=== PATIENT | female | born 1960 | race Caucasian/White ===

== ENCOUNTER 2021-11-12 22:07 | Inpatient (IN) ==
[2021-11-12] MEDS ORDERED: dilTIAZem HCl 5 MG/ML 5 ML VIAL IV STA (22:56)
[2021-11-12] MEDS ORDERED: SODIUM CHLORIDE 0.9% 500 ML IV STA (22:56)
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
[2021-11-12 23:18] LABS: Basophils # (auto) 0.03 K/uL (0-0.2); Basophils % (auto) 0.3 %; Hematocrit (blood only) 28.6 % (37-47); Hemoglobin 8.8 g/dL (12.0-16.0); Immature Granulocytes # (auto) 0.04 K/uL (0.00-0.02); Immature Granulocytes % (auto) 0.4 %; Lymphocytes # (auto) 1.93 K/uL (1.2-3.4); Lymphocytes % (auto) 19.1 %; Mean Corpuscular Hemoglobin 17.6 pg (25-34); Mean Corpuscular Hgb Conc 30.8 g/dL (32-36); Mean Corpuscular Volume 57.3 fL (80-100); Mean Platelet Volume 8.6 fL (7.4-10.4); Monocytes # (auto) 0.65 K/uL (0.11-0.59); Monocytes % (auto) 6.4 %; Neutrophils # (auto) 7.04 K/uL (1.4-6.5); Neutrophils % (auto) 69.8 %; Platelet Count 667 K/uL (130-400); RDW Coefficient of Variation 16.6 % (11.5-14.5); RDW Standard Deviation 34.6 fL (36.4-46.3); Red Blood Count 4.99 M/uL (4.2-5.4); White Blood Count 10.09 K/uL (4.8-10.8)
[2021-11-12] MEDS ORDERED: METOPROLOL TARTRATE 1 MG/ML VIAL IV STA (23:28)
[2021-11-12 23:38] LABS: Hypochromasia Present; Microcytosis Present; Schistocytes 1+; Target Cells 1+
[2021-11-12 23:43] LABS: Acetaminophen < 3 ug/ml (10-30); Salicylate < 3.0 mg/dl (3.0-30); Troponin I High Sensitivity 3.4 pg/ml (0-14)
[2021-11-12 23:45] LABS: Albumin Globulin Ratio 0.7 (0.9-2); Albumin Level 3.4 gm/dl (3.4-5.0); BUN Creatinine Ratio 22.5 (10-20); Bilirubin,Total 0.5 mg/dl (0.2-1.0); Calcium 9.3 mg/dl (8.5-10.1); Creatinine Clr Calc Pharmacy 90.8 ml/min; Est GFR (African American) 82.2 ml/min; Est GFR (Non-African American) 70.9 ml/min; Globulin 5.1 gm/dl (2.5-4.0); Total Protein 8.5 gm/dl (6.0-8.3)
[2021-11-12 23:51] LABS: Thyroid Stimulating Hormone 27.669 uIu/ml (0.300-4.500)
[2021-11-13 00:37] LABS: T4 Free Thyroxine 0.39 ng/dl (0.61-1.60)
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
[2021-11-13] MEDS ORDERED: MoRPHine SULFATE 4 MG/ML 1 ML CARP\\VIAL IV STA (01:57)
[2021-11-13] MEDS ORDERED: STAT IV Infusion **Titration per Protocol STA (02:29)
[2021-11-13 02:33] LABS: Partial Thromboplastin Time 26.6 Seconds (21.0-31.0); Prothrombin Time 10.4 Seconds (9.0-12.0)
[2021-11-13] MEDS: dilTIAZem HCL 125 MG in DEXTROSE 5% 100 ML IV SCH ×2 (03:20→17:19)
[2021-11-13] MEDS ORDERED: Heparin IV Adult Wt-Based Low-Dose *NO* Bolus Protocol IV SCH (05:34)
[2021-11-13] MEDS ORDERED: traMADol HCL 50 MG TABLET PO PRN (05:34)
[2021-11-13] MEDS ORDERED: NITROGLYCERIN SL 0.4 MG/TAB TAB SL PRN (05:34)
[2021-11-13] MEDS ORDERED: HEPARIN SODIUM/DEXTROSE 25,000 UNITS/500 ML BAG IV SCH (05:34)
[2021-11-13] MEDS: FUROSEMIDE 40 MG/4 ML VIAL IV SCH ×2 (06:18→18:07)
[2021-11-13] MEDS ORDERED: LEVOTHYROXINE SODIUM 25 MCG TABLET PO SCH (06:30)
[2021-11-13] MEDS: cefTRIAXone SODIUM 2,000 MG in DEXTROSE 5% 50 ML IV SCH (06:42)
--- NOTE | 2021-11-13 07:28 | Ultrasound Report ---
RIGHT LOWER EXTREMITY VENOUS DOPPLER CLINICAL HISTORY: R LE swelling eval DVT COMPARISON STUDY: Bilateral lower extremity venous Doppler ultrasound February 28, 2013. TECHNIQUE: Sonography of the deep venous system of the right lower extremity was performed. Compress ion and augmentation were evaluated. FINDINGS: This exam is compromised by suboptimal penetration, particularly affecting visualization of the calf vessels given edema. The right common femoral, superficial femoral and popliteal veins were compressible. Augmentation was normal. Flow was shown within the deep calf vessels. IMPRESSION: 1. Technically difficult exam but no evidence of deep venous thrombus within the right lower extremit y. 2. Right calf edema, a nonspecific finding. No discrete fluid collection. ACT 112: Negative or not required by law. Electronically signed by: Apolinar Mendoza M.D. 11/13/2021 7:27 AM
[2021-11-13 07:49] LABS: Basophils # (auto) 0.02 K/uL (0-0.2); Basophils % (auto) 0.3 %; Eosinophils # (auto) 0.35 K/uL (0-0.5); Eosinophils % (auto) 4.8 %; Hematocrit (blood only) 24.6 % (37-47); Hemoglobin 7.4 g/dL (12.0-16.0); Immature Granulocytes # (auto) 0.01 K/uL (0.00-0.02); Immature Granulocytes % (auto) 0.1 %; Lymphocytes # (auto) 1.83 K/uL (1.2-3.4); Lymphocytes % (auto) 25.1 %; Mean Corpuscular Hemoglobin 17.2 pg (25-34); Mean Corpuscular Hgb Conc 30.1 g/dL (32-36); Mean Corpuscular Volume 57.2 fL (80-100); Mean Platelet Volume 8.7 fL (7.4-10.4); Monocytes # (auto) 0.72 K/uL (0.11-0.59); Monocytes % (auto) 9.9 %; Neutrophils # (auto) 4.35 K/uL (1.4-6.5); Neutrophils % (auto) 59.8 %; Platelet Count 575 K/uL (130-400); RDW Coefficient of Variation 16.5 % (11.5-14.5); RDW Standard Deviation 34.4 fL (36.4-46.3); White Blood Count 7.28 K/uL (4.8-10.8)
[2021-11-13] MEDS: TOPIRAMATE 100 MG TAB PO SCH ×2 (08:07→21:20)
[2021-11-13] MEDS: ASPIRIN 81 MG ECTAB PO SCH (08:07)
[2021-11-13] MEDS: busPIRone 15 MG TAB PO SCH ×2 (08:07→21:22)
[2021-11-13] MEDS: PANTOprazole 40 MG TAB PO SCH (08:08)
[2021-11-13] MEDS: DULoxetine HCL 60 MG CAP PO SCH ×2 (08:08→21:20)
[2021-11-13] MEDS: rOPINIRole HCL 1 MG TABLET PO SCH ×3 (08:08→21:22)
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
[2021-11-13] MEDS: ACETAMINOPHEN 325 MG TAB PO PRN ×2 (08:15→18:06)
[2021-11-13 08:17] LABS: Hypochromasia Present; Microcytosis Present; Poikilocytosis Present; Target Cells 1+
[2021-11-13 08:31] LABS: BUN Creatinine Ratio 15.9 (10-20); Calcium 7.7 mg/dl (8.5-10.1); Creatinine Clr Calc Pharmacy 91.8 ml/min; Est GFR (African American) 83.4 ml/min; Est GFR (Non-African American) 71.9 ml/min; Magnesium 1.8 mg/dl (1.7-2.4); Potassium 3.3 mmol/L (3.5-5.1)
[2021-11-13 08:34] LABS: Troponin I High Sensitivity 2.5 pg/ml (0-14)
[2021-11-13] MEDS ORDERED: PHARMACY GLYCEMIC MGMT CONSULT PRN (08:36)
[2021-11-13 08:41] LABS: Folate (Folic Acid) 15.45 ng/ml (>5.38)
[2021-11-13] MEDS ORDERED: AMIODARONE 200 MG TAB PO SCH (09:00)
--- NOTE | 2021-11-13 09:33 | XRay Report ---
XR chest 1V portable HISTORY: 61 years-old Female Chest Pain . Acute atypical chest pain COMPARISON: Chest radiograph 11/03/2021 TECHNIQUE: Portable AP view of the chest FINDINGS: The cardiac silhouette is enlarged. Pulmonary vascular congestion with interstitial coarsening. No pn eumothorax or large pleural effusion. Degenerative changes of the shoulders and spine. IMPRESSION: Cardiomegaly with pulmonary vascular congestion and mild interstitial coarsening which ma y represent developing pulmonary edema. ACT 112: Negative or not required by law. The above report was generated using voice recognition software. It may contain grammatical, syntax o r spelling errors. Electronically signed by: Nelson Hernández M.D. 11/13/2021 9:31 AM
[2021-11-13 09:51] LABS: BUN Creatinine Ratio 19.5 (10-20); Calcium 8.8 mg/dl (8.5-10.1); Creatinine Clr Calc Pharmacy 98.5 ml/min; Est GFR (African American) 90.8 ml/min; Est GFR (Non-African American) 78.3 ml/min; Potassium 3.8 mmol/L (3.5-5.1)
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
[2021-11-13 10:20] LABS: Estimated Average Glucose 140 mg/dl; Hemoglobin A1C 6.5 % (4.5-5.6)
--- NOTE | 2021-11-13 11:33 | Psychiatric Consultation ---
Date of Consultation November 13, 2021 Impression / Recommendations Impression This is a 61 yo with a history of depression, anxiety and possibly BPAD admitted medically. Acute risk of self-harm is low given denial of SI, no hx prior attempts, strong reasons for living, and improvement in mood. Suspect untreated afib and elevated TSH contributing to recent worsening of anxiety, SI statement on arrival to ED seems to be in context of situation stressor of argument and has now resolved with being admitted to hospital and medical conditions potentially contributing to previous distress. Reasonable to continue with prior to admission Cymbalta, Buspar and Topimax. Limited data for use of Topimax for BPAD and given her recollection of no recent episodes of ekaterina suspect BPAD less likely. Psych liason to attempt further evaluation of mood symptoms via PHQ-9 when she is able to tolerate a more extended interview. Could benefit from establishment would local psychiatric providers if she remains in this region. 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 Risk Factors Assessment : Yes Do You Have Access To A Gun?: No Health Problems: Yes Mental Health Diagnoses: Yes Substance Use Disorders: No Previous Attempt: No Family History of Suicide: No Previous Psychiatric Hospitalization: Yes Hopelessness: No Protective Factors Assessment Stable Relationships: Yes Supportive Family: Yes Psych History Identifying Data 61 yo woman who relocated to [facility] from [place] and has been staying with a friend admitted medically for afib. Psychiatry consulted for suicide risk assessment. Chief Complaint "I'm pretty good". History of Present Illness Kym is very tired this morning but with repeated verbal prompts is able to participate in a short interview. She is fully oriented. Recalls getting in an argument with a friend with whom she has been staying since moving to [facility] to be closer to her children. She felt overwhelmed and called 911 due to this argument and she states due to worsening leg pain. 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 Since that time she has been denying SI consistently. This morning states she did have those brief thoughts of SI with plan "because I was overwhelmed" and expands "they were just words, I wouldn't do that". She denies current SI stating "I would never hurt myself" and goes on to say she "absolutely" has reasons to live including her children and grandchildren and stating she wants to be around for many years to "see my grandkids graduate". Her grandchildren are currently ages 9-13yo. She reports her mood has been "pretty good" since being admitted to the hospital and confirms that she is prescribed Cymbalta, Buspar and Topimax for depression and anxiety. She cannot recall why she takes Topimax, per chart review appears possible hx of BPAD. She cannot recall any recent or past manic episodes. Recalls one prior psych hospitalization, sometime within the last 10 years, for depression but denies having any SI at that time. No history of prior suicide attempts. She feels safe in the hospital states she would alter nursing should SI re-develop in the future and demonstrates how to correctly use her call button should this occur. Past Psychiatric History Outpatient Services: denies any local services Do You Have Access To A Gun?: No History of Previous Suicide Attempt: No Past Medication Trials: unknown Allergies Allergy/AdvReac Type Severity Reaction Status Date / Time chiquitalan G-F 20 Allergy Severe CAN'T Verified 11/12/21 23:16 REMEMBER mushroom Allergy Intermediate RASH Verified 11/12/21 23:16 Home Medications Medication Instructions Recorded Confirmed Type amiodarone 200 mg tablet 200 mg PO DAILY 11/12/21 11/12/21 History atorvastatin 10 mg tablet 10 mg PO HS 11/12/21 11/12/21 History buspirone 10 mg tablet 10 mg PO Q12H 11/12/21 11/12/21 History buspirone 15 mg tablet 15 mg PO BID 11/12/21 11/12/21 History buspirone 5 mg tablet 10 mg PO BID 11/12/21 11/12/21 History cyclobenzaprine 10 mg tablet 10 mg PO Q8H PRN 11/12/21 11/12/21 History diclofenac sodium 25 mg 25 mg PO TID PRN 11/12/21 11/12/21 History tablet,delayed release digoxin 125 mcg (0.125 mg) tablet 125 mcg PO QPM 11/12/21 11/12/21 History diltiazem HCl 30 mg tablet 30 mg PO TID 11/12/21 11/12/21 History duloxetine 60 mg capsule,delayed 60 mg PO BID 11/12/21 11/12/21 History release sprinkle furosemide 20 mg tablet (Lasix) 20 mg PO BID 11/12/21 11/12/21 History levothyroxine 25 mcg tablet 25 mcg PO DAILY 11/12/21 11/12/21 History metoprolol tartrate 50 mg tablet 50 mg PO BID 11/12/21 11/12/21 History omeprazole 20 mg tablet,delayed 40 mg PO DAILY 11/12/21 11/12/21 History release pantoprazole 40 mg tablet,delayed 40 mg PO DAILY 11/12/21 11/12/21 History release ropinirole 0.25 mg tablet 0.25 mg PO HS 11/12/21 11/12/21 History ropinirole 1 mg tablet 1 mg PO TID 11/12/21 11/12/21 History topiramate 100 mg tablet 100 mg PO BID 11/12/21 11/12/21 History tramadol 50 mg tablet 50 mg PO DIRECTED PRN 11/12/21 11/12/21 History zolpidem 6.25 mg tablet,extended 6.25 mg PO HS 11/12/21 11/12/21 History release,multiphase (Ambien CR) Personal History Living Arrangements: Homeless (had been staying with a friend) Number Of Children: 3 Beliefs That Will Affect Care: None Patient History Social History Smoking Status: Never smoker Hx Alcohol Use: No Hx Substance Use: Yes Last Used Substance Other:: 30 years ago 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 Beliefs That Will Affect Care: None Current Living Situation: Homeless Feels Safe at Home: Yes Safety Concerns: Feels Safe At This Time Physical Exam Psychiatric: Orientation: alert and oriented x 3 Apperance: appropriately dressed and appropriately groomed Eye Contact: good eye contact Motor Behavior: no abnormal motor movements Speech: normal rate/rhythm/volume of speech Affect: euthymic affect Mood: no depressed mood and no anxious mood Thought Process: goal directed thought process Thought Content: reality based without delusions Suicidal Thoughts: denies suicidal thoughts Homicidal Thoughts: denies homicidal thoughts Hallucinations: no auditory hallucinations and no visual hallucinations Cognition: recent memory grossly intact, attention grossly intact and language grossly intact Estimated Intelligence: consistent with education level Insight: + fair insight Judgement: + limited judgement Vital Signs (Past 24 Hours): Last Vital Signs Temp 36.8 C 11/13/21 07:54 Pulse 156 H 11/13/21 07:54 Resp 20 11/13/21 07:54 BP 118/90 11/13/21 07:54 Pulse Ox 96 11/13/21 07:54 Review of Systems All systems reviewed & are unremarkable except as noted in HPI & below Results & Data (PSY) Laboratory Results Na+ reviewed-initially low but appears redraw normal and consistent with prior results from ED; elevated TSH Diagnostic Findings EKG reviewed, in afib, QTc normal Medications Administered Acetaminophen (Acetaminophen 325 Mg Tab) 650 mg PO Q4H PRN PRN Reason: Pain or Fever Stop: 12/13/21 05:33 Last Admin: 11/13/21 08:15 Dose: 650 mg Documented by: [id number] Aspirin (Aspirin 81 Mg Ectab) 81 mg PO QAM [facility] Stop: 12/13/21 08:59 Last Admin: 11/13/21 08:07 Dose: 81 mg Documented by: [id number] Buspirone HCl (Buspirone 15 Mg Tab) 15 mg PO BID [facility] Stop: 12/13/21 08:59 Last Admin: 11/13/21 08:07 Dose: 15 mg Documented by: [id number] Duloxetine HCl (Duloxetine Hcl 60 Mg Cap) 60 mg PO BID [facility] Stop: 12/13/21 08:59 Last Admin: 11/13/21 08:08 Dose: 60 mg Documented by: [id number] Furosemide (Furosemide 40 Mg/4 Ml Vial) 40 mg IV [id number] [facility] Stop: 12/13/21 05:59 Last Admin: 11/13/21 06:18 Dose: 40 mg Documented by: [id number] Diltiazem HCl 125 mg/ Dextrose 125 mls @ 7.5 mls/hr IV .[id number] [facility]; Protocol Stop: 12/13/21 02:29 Last Titration: 11/13/21 03:54 Dose: 7.5 mg/hr, 7.5 mls/hr Documented by: [id number] Cosigned by: [id number] Admin: 11/13/21 03:20 Dose: 5 mg/hr, 5 mls/hr Documented by: [id number] Cosigned by: [id number] Ceftriaxone Sodium 2,000 mg/ (Dextrose) 70 mls @ 100 mls/hr IV Q24H [facility]; Protocol Stop: 11/20/21 05:59 Last Infusion: 11/13/21 07:38 Dose: 0 mls/hr Documented by: [id number] Admin: 11/13/21 06:42 Dose: 100 mls/hr Documented by: [id number] Levothyroxine Sodium (Levothyroxine Sodium 25 Mcg Tablet) 25 mcg PO DAILYBB [facility]IRE[facility] Stop: 12/13/21 06:29 Last Admin: 11/13/21 06:18 Dose: 25 mcg Documented by: [id number] Pantoprazole Sodium (Pantoprazole 40 Mg Tab) 40 mg PO DAILY [facility] Stop: 12/13/21 08:59 Last Admin: 11/13/21 08:08 Dose: 40 mg Documented by: [id number] Ropinirole HCl (Ropinirole Hcl 1 Mg Tablet) 1 mg PO TID [facility] Stop: 12/13/21 08:59 Last Admin: 11/13/21 08:08 Dose: 1 mg Documented by: [id number] Topiramate (Topiramate 100 Mg Tab) 100 mg PO BID [facility] Stop: 12/13/21 08:59 Last Admin: 11/13/21 08:07 Dose: 100 mg Documented by: [id number] Coding Level of Care Code 02487 [facility] Intl Hosp Care Lvl 2 Diagnoses Adjustment disorder with disturbance of emotion F43.29
[2021-11-13] MEDS: METOPROLOL TARTRATE 25 MG TAB PO SCH ×2 (11:43→18:06)
[2021-11-13 13:05] LABS: Hematocrit (blood only) 25.1 % (37-47); Hemoglobin 7.5 g/dL (12.0-16.0)
--- NOTE | 2021-11-13 13:17 | Electrocardiogram Report ---
Test Reason : Blood Pressure : / mmHG Vent. Rate : 121 BPM Atrial Rate : 122 BPM P-R Int : 000 ms QRS Dur : 086 ms QT Int : 308 ms P-R-T Axes : 000 061 023 degrees QTc Int : 437 ms Atrial fibrillation with rapid ventricular response Low voltage QRS Nonspecific T wave abnormality Abnormal ECG When compared with ECG of 03-NOV-2021 12:30, No significant change was found Confirmed by Mingo Tucker ([id number]) on 11/13/2021 1:16:53 PM Referred By: REFERRED SELF Confirmed By:Ruben Tucker
[2021-11-13 16:07] LABS: Appearance Urine Clear (Clear); Bacteria Urine Automated 2+ (Negative); Bilirubin Urine Negative (Negative); Blood Urine Negative (Negative); Color Urine Yellow; Epithelial Cell Urine Auto 0-5 /lpf (0-5); Glucose Urine UA Negative (Negative); Ketones Urine Negative (Negative); Leukocyte Esterase Urine 3+ (Negative); Nitrite Urine Negative (Negative); Protein Urine Negative (Negative); RBC Urine Automated 0-4 /hpf (0-4); Specific Gravity Urine 1.008 (1.000-1.030); Urobilinogen Urine Negative (Negative); pH Urine 8.5 (4.5-7.5)
[2021-11-13 16:28] LABS: Amphetamines+Metham, Urine Neg (Neg); Barbiturates, Urine Neg (Neg); Benzodiazepine, Urine Neg (Neg); Cocaine, Urine Neg (Neg); MDMA (Ecstacy), Urine Neg (Neg); Methadone, Urine Neg (Neg); Opiate, Urine Pos (Neg); Phencyclidine, Urine Neg (Neg)
--- NOTE | 2021-11-13 17:29 | Communication Note ---
Date of Service: November 13, 2021 Pt was seen and examined for follow up of anxiety and suicidal thought. Lying in bed very drowsy and sleepy. Pt was able to arouse but she got back to sleep. She denies any suicidal thought. Case discussed psych team - she does not meet any criteria for inpatient psych treatment since she is not suicidal. Telemonitor showed Afib with RVR. Currently she is on cardizem drip. IV heparin drip discontinues due to drop in hgb. cardiology on board. Cardiology recommended to resume oral metoprolol, metoprolol tartrate 25 mg every 6 hours. Continue oral digoxin. Continue IV lasix for bilateral lower extremity edema: Continue ceftriaxone for possible cellulitis for the erythematous changes in the lower extremity. ECHO pending. Continue monitor closely in telemetry. MD Aisha
[2021-11-13 18:04] LABS: Hematocrit (blood only) 27.6 % (37-47); Hemoglobin 8.4 g/dL (12.0-16.0)
[2021-11-13] MEDS: ZOLPIDEM TARTRATE 5 MG TAB PO SCH (21:20)
[2021-11-13] MEDS: rOPINIRole HCL 0.25 MG TABLET PO SCH (21:20)
[2021-11-13] MEDS: DIGOXIN 0.125 MG TAB PO SCH (21:21)
[2021-11-13] MEDS: ATORVASTATIN 10 MG TAB PO SCH (21:21)
[2021-11-14] MEDS: METOPROLOL TARTRATE 25 MG TAB PO SCH ×2 (00:16→05:40)
[2021-11-14] MEDS: LEVOTHYROXINE SODIUM 50 MCG TABLET PO SCH (05:40)
[2021-11-14] MEDS: cefTRIAXone SODIUM 2,000 MG in DEXTROSE 5% 50 ML IV SCH (05:40)
[2021-11-14 07:38] LABS: Basophils # (auto) 0.02 K/uL (0-0.2); Basophils % (auto) 0.3 %; Eosinophils # (auto) 0.29 K/uL (0-0.5); Eosinophils % (auto) 3.8 %; Hematocrit (blood only) 27.3 % (37-47); Hemoglobin 8.6 g/dL (12.0-16.0); Immature Granulocytes # (auto) 0.02 K/uL (0.00-0.02); Immature Granulocytes % (auto) 0.3 %; Lymphocytes # (auto) 1.42 K/uL (1.2-3.4); Lymphocytes % (auto) 18.8 %; Mean Corpuscular Hgb Conc 31.5 g/dL (32-36); Mean Platelet Volume 9.2 fL (7.4-10.4); Monocytes # (auto) 0.86 K/uL (0.11-0.59); Monocytes % (auto) 11.4 %; Neutrophils # (auto) 4.96 K/uL (1.4-6.5); Neutrophils % (auto) 65.4 %; Platelet Count 635 K/uL (130-400); RDW Coefficient of Variation 16.5 % (11.5-14.5); RDW Standard Deviation 33.9 fL (36.4-46.3); Red Blood Count 4.79 M/uL (4.2-5.4); White Blood Count 7.57 K/uL (4.8-10.8)
[2021-11-14 08:14] LABS: Hypochromasia Present; Microcytosis Present; Polychromasia 1+; Schistocytes 1+; Target Cells 1+
[2021-11-14] MEDS: DULoxetine HCL 60 MG CAP PO SCH ×2 (08:23→21:31)
[2021-11-14] MEDS: busPIRone 15 MG TAB PO SCH ×2 (08:23→21:27)
[2021-11-14] MEDS: rOPINIRole HCL 1 MG TABLET PO SCH ×3 (08:23→21:27)
[2021-11-14] MEDS: FUROSEMIDE 40 MG/4 ML VIAL IV SCH ×2 (08:24→17:07)
[2021-11-14] MEDS: TOPIRAMATE 100 MG TAB PO SCH ×2 (08:24→21:28)
[2021-11-14] MEDS: PANTOprazole 40 MG TAB PO SCH (08:24)
[2021-11-14] MEDS: ASPIRIN 81 MG ECTAB PO SCH (08:24)
[2021-11-14] MEDS: ONDANSETRON INJ 2 MG/ML 2 ML VIAL IV PRN (08:53)
[2021-11-14] MEDS: traMADol HCL 50 MG TABLET PO PRN ×2 (08:54→17:06)
--- NOTE | 2021-11-14 10:53 | Cardiology Progress Note ---
Date of Service November 14, 2021 Assessment & Plan (1) Atrial fibrillation with RVR: (2) Thalassemia: (3) HTN (hypertension): (4) Right heart failure, unspecified: (5) Peripheral edema: Plan: Atrial fibrillation with a rapid ventricular response. Patient asymptomatic. Duration unknown, appearing to be longstanding persistent. Patient not recently prescribed anticoagulation, risks appearing to be greater than the benefit at present (see below). Improving multifactorial (cellulitis, heart failure, anemia, hypothyroidism) bilateral lower extremity edema. Anemia. Iron deficiency. History of thalassemia. Recommendations: Increase/change oral metoprolol tartrate to 50 mg every 8 hours Continue oral digoxin Wean off IV diltiazem Anticoagulation risks appears greater than the benefit. Continue IV diuretic Check electrolytes Awaiting resting echocardiogram, evaluation by Dr. Dunlap DVT prophylaxis as per hospitalist Admission and Anticipated Discharge Date Admission Date: November 13, 2021 Supervising Physician Co-Signing Physician Notes Patient seen and examined with Nghia Jorgensen PA-C. Agree with findings and assessment as above. Medication changes as above. Continue to monitor on tele. Echo unremarkable. Subjective Patient seen and examined. Chart, medications, and telemetry reviewed. Feeling better overall. Laying completely flat without cough, orthopnea, or PND. Legs are less erythematous, with improvement in edema. No chest pain or shortness of breath. No dizziness. No subjective fevers or chills. Telemetry: Atrial fibrillation in the 100 to 130 bpm range (on 5 mg/hr IV diltiazem, metoprolol tartrate 25 mg every 6 hours and oral digoin 125 mcg/day Echocardiogram: pending Review of Systems Review of Systems: Complete Review of Systems is as stated above, negative, or noncontributory. Physical Exam Physical Exam: General: A&Ox3. NAD. Obese. HENT: Normocephalic. Atraumatic. Eyes: PER. Conjunctiva pink, sclera clear. Neck: No carotid bruits. No JVD. No HJR. Heart: Irregularly irregular at 110 bpm. No murmur appreciated. Lungs: Clear to auscultation. Abdomen: +BS. Soft. Nontender. No masses or organomegaly. Extremities: 1+ right greater than left lower extremity edema. Much less erythematous. Multiple excoriations appear improved. No clubbing. No cyanosis. Limited neurological examination is without focal deficits. Pulses: radial=2/4, posterior tibial=2/4. Results & Data ([facility]) Vital Signs (Past 12 Hours) Vital Signs Temp Pulse Pulse Resp BP Pulse Ox 11/14/21 07:20 95 H 11/14/21 07:00 37.1 C 105 H 19 115/77 94 11/14/21 04:52 94 H 11/14/21 03:29 36.7 C 94 H 18 112/68 94 11/13/21 23:22 36.8 C 105 H 18 114/65 95 Laboratory Results Laboratory Results - last 24 hr 11/12/21 11/12/21 11/12/21 22:38 22:38 22:38 WBC RBC Hgb Hct MCV MCH MCHC RDW Std Deviation RDW Coeff of Fredrick Plt Count MPV Immature Gran % (Auto) Neut % (Auto) Lymph % (Auto) Curry % (Auto) Eos % (Auto) Baso % (Auto) Neut # (Auto) Lymph # (Auto) Curry # (Auto) Eos # (Auto) Baso # (Auto) Immature Gran # (Auto) Polychromasia Hypochromasia Microcytosis Target Cells Schistocytes Troponin I High Sens Urine Color Yellow Urine Appearance Clear Urine pH 8.5 H Ur Specific [place] 1.008 Urine Protein Negative Urine Glucose (UA) Negative Urine Ketones Negative Urine Blood Negative Urine Nitrite Negative Urine Bilirubin Negative Urine Urobilinogen Negative Ur Leukocyte Esterase 3+ H Urine WBC (Auto) 10-30 H Urine RBC (Auto) 0-4 U Hyaline Cast (Auto) 1-5 U Epithel Cells (Auto) 0-5 Urine Bacteria (Auto) 2+ H Urine Opiates Screen Pos H U Codeine Confrm GC/MS Pending Ur Morphine (GC/MS) Pending Ur Hydrocodone (GC/MS) Pending Ur Norhydrocodone Pending Ur Noroxycodone Pending Urine Oxycodone (GC/MS) Pending U Oxymorphone GC/MS Pending Ur Methadone, Qual Neg Ur Hydromorphone (GC/MS) Pending Urine Barbiturates Neg Ur Phencyclidine (PCP) Neg U Amphetamin/Meth Scrn Neg MDMA (Ecstasy) Screen Neg U Benzodiazepines Scrn Neg Ur Cocaine Metabolite Neg U Marijuana (THC) Screen Neg Drug Screen Comment Pending 0511/13/21 11/13/21 12:49 12:49 17:30 WBC RBC Hgb 7.5 L 8.4 L Hct 25.1 L 27.6 L MCV MCH MCHC RDW Std Deviation RDW Coeff of Fredrick Plt Count MPV Immature Gran % (Auto) Neut % (Auto) Lymph % (Auto) Curry % (Auto) Eos % (Auto) Baso % (Auto) Neut # (Auto) Lymph # (Auto) Curry # (Auto) Eos # (Auto) Baso # (Auto) Immature Gran # (Auto) Polychromasia Hypochromasia Microcytosis Target Cells Schistocytes Troponin I High Sens 3.5 Urine Color Urine Appearance Urine pH Ur Specific [place] Urine Protein Urine Glucose (UA) Urine Ketones Urine Blood Urine Nitrite Urine Bilirubin Urine Urobilinogen Ur Leukocyte Esterase Urine WBC (Auto) Urine RBC (Auto) U Hyaline Cast (Auto) U Epithel Cells (Auto) Urine Bacteria (Auto) Urine Opiates Screen U Codeine Confrm GC/MS Ur Morphine (GC/MS) Ur Hydrocodone (GC/MS) Ur Norhydrocodone Ur Noroxycodone Urine Oxycodone (GC/MS) U Oxymorphone GC/MS Ur Methadone, Qual Ur Hydromorphone (GC/MS) Urine Barbiturates Ur Phencyclidine (PCP) U Amphetamin/Meth Scrn MDMA (Ecstasy) Screen U Benzodiazepines Scrn Ur Cocaine Metabolite U Marijuana (THC) Screen Drug Screen Comment 11/13/21 11/14/21 19:34 06:09 WBC 7.57 RBC 4.79 Hgb 8.6 L Hct 27.3 L MCV 57.0 L MCH 18.0 L MCHC 31.5 L RDW Std Deviation 33.9 L RDW Coeff of Fredrick 16.5 H Plt Count 635 H MPV 9.2 Immature Gran % (Auto) 0.3 Neut % (Auto) 65.4 Lymph % (Auto) 18.8 Curry % (Auto) 11.4 Eos % (Auto) 3.8 Baso % (Auto) 0.3 Neut # (Auto) 4.96 Lymph # (Auto) 1.42 Curry # (Auto) 0.86 H Eos # (Auto) 0.29 Baso # (Auto) 0.02 Immature Gran # (Auto) 0.02 Polychromasia 1+ Hypochromasia Present Microcytosis Present Target Cells 1+ Schistocytes 1+ Troponin I High Sens 3.5 Urine Color Urine Appearance Urine pH Ur Specific [place] Urine Protein Urine Glucose (UA) Urine Ketones Urine Blood Urine Nitrite Urine Bilirubin Urine Urobilinogen Ur Leukocyte Esterase Urine WBC (Auto) Urine RBC (Auto) U Hyaline Cast (Auto) U Epithel Cells (Auto) Urine Bacteria (Auto) Urine Opiates Screen U Codeine Confrm GC/MS Ur Morphine (GC/MS) Ur Hydrocodone (GC/MS) Ur Norhydrocodone Ur Noroxycodone Urine Oxycodone (GC/MS) U Oxymorphone GC/MS Ur Methadone, Qual Ur Hydromorphone (GC/MS) Urine Barbiturates Ur Phencyclidine (PCP) U Amphetamin/Meth Scrn MDMA (Ecstasy) Screen U Benzodiazepines Scrn Ur Cocaine Metabolite U Marijuana (THC) Screen Drug Screen Comment
--- NOTE | 2021-11-14 11:14 | Electrocardiogram Report ---
Test Reason : Blood Pressure : / mmHG Vent. Rate : 100 BPM Atrial Rate : 113 BPM P-R Int : 000 ms QRS Dur : 090 ms QT Int : 336 ms P-R-T Axes : 000 067 001 degrees QTc Int : 433 ms Atrial fibrillation Low voltage QRS Nonspecific T wave abnormality Abnormal ECG When compared with ECG of 12-NOV-2021 22:16, No significant change was found Confirmed by Mingo Tucker ([id number]) on 11/14/2021 11:14:22 AM Referred By: REFERRED SELF Confirmed By:Ruben Tucker
[2021-11-14] MEDS ORDERED: METOPROLOL TARTRATE 50 MG TAB PO SCH (11:15)
[2021-11-14 12:15] LABS: BUN Creatinine Ratio 14.4 (10-20); Calcium 9.1 mg/dl (8.5-10.1); Creatinine Clr Calc Pharmacy 86.6 ml/min; Est GFR (African American) 81.1 ml/min
[2021-11-14] MEDS: METOPROLOL TARTRATE 50 MG TAB PO SCH ×2 (13:24→21:27)
[2021-11-14] MEDS: ACETAMINOPHEN 325 MG TAB PO PRN ×2 (14:46→21:37)
[2021-11-14] MEDS: ATORVASTATIN 10 MG TAB PO SCH (21:27)
[2021-11-14] MEDS: DIGOXIN 0.125 MG TAB PO SCH (21:28)
[2021-11-14] MEDS: rOPINIRole HCL 0.25 MG TABLET PO SCH (21:29)
[2021-11-14] MEDS: dilTIAZem HCL 125 MG in DEXTROSE 5% 100 ML IV SCH ×2 (21:30→22:16)
[2021-11-14] MEDS: ZOLPIDEM TARTRATE 5 MG TAB PO SCH (21:36)
[2021-11-14] MEDS: CYCLOBENZAPRINE HCL 10 MG TAB PO PRN (21:37)
--- NOTE | 2021-11-14 22:54 | Hospitalist Progress Note ---
Date of Service November 14, 2021 Assessment & Plan (1) Atrial fibrillation with RVR: Plan: Seems to have history of longstanding persistent atrial fibrillation: Rate control on IV cardizem drip Cardiology on board Metoprolol increase to 50mg q8h and continue Digoxin ECHO showed no LV wall motion abnormality with EF 55-60% Continue IV cardizem, plan to wean off IV heparin drip was discontinue due to drop on hemoglobin Continue monitor in tele UTI Urine cx grew gram negative bacilli Will follow urine sensitivity Continue IV Rocephin Anemia Baseline Hgb btw 8 to 9, Hgb 8.6 today Last colosnospy was on 08/17- normal. GI recommended 10 yrs follow IV heparin drip discontinued because hgb dropped to 7.3 Continue monitor CBC Depression Anxiety Dipolar disorder Denies any suicide ideation Psych consulted - recommended to continue home psych meds 1 to 1 discontinue Hypothyroidism TSH 22 Levothyroxine increased to 50mcg Check TSH in 4 to 6 weeks B/L LE edema Doppler of LE extremity showed no DVT Continue Lasix 40mg BID Hx of PE Pt was on coumadin several years ago Not on any anticoagulant currently Vergara's esophagus Continue omeprazole. Hyperlipidemia: Continue statin. Morbid obesity BMI 51.8 Counseling on weight loss Sleep apnea: Not on any CPAP DVT px IV heparin drip discontinue due to hgb dropped to 7.3 SCD for now Admission and Anticipated Discharge Date Admission Date: November 13, 2021 Subjective Pt was seen and examined for follow of afib, anxiety and suicidal ideation Lying in bed with no acute distress resting comfortable in bed Pt said that she does not feel to do anything She said that she did not sleep last night Denies any chest pain, palpitation, dizziness and SOB Review of Systems Review of Systems: All systems reviewed & are unremarkable except as noted in Subjective Physical Exam Physical Exam: General- No acute distress Head- atraumatic Eyes- PERRL, EOMI, ENT- oropharynx clear Neck- supple, no JVD Lungs- clear to auscultation Heart- irregular rhythm; no murmur Abdomen- normal bowel sounds, soft, nontender Extremities- no calf tenderness, +edema Neuro- alert, oriented x 3; PERRL, EOMI; no facial palsy; no dysarthria Skin- warm & dry Results & Data Results & Data ([facility]) Vital Signs (Past 12 Hours) Vital Signs Temp Pulse Pulse Resp BP BP Pulse Ox 05/17/22 22:37 36.6 C 87 18 98/66 L 94 11/14/21 21:28 89 11/14/21 19:30 36.9 C 89 18 121/84 95 11/14/21 17:45 95 H 11/14/21 15:36 36.8 C 92 H 114/79 91 11/14/21 13:20 90 106/70 11/14/21 11:29 36.9 C 109 H 22 132/82 92
[2021-11-15] MEDS: cefTRIAXone SODIUM 2,000 MG in DEXTROSE 5% 50 ML IV SCH (05:50)
[2021-11-15] MEDS: LEVOTHYROXINE SODIUM 50 MCG TABLET PO SCH (05:51)
[2021-11-15] MEDS: METOPROLOL TARTRATE 50 MG TAB PO SCH ×2 (05:51→15:09)
[2021-11-15 06:05] LABS: Hematocrit (blood only) 29.1 % (37-47); Mean Corpuscular Hemoglobin 17.8 pg (25-34); Mean Corpuscular Hgb Conc 30.9 g/dL (32-36); Mean Corpuscular Volume 57.6 fL (80-100); Mean Platelet Volume 8.6 fL (7.4-10.4); Nucleated RBC # (auto) 0.02 K/uL (0-0); Nucleated RBC % (auto) 0.3 %; Platelet Count 614 K/uL (130-400); RDW Coefficient of Variation 16.4 % (11.5-14.5); RDW Standard Deviation 34.1 fL (36.4-46.3); Red Blood Count 5.05 M/uL (4.2-5.4); White Blood Count 7.46 K/uL (4.8-10.8)
[2021-11-15 06:25] LABS: BUN Creatinine Ratio 13.3 (10-20); Calcium 8.7 mg/dl (8.5-10.1); Creatinine Clr Calc Pharmacy 86.8 ml/min; Est GFR (African American) 81.1 ml/min; Potassium 3.9 mmol/L (3.5-5.1)
[2021-11-15] MEDS: FUROSEMIDE 40 MG/4 ML VIAL IV SCH ×2 (07:07→17:35)
[2021-11-15] MEDS: rOPINIRole HCL 1 MG TABLET PO SCH ×3 (07:07→20:24)
[2021-11-15] MEDS: busPIRone 15 MG TAB PO SCH ×2 (07:08→20:22)
[2021-11-15] MEDS: ASPIRIN 81 MG ECTAB PO SCH (07:08)
[2021-11-15] MEDS: PANTOprazole 40 MG TAB PO SCH (07:08)
[2021-11-15] MEDS: DULoxetine HCL 60 MG CAP PO SCH ×2 (07:08→20:23)
[2021-11-15] MEDS: TOPIRAMATE 100 MG TAB PO SCH ×2 (07:09→20:24)
[2021-11-15] MEDS ORDERED: oxyCODONE HCL IR 5 MG TAB (IMMEDIATE RELEASE) PO ONE (07:51)
[2021-11-15] MEDS ORDERED: ERTAPENEM SODIUM 10 ML IV SCH (09:00)
--- NOTE | 2021-11-15 09:35 | Cardiology Progress Note ---
Date of Service November 15, 2021 Assessment & Plan (1) Atrial fibrillation with RVR: (2) Right heart failure, unspecified: (3) Thalassemia: (4) HTN (hypertension): (5) Peripheral edema: Plan: 1. Atrial fibrillation. Asymptomatic. Duration unknown, likely longstanding persistent. Heart rates improved. 2. Volume overload. Improving. Appears multifactorial in etiology - cellulitis, diastolic heart failure, anemia, hypothyroidism 3. Hypertension. Well controlled. 4. Anemia. Iron deficiency. History of thalassemia. Recommendations: Discontinue IV diltiazem Change metoprolol tartrate (50 mg Q8) to metoprolol succinate, 100 mg twice a day, starting tonight. Continue oral digoxin for now (stop if bradycardia observed) No anticoagulation (risks greater than the benefit, patient request). Amiodarone and diltiazem discontinued this admission. Likely transition to oral diuretic in AM of 11/16/2021. DVT prophylaxis as per hospitalist Admission and Anticipated Discharge Date Admission Date: November 13, 2021 Supervising Physician Co-Signing Physician Notes Patient seen and examined with Nghia Jorgensen PA-C. Agree with findings and assessment as above. Medication changes as above. Continue to monitor on tele. Echo unremarkable. Diltiazem drip will be discontinued. Metoprolol succinate 100 mg p.o. twice daily. Continue digoxin. Not an anticoagulation candidate. Amiodarone discontinued due to chronic A. fib and the risk of embolization. Subjective Patient seen and examined. Chart, medications, and telemetry reviewed. Feeling better. Lone complaint voiced is that of right hip/buttocks pain. Telemetry: Atrial fibrillation in the 70's and 80's, currently on 2.5 mg/hr IV diltiazem, metoprolol tartrate 50 Q8 hours, and oral digoin 125 mcg/day November 13, 2021 TTE Interpretation Summary ([facility], Dr. Dunlap): Normal LV chamber size with mild concentric LVH. Normal LV systolic function, ejection fraction 55 to 60%. No segmental left ventricular wall motion abnormalities. No significant valvular pathology. Mild left atrial enlargement. Review of Systems Review of Systems: Complete Review of Systems is as stated above, negative, or noncontributory. Physical Exam Physical Exam: General: A&Ox3. NAD. Obese. HENT: Normocephalic. Atraumatic. Eyes: PER. Conjunctiva pink, sclera clear. Neck: No carotid bruits. No JVD. No HJR. Heart: Irregularly irregular in the 80's. No murmur appreciated. Lungs: Clear to auscultation. Abdomen: +BS. Soft. Nontender. No masses or organomegaly. Extremities: Minimal right greater than left lower extremity edema. Multiple excoriations. No overt cellulitis. No clubbing. No cyanosis. Limited neurological examination is without focal deficits. Pulses: radial=2/4, posterior tibial=2/4. Results & Data ([facility]) Vital Signs (Past 12 Hours) Vital Signs Temp Pulse Resp BP Pulse Ox 11/15/21 06:45 36.6 C 75 18 113/71 92 11/15/21 02:42 36.8 C 78 18 106/72 91 11/14/21 22:37 36.6 C 87 18 98/66 L 94 Laboratory Results Laboratory Results - last 24 hr 11/14/21 11/15/21 11/15/21 11:17 05:46 05:46 WBC 7.46 RBC 5.05 Hgb 9.0 L Hct 29.1 L MCV 57.6 L MCH 17.8 L MCHC 30.9 L RDW Std Deviation 34.1 L RDW Coeff of Fredrick 16.4 H Plt Count 614 H MPV 8.6 Absolute Nucleated RBC 0.02 H Nucleated RBC % (auto) 0.3 Sodium 135 L 133 L Potassium 4.0 3.9 Chloride 96 L 97 L Carbon Dioxide 30 29 Anion Gap 9 7 BUN 13 12 Creatinine 0.90 0.90 Est Cr Clr Drug Dosing 86.6 86.8 Est GFR ( Amer) 81.1 81.1 Est GFR (Non-Af Amer) 70.0 70.0 BUN/Creatinine Ratio 14.4 13.3 Glucose 89 86 Calcium 9.1 8.7 Magnesium 2.0
[2021-11-15] MEDS: traMADol HCL 50 MG TABLET PO PRN ×2 (09:40→20:20)
[2021-11-15] MEDS: dilTIAZem HCL 125 MG in DEXTROSE 5% 100 ML IV SCH (09:41)
--- NOTE | 2021-11-15 14:54 | Electrocardiogram Report ---
Test Reason : Blood Pressure : / mmHG Vent. Rate : 085 BPM Atrial Rate : 441 BPM P-R Int : 000 ms QRS Dur : 086 ms QT Int : 370 ms P-R-T Axes : 000 064 043 degrees QTc Int : 440 ms Atrial fibrillation Low voltage QRS Nonspecific T wave abnormality Abnormal ECG When compared with ECG of 14-NOV-2021 05:38, Nonspecific T wave abnormality no longer evident in Lateral leads Confirmed by Mingo Tucker ([id number]) on 11/15/2021 2:53:47 PM Referred By: REFERRED SELF Confirmed By:Ruben Tucker
--- NOTE | 2021-11-15 19:31 | Hospitalist Progress Note ---
Date of Service November 15, 2021 Assessment & Plan (1) Atrial fibrillation with RVR: Plan: Seems to have history of longstanding persistent atrial fibrillation: Rate control on IV cardizem drip Cardiology on board Metoprolol increased to 100mg BID Digoxin and Amiodarone discontinued ECHO showed no LV wall motion abnormality with EF 55-60% Plan to discontinue cardizem drip IV heparin drip was discontinued due to drop on hemoglobin No anticoagulation (risks greater than the benefit) patient refused any anticoagulant as well Continue monitor in tele UTI Urine cx grew gram negative bacilli- Klebsiella Resistant to Rocephin Will change abx to Ertapenem Anemia Baseline Hgb btw 8 to 9, Hgb 9 today Last colonoscopy was on 08/17- normal. GI recommended 10 yrs follow IV heparin drip discontinued because hgb dropped to 7.3 Continue monitor CBC Depression Anxiety Dipolar disorder Denies any suicide ideation Psych consulted - recommended to continue home psych meds 1 to 1 observation discontinued Hypothyroidism TSH 22 Levothyroxine increased to 50mcg Check TSH in 4 to 6 weeks B/L LE edema Doppler of LE extremity showed no DVT Continue Lasix 40mg BID Hx of PE Pt was on coumadin several years ago Not on any anticoagulant currently Vergara's esophagus Continue omeprazole. Hyperlipidemia: Continue statin. Morbid obesity BMI 51.8 Counseling on weight loss Sleep apnea: Not on any CPAP DVT px IV heparin drip discontinue due to hgb dropped to 7.3 SCD for now Admission and Anticipated Discharge Date Admission Date: November 13, 2021 Subjective Pt was seen and examined for follow of afib Lying in bed with no acute distress resting comfortable in bed She said that she sat in the wheelchair for therapy today She is interested to go to rehab Denies any chest pain, palpitation, dizziness and SOB Review of Systems Review of Systems: All systems reviewed & are unremarkable except as noted in Subjective Physical Exam Physical Exam: General- No acute distress Head- atraumatic Eyes- PERRL, EOMI, ENT- oropharynx clear Neck- supple, no JVD Lungs- clear to auscultation Heart- irregular rhythm; no murmur Abdomen- normal bowel sounds, soft, nontender Extremities- no calf tenderness, +edema Neuro- alert, oriented x 3; PERRL, EOMI; no facial palsy; no dysarthria Skin- warm & dry Results & Data Results & Data ([facility]) Vital Signs (Past 12 Hours) Vital Signs Temp Pulse Resp BP Pulse Ox 11/15/21 15:46 36.7 C 100 H 20 118/72 99 11/15/21 11:22 36.4 C L 92 H 16 119/71 92
[2021-11-15] MEDS: ZOLPIDEM TARTRATE 5 MG TAB PO SCH (20:20)
[2021-11-15] MEDS: CYCLOBENZAPRINE HCL 10 MG TAB PO PRN (20:21)
[2021-11-15] MEDS: ATORVASTATIN 10 MG TAB PO SCH (20:22)
[2021-11-15] MEDS: DIGOXIN 0.125 MG TAB PO SCH (20:22)
[2021-11-15] MEDS: METOPROLOL SUCC 50MG EXT REL TAB PO SCH (20:23)
[2021-11-15] MEDS: rOPINIRole HCL 0.25 MG TABLET PO SCH (20:24)
[2021-11-15] MEDS ORDERED: traMADol HCL 50 MG TABLET PO STA (22:44)
[2021-11-15] MEDS ORDERED: MoRPHine SULFATE 2 MG/ML CARP ONE (23:32)
[2021-11-16] MEDS: ACETAMINOPHEN 325 MG TAB PO PRN (06:16)
[2021-11-16] MEDS: MoRPHine SULFATE 2 MG/ML CARP IV PRN ×3 (06:16→20:10)
[2021-11-16] MEDS: LEVOTHYROXINE SODIUM 50 MCG TABLET PO SCH (06:17)
[2021-11-16] MEDS: PANTOprazole 40 MG TAB PO SCH (07:35)
[2021-11-16] MEDS: ASPIRIN 81 MG ECTAB PO SCH (07:36)
[2021-11-16] MEDS: DULoxetine HCL 60 MG CAP PO SCH ×2 (07:36→20:12)
[2021-11-16] MEDS: busPIRone 15 MG TAB PO SCH ×2 (07:36→20:11)
[2021-11-16] MEDS: TOPIRAMATE 100 MG TAB PO SCH ×2 (07:37→20:13)
[2021-11-16] MEDS: rOPINIRole HCL 1 MG TABLET PO SCH ×3 (07:37→20:12)
[2021-11-16] MEDS: FUROSEMIDE 40 MG/4 ML VIAL IV SCH (07:37)
[2021-11-16] MEDS: METOPROLOL SUCC 50MG EXT REL TAB PO SCH ×2 (07:37→20:13)
[2021-11-16] MEDS: ERTAPENEM SODIUM 1,000 MG in SYRINGE 0 ML IV SCH (08:19)
[2021-11-16 08:40] LABS: BUN Creatinine Ratio 15.1 (10-20); Calcium 8.9 mg/dl (8.5-10.1); Creatinine Clr Calc Pharmacy 105.2 ml/min; Est GFR (African American) 104.5 ml/min; Est GFR (Non-African American) 90.1 ml/min
[2021-11-16 08:47] LABS: Codeine Urine NEGATIVE ng/mL (<50); Hydrocodone Urine NEGATIVE ng/mL (<50); Hydromor Urine NEGATIVE ng/mL (<50); Morphine Urine 362 ng/mL (<50); Norhydrocodone Conf Ur NEGATIVE ng/mL (<50); Noroxycodone Urine NEGATIVE ng/mL (<50); Oxycodone Urine NEGATIVE ng/mL (<50); Oxymorph Urine NEGATIVE ng/mL (<50)
--- NOTE | 2021-11-16 10:17 | Cardiology Progress Note ---
Date of Service November 16, 2021 Assessment & Plan (1) Atrial fibrillation with RVR: (2) Right heart failure, unspecified: (3) Thalassemia: (4) HTN (hypertension): (5) Peripheral edema: Plan: 1. Atrial fibrillation. Asymptomatic. Duration unknown, likely longstanding persistent. Heart rates improved. 2. Volume overload. Appears multifactorial in etiology - cellulitis, diastolic heart failure, anemia, hypothyroidism. Improved. 3. Hypertension. Well controlled. 4. Anemia. Iron deficiency. History of thalassemia. Recommendations: Continue metoprolol succinate at 100 mg twice a day and digoxin 125 mcg/day. Reduce/discontinue digoxin if significant bradycardia observed. No anticoagulation (risks greater than the benefit, patient request). Note: Amiodarone and diltiazem discontinued this admission. Transition to oral diuretic therapy DVT prophylaxis as per hospitalist Admission and Anticipated Discharge Date Admission Date: November 13, 2021 Supervising Physician Co-Signing Physician Notes Patient seen and examined with Nghia Jorgensen PA-C. Agree with findings and assessment as above. Medication changes as above. Continue to monitor on tele. Echo unremarkable. Diltiazem drip will be discontinued. Metoprolol succinate 100 mg p.o. twice daily. Continue digoxin. Not an anticoagulation candidate. Amiodarone discontinued due to chronic A. fib and the risk of embolization. Subjective Patient seen and examined. Chart, medications, and telemetry reviewed. Complaints voiced include right hip/buttocks pain aided only by morphine and mild nausea. I's/O's negative 7,746 mL's overall Telemetry: Atrial fibrillation in the 80's. November 13, 2021 TTE Interpretation Summary ([facility], Dr. Dunlap): Normal LV chamber size with mild concentric LVH. Normal LV systolic function, ejection fraction 55 to 60%. No segmental left ventricular wall motion abnormalities. No significant valvular pathology. Mild left atrial enlargement. Review of Systems Review of Systems: Complete Review of Systems is as stated above, negative, or noncontributory. Physical Exam Physical Exam: General: A&Ox3. NAD. Obese. HENT: Normocephalic. Atraumatic. Eyes: PER. Conjunctiva pink, sclera clear. Neck: No carotid bruits. No JVD. No HJR. Heart: Irregularly irregular in the 80's. No murmur appreciated. Lungs: Clear to auscultation. Abdomen: +BS. Soft. Nontender. No masses or organomegaly. Extremities: Minimal right greater than left lower extremity edema. Multiple e xcoriations. No overt cellulitis. No clubbing. No cyanosis. Limited neurological examination is without focal deficits. Pulses: radial=2/4, posterior tibial=2/4. Results & Data ([facility]) Vital Signs (Past 12 Hours) Vital Signs Temp Pulse Resp BP Pulse Ox 11/16/21 09:30 36.3 C L 77 19 105/69 93 11/16/21 04:20 36.7 C 84 18 108/68 92 11/15/21 23:07 36.8 C 100 H 16 122/84 97 Laboratory Results Laboratory Results - last 24 hr 11/12/21 11/16/21 22:38 07:32 Sodium 132 L Potassium 4.0 Chloride 98 Carbon Dioxide 27 Anion Gap 7 BUN 11 Creatinine 0.73 Est Cr Clr Drug Dosing 105.2 Est GFR ( Amer) 104.5 Est GFR (Non-Af Amer) 90.1 BUN/Creatinine Ratio 15.1 Glucose 92 Calcium 8.9 U Codeine Confrm GC/MS NEGATIVE Ur Morphine (GC/MS) 362 H Ur Hydrocodone (GC/MS) NEGATIVE Ur Norhydrocodone NEGATIVE Ur Noroxycodone NEGATIVE Urine Oxycodone (GC/MS) NEGATIVE U Oxymorphone GC/MS NEGATIVE Ur Hydromorphone (GC/MS) NEGATIVE Drug Screen Comment SEE NOTE
[2021-11-16] MEDS: traMADol HCL 50 MG TABLET PO PRN ×2 (17:43→23:16)
[2021-11-16] MEDS: FUROSEMIDE 40 MG TAB PO SCH (17:44)
[2021-11-16] MEDS: ZOLPIDEM TARTRATE 5 MG TAB PO SCH (20:11)
[2021-11-16] MEDS: ATORVASTATIN 10 MG TAB PO SCH (20:11)
[2021-11-16] MEDS: DIGOXIN 0.125 MG TAB PO SCH (20:11)
[2021-11-16] MEDS: rOPINIRole HCL 0.25 MG TABLET PO SCH (20:13)
--- NOTE | 2021-11-17 01:34 | Hospitalist Progress Note ---
Date of Service November 17, 2021 Assessment & Plan (1) Atrial fibrillation with RVR: Plan: Seems to have history of longstanding persistent atrial fibrillation: Rate control on IV cardizem drip Cardiology on board Metoprolol increased to 100mg BID Digoxin and Amiodarone discontinued ECHO showed no LV wall motion abnormality with EF 55-60% Plan to discontinue cardizem drip IV heparin drip was discontinued due to drop on hemoglobin No anticoagulation (risks greater than the benefit) patient refused any anticoagulant as well Continue monitor in tele UTI Urine cx grew gram negative bacilli- Klebsiella Resistant to Rocephin Continue Ertapenem Denied any urinary symptoms Anemia Baseline Hgb btw 8 to 9, Hgb 9 today Last colonoscopy was on 08/17- normal. GI recommended 10 yrs follow IV heparin drip discontinued because hgb dropped to 7.3 Continue monitor CBC Depression Anxiety Dipolar disorder Denies any suicide ideation Psych consulted - recommended to continue home psych meds 1 to 1 observation discontinued Hypothyroidism TSH 22 Levothyroxine increased to 50mcg Check TSH in 4 to 6 weeks B/L LE edema Doppler of LE extremity showed no DVT Continue Lasix 40mg BID Hx of PE Pt was on coumadin several years ago Not on any anticoagulant currently Vergara's esophagus Continue omeprazole. Hyperlipidemia: Continue statin. Morbid obesity BMI 51.8 Counseling on weight loss Sleep apnea: Not on any CPAP DVT px IV heparin drip discontinue due to hgb dropped to 7.3 SCD for now ( pt does not want to try the subq heparin) Admission and Anticipated Discharge Date Admission Date: November 13, 2021 Subjective Pt was seen and examined for follow of afib Lying in bed with no acute distress resting comfortable in bed Denies any chest pain, palpitation, dizziness and SOB Review of Systems Review of Systems: All systems reviewed & are unremarkable except as noted in Subjective Physical Exam Physical Exam: General- No acute distress Head- atraumatic Eyes- PERRL, EOMI, ENT- oropharynx clear Neck- supple, no JVD Lungs- clear to auscultation Heart- irregular rhythm; no murmur Abdomen- normal bowel sounds, soft, nontender Extremities- no calf tenderness, +edema Neuro- alert, oriented x 3; PERRL, EOMI; no facial palsy; no dysarthria Skin- warm & dry Results & Data Results & Data ([facility]) Vital Signs (Past 12 Hours) Vital Signs Temp Pulse Pulse Resp BP Pulse Ox 11/16/21 22:28 36.9 C 87 18 111/72 92 11/16/21 20:11 99 H 11/16/21 20:00 37.2 C 92 H 17 110/71 97 11/16/21 15:13 36.7 C 73 19 117/71 98
[2021-11-17] MEDS: traMADol HCL 50 MG TABLET PO PRN ×2 (05:10→19:46)
[2021-11-17] MEDS: LEVOTHYROXINE SODIUM 50 MCG TABLET PO SCH (06:09)
[2021-11-17] MEDS: ERTAPENEM SODIUM 1,000 MG in SYRINGE 0 ML IV SCH (08:21)
[2021-11-17] MEDS: MoRPHine SULFATE 2 MG/ML CARP IV PRN ×2 (08:21→22:22)
[2021-11-17] MEDS: DULoxetine HCL 60 MG CAP PO SCH ×2 (08:22→19:56)
[2021-11-17] MEDS: ASPIRIN 81 MG ECTAB PO SCH (08:22)
[2021-11-17] MEDS: busPIRone 15 MG TAB PO SCH ×2 (08:22→19:55)
[2021-11-17] MEDS: METOPROLOL SUCC 50MG EXT REL TAB PO SCH ×2 (08:23→19:56)
[2021-11-17] MEDS: FUROSEMIDE 40 MG TAB PO SCH ×2 (08:23→15:48)
[2021-11-17] MEDS: PANTOprazole 40 MG TAB PO SCH (08:23)
[2021-11-17] MEDS: rOPINIRole HCL 1 MG TABLET PO SCH ×3 (08:24→19:57)
[2021-11-17] MEDS: TOPIRAMATE 100 MG TAB PO SCH ×2 (08:24→19:56)
--- NOTE | 2021-11-17 08:53 | Cardiology Progress Note ---
Date of Service November 17, 2021 Assessment & Plan (1) Atrial fibrillation with RVR: (2) Right heart failure, unspecified: (3) Thalassemia: (4) HTN (hypertension): (5) Peripheral edema: Plan: 1. Atrial fibrillation. Asymptomatic. Duration unknown, likely longstanding persistent. Heart rates controlled on metoprolol and digoxin. 2. Volume overload, multifactorial in etiology - cellulitis, diastolic heart failure, anemia, hypothyroidism. Compensated. 3. Hypertension. Controlled. 4. Anemia. Iron deficiency. History of thalassemia. Recommendations: Continue metoprolol succinate at 100 mg twice a day and digoxin 125 mcg/day. No anticoagulation (risks greater than the benefit, patient request). Patient transitioned to oral diuretic therapy this morning. Amiodarone and diltiazem discontinued this admission. DVT prophylaxis as per hospitalist Outpatient cardiology follow-up being arranged. Please contact with any further questions or concerns. Admission and Anticipated Discharge Date Admission Date: November 13, 2021 Supervising Physician Co-Signing Physician Notes Patient seen and examined with Nghia Jorgensen PA-C. Agree with findings and assessment as above. Medication changes as above. Okay to discharge from cardiac standpoint. Subjective Patient seen and examined. Chart, medications, and telemetry reviewed. No chest pain, palpitations, dyspnea, or increased fluid retention. I's/O's negative 7,762 mL's overall Telemetry: Atrial fibrillation in the 80's and 90's. November 13, 2021 TTE Interpretation Summary ([facility], Dr. Dunlap): Normal LV chamber size with mild concentric LVH. Normal LV systolic function, ejection fraction 55 to 60%. No segmental left ventricular wall motion abnormalities. No significant valvular pathology. Mild left atrial enlargement. Review of Systems Review of Systems: Complete Review of Systems is as stated above, negative, or noncontributory. Physical Exam Physical Exam: General: A&Ox3. NAD. Obese. HENT: Normocephalic. Atraumatic. Eyes: PER. Conjunctiva pink, sclera clear. Neck: No carotid bruits. No JVD. No HJR. Heart: Irregularly irregular in the 80's. No murmur appreciated. Lungs: Clear to auscultation. Abdomen: +BS. Soft. Nontender. No masses or organomegaly. Extremities: Trivial pretibial edema. Multiple excoriations. No overt cellulitis. No clubbing. No cyanosis. Limited neurological examination is without focal deficits. Pulses: radial=2/4, posterior tibial=2/4. Results & Data ([facility]) Vital Signs (Past 12 Hours) Vital Signs Temp Pulse Resp BP Pulse Ox 11/17/21 07:38 36.8 C 92 H 18 136/90 93 11/17/21 04:20 37.6 C H 87 18 111/74 93 11/16/21 22:28 36.9 C 87 18 111/72 92
[2021-11-17 10:03] LABS: BUN Creatinine Ratio 17.8 (10-20); Calcium 8.9 mg/dl (8.5-10.1); Creatinine Clr Calc Pharmacy 104.4 ml/min; Est GFR (African American) 104.5 ml/min; Est GFR (Non-African American) 90.1 ml/min; Potassium 4.1 mmol/L (3.5-5.1)
[2021-11-17] MEDS: POLYETHYLENE (MIRALAX) 17 GM PACK PO PRN (11:39)
[2021-11-17] MEDS: ACETAMINOPHEN 325 MG TAB PO PRN (11:39)
--- NOTE | 2021-11-17 18:36 | Hospitalist Progress Note ---
Date of Service November 17, 2021 Assessment & Plan (1) Atrial fibrillation with RVR: Plan: Seems to have history of longstanding persistent atrial fibrillation: Rate control Cardiology on board Amiodarone and cardizem discontinued ECHO showed no LV wall motion abnormality with EF 55-60% Plan to discontinue cardizem drip IV heparin drip was discontinued due to drop on hemoglobin No anticoagulation (risks greater than the benefit) patient refused any anticoagulant as well Continue metoprolol 100mg BID and digoxin 125mcg Continue monitor in tele UTI Urine cx grew gram negative bacilli- Klebsiella Resistant to Rocephin Continue Ertapenem Denied any urinary symptoms Anemia Baseline Hgb btw 8 to 9, Hgb 9 today Last colonoscopy was on 08/17- normal. GI recommended 10 yrs follow IV heparin drip discontinued because hgb dropped to 7.3 Continue monitor CBC Depression Anxiety Dipolar disorder Denies any suicide ideation Psych consulted - recommended to continue home psych meds 1 to 1 observation discontinued Hypothyroidism TSH 22 Levothyroxine increased to 50mcg Check TSH in 4 to 6 weeks B/L LE edema Doppler of LE extremity showed no DVT Continue Lasix 40mg BID Hx of PE Pt was on coumadin several years ago Not on any anticoagulant currently Vergara's esophagus Continue omeprazole. Hyperlipidemia: Continue statin. Morbid obesity BMI 51.8 Counseling on weight loss Sleep apnea: Not on any CPAP DVT px IV heparin drip discontinue due to hgb dropped to 7.3 SCD for now ( pt does not want the subq heparin) Admission and Anticipated Discharge Date Admission Date: November 13, 2021 Subjective Pt was seen and examined for follow of Afib Lying in bed with no acute distress She said that she slept well Denies any chest pain, palpitation, dizziness and SOB Review of Systems Review of Systems: All systems reviewed & are unremarkable except as noted in Subjective Physical Exam Physical Exam: General- No acute distress Head- atraumatic Eyes- PERRL, EOMI, ENT- oropharynx clear Neck- supple, no JVD Lungs- clear to auscultation Heart- irregular rhythm; no murmur Abdomen- normal bowel sounds, soft, nontender Extremities- no calf tenderness, +edema Neuro- alert, oriented x 3; PERRL, EOMI; no facial palsy; no dysarthria Skin- warm & dry Results & Data Results & Data ([facility]) Vital Signs (Past 12 Hours) Vital Signs Temp Pulse Resp BP Pulse Ox 11/17/21 16:01 36.9 C 99 H 16 118/76 95 11/17/21 11:42 37.3 C 90 15 93/70 L 94 11/17/21 07:38 36.8 C 92 H 18 136/90 93
[2021-11-17] MEDS: DIGOXIN 0.125 MG TAB PO SCH (19:55)
[2021-11-17] MEDS: ATORVASTATIN 10 MG TAB PO SCH (19:55)
[2021-11-17] MEDS: rOPINIRole HCL 0.25 MG TABLET PO SCH (19:57)
[2021-11-17] MEDS: ZOLPIDEM TARTRATE 5 MG TAB PO SCH (19:59)
[2021-11-18] MEDS: LEVOTHYROXINE SODIUM 50 MCG TABLET PO SCH (06:05)
[2021-11-18] MEDS: TOPIRAMATE 100 MG TAB PO SCH ×2 (07:56→19:52)
[2021-11-18] MEDS: DULoxetine HCL 60 MG CAP PO SCH ×2 (07:56→19:52)
[2021-11-18] MEDS: METOPROLOL SUCC 50MG EXT REL TAB PO SCH ×2 (07:56→19:54)
[2021-11-18] MEDS: rOPINIRole HCL 1 MG TABLET PO SCH ×3 (07:56→19:53)
[2021-11-18] MEDS: ASPIRIN 81 MG ECTAB PO SCH (07:57)
[2021-11-18] MEDS: PANTOprazole 40 MG TAB PO SCH (07:57)
[2021-11-18] MEDS: FUROSEMIDE 40 MG TAB PO SCH ×2 (07:57→17:02)
[2021-11-18] MEDS: busPIRone 15 MG TAB PO SCH ×2 (07:57→19:54)
[2021-11-18] MEDS: ERTAPENEM SODIUM 1,000 MG in SYRINGE 0 ML IV SCH (08:02)
[2021-11-18] MEDS: traMADol HCL 50 MG TABLET PO PRN ×2 (08:07→19:51)
[2021-11-18] MEDS: POLYETHYLENE (MIRALAX) 17 GM PACK PO PRN (09:03)
[2021-11-18] MEDS: MoRPHine SULFATE 2 MG/ML CARP IV PRN ×3 (09:03→21:00)
[2021-11-18] MEDS: ACETAMINOPHEN 325 MG TAB PO PRN (13:23)
[2021-11-18] MEDS: ZOLPIDEM TARTRATE 5 MG TAB PO SCH (19:51)
[2021-11-18] MEDS: rOPINIRole HCL 0.25 MG TABLET PO SCH (19:52)
[2021-11-18] MEDS: ATORVASTATIN 10 MG TAB PO SCH (19:53)
[2021-11-18] MEDS: DIGOXIN 0.125 MG TAB PO SCH (19:53)
--- NOTE | 2021-11-18 23:55 | Hospitalist Progress Note ---
Date of Service November 18, 2021 Assessment & Plan (1) Atrial fibrillation with RVR: Plan: Seems to have history of longstanding persistent atrial fibrillation: Rate control Cardiology on board Amiodarone and cardizem discontinued ECHO showed no LV wall motion abnormality with EF 55-60% Plan to discontinue cardizem drip IV heparin drip was discontinued due to drop on hemoglobin No anticoagulation (risks greater than the benefit) patient refused any anticoagulant as well Continue metoprolol 100mg BID and digoxin 125mcg Continue monitor in tele UTI Urine cx grew gram negative bacilli- Klebsiella Resistant to Rocephin Continue Ertapenem Denied any urinary symptoms Anemia Baseline Hgb btw 8 to 9, Hgb 9 today Last colonoscopy was on 08/17- normal. GI recommended 10 yrs follow IV heparin drip discontinued because hgb dropped to 7.3 Continue monitor CBC Depression Anxiety Dipolar disorder Denies any suicide ideation Psych consulted - recommended to continue home psych meds 1 to 1 observation discontinued Stable Hypothyroidism TSH 22 Levothyroxine increased to 50mcg Check TSH in 4 to 6 weeks B/L LE edema Doppler of LE extremity showed no DVT Continue Lasix 40mg BID Hx of PE Pt was on coumadin several years ago Not on any anticoagulant currently Vergara's esophagus Continue omeprazole. Hyperlipidemia: Continue statin. Morbid obesity BMI 51.8 Counseling on weight loss Sleep apnea: Not on any CPAP DVT px IV heparin drip discontinue due to hgb dropped to 7.3 SCD for now ( pt does not want the subq heparin) Admission and Anticipated Discharge Date Admission Date: November 13, 2021 Subjective Pt was seen and examined for follow of Afib Lying in bed with no acute distress She said that she did not sleep last night She said that she takes the extended release ambien at home and seems to work best Denies any chest pain, palpitation, dizziness and SOB Review of Systems Review of Systems: All systems reviewed & are unremarkable except as noted in Subjective Physical Exam Physical Exam: General- No acute distress Head- atraumatic Eyes- PERRL, EOMI, ENT- oropharynx clear Neck- supple, no JVD Lungs- clear to auscultation Heart- irregular rhythm; no murmur Abdomen- normal bowel sounds, soft, nontender Extremities- no calf tenderness, +edema Neuro- alert, oriented x 3; PERRL, EOMI; no facial palsy; no dysarthria Skin- warm & dry Results & Data Results & Data ([facility]) Vital Signs (Past 12 Hours) Vital Signs Temp Pulse Pulse Resp BP Pulse Ox 11/18/21 19:53 80 11/18/21 19:48 36.7 C 80 20 116/77 98 11/18/21 15:22 36.6 C 79 18 116/79 96
[2021-11-19] MEDS: ACETAMINOPHEN 325 MG TAB PO PRN ×2 (01:31→13:35)
[2021-11-19] MEDS: MoRPHine SULFATE 2 MG/ML CARP IV PRN ×2 (03:40→10:34)
[2021-11-19] MEDS: LEVOTHYROXINE SODIUM 50 MCG TABLET PO SCH (05:43)
[2021-11-19] MEDS: busPIRone 15 MG TAB PO SCH ×2 (07:26→20:31)
[2021-11-19] MEDS: METOPROLOL SUCC 50MG EXT REL TAB PO SCH ×2 (07:26→20:32)
[2021-11-19] MEDS: TOPIRAMATE 100 MG TAB PO SCH ×2 (07:27→20:34)
[2021-11-19] MEDS: DULoxetine HCL 60 MG CAP PO SCH ×2 (07:27→20:32)
[2021-11-19] MEDS: rOPINIRole HCL 1 MG TABLET PO SCH ×3 (07:27→20:33)
[2021-11-19] MEDS: FUROSEMIDE 40 MG TAB PO SCH ×2 (07:27→16:54)
[2021-11-19] MEDS: PANTOprazole 40 MG TAB PO SCH (07:27)
[2021-11-19] MEDS: ASPIRIN 81 MG ECTAB PO SCH (07:27)
[2021-11-19] MEDS: ERTAPENEM SODIUM 1,000 MG in SYRINGE 0 ML IV SCH (07:28)
[2021-11-19 10:12] LABS: BUN Creatinine Ratio 19.7 (10-20); Creatinine Clr Calc Pharmacy 100.3 ml/min; Est GFR (African American) 99.5 ml/min; Est GFR (Non-African American) 85.9 ml/min
[2021-11-19] MEDS: traMADol HCL 50 MG TABLET PO PRN ×2 (15:17→20:31)
[2021-11-19] MEDS: ATORVASTATIN 10 MG TAB PO SCH (20:31)
[2021-11-19] MEDS: DOCUSATE SODIUM 100 MG CAP PO SCH (20:32)
[2021-11-19] MEDS: rOPINIRole HCL 0.25 MG TABLET PO SCH (20:33)
[2021-11-19] MEDS: DIGOXIN 0.125 MG TAB PO SCH (20:33)
[2021-11-19] MEDS: ZOLPIDEM TARTRATE 5 MG TAB PO SCH (21:48)
[2021-11-19] MEDS: oxyCODONE HCL IR 5 MG TAB (IMMEDIATE RELEASE) PO PRN (22:02)
[2021-11-19] MEDS: ZOLPIDEM TARTRATE 10 MG TAB PO SCH (22:02)
--- NOTE | 2021-11-19 23:40 | Hospitalist Progress Note ---
Date of Service November 19, 2021 Assessment & Plan (1) Atrial fibrillation with RVR: Plan: Seems to have history of longstanding persistent atrial fibrillation: Rate control Cardiology on board Amiodarone and cardizem discontinued ECHO showed no LV wall motion abnormality with EF 55-60% Plan to discontinue cardizem drip IV heparin drip was discontinued due to drop on hemoglobin No anticoagulation (risks greater than the benefit) patient refused any anticoagulant as well Continue metoprolol 100mg BID and digoxin 125mcg Continue monitor in tele UTI Urine cx grew gram negative bacilli- Klebsiella Resistant to Rocephin Continue Ertapenem Denied any urinary symptoms Anemia Baseline Hgb btw 8 to 9, Hgb 9 today Last colonoscopy was on 08/17- normal. GI recommended 10 yrs follow IV heparin drip discontinued because hgb dropped to 7.3 Continue monitor CBC Depression Anxiety Dipolar disorder Denies any suicide ideation Psych consulted - recommended to continue home psych meds 1 to 1 observation discontinued Stable Hypothyroidism TSH 22 Levothyroxine increased to 50mcg Check TSH in 4 to 6 weeks B/L LE edema Doppler of LE extremity showed no DVT Continue Lasix 40mg BID Hx of PE Pt was on coumadin several years ago Not on any anticoagulant currently Vergara's esophagus Continue omeprazole. Hyperlipidemia: Continue statin. Morbid obesity BMI 51.8 Counseling on weight loss Sleep apnea: Not on any CPAP DVT px IV heparin drip discontinue due to hgb dropped to 7.3 SCD for now ( pt does not want the subq heparin) Admission and Anticipated Discharge Date Admission Date: November 13, 2021 Subjective Pt was seen and examined for follow of Afib Lying in bed with no acute distress She said that she did not sleep last night Denies any chest pain, palpitation, dizziness and SOB Review of Systems Review of Systems: All systems reviewed & are unremarkable except as noted in Subjective Physical Exam Physical Exam: General- No acute distress Head- atraumatic Eyes- PERRL, EOMI, ENT- oropharynx clear Neck- supple, no JVD Lungs- clear to auscultation Heart- irregular rhythm; no murmur Abdomen- normal bowel sounds, soft, nontender Extremities- no calf tenderness, +edema Neuro- alert, oriented x 3; PERRL, EOMI; no facial palsy; no dysarthria Skin- warm & dry Results & Data Results & Data ([facility]) Vital Signs (Past 12 Hours) Vital Signs Temp Pulse Pulse Resp BP Pulse Ox 11/19/21 22:26 37.1 C 88 24 102/65 97 11/19/21 20:33 78 11/19/21 15:29 36.3 C L 71 22 123/57 L 94
[2021-11-20] MEDS: oxyCODONE HCL IR 5 MG TAB (IMMEDIATE RELEASE) PO PRN ×3 (04:59→17:13)
[2021-11-20] MEDS: LEVOTHYROXINE SODIUM 50 MCG TABLET PO SCH (05:00)
[2021-11-20] MEDS: CYCLOBENZAPRINE HCL 10 MG TAB PO PRN ×2 (06:26→20:03)
[2021-11-20] MEDS: rOPINIRole HCL 1 MG TABLET PO SCH ×3 (07:34→21:14)
[2021-11-20] MEDS: FUROSEMIDE 40 MG TAB PO SCH ×2 (07:34→17:14)
[2021-11-20] MEDS: busPIRone 15 MG TAB PO SCH ×2 (07:34→21:17)
[2021-11-20] MEDS: TOPIRAMATE 100 MG TAB PO SCH ×2 (07:34→21:17)
[2021-11-20] MEDS: METOPROLOL SUCC 50MG EXT REL TAB PO SCH ×2 (07:34→21:17)
[2021-11-20] MEDS: DULoxetine HCL 60 MG CAP PO SCH ×2 (07:34→21:16)
[2021-11-20] MEDS: ASPIRIN 81 MG ECTAB PO SCH (07:36)
[2021-11-20] MEDS: PANTOprazole 40 MG TAB PO SCH (07:36)
[2021-11-20] MEDS: DOCUSATE SODIUM 100 MG CAP PO SCH ×2 (07:37→21:17)
[2021-11-20] MEDS: traMADol HCL 50 MG TABLET PO PRN ×2 (07:44→20:02)
[2021-11-20] MEDS: ACETAMINOPHEN 325 MG TAB PO PRN ×2 (07:45→17:17)
[2021-11-20 08:37] LABS: BUN Creatinine Ratio 25.4 (10-20); Calcium 9.4 mg/dl (8.5-10.1); Creatinine Clr Calc Pharmacy 107.3 ml/min; Est GFR (African American) 108.1 ml/min; Est GFR (Non-African American) 93.2 ml/min; Potassium 4.2 mmol/L (3.5-5.1)
[2021-11-20] MEDS: rOPINIRole HCL 0.25 MG TABLET PO SCH (21:14)
[2021-11-20] MEDS: DIGOXIN 0.125 MG TAB PO SCH (21:15)
[2021-11-20] MEDS: ATORVASTATIN 10 MG TAB PO SCH (21:15)
--- NOTE | 2021-11-20 21:56 | Hospitalist Progress Note ---
Date of Service November 20, 2021 Assessment & Plan (1) Atrial fibrillation with RVR: Plan: Seems to have history of longstanding persistent atrial fibrillation: Rate control Cardiology on board Amiodarone and cardizem discontinued ECHO showed no LV wall motion abnormality with EF 55-60% Plan to discontinue cardizem drip IV heparin drip was discontinued due to drop on hemoglobin No anticoagulation (risks greater than the benefit) patient refused any anticoagulant as well Continue metoprolol 100mg BID and digoxin 125mcg Continue monitor in tele UTI Urine cx grew gram negative bacilli- Klebsiella Resistant to Rocephin Continue Ertapenem Denied any urinary symptoms Anemia Baseline Hgb btw 8 to 9, Hgb 9 today Last colonoscopy was on 08/17- normal. GI recommended 10 yrs follow IV heparin drip discontinued because hgb dropped to 7.3 Continue monitor CBC Depression Anxiety Dipolar disorder Denies any suicide ideation Psych consulted - recommended to continue home psych meds 1 to 1 observation discontinued Stable Hypothyroidism TSH 22 Levothyroxine increased to 50mcg Check TSH in 4 to 6 weeks B/L LE edema Doppler of LE extremity showed no DVT Continue Lasix 40mg BID Hx of PE Pt was on coumadin several years ago Not on any anticoagulant currently Vergara's esophagus Continue omeprazole. Hyperlipidemia: Continue statin. Morbid obesity BMI 51.8 Counseling on weight loss Sleep apnea: Not on any CPAP DVT px IV heparin drip discontinue due to hgb dropped to 7.3 SCD for now ( pt does not want the subq heparin) disposition Waiting for placement Admission and Anticipated Discharge Date Admission Date: November 13, 2021 Subjective Pt was seen and examined for follow of Afib Lying in bed with no acute distress She said that she slept well last night She is compliant of pain around the right hip area She said that she was able to walk to the bathroom in her room with therapy Denies any chest pain, palpitation, dizziness and SOB Review of Systems Review of Systems: All systems reviewed & are unremarkable except as noted in Subjective Physical Exam Physical Exam: General- No acute distress Head- atraumatic Eyes- PERRL, EOMI, ENT- oropharynx clear Neck- supple, no JVD Lungs- clear to auscultation Heart- irregular rhythm; no murmur Abdomen- normal bowel sounds, soft, nontender Extremities- no calf tenderness, +edema Neuro- alert, oriented x 3; PERRL, EOMI; no facial palsy; no dysarthria Skin- warm & dry Results & Data Results & Data ([facility]) Vital Signs (Past 12 Hours) Vital Signs Temp Pulse Pulse Pulse Resp BP Pulse Ox 11/20/21 21:15 78 11/20/21 21:14 79 16 92/59 L 98 11/20/21 15:42 36.6 C 78 17 106/69 96 11/20/21 11:14 36.6 C 73 22 102/70 95
[2021-11-20] MEDS: ZOLPIDEM TARTRATE 10 MG TAB PO SCH (22:06)
[2021-11-21] MEDS: ACETAMINOPHEN 325 MG TAB PO PRN ×3 (03:21→20:27)
[2021-11-21] MEDS: oxyCODONE HCL IR 5 MG TAB (IMMEDIATE RELEASE) PO PRN ×3 (03:21→17:31)
[2021-11-21] MEDS: LEVOTHYROXINE SODIUM 50 MCG TABLET PO SCH (05:40)
[2021-11-21 06:32] LABS: Hematocrit (blood only) 28.1 % (37-47); Hemoglobin 8.9 g/dL (12.0-16.0); Mean Corpuscular Hemoglobin 17.7 pg (25-34); Mean Corpuscular Hgb Conc 31.7 g/dL (32-36); Mean Corpuscular Volume 55.9 fL (80-100); Mean Platelet Volume 9.3 fL (7.4-10.4); Platelet Count 573 K/uL (130-400); RDW Coefficient of Variation 16.8 % (11.5-14.5); RDW Standard Deviation 33.7 fL (36.4-46.3); Red Blood Count 5.03 M/uL (4.2-5.4); White Blood Count 8.21 K/uL (4.8-10.8)
[2021-11-21 06:53] LABS: BUN Creatinine Ratio 35.2 (10-20); Calcium 9.1 mg/dl (8.5-10.1); Creatinine Clr Calc Pharmacy 107.3 ml/min; Est GFR (African American) 108.1 ml/min; Est GFR (Non-African American) 93.2 ml/min; Potassium 4.1 mmol/L (3.5-5.1)
[2021-11-21] MEDS: DULoxetine HCL 60 MG CAP PO SCH ×2 (07:57→20:28)
[2021-11-21] MEDS: PANTOprazole 40 MG TAB PO SCH (07:57)
[2021-11-21] MEDS: TOPIRAMATE 100 MG TAB PO SCH ×2 (07:58→20:28)
[2021-11-21] MEDS: busPIRone 15 MG TAB PO SCH ×2 (07:58→20:28)
[2021-11-21] MEDS: rOPINIRole HCL 1 MG TABLET PO SCH ×3 (07:58→20:27)
[2021-11-21] MEDS: ASPIRIN 81 MG ECTAB PO SCH (07:58)
[2021-11-21] MEDS: FUROSEMIDE 40 MG TAB PO SCH ×2 (07:58→17:27)
[2021-11-21] MEDS: DOCUSATE SODIUM 100 MG CAP PO SCH ×2 (07:58→20:28)
[2021-11-21] MEDS: METOPROLOL SUCC 50MG EXT REL TAB PO SCH ×2 (07:59→20:28)
[2021-11-21] MEDS: LIDOCAINE 5% 1 PATCH TD SCH (08:03)
[2021-11-21] MEDS: traMADol HCL 50 MG TABLET PO PRN ×2 (15:48→20:29)
[2021-11-21] MEDS: POLYETHYLENE (MIRALAX) 17 GM PACK PO PRN (17:31)
[2021-11-21] MEDS: DIGOXIN 0.125 MG TAB PO SCH (20:28)
[2021-11-21] MEDS: rOPINIRole HCL 0.25 MG TABLET PO SCH (20:28)
[2021-11-21] MEDS: ATORVASTATIN 10 MG TAB PO SCH (20:28)
[2021-11-21] MEDS: ZOLPIDEM TARTRATE 10 MG TAB PO SCH (21:58)
--- NOTE | 2021-11-21 23:49 | Hospitalist Progress Note ---
Date of Service November 21, 2021 Assessment & Plan (1) Atrial fibrillation with RVR: Plan: Seems to have history of longstanding persistent atrial fibrillation: Rate control Cardiology on board Amiodarone and cardizem discontinued ECHO showed no LV wall motion abnormality with EF 55-60% Plan to discontinue cardizem drip IV heparin drip was discontinued due to drop on hemoglobin No anticoagulation (risks greater than the benefit) patient refused any anticoagulant as well Continue metoprolol 100mg BID and digoxin 125mcg Continue monitor in tele UTI Urine cx grew gram negative bacilli- Klebsiella Resistant to Rocephin completed the course Ertapenem Denied any urinary symptoms Anemia Baseline Hgb btw 8 to 9, Hgb 8.9 today Last colonoscopy was on 08/17- normal. GI recommended 10 yrs follow IV heparin drip discontinued because hgb dropped to 7.3 stable Hyponatremia Na 129 today Possible related to diuretic If Na continue to drop will hold lasix and consult neurology Continue monitor BMP Depression Anxiety Dipolar disorder Denies any suicide ideation Psych consulted - recommended to continue home psych meds 1 to 1 observation discontinued Stable Hypothyroidism TSH 22 Levothyroxine increased to 50mcg Check TSH in 4 to 6 weeks B/L LE edema Doppler of LE extremity showed no DVT Continue Lasix 40mg BID Hx of PE Pt was on coumadin several years ago Not on any anticoagulant currently Vergara's esophagus Continue omeprazole. Hyperlipidemia: Continue statin. Morbid obesity BMI 51.8 Counseling on weight loss Sleep apnea: Not on any CPAP DVT px IV heparin drip discontinue due to hgb dropped to 7.3 SCD for now ( pt does not want the subq heparin) disposition Waiting for placement Admission and Anticipated Discharge Date Admission Date: November 13, 2021 Subjective Pt was seen and examined for follow of Afib Lying in bed with no acute distress She said that she is having alot of pain in her hip, she is asking to increase the narcotic Denies any chest pain, palpitation, dizziness and SOB Review of Systems Review of Systems: All systems reviewed & are unremarkable except as noted in Subjective Physical Exam Physical Exam: General- No acute distress Head- atraumatic Eyes- PERRL, EOMI, ENT- oropharynx clear Neck- supple, no JVD Lungs- clear to auscultation Heart- irregular rhythm; no murmur Abdomen- normal bowel sounds, soft, nontender Extremities- no calf tenderness, +edema Neuro- alert, oriented x 3; PERRL, EOMI; no facial palsy; no dysarthria Skin- warm & dry Results & Data Results & Data ([facility]) Vital Signs (Past 12 Hours) Vital Signs Temp Pulse Pulse Pulse Resp BP Pulse Ox 11/21/21 21:44 36.5 C 88 18 96/58 L 94 11/21/21 20:34 73 119/73 11/21/21 20:28 73 11/21/21 15:06 36.6 C 79 18 101/68 94
[2021-11-22] MEDS: LEVOTHYROXINE SODIUM 50 MCG TABLET PO SCH (05:59)
[2021-11-22] MEDS: oxyCODONE HCL IR 5 MG TAB (IMMEDIATE RELEASE) PO PRN ×2 (05:59→14:54)
[2021-11-22] MEDS: busPIRone 15 MG TAB PO SCH ×2 (08:00→19:45)
[2021-11-22] MEDS: PANTOprazole 40 MG TAB PO SCH (08:01)
[2021-11-22] MEDS: TOPIRAMATE 100 MG TAB PO SCH ×2 (08:01→19:47)
[2021-11-22] MEDS: DULoxetine HCL 60 MG CAP PO SCH ×2 (08:01→19:44)
[2021-11-22] MEDS: METOPROLOL SUCC 50MG EXT REL TAB PO SCH ×2 (08:01→19:46)
[2021-11-22] MEDS: FUROSEMIDE 40 MG TAB PO SCH (08:01)
[2021-11-22] MEDS: LIDOCAINE 5% 1 PATCH TD SCH (08:02)
[2021-11-22] MEDS: ASPIRIN 81 MG ECTAB PO SCH (08:02)
[2021-11-22] MEDS: DOCUSATE SODIUM 100 MG CAP PO SCH ×2 (08:02→19:47)
[2021-11-22] MEDS: rOPINIRole HCL 1 MG TABLET PO SCH ×3 (08:02→19:46)
[2021-11-22] MEDS: traMADol HCL 50 MG TABLET PO PRN ×2 (08:09→19:44)
[2021-11-22 09:21] LABS: Hematocrit (blood only) 30.5 % (37-47); Hemoglobin 9.5 g/dL (12.0-16.0); Mean Corpuscular Hemoglobin 17.3 pg (25-34); Mean Corpuscular Hgb Conc 31.1 g/dL (32-36); Mean Corpuscular Volume 55.7 fL (80-100); Mean Platelet Volume 9.3 fL (7.4-10.4); Platelet Count 606 K/uL (130-400); RDW Coefficient of Variation 16.8 % (11.5-14.5); RDW Standard Deviation 33.6 fL (36.4-46.3); Red Blood Count 5.48 M/uL (4.2-5.4); White Blood Count 9.49 K/uL (4.8-10.8)
[2021-11-22 09:30] LABS: BUN Creatinine Ratio 36.6 (10-20); Calcium 9.5 mg/dl (8.5-10.1); Creatinine Clr Calc Pharmacy 107.3 ml/min; Est GFR (African American) 108.1 ml/min; Est GFR (Non-African American) 93.2 ml/min; Potassium 4.4 mmol/L (3.5-5.1)
--- NOTE | 2021-11-22 11:28 | Hospitalist Progress Note ---
Date of Service November 22, 2021 Assessment & Plan (1) Atrial fibrillation with RVR: Plan: Seems to have history of longstanding persistent atrial fibrillation: Rate control Cardiology consulted Amiodarone and cardizem discontinued ECHO showed no LV wall motion abnormality with EF 55-60% cardizem drip stopped IV heparin drip was discontinued due to drop on hemoglobin No anticoagulation (risks greater than the benefit) patient refused any anticoagulant as well Continue metoprolol 100mg BID and digoxin 125mcg Cardiology follow up (outpt) arranged UTI Urine cx grew gram negative bacilli- Klebsiella Resistant to Rocephin completed the course Ertapenem Denied any urinary symptoms Anemia Baseline Hgb btw 8 to 9, Hgb 9.5 today Last colonoscopy was on 08/17- normal. GI recommended 10 yrs follow IV heparin drip discontinued because hgb dropped to 7.3 stable Hyponatremia Na 127 today Possible related to diuretic If Na continue to drop will hold lasix and consult nephrology Continue monitor BMP Depression Anxiety Bipolar disorder Denies any suicide ideation Psych consulted - recommended to continue home psych meds 1 to 1 observation discontinued Stable Hypothyroidism TSH 22 Levothyroxine increased to 50mcg Check TSH in 4 to 6 weeks B/L LE edema Doppler of LE extremity showed no DVT Continue Lasix 40mg BID Hx of PE Pt was on coumadin several years ago Not on any anticoagulant currently Vergara's esophagus Continue omeprazole. Hyperlipidemia: Continue statin. Morbid obesity BMI 51.8 Counseling on weight loss Sleep apnea: Not on any CPAP DVT px IV heparin drip discontinue due to hgb dropped to 7.3 SCDs for now ( pt does not want the subq heparin) disposition Waiting for placement Admission and Anticipated Discharge Date Admission Date: November 13, 2021 Subjective Pt was seen in follow of Afib , anxiety Lying in bed in no acute distress Reports pain in her hip (chronic s/p surgery) Denies any chest pain, palpitation, dizziness, shortness of breath Also denies any abdominal pain nausea vomiting Review of Systems Review of Systems: All systems reviewed & are unremarkable except as noted in Subjective Physical Exam Physical Exam: General- No acute distress Head- atraumatic Eyes- PERRL, EOMI, ENT- oropharynx clear Neck- supple, no JVD Lungs- clear to auscultation Heart- irregular rhythm; no murmur Abdomen- normal bowel sounds, soft, nontender Extremities- no calf tenderness, +edema Neuro- alert, oriented x 3; PERRL, EOMI; no facial palsy; no dysarthria Skin- warm & dry Results & Data Results & Data ([facility]) Vital Signs (Past 12 Hours) Vital Signs Temp Pulse Resp BP Pulse Ox 11/22/21 07:17 36.7 C 72 14 113/69 92 Laboratory Results 11/22/21 11/22/21 Range/Units 08:31 08:31 WBC 9.49 (4.8-10.8) K/uL RBC 5.48 H (4.2-5.4) M/uL Hgb 9.5 L (12.0-16.0) g/dL Hct 30.5 L (37-47) % MCV 55.7 L (80-100) fL MCH 17.3 L (25-34) pg MCHC 31.1 L (32-36) g/dL RDW Std Deviation 33.6 L (36.4-46.3) fL RDW Coeff of Fredrick 16.8 H (11.5-14.5) % Plt Count 606 H (130-400) K/uL MPV 9.3 (7.4-10.4) fL Sodium 127 L (136-145) mmol/L Potassium 4.4 (3.5-5.1) mmol/L Chloride 93 L (98-107) mmol/L Carbon Dioxide 26 (21-32) mmol/L Anion Gap 8 (3-11) BUN 26 H (6-23) mg/dl Creatinine 0.71 (0.6-1.2) mg/dl Est Cr Clr Drug Dosing 107.3 ml/min Est GFR ( Amer) 108.1 ml/min Est GFR (Non-Af Amer) 93.2 ml/min BUN/Creatinine Ratio 36.6 H (10-20) Glucose 99 (70-99(Fasting)) mg/dl Calcium 9.5 (8.5-10.1) mg/dl Medications Administered Current Inpatient Medications Acetaminophen (Acetaminophen 325 Mg Tab) 650 mg PO Q4H PRN PRN Reason: Pain or Fever Stop: 12/13/21 05:33 Last Admin: 11/21/21 20:27 Dose: 650 mg Documented by: Aspirin (Aspirin 81 Mg Ectab) 81 mg PO [facility] Stop: 12/13/21 08:59 Last Admin: 11/22/21 08:02 Dose: 81 mg Documented by: Atorvastatin Calcium (Atorvastatin 10 Mg Tab) 10 mg PO HS [facility] Stop: 12/13/21 20:59 Last Admin: 11/21/21 20:28 Dose: 10 mg Documented by: Buspirone HCl (Buspirone 15 Mg Tab) 15 mg PO BID [facility] Stop: 12/13/21 08:59 Last Admin: 11/22/21 08:00 Dose: 15 mg Documented by: Cyclobenzaprine HCl (Cyclobenzaprine Hcl 10 Mg Tab) 10 mg PO Q8H PRN PRN Reason: MUSCLE SPASMS Stop: 12/13/21 05:33 Last Admin: 11/20/21 20:03 Dose: 10 mg Documented by: Digoxin (Digoxin 0.125 Mg Tab) 0.125 mg PO QPM [facility] Stop: 12/13/21 20:59 Last Admin: 11/21/21 20:28 Dose: 0.125 mg Documented by: Docusate Sodium (Docusate Sodium 100 Mg Cap) 100 mg PO BID [facility] Stop: 12/19/21 20:59 Last Admin: 11/22/21 08:02 Dose: 100 mg Documented by: Duloxetine HCl (Duloxetine Hcl 60 Mg Cap) 60 mg PO BID [facility] Stop: 12/13/21 08:59 Last Admin: 11/22/21 08:01 Dose: 60 mg Documented by: Furosemide (Furosemide 40 Mg Tab) 40 mg PO BID17 [facility] Stop: 12/16/21 16:59 Last Admin: 11/22/21 08:01 Dose: 40 mg Documented by: Levothyroxine Sodium (Levothyroxine Sodium 50 Mcg Tablet) 50 mcg PO DAILYBB [facility] Stop: 12/14/21 06:29 Last Admin: 11/22/21 05:59 Dose: 50 mcg Documented by: Lidocaine (Lidocaine 5% 1 Patch) 1 patch TD QAM [facility] Stop: 12/21/21 08:59 Last Admin: 11/22/21 08:02 Dose: 1 patch Documented by: Metoprolol Succinate (Metoprolol Succ 50mg Ext Rel Tab) 100 mg PO BID [facility] Stop: 12/15/21 20:59 Last Admin: 11/22/21 08:01 Dose: 100 mg Documented by: Miscellaneous (Remove Lidoderm Patch) 1 ea N/A DAILY@2100 [facility] Stop: 12/21/21 20:59 Last Admin: 11/21/21 20:30 Dose: Not Given Documented by: Nitroglycerin (Nitroglycerin Sl 0.4 Mg/Tab Tab) 0.4 mg SL UD PRN PRN Reason: Chest Pain Stop: 12/13/21 05:33 Ondansetron HCl (Ondansetron Inj 2 Mg/Ml 2 Ml Vial) 4 mg IV Q8H PRN PRN Reason: Nausea Stop: 12/14/21 08:45 Last Admin: 11/14/21 08:53 Dose: 4 mg Documented by: Oxycodone HCl (Oxycodone Hcl Ir 5 Mg Tab (Immediate Release)) 5 mg PO Q6H PRN PRN Reason: Pain Stop: 12/03/21 15:26 Last Admin: 11/22/21 05:59 Dose: 5 mg Documented by: Pantoprazole Sodium (Pantoprazole 40 Mg Tab) 40 mg PO DAILY [facility] Stop: 12/13/21 08:59 Last Admin: 11/22/21 08:01 Dose: 40 mg Documented by: Polyethylene Glycol (Polyethylene (Miralax) 17 Gm Pack) 17 gm PO DAILY PRN PRN Reason: Constipation Stop: 12/13/21 05:33 Last Admin: 11/21/21 17:31 Dose: 17 gm Documented by: Ropinirole HCl (Ropinirole Hcl 1 Mg Tablet) 1 mg PO TID [facility] Stop: 12/13/21 08:59 Last Admin: 11/22/21 08:02 Dose: 1 mg Documented by: Ropinirole HCl (Ropinirole Hcl 0.25 Mg Tablet) 0.25 mg PO [facility] Stop: 12/13/21 20:59 Last Admin: 11/21/21 20:28 Dose: 0.25 mg Documented by: Topiramate (Topiramate 100 Mg Tab) 100 mg PO BID [facility] Stop: 12/13/21 08:59 Last Admin: 11/22/21 08:01 Dose: 100 mg Documented by: Tramadol HCl (Tramadol Hcl 50 Mg Tablet) 25 - 50 mg PO Q4H PRN PRN Reason: Pain Stop: 12/15/21 22:43 Last Admin: 11/22/21 08:09 Dose: 50 mg Documented by: Zolpidem Tartrate (Zolpidem Tartrate 10 Mg Tab) 10 mg PO [facility] Stop: 12/19/21 20:59 Last Admin: 11/21/21 21:58 Dose: 10 mg Documented by:
[2021-11-22] MEDS: DIGOXIN 0.125 MG TAB PO SCH (19:45)
[2021-11-22] MEDS: rOPINIRole HCL 0.25 MG TABLET PO SCH (19:45)
[2021-11-22] MEDS: ATORVASTATIN 10 MG TAB PO SCH (19:46)
[2021-11-22] MEDS: ZOLPIDEM TARTRATE 10 MG TAB PO SCH (21:39)
[2021-11-22] MEDS: CYCLOBENZAPRINE HCL 10 MG TAB PO PRN (21:41)
[2021-11-22] MEDS: ACETAMINOPHEN 325 MG TAB PO PRN (21:41)
[2021-11-23] MEDS: LEVOTHYROXINE SODIUM 50 MCG TABLET PO SCH (05:30)
[2021-11-23 06:20] LABS: Hematocrit (blood only) 32.8 % (37-47); Hemoglobin 9.8 g/dL (12.0-16.0); Mean Corpuscular Hemoglobin 17.2 pg (25-34); Mean Corpuscular Hgb Conc 29.9 g/dL (32-36); Mean Corpuscular Volume 57.4 fL (80-100); Mean Platelet Volume 9.2 fL (7.4-10.4); Platelet Count 535 K/uL (130-400); RDW Standard Deviation 34.8 fL (36.4-46.3); Red Blood Count 5.71 M/uL (4.2-5.4); White Blood Count 7.56 K/uL (4.8-10.8)
[2021-11-23 06:38] LABS: Calcium 9.2 mg/dl (8.5-10.1); Creatinine Clr Calc Pharmacy 117.3 ml/min; Est GFR (African American) 112.6 ml/min; Est GFR (Non-African American) 97.2 ml/min; Magnesium 2.2 mg/dl (1.7-2.4); Phosphorus 3.5 mg/dl (2.5-4.9); Potassium 4.1 mmol/L (3.5-5.1)
[2021-11-23] MEDS: METOPROLOL SUCC 50MG EXT REL TAB PO SCH ×2 (07:33→21:31)
[2021-11-23] MEDS: busPIRone 15 MG TAB PO SCH ×2 (07:33→21:31)
[2021-11-23] MEDS: TOPIRAMATE 100 MG TAB PO SCH ×2 (07:33→21:32)
[2021-11-23] MEDS: DOCUSATE SODIUM 100 MG CAP PO SCH ×2 (07:33→21:31)
[2021-11-23] MEDS: ASPIRIN 81 MG ECTAB PO SCH (07:33)
[2021-11-23] MEDS: DULoxetine HCL 60 MG CAP PO SCH ×2 (07:33→21:31)
[2021-11-23] MEDS: rOPINIRole HCL 1 MG TABLET PO SCH ×3 (07:33→21:31)
[2021-11-23] MEDS: FUROSEMIDE 40 MG TAB PO SCH (07:34)
[2021-11-23] MEDS: PANTOprazole 40 MG TAB PO SCH (07:34)
[2021-11-23] MEDS: LIDOCAINE 5% 1 PATCH TD SCH (07:34)
[2021-11-23] MEDS: oxyCODONE HCL IR 5 MG TAB (IMMEDIATE RELEASE) PO PRN ×2 (08:54→17:11)
--- NOTE | 2021-11-23 09:08 | Hospitalist Progress Note ---
Date of Service November 23, 2021 Assessment & Plan (1) Atrial fibrillation with RVR: Plan: Seems to have history of longstanding persistent atrial fibrillation: Rate control Cardiology consulted Amiodarone and cardizem discontinued ECHO showed no LV wall motion abnormality with EF 55-60% cardizem drip stopped IV heparin drip was discontinued due to drop on hemoglobin No anticoagulation (risks greater than the benefit) patient refused any anticoagulant as well Continue metoprolol 100mg BID and digoxin 125mcg Cardiology follow up (outpt) arranged UTI Urine cx grew gram negative bacilli- Klebsiella Resistant to Rocephin completed the course Ertapenem Denied any urinary symptoms Anemia Baseline Hgb btw 8 to 9, Hgb 9.5 today Last colonoscopy was on 08/17- normal. GI recommended 10 yrs follow IV heparin drip discontinued because hgb dropped to 7.3 stable Hyponatremia Na 131 today Possible related to diuretic switched lasix 40 from bid to daily (edema also significantly improved) If Na continues to drop will hold lasix and consult nephrology Continue monitor BMP Depression Anxiety Bipolar disorder Denies any suicide ideation Psych consulted - recommended to continue home psych meds 1 to 1 observation discontinued Stable Hypothyroidism TSH 22 Levothyroxine increased to 50mcg Check TSH in 4 to 6 weeks B/L LE edema - resolved Doppler of LE extremity showed no DVT Continued Lasix 40mg BID, now switched to daily Hx of PE Pt was on coumadin several years ago Not on any anticoagulant currently Vergara's esophagus Continue omeprazole. Hyperlipidemia: Continue statin. Morbid obesity BMI 51.8 Counseling on weight loss Sleep apnea: Not on any CPAP DVT px IV heparin drip discontinued due to hgb dropped to 7.3 SCDs for now ( pt does not want the subq heparin) disposition Waiting for placement Admission and Anticipated Discharge Date Admission Date: November 13, 2021 Subjective Pt was seen in follow of Afib , anxiety Lying in bed in no acute distress Reports pain in her hip (chronic s/p surgery) Denies any chest pain, palpitation, dizziness, shortness of breath Also denies any abdominal pain nausea vomiting Review of Systems Review of Systems: All systems reviewed & are unremarkable except as noted in Subjective Physical Exam Physical Exam: General- No acute distress Head- atraumatic Eyes- PERRL, EOMI, ENT- oropharynx clear Neck- supple, no JVD Lungs- clear to auscultation Heart- irregular rhythm; no murmur Abdomen- normal bowel sounds, soft, nontender Extremities- no calf tenderness, + trace edema (significantly improved) Neuro- alert, oriented x 3; PERRL, EOMI; no facial palsy; no dysarthria, moves extremities however pain in R hip w/ movement Skin- warm & dry Results & Data Results & Data ([facility]) Vital Signs (Past 12 Hours) Vital Signs Temp Pulse Resp BP Pulse Ox 11/23/21 07:25 36.7 C 70 16 98/68 L 95 11/22/21 21:42 36.7 C 82 18 112/68 94 Laboratory Results 11/23/21 11/23/21 11/22/21 Range/Units 06:00 06:00 08:31 WBC 7.56 (4.8-10.8) K/uL RBC 5.71 H (4.2-5.4) M/uL Hgb 9.8 L (12.0-16.0) g/dL Hct 32.8 L (37-47) % MCV 57.4 L (80-100) fL MCH 17.2 L (25-34) pg MCHC 29.9 L (32-36) g/dL RDW Std Deviation 34.8 L (36.4-46.3) fL RDW Coeff of Fredrick 17.0 H (11.5-14.5) % Plt Count 535 H (130-400) K/uL MPV 9.2 (7.4-10.4) fL Sodium 131 L 127 L (136-145) mmol/L Potassium 4.1 4.4 (3.5-5.1) mmol/L Chloride 97 L 93 L (98-107) mmol/L Carbon Dioxide 26 26 (21-32) mmol/L Anion Gap 8 8 (3-11) BUN 26 H 26 H (6-23) mg/dl Creatinine 0.65 0.71 (0.6-1.2) mg/dl Est Cr Clr Drug Dosing 117.3 107.3 ml/min Est GFR ( Amer) 112.6 108.1 ml/min Est GFR (Non-Af Amer) 97.2 93.2 ml/min BUN/Creatinine Ratio 40.0 H 36.6 H (10-20) Glucose 98 99 (70-99(Fasting)) mg/dl Calcium 9.2 9.5 (8.5-10.1) mg/dl Phosphorus 3.5 (2.5-4.9) mg/dl Magnesium 2.2 (1.7-2.4) mg/dl 11/22/21 Range/Units 08:31 WBC 9.49 (4.8-10.8) K/uL RBC 5.48 H (4.2-5.4) M/uL Hgb 9.5 L (12.0-16.0) g/dL Hct 30.5 L (37-47) % MCV 55.7 L (80-100) fL MCH 17.3 L (25-34) pg MCHC 31.1 L (32-36) g/dL RDW Std Deviation 33.6 L (36.4-46.3) fL RDW Coeff of Fredrick 16.8 H (11.5-14.5) % Plt Count 606 H (130-400) K/uL MPV 9.3 (7.4-10.4) fL Sodium (136-145) mmol/L Potassium (3.5-5.1) mmol/L Chloride (98-107) mmol/L Carbon Dioxide (21-32) mmol/L Anion Gap (3-11) BUN (6-23) mg/dl Creatinine (0.6-1.2) mg/dl Est Cr Clr Drug Dosing ml/min Est GFR ( Amer) ml/min Est GFR (Non-Af Amer) ml/min BUN/Creatinine Ratio (10-20) Glucose (70-99(Fasting)) mg/dl Calcium (8.5-10.1) mg/dl Phosphorus (2.5-4.9) mg/dl Magnesium (1.7-2.4) mg/dl Medications Administered Current Inpatient Medications Acetaminophen (Acetaminophen 325 Mg Tab) 650 mg PO Q4H PRN PRN Reason: Pain or Fever Stop: 12/13/21 05:33 Last Admin: 11/22/21 21:41 Dose: 650 mg Documented by: Aspirin (A[facility]in 81 Mg Ectab) [facility]: 12/13/21 08:59 Last Admin: 11/23/21 07:33 Dose: 81 mg Documented by: Atorvastatin Calcium (Atorvastatin 10 Mg Tab) 10 mg PO [facility] Stop: 12/13/21 20:59 Last Admin: 11/22/21 19:46 Dose: 10 mg Documented by: Buspirone HCl (Buspirone 15 Mg Tab) 15 mg PO BID [facility] Stop: 12/13/21 08:59 Last Admin: 11/23/21 07:33 Dose: 15 mg Documented by: Cyclobenzaprine HCl (Cyclobenzaprine Hcl 10 Mg Tab) 10 mg PO Q8H PRN PRN Reason: MUSCLE SPASMS Stop: 12/13/21 05:33 Last Admin: 11/22/21 21:41 Dose: 10 mg Documented by: Digoxin (Digoxin 0.125 Mg Tab) 0.125 mg PO QPM [facility] Stop: 12/13/21 20:59 Last Admin: 11/22/21 19:45 Dose: 0.125 mg Documented by: Docusate Sodium (Docusate Sodium 100 Mg Cap) 100 mg PO BID [facility] Stop: 12/19/21 20:59 Last Admin: 11/23/21 07:33 Dose: 100 mg Documented by: Duloxetine HCl (Duloxetine Hcl 60 Mg Cap) 60 mg PO BID [facility] Stop: 12/13/21 08:59 Last Admin: 11/23/21 07:33 Dose: 60 mg Documented by: Furosemide (Furosemide 40 Mg Tab) 40 mg PO QAM [facility] Stop: 12/23/21 08:59 Last Admin: 11/23/21 07:34 Dose: 40 mg Documented by: Levothyroxine Sodium (Levothyroxine Sodium 50 Mcg Tablet) 50 mcg PO DAILYBB [facility] Stop: 12/14/21 06:29 Last Admin: 11/23/21 05:30 Dose: 50 mcg Documented by: Lidocaine (Lidocaine 5% 1 Patch) 1 patch TD QAM [facility] Stop: 12/21/21 08:59 Last Admin: 11/23/21 07:34 Dose: 1 patch Documented by: Metoprolol Succinate (Metoprolol Succ 50mg Ext Rel Tab) 100 mg PO BID [facility] Stop: 12/15/21 20:59 Last Admin: 11/23/21 07:33 Dose: Not Given Documented by: Miscellaneous (Remove Lidoderm Patch) 1 ea N/A DAILY@2100 [facility] Stop: 12/21/21 20:59 Last Admin: 11/22/21 19:48 Dose: 1 ea Documented by: Nitroglycerin (Nitroglycerin Sl 0.4 Mg/Tab Tab) 0.4 mg SL UD PRN PRN Reason: Chest Pain Stop: 12/13/21 05:33 Ondansetron HCl (Ondansetron Inj 2 Mg/Ml 2 Ml Vial) 4 mg IV Q8H PRN PRN Reason: Nausea Stop: 12/14/21 08:45 Last Admin: 11/14/21 08:53 Dose: 4 mg Documented by: Oxycodone HCl (Oxycodone Hcl Ir 5 Mg Tab (Immediate Release)) 5 mg PO Q6H PRN PRN Reason: Pain Stop: 12/03/21 15:26 Last Admin: 11/23/21 08:54 Dose: 5 mg Documented by: Pantoprazole Sodium (Pantoprazole 40 Mg Tab) 40 mg PO DAILY [facility] Stop: 12/13/21 08:59 Last Admin: 11/23/21 07:34 Dose: 40 mg Documented by: Polyethylene Glycol (Polyethylene (Miralax) 17 Gm Pack) 17 gm PO DAILY PRN PRN Reason: Constipation Stop: 12/13/21 05:33 Last Admin: 11/21/21 17:31 Dose: 17 gm Documented by: Ropinirole HCl (Ropinirole Hcl 1 Mg Tablet) 1 mg PO TID [facility] Stop: 12/13/21 08:59 Last Admin: 11/23/21 07:33 Dose: 1 mg Documented by: Ropinirole HCl (Ropinirole Hcl 0.25 Mg Tablet) 0.25 mg PO HS [facility] Stop: 12/13/21 20:59 Last Admin: 11/22/21 19:45 Dose: 0.25 mg Documented by: Topiramate (Topiramate 100 Mg Tab) 100 mg PO BID [facility] Stop: 12/13/21 08:59 Last Admin: 11/23/21 07:33 Dose: 100 mg Documented by: Tramadol HCl (Tramadol Hcl 50 Mg Tablet) 25 - 50 mg PO Q4H PRN PRN Reason: Pain Stop: 12/15/21 22:43 Last Admin: 11/22/21 19:44 Dose: 50 mg Documented by: Zolpidem Tartrate (Zolpidem Tartrate 10 Mg Tab) 10 mg PO HS [facility] Stop: 12/19/21 20:59 Last Admin: 11/22/21 21:39 Dose: 10 mg Documented by:
[2021-11-23] MEDS: traMADol HCL 50 MG TABLET PO PRN ×2 (12:24→19:39)
[2021-11-23] MEDS: ACETAMINOPHEN 325 MG TAB PO PRN ×2 (14:29→19:38)
[2021-11-23] MEDS: CYCLOBENZAPRINE HCL 10 MG TAB PO PRN (14:29)
[2021-11-23] MEDS: DIGOXIN 0.125 MG TAB PO SCH (21:31)
[2021-11-23] MEDS: rOPINIRole HCL 0.25 MG TABLET PO SCH (21:31)
[2021-11-23] MEDS: ATORVASTATIN 10 MG TAB PO SCH (21:31)
[2021-11-23] MEDS: ZOLPIDEM TARTRATE 10 MG TAB PO SCH (22:30)
[2021-11-24] MEDS: oxyCODONE HCL IR 5 MG TAB (IMMEDIATE RELEASE) PO PRN ×3 (06:20→22:09)
[2021-11-24] MEDS: LEVOTHYROXINE SODIUM 50 MCG TABLET PO SCH (06:20)
[2021-11-24 08:04] LABS: BUN Creatinine Ratio 37.1 (10-20); Calcium 9.3 mg/dl (8.5-10.1); Creatinine Clr Calc Pharmacy 108.9 ml/min; Est GFR (African American) 109.9 ml/min; Est GFR (Non-African American) 94.8 ml/min; Magnesium 2.2 mg/dl (1.7-2.4); Potassium 4.2 mmol/L (3.5-5.1)
[2021-11-24] MEDS: rOPINIRole HCL 1 MG TABLET PO SCH ×3 (08:06→20:41)
[2021-11-24] MEDS: POLYETHYLENE (MIRALAX) 17 GM PACK PO PRN (08:06)
[2021-11-24] MEDS: METOPROLOL SUCC 50MG EXT REL TAB PO SCH ×2 (08:06→20:40)
[2021-11-24] MEDS: PANTOprazole 40 MG TAB PO SCH (08:06)
[2021-11-24] MEDS: TOPIRAMATE 100 MG TAB PO SCH ×2 (08:06→20:42)
[2021-11-24] MEDS: busPIRone 15 MG TAB PO SCH ×2 (08:06→20:39)
[2021-11-24] MEDS: ASPIRIN 81 MG ECTAB PO SCH (08:07)
[2021-11-24] MEDS: DULoxetine HCL 60 MG CAP PO SCH ×2 (08:07→20:40)
[2021-11-24] MEDS: DOCUSATE SODIUM 100 MG CAP PO SCH ×2 (08:07→20:40)
[2021-11-24] MEDS: FUROSEMIDE 40 MG TAB PO SCH (08:07)
[2021-11-24] MEDS: LIDOCAINE 5% 1 PATCH TD SCH (08:09)
--- NOTE | 2021-11-24 18:39 | Hospitalist Progress Note ---
Date of Service November 24, 2021 Assessment & Plan (1) Atrial fibrillation with RVR: Plan: Seems to have history of longstanding persistent atrial fibrillation: Rate control Cardiology consulted Amiodarone and cardizem discontinued ECHO showed no LV wall motion abnormality with EF 55-60% cardizem drip stopped IV heparin drip was discontinued due to drop on hemoglobin No anticoagulation (risks greater than the benefit) patient refused any anticoagulant as well Continue metoprolol 100mg BID and digoxin 125mcg Cardiology follow up (outpt) arranged UTI Urine cx grew gram negative bacilli- Klebsiella Resistant to Rocephin completed the course Ertapenem Denied any urinary symptoms Anemia Baseline Hgb btw 8 to 9, Hgb 9.5 today Last colonoscopy was on 08/17- normal. GI recommended 10 yrs follow IV heparin drip discontinued because hgb dropped to 7.3 stable Hyponatremia current Na 130- 131 Possible related to diuretic switched lasix 40 from bid to daily (edema also significantly improved), will stop now as no edema If Na continues to drop will hold lasix and consult nephrology Continue monitor BMP Depression Anxiety Bipolar disorder Denies any suicide ideation Psych consulted - recommended to continue home psych meds 1 to 1 observation discontinued Stable Hypothyroidism TSH 22 Levothyroxine increased to 50mcg Check TSH in 4 to 6 weeks B/L LE edema - resolved Doppler of LE extremity showed no DVT Continued Lasix 40mg BID, then switched to daily BP lower and edema resolved - will hold lasix Hx of PE Pt was on coumadin several years ago Not on any anticoagulant currently Vergara's esophagus Continue omeprazole. Hyperlipidemia: Continue statin. Morbid obesity BMI 51.8 Counseling on weight loss Sleep apnea: Not on any CPAP DVT px IV heparin drip discontinued due to hgb dropped to 7.3 SCDs for now ( pt does not want the subq heparin) disposition Waiting for placement Admission and Anticipated Discharge Date Admission Date: November 13, 2021 Subjective Pt was seen in follow of Afib , anxiety Lying in bed in no acute distress Reports pain in her hip (chronic s/p surgery) Denies any chest pain, palpitation, dizziness, shortness of breath Also denies any abdominal pain nausea vomiting Review of Systems Review of Systems: All systems reviewed & are unremarkable except as noted in Subjective Physical Exam Physical Exam: General- No acute distress Head- atraumatic Eyes- PERRL, EOMI, ENT- oropharynx clear Neck- supple, no JVD Lungs- clear to auscultation Heart- irregular rhythm; no murmur Abdomen- normal bowel sounds, soft, nontender Extremities- no calf tenderness, no LE edema (significantly improved) Neuro- alert, oriented x 3; PERRL, EOMI; no facial palsy; no dysarthria, moves extremities however pain in R hip w/ movement Skin- warm & dry Results & Data Results & Data ([facility]) Vital Signs (Past 12 Hours) Vital Signs Temp Pulse Resp BP Pulse Ox 11/24/21 14:52 36.7 C 83 18 95/64 L 94 11/24/21 06:51 36.9 C 82 20 103/64 92 Laboratory Results 11/24/21 Range/Units 06:58 Sodium 130 L (136-145) mmol/L Potassium 4.2 (3.5-5.1) mmol/L Chloride 96 L (98-107) mmol/L Carbon Dioxide 27 (21-32) mmol/L Anion Gap 7 (3-11) BUN 26 H (6-23) mg/dl Creatinine 0.70 (0.6-1.2) mg/dl Est Cr Clr Drug Dosing 108.9 ml/min Est GFR ( Amer) 109.9 ml/min Est GFR (Non-Af Amer) 94.8 ml/min BUN/Creatinine Ratio 37.1 H (10-20) Glucose 99 (70-99(Fasting)) mg/dl Calcium 9.3 (8.5-10.1) mg/dl Magnesium 2.2 (1.7-2.4) mg/dl Medications Administered Current Inpatient Medications Acetaminophen (Acetaminophen 325 Mg Tab) 650 mg PO Q4H PRN PRN Reason: Pain or Fever Stop: 12/13/21 05:33 Last Admin: 11/23/21 19:38 Dose: 650 mg Documented by: Aspirin (Aspirin 81 Mg Ectab) [facility] Stop: 12/13/21 08:59 Last Admin: 11/24/21 08:07 Dose: 81 mg Documented by: Atorvastatin Calcium (Atorvastatin 10 Mg Tab) 10 mg PO HS [facility] Stop: 12/13/21 20:59 Last Admin: 11/23/21 21:31 Dose: 10 mg Documented by: Buspirone HCl (Buspirone 15 Mg Tab) 15 mg PO BID [facility] Stop: 12/13/21 08:59 Last Admin: 11/24/21 08:06 Dose: 15 mg Documented by: Cyclobenzaprine HCl (Cyclobenzaprine Hcl 10 Mg Tab) 10 mg PO Q8H PRN PRN Reason: MUSCLE SPASMS Stop: 12/13/21 05:33 Last Admin: 11/23/21 14:29 Dose: 10 mg Documented by: Digoxin (Digoxin 0.125 Mg Tab) 0.125 mg PO QPM [facility] Stop: 12/13/21 20:59 Last Admin: 11/23/21 21:31 Dose: 0.125 mg Documented by: Docusate Sodium (Docusate Sodium 100 Mg Cap) 100 mg PO BID [facility] Stop: 12/19/21 20:59 Last Admin: 11/24/21 08:07 Dose: Not Given Documented by: Duloxetine HCl (Duloxetine Hcl 60 Mg Cap) 60 mg PO BID [facility] Stop: 12/13/21 08:59 Last Admin: 11/24/21 08:07 Dose: 60 mg Documented by: Furosemide (Furosemide 40 Mg Tab) 40 mg PO QAM [facility] Stop: 12/23/21 08:59 Last Admin: 11/24/21 08:07 Dose: 40 mg Documented by: Levothyroxine Sodium (Levothyroxine Sodium 50 Mcg Tablet) 50 mcg PO DAILYBB [facility] Stop: 12/14/21 06:29 Last Admin: 11/24/21 06:20 Dose: 50 mcg Documented by: Lidocaine (Lidocaine 5% 1 Patch) 1 patch TD QAM [facility] Stop: 12/21/21 08:59 Last Admin: 11/24/21 08:09 Dose: 1 patch Documented by: Metoprolol Succinate (Metoprolol Succ 50mg Ext Rel Tab) 100 mg PO BID [facility] Stop: 12/15/21 20:59 Last Admin: 11/24/21 08:06 Dose: 100 mg Documented by: Miscellaneous (Remove Lidoderm Patch) 1 ea N/A DAILY@2100 [facility] Stop: 12/21/21 20:59 Last Admin: 11/23/21 21:32 Dose: 1 ea Documented by: Nitroglycerin (Nitroglycerin Sl 0.4 Mg/Tab Tab) 0.4 mg SL UD PRN PRN Reason: Chest Pain Stop: 12/13/21 05:33 Ondansetron HCl (Ondansetron Inj 2 Mg/Ml 2 Ml Vial) 4 mg IV Q8H PRN PRN Reason: Nausea Stop: 12/14/21 08:45 Last Admin: 11/14/21 08:53 Dose: 4 mg Documented by: Oxycodone HCl (Oxycodone Hcl Ir 5 Mg Tab (Immediate Release)) 5 mg PO Q6H PRN PRN Reason: Pain Stop: 12/03/21 15:26 Last Admin: 11/24/21 14:12 Dose: 5 mg Documented by: Pantoprazole Sodium (Pantoprazole 40 Mg Tab) 40 mg PO DAILY [facility] Stop: 12/13/21 08:59 Last Admin: 11/24/21 08:06 Dose: 40 mg Documented by: Polyethylene Glycol (Polyethylene (Miralax) 17 Gm Pack) 17 gm PO DAILY PRN PRN Reason: Constipation Stop: 12/13/21 05:33 Last Admin: 11/24/21 08:06 Dose: 17 gm Documented by: Ropinirole HCl (Ropinirole Hcl 1 Mg Tablet) 1 mg PO TID [facility] Stop: 12/13/21 08:59 Last Admin: 11/24/21 14:12 Dose: 1 mg Documented by: Ropinirole HCl (Ropinirole Hcl 0.25 Mg Tablet) 0.25 mg PO HS [facility] Stop: 12/13/21 20:59 Last Admin: 11/23/21 21:31 Dose: 0.25 mg Documented by: Topiramate (Topiramate 100 Mg Tab) 100 mg PO BID [facility] Stop: 12/13/21 08:59 Last Admin: 11/24/21 08:06 Dose: 100 mg Documented by: Tramadol HCl (Tramadol Hcl 50 Mg Tablet) 25 - 50 mg PO Q4H PRN PRN Reason: Pain Stop: 12/15/21 22:43 Last Admin: 11/23/21 19:39 Dose: 50 mg Documented by: Zolpidem Tartrate (Zolpidem Tartrate 10 Mg Tab) 10 mg PO HS [facility] Stop: 12/19/21 20:59 Last Admin: 11/23/21 22:30 Dose: 10 mg Documented by:
[2021-11-24] MEDS: traMADol HCL 50 MG TABLET PO PRN (19:45)
[2021-11-24] MEDS: CYCLOBENZAPRINE HCL 10 MG TAB PO PRN (19:45)
[2021-11-24] MEDS: ATORVASTATIN 10 MG TAB PO SCH (20:39)
[2021-11-24] MEDS: DIGOXIN 0.125 MG TAB PO SCH (20:39)
[2021-11-24] MEDS: rOPINIRole HCL 0.25 MG TABLET PO SCH (20:42)
[2021-11-24] MEDS: ONDANSETRON INJ 2 MG/ML 2 ML VIAL IV PRN ×2 (21:54→23:04)
[2021-11-24] MEDS: ZOLPIDEM TARTRATE 10 MG TAB PO SCH (23:03)
[2021-11-25] MEDS: ACETAMINOPHEN 325 MG TAB PO PRN ×2 (02:51→19:42)
[2021-11-25] MEDS: LEVOTHYROXINE SODIUM 50 MCG TABLET PO SCH (05:32)
--- NOTE | 2021-11-25 07:30 | Hospitalist Progress Note ---
Date of Service November 25, 2021 Assessment & Plan (1) Atrial fibrillation with RVR: Plan: Seems to have history of longstanding persistent atrial fibrillation: Rate control Cardiology consulted Amiodarone and cardizem discontinued ECHO showed no LV wall motion abnormality with EF 55-60% cardizem drip stopped IV heparin drip was discontinued due to drop on hemoglobin No anticoagulation (risks greater than the benefit) patient refused any anticoagulant as well Continue metoprolol 100mg BID and digoxin 125mcg Cardiology follow up (outpt) arranged UTI Urine cx grew gram negative bacilli- Klebsiella Resistant to Rocephin completed the course Ertapenem Denied any urinary symptoms Anemia Baseline Hgb btw 8 to 9, Hgb 9.5 today Last colonoscopy was on 08/17- normal. GI recommended 10 yrs follow IV heparin drip discontinued because hgb dropped to 7.3 stable Hyponatremia current Na 130- 131 Possible related to diuretic, psych meds switched lasix 40 from bid to daily (edema also significantly improved), will stop now as no edema If Na continues to drop will hold lasix and consult nephrology Continue monitor BMP Depression Anxiety Bipolar disorder Denies any suicide ideation Psych consulted - recommended to continue home psych meds 1 to 1 observation discontinued Stable Hypothyroidism TSH 22 Levothyroxine increased to 50mcg Check TSH in 4 to 6 weeks B/L LE edema - resolved Doppler of LE extremity showed no DVT Continued Lasix 40mg BID, then switched to daily BP lower and edema resolved - will hold lasix Hx of PE Pt was on coumadin several years ago Not on any anticoagulant currently Vergara's esophagus Continue omeprazole. Hyperlipidemia: Continue statin. Morbid obesity BMI 51.8 Counseling on weight loss Sleep apnea: Not on any CPAP DVT px IV heparin drip discontinued due to hgb dropped to 7.3 SCDs ( pt refused heparin subq but now she is ok getting heparin) disposition Waiting for placement Admission and Anticipated Discharge Date Admission Date: November 13, 2021 Subjective Pt was seen in follow of Afib , anxiety Lying in bed in no acute distress Reports pain in her hip (chronic s/p surgery) Denies any chest pain, palpitation, dizziness, shortness of breath Also denies any abdominal pain nausea vomiting Review of Systems Review of Systems: All systems reviewed & are unremarkable except as noted in Subjective Physical Exam Physical Exam: General- No acute distress Head- atraumatic Eyes- PERRL, EOMI, ENT- oropharynx clear Neck- supple, no JVD Lungs- clear to auscultation Heart- irregular rhythm; no murmur Abdomen- normal bowel sounds, soft, nontender Extremities- no calf tenderness, no LE edema (significantly improved) Neuro- alert, oriented x 3; PERRL, EOMI; no facial palsy; no dysarthria, moves extremities however pain in R hip w/ movement Skin- warm & dry Results & Data Results & Data ([facility]) Vital Signs (Past 12 Hours) Vital Signs Temp Pulse Pulse Resp BP Pulse Ox 11/24/21 22:34 36.8 C 88 18 119/78 95 11/24/21 20:36 83 116/76 Laboratory Results 11/25/21 Range/Units 06:48 Sodium 130 L (136-145) mmol/L Potassium 4.1 (3.5-5.1) mmol/L Chloride 96 L (98-107) mmol/L Carbon Dioxide 28 (21-32) mmol/L Anion Gap 6 (3-11) BUN 28 H (6-23) mg/dl Creatinine 0.65 (0.6-1.2) mg/dl Est Cr Clr Drug Dosing 117.3 ml/min Est GFR ( Amer) 112.6 ml/min Est GFR (Non-Af Amer) 97.2 ml/min BUN/Creatinine Ratio 43.1 H (10-20) Glucose 99 (70-99(Fasting)) mg/dl Calcium 9.2 (8.5-10.1) mg/dl Medications Administered Current Inpatient Medications Acetaminophen (Acetaminophen 325 Mg Tab) 650 mg PO Q4H PRN PRN Reason: Pain or Fever Stop: 12/13/21 05:33 Last Admin: 11/25/21 02:51 Dose: 650 mg Documented by: Aspirin (Aspirin 81 Mg Ectab) [facility] [place]: 12/13/21 08:59 Last Admin: 11/24/21 08:07 Dose: 81 mg Documented by: Atorvastatin Calcium (Atorvastatin 10 Mg Tab) 10 mg PO HS [facility] Stop: 12/13/21 20:59 Last Admin: 11/24/21 20:39 Dose: 10 mg Documented by: Buspirone HCl (Buspirone 15 Mg Tab) 15 mg PO BID [facility] Stop: 12/13/21 08:59 Last Admin: 11/24/21 20:39 Dose: 15 mg Documented by: Cyclobenzaprine HCl (Cyclobenzaprine Hcl 10 Mg Tab) 10 mg PO Q8H PRN PRN Reason: MUSCLE SPASMS Stop: 12/13/21 05:33 Last Admin: 11/24/21 19:45 Dose: 10 mg Documented by: Digoxin (Digoxin 0.125 Mg Tab) 0.125 mg PO QPM [facility] Stop: 12/13/21 20:59 Last Admin: 11/24/21 20:39 Dose: 0.125 mg Documented by: Docusate Sodium (Docusate Sodium 100 Mg Cap) 100 mg PO BID [facility] Stop: 12/19/21 20:59 Last Admin: 11/24/21 20:40 Dose: 100 mg Documented by: Duloxetine HCl (Duloxetine Hcl 60 Mg Cap) 60 mg PO BID [facility] Stop: 12/13/21 08:59 Last Admin: 11/24/21 20:40 Dose: 60 mg Documented by: Furosemide (Furosemide 40 Mg Tab) [facility] [place]: 12/23/21 08:59 Last Admin: 11/24/21 08:07 Dose: 40 mg Documented by: Levothyroxine Sodium (Levothyroxine Sodium 50 Mcg Tablet) 50 mcg PO DAILYBB [facility] Stop: 12/14/21 06:29 Last Admin: 11/25/21 05:32 Dose: 50 mcg Documented by: Lidocaine (Lidocaine 5% 1 Patch) 1 patch TD QAM [facility] Stop: 12/21/21 08:59 Last Admin: 11/24/21 08:09 Dose: 1 patch Documented by: Metoprolol Succinate (Metoprolol Succ 50mg Ext Rel Tab) 100 mg PO BID [facility] Stop: 12/15/21 20:59 Last Admin: 11/24/21 20:40 Dose: 100 mg Documented by: Miscellaneous (Remove Lidoderm Patch) 1 ea N/A DAILY@2100 [facility] Stop: 12/21/21 20:59 Last Admin: 11/24/21 20:41 Dose: 1 ea Documented by: Nitroglycerin (Nitroglycerin Sl 0.4 Mg/Tab Tab) 0.4 mg SL UD PRN PRN Reason: Chest Pain Stop: 12/13/21 05:33 Ondansetron HCl (Ondansetron Inj 2 Mg/Ml 2 Ml Vial) 4 mg IV Q8H PRN PRN Reason: Nausea Stop: 12/14/21 08:45 Last Admin: 11/24/21 23:04 Dose: 4 mg Documented by: Oxycodone HCl (Oxycodone Hcl Ir 5 Mg Tab (Immediate Release)) 5 mg PO Q6H PRN PRN Reason: Pain Stop: 12/03/21 15:26 Last Admin: 11/24/21 22:09 Dose: 5 mg Documented by: Pantoprazole Sodium (Pantoprazole 40 Mg Tab) 40 mg PO DAILY [facility] Stop: 12/13/21 08:59 Last Admin: 11/24/21 08:06 Dose: 40 mg Documented by: Polyethylene Glycol (Polyethylene (Miralax) 17 Gm Pack) 17 gm PO DAILY PRN PRN Reason: Constipation Stop: 12/13/21 05:33 Last Admin: 11/24/21 08:06 Dose: 17 gm Documented by: Ropinirole HCl (Ropinirole Hcl 1 Mg Tablet) 1 mg PO TID [facility] Stop: 12/13/21 08:59 Last Admin: 11/24/21 20:41 Dose: 1 mg Documented by: Ropinirole HCl (Ropinirole Hcl 0.25 Mg Tablet) 0.25 mg PO HS [facility] Stop: 12/13/21 20:59 Last Admin: 11/24/21 20:42 Dose: 0.25 mg Documented by: Topiramate (Topiramate 100 Mg Tab) 100 mg PO BID [facility] Stop: 12/13/21 08:59 Last Admin: 11/24/21 20:42 Dose: 100 mg Documented by: Tramadol HCl (Tramadol Hcl 50 Mg Tablet) 25 - 50 mg PO Q4H PRN PRN Reason: Pain Stop: 12/15/21 22:43 Last Admin: 11/24/21 19:45 Dose: 50 mg Documented by: Zolpidem Tartrate (Zolpidem Tartrate 10 Mg Tab) 10 mg PO HS [facility] Stop: 12/19/21 20:59 Last Admin: 11/24/21 23:03 Dose: 10 mg Documented by:
[2021-11-25 07:36] LABS: BUN Creatinine Ratio 43.1 (10-20); Calcium 9.2 mg/dl (8.5-10.1); Creatinine Clr Calc Pharmacy 117.3 ml/min; Est GFR (African American) 112.6 ml/min; Est GFR (Non-African American) 97.2 ml/min; Potassium 4.1 mmol/L (3.5-5.1)
[2021-11-25] MEDS: TOPIRAMATE 100 MG TAB PO SCH ×2 (08:14→19:46)
[2021-11-25] MEDS: rOPINIRole HCL 1 MG TABLET PO SCH ×3 (08:14→19:46)
[2021-11-25] MEDS: METOPROLOL SUCC 50MG EXT REL TAB PO SCH ×2 (08:14→19:45)
[2021-11-25] MEDS: busPIRone 15 MG TAB PO SCH ×2 (08:14→19:44)
[2021-11-25] MEDS: DULoxetine HCL 60 MG CAP PO SCH ×2 (08:14→19:45)
[2021-11-25] MEDS: LIDOCAINE 5% 1 PATCH TD SCH (08:15)
[2021-11-25] MEDS: ASPIRIN 81 MG ECTAB PO SCH (08:15)
[2021-11-25] MEDS: DOCUSATE SODIUM 100 MG CAP PO SCH ×2 (08:15→19:45)
[2021-11-25] MEDS: PANTOprazole 40 MG TAB PO SCH (08:15)
[2021-11-25] MEDS: oxyCODONE HCL IR 5 MG TAB (IMMEDIATE RELEASE) PO PRN ×2 (08:18→16:08)
[2021-11-25] MEDS: CYCLOBENZAPRINE HCL 10 MG TAB PO PRN ×2 (08:47→19:43)
[2021-11-25] MEDS: POLYETHYLENE (MIRALAX) 17 GM PACK PO PRN (08:59)
[2021-11-25] MEDS: HEPARIN SOD 5,000 UNIT/0.5 ML VIAL SQ SCH ×2 (14:02→21:47)
[2021-11-25] MEDS: ATORVASTATIN 10 MG TAB PO SCH (19:43)
[2021-11-25] MEDS: DIGOXIN 0.125 MG TAB PO SCH (19:44)
[2021-11-25] MEDS: rOPINIRole HCL 0.25 MG TABLET PO SCH (19:46)
[2021-11-25] MEDS: ZOLPIDEM TARTRATE 10 MG TAB PO SCH (21:44)
[2021-11-26] MEDS: traMADol HCL 50 MG TABLET PO PRN (04:13)
[2021-11-26] MEDS: LEVOTHYROXINE SODIUM 50 MCG TABLET PO SCH (05:45)
[2021-11-26] MEDS: oxyCODONE HCL IR 5 MG TAB (IMMEDIATE RELEASE) PO PRN ×2 (05:51→17:24)
[2021-11-26] MEDS: busPIRone 15 MG TAB PO SCH ×2 (08:09→19:31)
[2021-11-26] MEDS: METOPROLOL SUCC 50MG EXT REL TAB PO SCH ×2 (08:09→19:33)
[2021-11-26] MEDS: rOPINIRole HCL 1 MG TABLET PO SCH ×3 (08:09→19:33)
[2021-11-26] MEDS: PANTOprazole 40 MG TAB PO SCH (08:09)
[2021-11-26] MEDS: TOPIRAMATE 100 MG TAB PO SCH ×2 (08:09→19:34)
[2021-11-26] MEDS: LIDOCAINE 5% 1 PATCH TD SCH (08:10)
[2021-11-26] MEDS: DOCUSATE SODIUM 100 MG CAP PO SCH ×3 (08:10→19:32)
[2021-11-26] MEDS: DULoxetine HCL 60 MG CAP PO SCH ×2 (08:10→19:33)
[2021-11-26] MEDS: ASPIRIN 81 MG ECTAB PO SCH (08:10)
--- NOTE | 2021-11-26 08:34 | Hospitalist Progress Note ---
Date of Service November 26, 2021 Assessment & Plan (1) Atrial fibrillation with RVR: Plan: Seems to have history of longstanding persistent atrial fibrillation: Rate control Cardiology consulted Amiodarone and cardizem discontinued ECHO showed no LV wall motion abnormality with EF 55-60% cardizem drip stopped IV heparin drip was discontinued due to drop on hemoglobin No anticoagulation (risks greater than the benefit) patient refused any anticoagulant as well Continue metoprolol 100mg BID and digoxin 125mcg Cardiology follow up (outpt) arranged UTI Urine cx grew gram negative bacilli- Klebsiella Resistant to Rocephin completed the course Ertapenem Denied any urinary symptoms Anemia Baseline Hgb btw 8 to 9, Hgb 9.5 today Last colonoscopy was on 08/17- normal. GI recommended 10 yrs follow IV heparin drip discontinued because hgb dropped to 7.3 stable Hyponatremia current Na 130- 131 Possible related to diuretic, psych meds switched lasix 40 from bid to daily (edema also significantly improved), will stop now as no edema If Na continues to drop will hold lasix and consult nephrology Continue monitor BMP Depression Anxiety Bipolar disorder Denies any suicide ideation Psych consulted - recommended to continue home psych meds 1 to 1 observation discontinued Stable Hypothyroidism TSH 22 Levothyroxine increased to 50mcg Check TSH in 4 to 6 weeks B/L LE edema - resolved Doppler of LE extremity showed no DVT Continued Lasix 40mg BID, then switched to daily BP lower and edema resolved - will hold lasix Hx of PE Pt was on coumadin several years ago Not on any anticoagulant currently Vergara's esophagus Continue omeprazole. Hyperlipidemia: Continue statin. Morbid obesity BMI 51.8 Counseling on weight loss Sleep apnea: Not on any CPAP DVT: SCDs, heparin subq disposition : Waiting for placement Admission and Anticipated Discharge Date Admission Date: November 13, 2021 Subjective Pt was seen in follow of Afib , anxiety Lying in bed in no acute distress Reports pain in her hip (chronic s/p surgery) Denies any chest pain, palpitation, dizziness, shortness of breath Also denies any abdominal pain nausea vomiting Today she feels more teary, says that her family does not talk to her which makes her more depressed Review of Systems Review of Systems: All systems reviewed & are unremarkable except as noted in Subjective Physical Exam Physical Exam: General- No acute distress Head- atraumatic Eyes- PERRL, EOMI, ENT- oropharynx clear Neck- supple, no JVD Lungs- clear to auscultation Heart- irregular rhythm; no murmur Abdomen- normal bowel sounds, soft, nontender Extremities- no calf tenderness, no LE edema (significantly improved) Neuro- alert, oriented x 3; PERRL, EOMI; no facial palsy; no dysarthria, moves extremities however pain in R hip w/ movement Skin- warm & dry Results & Data Results & Data ([facility]) Vital Signs (Past 12 Hours) Vital Signs Temp Pulse Resp BP BP Pulse Ox 11/26/21 07:08 36.5 C 80 18 114/67 93 11/25/21 22:44 36.6 C 86 18 102/61 93 Medications Administered Current Inpatient Medications Acetaminophen (Acetaminophen 325 Mg Tab) 650 mg PO Q4H PRN PRN Reason: Pain or Fever Stop: 12/13/21 05:33 Last Admin: 11/25/21 19:42 Dose: 650 mg Documented by: Aspirin (Aspirin 81 Mg Ectab) 81 mg PO QAM [facility] Stop: 12/13/21 08:59 Last Admin: 11/26/21 08:10 Dose: 81 mg Documented by: Atorvastatin Calcium (Atorvastatin 10 Mg Tab) 10 mg PO HS [facility] Stop: 12/13/21 20:59 Last Admin: 11/25/21 19:43 Dose: 10 mg Documented by: Buspirone HCl (Buspirone 15 Mg Tab) 15 mg PO BID [facility] Stop: 12/13/21 08:59 Last Admin: 11/26/21 08:09 Dose: 15 mg Documented by: Cyclobenzaprine HCl (Cyclobenzaprine Hcl 10 Mg Tab) 10 mg PO Q8H PRN PRN Reason: MUSCLE SPASMS Stop: 12/13/21 05:33 Last Admin: 11/25/21 19:43 Dose: 10 mg Documented by: Digoxin (Digoxin 0.125 Mg Tab) 0.125 mg PO QPM [facility] Stop: 12/13/21 20:59 Last Admin: 11/25/21 19:44 Dose: 0.125 mg Documented by: Docusate Sodium (Docusate Sodium 100 Mg Cap) 100 mg PO BID [facility] Stop: 12/19/21 20:59 Last Admin: 11/26/21 08:10 Dose: Not Given Documented by: Duloxetine HCl (Duloxetine Hcl 60 Mg Cap) 60 mg PO BID [facility] Stop: 12/13/21 08:59 Last Admin: 11/26/21 08:10 Dose: 60 mg Documented by: Furosemide (Furosemide 40 Mg Tab) 40 mg PO QAM [facility] Stop: 12/23/21 08:59 Last Admin: 11/24/21 08:07 Dose: 40 mg Documented by: Heparin Sodium (Porcine) (Heparin Sod 5,000 Unit/0.5 Ml Vial) 7,500 units SQ Q12H [facility] Stop: 12/25/21 11:14 Last Admin: 11/25/21 21:47 Dose: 7,500 units Documented by: Levothyroxine Sodium (Levothyroxine Sodium 50 Mcg Tablet) 50 mcg PO DAILYBB [facility] Stop: 12/14/21 06:29 Last Admin: 11/26/21 05:45 Dose: 50 mcg Documented by: Lidocaine (Lidocaine 5% 1 Patch) 1 patch TD QAM [facility] Stop: 12/21/21 08:59 Last Admin: 11/26/21 08:10 Dose: 1 patch Documented by: Metoprolol Succinate (Metoprolol Succ 50mg Ext Rel Tab) 100 mg PO BID [facility] Stop: 12/15/21 20:59 Last Admin: 11/26/21 08:09 Dose: 100 mg Documented by: Miscellaneous (Remove Lidoderm Patch) 1 ea N/A DAILY@2100 [facility] Stop: 12/21/21 20:59 Last Admin: 11/25/21 19:45 Dose: 1 ea Documented by: Nitroglycerin (Nitroglycerin Sl 0.4 Mg/Tab Tab) 0.4 mg SL UD PRN PRN Reason: Chest Pain Stop: 12/13/21 05:33 Ondansetron HCl (Ondansetron Inj 2 Mg/Ml 2 Ml Vial) 4 mg IV Q8H PRN PRN Reason: Nausea Stop: 12/14/21 08:45 Last Admin: 11/24/21 23:04 Dose: 4 mg Documented by: Oxycodone HCl (Oxycodone Hcl Ir 5 Mg Tab (Immediate Release)) 5 mg PO Q6H PRN PRN Reason: Pain Stop: 12/03/21 15:26 Last Admin: 11/26/21 05:51 Dose: 5 mg Documented by: Pantoprazole Sodium (Pantoprazole 40 Mg Tab) 40 mg PO DAILY [facility] Stop: 12/13/21 08:59 Last Admin: 11/26/21 08:09 Dose: 40 mg Documented by: Polyethylene Glycol (Polyethylene (Miralax) 17 Gm Pack) 17 gm PO DAILY PRN PRN Reason: Constipation Stop: 12/13/21 05:33 Last Admin: 11/25/21 08:59 Dose: 17 gm Documented by: Ropinirole HCl (Ropinirole Hcl 1 Mg Tablet) 1 mg PO TID [facility] Stop: 12/13/21 08:59 Last Admin: 11/26/21 08:09 Dose: 1 mg Documented by: Ropinirole HCl (Ropinirole Hcl 0.25 Mg Tablet) 0.25 mg PO [facility] Stop: 12/13/21 20:59 Last Admin: 11/25/21 19:46 Dose: 0.25 mg Documented by: Topiramate (Topiramate 100 Mg Tab) 100 mg PO BID [facility] Stop: 12/13/21 08:59 Last Admin: 11/26/21 08:09 Dose: 100 mg Documented by: Tramadol HCl (Tramadol Hcl 50 Mg Tablet) 25 - 50 mg PO Q4H PRN PRN Reason: Pain Stop: 12/15/21 22:43 Last Admin: 11/26/21 04:13 Dose: 50 mg Documented by: Zolpidem Tartrate (Zolpidem Tartrate 10 Mg Tab) 10 mg PO [facility] Stop: 12/19/21 20:59 Last Admin: 11/25/21 21:44 Dose: 10 mg Documented by:
[2021-11-26] MEDS: POLYETHYLENE (MIRALAX) 17 GM PACK PO PRN ×2 (09:05→19:29)
[2021-11-26] MEDS: ACETAMINOPHEN 325 MG TAB PO PRN ×2 (11:55→19:30)
[2021-11-26] MEDS: CYCLOBENZAPRINE HCL 10 MG TAB PO PRN ×2 (11:55→19:29)
[2021-11-26] MEDS: HEPARIN SOD 5,000 UNIT/0.5 ML VIAL SQ SCH ×2 (11:56→22:00)
[2021-11-26] MEDS: ONDANSETRON INJ 2 MG/ML 2 ML VIAL IV PRN (15:49)
[2021-11-26] MEDS: ATORVASTATIN 10 MG TAB PO SCH (19:31)
[2021-11-26] MEDS: DIGOXIN 0.125 MG TAB PO SCH (19:32)
[2021-11-26] MEDS: rOPINIRole HCL 0.25 MG TABLET PO SCH (19:34)
[2021-11-26] MEDS: ZOLPIDEM TARTRATE 10 MG TAB PO SCH (22:00)
[2021-11-27] MEDS: oxyCODONE HCL IR 5 MG TAB (IMMEDIATE RELEASE) PO PRN ×4 (03:29→21:31)
[2021-11-27] MEDS: LEVOTHYROXINE SODIUM 50 MCG TABLET PO SCH (06:24)
[2021-11-27 06:34] LABS: Hematocrit (blood only) 29.5 % (37-47); Hemoglobin 8.9 g/dL (12.0-16.0)
[2021-11-27 06:49] LABS: BUN Creatinine Ratio 32.3 (10-20); Calcium 9.3 mg/dl (8.5-10.1); Creatinine Clr Calc Pharmacy 122.9 ml/min; Est GFR (African American) 114.4 ml/min; Est GFR (Non-African American) 98.7 ml/min; Magnesium 2.1 mg/dl (1.7-2.4); Phosphorus 3.4 mg/dl (2.5-4.9); Potassium 3.8 mmol/L (3.5-5.1)
[2021-11-27] MEDS: TOPIRAMATE 100 MG TAB PO SCH ×2 (08:34→21:21)
[2021-11-27] MEDS: rOPINIRole HCL 1 MG TABLET PO SCH ×3 (08:34→21:20)
[2021-11-27] MEDS: LIDOCAINE 5% 1 PATCH TD SCH (08:34)
[2021-11-27] MEDS: ASPIRIN 81 MG ECTAB PO SCH (08:34)
[2021-11-27] MEDS: DOCUSATE SODIUM 100 MG CAP PO SCH ×2 (08:34→21:19)
[2021-11-27] MEDS: busPIRone 15 MG TAB PO SCH ×2 (08:34→21:18)
[2021-11-27] MEDS: DULoxetine HCL 60 MG CAP PO SCH ×2 (08:34→21:19)
[2021-11-27] MEDS: METOPROLOL SUCC 50MG EXT REL TAB PO SCH ×2 (08:35→21:20)
[2021-11-27] MEDS: PANTOprazole 40 MG TAB PO SCH (08:35)
[2021-11-27] MEDS: HEPARIN SOD 5,000 UNIT/0.5 ML VIAL SQ SCH (12:28)
--- NOTE | 2021-11-27 14:31 | Hospitalist Progress Note ---
Date of Service November 27, 2021 Assessment & Plan (1) Atrial fibrillation with RVR: Plan: Seems to have history of longstanding persistent atrial fibrillation: Rate control Cardiology consulted Amiodarone and cardizem discontinued ECHO showed no LV wall motion abnormality with EF 55-60% cardizem drip stopped IV heparin drip was discontinued due to drop on hemoglobin No anticoagulation (risks greater than the benefit) patient refused any anticoagulant as well Continue metoprolol 100mg BID and digoxin 125mcg Cardiology follow up (outpt) arranged UTI Urine cx grew gram negative bacilli- Klebsiella Resistant to Rocephin completed the course Ertapenem Denied any urinary symptoms Anemia Baseline Hgb btw 8 to 9, current Hgb 8.9 Last colonoscopy was on 08/17- normal. GI recommended 10 yrs follow IV heparin drip discontinued because hgb dropped to 7.3 stable Hyponatremia current Na 130- 131 Possible related to diuretic, psych meds switched lasix 40 from bid to daily (edema also significantly improved), will stop now as no edema consider lasix 3x a week If Na continues to drop will hold lasix and consult nephrology Continue monitor BMP Depression Anxiety Bipolar disorder Denies any suicide ideation Psych consulted - recommended to continue home psych meds 1 to 1 observation discontinued Stable Hypothyroidism TSH 22 Levothyroxine increased to 50mcg Check TSH in 4 to 6 weeks B/L LE edema - resolved Doppler of LE extremity showed no DVT Continued Lasix 40mg BID, then switched to daily BP lower and edema resolved - will hold lasix Hx of PE Pt was on coumadin several years ago Not on any anticoagulant currently Vergara's esophagus Continue omeprazole. Hyperlipidemia: Continue statin. Morbid obesity BMI 51.8 Counseling on weight loss Sleep apnea: Not on any CPAP DVT: SCDs, heparin subq disposition : Waiting for placement Admission and Anticipated Discharge Date Admission Date: November 13, 2021 Subjective Pt was seen in follow of Afib , anxiety Lying in bed in no acute distress , resting comfortably Reports pain in her hip (chronic s/p surgery) Denies any chest pain, palpitation, dizziness, shortness of breath Also denies any abdominal pain nausea vomiting Yesterday she was more teary, as her family does not talk to her -asked psychiatry liaison to reevaluate the patient Review of Systems Review of Systems: All systems reviewed & are unremarkable except as noted in Subjective Physical Exam Physical Exam: General- No acute distress Head- atraumatic Eyes- PERRL, EOMI, ENT- oropharynx clear Neck- supple, no JVD Lungs- clear to auscultation Heart- irregular rhythm; no murmur Abdomen- normal bowel sounds, soft, nontender Extremities- no calf tenderness, no LE edema (significantly improved) Neuro- alert, oriented x 3; PERRL, EOMI; no facial palsy; no dysarthria, moves extremities however pain in R hip w/ movement Skin- warm & dry Results & Data Results & Data ([facility]) Vital Signs (Past 12 Hours) Vital Signs Temp Pulse Resp BP Pulse Ox 11/27/21 07:32 36.9 C 76 20 105/70 94 Laboratory Results 11/27/21 11/27/21 Range/Units 05:56 05:56 Hgb 8.9 L (12.0-16.0) g/dL Hct 29.5 L (37-47) % Sodium 130 L (136-145) mmol/L Potassium 3.8 (3.5-5.1) mmol/L Chloride 96 L (98-107) mmol/L Carbon Dioxide 27 (21-32) mmol/L Anion Gap 7 (3-11) BUN 20 (6-23) mg/dl Creatinine 0.62 (0.6-1.2) mg/dl Est Cr Clr Drug Dosing 122.9 ml/min Est GFR ( Amer) 114.4 ml/min Est GFR (Non-Af Amer) 98.7 ml/min BUN/Creatinine Ratio 32.3 H (10-20) Glucose 131 H (70-99(Fasting)) mg/dl Calcium 9.3 (8.5-10.1) mg/dl Phosphorus 3.4 (2.5-4.9) mg/dl Magnesium 2.1 (1.7-2.4) mg/dl Medications Administered Current Inpatient Medications Acetaminophen (Acetaminophen 325 Mg Tab) 650 mg PO Q4H PRN PRN Reason: Pain or Fever Stop: 12/13/21 05:33 Last Admin: 11/26/21 19:30 Dose: 650 mg Documented by: Aspirin (Aspirin 81 Mg Ectab) 81 mg PO [facility] Stop: 12/13/21 08:59 Last Admin: 11/27/21 08:34 Dose: 81 mg Documented by: Atorvastatin Calcium (Atorvastatin 10 Mg Tab) 10 mg PO [facility] Stop: 12/13/21 20:59 Last Admin: 11/26/21 19:31 Dose: 10 mg Documented by: Buspirone HCl (Buspirone 15 Mg Tab) 15 mg PO BID [facility] Stop: 12/13/21 08:59 Last Admin: 11/27/21 08:34 Dose: 15 mg Documented by: Cyclobenzaprine HCl (Cyclobenzaprine Hcl 10 Mg Tab) 10 mg PO Q8H PRN PRN Reason: MUSCLE SPASMS Stop: 12/13/21 05:33 Last Admin: 11/26/21 19:29 Dose: 10 mg Documented by: Digoxin (Digoxin 0.125 Mg Tab) 0.125 mg PO QPM [facility] Stop: 12/13/21 20:59 Last Admin: 11/26/21 19:32 Dose: 0.125 mg Documented by: Docusate Sodium (Docusate Sodium 100 Mg Cap) 100 mg PO BID [facility] Stop: 12/19/21 20:59 Last Admin: 11/27/21 08:34 Dose: 100 mg Documented by: Duloxetine HCl (Duloxetine Hcl 60 Mg Cap) 60 mg PO BID [facility] Stop: 12/13/21 08:59 Last Admin: 11/27/21 08:34 Dose: 60 mg Documented by: Furosemide (Furosemide 40 Mg Tab) 40 mg PO QAM [facility] Stop: 12/23/21 08:59 Last Admin: 11/24/21 08:07 Dose: 40 mg Documented by: Heparin Sodium (Porcine) (Heparin Sod 5,000 Unit/0.5 Ml Vial) 7,500 units SQ Q12H [facility] Stop: 12/25/21 11:14 Last Admin: 11/27/21 12:28 Dose: 7,500 units Documented by: Levothyroxine Sodium (Levothyroxine Sodium 50 Mcg Tablet) 50 mcg PO DAILYBB [facility] Stop: 12/14/21 06:29 Last Admin: 11/27/21 06:24 Dose: 50 mcg Documented by: Lidocaine (Lidocaine 5% 1 Patch) 1 patch TD QAM [facility] Stop: 12/21/21 08:59 Last Admin: 11/27/21 08:34 Dose: 1 patch Documented by: Metoprolol Succinate (Metoprolol Succ 50mg Ext Rel Tab) 100 mg PO BID [facility] Stop: 12/15/21 20:59 Last Admin: 11/27/21 08:35 Dose: 100 mg Documented by: Miscellaneous (Remove Lidoderm Patch) 1 ea N/A DAILY@2100 [facility] Stop: 12/21/21 20:59 Last Admin: 11/26/21 19:33 Dose: 1 ea Documented by: Nitroglycerin (Nitroglycerin Sl 0.4 Mg/Tab Tab) 0.4 mg SL UD PRN PRN Reason: Chest Pain Stop: 12/13/21 05:33 Ondansetron HCl (Ondansetron Inj 2 Mg/Ml 2 Ml Vial) 4 mg IV Q8H PRN PRN Reason: Nausea Stop: 12/14/21 08:45 Last Admin: 11/26/21 15:49 Dose: 4 mg Documented by: Oxycodone HCl (Oxycodone Hcl Ir 5 Mg Tab (Immediate Release)) 5 mg PO Q4H PRN PRN Reason: Pain Stop: 12/03/21 15:26 Last Admin: 11/27/21 08:42 Dose: 5 mg Documented by: Pantoprazole Sodium (Pantoprazole 40 Mg Tab) 40 mg PO DAILY [facility] Stop: 12/13/21 08:59 Last Admin: 11/27/21 08:35 Dose: 40 mg Documented by: Polyethylene Glycol (Polyethylene (Miralax) 17 Gm Pack) 17 gm PO DAILY PRN PRN Reason: Constipation Stop: 12/13/21 05:33 Last Admin: 11/26/21 19:29 Dose: 17 gm Documented by: Ropinirole HCl (Ropinirole Hcl 1 Mg Tablet) 1 mg PO TID [facility] Stop: 12/13/21 08:59 Last Admin: 11/27/21 08:34 Dose: 1 mg Documented by: Ropinirole HCl (Ropinirole Hcl 0.25 Mg Tablet) 0.25 mg PO HS [facility] Stop: 12/13/21 20:59 Last Admin: 11/26/21 19:34 Dose: 0.25 mg Documented by: Topiramate (Topiramate 100 Mg Tab) 100 mg PO BID [facility] Stop: 12/13/21 08:59 Last Admin: 11/27/21 08:34 Dose: 100 mg Documented by: Tramadol HCl (Tramadol Hcl 50 Mg Tablet) 25 - 50 mg PO Q4H PRN PRN Reason: Pain Stop: 12/15/21 22:43 Last Admin: 11/26/21 04:13 Dose: 50 mg Documented by: Zolpidem Tartrate (Zolpidem Tartrate 10 Mg Tab) 10 mg PO [facility] Stop: 12/19/21 20:59 Last Admin: 11/26/21 22:00 Dose: 10 mg Documented by:
[2021-11-27] MEDS: DIGOXIN 0.125 MG TAB PO SCH (21:18)
[2021-11-27] MEDS: ATORVASTATIN 10 MG TAB PO SCH (21:18)
[2021-11-27] MEDS: rOPINIRole HCL 0.25 MG TABLET PO SCH (21:20)
[2021-11-27] MEDS: ACETAMINOPHEN 325 MG TAB PO PRN (22:32)
[2021-11-27] MEDS: ZOLPIDEM TARTRATE 10 MG TAB PO SCH (22:32)
[2021-11-27] MEDS: CYCLOBENZAPRINE HCL 10 MG TAB PO PRN (22:32)
[2021-11-28] MEDS: LEVOTHYROXINE SODIUM 50 MCG TABLET PO SCH (06:33)
[2021-11-28] MEDS: LIDOCAINE 5% 1 PATCH TD SCH (08:18)
[2021-11-28] MEDS: oxyCODONE HCL IR 5 MG TAB (IMMEDIATE RELEASE) PO PRN ×2 (08:20→14:56)
[2021-11-28] MEDS: ASPIRIN 81 MG ECTAB PO SCH (08:21)
[2021-11-28] MEDS: PANTOprazole 40 MG TAB PO SCH (08:22)
[2021-11-28] MEDS: METOPROLOL SUCC 50MG EXT REL TAB PO SCH ×2 (08:22→22:08)
[2021-11-28] MEDS: DOCUSATE SODIUM 100 MG CAP PO SCH ×2 (08:22→21:57)
[2021-11-28] MEDS: busPIRone 15 MG TAB PO SCH ×2 (08:22→21:55)
[2021-11-28] MEDS: DULoxetine HCL 60 MG CAP PO SCH ×2 (08:22→21:57)
[2021-11-28] MEDS: rOPINIRole HCL 1 MG TABLET PO SCH ×3 (08:23→21:58)
[2021-11-28] MEDS: TOPIRAMATE 100 MG TAB PO SCH ×2 (08:23→21:59)
[2021-11-28] MEDS: POLYETHYLENE (MIRALAX) 17 GM PACK PO PRN (08:58)
--- NOTE | 2021-11-28 08:59 | Hospitalist Progress Note ---
Date of Service November 28, 2021 Assessment & Plan (1) Atrial fibrillation with RVR: Plan: Seems to have history of longstanding persistent atrial fibrillation: Rate control Cardiology consulted Amiodarone and cardizem discontinued ECHO showed no LV wall motion abnormality with EF 55-60% cardizem drip stopped IV heparin drip was discontinued due to drop on hemoglobin No anticoagulation (risks greater than the benefit) patient refused any anticoagulant as well Continue metoprolol 100mg BID and digoxin 125mcg Cardiology follow up (outpt) arranged UTI Urine cx grew gram negative bacilli- Klebsiella Resistant to Rocephin completed the course Ertapenem Denied any urinary symptoms Anemia Baseline Hgb btw 8 to 9, current Hgb 8.9 Last colonoscopy was on 08/17- normal. GI recommended 10 yrs follow IV heparin drip discontinued because hgb dropped to 7.3 Patient reports history of thalassemia stable Hyponatremia current Na 130- 131 Possible related to diuretic, psych meds switched lasix 40 from bid to daily (edema also significantly improved), will stop now as no edema Will cont. w/ lasix 3x a week If Na continues to drop will hold lasix and consult nephrology Continue monitor BMP Depression Anxiety Bipolar disorder Denies any suicide ideation Psych consulted - recommended to continue home psych meds 1 to 1 observation discontinued Stable Hypothyroidism TSH 22 Levothyroxine increased to 50mcg Check TSH in 4 to 6 weeks B/L LE edema - resolved Doppler of LE extremity showed no DVT Continued Lasix 40mg BID, then switched to daily BP lower and edema resolved - will hold lasix Right hip pain -Patient reports that she had both hip replaced in [place] several months ago -She had a fall in September and was seen by her surgeon for that, she reports there was nothing to do -Hip x-ray was obtained here, and reviewed -Patient continues to have pain, will obtain hip CT -Continue pain management Hx of PE Pt was on coumadin several years ago Not on any anticoagulant currently Vergara's esophagus Continue omeprazole. Hyperlipidemia: Continue statin. Morbid obesity BMI 51.8 Counseling on weight loss Sleep apnea: Not on any CPAP DVT: SCDs, heparin subq disposition : Waiting for placement Admission and Anticipated Discharge Date Admission Date: November 13, 2021 Subjective Pt was seen in follow of Afib , anxiety Lying in bed in no acute distress , resting comfortably Reports pain in her hip (chronic s/p surgery) -patient says that she had a fall in September, and image of her R hip was reviewed by her surgeon in [place]. She was told nothing to do. However she continues to have pain. Denies any chest pain, palpitation, dizziness, shortness of breath Also denies any abdominal pain nausea vomiting Review of Systems Review of Systems: All systems reviewed & are unremarkable except as noted in Subjective Physical Exam Physical Exam: General- No acute distress Head- atraumatic Eyes- PERRL, EOMI, ENT- oropharynx clear Neck- supple, no JVD Lungs- clear to auscultation Heart- irregular rhythm; no murmur Abdomen- normal bowel sounds, soft, nontender Extremities- no calf tenderness, no LE edema (significantly improved) Neuro- alert, oriented x 3; PERRL, EOMI; no facial palsy; no dysarthria, moves extremities however pain in R hip w/ movement Skin- warm & dry Results & Data Results & Data ([facility]) Vital Signs (Past 12 Hours) Vital Signs Temp Pulse Pulse Resp BP BP Pulse Ox 11/28/21 07:23 36.9 C 64 20 105/75 96 11/27/21 21:18 76 11/27/21 21:12 36.9 C 76 14 111/64 95 Medications Administered Current Inpatient Medications Acetaminophen (Acetaminophen 325 Mg Tab) 650 mg PO Q4H PRN PRN Reason: Pain or Fever Stop: 12/13/21 05:33 Last Admin: 11/27/21 22:32 Dose: 650 mg Documented by: Aspirin (Aspirin 81 Mg Ectab) 81 mg PO QAM [facility] Stop: 12/13/21 08:59 Last Admin: 11/28/21 08:21 Dose: 81 mg Documented by: Atorvastatin Calcium (Atorvastatin 10 Mg Tab) 10 mg PO HS [facility] Stop: 12/13/21 20:59 Last Admin: 11/27/21 21:18 Dose: 10 mg Documented by: Buspirone HCl (Buspirone 15 Mg Tab) 15 mg PO BID [facility] Stop: 12/13/21 08:59 Last Admin: 11/28/21 08:22 Dose: 15 mg Documented by: Cyclobenzaprine HCl (Cyclobenzaprine Hcl 10 Mg Tab) 10 mg PO Q8H PRN PRN Reason: MUSCLE SPASMS Stop: 12/13/21 05:33 Last Admin: 11/27/21 22:32 Dose: 10 mg Documented by: Digoxin (Digoxin 0.125 Mg Tab) 0.125 mg PO QPM [facility] Stop: 12/13/21 20:59 Last Admin: 11/27/21 21:18 Dose: 0.125 mg Documented by: Docusate Sodium (Docusate Sodium 100 Mg Cap) 100 mg PO BID [facility] Stop: 12/19/21 20:59 Last Admin: 11/28/21 08:22 Dose: 100 mg Documented by: Duloxetine HCl (Duloxetine Hcl 60 Mg Cap) 60 mg PO BID [facility] Stop: 12/13/21 08:59 Last Admin: 11/28/21 08:22 Dose: 60 mg Documented by: Furosemide (Furosemide 40 Mg Tab) 40 mg PO QAM [facility] Stop: 12/23/21 08:59 Last Admin: 11/24/21 08:07 Dose: 40 mg Documented by: Heparin Sodium (Porcine) (Heparin Sod 5,000 Unit/0.5 Ml Vial) 7,500 units SQ Q12H [facility] Stop: 12/25/21 11:14 Last Admin: 11/27/21 12:28 Dose: 7,500 units Documented by: Levothyroxine Sodium (Levothyroxine Sodium 50 Mcg Tablet) 50 mcg PO DAILYBB [facility] Stop: 12/14/21 06:29 Last Admin: 11/28/21 06:33 Dose: 50 mcg Documented by: Lidocaine (Lidocaine 5% 1 Patch) 1 patch TD QAM [facility] Stop: 12/21/21 08:59 Last Admin: 11/28/21 08:18 Dose: 1 patch Documented by: Metoprolol Succinate (Metoprolol Succ 50mg Ext Rel Tab) 100 mg PO BID [facility] Stop: 12/15/21 20:59 Last Admin: 11/28/21 08:22 Dose: 100 mg Documented by: Miscellaneous (Remove Lidoderm Patch) 1 ea N/A DAILY@2100 [facility] Stop: 12/21/21 20:59 Last Admin: 11/27/21 21:20 Dose: 1 ea Documented by: Nitroglycerin (Nitroglycerin Sl 0.4 Mg/Tab Tab) 0.4 mg SL UD PRN PRN Reason: Chest Pain Stop: 12/13/21 05:33 Ondansetron HCl (Ondansetron Inj 2 Mg/Ml 2 Ml Vial) 4 mg IV Q8H PRN PRN Reason: Nausea Stop: 12/14/21 08:45 Last Admin: 11/26/21 15:49 Dose: 4 mg Documented by: Oxycodone HCl (Oxycodone Hcl Ir 5 Mg Tab (Immediate Release)) 5 mg PO Q4H PRN PRN Reason: Pain Stop: 12/03/21 15:26 Last Admin: 11/28/21 08:20 Dose: 5 mg Documented by: Pantoprazole Sodium (Pantoprazole 40 Mg Tab) 40 mg PO DAILY [facility] Stop: 12/13/21 08:59 Last Admin: 11/28/21 08:22 Dose: 40 mg Documented by: Polyethylene Glycol (Polyethylene (Miralax) 17 Gm Pack) 17 gm PO DAILY PRN PRN Reason: Constipation Stop: 12/13/21 05:33 Last Admin: 11/26/21 19:29 Dose: 17 gm Documented by: Ropinirole HCl (Ropinirole Hcl 1 Mg Tablet) 1 mg PO TID [facility] Stop: 12/13/21 08:59 Last Admin: 11/28/21 08:23 Dose: 1 mg Documented by: Ropinirole HCl (Ropinirole Hcl 0.25 Mg Tablet) 0.25 mg PO HS [facility] Stop: 12/13/21 20:59 Last Admin: 11/27/21 21:20 Dose: 0.25 mg Documented by: Topiramate (Topiramate 100 Mg Tab) 100 mg PO BID [facility] Stop: 12/13/21 08:59 Last Admin: 11/28/21 08:23 Dose: 100 mg Documented by: Tramadol HCl (Tramadol Hcl 50 Mg Tablet) 25 - 50 mg PO Q4H PRN PRN Reason: Pain Stop: 12/15/21 22:43 Last Admin: 11/26/21 04:13 Dose: 50 mg Documented by: Zolpidem Tartrate (Zolpidem Tartrate 10 Mg Tab) 10 mg PO HS [facility] Stop: 12/19/21 20:59 Last Admin: 11/27/21 22:32 Dose: 10 mg Documented by:
--- NOTE | 2021-11-28 16:02 | CT Scan Report ---
CT hip RT wo con HISTORY: 61 years-old Female persistent pain, s/p fall in September subacute right hip pain with prior f all COMPARISON: Pelvis radiograph 03/23/2016, CT abdomen and pelvis 05/26/2015. TECHNIQUE: Multiple axial CT images of the right hip were obtained without the use of IV contrast. A dose lowering technique was used consistent with the principals of ALARA. FINDINGS: Nonspecific right iliac chain, pelvic sidewall and right inguinal chain adenopathy includes iliac vish in lymph nodes measuring up to 1.7 cm. Distended urinary bladder with mild wall thickening. Moderate fecal retention. Mild atrophy of the right gluteal musculature. Right hip total joint arthroplasty. No acute fracture identified. Heterotopic curvilinear ossificatio ns are noted adjacent to the lesser trochanter. Chronic fractures are noted involving the posterior, medial and posterolateral acetabulum. 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 There is osteolysis surrounding the posterior superior acetabular s crew. No acute periprosthetic fracture identified. The imaged right hemipelvis appears intact. IMPRESSION: 1. Right hip total joint arthroplasty with evidence of hardware loosening involving the acetabular cu p and acetabular fixation screws. 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 2. No acute fracture identified. 3. Pathologically enlarged right iliac chain, pelvic sidewall and right inguinal lymph nodes. ACT 112: Negative or not required by law. The above report was generated using voice recognition software. It may contain grammatical, syntax o r spelling errors. Dictated: 11/28/2021 3:05 PM Transcribed: 11/28/2021 3:53 PM Estefanía [id number] [email or web address] Electronically signed by: Nelson Hernández M.D. 11/28/2021 4:00 PM
[2021-11-28] MEDS: ACETAMINOPHEN 325 MG TAB PO PRN ×2 (16:42→21:59)
[2021-11-28] MEDS: CYCLOBENZAPRINE HCL 10 MG TAB PO PRN (16:42)
[2021-11-28] MEDS: ONDANSETRON INJ 2 MG/ML 2 ML VIAL IV PRN (16:52)
[2021-11-28] MEDS: ATORVASTATIN 10 MG TAB PO SCH (21:55)
[2021-11-28] MEDS: DIGOXIN 0.125 MG TAB PO SCH (21:56)
[2021-11-28] MEDS: rOPINIRole HCL 0.25 MG TABLET PO SCH (21:58)
[2021-11-28] MEDS: ZOLPIDEM TARTRATE 10 MG TAB PO SCH (22:00)
[2021-11-29] MEDS: oxyCODONE HCL IR 5 MG TAB (IMMEDIATE RELEASE) PO PRN ×4 (01:30→18:16)
[2021-11-29] MEDS: LEVOTHYROXINE SODIUM 50 MCG TABLET PO SCH (05:38)
[2021-11-29] MEDS: ASPIRIN 81 MG ECTAB PO SCH (08:37)
[2021-11-29] MEDS: DOCUSATE SODIUM 100 MG CAP PO SCH ×2 (08:38→21:21)
[2021-11-29] MEDS: busPIRone 15 MG TAB PO SCH ×2 (08:38→21:19)
[2021-11-29] MEDS: DULoxetine HCL 60 MG CAP PO SCH ×2 (08:38→21:21)
[2021-11-29] MEDS: METOPROLOL SUCC 50MG EXT REL TAB PO SCH ×2 (08:38→21:21)
[2021-11-29] MEDS: LIDOCAINE 5% 1 PATCH TD SCH (08:39)
[2021-11-29] MEDS: rOPINIRole HCL 1 MG TABLET PO SCH ×3 (08:39→21:22)
[2021-11-29] MEDS: PANTOprazole 40 MG TAB PO SCH (08:39)
[2021-11-29] MEDS: TOPIRAMATE 100 MG TAB PO SCH ×2 (08:40→21:23)
[2021-11-29] MEDS: POLYETHYLENE (MIRALAX) 17 GM PACK PO PRN (08:44)
[2021-11-29 08:52] LABS: Hematocrit (blood only) 30.4 % (37-47); Hemoglobin 9.3 g/dL (12.0-16.0); Mean Corpuscular Hemoglobin 17.1 pg (25-34); Mean Corpuscular Hgb Conc 30.6 g/dL (32-36); Mean Corpuscular Volume 55.9 fL (80-100); Mean Platelet Volume 9.1 fL (7.4-10.4); Nucleated RBC # (auto) 0.03 K/uL (0-0); Nucleated RBC % (auto) 0.4 %; Platelet Count 604 K/uL (130-400); RDW Coefficient of Variation 17.4 % (11.5-14.5); RDW Standard Deviation 34.7 fL (36.4-46.3); Red Blood Count 5.44 M/uL (4.2-5.4); White Blood Count 7.63 K/uL (4.8-10.8)
[2021-11-29 09:11] LABS: BUN Creatinine Ratio 31.3 (10-20); Calcium 9.4 mg/dl (8.5-10.1); Creatinine Clr Calc Pharmacy 119.1 ml/min; Est GFR (African American) 113.2 ml/min; Est GFR (Non-African American) 97.7 ml/min; Magnesium 2.1 mg/dl (1.7-2.4); Potassium 4.3 mmol/L (3.5-5.1)
[2021-11-29] MEDS: CYCLOBENZAPRINE HCL 10 MG TAB PO PRN ×2 (10:45→18:17)
[2021-11-29] MEDS: ONDANSETRON INJ 2 MG/ML 2 ML VIAL IV PRN (15:10)
--- NOTE | 2021-11-29 17:03 | Orthopedic Consultation ---
Date of Consultation November 29, 2021 Assessment & Plan (1) Right hip pain: Discussed case with Dr. Bailey. Patient will need to follow-up as an outpatient at [facility] or [place] to see an orthopaedic total Joints specialist about getting a revision arthroplasty for her right hip. She will need to be medically cleared by PCP and cardiology prior to revision. Pain control per medicine service Case management evaluation for placement or possible transfer Ice DVT prophylaxis per medicine service May safely WBAT with walker Supervising Physician Co-Signing Physician Notes I saw and examined the patient and agree with the above note. X-rays and CT scan show lucencies around her acetabular component concerning for loosening, likely aseptic given her current clinical picture, but indolent infection is possible given her history. I performed the substantive portion of this visit, including history, exam, and review of imaging studies. History of Present Illness Reason for Consultation: Right hip pain (loose orthopedic hardware) Requesting Physician: Misha Bailey MD Attending Physician: Rosette Leonard MD History of Present Illness This 61-year-old female seen today in consultation for right hip pain. Patient states she fell back on September 30 and had pain in her hip. She states that since that time she has been wheelchair-bound. Patient was admitted back on September 13 for mental health evaluation and atrial fibrillation. She states that a few days ago after speaking with the medicine service she advised him that her hip ended hurting. She had x-rays performed and a CT that showed loosening of the acetabular cup as well as the acetabular screws. She states that she decided to say something because she is unable to lift her leg off the bed and that her symptoms have not improved. Patient was seen and examined on the floor. She reports she had 4 surgeries on her right hip, all done in [place] by a Dr. Dc. The first was a hip replacement. This got infected, so her second surgery was a wash-out. This didn't eradicate the infection, so her third surgery was removal of implants and placement of antibiotic spacer. Fourth surgery was re-implantation. She says her hip has never "been right" but was tolerable before she fell in September. Has not had fevers/chills, no wound drainage or redness. Allergies Allergy/AdvReac Type Severity Reaction Status Date / Time hylan G-F 20 Allergy Severe CAN'T Verified 11/12/21 23:16 REMEMBER mushroom Allergy Intermediate RASH Verified 11/12/21 23:16 Home Medications Medication Instructions Recorded Confirmed Type amiodarone 200 mg tablet 200 mg PO DAILY 11/12/21 11/12/21 History atorvastatin 10 mg tablet 10 mg PO HS 11/12/21 11/12/21 History buspirone 10 mg tablet 10 mg PO Q12H 11/12/21 11/12/21 History buspirone 15 mg tablet 15 mg PO BID 11/12/21 11/12/21 History buspirone 5 mg tablet 10 mg PO BID 11/12/21 11/12/21 History cyclobenzaprine 10 mg tablet 10 mg PO Q8H PRN 11/12/21 11/12/21 History diclofenac sodium 25 mg 25 mg PO TID PRN 11/12/21 11/12/21 History tablet,delayed release digoxin 125 mcg (0.125 mg) tablet 125 mcg PO QPM 11/12/21 11/12/21 History diltiazem HCl 30 mg tablet 30 mg PO TID 11/12/21 11/12/21 History duloxetine 60 mg capsule,delayed 60 mg PO BID 11/12/21 11/12/21 History release sprinkle furosemide 20 mg tablet (Lasix) 20 mg PO BID 11/12/21 11/12/21 History levothyroxine 25 mcg tablet 25 mcg PO DAILY 11/12/21 11/12/21 History metoprolol tartrate 50 mg tablet 50 mg PO BID 11/12/21 11/12/21 History omeprazole 20 mg tablet,delayed 40 mg PO DAILY 11/12/21 11/12/21 History release pantoprazole 40 mg tablet,delayed 40 mg PO DAILY 11/12/21 11/12/21 History release ropinirole 0.25 mg tablet 0.25 mg PO HS 11/12/21 11/12/21 History ropinirole 1 mg tablet 1 mg PO TID 11/12/21 11/12/21 History topiramate 100 mg tablet 100 mg PO BID 11/12/21 11/12/21 History tramadol 50 mg tablet 50 mg PO DIRECTED PRN 11/12/21 11/12/21 History zolpidem 6.25 mg tablet,extended 6.25 mg PO HS 11/12/21 11/12/21 History release,multiphase (Ambien CR) Patient History Social History Smoking Status: Never smoker Hx Alcohol Use: No Hx Substance Use: Yes Last Used Substance Other:: 30 years ago Preferred Language: Estonian Communication Ability: [employer] Required: No Beliefs That Will Affect Care: None marital status: Current Living Situation: Homeless How many Children do You have: 3 Feels Safe at Home: Yes Safety Concerns: Feels Safe At This Time Assistive Devices: Walker and Wheelchair Review of Systems Review of Systems: All systems reviewed & are unremarkable except as noted in Subjective Physical Exam Physical Exam: Right hip: Skin shows 6 x 5 cm area of abnormal scar toward the distal 1/3 of the incision for a posterior approach to the hip. Flexion is limited to about 60 degrees. Logroll test is positive. Patient is unable to perform an active straight leg raise test. Light passive internal and external rotation causes referred pain to the groin. Patient has tenderness to palpation in the groin area. Passive straight leg raise test test also causes referred pain to the groin area. Patient is neurovascularly intact. She is able to actively dorsi and plantarflex foot without difficulty. Her calf soft supple nontender to palpation. She is nonambulatory. Results & Data ([facility]) Vital Signs (Past 12 Hours) Vital Signs Temp Pulse Resp BP Pulse Ox 11/29/21 07:44 36.8 C 80 16 102/66 96 Diagnostic Findings Laboratory Results WBC 7.63 K/uL (4.8-10.8) 11/29/21 08:33 RBC 5.44 M/uL (4.2-5.4) H 11/29/21 08:33 Hgb 9.3 g/dL (12.0-16.0) L 11/29/21 08:33 Hct 30.4 % (37-47) L 11/29/21 08:33 MCV 55.9 fL (80-100) L 11/29/21 08:33 MCH 17.1 pg (25-34) L 11/29/21 08:33 MCHC 30.6 g/dL (32-36) L 11/29/21 08:33 RDW Std Deviation 34.7 fL (36.4-46.3) L 11/29/21 08:33 RDW Coeff of Fredrick 17.4 % (11.5-14.5) H 11/29/21 08:33 Plt Count 604 K/uL (130-400) H 11/29/21 08:33 MPV 9.1 fL (7.4-10.4) 11/29/21 08:33 Immature Gran % (Auto) 0.3 % 11/14/21 06:09 Neut % (Auto) 65.4 % 11/14/21 06:09 Lymph % (Auto) 18.8 % 11/14/21 06:09 Tucker % (Auto) 11.4 % 11/14/21 06:09 Eos % (Auto) 3.8 % 11/14/21 06:09 Baso % (Auto) 0.3 % 11/14/21 06:09 Neut # (Auto) 4.96 K/uL (1.4-6.5) 11/14/21 06:09 Lymph # (Auto) 1.42 K/uL (1.2-3.4) 11/14/21 06:09 Tucker # (Auto) 0.86 K/uL (0.11-0.59) H 11/14/21 06:09 Eos # (Auto) 0.29 K/uL (0-0.5) 11/14/21 06:09 Baso # (Auto) 0.02 K/uL (0-0.2) 11/14/21 06:09 Immature Gran # (Auto) 0.02 K/uL (0.00-0.02) 11/14/21 06:09 Absolute Nucleated RBC 0.03 K/uL (0-0) H 11/29/21 08:33 Nucleated RBC % (auto) 0.4 % 11/29/21 08:33 Polychromasia 1+ 11/14/21 06:09 Hypochromasia Present 11/14/21 06:09 Poikilocytosis Present 11/13/21 07:17 Microcytosis Present 11/14/21 06:09 Target Cells 1+ 11/14/21 06:09 Schistocytes 1+ 11/14/21 06:09 PT 10.4 Seconds (9.0-12.0) 11/13/21 02:04 INR 1.0 (0.9-1.1) 11/13/21 02:04 APTT 26.6 Seconds (21.0-31.0) 11/13/21 02:04 PTT Ratio 1.0 11/13/21 02:04 Sodium 131 mmol/L (136-145) L 11/29/21 08:33 Potassium 4.3 mmol/L (3.5-5.1) 11/29/21 08:33 Chloride 99 mmol/L (98-107) 11/29/21 08:33 Carbon Dioxide 27 mmol/L (21-32) 11/29/21 08:33 Anion Gap 5 (3-11) 11/29/21 08:33 BUN 20 mg/dl (6-23) 11/29/21 08:33 Creatinine 0.64 mg/dl (0.6-1.2) 11/29/21 08:33 Est Cr Clr Drug Dosing 119.1 ml/min 11/29/21 08:33 Est GFR ( Amer) 113.2 ml/min 11/29/21 08:33 Est GFR (Non-Af Amer) 97.7 ml/min 11/29/21 08:33 BUN/Creatinine Ratio 31.3 (10-20) H 11/29/21 08:33 Glucose 106 mg/dl (70-99(Fasting)) H 11/29/21 08:33 POC Glucose 82 mg/dl (70-99) 11/13/21 08:44 Estimat Average Glucose 140 mg/dl 11/13/21 07:17 Hemoglobin A1c 6.5 % (4.5-5.6) H 11/13/21 07:17 Calcium 9.4 mg/dl (8.5-10.1) 11/29/21 08:33 Phosphorus 4.0 mg/dl (2.5-4.9) 11/29/21 08:33 Magnesium 2.1 mg/dl (1.7-2.4) 11/29/21 08:33 Iron 15 mcg/dl (35-150) L 11/13/21 07:17 TIBC 205 mcg/dl (250-450) L 11/13/21 07:17 Unsaturated IBC 190 mcg/dl (155-355) 11/13/21 07:17 Transferrin % Sat 7 % (15-50) L 11/13/21 07:17 Total Bilirubin 0.5 mg/dl (0.2-1.0) 11/12/21 23:04 AST 11 U/L (13-39) L 11/12/21 23:04 ALT 9 U/L (7-52) 11/12/21 23:04 Alkaline Phosphatase 166 U/L (34-104) H 11/12/21 23:04 Troponin I High Sens 3.5 pg/ml (0-14) 11/13/21 19:34 Total Protein 8.5 gm/dl (6.0-8.3) H 11/12/21 23:04 Albumin 3.4 gm/dl (3.4-5.0) 11/12/21 23:04 Globulin 5.1 gm/dl (2.5-4.0) H 11/12/21 23:04 Albumin/Globulin Ratio 0.7 (0.9-2) L 11/12/21 23:04 Vitamin B12 677 pg/ml (180-914) 11/13/21 07:17 Folate 15.45 ng/ml (>5.38) 11/13/21 07:17 TSH 22.686 uIu/ml (0.300-4.500) H 11/13/21 07:17 Free T4 0.39 ng/dl (0.61-1.60) L 11/12/21 23:04 Urine Color Yellow 11/12/21 22:38 Urine Appearance Clear (Clear) 11/12/21 22:38 Urine pH 8.5 (4.5-7.5) H 11/12/21 22:38 Ur Specific Murphys 1.008 (1.000-1.030) 11/12/21 22:38 Urine Protein Negative (Negative) 11/12/21 22:38 Urine Glucose (UA) Negative (Negative) 11/12/21 22:38 Urine Ketones Negative (Negative) 11/12/21 22:38 Urine Blood Negative (Negative) 11/12/21 22:38 Urine Nitrite Negative (Negative) 11/12/21 22:38 Urine Bilirubin Negative (Negative) 11/12/21 22:38 Urine Urobilinogen Negative (Negative) 11/12/21 22:38 Ur Leukocyte Esterase 3+ (Negative) H 11/12/21 22:38 Urine WBC (Auto) 10-30 /hpf (0-5) H 11/12/21 22:38 Urine RBC (Auto) 0-4 /hpf (0-4) 11/12/21 22:38 U Hyaline Cast (Auto) 1-5 /lpf (0-5) 11/12/21 22:38 U Epithel Cells (Auto) 0-5 /lpf (0-5) 11/12/21 22:38 Urine Bacteria (Auto) 2+ (Negative) H 11/12/21 22:38 Salicylates < 3.0 mg/dl (3.0-30) L 11/12/21 23:04 Urine Opiates Screen Pos (Neg) H 11/12/21 22:38 U Codeine Confrm GC/MS NEGATIVE ng/mL (<50) 11/12/21 22:38 Ur Morphine (GC/MS) 362 ng/mL (<50) H 11/12/21 22:38 Ur Hydrocodone (GC/MS) NEGATIVE ng/mL (<50) 11/12/21 22:38 Ur Norhydrocodone NEGATIVE ng/mL (<50) 11/12/21 22:38 Ur Noroxycodone NEGATIVE ng/mL (<50) 11/12/21 22:38 Urine Oxycodone (GC/MS) NEGATIVE ng/mL (<50) 11/12/21 22:38 U Oxymorphone GC/MS NEGATIVE ng/mL (<50) 11/12/21 22:38 Ur Methadone, Qual Neg (Neg) 11/12/21 22:38 Ur Hydromorphone (GC/MS) NEGATIVE ng/mL (<50) 11/12/21 22:38 Acetaminophen < 3 ug/ml (10-30) L 11/12/21 23:04 Urine Barbiturates Neg (Neg) 11/12/21 22:38 Ur Phencyclidine (PCP) Neg (Neg) 11/12/21 22:38 U Amphetamin/Meth Scrn Neg (Neg) 11/12/21 22:38 MDMA (Ecstasy) Screen Neg (Neg) 11/12/21 22:38 U Benzodiazepines Scrn Neg (Neg) 11/12/21 22:38 Ur Cocaine Metabolite Neg (Neg) 11/12/21 22:38 U Marijuana (THC) Screen Neg (Neg) 11/12/21 22:38 Drug Screen Comment SEE NOTE 11/12/21 22:38 Ethyl Alcohol mg/dL < 10.0 mg/dl (<10.0) 11/12/21 23:04 SARS-CoV-2, RNA, NAAT NEGATIVE (NEGATIVE) 11/12/21 23:43 Impressions Chest X-Ray 11/12/21 22:56 XR chest 1V portable HISTORY: 61 years-old Female Chest Pain . Acute atypical chest pain COMPARISON: Chest radiograph 11/03/2021 TECHNIQUE: Portable AP view of the chest FINDINGS: The cardiac silhouette is enlarged. Pulmonary vascular congestion with interstitial coarsening. No pneumothorax or large pleural effusion. Degenerative changes of the shoulders and spine. IMPRESSION: Cardiomegaly with pulmonary vascular congestion and mild interstitial coarsening which may represent developing pulmonary edema. ACT 112: Negative or not required by law. The above report was generated using voice recognition software. It may contain grammatical, syntax or spelling errors. Electronically signed by: Nelson Hernández M.D. 11/13/2021 9:31 AM Venous Doppler Study 11/12/21 23:09 RIGHT LOWER EXTREMITY VENOUS DOPPLER CLINICAL HISTORY: R LE swelling eval DVT COMPARISON STUDY: Bilateral lower extremity venous Doppler ultrasound February 28, 2013. TECHNIQUE: Sonography of the deep venous system of the right lower extremity was performed. Compression and augmentation were evaluated. FINDINGS: This exam is compromised by suboptimal penetration, particularly affecting visualization of the calf vessels given edema. The right common femoral, superficial femoral and popliteal veins were compressible. Augmentation was normal. Flow was shown within the deep calf vessels. IMPRESSION: 1. Technically difficult exam but no evidence of deep venous thrombus within the right lower extremity. 2. Right calf edema, a nonspecific finding. No discrete fluid collection. ACT 112: Negative or not required by law. Electronically signed by: Apolinar Mendoza M.D. 11/13/2021 7:[address] 11/28/21 12:36 CT hip RT wo con HISTORY: 61 years-old Female persistent pain, s/p fall in September subacute right hip pain with prior fall COMPARISON: Pelvis radiograph 03/23/2016, CT abdomen and pelvis 05/26/2015. TECHNIQUE: Multiple axial CT images of the right hip were obtained without the use of IV contrast. A dose lowering technique was used consistent with the principals of NOMI. FINDINGS: Nonspecific right iliac chain, pelvic sidewall and right inguinal chain adenopathy includes iliac chain lymph nodes measuring up to 1.7 cm. Distended urinary bladder with mild wall thickening. Moderate fecal retention. Mild a trophy of the right gluteal musculature. Right hip total joint arthroplasty. No acute fracture identified. Heterotopic curvilinear ossifications are noted adjacent to the lesser trochanter. Chronic fractures are noted involving the posterior, medial and posterolateral acetabulum. Acetabular protrusio with lucency surrounding the acetabular cup and acetabular fixation screws. There is osteolysis surrounding the posterior superior acetabular screw. No acute periprosthetic fracture identified. The imaged right hemipelvis appears intact. IMPRESSION: 1. Right hip total joint arthroplasty with evidence of hardware loosening involving the acetabular cup and acetabular fixation screws. 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 2. No acute fracture identified. 3. Pathologically enlarged right iliac chain, pelvic sidewall and right inguinal lymph nodes. ACT 112: Negative or not required by law. The above report was generated using voice recognition software. It may contain grammatical, syntax or spelling errors. Dictated: 11/28/2021 3:05 PM Transcribed: 11/28/2021 3:53 PM Estefanía [id number] [email or web address] Electronically signed by: Nelson Hernández M.D. 11/28/2021 4:00 PM
[2021-11-29] MEDS: ATORVASTATIN 10 MG TAB PO SCH (21:19)
[2021-11-29] MEDS: DIGOXIN 0.125 MG TAB PO SCH (21:20)
[2021-11-29] MEDS: rOPINIRole HCL 0.25 MG TABLET PO SCH (21:22)
[2021-11-29] MEDS: ZOLPIDEM TARTRATE 10 MG TAB PO SCH (21:29)
[2021-11-29] MEDS: ACETAMINOPHEN 325 MG TAB PO PRN (21:29)
--- NOTE | 2021-11-29 23:57 | Hospitalist Progress Note ---
Date of Service November 29, 2021 Assessment & Plan (1) Atrial fibrillation with RVR: Plan: Seems to have history of longstanding persistent atrial fibrillation: Rate control Cardiology consulted Amiodarone and cardizem discontinued ECHO showed no LV wall motion abnormality with EF 55-60% cardizem drip stopped IV heparin drip was discontinued due to drop on hemoglobin No anticoagulation (risks greater than the benefit) patient refused any anticoagulant as well Continue metoprolol 100mg BID and digoxin 125mcg Cardiology follow up (outpt) arranged UTI Urine cx grew gram negative bacilli- Klebsiella Resistant to Rocephin completed the course Ertapenem Denied any urinary symptoms Anemia Baseline Hgb btw 8 to 9, current Hgb 9.3 Last colonoscopy was on 08/17- normal. GI recommended 10 yrs follow IV heparin drip discontinued because hgb dropped to 7.3 Patient reports history of thalassemia stable Hyponatremia current Na 130- 131 Possible related to diuretic, psych meds switched lasix 40 from bid to daily (edema also significantly improved), will stop now as no edema Will cont. w/ lasix 3x a week If Na continues to drop will hold lasix and consult nephrology Continue monitor BMP Depression Anxiety Bipolar disorder Denies any suicide ideation Psych consulted - recommended to continue home psych meds 1 to 1 observation discontinued Stable Hypothyroidism TSH 22 Levothyroxine increased to 50mcg Check TSH in 4 to 6 weeks B/L LE edema - resolved Doppler of LE extremity showed no DVT Continued Lasix 40mg BID, then switched to daily BP lower and edema resolved - will hold lasix Right hip pain -Patient reports that she had both hip replaced in [place] several months ago -She had a fall in September and was seen by her surgeon for that, she reports there was nothing to do -Hip x-ray was obtained here, and reviewed CT right hip showed Right hip total joint arthroplasty with evidence of hardware loosening involving the acetabular cup and acetabular fixation screws. 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 Ortho consulted recommended if a revision arthroplasty needs to be performed it would need to be done at a tertiary care facility due to the patient's underlying health issues. Will discuss with ortho if pt needs to be transfer now for the revision -Continue pain management Follow up with ortho in 2 weeks Hx of PE Pt was on coumadin several years ago Not on any anticoagulant currently Vergara's esophagus Continue omeprazole. Hyperlipidemia: Continue statin. Morbid obesity BMI 51.8 Counseling on weight loss Sleep apnea: Not on any CPAP DVT: SCDs, heparin subq disposition : Waiting for placement Admission and Anticipated Discharge Date Admission Date: November 13, 2021 Subjective Pt was seen and examined for follow up of right hip pain and anxiety Lying in bed with no acute distress She said that she continues to have pain in her right hip Denies any chest pain, palpitation, dizziness and fever Review of Systems Review of Systems: All systems reviewed & are unremarkable except as noted in Subjective Physical Exam Physical Exam: General- No acute distress Head- atraumatic Eyes- PERRL, EOMI, ENT- oropharynx clear Neck- supple, no JVD Lungs- clear to auscultation Heart- irregular rhythm; no murmur Abdomen- normal bowel sounds, soft, nontender Extremities- no calf tenderness, +edema Neuro- alert, oriented x 3; PERRL, EOMI; no facial palsy; no dysarthria Skin- warm & dry Results & Data Results & Data ([facility]) Vital Signs (Past 12 Hours) Vital Signs Temp Pulse Pulse Resp BP Pulse Ox 11/29/21 21:20 82 11/29/21 21:13 36.7 C 82 14 124/65 97
[2021-11-30] MEDS: oxyCODONE HCL IR 5 MG TAB (IMMEDIATE RELEASE) PO PRN ×3 (03:18→17:32)
[2021-11-30] MEDS: LEVOTHYROXINE SODIUM 50 MCG TABLET PO SCH (06:38)
[2021-11-30] MEDS: ASPIRIN 81 MG ECTAB PO SCH (08:31)
[2021-11-30] MEDS: CYCLOBENZAPRINE HCL 10 MG TAB PO PRN ×2 (08:31→20:48)
[2021-11-30] MEDS: DOCUSATE SODIUM 100 MG CAP PO SCH ×2 (08:32→20:35)
[2021-11-30] MEDS: DULoxetine HCL 60 MG CAP PO SCH ×2 (08:32→20:35)
[2021-11-30] MEDS: busPIRone 15 MG TAB PO SCH ×2 (08:32→20:38)
[2021-11-30] MEDS: METOPROLOL SUCC 50MG EXT REL TAB PO SCH ×2 (08:33→20:35)
[2021-11-30] MEDS: LIDOCAINE 5% 1 PATCH TD SCH (08:33)
[2021-11-30] MEDS: PANTOprazole 40 MG TAB PO SCH (08:33)
[2021-11-30] MEDS: rOPINIRole HCL 1 MG TABLET PO SCH ×3 (08:34→20:37)
[2021-11-30] MEDS: TOPIRAMATE 100 MG TAB PO SCH ×2 (08:34→20:36)
[2021-11-30] MEDS: POLYETHYLENE (MIRALAX) 17 GM PACK PO PRN (08:40)
[2021-11-30] MEDS: ONDANSETRON INJ 2 MG/ML 2 ML VIAL IV PRN (15:19)
[2021-11-30] MEDS: ACETAMINOPHEN 325 MG TAB PO PRN ×2 (15:29→20:47)
[2021-11-30] MEDS: rOPINIRole HCL 0.25 MG TABLET PO SCH (20:37)
[2021-11-30] MEDS: ATORVASTATIN 10 MG TAB PO SCH (20:37)
[2021-11-30] MEDS: DIGOXIN 0.125 MG TAB PO SCH (21:11)
[2021-11-30] MEDS: ZOLPIDEM TARTRATE 10 MG TAB PO SCH (21:23)
--- NOTE | 2021-11-30 22:18 | Hospitalist Progress Note ---
Date of Service November 30, 2021 Assessment & Plan (1) Atrial fibrillation with RVR: Plan: Seems to have history of longstanding persistent atrial fibrillation: Rate control Cardiology consulted Amiodarone and cardizem discontinued ECHO showed no LV wall motion abnormality with EF 55-60% cardizem drip stopped IV heparin drip was discontinued due to drop on hemoglobin No anticoagulation (risks greater than the benefit) patient refused any anticoagulant as well Continue metoprolol 100mg BID and digoxin 125mcg Cardiology follow up (outpt) arranged UTI Urine cx grew gram negative bacilli- Klebsiella Resistant to Rocephin completed the course Ertapenem Denied any urinary symptoms Anemia Baseline Hgb btw 8 to 9, current Hgb 9.3 Last colonoscopy was on 08/17- normal. GI recommended 10 yrs follow IV heparin drip discontinued because hgb dropped to 7.3 Patient reports history of thalassemia stable Hyponatremia current Na 130- 131 Possible related to diuretic, psych meds switched lasix 40 from bid to daily (edema also significantly improved), will stop now as no edema Will cont. w/ lasix 3x a week If Na continues to drop will hold lasix and consult nephrology Continue monitor BMP Depression Anxiety Bipolar disorder Denies any suicide ideation Psych consulted - recommended to continue home psych meds 1 to 1 observation discontinued Stable Hypothyroidism TSH 22 Levothyroxine increased to 50mcg Check TSH in 4 to 6 weeks B/L LE edema - resolved Doppler of LE extremity showed no DVT Continued Lasix 40mg BID, then switched to daily BP lower and edema resolved - will hold lasix Right hip pain -Patient reports that she had both hip replaced in [place] several months ago -She had a fall in September and was seen by her surgeon for that, she reports there was nothing to do -Hip x-ray was obtained here, and reviewed CT right hip showed Right hip total joint arthroplasty with evidence of hardware loosening involving the acetabular cup and acetabular fixation screws. 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 Ortho consulted recommended if a revision arthroplasty needs to be performed it would need to be done at a tertiary care facility due to the patient's underlying health issues. Will discuss with ortho if pt needs to be transfer now for the revision Continue pain management I called [facility] to transfer about the right hip for the revision Case discussed with Ortho Dr. Hill at [facility]. Dr. Hill reviewed the CT hip and agreed that pt will need a right hip revision Dr. Hill said that it is not urgent since there is no sign of infection (Pt is afebrile and no leukocytosis) Unfortunately dr. Hill said that it takes preparation to do a revision and pt can call the [facility] for the appointment at [phone] Will need outpatient follow up with [facility] to schedule for the Hip Revision Hx of PE Pt was on coumadin several years ago Not on any anticoagulant currently Vergara's esophagus Continue omeprazole. Hyperlipidemia: Continue statin. Morbid obesity BMI 51.8 Counseling on weight loss Sleep apnea: Not on any CPAP DVT: SCDs, heparin subq on hold for low hgb disposition : Waiting for placement Admission and Anticipated Discharge Date Admission Date: November 13, 2021 Subjective Pt was seen and examined for follow up of right hip pain and anxiety Lying in bed with no acute distress She said that she continues to have pain in her right hip I called [facility] to transfer about the right hip for the revision Case discussed with Ortho Dr. Hill at [facility]. Dr. Hill reviewed the CT hip and agreed that pt will need a right hip revision Dr. Hill said that it is not urgent since there is no sign of infection (Pt is afebrile and no leukocytosis) Unfortunately dr. Hill said that it takes preparation to do a revision and pt can call the [facility] to schedule for the hip revision with Dr. Glen Hill recommended to check ESR and CRP and also to get a Right hip joint aspiration if able to check for culture, gram stain Denies any chest pain, palpitation, dizziness and fever Review of Systems Review of Systems: All systems reviewed & are unremarkable except as noted in Subjective Physical Exam Physical Exam: General- No acute distress Head- atraumatic Eyes- PERRL, EOMI, ENT- oropharynx clear Neck- supple, no JVD Lungs- clear to auscultation Heart- irregular rhythm; no murmur Abdomen- normal bowel sounds, soft, nontender Extremities- no calf tenderness, +edema, right hip pain Neuro- alert, oriented x 3; PERRL, EOMI; no facial palsy; no dysarthria Skin- warm & dry Results & Data Results & Data ([facility]) Vital Signs (Past 12 Hours) Vital Signs Temp Pulse Pulse Pulse Resp BP Pulse Ox 11/30/21 21:27 36.7 C 72 18 115/73 96 11/30/21 21:11 70 11/30/21 20:33 70 110/71 11/30/21 15:24 37 C 77 16 121/71 95
[2021-12-01] MEDS: oxyCODONE HCL IR 5 MG TAB (IMMEDIATE RELEASE) PO PRN ×5 (01:45→20:16)
[2021-12-01] MEDS: LEVOTHYROXINE SODIUM 50 MCG TABLET PO SCH (05:44)
[2021-12-01] MEDS: rOPINIRole HCL 1 MG TABLET PO SCH ×3 (07:50→20:15)
[2021-12-01] MEDS: TOPIRAMATE 100 MG TAB PO SCH ×2 (07:51→20:15)
[2021-12-01] MEDS: busPIRone 15 MG TAB PO SCH ×2 (07:51→20:16)
[2021-12-01] MEDS: PANTOprazole 40 MG TAB PO SCH (07:51)
[2021-12-01] MEDS: ASPIRIN 81 MG ECTAB PO SCH (07:51)
[2021-12-01] MEDS: DOCUSATE SODIUM 100 MG CAP PO SCH ×2 (07:51→20:15)
[2021-12-01] MEDS: LIDOCAINE 5% 1 PATCH TD SCH (07:51)
[2021-12-01] MEDS: DULoxetine HCL 60 MG CAP PO SCH ×2 (07:51→20:15)
[2021-12-01] MEDS: CYCLOBENZAPRINE HCL 10 MG TAB PO PRN ×2 (08:30→18:50)
[2021-12-01] MEDS: METOPROLOL SUCC 50MG EXT REL TAB PO SCH ×2 (08:31→20:15)
[2021-12-01] MEDS: LORazepam 0.5 MG TAB PO PRN ×2 (08:59→21:30)
[2021-12-01 09:10] LABS: Hematocrit (blood only) 30.3 % (37-47); Hemoglobin 9.1 g/dL (12.0-16.0); Mean Corpuscular Volume 56.5 fL (80-100); Mean Platelet Volume 9.1 fL (7.4-10.4); Nucleated RBC # (auto) 0.04 K/uL (0-0); Nucleated RBC % (auto) 0.4 %; Platelet Count 585 K/uL (130-400); RDW Standard Deviation 35.8 fL (36.4-46.3); Red Blood Count 5.36 M/uL (4.2-5.4); White Blood Count 10.14 K/uL (4.8-10.8)
[2021-12-01 09:29] LABS: BUN Creatinine Ratio 36.5 (10-20); C Reactive Protein 0.86 mg/dl (0-0.5); Calcium 9.4 mg/dl (8.5-10.1); Est GFR (African American) 113.8 ml/min; Est GFR (Non-African American) 98.2 ml/min; Potassium 3.9 mmol/L (3.5-5.1)
[2021-12-01] MEDS: ONDANSETRON INJ 2 MG/ML 2 ML VIAL IV PRN (18:50)
[2021-12-01] MEDS: ATORVASTATIN 10 MG TAB PO SCH (20:16)
[2021-12-01] MEDS: rOPINIRole HCL 0.25 MG TABLET PO SCH (20:16)
[2021-12-01] MEDS: DIGOXIN 0.125 MG TAB PO SCH (20:16)
[2021-12-01] MEDS: ZOLPIDEM TARTRATE 10 MG TAB PO SCH (21:29)
--- NOTE | 2021-12-01 23:59 | Hospitalist Progress Note ---
Date of Service December 01, 2021 Assessment & Plan (1) Atrial fibrillation with RVR: Plan: Seems to have history of longstanding persistent atrial fibrillation: Rate control Cardiology consulted Amiodarone and cardizem discontinued ECHO showed no LV wall motion abnormality with EF 55-60% cardizem drip stopped IV heparin drip was discontinued due to drop on hemoglobin No anticoagulation (risks greater than the benefit) patient refused any anticoagulant as well Continue metoprolol 100mg BID and digoxin 125mcg Cardiology follow up (outpt) arranged UTI Urine cx grew gram negative bacilli- Klebsiella Resistant to Rocephin completed the course Ertapenem Denied any urinary symptoms Anemia Baseline Hgb btw 8 to 9, current Hgb 9.3 Last colonoscopy was on 08/17- normal. GI recommended 10 yrs follow IV heparin drip discontinued because hgb dropped to 7.3 Patient reports history of thalassemia stable Hyponatremia current Na 130- 131 Possible related to diuretic, psych meds Consider lasix 40mg 3x weekly once discharge If Na continues to drop will hold lasix and consult nephrology Na 129 today Continue monitor BMP Depression Anxiety Bipolar disorder Denies any suicide ideation Psych consulted - recommended to continue home psych meds 1 to 1 observation discontinued Stable Hypothyroidism TSH 22 Levothyroxine increased to 50mcg Check TSH in 4 to 6 weeks B/L LE edema - resolved Doppler of LE extremity showed no DVT Continued Lasix 40mg BID, then switched to daily BP lower and edema resolved - will hold lasix Right hip pain -Patient reports that she had both hip replaced in [place] several months ago -She had a fall in September and was seen by her surgeon for that, she reports there was nothing to do -Hip x-ray was obtained here, and reviewed CT right hip showed Right hip total joint arthroplasty with evidence of hardware loosening involving the acetabular cup and acetabular fixation screws. 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 Ortho consulted recommended if a revision arthroplasty needs to be performed it would need to be done at a tertiary care facility due to the patient's underlying health issues. Will discuss with ortho if pt needs to be transfer now for the revision Continue pain management I called [facility] to transfer about the right hip for the revision Case discussed with Ortho Dr. Hill at [facility]. Dr. Hill reviewed the CT hip and agreed that pt will need a right hip revision Dr. Hill said that it is not urgent since there is no sign of infection (Pt is afebrile and no leukocytosis) Unfortunately dr. Hill said that it takes preparation to do a revision and pt [facility] for the appointment at [phone] Carroll Will need outpatient follow up with Mel to schedule for the Hip Revision Case discussed with radiology that will attempt for hip aspiration on Saturday Hx of PE Pt was on coumadin several years ago Not on any anticoagulant currently Vergara's esophagus Continue omeprazole. Hyperlipidemia: Continue statin. Morbid obesity BMI 51.8 Counseling on weight loss Sleep apnea: Not on any CPAP DVT: SCDs, heparin subq on hold for low hgb disposition : Waiting for placement Admission and Anticipated Discharge Date Admission Date: November 13, 2021 Subjective Pt was seen and examined for follow up of right hip pain and anxiety Sitting in bed with no acute distress Pt said that she slept well last night with the low dose Ativan that helped her to calm herself down Spoke to ortho about the right hip aspiration. Ortho said that it usually performs by radiology Case discussed with Radiology that will attempt right hip aspiration on Saturday Denies any chest pain, palpitation, dizziness and fever Review of Systems Review of Systems: All systems reviewed & are unremarkable except as noted in Subjective Physical Exam Physical Exam: General- No acute distress Head- atraumatic Eyes- PERRL, EOMI, ENT- oropharynx clear Neck- supple, no JVD Lungs- clear to auscultation Heart- irregular rhythm; no murmur Abdomen- normal bowel sounds, soft, nontender Extremities- no calf tenderness, +edema, right hip pain Neuro- alert, oriented x 3; PERRL, EOMI; no facial palsy; no dysarthria Skin- warm & dry Results & Data Results & Data ([facility]) Vital Signs (Past 12 Hours) Vital Signs Temp Pulse Pulse Resp BP Pulse Ox 12/01/21 22:14 36.7 C 77 18 107/72 91 12/01/21 20:16 80 12/01/21 15:37 36.7 C 73 18 98/64 L 96
[2021-12-02] MEDS: LEVOTHYROXINE SODIUM 50 MCG TABLET PO SCH (05:45)
[2021-12-02] MEDS: oxyCODONE HCL IR 5 MG TAB (IMMEDIATE RELEASE) PO PRN ×5 (06:09→23:09)
[2021-12-02] MEDS: CYCLOBENZAPRINE HCL 10 MG TAB PO PRN ×3 (06:09→23:09)
[2021-12-02] MEDS: ASPIRIN 81 MG ECTAB PO SCH (08:11)
[2021-12-02] MEDS: PANTOprazole 40 MG TAB PO SCH (08:11)
[2021-12-02] MEDS: DOCUSATE SODIUM 100 MG CAP PO SCH ×2 (08:12→21:34)
[2021-12-02] MEDS: busPIRone 15 MG TAB PO SCH (08:12)
[2021-12-02] MEDS: DULoxetine HCL 60 MG CAP PO SCH ×2 (08:12→21:34)
[2021-12-02] MEDS: TOPIRAMATE 100 MG TAB PO SCH ×2 (08:12→21:35)
[2021-12-02] MEDS: rOPINIRole HCL 1 MG TABLET PO SCH ×3 (08:12→21:34)
[2021-12-02] MEDS: LIDOCAINE 5% 1 PATCH TD SCH (08:15)
[2021-12-02] MEDS: METOPROLOL SUCC 50MG EXT REL TAB PO SCH ×2 (08:18→21:34)
[2021-12-02 09:13] LABS: Calcium 9.2 mg/dl (8.5-10.1); Potassium 4.1 mmol/L (3.5-5.1)
[2021-12-02 09:18] LABS: BUN Creatinine Ratio 28.8 (10-20); Creatinine Clr Calc Pharmacy 115.5 ml/min; Est GFR (African American) 112.1 ml/min; Est GFR (Non-African American) 96.7 ml/min
[2021-12-02] MEDS: LORazepam 0.5 MG TAB PO PRN ×2 (09:40→21:35)
[2021-12-02] MEDS: ONDANSETRON INJ 2 MG/ML 2 ML VIAL IV PRN (14:38)
[2021-12-02] MEDS: busPIRone 5 MG TAB PO SCH (21:33)
[2021-12-02] MEDS: ATORVASTATIN 10 MG TAB PO SCH (21:33)
[2021-12-02] MEDS: DIGOXIN 0.125 MG TAB PO SCH (21:33)
[2021-12-02] MEDS: rOPINIRole HCL 0.25 MG TABLET PO SCH (21:34)
[2021-12-02] MEDS: ZOLPIDEM TARTRATE 10 MG TAB PO SCH (21:35)
--- NOTE | 2021-12-02 23:45 | Hospitalist Progress Note ---
Date of Service December 02, 2021 Assessment & Plan (1) Atrial fibrillation with RVR: Plan: Seems to have history of longstanding persistent atrial fibrillation: Rate control Cardiology consulted Amiodarone and cardizem discontinued ECHO showed no LV wall motion abnormality with EF 55-60% cardizem drip stopped IV heparin drip was discontinued due to drop on hemoglobin No anticoagulation (risks greater than the benefit) patient refused any anticoagulant as well Continue metoprolol 100mg BID and digoxin 125mcg Cardiology follow up (outpt) arranged UTI Urine cx grew gram negative bacilli- Klebsiella Resistant to Rocephin completed the course Ertapenem Denied any urinary symptoms Anemia Baseline Hgb btw 8 to 9, current Hgb 9.3 Last colonoscopy was on 08/17- normal. GI recommended 10 yrs follow IV heparin drip discontinued because hgb dropped to 7.3 Patient reports history of thalassemia stable Hyponatremia current Na 130- 131 Possible related to diuretic, psych meds Consider lasix 40mg 3x weekly once discharge If Na continues to drop will hold lasix and consult nephrology Na 129 today Continue monitor BMP Depression Anxiety Bipolar disorder Denies any suicide ideation Psych consulted - recommended to continue home psych meds 1 to 1 observation discontinued Buspar increased to 20mg BID Hypothyroidism TSH 22 Levothyroxine increased to 50mcg Check TSH in 4 to 6 weeks B/L LE edema - resolved Doppler of LE extremity showed no DVT Continued Lasix 40mg BID, then switched to daily BP lower and edema resolved - will hold lasix Right hip pain -Patient reports that she had both hip replaced in [place] several months ago -She had a fall in September and was seen by her surgeon for that, she reports there was nothing to do -Hip x-ray was obtained here, and reviewed CT right hip showed Right hip total joint arthroplasty with evidence of hardware loosening involving the acetabular cup and acetabular fixation screws. 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 Ortho consulted recommended if a revision arthroplasty needs to be performed it would need to be done at a tertiary care facility due to the patient's underly ing health issues. Will discuss with ortho if pt needs to be transfer now for the revision Continue pain management I called [facility] to transfer about the right hip for the revision Case discussed with Ortho Dr. Hill at [facility]. Dr. Hill reviewed the CT hip and agreed that pt will need a right hip revision Dr. Hill said that it is not urgent since there is no sign of infection (Pt is afebrile and no leukocytosis) Unfortunately dr. Hill said that it takes preparation to do a revision and pt [facility] for [facility] appointment at [phone] Carroll Will need outpatient follow up with Mel to schedule for the Hip Revision Case discussed with radiology that will attempt for hip aspiration on Saturday Hx of PE Pt was on coumadin several years ago Not on any anticoagulant currently Vergara's esophagus Continue omeprazole. Hyperlipidemia: Continue statin. Morbid obesity BMI 51.8 Counseling on weight loss Sleep apnea: Not on any CPAP DVT: SCDs, heparin subq on hold for low hgb disposition : Waiting for placement Admission and Anticipated Discharge Date Admission Date: November 13, 2021 Subjective Pt was seen and examined for follow up of right hip pain and anxiety Lying in bed with no acute distress Pt said that she continues to have pain in her right hip Denies any chest pain, palpitation, dizziness and fever Review of Systems Review of Systems: All systems reviewed & are unremarkable except as noted in Subjective Physical Exam Physical Exam: General- No acute distress Head- atraumatic Eyes- PERRL, EOMI, ENT- oropharynx clear Neck- supple, no JVD Lungs- clear to auscultation Heart- irregular rhythm; no murmur Abdomen- normal bowel sounds, soft, nontender Extremities- no calf tenderness, +edema, right hip pain Neuro- alert, oriented x 3; PERRL, EOMI; no facial palsy; no dysarthria Skin- warm & dry Results & Data Results & Data ([facility]) Vital Signs (Past 12 Hours) Vital Signs Temp Pulse Resp BP Pulse Ox 12/02/21 22:51 36.7 C 92 H 18 126/72 94 12/02/21 14:24 36.6 C 87 18 125/86 93
[2021-12-03] MEDS: LEVOTHYROXINE SODIUM 50 MCG TABLET PO SCH (05:00)
[2021-12-03] MEDS: ACETAMINOPHEN 325 MG TAB PO PRN ×2 (05:00→19:14)
[2021-12-03] MEDS: oxyCODONE HCL IR 5 MG TAB (IMMEDIATE RELEASE) PO PRN ×5 (05:00→21:39)
[2021-12-03] MEDS: TOPIRAMATE 100 MG TAB PO SCH ×2 (07:25→21:04)
[2021-12-03] MEDS: ASPIRIN 81 MG ECTAB PO SCH (07:25)
[2021-12-03] MEDS: PANTOprazole 40 MG TAB PO SCH (07:25)
[2021-12-03] MEDS: METOPROLOL SUCC 50MG EXT REL TAB PO SCH ×2 (07:25→21:04)
[2021-12-03] MEDS: rOPINIRole HCL 1 MG TABLET PO SCH ×3 (07:25→21:04)
[2021-12-03] MEDS: LIDOCAINE 5% 1 PATCH TD SCH (07:26)
[2021-12-03] MEDS: busPIRone 5 MG TAB PO SCH ×2 (07:26→21:05)
[2021-12-03] MEDS: DULoxetine HCL 60 MG CAP PO SCH ×2 (07:26→21:05)
[2021-12-03] MEDS: DOCUSATE SODIUM 100 MG CAP PO SCH ×2 (07:26→21:04)
[2021-12-03] MEDS: POLYETHYLENE (MIRALAX) 17 GM PACK PO PRN (07:34)
[2021-12-03] MEDS: LORazepam 0.5 MG TAB PO PRN ×2 (09:20→21:39)
[2021-12-03] MEDS: CYCLOBENZAPRINE HCL 10 MG TAB PO PRN ×2 (09:20→17:29)
[2021-12-03] MEDS ORDERED: HEPARIN SOD 5,000 UNIT/0.5 ML VIAL SQ SCH (21:00)
[2021-12-03] MEDS: rOPINIRole HCL 0.25 MG TABLET PO SCH (21:04)
[2021-12-03] MEDS: DIGOXIN 0.125 MG TAB PO SCH (21:05)
[2021-12-03] MEDS: ATORVASTATIN 10 MG TAB PO SCH (21:06)
[2021-12-03] MEDS: ZOLPIDEM TARTRATE 10 MG TAB PO SCH (21:39)
--- NOTE | 2021-12-03 22:52 | Hospitalist Progress Note ---
Date of Service December 03, 2021 Assessment & Plan (1) Atrial fibrillation with RVR: Plan: Seems to have history of longstanding persistent atrial fibrillation: Rate control Cardiology consulted Amiodarone and cardizem discontinued ECHO showed no LV wall motion abnormality with EF 55-60% cardizem drip stopped IV heparin drip was discontinued due to drop on hemoglobin No anticoagulation (risks greater than the benefit) patient refused any anticoagulant as well Continue metoprolol 100mg BID and digoxin 125mcg Cardiology follow up (outpt) arranged UTI Urine cx grew gram negative bacilli- Klebsiella Resistant to Rocephin completed the course Ertapenem Denied any urinary symptoms Anemia Baseline Hgb btw 8 to 9, current Hgb 9.3 Last colonoscopy was on 08/17- normal. GI recommended 10 yrs follow IV heparin drip discontinued because hgb dropped to 7.3 Patient reports history of thalassemia stable Hyponatremia current Na 130- 131 Possible related to diuretic, psych meds Consider lasix 40mg 3x weekly once discharge If Na continues to drop will hold lasix and consult nephrology Na 133 Continue monitor BMP Depression Anxiety Bipolar disorder Denies any suicide ideation Psych consulted - recommended to continue home psych meds 1 to 1 observation discontinued Buspar increased to 20mg BID, will continue Ativan increased to 0.5 mg BID prn Hypothyroidism TSH 22 Levothyroxine increased to 50mcg Check TSH in 4 to 6 weeks B/L LE edema - resolved Doppler of LE extremity showed no DVT Continued Lasix 40mg BID, then switched to daily BP lower and edema resolved - will hold lasix Right hip pain -Patient reports that she had both hip replaced in [place] several months ago -She had a fall in September and was seen by her surgeon for that, she reports there was nothing to do -Hip x-ray was obtained here, and reviewed CT right hip showed Right hip total joint arthroplasty with evidence of hardware loosening involving the acetabular cup and acetabular fixation screws. 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 Ortho consulted recommended if a revision arthroplasty needs to be performed it would need to be done at a tertiary care facility due to the patient's underlying health issues. Will discuss with ortho if pt needs to be transfer now for the revision Continue pain management I called [facility] to transfer about the right hip for the revision Case discussed with Ortho Dr. Hill at [facility]. Dr. Hill reviewed the CT hip and agreed that pt will need a right hip revision Dr. Hill said that it is not urgent since there is no sign of infection (Pt is afebrile and no leukocytosis) Unfortunately dr. Hill said that it takes preparation to do a revision and pt [facility] for the appointment at [phone] Carroll Will need outpatient follow up with Mel to schedule for the Hip Revision Case discussed with radiology that will attempt for hip aspiration on Saturday Hx of PE Pt was on coumadin several years ago Not on any anticoagulant currently Vergara's esophagus Continue omeprazole. Hyperlipidemia: Continue statin. Morbid obesity BMI 51.8 Counseling on weight loss Sleep apnea: Not on any CPAP DVT: SCDs, heparin subq on hold for low hgb disposition : Waiting for placement Admission and Anticipated Discharge Date Admission Date: November 13, 2021 Subjective Pt was seen and examined for follow up of right hip pain and anxiety Lying in bed with no acute distress Denies any chest pain, palpitation, dizziness and fever Review of Systems Review of Systems: All systems reviewed & are unremarkable except as noted in Subjective Physical Exam Physical Exam: General- No acute distress Head- atraumatic Eyes- PERRL, EOMI, ENT- oropharynx clear Neck- supple, no JVD Lungs- clear to auscultation Heart- irregular rhythm; no murmur Abdomen- normal bowel sounds, soft, nontender Extremities- no calf tenderness, +edema, right hip pain Neuro- alert, oriented x 3; PERRL, EOMI; no facial palsy; no dysarthria Skin- warm & dry Results & Data Results & Data ([facility]) Vital Signs (Past 12 Hours) Vital Signs Temp Pulse Pulse Resp BP Pulse Ox 12/03/21 22:06 36.6 C 94 H 18 106/64 92 12/03/21 21:05 76 12/03/21 14:40 36.6 C 80 20 99/63 L 93
[2021-12-04] MEDS: oxyCODONE HCL IR 5 MG TAB (IMMEDIATE RELEASE) PO PRN ×5 (03:23→21:03)
[2021-12-04] MEDS: CYCLOBENZAPRINE HCL 10 MG TAB PO PRN ×2 (03:24→17:36)
[2021-12-04] MEDS: LEVOTHYROXINE SODIUM 50 MCG TABLET PO SCH (05:31)
[2021-12-04] MEDS: DOCUSATE SODIUM 100 MG CAP PO SCH ×2 (07:33→21:02)
[2021-12-04] MEDS: DULoxetine HCL 60 MG CAP PO SCH ×2 (07:33→21:02)
[2021-12-04] MEDS: PANTOprazole 40 MG TAB PO SCH (07:33)
[2021-12-04] MEDS: busPIRone 5 MG TAB PO SCH ×2 (07:33→21:01)
[2021-12-04] MEDS: LIDOCAINE 5% 1 PATCH TD SCH (07:33)
[2021-12-04] MEDS: rOPINIRole HCL 1 MG TABLET PO SCH ×3 (07:34→21:03)
[2021-12-04] MEDS: TOPIRAMATE 100 MG TAB PO SCH ×2 (07:34→21:03)
[2021-12-04] MEDS: METOPROLOL SUCC 50MG EXT REL TAB PO SCH ×2 (08:35→21:03)
[2021-12-04] MEDS: LORazepam 0.5 MG TAB PO PRN ×2 (09:18→22:13)
--- NOTE | 2021-12-04 13:31 | Ultrasound Report ---
ULTRASOUND GUIDED RIGHT HIP ASPIRATION CLINICAL HISTORY: Right hip pain. COMPARISON STUDY: CT scan of the right hip dated 11/28/2021. PROCEDURE: The risks, benefits, and alternatives to the procedure were discussed with the patient who voiced understanding. Written informed consent was obtained. A small pocket of complex appearing flu id anterior to the right hip was localized by ultrasound and selected for aspiration. This measured a pproximately 5 cm in maximum length. The overlying soft tissues were anesthetized with 1% lidocaine. A 20-gauge spinal needle was advanced into the fluid collection under ultrasound guidance and aspirat ion was attempted. No fluid was able to be aspirated despite numerous attempts being made. A small am ount of normal saline was then injected and a small amount was withdrawn. This was sent for laborator y assessment. There are no immediate complications. The patient tolerated the procedure well and left the department in satisfactory condition. IMPRESSION: Attempted ultrasound-guided aspiration of a small pocket of complex fluid along the anter ior aspect of the right proximal femur. No fluid was able to be aspirated. See above. Dictated: 12/04/2021 12:16 PM Transcribed: 12/04/2021 12:59 PM Snow [id number] [email or web address] Electronically signed by: Gregor Rosario M.D. 12/04/2021 1:29 PM
[2021-12-04] MEDS: ACETAMINOPHEN 325 MG TAB PO PRN (19:52)
[2021-12-04] MEDS: ATORVASTATIN 10 MG TAB PO SCH (21:01)
[2021-12-04] MEDS: DIGOXIN 0.125 MG TAB PO SCH (21:02)
[2021-12-04] MEDS: rOPINIRole HCL 0.25 MG TABLET PO SCH (21:03)
[2021-12-04] MEDS: ZOLPIDEM TARTRATE 10 MG TAB PO SCH (22:13)
--- NOTE | 2021-12-04 22:40 | Hospitalist Progress Note ---
Date of Service December 04, 2021 Assessment & Plan (1) Atrial fibrillation with RVR: Plan: Seems to have history of longstanding persistent atrial fibrillation: Rate control Cardiology consulted Amiodarone and cardizem discontinued ECHO showed no LV wall motion abnormality with EF 55-60% cardizem drip stopped IV heparin drip was discontinued due to drop on hemoglobin No anticoagulation (risks greater than the benefit) patient refused any anticoagulant as well Continue metoprolol 100mg BID and digoxin 125mcg Cardiology follow up (outpt) arranged UTI Urine cx grew gram negative bacilli- Klebsiella Resistant to Rocephin completed the course Ertapenem Denied any urinary symptoms Anemia Baseline Hgb btw 8 to 9, current Hgb 9.3 Last colonoscopy was on 08/17- normal. GI recommended 10 yrs follow IV heparin drip discontinued because hgb dropped to 7.3 Patient reports history of thalassemia stable Hyponatremia current Na 130- 131 Possible related to diuretic, psych meds Consider lasix 40mg 3x weekly once discharge If Na continues to drop will hold lasix and consult nephrology Na 133 Continue monitor BMP Depression Anxiety Bipolar disorder Denies any suicide ideation Psych consulted - recommended to continue home psych meds 1 to 1 observation discontinued Buspar increased to 20mg BID, will continue Ativan increased to 0.5 mg BID prn Hypothyroidism TSH 22 Levothyroxine increased to 50mcg Check TSH in 4 to 6 weeks B/L LE edema - resolved Doppler of LE extremity showed no DVT Continued Lasix 40mg BID, then switched to daily BP lower and edema resolved - will hold lasix Right hip pain -Patient reports that she had both hip replaced in [place] several months ago -She had a fall in September and was seen by her surgeon for that, she reports there was nothing to do -Hip x-ray was obtained here, and reviewed CT right hip showed Right hip total joint arthroplasty with evidence of hardware loosening involving the acetabular cup and acetabular fixation screws. 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 Ortho consulted recommended if a revision arthroplasty needs to be performed it would need to be done at a tertiary care facility due to the patient's underlying health issues. Will discuss with ortho if pt needs to be transfer now for the revision Continue pain management I called [facility] to transfer about the right hip for the revision Case discussed with Ortho Dr. Hill at [facility]. Dr. Hill reviewed the CT hip and agreed that pt will need a right hip revision Dr. Hill said that it is not urgent since there is no sign of infection (Pt is afebrile and no leukocytosis) Unfortunately dr. Hill said that it takes preparation to do a revision and pt [facility] for the appointment at [phone] Carroll Will need outpatient follow up with Mel to schedule for the Hip Revision Case discussed with radiology that will attempt for hip aspiration today She went for the hip aspiration, but not enough fluid was able to collect Hx of PE Pt was on coumadin several years ago Not on any anticoagulant currently Vergara's esophagus Continue omeprazole. Hyperlipidemia: Continue statin. Morbid obesity BMI 51.8 Counseling on weight loss Sleep apnea: Not on any CPAP DVT: SCDs, heparin subq on hold for low hgb, will resume it if BP stable Disposition : Waiting for placement Admission and Anticipated Discharge Date Admission Date: November 13, 2021 Subjective Pt was seen and examined for follow up of right hip pain and anxiety Lying in bed with no acute distress She went for the hip aspiration, but not enough fluid was able to collect Denies any chest pain, palpitation, dizziness and fever Review of Systems 2 Review of Systems: All systems reviewed & are unremarkable except as noted in Subjective Physical Exam Physical Exam: General- No acute distress Head- atraumatic Eyes- PERRL, EOMI, ENT- oropharynx clear Neck- supple, no JVD Lungs- clear to auscultation Heart- irregular rhythm; no murmur Abdomen- normal bowel sounds, soft, nontender Extremities- no calf tenderness, +edema, right hip pain Neuro- alert, oriented x 3; PERRL, EOMI; no facial palsy; no dysarthria Skin- warm & dry Results & Data Results & Data ([facility]) Vital Signs (Past 12 Hours) Vital Signs Temp Pulse Pulse Resp BP Pulse Ox 12/04/21 22:12 36.5 C 64 18 122/72 97 12/04/21 21:02 80 12/04/21 21:00 80 109/75 12/04/21 15:25 36.6 C 85 16 107/62 93
[2021-12-05] MEDS: oxyCODONE HCL IR 5 MG TAB (IMMEDIATE RELEASE) PO PRN ×5 (02:51→22:15)
[2021-12-05] MEDS: CYCLOBENZAPRINE HCL 10 MG TAB PO PRN ×3 (02:53→15:57)
[2021-12-05] MEDS: ACETAMINOPHEN 325 MG TAB PO PRN ×2 (05:14→20:29)
[2021-12-05] MEDS: LEVOTHYROXINE SODIUM 50 MCG TABLET PO SCH (05:15)
[2021-12-05] MEDS: rOPINIRole HCL 1 MG TABLET PO SCH ×3 (08:15→21:36)
[2021-12-05] MEDS: TOPIRAMATE 100 MG TAB PO SCH ×2 (08:15→21:36)
[2021-12-05] MEDS: METOPROLOL SUCC 50MG EXT REL TAB PO SCH ×2 (08:16→21:34)
[2021-12-05] MEDS: DOCUSATE SODIUM 100 MG CAP PO SCH ×2 (08:16→21:34)
[2021-12-05] MEDS: PANTOprazole 40 MG TAB PO SCH (08:16)
[2021-12-05] MEDS: busPIRone 5 MG TAB PO SCH ×2 (08:16→21:35)
[2021-12-05] MEDS: LIDOCAINE 5% 1 PATCH TD SCH (08:16)
[2021-12-05] MEDS: DULoxetine HCL 60 MG CAP PO SCH ×2 (08:16→21:35)
[2021-12-05] MEDS: HEPARIN SOD 5,000 UNIT/0.5 ML VIAL SQ SCH ×2 (08:45→21:37)
[2021-12-05] MEDS: LORazepam 0.5 MG TAB PO PRN ×2 (08:45→22:15)
--- NOTE | 2021-12-05 18:52 | Hospitalist Progress Note ---
Date of Service December 05, 2021 Assessment & Plan (1) Atrial fibrillation with RVR: Plan: Seems to have history of longstanding persistent atrial fibrillation: Rate control Cardiology consulted Amiodarone and cardizem discontinued ECHO showed no LV wall motion abnormality with EF 55-60% cardizem drip stopped IV heparin drip was discontinued due to drop on hemoglobin No anticoagulation (risks greater than the benefit) patient refused any anticoagulant as well Continue metoprolol 100mg BID and digoxin 125mcg Cardiology follow up (outpt) arranged UTI Urine cx grew gram negative bacilli- Klebsiella Resistant to Rocephin completed the course Ertapenem Denied any urinary symptoms Anemia Baseline Hgb btw 8 to 9, current Hgb 9.3 Last colonoscopy was on 08/17- normal. GI recommended 10 yrs follow IV heparin drip discontinued because hgb dropped to 7.3 Patient reports history of thalassemia stable Hyponatremia current Na 130- 131 Possible related to diuretic, psych meds Consider lasix 40mg 3x weekly once discharge If Na continues to drop will hold lasix and consult nephrology Na 133 Continue monitor BMP Depression Anxiety Bipolar disorder Denies any suicide ideation Psych consulted - recommended to continue home psych meds 1 to 1 observation discontinued Buspar increased to 20mg BID, will continue Ativan increased to 0.5 mg BID prn Hypothyroidism TSH 22 Levothyroxine increased to 50mcg Check TSH in 4 to 6 weeks B/L LE edema - resolved Doppler of LE extremity showed no DVT Continued Lasix 40mg BID, then switched to daily BP lower and edema resolved - will hold lasix Right hip pain -Patient reports that she had both hip replaced in [place] several months ago -She had a fall in September and was seen by her surgeon for that, she reports there was nothing to do -Hip x-ray was obtained here, and reviewed CT right hip showed Right hip total joint arthroplasty with evidence of hardware loosening involving the acetabular cup and acetabular fixation screws. 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 Ortho consulted recommended if a revision arthroplasty needs to be performed it would need to be done at a tertiary care facility due to the patient's underlying health issues. Will discuss with ortho if pt needs to be transfer now for the revision Continue pain management I called [facility] to transfer about the right hip for the revision Case discussed with Ortho Dr. Hill at [facility]. Dr. Hill reviewed the CT hip and agreed that pt will need a right hip revision Dr. Hill said that it is not urgent since there is no sign of infection (Pt is afebrile and no leukocytosis) Unfortunately dr. Hill said that it takes preparation to do a revision and pt can call [facility] for the appointment at [phone] Carroll Will need outpatient follow up with Mel to schedule for the Hip Revision Case discussed with radiology that will attempt for hip aspiration today She went for the hip aspiration, but not enough fluid was able to collect Hip aspiration fluid cx and gram stain negative Hx of PE Pt was on coumadin several years ago Not on any anticoagulant currently Vergara's esophagus Continue omeprazole. Hyperlipidemia: Continue statin. Morbid obesity BMI 51.8 Counseling on weight loss Sleep apnea: Not on any CPAP DVT: SCDs, heparin subq on hold for low hgb, will resume it if BP stable Disposition : Waiting for placement Admission and Anticipated Discharge Date Admission Date: November 13, 2021 Subjective Pt was seen and examined for follow up of right hip pain and anxiety Lying in bed with no acute distress She said that she called to schedule for the hip revision, the earliest appt is in January Denies any chest pain, palpitation, dizziness and fever Review of Systems Review of Systems: All systems reviewed & are unremarkable except as noted in Subjective Physical Exam Physical Exam: General- No acute distress Head- atraumatic Eyes- PERRL, EOMI, ENT- oropharynx clear Neck- supple, no JVD Lungs- clear to auscultation Heart- irregular rhythm; no murmur Abdomen- normal bowel sounds, soft, nontender Extremities- no calf tenderness, +edema, right hip pain Neuro- alert, oriented x 3; PERRL, EOMI; no facial palsy; no dysarthria Skin- warm & dry Results & Data Results & Data ([facility]) Vital Signs (Past 12 Hours) Vital Signs Temp Pulse Resp BP Pulse Ox 12/05/21 15:27 36.7 C 76 16 108/64 95 12/05/21 07:59 36.7 C 78 16 103/64 95
[2021-12-05] MEDS: DIGOXIN 0.125 MG TAB PO SCH (21:35)
[2021-12-05] MEDS: rOPINIRole HCL 0.25 MG TABLET PO SCH (21:36)
[2021-12-05] MEDS: ATORVASTATIN 10 MG TAB PO SCH (21:37)
[2021-12-05] MEDS: ZOLPIDEM TARTRATE 10 MG TAB PO SCH (22:15)
[2021-12-06] MEDS: oxyCODONE HCL IR 5 MG TAB (IMMEDIATE RELEASE) PO PRN ×4 (04:24→19:24)
[2021-12-06] MEDS: LEVOTHYROXINE SODIUM 50 MCG TABLET PO SCH (05:38)
[2021-12-06] MEDS: METOPROLOL SUCC 50MG EXT REL TAB PO SCH ×2 (10:08→21:53)
[2021-12-06] MEDS: CYCLOBENZAPRINE HCL 10 MG TAB PO PRN (10:08)
[2021-12-06] MEDS: LORazepam 0.5 MG TAB PO PRN ×2 (10:08→21:52)
[2021-12-06] MEDS: busPIRone 5 MG TAB PO SCH ×2 (10:09→21:55)
[2021-12-06] MEDS: DOCUSATE SODIUM 100 MG CAP PO SCH ×2 (10:09→21:53)
[2021-12-06] MEDS: PANTOprazole 40 MG TAB PO SCH (10:09)
[2021-12-06] MEDS: rOPINIRole HCL 1 MG TABLET PO SCH ×3 (10:09→21:52)
[2021-12-06] MEDS: DULoxetine HCL 60 MG CAP PO SCH ×2 (10:09→21:54)
[2021-12-06] MEDS: HEPARIN SOD 5,000 UNIT/0.5 ML VIAL SQ SCH ×2 (10:10→21:55)
[2021-12-06] MEDS: LIDOCAINE 5% 1 PATCH TD SCH (10:10)
[2021-12-06] MEDS: TOPIRAMATE 100 MG TAB PO SCH ×2 (10:10→21:54)
--- NOTE | 2021-12-06 16:43 | Hospitalist Progress Note ---
Date of Service December 06, 2021 Assessment & Plan (1) Atrial fibrillation with RVR: Plan: Seems to have history of longstanding persistent atrial fibrillation: Rate control Cardiology consulted Amiodarone and cardizem discontinued ECHO showed no LV wall motion abnormality with EF 55-60% cardizem drip stopped IV heparin drip was discontinued due to drop on hemoglobin No anticoagulation (risks greater than the benefit) patient refused any anticoagulant as well Continue metoprolol 100mg BID and digoxin 125mcg Cardiology follow up (outpt) arranged UTI Urine cx grew gram negative bacilli- Klebsiella Resistant to Rocephin Denied any urinary symptoms completed the course Ertapenem Resolved Anemia Baseline Hgb btw 8 to 9, current Hgb 9.3 Last colonoscopy was on 08/17- normal. GI recommended 10 yrs follow IV heparin drip discontinued because hgb dropped to 7.3 Patient reports history of thalassemia stable Hyponatremia current Na 130- 131 Possible related to diuretic, psych meds Consider lasix 40mg 3x weekly once discharge If Na continues to drop will hold lasix and consult nephrology Na 133 Continue monitor BMP Depression Anxiety Bipolar disorder Denies any suicide ideation Psych consulted - recommended to continue home psych meds 1 to 1 observation discontinued Buspar increased to 20mg BID, will continue Ativan increased to 0.5 mg BID prn Hypothyroidism TSH 22 Levothyroxine increased to 50mcg Check TSH in 4 to 6 weeks B/L LE edema - resolved Doppler of LE extremity showed no DVT Continued Lasix 40mg BID, then switched to daily BP lower and edema resolved - will hold lasix Right hip pain -Patient reports that she had both hip replaced in [place] several months ago -She had a fall in September and was seen by her surgeon for that, she reports there was nothing to do -Hip x-ray was obtained here, and reviewed CT right hip showed Right hip total joint arthroplasty with evidence of hardware loosening involving the acetabular cup and acetabular fixation screws. 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 Ortho consulted recommended if a revision arthroplasty needs to be performed it would need to be done at a tertiary care facility due to the patient's underlying health issues. Will discuss with ortho if pt needs to be transfer now for the revision Continue pain management I called [facility] to transfer about the right hip for the revision Case discussed with Ortho Dr. Hill at [facility]. Dr. Hill reviewed the CT hip and agreed that pt will need a right hip revision Dr. Hill said that it is not urgent since there is no sign of infection (Pt is afebrile and no leukocytosis) Unfortunately dr. Hill said that it takes preparation to do a revision and pt can [facility] for the appointment at [phone] Carroll Will need outpatient follow up with [facility] to schedule for the Hip Revision Case discussed with radiology that will attempt for hip aspiration today She went for the hip aspiration, but not enough fluid was able to collect Hip aspiration fluid cx and gram stain negative I called [facility] Transfer service discussed case with Ortho Dr. Selam Doss said that since there is no acute fracture or infection he will make the ortho joint team contact me to see when they can schedule her to be seen outpatient Hx of PE Pt was on coumadin several years ago Not on any anticoagulant currently Vergara's esophagus Continue omeprazole. Hyperlipidemia: Continue statin. Morbid obesity BMI 51.8 Counseling on weight loss Sleep apnea: Not on any CPAP DVT: SCDs, heparin subq BID (Monitor Hgb ) Disposition : Waiting for placement Admission and Anticipated Discharge Date Admission Date: November 13, 2021 Subjective Pt was seen and examined for follow up of right hip pain and anxiety Lying in bed with no acute distress She said that she continues to have a lot of pain in her right hip Denies any chest pain, palpitation, dizziness and fever Review of Systems Review of Systems: All systems reviewed & are unremarkable except as noted in Subjective Physical Exam Physical Exam: General- No acute distress Head- atraumatic Eyes- PERRL, EOMI, ENT- oropharynx clear Neck- supple, no JVD Lungs- clear to auscultation Heart- irregular rhythm; no murmur Abdomen- normal bowel sounds, soft, nontender Extremities- no calf tenderness, +edema, right hip pain Neuro- alert, oriented x 3; PERRL, EOMI; no facial palsy; no dysarthria Skin- warm & dry Results & Data Results & Data ([facility]) Vital Signs (Past 12 Hours) Vital Signs Temp Pulse Resp BP Pulse Ox 12/06/21 15:03 36.6 C 75 18 115/75 97 12/06/21 08:13 37.8 C H 85 18 125/78 96
[2021-12-06] MEDS: ZOLPIDEM TARTRATE 10 MG TAB PO SCH (21:52)
[2021-12-06] MEDS: DIGOXIN 0.125 MG TAB PO SCH (21:53)
[2021-12-06] MEDS: ATORVASTATIN 10 MG TAB PO SCH (21:54)
[2021-12-06] MEDS: rOPINIRole HCL 0.25 MG TABLET PO SCH (21:55)
[2021-12-07] MEDS: oxyCODONE HCL IR 5 MG TAB (IMMEDIATE RELEASE) PO PRN ×5 (00:48→21:02)
[2021-12-07] MEDS: LEVOTHYROXINE SODIUM 50 MCG TABLET PO SCH (06:03)
[2021-12-07] MEDS: METOPROLOL SUCC 50MG EXT REL TAB PO SCH ×2 (07:36→21:34)
[2021-12-07] MEDS: CYCLOBENZAPRINE HCL 10 MG TAB PO PRN ×2 (07:36→16:45)
[2021-12-07] MEDS: busPIRone 5 MG TAB PO SCH ×2 (07:36→21:33)
[2021-12-07] MEDS: PANTOprazole 40 MG TAB PO SCH (07:36)
[2021-12-07] MEDS: DOCUSATE SODIUM 100 MG CAP PO SCH ×2 (07:36→21:35)
[2021-12-07] MEDS: TOPIRAMATE 100 MG TAB PO SCH ×2 (07:37→21:35)
[2021-12-07] MEDS: DULoxetine HCL 60 MG CAP PO SCH ×2 (07:37→21:33)
[2021-12-07] MEDS: LIDOCAINE 5% 1 PATCH TD SCH (07:37)
[2021-12-07] MEDS: rOPINIRole HCL 1 MG TABLET PO SCH ×3 (07:37→21:32)
[2021-12-07 08:49] LABS: Hematocrit (blood only) 29.4 % (37-47); Mean Corpuscular Hemoglobin 17.6 pg (25-34); Mean Corpuscular Hgb Conc 30.6 g/dL (32-36); Mean Corpuscular Volume 57.4 fL (80-100); Mean Platelet Volume 9.2 fL (7.4-10.4); Platelet Count 538 K/uL (130-400); RDW Coefficient of Variation 18.2 % (11.5-14.5); RDW Standard Deviation 37.4 fL (36.4-46.3); Red Blood Count 5.12 M/uL (4.2-5.4); White Blood Count 7.75 K/uL (4.8-10.8)
[2021-12-07 09:05] LABS: Potassium 4.2 mmol/L (3.5-5.1)
[2021-12-07 09:06] LABS: BUN Creatinine Ratio 31.3 (10-20); Creatinine Clr Calc Pharmacy 119.1 ml/min; Est GFR (African American) 113.2 ml/min; Est GFR (Non-African American) 97.7 ml/min
[2021-12-07] MEDS: LORazepam 0.5 MG TAB PO PRN ×2 (09:40→21:31)
[2021-12-07] MEDS: HEPARIN SOD 5,000 UNIT/0.5 ML VIAL SQ SCH ×2 (09:41→21:36)
[2021-12-07] MEDS: ZOLPIDEM TARTRATE 10 MG TAB PO SCH (21:31)
[2021-12-07] MEDS: rOPINIRole HCL 0.25 MG TABLET PO SCH (21:32)
[2021-12-07] MEDS: ATORVASTATIN 10 MG TAB PO SCH (21:34)
[2021-12-07] MEDS: DIGOXIN 0.125 MG TAB PO SCH (21:34)
--- NOTE | 2021-12-07 21:49 | Hospitalist Progress Note ---
Date of Service December 07, 2021 Assessment & Plan (1) Atrial fibrillation with RVR: Plan: Seems to have history of longstanding persistent atrial fibrillation: Rate control Cardiology consulted Amiodarone and cardizem discontinued ECHO showed no LV wall motion abnormality with EF 55-60% cardizem drip stopped IV heparin drip was discontinued due to drop on hemoglobin No anticoagulation (risks greater than the benefit) patient refused any anticoagulant as well Continue metoprolol 100mg BID and digoxin 125mcg Cardiology follow up (outpt) arranged UTI Urine cx grew gram negative bacilli- Klebsiella Resistant to Rocephin Denied any urinary symptoms completed the course Ertapenem Resolved Anemia Baseline Hgb btw 8 to 9, current Hgb stable Last colonoscopy was on 08/17- normal. GI recommended 10 yrs follow Patient reports history of thalassemia cont further workup/monitoring as outpatient Hyponatremia current Na 132 Possible related to diuretic, psych meds Consider lasix 40mg 3x weekly once discharge If Na continues to drop will hold lasix and consult nephrology currently stable. Continue monitor BMP Depression Anxiety Bipolar disorder Denies any suicide ideation Psych consulted - recommended to continue home psych meds 1 to 1 observation discontinued Buspar increased to 20mg BID, will continue Ativan increased to 0.5 mg BID prn Hypothyroidism TSH 22 Levothyroxine increased to 50mcg Check TSH in 4 to 6 weeks B/L LE edema - resolved Doppler of LE extremity showed no DVT Continued Lasix 40mg BID, then switched to daily BP lower and edema resolved - will hold lasix Right hip pain -Patient reports that she had both hip replaced in [place] several months ago -She had a fall in September and was seen by her surgeon for that, she reports there was nothing to do -Hip x-ray was obtained here, and reviewed CT right hip showed Right hip total joint arthroplasty with evidence of hardware loosening involving the acetabular cup and acetabular fixation screws. 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 Ortho consulted recommended if a revision arthroplasty needs to be performed it would need to be done at a tertiary care facility due to the patient's underlying health issues. Contacted [facility] (Dr. Hill) regarding transfer for the procedure. This was deemed not urgent and to be done as outpatient Dr. Hill advised it takes preparation to do a revision and pt can call the [facility] for the appointment at [phone] Glen Will need outpatient follow up with [facility] to schedule for the Hip Revision Interventional radiology here attempted a hip aspiration, but not enough fluid was able to collect Hip aspiration fluid cx and gram stain negative Contacted [facility] Transfer service discussed case with Ortho Dr. Selam Doss said that since there is no acute fracture or infection he will make the ortho joint team contact me to see when they can schedule her to be seen out patient Dr. Simon reiterated this procedure should be performed as outpatient. Currently there are no SNFs accepting of her with loose hardware. PT evaluated her ability today and case management working on a disposition solution. Hx of PE Pt was on coumadin several years ago Not on any anticoagulant currently -pt declines as above. Vergara's esophagus-chronic, stable Continue omeprazole per home regimen. Morbid obesity BMI 51.8 Counseling on weight loss Sleep apnea: Not on any CPAP Heparin for DVT prophylaxis Full cOde Dispo- uncertain at this time. She is stable for discharge from a medical standpoint as long as she has a safe disposition. Shala Leary DO [facility] Hospitalist Admission and Anticipated Discharge Date Admission Date: November 13, 2021 Subjective 61 yo F with h/o bipolar disorder who presented 3+weeks ago for afib with RVR. She has since stayed in the hospital with severe R hip pain s/p fall on 09/30/21 where she landed on her left hip. Imaging of the right hip revelas hardward that is "loose" and orthopedics is recommending a nonurgent outpatient surgery. She has been ambulating to and from the bathroom per her report but then in the next breath she says she has been wheelchair bound at home. Her home is another issue. She just moved from [place] where she was living with her sister in a 55+ home, but had to leave because of visitation rules. She states she was supposed to move up here and rent a room which didn't work out, then her daughter's friend was supposed to help her out but that fell through. Now she is here with no place to go. She reports she can't live with her daughter because "she lives in a farm house and I can't climb the stairs to get to the bathroom." A few moments later she tells me that her daughter lives in a trailer with her kids and the kids are the reason it would be too crowded for her to stay there. She was very excited because [facility] had an opening for a preop appt with an ortho surgeon for tomorrow She told me she would have a friend drive her there and then bring her back to be readmitted here I explained that is not a safe disposition and when she is discharged, it can't be with the intent to return, that there needs to be a place for her to stay temporarily She reports she is working on this now. She reports pain that is severe in her hips with movement She is tolerating PO Denies other issues at this time. Review of Systems Review of Systems: All systems were reviewed and negative except as indicated on subjective above. Physical Exam Physical Exam: CONSTITUTIONAL: obesity, vitals as above, generally well- appearing, NAD EYES: normal conjunctivae, no scleral icterus, +glasses ENT: external ear and nose normal, MMM NECK: trachea midline, RESPIRATORY: clear to auscultation bilaterally, no crackles, rales or wheezes, normal respiratory effort CARDIOVASCULAR: irregular rate and irregular rhythm, S1 and 2 heard without murmurs, gallops or rubs, no JVD, no peripheral edema CHEST: inspection of chest was normal GASTROINTESTINAL: soft, nontender, ND, no guarding MUSCULOSKELETAL: strength 5/5 throughout, head is normocephalic and atraumatic, neck supple, normal palpation of chest wall without tenderness SKIN: warm and dry NEUROLOGIC: CN 2-12 grossly intact, no sensory deficit, normal cognition, normal speech, no tremor PSYCHIATRIC: alert cooperative and oriented to person, place and time. Euthymic mood, makes good eye contact, language grossly intact, recent and remote memory grossly intact. Results & Data Results & Data ([facility]) Vital Signs (Past 12 Hours) Vital Signs Temp Pulse Resp BP Pulse Ox 12/07/21 15:52 36.5 C 80 18 120/63 95 Laboratory Results Short CBC 12/07/21 Range/Units 08:16 WBC 7.75 (4.8-10.8) K/uL Hgb 9.0 L (12.0-16.0) g/dL Hct 29.4 L (37-47) % Plt Count 538 H (130-400) K/uL BMP 12/07/21 08:16 Sodium 132 L Potassium 4.2 Chloride 102 Carbon Dioxide 25 BUN 20 Creatinine 0.64 Glucose 86 Calcium 9.0 Medications Administered Current Inpatient Medications Acetaminophen (Acetaminophen 325 Mg Tab) 650 mg PO Q4H PRN PRN Reason: mild pain Stop: 12/13/21 05:33 Last Admin: 12/05/21 20:29 Dose: 650 mg Documented by: Aspirin (Aspirin 81 Mg Ectab) 81 mg PO QAM [facility] Stop: 12/13/21 08:59 Last Admin: 12/03/21 07:25 Dose: 81 mg Documented by: Atorvastatin Calcium (Atorvastatin 10 Mg Tab) 10 mg PO HS [facility] Stop: 12/13/21 20:59 Last Admin: 12/07/21 21:34 Dose: 10 mg Documented by: Buspirone HCl (Buspirone 5 Mg Tab) 20 mg PO BID [facility] Stop: 01/01/22 20:59 Last Admin: 12/07/21 21:33 Dose: 20 mg Documented by: Cyclobenzaprine HCl (Cyclobenzaprine Hcl 10 Mg Tab) 10 mg PO Q8H PRN PRN Reason: MUSCLE SPASMS Stop: 12/13/21 05:33 Last Admin: 12/07/21 16:45 Dose: 10 mg Documented by: Digoxin (Digoxin 0.125 Mg Tab) 0.125 mg PO QPM [facility] Stop: 12/13/21 20:59 Last Admin: 12/07/21 21:34 Dose: 0.125 mg Documented by: Docusate Sodium (Docusate Sodium 100 Mg Cap) 100 mg PO BID [facility] Stop: 12/19/21 20:59 Last Admin: 12/07/21 21:35 Dose: Not Given Documented by: Duloxetine HCl (Duloxetine Hcl 60 Mg Cap) 60 mg PO BID [facility] Stop: 12/13/21 08:59 Last Admin: 12/07/21 21:33 Dose: 60 mg Documented by: Furosemide (Furosemide 40 Mg Tab) 40 mg PO QAM [facility] Stop: 12/23/21 08:59 Last Admin: 11/24/21 08:07 Dose: 40 mg Documented by: Heparin Sodium (Porcine) (Heparin Sod 5,000 Unit/0.5 Ml Vial) 7,500 units SQ Q8 [facility] Stop: 01/06/22 21:59 Last Admin: 12/07/21 21:36 Dose: 7,500 units Documented by: Levothyroxine Sodium (Levothyroxine Sodium 50 Mcg Tablet) 50 mcg PO DAILYBB [facility] Stop: 12/14/21 06:29 Last Admin: 12/07/21 06:03 Dose: 50 mcg Documented by: Lidocaine (Lidocaine 5% 1 Patch) 1 patch TD QAM [facility] Stop: 12/21/21 08:59 Last Admin: 12/07/21 07:37 Dose: Not Given Documented by: Lorazepam (Lorazepam 0.5 Mg Tab) 0.5 mg PO Q12H PRN PRN Reason: Anxiety Stop: 12/31/21 08:29 Last Admin: 12/07/21 21:31 Dose: 0.5 mg Documented by: Metoprolol Succinate (Metoprolol Succ 50mg Ext Rel Tab) 100 mg PO BID [facility] Stop: 12/15/21 20:59 Last Admin: 12/07/21 21:34 Dose: 100 mg Documented by: Miscellaneous (Remove Lidoderm Patch) 1 ea N/A DAILY@2100 [facility] Stop: 12/21/21 20:59 Last Admin: 12/07/21 21:33 Dose: Not Given Documented by: Nitroglycerin (Nitroglycerin Sl 0.4 Mg/Tab Tab) 0.4 mg SL UD PRN PRN Reason: Chest Pain Stop: 12/13/21 05:33 Ondansetron HCl (Ondansetron 4 Mg Od Tab) 4 mg PO Q6H PRN PRN Reason: Nausea Stop: 01/05/22 18:20 Oxycodone HCl (Oxycodone Hcl Ir 5 Mg Tab (Immediate Release)) 7.5 mg PO Q4H PRN PRN Reason: moderate to severe Stop: 12/17/21 17:03 Last Admin: 12/07/21 21:02 Dose: 7.5 mg Documented by: Pantoprazole Sodium (Pantoprazole 40 Mg Tab) 40 mg PO DAILY [facility] Stop: 12/13/21 08:59 Last Admin: 12/07/21 07:36 Dose: 40 mg Documented by: Polyethylene Glycol (Polyethylene (Miralax) 17 Gm Pack) 17 gm PO DAILY PRN PRN Reason: Constipation Stop: 12/13/21 05:33 Last Admin: 12/03/21 07:34 Dose: 17 gm Documented by: Ropinirole HCl (Ropinirole Hcl 1 Mg Tablet) 1 mg PO TID [facility] Stop: 12/13/21 08:59 Last Admin: 12/07/21 21:32 Dose: 1 mg Documented by: Ropinirole HCl (Ropinirole Hcl 0.25 Mg Tablet) 0.25 mg PO [facility] Stop: 12/13/21 20:59 Last Admin: 12/07/21 21:32 Dose: 0.25 mg Documented by: Topiramate (Topiramate 100 Mg Tab) 100 mg PO BID [facility] Stop: 12/13/21 08:59 Last Admin: 12/07/21 21:35 Dose: 100 mg Documented by: Zolpidem Tartrate (Zolpidem Tartrate 10 Mg Tab) 10 mg PO [facility] Stop: 12/19/21 20:59 Last Admin: 12/07/21 21:31 Dose: 10 mg Documented by:
[2021-12-08] MEDS: ACETAMINOPHEN 325 MG TAB PO PRN ×3 (01:57→19:37)
[2021-12-08] MEDS: CYCLOBENZAPRINE HCL 10 MG TAB PO PRN ×3 (01:57→19:37)
[2021-12-08] MEDS: LEVOTHYROXINE SODIUM 50 MCG TABLET PO SCH (05:07)
[2021-12-08] MEDS: oxyCODONE HCL IR 5 MG TAB (IMMEDIATE RELEASE) PO PRN ×3 (05:07→22:09)
[2021-12-08] MEDS: HEPARIN SOD 5,000 UNIT/0.5 ML VIAL SQ SCH ×3 (05:12→22:11)
[2021-12-08] MEDS: rOPINIRole HCL 1 MG TABLET PO SCH ×3 (08:15→22:03)
[2021-12-08] MEDS: METOPROLOL SUCC 50MG EXT REL TAB PO SCH ×2 (08:15→22:10)
[2021-12-08] MEDS: DULoxetine HCL 60 MG CAP PO SCH ×2 (08:15→22:10)
[2021-12-08] MEDS: busPIRone 5 MG TAB PO SCH ×2 (08:15→22:10)
[2021-12-08] MEDS: PANTOprazole 40 MG TAB PO SCH (08:15)
[2021-12-08] MEDS: DOCUSATE SODIUM 100 MG CAP PO SCH ×2 (08:16→22:10)
[2021-12-08] MEDS: TOPIRAMATE 100 MG TAB PO SCH ×2 (08:16→22:10)
[2021-12-08] MEDS: LIDOCAINE 5% 1 PATCH TD SCH (08:16)
[2021-12-08] MEDS: LORazepam 0.5 MG TAB PO PRN (09:24)
--- NOTE | 2021-12-08 16:53 | Hospitalist Progress Note ---
Date of Service December 08, 2021 Assessment & Plan (1) Atrial fibrillation with RVR: Plan: Seems to have history of longstanding persistent atrial fibrillation: Rate control Cardiology consulted Amiodarone and cardizem discontinued ECHO showed no LV wall motion abnormality with EF 55-60% cardizem drip stopped IV heparin drip was discontinued due to drop on hemoglobin No anticoagulation (risks greater than the benefit) patient refused any anticoagulant as well Continue metoprolol 100mg BID and digoxin 125mcg Cardiology follow up (outpt) arranged UTI Urine cx grew gram negative bacilli- Klebsiella Resistant to Rocephin Denied any urinary symptoms completed the course Ertapenem Resolved Anemia Baseline Hgb btw 8 to 9, current Hgb stable Last colonoscopy was on 08/17- normal. GI recommended 10 yrs follow Patient reports history of thalassemia cont further workup/monitoring as outpatient Hyponatremia current Na 132 Possible related to diuretic, psych meds Consider lasix 40mg 3x weekly once discharge If Na continues to drop will hold lasix and consult nephrology currently stable. Continue monitor BMP Depression Anxiety Bipolar disorder Denies any suicide ideation Psych consulted - recommended to continue home psych meds 1 to 1 observation discontinued Buspar increased to 20mg BID, will continue Ativan increased to 0.5 mg BID prn, however, out of concerns for additional addiction issues, this has been stopped. Hypothyroidism TSH 22 Levothyroxine increased to 50mcg Check TSH in 4 to 6 weeks B/L LE edema - resolved Doppler of LE extremity showed no DVT Continued Lasix 40mg BID, then switched to daily BP lower and edema resolved - will hold lasix Right hip pain -Patient reports that she had both hip replaced in [place] several months ago -She had a fall in September and was seen by her surgeon for that, she reports there was nothing to do -Hip x-ray was obtained here, and reviewed CT right hip showed Right hip total joint arthroplasty with evidence of hardware loosening involving the acetabular cup and acetabular fixation screws. 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 Ortho consulted recommended if a revision arthroplasty needs to be performed it would need to be done at a tertiary care facility due to the patient's underlying health issues. Contacted [facility] (Dr. Hill) regarding transfer for the procedure. This was d eemed not urgent and to be done as outpatient Dr. Hill advised it takes preparation to do a revision and pt can call the [facility] [place] for the appointment at [phone] Carroll Will need outpatient follow up with Mel to schedule for the Hip Revision Interventional radiology here attempted a hip aspiration, but not enough fluid was able to collect Hip aspiration fluid cx and gram stain negative Contacted [facility] Transfer service discussed case with Ortho Dr. Selam Doss said that since there is no acute fracture or infection he will make the ortho joint team contact me to see when they can schedule her to be seen outpatient Dr. Simon reiterated this procedure should be performed as outpatient. Currently there are no SNFs accepting of her with loose hardware. PT evaluated her ability today and case management working on a disposition solution. She ambulated 30 feet with the walker and was able to stand independently with her walker SNF recommended. Continues on oxycodone and flexeril consistently--reporting worsening pain so repeating CT hip this evening. Will follow Hx of PE Pt was on coumadin several years ago Not on any anticoagulant currently -pt declines as above. Vergara's esophagus-chronic, stable Continue omeprazole per home regimen. Morbid obesity BMI 51.8 Counseling on weight loss Sleep apnea: Not on any CPAP Heparin for DVT prophylaxis Full Code Dispo- uncertain at this time. She is stable for discharge from a medical standpoint as long as she has a safe disposition. Shala Leary DO [facility] Hospitalist Admission and Anticipated Discharge Date Admission Date: November 13, 2021 Subjective 61 yo F with a h/o afib presented with RVR. She remains in pain today in her right hip. She states the pain is severe, however, after grabbin gher hip and g rimacing, she will quickly sit straight up and pop into a disposition that is smiling and helpful to let me examine her. She went from supine to sitting position very fast when I came into the door tonight and didn't grimace in pain while doing this. She has been walking when she wants to. She said her anxiety is bad. She is not on lorazepam prior to arrival yet has taken this consistently q12h as offered. She already has an addiction to narcotics reported over the past several years. She reports being set up in the pain clinic for regular [place] at one point. She cannot tell me what she took for pain prior to admission and PDMP reflects no record of any narcotics since moving to the [facility]. Review of Systems Review of Systems: All systems were reviewed and negative except as indicated on subjective above. Physical Exam Physical Exam: CONSTITUTIONAL: obesity, vitals as above, generally well- appearing, NAD EYES: normal conjunctivae, no scleral icterus, +glasses ENT: external ear and nose normal, MMM NECK: trachea midline, RESPIRATORY: clear to auscultation bilaterally, no crackles, rales or wheezes, normal respiratory effort CARDIOVASCULAR: irregular rate and irregular rhythm, S1 and 2 heard without murmurs, gallops or rubs, no JVD, no peripheral edema CHEST: inspection of chest was normal GASTROINTESTINAL: soft, nontender, ND, no guarding MUSCULOSKELETAL: strength 5/5 throughout, head is normocephalic and atraumatic, neck supple, normal palpation of chest wall without tenderness SKIN: warm and dry NEUROLOGIC: CN 2-12 grossly intact, no sensory deficit, normal cognition, normal speech, no tremor PSYCHIATRIC: alert cooperative and oriented to person, place and time. Euthymic mood, makes good eye contact, language grossly intact, recent and remote memory grossly intact. Results & Data Results & Data ([facility]) Vital Signs (Past 12 Hours) Vital Signs Temp Pulse Resp BP Pulse Ox 12/08/21 15:27 36.5 C 83 18 102/68 95 12/08/21 07:51 36.8 C 70 18 112/76 96 Medications Administered Current Inpatient Medications Acetaminophen (Acetaminophen 325 Mg Tab) 650 mg PO Q4H PRN PRN Reason: mild pain Stop: 12/13/21 05:33 Last Admin: 12/08/21 11:53 Dose: 650 mg Documented by: Aspirin (Aspirin 81 Mg Ectab) 81 mg PO QAM [facility] Stop: 12/13/21 08:59 Last Admin: 12/03/21 07:25 Dose: 81 mg Documented by: Atorvastatin Calcium (Atorvastatin 10 Mg Tab) 10 mg PO HS [facility] Stop: 12/13/21 20:59 Last Admin: 12/07/21 21:34 Dose: 10 mg Documented by: Buspirone HCl (Buspirone 5 Mg Tab) 20 mg PO BID [facility] Stop: 01/01/22 20:59 Last Admin: 12/08/21 08:15 Dose: 20 mg Documented by: Cyclobenzaprine HCl (Cyclobenzaprine Hcl 10 Mg Tab) 10 mg PO Q8H PRN PRN Reason: MUSCLE SPASMS Stop: 12/13/21 05:33 Last Admin: 12/08/21 11:53 Dose: 10 mg Documented by: Digoxin (Digoxin 0.125 Mg Tab) 0.125 mg PO QPM [facility] Stop: 12/13/21 20:59 Last Admin: 12/07/21 21:34 Dose: 0.125 mg Documented by: Docusate Sodium (Docusate Sodium 100 Mg Cap) 100 mg PO BID [facility] Stop: 12/19/21 20:59 Last Admin: 12/08/21 08:16 Dose: 100 mg Documented by: Duloxetine HCl (Duloxetine Hcl 60 Mg Cap) 60 mg PO BID [facility] Stop: 12/13/21 08:59 Last Admin: 12/08/21 08:15 Dose: 60 mg Documented by: Furosemide (Furosemide 40 Mg Tab) 40 mg PO QAM [facility] Stop: 12/23/21 08:59 Last Admin: 11/24/21 08:07 Dose: 40 mg Documented by: Heparin Sodium (Porcine) (Heparin Sod 5,000 Unit/0.5 Ml Vial) 7,500 units SQ Q8 [facility] Stop: 01/06/22 21:59 Last Admin: 12/08/21 14:13 Dose: 7,500 units Documented by: Levothyroxine Sodium (Levothyroxine Sodium 50 Mcg Tablet) 50 mcg PO DAILYBB [facility] Stop: 12/14/21 06:29 Last Admin: 12/08/21 05:07 Dose: 50 mcg Documented by: Lidocaine (Lidocaine 5% 1 Patch) 1 patch TD QAM [facility] Stop: 12/21/21 08:59 Last Admin: 12/08/21 08:16 Dose: Not Given Documented by: Lorazepam (Lorazepam 0.5 Mg Tab) 0.5 mg PO Q12H PRN PRN Reason: Anxiety Stop: 12/31/21 08:29 Last Admin: 12/08/21 09:24 Dose: 0.5 mg Documented by: Metoprolol Succinate (Metoprolol Succ 50mg Ext Rel Tab) 100 mg PO BID [facility] Stop: 12/15/21 20:59 Last Admin: 12/08/21 08:15 Dose: 100 mg Documented by: Miscellaneous (Remove Lidoderm Patch) 1 ea N/A DAILY@2100 [facility] Stop: 12/21/21 20:59 Last Admin: 12/07/21 21:33 Dose: Not Given Documented by: Nitroglycerin (Nitroglycerin Sl 0.4 Mg/Tab Tab) 0.4 mg SL UD PRN PRN Reason: Chest Pain Stop: 12/13/21 05:33 Ondansetron HCl (Ondansetron 4 Mg Od Tab) 4 mg PO Q6H PRN PRN Reason: Nausea Stop: 01/05/22 18:20 Oxycodone HCl (Oxycodone Hcl Ir 5 Mg Tab (Immediate Release)) 7.5 mg PO Q8H PRN PRN Reason: moderate to severe pain Stop: 12/20/21 18:21 Last Admin: 12/08/21 14:11 Dose: 7.5 mg Documented by: Pantoprazole Sodium (Pantoprazole 40 Mg Tab) 40 mg PO DAILY [facility] Stop: 12/13/21 08:59 Last Admin: 12/08/21 08:15 Dose: 40 mg Documented by: Polyethylene Glycol (Polyethylene (Miralax) 17 Gm Pack) 17 gm PO DAILY PRN PRN Reason: Constipation Stop: 12/13/21 05:33 Last Admin: 12/03/21 07:34 Dose: 17 gm Documented by: Ropinirole HCl (Ropinirole Hcl 1 Mg Tablet) 1 mg PO TID [facility] Stop: 12/13/21 08:59 Last Admin: 12/08/21 14:09 Dose: 1 mg Documented by: Ropinirole HCl (Ropinirole Hcl 0.25 Mg Tablet) 0.25 mg PO HS [facility] Stop: 12/13/21 20:59 Last Admin: 12/07/21 21:32 Dose: 0.25 mg Documented by: Topiramate (Topiramate 100 Mg Tab) 100 mg PO BID [facility] Stop: 12/13/21 08:59 Last Admin: 12/08/21 08:16 Dose: 100 mg Documented by: Zolpidem Tartrate (Zolpidem Tartrate 10 Mg Tab) 10 mg PO HS [facility] Stop: 12/19/21 20:59 Last Admin: 12/07/21 21:31 Dose: 10 mg Documented by:
--- NOTE | 2021-12-08 20:52 | CT Scan Report ---
CT hip RT wo con CLINICAL HISTORY: worsened pain, h/o loosened hardware COMPARISON STUDY: 11/28/2021 CT DOSE: 1474.50 mGy.cm TECHNIQUE: Standard CT of the right hip is performed without IV contrast. Multiplanar reconstruction is performed. A dose lowering technique was utilized adhering to the principles of ALARA. FINDINGS: Bones: Compared to previous examination, there is no significant interval change. There is no evidenc e for an acute fracture or dislocation. There are no lytic or blastic lesions. Joints: The patient is again status post total hip replacement with noncemented components. There is again lucency seen surrounding the screws of the acetabular component characteristic of loosening. Th e femoral component appears intact. The bones are in anatomic alignment. Soft tissues: There is no focal soft tissue swelling. There are no focal fluid collections. IMPRESSION: 1. No acute osseous pathology. 2. No significant interval change from the previous study with findings again characteristic of loose tyree of the acetabular component of the patient's total hip replacement. ACT 112: Negative or not required by law. Electronically signed by: Vicente Holden M.D. 12/08/2021 8:50 PM
[2021-12-08] MEDS: DIGOXIN 0.125 MG TAB PO SCH (22:03)
[2021-12-08] MEDS: ATORVASTATIN 10 MG TAB PO SCH (22:09)
[2021-12-08] MEDS: rOPINIRole HCL 0.25 MG TABLET PO SCH (22:09)
[2021-12-08] MEDS: ZOLPIDEM TARTRATE 10 MG TAB PO SCH (22:09)
[2021-12-09] MEDS: ACETAMINOPHEN 325 MG TAB PO PRN (04:17)
[2021-12-09] MEDS: LEVOTHYROXINE SODIUM 50 MCG TABLET PO SCH (06:04)
[2021-12-09] MEDS: HEPARIN SOD 5,000 UNIT/0.5 ML VIAL SQ SCH ×3 (06:05→20:51)
[2021-12-09] MEDS: busPIRone 5 MG TAB PO SCH ×2 (08:20→20:50)
[2021-12-09] MEDS: PANTOprazole 40 MG TAB PO SCH (08:20)
[2021-12-09] MEDS: LIDOCAINE 5% 1 PATCH TD SCH (08:23)
[2021-12-09] MEDS: DOCUSATE SODIUM 100 MG CAP PO SCH ×2 (08:23→20:50)
[2021-12-09] MEDS: DULoxetine HCL 60 MG CAP PO SCH ×2 (08:24→20:51)
[2021-12-09] MEDS: METOPROLOL SUCC 50MG EXT REL TAB PO SCH ×2 (08:24→20:51)
[2021-12-09] MEDS: rOPINIRole HCL 1 MG TABLET PO SCH ×3 (08:24→20:50)
[2021-12-09] MEDS: TOPIRAMATE 100 MG TAB PO SCH ×2 (08:24→20:51)
[2021-12-09] MEDS: oxyCODONE HCL IR 5 MG TAB (IMMEDIATE RELEASE) PO PRN ×2 (08:33→17:05)
[2021-12-09] MEDS: ONDANSETRON 4 MG OD TAB PO PRN ×2 (11:54→21:42)
--- NOTE | 2021-12-09 17:50 | Hospitalist Progress Note ---
Date of Service December 09, 2021 Assessment & Plan (1) Atrial fibrillation with RVR: Plan: Afib RVR H/O Longstanding persistent atrial fibrillation: Appreciate Cardiology Input Amiodarone and Cardizem discontinued ECHO showed no LV wall motion abnormality with EF 55-60% IV heparin drip was discontinued due to drop on hemoglobin No anticoagulation (risks greater than the benefit) Patient refused Anticoagulant Continue metoprolol 100mg BID and digoxin 125mcg Needs follow up with Cardiology upon discharge Currently rate controlled UTI Urine Cx: Klebsiella pneumonia ESBL completed the course Ertapenem Resolved Chronic Anemia Hb Stable Last colonoscopy was on 08/17- normal. GI recommended 10 yrs follow Patient reports history of thalassemia Further management as outpatient Hyponatremia Possible related to diuretic, psych meds Consider lasix 40mg 3x weekly once discharge Sodium 132 Monitor Depression Anxiety Bipolar disorder Denies any suicidal ideation Appreciate Psych Input Buspar increased to 20mg BID Also on duloxetine Ativan daily as needed Hypothyroidism TSH 22 Levothyroxine Increased to 50mcg Needs repeat TSH in 4 to 6 weeks B/L LE edema Doppler of LE extremity showed no DVT Improved Lasix PRN As per Prior hospitalist with few changes: Right hip pain H/O Reported B/L hip replacement in [place] many months ago as per patient H/O Fall in September CT Right Hip: Right hip total joint arthroplasty with evidence of hardware loosening involving the acetabular cup and acetabular fixation screws. 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 Ortho consulted recommended if a revision arthroplasty needs to be performed it would need to be done at a tertiary care facility due to the patient's underlying health issues. Contacted [facility] (Dr. Hill) regarding transfer for the procedure. This was deemed not urgent and to be done as outpatient Dr. Hill advised it takes preparation to do a revision and pt [facility] for the appointment at [phone] Carroll Will need outpatient follow up with Mel to schedule for the Hip Revision Interventional radiology here attempted a hip aspiration, but not enough fluid was able to collect Hip aspiration fluid cx and gram stain negative Contacted [facility] Transfer service discussed case with Ortho Dr. Selam Doss said that since there is no acute fracture or infection he will make the ortho joint team contact me to see when they can schedule her to be seen outpatient Dr. Simon reiterated this procedure should be performed as outpatient. Currently there are no SNFs accepting of her with loose hardware. Continue PT/OT:SNF recommended. On Oxycodone and flexeril for pain control Repeat CT on 12/08/21:No acute osseous pathology. No significant interval change from the previous study with findings again characteristic of loosening of the acetabular component of the patient's total hip replacement. H/O PE Pt was on coumadin manyl years ago Not on any anticoagulant currently Vergara's esophagus Continue PPI Morbid obesity BMI 51.8 Counseling on weight loss Sleep apnea: Not on any CPAP DVT Px: Heparin SQ Code Status Full Code Disposition Case management to help with discharge planning Stable for discharge medically Admission and Anticipated Discharge Date Admission Date: November 13, 2021 Subjective Patient is seen and examined at bedside States having right hip pain associated with nausea Denies any chest pain, dyspnea, dizziness Offers no other complaints Review of Systems Review of Systems: All systems reviewed & are unremarkable except as noted in Subjective Physical Exam Physical Exam: Physical Exam: Vitals signs as noted above General Appearance:Morbidly Obese, no apparent distress Head: normocephalic, Atraumatic Eyes: normal inspection, EOMI Neck: supple, Trachea midline Respiratory/Chest: Normal breath sounds, CTA, No accessory muscle use Cardiovascular: S1, S2, No murmur Abdomen/GI:Soft, Non tender, Bowel sounds present Extremities/Musculoskeletal:normal inspection, no edema Neurologic/Psych:AAOX3, grossly no focal neurological deficits Skin: normal color, warm
[2021-12-09] MEDS: DIGOXIN 0.125 MG TAB PO SCH (20:50)
[2021-12-09] MEDS: rOPINIRole HCL 0.25 MG TABLET PO SCH (20:50)
[2021-12-09] MEDS: ATORVASTATIN 10 MG TAB PO SCH (20:51)
[2021-12-09] MEDS: LORazepam 0.5 MG TAB PO PRN (21:01)
[2021-12-09] MEDS: ZOLPIDEM TARTRATE 10 MG TAB PO SCH (22:43)
[2021-12-10] MEDS: oxyCODONE HCL IR 5 MG TAB (IMMEDIATE RELEASE) PO PRN ×3 (03:20→19:44)
[2021-12-10] MEDS: HEPARIN SOD 5,000 UNIT/0.5 ML VIAL SQ SCH ×3 (05:47→21:35)
[2021-12-10] MEDS: LEVOTHYROXINE SODIUM 50 MCG TABLET PO SCH (05:48)
[2021-12-10] MEDS: ACETAMINOPHEN 325 MG TAB PO PRN ×2 (08:26→14:36)
[2021-12-10] MEDS: CYCLOBENZAPRINE HCL 10 MG TAB PO PRN ×2 (08:26→16:31)
[2021-12-10] MEDS: rOPINIRole HCL 1 MG TABLET PO SCH ×3 (08:29→21:32)
[2021-12-10] MEDS: LIDOCAINE 5% 1 PATCH TD SCH (08:29)
[2021-12-10] MEDS: DULoxetine HCL 60 MG CAP PO SCH ×2 (08:29→21:34)
[2021-12-10] MEDS: DOCUSATE SODIUM 100 MG CAP PO SCH ×2 (08:29→21:34)
[2021-12-10] MEDS: TOPIRAMATE 100 MG TAB PO SCH ×2 (08:29→21:34)
[2021-12-10] MEDS: METOPROLOL SUCC 50MG EXT REL TAB PO SCH ×2 (08:30→21:32)
[2021-12-10] MEDS: PANTOprazole 40 MG TAB PO SCH (08:30)
[2021-12-10] MEDS: busPIRone 5 MG TAB PO SCH ×2 (08:30→21:34)
[2021-12-10] MEDS: POLYETHYLENE (MIRALAX) 17 GM PACK PO PRN (14:35)
--- NOTE | 2021-12-10 17:12 | Hospitalist Progress Note ---
Date of Service December 10, 2021 Assessment & Plan (1) Atrial fibrillation with RVR: Plan: Afib RVR H/O Longstanding persistent atrial fibrillation: Appreciate Cardiology Input Amiodarone and Cardizem discontinued ECHO showed no LV wall motion abnormality with EF 55-60% IV heparin drip was discontinued due to drop on hemoglobin No anticoagulation (risks greater than the benefit) Patient refused Anticoagulant Continue metoprolol 100mg BID and digoxin 125mcg Needs follow up with Cardiology upon discharge Currently rate controlled Waiting for placement UTI Urine Cx: Klebsiella pneumonia ESBL completed the course Ertapenem Resolved Chronic Anemia Hb Stable Last colonoscopy was on 08/17- normal. GI recommended 10 yrs follow Patient reports history of thalassemia Further management as outpatient Hyponatremia Possible related to diuretic, psych meds Consider lasix 40mg 3x weekly once discharge Sodium 132 Monitor Depression Anxiety Bipolar disorder Denies any suicidal ideation Appreciate Psych Input Buspar increased to 20mg BID Also on duloxetine Ativan daily as needed Hypothyroidism TSH 22 Levothyroxine Increased to 50mcg Needs repeat TSH in 4 to 6 weeks B/L LE edema Doppler of LE extremity showed no DVT Improved Lasix PRN As per Prior hospitalist with few changes: Right hip pain H/O Reported B/L hip replacement in [place] many months ago as per patient H/O Fall in September CT Right Hip: Right hip total joint arthroplasty with evidence of hardware loosening involving the acetabular cup and acetabular fixation screws. 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 Ortho consulted recommended if a revision arthroplasty needs to be performed it would need to be done at a tertiary care facility due to the patient's underlying health issues. Contacted [facility] (Dr. Hill) regarding transfer for the procedure. This was deemed not urgent and to be done as outpatient Dr. Hill advised it takes preparation to do a revision and pt can call the [facility] for the appointment at [phone] Carroll Will need outpatient follow up with Mel to schedule for the Hip Revision Interventional radiology here attempted a hip aspiration, but not enough fluid was able to collect Hip aspiration fluid cx and gram stain negative [facility] discussed case with Ortho Dr. Selam Doss said that since there is no acute fracture or infection he will make the ortho joint team contact me to see when they can schedule her to be seen outpatient Dr. Simon reiterated this procedure should be performed as outpatient. Currently there are no SNFs accepting of her with loose hardware. Continue PT/OT:SNF recommended. On Oxycodone and flexeril for pain control Repeat CT on 12/08/21:No acute osseous pathology. No significant interval change from the previous study with findings again characteristic of loosening of the acetabular component of the patient's total hip replacement. H/O PE Pt was on coumadin manyl years ago Not on any anticoagulant currently Vergara's esophagus Continue PPI Morbid obesity BMI 51.8 Counseling on weight loss Sleep apnea: Not on any CPAP DVT Px: Heparin SQ Code Status Full Code Disposition Case management to help with discharge planning Stable for discharge medically Admission and Anticipated Discharge Date Admission Date: November 13, 2021 Subjective Patient is seen and examined at bedside Nausea resolved Right hip pain is controlled No new complaints Denies any chest pain, dyspnea, dizziness Waiting for placement Review of Systems Review of Systems: All systems reviewed & are unremarkable except as noted in Subjective Physical Exam Physical Exam: Physical Exam: Vitals signs as noted above General Appearance:Morbidly Obese, no apparent distress Head: normocephalic, Atraumatic Eyes: normal inspection, EOMI Neck: supple, Trachea midline Respiratory/Chest: Normal breath sounds, CTA, No accessory muscle use Cardiovascular: S1, S2, No murmur Abdomen/GI:Soft, Non tender, Bowel sounds present Extremities/Musculoskeletal:normal inspection, no edema Neurologic/Psych:AAOX3, grossly no focal neurological deficits Skin: normal color, warm Results & Data Results & Data ([facility]) Vital Signs (Past 12 Hours) Vital Signs Temp Pulse Resp BP Pulse Ox 12/10/21 08:38 36.9 C 84 18 124/72 95
[2021-12-10] MEDS: rOPINIRole HCL 0.25 MG TABLET PO SCH (21:32)
[2021-12-10] MEDS: DIGOXIN 0.125 MG TAB PO SCH (21:34)
[2021-12-10] MEDS: ATORVASTATIN 10 MG TAB PO SCH (21:34)
[2021-12-10] MEDS: LORazepam 0.5 MG TAB PO PRN (21:44)
[2021-12-10] MEDS: ZOLPIDEM TARTRATE 10 MG TAB PO SCH (22:21)
[2021-12-11] MEDS: oxyCODONE HCL IR 5 MG TAB (IMMEDIATE RELEASE) PO PRN ×3 (02:30→19:45)
[2021-12-11] MEDS: HEPARIN SOD 5,000 UNIT/0.5 ML VIAL SQ SCH ×3 (04:57→21:57)
[2021-12-11] MEDS: LEVOTHYROXINE SODIUM 50 MCG TABLET PO SCH (04:57)
[2021-12-11] MEDS: LIDOCAINE 5% 1 PATCH TD SCH (08:12)
[2021-12-11] MEDS: DOCUSATE SODIUM 100 MG CAP PO SCH ×2 (08:13→19:46)
[2021-12-11] MEDS: busPIRone 5 MG TAB PO SCH ×2 (08:14→19:47)
[2021-12-11] MEDS: rOPINIRole HCL 1 MG TABLET PO SCH ×3 (08:15→19:46)
[2021-12-11] MEDS: PANTOprazole 40 MG TAB PO SCH (08:15)
[2021-12-11] MEDS: METOPROLOL SUCC 50MG EXT REL TAB PO SCH ×2 (08:15→19:46)
[2021-12-11] MEDS: ACETAMINOPHEN 325 MG TAB PO PRN ×2 (08:15→16:28)
[2021-12-11] MEDS: CYCLOBENZAPRINE HCL 10 MG TAB PO PRN ×2 (08:15→16:28)
[2021-12-11] MEDS: DULoxetine HCL 60 MG CAP PO SCH ×2 (08:15→19:46)
[2021-12-11] MEDS: TOPIRAMATE 100 MG TAB PO SCH ×2 (08:16→19:49)
[2021-12-11] MEDS: POLYETHYLENE (MIRALAX) 17 GM PACK PO PRN (08:56)
[2021-12-11 09:39] LABS: BUN Creatinine Ratio 32.8 (10-20); Calcium 9.3 mg/dl (8.5-10.1); Creatinine Clr Calc Pharmacy 119.1 ml/min; Est GFR (African American) 113.2 ml/min; Est GFR (Non-African American) 97.7 ml/min; Potassium 4.4 mmol/L (3.5-5.1)
--- NOTE | 2021-12-11 19:09 | Hospitalist Progress Note ---
Date of Service December 11, 2021 Assessment & Plan (1) Atrial fibrillation with RVR: Plan: Afib RVR H/O Longstanding persistent atrial fibrillation: Appreciate Cardiology Input Amiodarone and Cardizem discontinued ECHO showed no LV wall motion abnormality with EF 55-60% IV heparin drip was discontinued due to drop on hemoglobin No anticoagulation (risks greater than the benefit) Patient refused Anticoagulant Continue metoprolol 100mg BID and digoxin 125mcg Needs follow up with Cardiology upon discharge Currently rate controlled Waiting for placement Continue current management UTI Urine Cx: Klebsiella pneumonia ESBL completed the course Ertapenem Resolved Chronic Anemia Hb Stable Last colonoscopy was on 08/17- normal. GI recommended 10 yrs follow Patient reports history of thalassemia Further management as outpatient Hyponatremia Possible related to diuretic, psych meds Consider lasix 40mg 3x weekly once discharge Sodium 134 today Monitor Depression Anxiety Bipolar disorder Denies any suicidal ideation Appreciate Psych Input Buspar increased to 20mg BID Also on duloxetine Ativan daily as needed Hypothyroidism TSH 22 Levothyroxine Increased to 50mcg Needs repeat TSH in 4 to 6 weeks B/L LE edema Doppler of LE extremity showed no DVT Improved Lasix PRN As per Prior hospitalist with few changes: Right hip pain H/O Reported B/L hip replacement in [place] many months ago as per patient H/O Fall in September CT Right Hip: Right hip total joint arthroplasty with evidence of hardware loosening involving the acetabular cup and acetabular fixation screws. 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 Ortho consulted recommended if a revision arthroplasty needs to be performed it would need to be done at a tertiary care facility due to the patient's underlying health issues. [place] [facility] [place] regarding transfer for the procedure. This was deemed not urgent and to be done as outpatient Dr. Hill advised it takes preparation to do a revision and pt can call the joint institute for the appointment at [phone] Carroll Will need outpatient follow up with Mel to schedule for the Hip Revision Interventional radiology here attempted a hip aspiration, but not enough fluid was able to collect Hip aspiration fluid cx and gram stain negative Contacted [facility] Transfer service discussed case with Ortho Dr. Selam Doss said that since there is no acute fracture or infection he will make the ortho joint team contact me to see when they can schedule her to be seen outpatient Dr. Simon reiterated this procedure should be performed as outpatient. Currently there are no SNFs accepting of her with loose hardware. Continue PT/OT:SNF recommended. On Oxycodone and flexeril for pain control Repeat CT on 12/08/21:No acute osseous pathology. No significant interval change from the previous study with findings again characteristic of loosening of the acetabular component of the patient's total hip replacement. H/O PE Pt was on coumadin manyl years ago Not on any anticoagulant currently Vergara's esophagus Continue PPI Morbid obesity BMI 51.8 Counseling on weight loss Sleep apnea: Not on any CPAP DVT Px: Heparin SQ Code Status Full Code Disposition Case management to help with discharge planning Stable for discharge medically Admission and Anticipated Discharge Date Admission Date: November 13, 2021 Subjective Patient is seen and examined at bedside Doing well today Right hip pain is controlled Denies any chest pain, dyspnea, dizziness Waiting for placement Review of Systems Review of Systems: All systems reviewed & are unremarkable except as noted in Subjective Physical Exam Physical Exam: Physical Exam: Vitals signs as noted above General Appearance:Morbidly Obese, no apparent distress Head: normocephalic, Atraumatic Eyes: normal inspection, EOMI Neck: supple, Trachea midline Respiratory/Chest: Normal breath sounds, CTA, No accessory muscle use Cardiovascular: S1, S2, No murmur Abdomen/GI:Soft, Non tender, Bowel sounds present Extremities/Musculoskeletal:normal inspection, no edema Neurologic/Psych:AAOX3, grossly no focal neurological deficits Skin: normal color, warm Results & Data Results & Data ([facility]) Vital Signs (Past 12 Hours) Vital Signs Temp Pulse Resp BP Pulse Ox 12/11/21 16:40 36.9 C 81 18 123/87 96 12/11/21 07:37 36.5 C 76 18 101/69 94 Laboratory Results [facility] 12/11/21 08:09 Sodium 134 L Potassium 4.4 Chloride 101 Carbon Dioxide 25 BUN 21 Creatinine 0.64 Glucose 90 Calcium 9.3
[2021-12-11] MEDS: rOPINIRole HCL 0.25 MG TABLET PO SCH (19:47)
[2021-12-11] MEDS: DIGOXIN 0.125 MG TAB PO SCH (19:48)
[2021-12-11] MEDS: ATORVASTATIN 10 MG TAB PO SCH (19:48)
[2021-12-11] MEDS: LORazepam 0.5 MG TAB PO PRN (21:00)
[2021-12-11] MEDS: ZOLPIDEM TARTRATE 10 MG TAB PO SCH (21:56)
[2021-12-12] MEDS: LEVOTHYROXINE SODIUM 50 MCG TABLET PO SCH (05:50)
[2021-12-12] MEDS: HEPARIN SOD 5,000 UNIT/0.5 ML VIAL SQ SCH ×3 (05:50→21:52)
[2021-12-12] MEDS: oxyCODONE HCL IR 5 MG TAB (IMMEDIATE RELEASE) PO PRN ×2 (05:55→20:44)
[2021-12-12] MEDS: busPIRone 5 MG TAB PO SCH ×2 (08:02→20:43)
[2021-12-12] MEDS: DOCUSATE SODIUM 100 MG CAP PO SCH ×2 (08:02→20:43)
[2021-12-12] MEDS: rOPINIRole HCL 1 MG TABLET PO SCH ×3 (08:02→20:43)
[2021-12-12] MEDS: PANTOprazole 40 MG TAB PO SCH (08:02)
[2021-12-12] MEDS: TOPIRAMATE 100 MG TAB PO SCH ×2 (08:03→20:44)
[2021-12-12] MEDS: METOPROLOL SUCC 50MG EXT REL TAB PO SCH ×2 (08:03→20:44)
[2021-12-12] MEDS: LIDOCAINE 5% 1 PATCH TD SCH (08:04)
[2021-12-12] MEDS: DULoxetine HCL 60 MG CAP PO SCH ×2 (08:04→20:43)
[2021-12-12] MEDS ORDERED: oxyCODONE HCL IR 5 MG TAB (IMMEDIATE RELEASE) PO PRN (11:47)
[2021-12-12] MEDS: CYCLOBENZAPRINE HCL 10 MG TAB PO PRN (12:04)
[2021-12-12] MEDS: ACETAMINOPHEN 325 MG TAB PO PRN ×2 (12:04→19:27)
[2021-12-12] MEDS: POLYETHYLENE (MIRALAX) 17 GM PACK PO PRN (14:00)
--- NOTE | 2021-12-12 17:44 | Hospitalist Progress Note ---
Date of Service December 12, 2021 Assessment & Plan (1) Atrial fibrillation with RVR: Plan: Afib RVR H/O Longstanding persistent atrial fibrillation: Appreciate Cardiology Input Amiodarone and Cardizem discontinued ECHO showed no LV wall motion abnormality with EF 55-60% IV heparin drip was discontinued due to drop on hemoglobin No anticoagulation (risks greater than the benefit) Patient refused Anticoagulant Continue metoprolol 100mg BID and digoxin 125mcg Needs follow up with Cardiology upon discharge Currently rate controlled Waiting for placement UTI Urine Cx: Klebsiella pneumonia ESBL completed the course Ertapenem Resolved Chronic Anemia Hb Stable Last colonoscopy was on 08/17- normal. GI recommended 10 yrs follow Patient reports history of thalassemia Further management as outpatient Hyponatremia Possible related to diuretic, psych meds Consider lasix 40mg 3x weekly once discharge Sodium 134 today Monitor Depression Anxiety Bipolar disorder Denies any suicidal ideation Appreciate Psych Input Buspar increased to 20mg BID Also on duloxetine Ativan daily as needed Hypothyroidism TSH 22 Levothyroxine Increased to 50mcg Needs repeat TSH in 4 to 6 weeks B/L LE edema Doppler of LE extremity showed no DVT Improved Lasix PRN As per Prior hospitalist with few changes: Right hip pain H/O Reported B/L hip replacement in [place] many months ago as per patient H/O Fall in September CT Right Hip: Right hip total joint arthroplasty with evidence of hardware loosening involving the acetabular cup and acetabular fixation screws. 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 Ortho consulted recommended if a revision arthroplasty needs to be performed it would need to be done at a tertiary care facility due to the patient's underlying health issues. Contacted [facility] (Dr. Hill) regarding transfer for the procedure. This was deemed not urgent and to be done as outpatient Dr. Hill advised it takes preparation to do a revision and pt can call the joint institute for the appointment at [phone] Carroll Will need outpatient follow up with Mel to schedule for the Hip Revision Interventional radiology here attempted a hip aspiration, but not enough fluid was able to collect Hip aspiration fluid cx and gram stain negative [facility]ed [facility] Transfer service discussed case with Ortho Dr. Selam Doss said that since there is no acute fracture or infection he will make the ortho joint team contact me to see when they can schedule her to be seen outpatient Dr. Simon reiterated this procedure should be performed as outpatient. Currently there are no SNFs accepting of her with loose hardware. Continue PT/OT:SNF recommended. On Oxycodone and flexeril for pain control Repeat CT on 12/08/21:No acute osseous pathology. No significant interval change from the previous study with findings again characteristic of loosening of the acetabular component of the patient's total hip replacement. H/O PE Pt was on coumadin manyl years ago Not on any anticoagulant currently Vergara's esophagus Continue PPI Morbid obesity BMI 51.8 Counseling on weight loss Sleep apnea: Not on any CPAP DVT Px: Heparin SQ Code Status Full Code Disposition Case management to help with discharge planning Stable for discharge medically Admission and Anticipated Discharge Date Admission Date: November 13, 2021 Subjective Patient is seen and examined at bedside No new complaints Reports Right hip pain Denies any chest pain, dyspnea, dizziness Waiting for placement Review of Systems Review of Systems: All systems reviewed & are unremarkable except as noted in Subjective Physical Exam Physical Exam: Physical Exam: Vitals signs as noted above General Appearance:Morbidly Obese, no apparent distress Head: normocephalic, Atraumatic Eyes: normal inspection, EOMI Neck: supple, Trachea midline Respiratory/Chest: Normal breath sounds, CTA, No accessory muscle use Cardiovascular: S1, S2, No murmur Abdomen/GI:Soft, Non tender, Bowel sounds present Extremities/Musculoskeletal:normal inspection, no edema Neurologic/Psych:AAOX3, grossly no focal neurological deficits Skin: normal color, warm Results & Data Results & Data ([facility]) Vital Signs (Past 12 Hours) Vital Signs Temp Pulse Resp BP Pulse Ox 12/12/21 07:45 36.7 C 56 L 18 107/62 99
[2021-12-12] MEDS: ATORVASTATIN 10 MG TAB PO SCH (20:43)
[2021-12-12] MEDS: DIGOXIN 0.125 MG TAB PO SCH (20:43)
[2021-12-12] MEDS: rOPINIRole HCL 0.25 MG TABLET PO SCH (20:43)
[2021-12-12] MEDS: ZOLPIDEM TARTRATE 10 MG TAB PO SCH (21:52)
[2021-12-13] MEDS: oxyCODONE HCL IR 5 MG TAB (IMMEDIATE RELEASE) PO PRN ×4 (02:49→21:30)
[2021-12-13] MEDS: CYCLOBENZAPRINE HCL 10 MG TAB PO PRN ×2 (02:52→13:52)
[2021-12-13] MEDS: LEVOTHYROXINE SODIUM 50 MCG TABLET PO SCH (05:53)
[2021-12-13] MEDS: HEPARIN SOD 5,000 UNIT/0.5 ML VIAL SQ SCH ×3 (05:53→20:19)
[2021-12-13] MEDS: LORazepam 0.5 MG TAB PO PRN (06:12)
[2021-12-13] MEDS: busPIRone 5 MG TAB PO SCH ×2 (07:48→20:19)
[2021-12-13] MEDS: METOPROLOL SUCC 50MG EXT REL TAB PO SCH ×2 (07:48→20:18)
[2021-12-13] MEDS: LIDOCAINE 5% 1 PATCH TD SCH (07:49)
[2021-12-13] MEDS: DOCUSATE SODIUM 100 MG CAP PO SCH ×2 (07:49→20:18)
[2021-12-13] MEDS: PANTOprazole 40 MG TAB PO SCH (10:39)
[2021-12-13] MEDS: TOPIRAMATE 100 MG TAB PO SCH ×2 (10:39→20:18)
[2021-12-13] MEDS: DULoxetine HCL 60 MG CAP PO SCH ×2 (10:39→20:18)
[2021-12-13] MEDS: rOPINIRole HCL 1 MG TABLET PO SCH ×3 (10:39→20:18)
[2021-12-13] MEDS: ACETAMINOPHEN 325 MG TAB PO PRN (12:54)
[2021-12-13] MEDS: ONDANSETRON 4 MG OD TAB PO PRN (14:55)
--- NOTE | 2021-12-13 19:07 | Hospitalist Progress Note ---
Date of Service December 13, 2021 Assessment & Plan (1) Atrial fibrillation with RVR: Plan: Afib RVR H/O Longstanding persistent atrial fibrillation: Appreciate Cardiology Input Amiodarone and Cardizem discontinued ECHO showed no LV wall motion abnormality with EF 55-60% IV heparin drip was discontinued due to drop on hemoglobin No anticoagulation (risks greater than the benefit) Patient refused Anticoagulant Continue metoprolol 100mg BID and digoxin 125mcg Needs follow up with Cardiology upon discharge Currently rate controlled Stable UTI Urine Cx: Klebsiella pneumonia ESBL completed the course Ertapenem Resolved Chronic Anemia Hb Stable Last colonoscopy was on 08/17- normal. GI recommended 10 yrs follow Patient reports history of thalassemia Further management as outpatient Hyponatremia Possible related to diuretic, psych meds Consider lasix 40mg 3x weekly once discharge Sodium 134 today Monitor Depression Anxiety Bipolar disorder Denies any suicidal ideation Appreciate Psych Input Buspar increased to 20mg BID Also on duloxetine Ativan daily as needed Hypothyroidism TSH 22 Levothyroxine Increased to 50mcg Needs repeat TSH in 4 to 6 weeks B/L LE edema Doppler of LE extremity showed no DVT Improved Lasix PRN As per Prior hospitalist with few changes: Right hip pain H/O Reported B/L hip replacement in [place] many months ago as per patient H/O Fall in September CT Right Hip: Right hip total joint arthroplasty with evidence of hardware loosening involving the acetabular cup and acetabular fixation screws. 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 Ortho consulted recommended if a revision arthroplasty needs to be performed it would need to be done at a tertiary care facility due to the patient's underlying health issues. Contact[place] [facility] (Dr. Hill) regarding transfer for the procedure. This was deemed not urgent and to be done as outpatient Dr. Hill advised it takes preparation to do a revision and pt can call the joint institute for the appointment at [phone] Carroll Will need outpatient follow up with Mel to schedule for the Hip Revision Interventional radiology here attempted a hip aspiration, but not enough fluid was able to collect Hip aspiration fluid cx and gram stain negative Contacted [facility] Transfer service discussed case with Ortho Dr. Selam Doss said that since there is no acute fracture or infection he will make the ortho joint team contact me to see when they can schedule her to be seen o utpatient Dr. Simon reiterated this procedure should be performed as outpatient. Currently there are no SNFs accepting of her with loose hardware. Continue PT/OT:SNF recommended. On Oxycodone and flexeril for pain control Repeat CT on 12/08/21:No acute osseous pathology. No significant interval change from the previous study with findings again characteristic of loosening of the a cetabular component of the patient's total hip replacement. H/O PE Pt was on coumadin manyl years ago Not on any anticoagulant currently Vergara's esophagus Continue PPI Morbid obesity BMI 51.8 Counseling on weight loss Sleep apnea: Not on any CPAP DVT Px: Heparin SQ Code Status Full Code Disposition Case management to help with discharge planning Stable for discharge medically Admission and Anticipated Discharge Date Admission Date: November 13, 2021 Subjective Patient is seen and examined at bedside No significant change from yesterday No significant Right hip pain today Denies any chest pain, dyspnea, dizziness Waiting for placement Review of Systems Review of Systems: All systems reviewed & are unremarkable except as noted in Subjective Physical Exam Physical Exam: Physical Exam: Vitals signs as noted above General Appearance:Morbidly Obese, no apparent distress Head: normocephalic, Atraumatic Eyes: normal inspection, EOMI Neck: supple, Trachea midline Respiratory/Chest: Normal breath sounds, CTA, No accessory muscle use Cardiovascular: S1, S2, No murmur Abdomen/GI:Soft, Non tender, Bowel sounds present Extremities/Musculoskeletal:normal inspection, no edema Neurologic/Psych:AAOX3, grossly no focal neurological deficits Skin: normal color, warm Results & Data Results & Data ([facility]) Vital Signs (Past 12 Hours) Vital Signs Temp Pulse Resp BP Pulse Ox 12/13/21 15:48 36.6 C 79 18 118/63 96 12/13/21 07:42 36.5 C 71 14 103/65 95
[2021-12-13] MEDS: DIGOXIN 0.125 MG TAB PO SCH (20:18)
[2021-12-13] MEDS: ZOLPIDEM TARTRATE 10 MG TAB PO SCH (20:18)
[2021-12-13] MEDS: rOPINIRole HCL 0.25 MG TABLET PO SCH (20:18)
[2021-12-13] MEDS: ATORVASTATIN 10 MG TAB PO SCH (20:19)
[2021-12-14] MEDS: LEVOTHYROXINE SODIUM 50 MCG TABLET PO SCH (05:56)
[2021-12-14] MEDS: HEPARIN SOD 5,000 UNIT/0.5 ML VIAL SQ SCH ×3 (06:01→22:32)
[2021-12-14] MEDS: rOPINIRole HCL 1 MG TABLET PO SCH ×3 (09:10→20:22)
[2021-12-14] MEDS: ASPIRIN 81 MG ECTAB PO SCH (09:10)
[2021-12-14] MEDS: TOPIRAMATE 100 MG TAB PO SCH ×2 (09:10→20:22)
[2021-12-14] MEDS: busPIRone 5 MG TAB PO SCH ×2 (09:10→20:22)
[2021-12-14] MEDS: PANTOprazole 40 MG TAB PO SCH (09:10)
[2021-12-14] MEDS: DOCUSATE SODIUM 100 MG CAP PO SCH ×2 (09:10→20:22)
[2021-12-14] MEDS: DULoxetine HCL 60 MG CAP PO SCH ×2 (09:10→20:23)
[2021-12-14] MEDS: METOPROLOL SUCC 50MG EXT REL TAB PO SCH ×2 (09:14→20:22)
[2021-12-14] MEDS: LIDOCAINE 5% 1 PATCH TD SCH (09:17)
[2021-12-14] MEDS: oxyCODONE HCL IR 5 MG TAB (IMMEDIATE RELEASE) PO PRN ×2 (10:20→19:28)
--- NOTE | 2021-12-14 12:22 | Hospitalist Progress Note ---
Date of Service December 14, 2021 Assessment & Plan (1) Atrial fibrillation with RVR: Plan: Afib RVR H/O Longstanding persistent atrial fibrillation: Appreciate Cardiology Input Amiodarone and Cardizem discontinued ECHO showed no LV wall motion abnormality with EF 55-60% IV heparin drip was discontinued due to drop on hemoglobin No anticoagulation (risks greater than the benefit) Patient refused Anticoagulant Continue metoprolol 100mg BID and digoxin 125mcg Needs follow up with Cardiology upon discharge Currently rate controlled Plan to discharge home with home health UTI Urine Cx: Klebsiella pneumonia ESBL completed the course Ertapenem Resolved Chronic Anemia Hb Stable Last colonoscopy was on 08/17- normal. GI recommended 10 yrs follow Patient reports history of thalassemia Further management as outpatient Hyponatremia Possible related to diuretic, psych meds Consider lasix 40mg 3x weekly once discharge Sodium 134 Monitor Depression Anxiety Bipolar disorder Denies any suicidal ideation Appreciate Psych Input Buspar increased to 20mg BID Also on duloxetine Ativan daily as needed Hypothyroidism TSH 22 Levothyroxine Increased to 50mcg Needs repeat TSH in 4 to 6 weeks B/L LE edema Doppler of LE extremity showed no DVT Improved Lasix PRN As per Prior hospitalist with few changes: Right hip pain H/O Reported B/L hip replacement in [place] many months ago as per patient H/O Fall in September CT Right Hip: Right hip total joint arthroplasty with evidence of hardware loosening involving the acetabular cup and acetabular fixation screws. 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 Ortho consulted recommended if a revision arthroplasty needs to be performed it would need to be done at a tertiary care facility due to the patient's underlying health issues. Contacted [facility] (Dr. Hill) regarding transfer for the procedure. This was deemed not urgent and to be done as outpatient Dr. Hill advised it takes preparation to do a revision and pt can call the joint institute for the appointment at [phone] Carroll Will need outpatient follow up with Mel to schedule for the Hip Revision Interventional radiology here attempted a hip aspiration, but not enough fluid was able to collect Hip aspiration fluid cx and gram stain negative Contacted [facility] Transfer service discussed case with Ortho Dr. Selam Doss said that since there is no acute fracture or infection he will make the ortho joint team contact me to see when they can schedule her to be seen outpatient Dr. Alfred reiterated this procedure should be performed as outpatient. Currently there are no SNFs accepting of her with loose hardware. Continue PT/OT:SNF recommended. On Oxycodone and flexeril for pain control Repeat CT on 12/08/21:No acute osseous pathology. No significant interval change from the previous study with findings again characteristic of loosening of the acetabular component of the patient's total hip replacement. Plan to discharge home with Home Health Scheduled to be followed with [facility] Orthopedics as outpatient H/O PE Pt was on Coumadin many years ago Not on any anticoagulant currently Vergara's esophagus Continue PPI Morbid obesity BMI 51.8 Counseling on weight loss Sleep apnea: Not on any CPAP DVT Px: Heparin SQ Code Status Full Code Disposition Home with Home Health Admission and Anticipated Discharge Date Admission Date: November 13, 2021 Subjective Patient is seen and examined at bedside Doing well No new complaints Plan to be discharged home today Denies any chest pain, dyspnea, dizziness Review of Systems Review of Systems: All systems reviewed & are unremarkable except as noted in Subjective Physical Exam Physical Exam: Physical Exam: Vitals signs as noted above General Appearance:Morbidly Obese, no apparent distress Head: normocephalic, Atraumatic Eyes: normal inspection, EOMI Neck: supple, Trachea midline Respiratory/Chest: Normal breath sounds, CTA, No accessory muscle use Cardiovascular: S1, S2, No murmur Abdomen/GI:Soft, Non tender, Bowel sounds present Extremities/Musculoskeletal:normal inspection, no edema Neurologic/Psych:AAOX3, grossly no focal neurological deficits Skin: normal color, warm Results & Data Results & Data ([facility]) Vital Signs (Past 12 Hours) Vital Signs Temp Pulse Resp BP Pulse Ox 12/14/21 09:16 36.6 C 85 16 124/74 97
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
[2021-12-14] MEDS: CYCLOBENZAPRINE HCL 10 MG TAB PO PRN (14:26)
[2021-12-14] MEDS: LORazepam 0.5 MG TAB PO PRN (15:25)
[2021-12-14] MEDS: ONDANSETRON 4 MG OD TAB PO PRN (19:25)
[2021-12-14] MEDS: rOPINIRole HCL 0.25 MG TABLET PO SCH (20:22)
[2021-12-14] MEDS: DIGOXIN 0.125 MG TAB PO SCH (20:22)
[2021-12-14] MEDS: ATORVASTATIN 10 MG TAB PO SCH (20:22)
[2021-12-14] MEDS: ZOLPIDEM TARTRATE 10 MG TAB PO SCH (22:32)
[2021-12-15] MEDS: oxyCODONE HCL IR 5 MG TAB (IMMEDIATE RELEASE) PO PRN ×2 (02:24→08:55)
[2021-12-15] MEDS: LEVOTHYROXINE SODIUM 50 MCG TABLET PO SCH (05:40)
[2021-12-15] MEDS: HEPARIN SOD 5,000 UNIT/0.5 ML VIAL SQ SCH (05:40)
[2021-12-15] MEDS: CYCLOBENZAPRINE HCL 10 MG TAB PO PRN (06:33)
[2021-12-15] MEDS: ACETAMINOPHEN 325 MG TAB PO PRN (06:33)
[2021-12-15] MEDS: DOCUSATE SODIUM 100 MG CAP PO SCH (08:06)
[2021-12-15] MEDS: busPIRone 5 MG TAB PO SCH (08:06)
[2021-12-15] MEDS: METOPROLOL SUCC 50MG EXT REL TAB PO SCH (08:06)
[2021-12-15] MEDS: ASPIRIN 81 MG ECTAB PO SCH (08:07)
[2021-12-15] MEDS: LIDOCAINE 5% 1 PATCH TD SCH (08:07)
[2021-12-15] MEDS: PANTOprazole 40 MG TAB PO SCH (08:07)
[2021-12-15] MEDS: DULoxetine HCL 60 MG CAP PO SCH (08:07)
[2021-12-15] MEDS: TOPIRAMATE 100 MG TAB PO SCH (08:08)
[2021-12-15] MEDS: rOPINIRole HCL 1 MG TABLET PO SCH (08:08)
--- NOTE | 2021-12-15 10:56 | Hospitalist Progress Note ---
Date of Service December 15, 2021 Assessment & Plan (1) Atrial fibrillation with RVR: Plan: Afib RVR H/O Longstanding persistent atrial fibrillation: Appreciate Cardiology Input Amiodarone and Cardizem discontinued ECHO showed no LV wall motion abnormality with EF 55-60% IV heparin drip was discontinued due to drop on hemoglobin No anticoagulation (risks greater than the benefit) Patient refused Anticoagulant Continue metoprolol 100mg BID and digoxin 125mcg Needs follow up with Cardiology upon discharge Currently rate controlled Patient stated he got delayed due to lack of transportation Plan to discharge home today. UTI Urine Cx: Klebsiella pneumonia ESBL completed the course Ertapenem Resolved Chronic Anemia Hb Stable Last colonoscopy was on 08/17- normal. GI recommended 10 yrs follow Patient reports history of thalassemia Further management as outpatient Hyponatremia Possible related to diuretic, psych meds Consider lasix 40mg 3x weekly once discharge Sodium 134 Monitor Depression Anxiety Bipolar disorder Denies any suicidal ideation Appreciate Psych Input Buspar increased to 20mg BID Also on duloxetine Ativan daily as needed Hypothyroidism TSH 22 Levothyroxine Increased to 50mcg Needs repeat TSH in 4 to 6 weeks B/L LE edema Doppler of LE extremity showed no DVT Improved Lasix PRN As per Prior hospitalist with few changes: Right hip pain H/O Reported B/L hip replacement in [place] many months ago as per patient H/O Fall in September CT Right Hip: Right hip total joint arthroplasty with evidence of hardware loosening involving the acetabular cup and acetabular fixation screws. 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 Ortho consulted recommended if a revision arthroplasty needs to be performed it would need to be done at a tertiary care facility due to the patient's underlying health issues. Contacted [facility] (Dr. Hill) regarding transfer for the procedure. This was deemed not urgent and to be done as outpatient Dr. Hill advised it takes preparation to do a revision and pt can call the joint institute for the appointment at [phone] Carroll Will need outpatient follow up with Mel to schedule for the Hip Revision Interventional radiology here attempted a hip aspiration, but not enough fluid was able to collect Hip aspiration fluid cx and gram stain negative Contacted [facility] Transfer service discussed case with Ortho Dr. Selam Doss said that since there is no acute fracture or infection he will make the ortho joint team contact me to see when they can schedule her to be seen outpatient Dr. Simon reiterated this procedure should be performed as outpatient. Currently there are no SNFs accepting of her with loose hardware. Continue PT/OT:SNF recommended. On Oxycodone and flexeril for pain control Repeat CT on 12/08/21:No acute osseous pathology. No significant interval change from the previous study with findings again characteristic of loosening of the acetabular component of the patient's total hip replacement. Plan to discharge home with Home Health Scheduled to be followed with [facility] as outpatient H/O PE Pt was on Coumadin many years ago Not on any anticoagulant currently Vergara's esophagus Continue PPI Morbid obesity BMI 51.8 Counseling on weight loss Sleep apnea: Not on any CPAP DVT Px: Heparin SQ Code Status Full Code Disposition Home with Home Health Admission and Anticipated Discharge Date Admission Date: November 13, 2021 Subjective Patient is seen and examined at bedside Denies any chest pain, dyspnea, dizziness Discharge got delayed due to lack of transportation No significant leg pain No other complaints Review of Systems Review of Systems: All systems reviewed & are unremarkable except as noted in Subjective Physical Exam Physical Exam: Physical Exam: Vitals signs as noted above General Appearance:Morbidly Obese, no apparent distress Head: normocephalic, Atraumatic Eyes: normal inspection, EOMI Neck: supple, Trachea midline Respiratory/Chest: Normal breath sounds, CTA, No accessory muscle use Cardiovascular: S1, S2, No murmur Abdomen/GI:Soft, Non tender, Bowel sounds present Extremities/Musculoskeletal:normal inspection, no edema Neurologic/Psych:AAOX3, grossly no focal neurological deficits Skin: normal color, warm Results & Data Results & Data ([facility]) Vital Signs (Past 12 Hours) Vital Signs Temp Pulse Resp BP Pulse Ox 12/15/21 07:39 36.6 C 79 18 117/54 L 97
== END 2021-12-15 13:47 | disposition home health service (06) | DRG 309 ==
LOC: ED 22:07 → SUATTDRO 11-13 03:38 → 2S 11-13 03:38 → 3W 11-17 22:10

== ENCOUNTER 2022-01-07 13:36 | Inpatient (IN) ==
[2022-01-07] MEDS ORDERED: LIDOCAINE 5% 1 PATCH TD STA (15:00)
[2022-01-07] MEDS ORDERED: dexAMETHasone**PF** 10 MG/ML VIAL IM ONE (15:00)
[2022-01-07] MEDS ORDERED: oxyCODONE HCL IR 5 MG TAB (IMMEDIATE RELEASE) PO STA ×2 (15:03→19:35)
[2022-01-07] MEDS ORDERED: SODIUM CHLORIDE 0.9% 500 ML IV ONE (15:51)
[2022-01-07] MEDS ORDERED: METOPROLOL TARTRATE 1 MG/ML VIAL IV STA ×3 (15:52→18:03)
--- NOTE | 2022-01-07 16:17 | XRay Report ---
XR chest 1V portable CLINICAL HISTORY: Chest Pain TECHNIQUE: Single frontal radiograph of the chest was obtained. Comparison: Comparison is made to chest radiograph 11/12/2021 FINDINGS: No lines and tubes are seen. Cardiomegaly is noted. The lungs are clear. No evidence of pleural effus ion or pneumothorax. IMPRESSION: No acute chest disease. ACT 112: Negative or not required by law. Electronically signed by: Taiwo Francois M.D. 01/07/2022 4:15 PM
[2022-01-07 16:38] LABS: Basophils # (auto) 0.03 K/uL (0-0.2); Basophils % (auto) 0.2 %; Eosinophils # (auto) 0.08 K/uL (0-0.50); Eosinophils % (auto) 0.6 %; Hematocrit (blood only) 25.7 % (34.1-44.9); Immature Granulocytes # (auto) 0.05 K/uL (0.00-0.02); Immature Granulocytes % (auto) 0.4 %; Lymphocytes # (auto) 1.54 K/uL (1.2-3.4); Lymphocytes % (auto) 11.7 %; Mean Corpuscular Hemoglobin 16.7 pg (25.0-34.0); Mean Corpuscular Hgb Conc 31.1 g/dL (32.0-36.0); Mean Corpuscular Volume 53.8 fL (80.0-100.0); Monocytes % (auto) 6.1 %; Neutrophils # (auto) 10.61 K/uL (1.4-6.5); RDW Coefficient of Variation 17.1 % (11.5-14.5); RDW Standard Deviation 30.8 fL (36.4-46.3); Red Blood Count 4.78 M/uL (3.93-5.22); White Blood Count 13.11 K/ul (4.8-10.8)
[2022-01-07 16:53] LABS: Mean Platelet Volume 9.1 fL (9.4-12.3); Platelet Count 666 K/uL (130-400)
[2022-01-07 16:59] LABS: Albumin Globulin Ratio 0.6 (0.9-2); Albumin Level 3.3 gm/dl (3.4-5.0); BUN Creatinine Ratio 23.9 (10-20); Bilirubin,Total 0.6 mg/dl (0.2-1.0); Calcium 8.8 mg/dl (8.5-10.1); Creatinine Clr Calc Pharmacy 109.2 ml/min; Est GFR (African American) 108.1 ml/min; Est GFR (Non-African American) 93.2 ml/min; Globulin 5.1 gm/dl (2.5-4.0); Phosphorus 3.4 mg/dl (2.5-4.9); Potassium 3.7 mmol/L (3.5-5.1); Total Protein 8.4 gm/dl (6.0-8.3)
[2022-01-07 17:03] LABS: Troponin I High Sensitivity 3.7 pg/ml (0-14)
[2022-01-07 17:06] LABS: Microcytosis Present; Poikilocytosis Present; Polychromasia 1+; Rouleaux 1+; Target Cells 1+
[2022-01-07 17:11] LABS: Thyroid Stimulating Hormone 5.874 uIu/ml (0.300-4.500)
[2022-01-07 17:47] LABS: T4 Free Thyroxine 1.05 ng/dl (0.61-1.60)
[2022-01-07] MEDS ORDERED: METOPROLOL SUCC 50MG EXT REL TAB PO STA (18:42)
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
[2022-01-07] MEDS ORDERED: SODIUM CHLORIDE 0.9% 1000ML 1,000 ML IV ONE (20:34)
[2022-01-07] MEDS ORDERED: ACETAMINOPHEN 500 MG TAB PO PRN (21:01)
[2022-01-07] MEDS ORDERED: GLUCOSE 40% GEL 15 GM TUBE PO PRN (22:36)
[2022-01-07] MEDS ORDERED: GLUCAGON FOR INJ 1 MG VIAL SQ PRN (22:36)
[2022-01-07] MEDS ORDERED: CARBOHYDRATES FOR HYPOGLYCEMIA PO PRN (22:36)
[2022-01-07] MEDS ORDERED: DEXTROSE 50% 50 ML SYRINGE IV PRN (22:36)
[2022-01-07] MEDS ORDERED: GLUCOSE 10 TAB/TUBE PO PRN (22:36)
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
[2022-01-07] MEDS: LACTATED RINGER'S 1,000 ML IV SCH (22:40)
[2022-01-07] MEDS: INSULIN ASPART PER UNIT SC SCH (23:17)
[2022-01-07] MEDS: LORazepam 0.5 MG TAB PO PRN (23:23)
[2022-01-07] MEDS: DIGOXIN 0.125 MG TAB PO SCH (23:23)
[2022-01-07] MEDS: ATORVASTATIN 10 MG TAB PO SCH (23:24)
[2022-01-07] MEDS: busPIRone 5 MG TAB PO SCH (23:24)
[2022-01-07] MEDS: DULoxetine HCL 60 MG CAP PO SCH (23:25)
[2022-01-07] MEDS: METOPROLOL SUCC 50MG EXT REL TAB PO SCH (23:26)
[2022-01-07] MEDS: TOPIRAMATE 100 MG TAB PO SCH (23:27)
[2022-01-07] MEDS: rOPINIRole HCL 0.25 MG TABLET PO SCH (23:27)
[2022-01-07] MEDS: rOPINIRole HCL 1 MG TABLET PO SCH (23:27)
[2022-01-07] MEDS: ENOXAPARIN INJ 40 MG/0.4 ML SYR SQ SCH (23:28)
[2022-01-07] MEDS ORDERED: ZOLPIDEM TARTRATE 5 MG TAB PO PRN (23:38)
[2022-01-07] MEDS: oxyCODONE/ACETAMINOPHEN 5mg/325mg TAB PO PRN (23:41)
[2022-01-07] MEDS: POLYETHYLENE (MIRALAX) 17 GM PACK PO SCH (23:41)
[2022-01-07] MEDS: DAPTOmycin 500 MG in SYRINGE 0 ML IV SCH (23:42)
[2022-01-08] MEDS: ZOLPIDEM TARTRATE 5 MG TAB PO PRN ×2 (00:15→23:51)
[2022-01-08] MEDS: HYDROmorphone INJ 0.5 MG/0.5 ML SYR IV PRN ×2 (01:17→22:13)
[2022-01-08] MEDS: LEVOTHYROXINE SODIUM 50 MCG TABLET PO SCH (05:30)
[2022-01-08] MEDS: DICLOFENAC SOD 1% GEL 100 GM TUBE EXT PRN ×2 (05:31→20:29)
[2022-01-08] MEDS: oxyCODONE/ACETAMINOPHEN 5mg/325mg TAB PO PRN ×3 (06:33→20:28)
--- NOTE | 2022-01-08 07:41 | CT Scan Report ---
RIGHT HIP CT CT DOSE: 1472.71 mGy.cm HISTORY: right hip pain, ?joint infection TECHNIQUE: Multiaxial CT images of the right hip were performed and reformatted in the sagittal and c oronal plane without the use of contrast. A dose lowering technique was utilized adhering to the shahbaz Call[place]. COMPARISON: Right hip CT 12/08/2021. FINDINGS: There is again noted a right total arthroplasty. This results in suboptimal evaluation of t he adjacent bony structures. However, there is no definite acute fracture or dislocation. Right iliac chain lymphadenopathy remains unchanged. No fluid collection or hematoma identified within the right hip. Chronic fractures are noted involving the posterior, medial and posterolateral acetabulum. Acet abular protrusio with lucency surrounding the acetabular cup and acetabular fixation screws. There is osteolysis surrounding the posterior superior acetabular screw. IMPRESSION: 1. Right hip total joint arthroplasty with evidence of hardware loosening involving the acetabular cu p and acetabular fixation screws. 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 2. No acute fracture identified. ACT 112: Negative or not required by law. Electronically signed by: Bennie Smith M.D. 01/08/2022 7:39 AM
[2022-01-08] MEDS: DULoxetine HCL 60 MG CAP PO SCH ×2 (08:03→20:30)
[2022-01-08] MEDS: rOPINIRole HCL 1 MG TABLET PO SCH ×3 (08:03→20:31)
[2022-01-08] MEDS: ASPIRIN 81 MG ECTAB PO SCH (08:04)
[2022-01-08] MEDS: TOPIRAMATE 100 MG TAB PO SCH ×2 (08:04→20:30)
[2022-01-08] MEDS: POLYETHYLENE (MIRALAX) 17 GM PACK PO SCH ×2 (08:04→20:30)
[2022-01-08] MEDS: busPIRone 5 MG TAB PO SCH ×2 (08:05→20:31)
[2022-01-08] MEDS: PANTOprazole 40 MG TAB PO SCH (08:05)
[2022-01-08] MEDS: METOPROLOL SUCC 50MG EXT REL TAB PO SCH ×2 (08:20→20:31)
[2022-01-08 08:21] LABS: Basophils # (auto) 0.01 K/uL (0-0.2); Basophils % (auto) 0.1 %; Hematocrit (blood only) 24.6 % (34.1-44.9); Hemoglobin 7.5 g/dl (12.0-16.0); Immature Granulocytes # (auto) 0.07 K/uL (0.00-0.02); Immature Granulocytes % (auto) 0.5 %; Lymphocytes # (auto) 1.05 K/uL (1.2-3.4); Lymphocytes % (auto) 7.5 %; Mean Corpuscular Hemoglobin 16.7 pg (25.0-34.0); Mean Corpuscular Hgb Conc 30.5 g/dL (32.0-36.0); Mean Corpuscular Volume 54.7 fL (80.0-100.0); Monocytes # (auto) 0.28 K/uL (0.24-0.82); Neutrophils % (auto) 89.9 %; RDW Coefficient of Variation 17.2 % (11.5-14.5); RDW Standard Deviation 32.2 fL (36.4-46.3); White Blood Count 14.01 K/ul (4.8-10.8)
[2022-01-08 08:47] LABS: BUN Creatinine Ratio 24.3 (10-20); Calcium 8.9 mg/dl (8.5-10.1); Creatinine Clr Calc Pharmacy 110.7 ml/min; Est GFR (African American) 109.9 ml/min; Est GFR (Non-African American) 94.8 ml/min; Potassium 4.3 mmol/L (3.5-5.1)
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
[2022-01-08 08:57] LABS: Microcytosis Present; Platelet Count 659 K/uL (130-400); Polychromasia 1+; Target Cells 1+
[2022-01-08] MEDS: INSULIN ASPART PER UNIT SC SCH ×4 (08:57→22:05)
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
[2022-01-08] MEDS: ENOXAPARIN INJ 40 MG/0.4 ML SYR SQ SCH ×2 (11:02→23:51)
[2022-01-08] MEDS: LACTATED RINGER'S 1,000 ML IV SCH (11:07)
--- NOTE | 2022-01-08 12:51 | Electrocardiogram Report ---
Test Reason : Blood Pressure : / mmHG Vent. Rate : 126 BPM Atrial Rate : 133 BPM P-R Int : 000 ms QRS Dur : 084 ms QT Int : 274 ms P-R-T Axes : 000 050 014 degrees QTc Int : 396 ms Atrial fibrillation with rapid ventricular response Low voltage QRS Nonspecific T wave abnormality Abnormal ECG When compared with ECG of 15-NOV-2021 06:04, No significant change was found Confirmed by Mingo Tucker ([id number]) on 01/08/2022 12:50:51 PM Referred By: REFERRED SELF Confirmed By:Ruben Tucker
--- NOTE | 2022-01-08 14:11 | Hospitalist Progress Note ---
Date of Service January 08, 2022 Assessment & Plan (1) Atrial fibrillation, chronic: Plan: Acute on Chronic Right Hip Pain; Leukocytosis; Hypothermia H/o recurrent right hip infections, was scheduled for right hip arthroplasty removal at [facility] on 01/22. Patient has increasing right hip pain, and although denied fever/chills, presented to ED with hypothermia, a-fib RVR, and leukocytosis with neutrophilic predominance and left shift. Pain is likely due to loose hardware 2/2 recurrent infections, but cannot r/o current septic hip at this time. - CRP 16.82, ESR >130 - Blood cx taken - NGTD - CT right hip w/o contrast without fluid collection. Stable. - Started daptomycin for empiric coverage of possible joint infection/osteomyelitis - Pain control PRN - Consulted orthopedic surgery - appreciate recs, awaiting attending eval, but presently no indication for acute surgery. - Trend CBC - Other infectious sources negative so far. No UA done, but no lower urinary symptoms. CXR on 01/07 without acute disease. No focal skin findings on my exam to indicate cellulitis. Monitor closely. Hyponatremia Na 127, baseline low 130s. Serum osmolality 270. Urine osms 115, appropriately dilute. Suspect hypotonic hypovolemic hyponatremia due to dehydration in context of chronically decreased PO intake due to pain and possible infection. - IVFs as stated above - Trend Atrial Fibrillation with Rapid Ventricular Response Chronic persistent a-fib, with initial HRs up to 140s in ED. Suspect RVR is due to uncontrolled pain with possible contribution of infection and associated dehydration. - continue home Toprol XL 100mg PO BID - continue home digoxin 0.125mg PO QPM - Consulted Cardiology -> Feel likely non-compliance is an issue as HR now in appropriate range with restart her home meds. Chronic Microcytic Anemia; Thalassemia Hgb 8.0 (microcytic/hypochromic, ~at baseline). No signs of active bleeding. - ordered iron profile in AM, but this is likely all due to thalassemia - trend Hgb in AM - transfuse for Hgb <7 Ambulatory Dysfunction Largely wheelchair-bound, due to chronic hip problems. Homeless, living at a friend's house, and unable to care for herself properly. - PT/OT consults - patient will likely need placement at rehab vs SNF Chronic HFpEF: EF 55-60% in 10/2021. Appears dry on exam. Hold home PRN Lasix for now. Continue home baby aspirin and statin. Cautious light IVFs - follow volume status closely. T2DM: A1c 6.5 in 11/2021. No previous A1c in our chart. Not on outpatient treatments. SSI while hospitalized. F/u with PCP for consideration of Metformin as outpatient JACEY: continue home Buspar, Cymbalta, and PRN Ativan GERD: continue home Protonix RLS: continue home Ropinirole Hypothyroidism: continue home Synthroid Chronic migraines: continue home Topiramate FEN/GI: heart-healthy/DM2 diet; LR @80cc/hr DVT Prophylaxis: Lovenox Code Status: full code Disposition: med/tele Admission and Anticipated Discharge Date Admission Date: January 07, 2022 Subjective Stable today. Some right hip pain, but otherwise, no major issues. Reports no fevers/chills, chest pain, shortness of breath, abdominal pain, nausea, or vomiting. Physical Exam Constitutional: WD/WN, vitals as above Eyes: EOM intact bilaterally; no conjunctival abnormality ENMT: external ear and nose normal, oropharynx normal Neck: trachea midline, no thyromegaly normal visual inspection Respiratory: normal respiratory effort, lungs clear to auscultation no respiratory distress Cardiovascular: RRR, no murmur, no edema Gastrointestinal (Abdomen): Inspection/Auscultation: abdomen normal to inspection; abdomen not distended Musculoskeletal: Limited ROM of both hips, but no erythema or redness or tenderness overlying either hip Skin: no rashes, warm and dry Neurologic: moves all extremities and awake Psychiatric: Orientation: alert, oriented to person and cooperative Results & Data Results & Data ([facility]) Vital Signs (Past 12 Hours) Vital Signs Temp Pulse Pulse Pulse Resp BP Pulse Ox 01/08/22 11:00 36.5 C 92 H 16 100/60 94 01/08/22 08:09 36.4 C L 110 H 17 90/70 L 94 01/08/22 06:04 85 01/08/22 02:54 36.4 C L 86 20 92/58 L 91 PG Care Time/CCT Total # of Minutes Spent Total Time Spent with Patient: Total time spent is greater than 50% in coordination of care (as documented) at patient's floor/unit and/or counseling patient: Coding Level of Care Code 36349 Subseq Hosp Care Lvl 2 Diagnoses Atrial fibrillation, chronic I48.20
[2022-01-08 14:44] LABS: A calco-baum cmplx NotReported Not Detected (NotDetected); Bact fragilis Not Reported Not Detected (NotDetected); C auris Not Reported Not Detected (NotDetected); Calbicans Not Reported Not Detected (NotDetected); Candida glabrata Not Reported Not Detected (NotDetected); Candida krusei Not Reported Not Detected (NotDetected); Cneoformans/gatti Not Reported Not Detected (NotDetected); Cparapsilosis Not Reported Not Detected (NotDetected); Ctropicalis Not Reported Not Detected (NotDetected); E cloacae compx Not Reported Not Detected (NotDetected); Efaecalis Not Reported Not Detected (NotDetected); Efaecium Not Reported Not Detected (NotDetected); Enterobacterales Not Reported Not Detected (NotDetected); Escherichia coli Not Reported Not Detected (NotDetected); H influenzae Not Reported Not Detected (NotDetected); K aerogenes Not Reported Not Detected (NotDetected); Koxytoca Not Reported Not Detected (NotDetected); Kpneumoniae grp Not Reported Not Detected (NotDetected); Lmonocyt Not Reported Not Detected (NotDetected); N meningitidis Not Reported Not Detected (NotDetected); P aeruginosa Not Reported Not Detected (NotDetected); Proteus spp Not Reported Not Detected (NotDetected); Salmonella spp Not Reported Not Detected (NotDetected); Smarcescens Not Reported Not Detected (NotDetected); Staph lugdunensis Not Reported Not Detected (NotDetected); Staph spp. Not Reported DETECTED (NotDetected); Staphaureus Not Reported Not Detected (NotDetected); Staphylococcus epidermidis DETECTED (NotDetected); Staphylococcus spp. DETECTED (NotDetected); Stenmaltophilia Not Reported Not Detected (NotDetected); Strep agal(GrpB) Not Reported Not Detected (NotDetected); Strep pneum Not Reported Not Detected (NotDetected); Strep pyog (GrpA) Not Reported Not Detected (NotDetected); Strep spp Not Reported Not Detected (NotDetected); mecAC Resistant Gene DETECTED (NotDetected)
[2022-01-08 14:50] LABS: Staphepi Not Reported DETECTED (NotDetected)
[2022-01-08] MEDS ORDERED: Nursing to Pharmacy Communication SCH ×2 (16:30→18:00)
[2022-01-08] MEDS ORDERED: INSULIN ASPART PER UNIT SC SCH (18:00)
[2022-01-08 18:39] LABS: BUN Creatinine Ratio 29.4 (10-20); Est GFR (Non-African American) 95.7 ml/min
--- NOTE | 2022-01-08 20:14 | Billing Data ---
Date of Service January 08, 2022 Coding Level of Care Code 13013 Initial Inpt Care Lvl 3
[2022-01-08] MEDS: rOPINIRole HCL 0.25 MG TABLET PO SCH (20:30)
[2022-01-08] MEDS: DIGOXIN 0.125 MG TAB PO SCH (20:30)
[2022-01-08] MEDS: ATORVASTATIN 10 MG TAB PO SCH (20:31)
[2022-01-08] MEDS: DAPTOmycin 500 MG in SYRINGE 0 ML IV SCH (23:51)
[2022-01-08] MEDS: LORazepam 0.5 MG TAB PO PRN (23:51)
[2022-01-09 02:44] LABS: Appearance Urine Cloudy (Clear); Bacteria Urine Automated 4+ (Negative); Bilirubin Urine Negative (Negative); Blood Urine Negative (Negative); Color Urine Yellow; Epithelial Cell Urine Auto >30 /lpf (0-5); Glucose Urine UA Negative (Negative); Ketones Urine Negative (Negative); Leukocyte Esterase Urine 3+ (Negative); Nitrite Urine Negative (Negative); Protein Urine Negative (Negative); RBC Urine Automated 0-4 /hpf (0-4); Specific Gravity Urine 1.008 (1.000-1.030); Urobilinogen Urine Negative (Negative); pH Urine 6.5 (4.5-7.5)
[2022-01-09 03:08] LABS: Cast Urine Automated 0 /lpf (0-5)
[2022-01-09 06:06] LABS: Hematocrit (blood only) 23.5 % (34.1-44.9); Hemoglobin 7.2 g/dl (12.0-16.0); Mean Corpuscular Hemoglobin 16.7 pg (25.0-34.0); Mean Corpuscular Hgb Conc 30.6 g/dL (32.0-36.0); Mean Corpuscular Volume 54.4 fL (80.0-100.0); Mean Platelet Volume 9.4 fL (9.4-12.3); Nucleated RBC # (auto) 0.05 K/uL (0-0); Nucleated RBC % (auto) 0.4 %; Platelet Count 675 K/uL (130-400); RDW Coefficient of Variation 17.2 % (11.5-14.5); RDW Standard Deviation 31.9 fL (36.4-46.3); Red Blood Count 4.32 M/uL (3.93-5.22)
[2022-01-09] MEDS: LEVOTHYROXINE SODIUM 50 MCG TABLET PO SCH (06:14)
[2022-01-09] MEDS: oxyCODONE/ACETAMINOPHEN 5mg/325mg TAB PO PRN (06:17)
[2022-01-09 06:29] LABS: Albumin Globulin Ratio 0.7 (0.9-2); Albumin Level 3.1 gm/dl (3.4-5.0); BUN Creatinine Ratio 28.4 (10-20); Bilirubin,Total 0.3 mg/dl (0.2-1.0); Calcium 8.4 mg/dl (8.5-10.1); Creatinine Clr Calc Pharmacy 104.7 ml/min; Est GFR (African American) 102.8 ml/min; Est GFR (Non-African American) 88.7 ml/min; Globulin 4.5 gm/dl (2.5-4.0); Total Protein 7.6 gm/dl (6.0-8.3)
[2022-01-09] MEDS: POLYETHYLENE (MIRALAX) 17 GM PACK PO SCH ×2 (08:19→21:50)
[2022-01-09] MEDS: ASPIRIN 81 MG ECTAB PO SCH (08:19)
[2022-01-09] MEDS: TOPIRAMATE 100 MG TAB PO SCH ×2 (08:20→21:51)
[2022-01-09] MEDS: PANTOprazole 40 MG TAB PO SCH (08:20)
[2022-01-09] MEDS: busPIRone 5 MG TAB PO SCH ×2 (08:20→21:51)
[2022-01-09] MEDS: rOPINIRole HCL 1 MG TABLET PO SCH ×3 (08:20→21:51)
[2022-01-09] MEDS: METOPROLOL SUCC 50MG EXT REL TAB PO SCH (08:22)
[2022-01-09] MEDS: INSULIN ASPART PER UNIT SC SCH ×4 (08:32→21:36)
[2022-01-09] MEDS ORDERED: IRON SUCROSE 300 MG in SODIUM CHLORIDE 0.9% 250 ML IV ONE (09:00)
--- NOTE | 2022-01-09 09:52 | Orthopedic Progress Note ---
Date of Service January 09, 2022 Assessment & Plan (1) Chronic pain of right hip: Plan: Patient is scheduled with [facility] [place] 01/22 for hardware removal and scheduled for a pre op appt tomorrow 01/09 Continue with pain control regiment per primary Ice to right hip Will most likely need transfer to tertiary care facility in [place]. Medical stabilization per primary care service Admission and Anticipated Discharge Date Admission Date: January 07, 2022 Subjective Is 61-year-old female was seen today during rounds. She was recently admitted a second time for severe right hip pain due to loosened orthopedic hardware from a previous total hip arthroplasty. She also has other issues involving her thalassemia, urinary tract infection and abnormal metabolic panels. She states she was scheduled to have her preop appointment for the revision hip arthroplasty in [place] today. Her's surgery is now tentatively scheduled for the of this month. Patient complains of excruciating pain in her hip and having difficulty finding aComfortablel position. Currently she denies chest pain, shortness of breath, fever, chills, sweats, lethargy. She does have a burning sensation in her right lower extremity and has intermittent bouts of nausea. Review of Systems Review of Systems: Per HPI Physical Exam Physical Exam: Right hip: Patient has tenderness to palpation in the groin, lateral and posterior aspect of her hip. She is unable to perform a straight leg raise test. She does not tolerate logroll testing. I did not attempt flexion or passive internal or external rotation due to her pain. Quad strength is 2/5. She is able to actively dorsi and plantarflex her foot. She is neurovascularly intact. Results & Data ([facility]) Vital Signs (Past 12 Hours) Vital Signs Temp Pulse Pulse Resp BP Pulse Ox 01/09/22 07:35 36.4 C 111 H 16 88/51 L 92 01/09/22 03:40 36.5 C 85 20 105/71 96 01/08/22 23:06 36.4 C L 102 H 18 97/58 L 95 Diagnostic Findings Laboratory Results WBC 12.40 K/ul (4.8-10.8) H 01/09/22 05:23 RBC 4.32 M/uL (3.93-5.22) 01/09/22 05:23 Hgb 7.2 g/dl (12.0-16.0) L 01/09/22 05:23 Hct 23.5 % (34.1-44.9) L 01/09/22 05:23 MCV 54.4 fL (80.0-100.0) L 01/09/22 05:23 MCH 16.7 pg (25.0-34.0) L 01/09/22 05:23 MCHC 30.6 g/dL (32.0-36.0) L 01/09/22 05: RDW Std Deviation 31.9 fL (36.4-46.3) L 01/09/22 05:23 RDW Coeff of Fredrick 17.2 % (11.5-14.5) H 01/09/22 05:23 Plt Count 675 K/uL (130-400) H 01/09/22 05:23 MPV 9.4 fL (9.4-12.3) 01/09/22 05:23 Immature Gran % (Auto) 0.5 % 01/08/22 08:00 Neut % (Auto) 89.9 % 01/08/22 08:00 Lymph % (Auto) 7.5 % 01/08/22 08:00 Mccracken % (Auto) 2.0 % 01/08/22 08:00 Eos % (Auto) 0.0 % 01/08/22 08:00 Baso % (Auto) 0.1 % 01/08/22 08:00 Neut # (Auto) 12.60 K/uL (1.4-6.5) H 01/08/22 08:00 Lymph # (Auto) 1.05 K/uL (1.2-3.4) L 01/08/22 08:00 M[place]racken # (Auto) 0.28 K/uL (0.24-0.82) 01/08/22 08:00 Eos # (Auto) 0.00 K/uL (0-0.50) 01/08/22 08:00 Baso # (Auto) 0.01 K/uL (0-0.2) 01/08/22 08:00 Immature Gran # (Auto) 0.07 K/uL (0.00-0.02) H 01/08/22 08:00 Absolute Nucleated RBC 0.05 K/uL (0-0) H 01/09/22 05:23 Nucleated RBC % (auto) 0.4 % 01/09/22 05:23 Polychromasia 1+ 01/08/22 08:00 Poikilocytosis Present 01/07/22 16:02 Microcytosis Present 01/08/22 08:00 Target Cells 1+ 01/08/22 08:00 Rouleaux 1+ 01/07/22 16:02 ESR > 130 mm/hr (0-30) H 01/07/22 16:02 Sodium 127 mmol/L (136-145) L 01/09/22 05:23 Potassium 4.0 mmol/L (3.5-5.1) 01/09/22 05:23 Chloride 94 mmol/L (98-107) L 01/09/22 05:23 Carbon Dioxide 25 mmol/L (21-32) 01/09/22 05:23 Anion Gap 8 (3-11) 01/09/22 05:23 BUN 21 mg/dl (6-23) 01/09/22 05:23 Creatinine 0.74 mg/dl (0.6-1.2) 01/09/22 05:23 Est Cr Clr Drug Dosing 104.7 ml/min 01/09/22 05:23 Est GFR ( Amer) 102.8 ml/min 01/09/22 05:23 Est GFR (Non-Af Amer) 88.7 ml/min 01/09/22 05:23 BUN/Creatinine Ratio 28.4 (10-20) H 01/09/22 05:23 Glucose 118 mg/dl (70-99(Fasting)) H 01/09/22 05:23 POC Glucose 112 mg/dl (70-99) H 01/09/22 08:10 Osmolality 270 mOsm/kg (280-300) L 01/07/22 16:02 Calcium 8.4 mg/dl (8.5-10.1) L 01/09/22 05:23 Phosphorus 3.4 mg/dl (2.5-4.9) 01/07/22 16:02 Magnesium 2.0 mg/dl (1.7-2.4) 01/09/22 05:23 Iron 11 mcg/dl (35-150) L 01/08/22 08:00 TIBC 253 mcg/dl (250-450) 01/08/22 08:00 Unsaturated IBC 242 mcg/dl (155-355) 01/08/22 08:00 Transferrin % Sat 4 % (15-50) L 01/08/22 08:00 Total Bilirubin 0.3 mg/dl (0.2-1.0) 01/09/22 05:23 AST 18 U/L (13-39) 01/09/22 05:23 ALT 15 U/L (7-52) 01/09/22 05:23 Alkaline Phosphatase 131 U/L (34-104) H 01/09/22 05:23 Troponin I High Sens 3.7 pg/ml (0-14) 01/07/22 16:02 C-Reactive Protein 16.82 mg/dl (0-0.5) H 01/07/22 16:02 Total Protein 7.6 gm/dl (6.0-8.3) 01/09/22 05:23 Albumin 3.1 gm/dl (3.4-5.0) L 01/09/22 05:23 Globulin 4.5 gm/dl (2.5-4.0) H 01/09/22 05:23 Albumin/Globulin Ratio 0.7 (0.9-2) L 01/09/22 05:23 Procalcitonin 0.06 ng/ml (0-0.5) 01/07/22 16:02 TSH 5.874 uIu/ml (0.300-4.500) H 01/07/22 16:02 Free T4 1.05 ng/dl (0.61-1.60) 01/07/22 16:02 Urine Color Yellow 01/09/22 02:30 Urine Appearance Cloudy (Clear) A 01/09/22 02:30 Urine pH 6.5 (4.5-7.5) 01/09/22 02:30 Ur Specific [place] 1.008 (1.000-1.030) 01/09/22 02:30 Urine Protein Negative (Negative) 01/09/22 02:30 Urine Glucose (UA) Negative (Negative) 01/09/22 02:30 Urine Ketones Negative (Negative) 01/09/22 02:30 Urine Blood Negative (Negative) 01/09/22 02:30 Urine Nitrite Negative (Negative) 01/09/22 02:30 Urine Bilirubin Negative (Negative) 01/09/22 02:30 Urine Urobilinogen Negative (Negative) 01/09/22 02:30 Ur Leukocyte Esterase 3+ (Negative) H 01/09/22 02:30 Urine WBC (Auto) 10-30 /hpf (0-5) H 01/09/22 02:30 Urine RBC (Auto) 0-4 /hpf (0-4) 01/09/22 02:30 U Hyaline Cast (Auto) 0 /lpf (0-5) 01/09/22 02:30 U Epithel Cells (Auto) >30 /lpf (0-5) H 01/09/22 02:30 Urine Bacteria (Auto) 4+ (Negative) H 01/09/22 02:30 Ur Renal Epithelial Cell Not Reportable 01/09/22 02:30 Urine Osmolality 115 mOsm/kg (500-800) L 01/07/22 14:40 Digoxin < 0.3 ng/ml (0.8-2.0) L 01/07/22 22:50 SARS-CoV-2, RNA, NAAT NEGATIVE (NEGATIVE) 01/07/22 21:20 Staphylococcus sp PCR DETECTED (NotDetected) A 01/07/22 21:00 mecA/C-Methicil Resis Gene DETECTED (NotDetected) A 01/07/22 21:00 Staph epidermidis (PCR) DETECTED (NotDetected) A 01/07/22 21:00 Bld Cult ID Panel PCR See PCR Comment (NotDetected) 01/07/22 21:00 Impressions Chest X-Ray 01/07/22 15:51 XR chest 1V portable CLINICAL HISTORY: Chest Pain TECHNIQUE: Single frontal radiograph of the chest was obtained. Comparison: Comparison is made to chest radiograph 11/12/2021 FINDINGS: No lines and tubes are seen. Cardiomegaly is noted. The lungs are clear. No evidence of pleural effusion or pneumothorax. IMPRESSION: No acute chest disease. ACT 112: Negative or not required by law. Electronically signed by: Taiwo Francois M.D. 01/07/2022 4:[address] 01/07/22 20:[address] DOSE: 1472.71 mGy.cm HISTORY: right hip pain, ?joint infection TECHNIQUE: Multiaxial CT images of the right hip were performed and reformatted in the sagittal and coronal plane without the use of contrast. A dose lowering technique was utilized adhering to the principles of ALARA. COMPARISON: Right hip CT 12/08/2021. FINDINGS: There is again noted a right total arthroplasty. This results in suboptimal evaluation of the adjacent bony structures. However, there is no definite acute fracture or dislocation. Right iliac chain lymphadenopathy remains unchanged. No fluid collection or hematoma identified within the right hip. Chronic fractures are noted involving the posterior, medial and posterolateral acetabulum. Acetabular protrusio with lucency surrounding the acetabular cup and acetabular fixation screws. There is osteolysis surrounding the posterior superior acetabular screw. IMPRESSION: 1. Right hip total joint arthroplasty with evidence of hardware loosening involving the acetabular cup and acetabular fixation screws. 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 2. No acute fracture identified. ACT 112: Negative or not required by law. Electronically signed by: Bennie Smith M.D. 01/08/2022 7:39 AM
[2022-01-09] MEDS: DULoxetine HCL 60 MG CAP PO SCH ×2 (11:06→21:50)
[2022-01-09] MEDS: ENOXAPARIN INJ 40 MG/0.4 ML SYR SQ SCH ×2 (12:41→21:49)
[2022-01-09] MEDS: LACTATED RINGER'S 1,000 ML IV SCH ×2 (12:41→21:56)
[2022-01-09] MEDS: ACETAMINOPHEN 500 MG TAB PO SCH ×2 (15:11→21:53)
[2022-01-09] MEDS: oxyCODONE HCL IR 5 MG TAB (IMMEDIATE RELEASE) PO PRN (16:14)
[2022-01-09] MEDS: METOPROLOL SUCC 25MG EXT REL TAB PO SCH (17:30)
--- NOTE | 2022-01-09 18:15 | Hospitalist Progress Note ---
Date of Service January 09, 2022 Assessment & Plan (1) Atrial fibrillation with RVR: Plan: Kym Murrieta is a 61yo female with PMHx significant for persistent a-fib (on BB/digoxin, no AC), chronic HFpEF (EF 55-60% in 10/2021), anemia/thalassemia, h/o PE (no longer on AC), PORTILLO, hypothyroidism and recurrent right hip infection who presented to [facility] ED on 01/07 due to significant right hip pain associated with "migraine". In a-fib with RVR on presentation. Atrial Fibrillation with Rapid Ventricular Response Chronic persistent a-fib, with initial HRs up to 140s in ED. Suspect RVR is due to uncontrolled pain with possible contribution of infection and associated dehydration. - s/p Lopressor 5mg IV x3 and was given home PM dose of Toprol XL 100mg with improvement of HRs to 110s -Lower blood pressures did not allow for metoprolol to be given this morning, but then got more tachycardic-lower metoprolol succinate dose to 75 Mg p.o. twice daily -Increase digoxin to 0.250 Mg p.o. once daily and check digoxin level on 01/11. Digoxin level was low previously - consult Cardiology appreciated -Continue stay on telemetry Acute on Chronic Right Hip Pain; Leukocytosis; Hypothermia H/o recurrent right hip infections, was scheduled for right hip arthroplasty removal at [facility] on 01/22. Patient has increasing right hip pain, and although denied fever/chills, presented to ED with hypothermia, a-fib RVR (as stated above) and leukocytosis with neutrophilic predominance and left shift. Pain is likely due to loose hardware 2/2 recurrent infections, but cannot r/o current septic hip at this time. - CRP 16.82, ESR >130, procalcitonin normal -Blood cultures growing Staph epidermidis resistant to methicillin in 2/4 bottles - CT right hip w/o contrast shows evidence of hardware loosening involving the acetabular cup and acetabular fixation screws as well as mild acetabular protrusio with chronic appearing acetabular fractures -Leukocytosis increased today but did receive Decadron on admission 2 days ago and is likely from that, remains afebrile -Appreciate orthopedic consultation-suspect ongoing infection in the hip and recommend tertiary care center referral for evaluation for removal of prosthesis -she has been accepted at [facility] and awaiting bed -Continue daptomycin for coverage of possible joint infection/osteomyelitis and bacteremia -Not well controlled with pain-change Tylenol to 1000 mg p.o. every 8 hours scheduled, change Percocet to oxycodone 10 mg p.o. every 6 hours as needed moderate to severe pain, and increased frequency of IV Dilaudid 0.5 mg to every 4 hours as needed severe pain - trend CBC, CRP, ESR, CMP in AM Hyponatremia Na 125 at lowest, baseline low 130s. Serum osmolality 270. Initially was suspected to have hypotonic hypovolemic hyponatremia due to dehydration in context of chronically decreased PO intake due to pain and possible infection. However, sodium only mildly increased to 127 today after crystalloid fluids yesterday Could have SIADH secondary to pain -Continue LR at 80 mL/h -Free water fluid restrict to 1500 mL/day -Follow BMP in the morning -Increased pain medication as above Chronic Microcytic Anemia; Thalassemia, with a history of gastric bypass surgery Iron studies show very low transferrin saturation 4% Hgb baseline 8-9 as per patient (microcytic/hypochromic, ~at baseline). He moglobin now down to 7.2 some of which may be hemodilution from IV fluids No signs of active bleeding. -Give Venofer 3 mg IV once daily while here x3 doses - transfuse for Hgb <7 especially in preparation for upcoming possible hip surgery Ambulatory Dysfunction Largely wheelchair-bound, due to chronic hip problems. Homeless, living at a friend's house, and unable to care for herself properly. - PT/OT consults - patient will likely need placement at rehab vs SNF Chronic HFpEF: EF 55-60% in 10/2021. Holding home Lasix and giving fluids as above. Continue home baby Aspirin and statin. T2DM: A1c 6.5 in 11/2021. No previous A1c in our chart. Not on outpatient treatments. SSI while hospitalized. F/u with PCP for consideration of Metformin as outpatient JACEY: continue home Buspar, Cymbalta, and PRN Ativan. Increase Ambien to 10 mg at bedtime GERD: continue home Protonix RLS: continue home Ropinirole Hypothyroidism: TSH mildly elevated here at 5.8. Continue home Synthroid and recommend repeat TSH in 4 to 6 weeks as an outpatient Chronic migraines: continue home Topiramate DVT Prophylaxis: Lovenox Code Status: full code Disposition: Continued stay med/tele, accepted at [facility] and awaiting bed for transfer (2) Right hip pain: (3) Diabetes: (4) Leukocytosis: (5) Anemia: (6) Thalassemia: (7) Chronic heart failure with preserved ejection fraction (HFpEF): (8) Hypothyroidism: (9) Generalized anxiety disorder: (10) GERD (gastroesophageal reflux disease): (11) RLS (restless legs syndrome): (12) Migraines: (13) Iron deficiency anemia: (14) Bacteremia: Admission and Anticipated Discharge Date Admission Date: January 07, 2022 Subjective Patient reports ongoing severe pain in the right hip that sends spasms of muscle cramps down her anterior thigh to the knee at times. Feels the bed is extremely uncomfortable like she is lying on a bar and would like a different mattress. She is also requesting that the Ambien at nighttime be increased to 10 mg as the 5 mg is not helping and her controlled release Ambien is not available here. Otherwise denies chest pains or shortness of breath. She is moving her bowels as of yesterday. Telemetry with atrial fibrillation with rates in the 90s to 140s. Her metoprolol was held this morning for low blood pressures and later in the day her heart rates were in the 140s sustained Review of Systems Review of Systems: All systems reviewed & are unremarkable except as noted in HPI & below Physical Exam Constitutional: WD/WN, vitals as above + morbidly obese Eyes: + anicteric sclerae ENMT: external ear and nose normal, oropharynx normal Neck: trachea midline, no thyromegaly Respiratory: normal respiratory effort, lungs clear to auscultation Cardiovascular: Rate/Rhythm: regular rate and + irregularly irregular Heart Sounds: no murmur Extremities: no edema Chest (Breasts): Chest: normal inspection of chest Gastrointestinal (Abdomen): normal bowel sounds, soft, nontender, no hepatosp lenomegaly Musculoskeletal: Extremities: extremities normal to inspection; no cyanosis and no clubbing Positive tenderness palpation over right groin Skin: no rashes, warm and dry Neurologic: moves all extremities and awake; no focal motor deficits Psychiatric: A+Ox3, euthymic affect Lymphatic: no lymphedema Results & Data Results & Data ([facility]) Vital Signs (Past 12 Hours) Vital Signs Temp Pulse Pulse Resp BP Pulse Ox 01/09/22 17:19 146 H 107/73 01/09/22 14:58 36.6 C 113 H 16 99/67 L 98 01/09/22 07:35 36.4 C 111 H 16 88/51 L 92 01/09/22 07:30 98 H Laboratory Results 01/09/22 01/09/22 01/09/22 Range/Units 16:46 11:57 08:10 WBC (4.8-10.8) K/ul RBC (3.93-5.22) M/uL Hgb (12.0-16.0) g/dl Hct (34.1-44.9) % MCV (80.0-100.0) fL MCH (25.0-34.0) pg MCHC (32.0-36.0) g/dL RDW Std Deviation (36.4-46.3) fL RDW Coeff of Fredrick (11.5-14.5) % Plt Count (130-400) K/uL MPV (9.4-12.3) fL Absolute Nucleated RBC (0-0) K/uL Nucleated RBC % (auto) % Sodium (136-145) mmol/L Potassium (3.5-5.1) mmol/L Chloride (98-107) mmol/L Carbon Dioxide (21-32) mmol/L Anion Gap (3-11) BUN (6-23) mg/dl Creatinine (0.6-1.2) mg/dl Est Cr Clr Drug Dosing ml/min Est GFR ( Amer) ml/min Est GFR (Non-Af Amer) ml/min BUN/Creatinine Ratio (10-20) Glucose (70-99(Fasting)) mg/dl POC Glucose 123 H 88 112 H (70-99) mg/dl Calcium (8.5-10.1) mg/dl Magnesium (1.7-2.4) mg/dl Total Bilirubin (0.2-1.0) mg/dl AST (13-39) U/L ALT (7-52) U/L Alkaline Phosphatase (34-104) U/L Total Protein (6.0-8.3) gm/dl Albumin (3.4-5.0) gm/dl Globulin (2.5-4.0) gm/dl Albumin/Globulin Ratio (0.9-2) Urine Color Urine Appearance (Clear) Urine pH (4.5-7.5) Ur Specific [place] (1.000-1.030) Urine Protein (Negative) Urine Glucose (UA) (Negative) Urine Ketones (Negative) Urine Blood (Negative) Urine Nitrite (Negative) Urine Bilirubin (Negative) Urine Urobilinogen (Negative) Ur Leukocyte Esterase (Negative) Urine WBC (Auto) (0-5) /hpf Urine RBC (Auto) (0-4) /hpf U Hyaline Cast (Auto) (0-5) /lpf U Epithel Cells (Auto) (0-5) /lpf Urine Bacteria (Auto) (Negative) Ur Renal Epithelial Cell 01/09/22 01/09/22 01/09/22 Range/Units 05:23 05:23 02:30 WBC 12.40 H (4.8-10.8) K/ul RBC 4.32 (3.93-5.22) M/uL Hgb 7.2 L (12.0-16.0) g/dl Hct 23.5 L (34.1-44.9) % MCV 54.4 L (80.0-100.0) fL MCH 16.7 L (25.0-34.0) pg MCHC 30.6 L (32.0-36.0) g/dL RDW Std Deviation 31.9 L (36.4-46.3) fL RDW Coeff of Fredrick 17.2 H (11.5-14.5) % Plt Count 675 H (130-400) K/uL MPV 9.4 (9.4-12.3) fL Absolute Nucleated RBC 0.05 H (0-0) K/uL Nucleated RBC % (auto) 0.4 % Sodium 127 L (136-145) mmol/L Potassium 4.0 (3.5-5.1) mmol/L Chloride 94 L (98-107) mmol/L Carbon Dioxide 25 (21-32) mmol/L Anion Gap 8 (3-11) BUN 21 (6-23) mg/dl Creatinine 0.74 (0.6-1.2) mg/dl Est Cr Clr Drug Dosing 104.7 ml/min Est GFR ( Amer) 102.8 ml/min Est GFR (Non-Af Amer) 88.7 ml/min BUN/Creatinine Ratio 28.4 H (10-20) Glucose 118 H (70-99(Fasting)) mg/dl POC Glucose (70-99) mg/dl Calcium 8.4 L (8.5-10.1) mg/dl Magnesium 2.0 (1.7-2.4) mg/dl Total Bilirubin 0.3 (0.2-1.0) mg/dl AST 18 (13-39) U/L ALT 15 (7-52) U/L Alkaline Phosphatase 131 H (34-104) U/L Total Protein 7.6 (6.0-8.3) gm/dl Albumin 3.1 L (3.4-5.0) gm/dl Globulin 4.5 H (2.5-4.0) gm/dl Albumin/Globulin Ratio 0.7 L (0.9-2) Urine Color Yellow Urine Appearance Cloudy A (Clear) Urine pH 6.5 (4.5-7.5) Ur Specific [place] 1.008 (1.000-1.030) Urine Protein Negative (Negative) Urine Glucose (UA) Negative (Negative) Urine Ketones Negative (Negative) Urine Blood Negative (Negative) Urine Nitrite Negative (Negative) Urine Bilirubin Negative (Negative) Urine Urobilinogen Negative (Negative) Ur Leukocyte Esterase 3+ H (Negative) Urine WBC (Auto) 10-30 H (0-5) /hpf Urine RBC (Auto) 0-4 (0-4) /hpf U Hyaline Cast (Auto) 0 (0-5) /lpf U Epithel Cells (Auto) >30 H (0-5) /lpf Urine Bacteria (Auto) 4+ H (Negative) Ur Renal Epithelial Cell Not Reportable 01/08/22 Range/Units 19:59 WBC (4.8-10.8) K/ul RBC (3.93-5.22) M/uL Hgb (12.0-16.0) g/dl Hct (34.1-44.9) % MCV (80.0-100.0) fL MCH (25.0-34.0) pg MCHC (32.0-36.0) g/dL RDW Std Deviation (36.4-46.3) fL RDW Coeff of Fredrick (11.5-14.5) % Plt Count (130-400) K/uL MPV (9.4-12.3) fL Absolute Nucleated RBC (0-0) K/uL Nucleated RBC % (auto) % Sodium (136-145) mmol/L Potassium (3.5-5.1) mmol/L Chloride (98-107) mmol/L Carbon Dioxide (21-32) mmol/L Anion Gap (3-11) BUN (6-23) mg/dl Creatinine (0.6-1.2) mg/dl Est Cr Clr Drug Dosing ml/min Est GFR ( Amer) ml/min Est GFR (Non-Af Amer) ml/min BUN/Creatinine Ratio (10-20) Glucose (70-99(Fasting)) mg/dl POC Glucose 162 H (70-99) mg/dl Calcium (8.5-10.1) mg/dl Magnesium (1.7-2.4) mg/dl Total Bilirubin (0.2-1.0) mg/dl AST (13-39) U/L ALT (7-52) U/L Alkaline Phosphatase (34-104) U/L Total Protein (6.0-8.3) gm/dl Albumin (3.4-5.0) gm/dl Globulin (2.5-4.0) gm/dl Albumin/Globulin Ratio (0.9-2) Urine Color Urine Appearance (Clear) Urine pH (4.5-7.5) Ur Specific [place] (1.000-1.030) Urine Protein (Negative) Urine Glucose (UA) (Negative) Urine Ketones (Negative) Urine Blood (Negative) Urine Nitrite (Negative) Urine Bilirubin (Negative) Urine Urobilinogen (Negative) Ur Leukocyte Esterase (Negative) Urine WBC (Auto) (0-5) /hpf Urine RBC (Auto) (0-4) /hpf U Hyaline Cast (Auto) (0-5) /lpf U Epithel Cells (Auto) (0-5) /lpf Urine Bacteria (Auto) (Negative) Ur Renal Epithelial Cell PG Care Time/CCT Total # of Minutes Spent Total Time Spent with Patient: Total time spent is greater than 50% in coordination of care (as documented) at patient's floor/unit and/or counseling patient: Coding Level of Care Code 92126 Subseq Hosp Care Lvl 3 Diagnoses Atrial fibrillation with RVR I48.91 Right hip pain M25.551 Diabetes E11.9 Leukocytosis D72.829 Anemia D64.9 Thalassemia D56.9 Chronic heart failure with preserved ejection fraction (HFpEF) I50.32 Hypothyroidism E03.9 Generalized anxiety disorder F41.1 GERD (gastroesophageal reflux disease) K21.9 RLS (restless legs syndrome) G25.81 Migraines G43.909 Iron deficiency anemia D50.9 Bacteremia R78.81
[2022-01-09] MEDS: rOPINIRole HCL 0.25 MG TABLET PO SCH (21:50)
[2022-01-09] MEDS: DIGOXIN 0.25 MG TAB PO SCH (21:52)
[2022-01-09] MEDS: ATORVASTATIN 10 MG TAB PO SCH (21:52)
[2022-01-09] MEDS: DAPTOmycin 500 MG in SYRINGE 0 ML IV SCH (21:56)
[2022-01-09] MEDS: ZOLPIDEM TARTRATE 10 MG TAB PO PRN (23:20)
[2022-01-09] MEDS: HYDROmorphone INJ 0.5 MG/0.5 ML SYR IV PRN (23:21)
[2022-01-10 05:52] LABS: Basophils # (auto) 0.03 K/uL (0-0.2); Basophils % (auto) 0.3 %; Eosinophils # (auto) 0.17 K/uL (0-0.50); Eosinophils % (auto) 1.9 %; Hematocrit (blood only) 24.5 % (34.1-44.9); Hemoglobin 7.3 g/dl (12.0-16.0); Immature Granulocytes # (auto) 0.07 K/uL (0.00-0.02); Immature Granulocytes % (auto) 0.8 %; Lymphocytes # (auto) 1.63 K/uL (1.2-3.4); Lymphocytes % (auto) 17.8 %; Mean Corpuscular Hemoglobin 16.5 pg (25.0-34.0); Mean Corpuscular Hgb Conc 29.8 g/dL (32.0-36.0); Mean Corpuscular Volume 55.4 fL (80.0-100.0); Monocytes # (auto) 0.59 K/uL (0.24-0.82); Monocytes % (auto) 6.4 %; Neutrophils # (auto) 6.68 K/uL (1.4-6.5); Neutrophils % (auto) 72.8 %; Nucleated RBC # (auto) 0.08 K/uL (0-0); Nucleated RBC % (auto) 0.9 %; RDW Coefficient of Variation 17.1 % (11.5-14.5); RDW Standard Deviation 32.7 fL (36.4-46.3); Red Blood Count 4.42 M/uL (3.93-5.22); White Blood Count 9.17 K/ul (4.8-10.8)
[2022-01-10] MEDS: ACETAMINOPHEN 500 MG TAB PO SCH ×3 (06:06→22:49)
[2022-01-10] MEDS: LEVOTHYROXINE SODIUM 50 MCG TABLET PO SCH (06:06)
[2022-01-10] MEDS: oxyCODONE HCL IR 5 MG TAB (IMMEDIATE RELEASE) PO PRN ×2 (06:10→13:00)
[2022-01-10 06:24] LABS: BUN Creatinine Ratio 25.4 (10-20); C Reactive Protein 7.48 mg/dl (0-0.5); Calcium 8.5 mg/dl (8.5-10.1); Creatinine Clr Calc Pharmacy 110.4 ml/min; Est GFR (African American) 108.1 ml/min; Est GFR (Non-African American) 93.2 ml/min; Potassium 4.2 mmol/L (3.5-5.1)
[2022-01-10 07:30] LABS: Platelet Count 687 K/uL (130-400)
[2022-01-10] MEDS: POLYETHYLENE (MIRALAX) 17 GM PACK PO SCH ×2 (08:12→20:49)
[2022-01-10] MEDS: PANTOprazole 40 MG TAB PO SCH (08:14)
[2022-01-10] MEDS: ASPIRIN 81 MG ECTAB PO SCH (08:14)
[2022-01-10] MEDS: rOPINIRole HCL 1 MG TABLET PO SCH ×3 (08:14→20:48)
[2022-01-10] MEDS: METOPROLOL SUCC 25MG EXT REL TAB PO SCH ×2 (08:15→20:47)
[2022-01-10] MEDS: TOPIRAMATE 100 MG TAB PO SCH ×2 (08:16→20:48)
[2022-01-10] MEDS: busPIRone 5 MG TAB PO SCH ×2 (08:16→20:45)
[2022-01-10] MEDS: DULoxetine HCL 60 MG CAP PO SCH ×2 (08:16→20:47)
[2022-01-10] MEDS: INSULIN ASPART PER UNIT SC SCH ×4 (08:54→20:48)
[2022-01-10] MEDS: MEROPENEM 500 MG in SYRINGE 0 ML IV SCH ×2 (09:34→17:50)
[2022-01-10] MEDS: IRON SUCROSE 300 MG in SODIUM CHLORIDE 0.9% 250 ML IV SCH (09:39)
[2022-01-10] MEDS: ENOXAPARIN INJ 40 MG/0.4 ML SYR SQ SCH ×2 (11:57→22:48)
[2022-01-10] MEDS: LACTATED RINGER'S 1,000 ML IV SCH (12:00)
--- NOTE | 2022-01-10 19:26 | Hospitalist Progress Note ---
Date of Service January 10, 2022 Assessment & Plan (1) Atrial fibrillation with RVR: Plan: Kym Murrieta is a 61yo female with PMHx significant for persistent a-fib (on BB/digoxin, no AC), chronic HFpEF (EF 55-60% in 10/2021), anemia/thalassemia, h/o PE (no longer on AC), PORTILLO, hypothyroidism and recurrent right hip infection who presented to [facility] ED on 01/07 due to significant right hip pain associated with "migraine". In a-fib with RVR on presentation. Atrial Fibrillation with Rapid Ventricular Response Chronic persistent a-fib, with initial HRs up to 140s in ED. Suspect RVR is due to uncontrolled pain with possible contribution of infection and associated dehydration. - s/p Lopressor 5mg IV x3 and was given home PM dose of Toprol XL 100mg with improvement of HRs to 110s -Lower blood pressures did not allow for metoprolol to be given at times, but then got more tachycardic-lowered metoprolol succinate dose to 75 Mg p.o. twice daily and BPs improved -Increased digoxin to 0.250 Mg p.o. once daily and check digoxin level on 01/11. Digoxin level was low previously -rates now much improved control - consult Cardiology appreciated -Continued stay on telemetry Acute on Chronic Right Hip Pain Sepsis evidence by +BCx, hypothermia, tachycardia, hypotension, and leukocytosis H/o recurrent right hip infections, was scheduled for right hip arthroplasty removal at [facility] on 01/22. Patient has increasing right hip pain, and although denied fever/chills, presented to ED with hypothermia, a-fib RVR (as stated above) and leukocytosis with neutrophilic predominance and left shift. Pain is likely due to loose hardware 2/2 recurrent infections, but cannot r/o current septic hip at this time. - CRP 16.82, ESR >130, procalcitonin normal -Blood cultures growing Staph epidermidis resistant to methicillin in 2/4 bottles Repeat BCxs no growth to date - CT right hip w/o contrast shows evidence of hardware loosening involving the acetabular cup and acetabular fixation screws as well as mild acetabular protrusio with chronic appearing acetabular fractures -Leukocytosis now resolved, remains afebrile -Appreciate orthopedic consultation-suspect ongoing infection in the hip and recommend tertiary care center referral for evaluation for removal of prosthesis-she has been accepted at [facility] and awaiting bed -Continue daptomycin for coverage of possible joint infection/osteomyelitis and bacteremia -still not well controlled with pain-continue Tylenol to 1000 mg p.o. every 8 hours scheduled, oxycodone 10 mg p.o. every 6 hours as needed moderate to severe pain, and IV Dilaudid 0.5 mg to every 4 hours as needed for severe pain - trend CBC, CRP, ESR, CMP UTI-now with GNR in Ur cx. With h/o ESBL Klebsiella start meropenem follow Ur cx Hyponatremia Na 125 at lowest, baseline low 130s. Serum osmolality 270. Initially was suspected to have hypotonic hypovolemic hyponatremia due to dehydration in context of chronically decreased PO intake due to pain and possible infection. However, sodium only mildly increased to 127 after crystalloid fluids initially Fluid restricted and now Na+ up to 133 today Could have SIADH secondary to pain -dc LR -Free water fluid restrict to 1500 mL/day -Follow BMP in the morning -continue pain control Chronic Microcytic Anemia; Thalassemia, with a history of gastric bypass surgery Iron studies show very low transferrin saturation 4% Hgb baseline 8-9 as per patient (microcytic/hypochromic, ~at baseline). Hemoglobin now down to 7.2 some of which may be hemodilution from IV fluids No signs of active bleeding. -Give Venofer 3 mg IV once daily while here x3 doses - transfuse for Hgb <7 especially in preparation for upcoming possible hip surgery Ambulatory Dysfunction Largely wheelchair-bound, due to chronic hip problems. Homeless, living at a friend's house, and unable to care for herself properly. - PT/OT consults - patient will likely need placement at rehab vs SNF Chronic HFpEF: EF 55-60% in 10/2021. Holding home Lasix and giving fluids as above. Continue home baby Aspirin and statin. T2DM: A1c 6.5 in 11/2021. No previous A1c in our chart. Not on outpatient treatments. SSI while hospitalized. F/u with PCP for consideration of Metformin as outpatient JACEY: continue home Buspar, Cymbalta, and PRN Ativan. Increase Ambien to 10 mg at bedtime GERD: continue home Protonix RLS: continue home Ropinirole Hypothyroidism: TSH mildly elevated here at 5.8. Continue home Synthroid and recommend repeat TSH in 4 to 6 weeks as an outpatient Chronic migraines: continue home Topiramate DVT Prophylaxis: Lovenox Code Status: full code Disposition: Continued stay med/tele, accepted at [facility] and [facility] bed for transfer (2) Right hip pain: (3) Diabetes: (4) Leukocytosis: (5) Anemia: (6) Thalassemia: (7) Chronic heart failure with preserved ejection fraction (HFpEF): (8) Hypothyroidism: (9) Generalized anxiety disorder: (10) GERD (gastroesophageal reflux disease): (11) RLS (restless legs syndrome): (12) Migraines: (13) Iron deficiency anemia: (14) Bacteremia: (15) UTI (urinary tract infection): Admission and Anticipated Discharge Date Admission Date: January 07, 2022 Subjective Pt reports she slept better last night but is still having severe pain in right hip with muscle spasms down right anterior thigh. No BM and requests to try to go on a bedside commode as she was unable ot move bowels in bedpan. No CP, SOB Tele with much improved HR with Afib with rates 80-90s Review of Systems Review of Systems: All systems reviewed & are unremarkable except as noted in HPI & below Physical Exam Constitutional: WD/WN, vitals as above + morbidly obese Eyes: + anicteric sclerae Neck: trachea midline, no thyromegaly Respiratory: normal respiratory effort, lungs clear to auscultation Cardiovascular: Rate/Rhythm: regular rate and + irregularly irregular Heart Sounds: no murmur Extremities: no edema Chest (Breasts): Chest: normal inspection of chest Gastrointestinal (Abdomen): normal bowel sounds, soft, nontender, no hepatosplenomegaly Musculoskeletal: Extremities: extremities normal to inspection; no cyanosis and no clubbing Skin: no rashes, warm and dry Neurologic: moves all extremities and awake; no focal motor deficits Psychiatric: A+Ox3, euthymic affect Lymphatic: no lymphedema Results & Data Results & Data ([facility]) Vital Signs (Past 12 Hours) Vital Signs Temp Pulse Pulse Resp BP Pulse Ox O2 Del Method 01/10/22 15:17 123 H 01/10/22 08:28 36.5 C 102 H 18 108/69 95 Room Air Laboratory Results 01/10/22 01/10/22 01/10/22 Range/Units 16:28 11:27 07:27 WBC (4.8-10.8) K/ul RBC (3.93-5.22) M/uL Hgb (12.0-16.0) g/dl Hct (34.1-44.9) % MCV (80.0-100.0) fL MCH (25.0-34.0) pg MCHC (32.0-36.0) g/dL RDW Std Deviation (36.4-46.3) fL RDW Coeff of Fredrick (11.5-14.5) % Plt Count (130-400) K/uL MPV (9.4-12.3) fL Immature Gran % (Auto) % Neut % (Auto) % Lymph % (Auto) % Wayne % (Auto) % Eos % (Auto) % Baso % (Auto) % Neut # (Auto) (1.4-6.5) K/uL Lymph # (Auto) (1.2-3.4) K/uL Wayne # (Auto) (0.24-0.82) K/uL Eos # (Auto) (0-0.50) K/uL Baso # (Auto) (0-0.2) K/uL Immature Gran # (Auto) (0.00-0.02) K/uL Absolute Nucleated RBC (0-0) K/uL Nucleated RBC % (auto) % ESR (0-30) mm/hr Sodium (136-145) mmol/L Potassium (3.5-5.1) mmol/L Chloride (98-107) mmol/L Carbon Dioxide (21-32) mmol/L Anion Gap (3-11) BUN (6-23) mg/dl Creatinine (0.6-1.2) mg/dl Est Cr Clr Drug Dosing ml/min Est GFR ( Amer) ml/min Est GFR (Non-Af Amer) ml/min BUN/Creatinine Ratio (10-20) Glucose (70-99(Fasting)) mg/dl POC Glucose 105 H 82 120 H (70-99) mg/dl Calcium (8.5-10.1) mg/dl C-Reactive Protein (0-0.5) mg/dl 01/10/22 01/10/22 01/10/22 Range/Units 05:29 05:29 05:29 WBC 9.17 (4.8-10.8) K/ul RBC 4.42 (3.93-5.22) M/uL Hgb 7.3 L (12.0-16.0) g/dl Hct 24.5 L (34.1-44.9) % MCV 55.4 L (80.0-100.0) fL MCH 16.5 L (25.0-34.0) pg MCHC 29.8 L (32.0-36.0) g/dL RDW Std Deviation 32.7 L (36.4-46.3) fL RDW Coeff of Fredrick 17.1 H (11.5-14.5) % Plt Count 687 H (130-400) K/uL MPV 9.0 L (9.4-12.3) fL Immature Gran % (Auto) 0.8 % Neut % (Auto) 72.8 % Lymph % (Auto) 17.8 % Wayne % (Auto) 6.4 % Eos % (Auto) 1.9 % Baso % (Auto) 0.3 % Neut # (Auto) 6.68 H (1.4-6.5) K/uL Lymph # (Auto) 1.63 (1.2-3.4) K/uL Wayne # (Auto) 0.59 (0.24-0.82) K/uL Eos # (Auto) 0.17 (0-0.50) K/uL Baso # (Auto) 0.03 (0-0.2) K/uL Immature Gran # (Auto) 0.07 H (0.00-0.02) K/uL Absolute Nucleated RBC 0.08 H (0-0) K/uL Nucleated RBC % (auto) 0.9 % ESR > 130 H (0-30) mm/hr Sodium 133 L (136-145) mmol/L Potassium 4.2 (3.5-5.1) mmol/L Chloride 101 (98-107) mmol/L Carbon Dioxide 26 (21-32) mmol/L Anion Gap 6 (3-11) BUN 18 (6-23) mg/dl Creatinine 0.71 (0.6-1.2) mg/dl Est Cr Clr Drug Dosing 110.4 ml/min Est GFR ( Amer) 108.1 ml/min Est GFR (Non-Af Amer) 93.2 ml/min BUN/Creatinine Ratio 25.4 H (10-20) Glucose 92 (70-99(Fasting)) mg/dl POC Glucose (70-99) mg/dl Calcium 8.5 (8.5-10.1) mg/dl C-Reactive Protein 7.48 H (0-0.5) mg/dl 01/09/22 Range/Units 21:13 WBC (4.8-10.8) K/ul RBC (3.93-5.22) M/uL Hgb (12.0-16.0) g/dl Hct (34.1-44.9) % MCV (80.0-100.0) fL MCH (25.0-34.0) pg MCHC (32.0-36.0) g/dL RDW Std Deviation (36.4-46.3) fL RDW Coeff of Fredrick (11.5-14.5) % Plt Count (130-400) K/uL MPV (9.4-12.3) fL Immature Gran % (Auto) % Neut % (Auto) % Lymph % (Auto) % Wayne % (Auto) % Eos % (Auto) % Baso % (Auto) % Neut # (Auto) (1.4-6.5) K/uL Lymph # (Auto) (1.2-3.4) K/uL Wayne # (Auto) (0.24-0.82) K/uL Eos # (Auto) (0-0.50) K/uL Baso # (Auto) (0-0.2) K/uL Immature Gran # (Auto) (0.00-0.02) K/uL Absolute Nucleated RBC (0-0) K/uL Nucleated RBC % (auto) % ESR (0-30) mm/hr Sodium (136-145) mmol/L Potassium (3.5-5.1) mmol/L Chloride (98-107) mmol/L Carbon Dioxide (21-32) mmol/L Anion Gap (3-11) BUN (6-23) mg/dl Creatinine (0.6-1.2) mg/dl Est Cr Clr Drug Dosing ml/min Est GFR ( Amer) ml/min Est GFR (Non-Af Amer) ml/min BUN/Creatinine Ratio (10-20) Glucose (70-99(Fasting)) mg/dl POC Glucose 92 (70-99) mg/dl Calcium (8.5-10.1) mg/dl C-Reactive Protein (0-0.5) mg/dl PG Care Time/CCT Total # of Minutes Spent Total Time Spent with Patient: Total time spent is greater than 50% in coordination of care (as documented) at patient's floor/unit and/or counseling patient: Coding Level of Care Code 26254 Subseq Hosp Care Lvl 2 Diagnoses Atrial fibrillation with RVR I48.91 Right hip pain M25.551 Diabetes E11.9 Leukocytosis D72.829 Anemia D64.9 Thalassemia D56.9 Chronic heart failure with preserved ejection fraction (HFpEF) I50.32 Hypothyroidism E03.9 Generalized anxiety disorder F41.1 GERD (gastroesophageal reflux disease) K21.9 RLS (restless legs syndrome) G25.81 Migraines G43.909 Iron deficiency anemia D50.9 Bacteremia R78.81 UTI (urinary tract infection) N39.0
[2022-01-10] MEDS: HYDROmorphone INJ 0.5 MG/0.5 ML SYR IV PRN (19:45)
[2022-01-10] MEDS: ZOLPIDEM TARTRATE 10 MG TAB PO PRN (20:43)
[2022-01-10] MEDS: ATORVASTATIN 10 MG TAB PO SCH (20:45)
[2022-01-10] MEDS: DIGOXIN 0.25 MG TAB PO SCH (20:46)
[2022-01-10] MEDS: rOPINIRole HCL 0.25 MG TABLET PO SCH (20:48)
[2022-01-10] MEDS: DAPTOmycin 500 MG in SYRINGE 0 ML IV SCH (22:52)
[2022-01-11] MEDS: MEROPENEM 500 MG in SYRINGE 0 ML IV SCH ×3 (01:15→17:27)
[2022-01-11] MEDS: LACTATED RINGER'S 1,000 ML IV SCH (01:31)
[2022-01-11] MEDS: HYDROmorphone INJ 0.5 MG/0.5 ML SYR IV PRN ×4 (01:58→19:34)
[2022-01-11] MEDS: ACETAMINOPHEN 500 MG TAB PO SCH ×2 (05:46→13:33)
[2022-01-11] MEDS: LEVOTHYROXINE SODIUM 50 MCG TABLET PO SCH (05:48)
[2022-01-11 06:26] LABS: Basophils # (auto) 0.04 K/uL (0-0.2); Basophils % (auto) 0.4 %; Eosinophils # (auto) 0.22 K/uL (0-0.50); Hematocrit (blood only) 23.5 % (34.1-44.9); Immature Granulocytes # (auto) 0.09 K/uL (0.00-0.02); Immature Granulocytes % (auto) 0.8 %; Lymphocytes # (auto) 1.76 K/uL (1.2-3.4); Lymphocytes % (auto) 16.2 %; Mean Corpuscular Hemoglobin 16.3 pg (25.0-34.0); Mean Corpuscular Hgb Conc 29.8 g/dL (32.0-36.0); Mean Corpuscular Volume 54.7 fL (80.0-100.0); Monocytes % (auto) 5.5 %; Neutrophils # (auto) 8.18 K/uL (1.4-6.5); Neutrophils % (auto) 75.1 %; Nucleated RBC % (auto) 1.8 %; RDW Coefficient of Variation 17.2 % (11.5-14.5); RDW Standard Deviation 32.1 fL (36.4-46.3); White Blood Count 10.89 K/ul (4.8-10.8)
[2022-01-11 07:03] LABS: BUN Creatinine Ratio 21.5 (10-20); Calcium 8.3 mg/dl (8.5-10.1); Creatinine Clr Calc Pharmacy 120.1 ml/min; Est GFR (African American) 112.6 ml/min; Est GFR (Non-African American) 97.2 ml/min; Potassium 4.1 mmol/L (3.5-5.1)
[2022-01-11 07:07] LABS: Mean Platelet Volume 8.9 fL (9.4-12.3); Platelet Count 740 K/uL (130-400)
[2022-01-11 07:12] LABS: Polychromasia 1+; Spherocytes 1+; Target Cells 1+
[2022-01-11] MEDS ORDERED: SODIUM CHLORIDE 0.9% 250 ML IV PRN (07:37)
[2022-01-11] MEDS: INSULIN ASPART PER UNIT SC SCH ×3 (09:11→17:23)
[2022-01-11] MEDS: ASPIRIN 81 MG ECTAB PO SCH (09:12)
[2022-01-11] MEDS: DULoxetine HCL 60 MG CAP PO SCH (09:13)
[2022-01-11] MEDS: busPIRone 5 MG TAB PO SCH (09:13)
[2022-01-11] MEDS: METOPROLOL SUCC 25MG EXT REL TAB PO SCH (09:13)
[2022-01-11] MEDS: POLYETHYLENE (MIRALAX) 17 GM PACK PO SCH (09:14)
[2022-01-11] MEDS: rOPINIRole HCL 1 MG TABLET PO SCH ×2 (09:14→13:33)
[2022-01-11] MEDS: PANTOprazole 40 MG TAB PO SCH (09:14)
[2022-01-11] MEDS: TOPIRAMATE 100 MG TAB PO SCH (09:14)
[2022-01-11] MEDS: IRON SUCROSE 300 MG in SODIUM CHLORIDE 0.9% 250 ML IV SCH (09:17)
[2022-01-11] MEDS: ENOXAPARIN INJ 40 MG/0.4 ML SYR SQ SCH (11:40)
[2022-01-11] MEDS: oxyCODONE HCL IR 5 MG TAB (IMMEDIATE RELEASE) PO PRN ×2 (11:43→18:11)
--- NOTE | 2022-01-11 14:36 | Discharge Summary ---
Date of Service January 11, 2022 Admission HPI Per Admitting Provider Kym Murrieta is a 61yo female with PMHx significant for persistent a-fib (on BB/digoxin, no AC), chronic HFpEF (EF 55-60% in 10/2021), anemia/thalassemia, h/o PE (no longer on AC), PORTILLO, hypothyroidism and recurrent right hip infection who presented to [facility] ED on 01/07 due to significant right hip pain associated with "migraine". Patient reports that she has had progressively worsening right hip pain over last several months. For >1 month has been taking Oxycodone 10mg PO Q8H with intermittent Tylenol but this has not been controlling her baseline severe hip pain. Feels significant sharp hip pain and is unable to walk because of it. She is chronically largely wheelchair-bound although was previously able to ambulate several feet with a walker. Patient denies redness/warmth/swelling of skin over her right hip. Denies fever/chills. Denies missing any doses of medications. Denies chest pain or palpitations. She uses Lasix only as needed for LE edema and reports that she has had no LE edema for >3-4 weeks. Denies orthopnea/PND. In fact she has had decreased appetite and decreased PO intake due to being in constant significant pain. Of note the patient was scheduled for pre-operative evaluation for right hip arthroplasty removal - appointment was set for 01/09 at [facility]. Surgery was scheduled on 01/22. Patient denies alcohol use, denies smoking, denies drug use. Patient is homeless and has been living at her friend's house for several months and is unable to care for herself due to physical limitations and ambulatory dysfunction. Does not feel safe going home. In the ED the patient was in a-fib RVR rates up to 140s. Also was hypothermic with T35.6C. Normotensive and otherwise stable. Labs significant for WBC 13.11 (neutrophilic predominance and mild L shift), plts 666. Hgb 8 (micr ocytic/hypochromic, ~at baseline). Na low at 127 (baseline is low 130s), Cl 93. Cr WNL. TSH 5.874, FT4 1.05. CXR unremarkable. No pelvic imaging as of yet (although last XR right hip on 01/03 during last ED visit was without acute changes, and showed chronic lucency and sclerosis of acetabular cup of right hip arthroplasty). Patient received Lopressor 5mg IV x3 in the ED as well as Toprol XL 100mg PO (home dose) - HR improved to 100s. Also received Dexamethasone 10mg IM x1 and total of Oxycodone 15mg PO for pain, as well as lidocaine patch. Also received NSS 500cc bolus. Principal Diagnosis Staphylococcus bacteremia, Suspected right hip prosthesis infection, Severe right hip pain, Anemia, Rapid atrial fibrillation, ESBL Klebsiella UTI, H yponatremia Discharge Exam Constitutional WD/WN, vitals as above + morbidly obese Eyes + anicteric sclerae Neck trachea midline, no thyromegaly Respiratory normal respiratory effort, lungs clear to auscultation Cardiovascular Rate/Rhythm: regular rate and + irregularly irregular Heart Sounds: no murmur Extremities: no edema Chest (Breasts) Chest: normal inspection of chest Gastrointestinal (Abdomen) normal bowel sounds, soft, nontender, no hepatosplenomegaly Musculoskeletal Extremities: extremities normal to inspection; no cyanosis and no clubbing +TTP over right hip and groin Skin no rashes, warm and dry Neurologic moves all extremities and awake; no focal motor deficits Psychiatric A+Ox3, euthymic affect Lymphatic no lymphedema Discharge Data Allergies Allergy/AdvReac Type Severity Reaction Status Date / Time hylan G-F 20 Allergy Severe CAN'T Verified 01/07/22 17:41 REMEMBER mushroom Allergy Intermediate RASH Verified 01/07/22 17:41 Consultations 01/07/22 19:36 ED Decision to Admit Stat 01/07/22 22:36 Consult Cardiology Routine Consult Orthopedic Surgery Routine 01/11/22 14:04 Burn CD for patient Routine Ordered Studies 01/07/22 20:50 CT hip RT wo con Urgent Hospital Course (1) Atrial fibrillation with RVR: Kym Murrieta is a 61yo female with PMHx significant for persistent a-fib (on BB/digoxin, no AC), chronic HFpEF (EF 55-60% in 10/2021), anemia/thalassemia, h/o PE (no longer on AC), PORTILLO, hypothyroidism and recurrent right hip infection who presented to [facility] ED on 01/07 due to significant right hip pain associated with "migraine". In a-fib with RVR on presentation. Atrial Fibrillation with Rapid Ventricular Response Chronic persistent a-fib, with initial HRs up to 140s in ED. Suspect RVR is due to uncontrolled pain with possible contribution of infection and associated dehydration. - s/p Lopressor 5mg IV x3 and was given home PM dose of Toprol XL 100mg with improvement of HRs to 110s -Lower blood pressures did not allow for metoprolol to be given at times, but then got more tachycardic-lowered metoprolol succinate dose to 75 Mg p.o. twice daily and BPs improved -Increased digoxin to 0.250 Mg p.o. once daily and checked digoxin level on 01/11 and it was normal at 0.9 Digoxin level was low previously at 0.4 -rates now much improved control - consult Cardiology appreciated-medically optimized for Orthopedic surgery -Continue on telemetry Acute on Chronic Right Hip Pain Sepsis evidence by +BCx, hypothermia, tachycardia, hypotension, and leukocytosis H/o recurrent right hip infections, was scheduled for right hip arthroplasty removal and possible "Girdlestone" procedure at [facility] on 01/22. Patient has increasing right hip pain, and although denied fever/chills, presented to ED with hypothermia, a-fib with RVR (as stated above) and leukocytosis with neutrophilic predominance and left shift. Pain is likely due to loose hardware 2/2 recurrent infections, but cannot r/o current septic hip at this time. - CRP 16.82, ESR >130, procalcitonin normal -Blood cultures growing Staph epidermidis resistant to methicillin in one set of cultures and Coag negative Staph in both sets of cultures Repeat BCxs no growth to date - CT right hip w/o contrast shows evidence of hardware loosening involving the acetabular cup and acetabular fixation screws as well as mild acetabular protrusio with chronic appearing acetabular fractures -Leukocytosis now resolved but borderline high, remains afebrile -Appreciate orthopedic consultation-suspect ongoing infection in the hip and recommend tertiary care center referral for evaluation for removal of prosthesis-she has been accepted at [facility] -Continue daptomycin for coverage of possible joint infection/osteomyelitis and bacteremia -recommend ID consultation at [facility] -still not well controlled with pain-continue Tylenol to 1000 mg p.o. every 8 hours scheduled, oxycodone 10 mg p.o. every 6 hours as needed for moderate to severe pain, and IV Dilaudid 0.5 mg to every 4 hours as needed for severe pain - trend CBC, CRP, ESR, CMP UTI-now with ESBL Klebsiella in Ur cx. No significant urinary symptoms continue meropenem due to upcoming surgery but will need ID consult Hyponatremia Na 125 at lowest, baseline low 130s. Serum osmolality 270. Initially was susp ected to have hypotonic hypovolemic hyponatremia due to dehydration in context of chronically decreased PO intake due to pain and possible infection. However, sodium only mildly increased to 127 after crystalloid fluids initially Fluid restricted, held lasix and now Na+ up to 134 Could have SIADH secondary to pain as well -Free water fluid restrict to 1500 mL/day -Follow BMP -continue pain control -ok to use lasix 20mg daily prn rather than home dose of 20mg bid scheduled Chronic Microcytic Anemia; Thalassemia, with a history of gastric bypass surgery Iron studies show very low transferrin saturation 4% Hgb baseline 8-9 as per patient (microcytic/hypochromic, ~at baseline). Hemoglobin now down to 7.0 some of which may be hemodilution from IV fluids No signs of active bleeding. -Gave Venofer 3 mg IV once daily while here x3 doses - transfuse for Hgb <7 especially in preparation for upcoming possible hip surgery--> was to be given PRBCs on day of transfer but placed on hold due to transfer and is hemodynamically stable. However, recommend transfusion of blood prior to surgery at [place] -follow CBC Ambulatory Dysfunction Largely wheelchair-bound, due to chronic hip problems. Homeless, living at a friend's house, and unable to care for herself properly. -patient will likely need placement at rehab vs SNF after discharge Chronic HFpEF: EF 55-60% in 10/2021. Holding home Lasix as above. Continue home baby Aspirin and statin, although statin onhold while on Dapto. T2DM: A1c 6.5 in 11/2021. No previous A1c in our chart. Not on outpatient treatments. SSI while hospitalized. F/u with PCP for consideration of Metformin as outpatient JACEY: continue home Buspar, Cymbalta, and PRN Ativan. continue Ambien at bedtime GERD: continue home Protonix RLS: continue home Ropinirole Hypothyroidism: TSH mildly elevated here at 5.8. Continue home Synthroid and recommend repeat TSH in 4 to 6 weeks as an outpatient Chronic migraines: continue home Topiramate DVT Prophylaxis: Lovenox Code Status: full code Disposition: accepted at [facility] and transfer there today (2) Right hip pain: (3) Diabetes: (4) Leukocytosis: (5) Anemia: (6) Thalassemia: (7) Chronic heart failure with preserved ejection fraction (HFpEF): (8) Hypothyroidism: (9) Generalized anxiety disorder: (10) GERD (gastroesophageal reflux disease): (11) RLS (restless legs syndrome): (12) Migraines: (13) Iron deficiency anemia: (14) Bacteremia: (15) UTI (urinary tract infection): Total Time Total Time Spent Total Time Spent (In Minutes): 45 min Discharge Plan Discharge Items Patient Disposition: Transfer Acute Care Hospital Reason For Visit: A-FIB RVR, RIGHT HIP PAIN Discharge Diagnosis: Concern for right hip infection, Staphylococcus epidermidis bacteremia, Klebsiella pneumoniae UTI, rapid atrial fibrillation, hyponatremia Condition on Discharge: Fair Activity: As commented below Exercise/Sports: Rest today Non-emergency contact: Primary Care Provider and Account Specialist Call non-emergency contact if: you have any medication questions and your symptoms worsen Follow-up/Referrals: Mendoza Murrieta, DO [Primary Care Provider] - Diet: Carb Consistent or DM2 and Heart Healthy Addtl Attending Provider Instructions: Ms. Murrieta was admitted on 01/07 for afib with RVR and signs/symptoms of systemic infection. The concern was that her right hip was the source as no other infection etiology was found, and she has had multiple right hip infections. Transferred for Orthopedic Surgery management of infected right hip prosthesis. Blood cx were drawn and are positive for Staph epidermidis in one set and coagulase negative Staph both sets. I would treat this as a true bacteremia until we have repeat negative blood cultures and ID consultation. She also is growing Klebsiella pneumoniae ESBL in her urine which is being treated with Meropenem. She has chronic anemia due to thalassemia and iron deficiency (due to history of gastric bypass). Her baseline hemoglobin is 8-9 but she did drop slightly while here to 7.0, some of which is likely hemodilutional. She was treated with 2 doses of IV Venofer. She was going to be given one unit of PRBCs on the day of discharge but this was placed on hold due to transfer to [place]. She is not actively bleeding but should have a transfusion prior to any surgical procedure. Pending Studies at Discharge: Yes (Blood culture final results) Stand-Alone Forms: My [facility] Skilled Items Patient informed of condition?: Yes DNR: No Discharge Level of Care: Other Communicable Disease: No Discharge Prognosis: Stable Lines: Peripheral IV Urinary Catheter: No Medications and DC Order Prescriptions: New digoxin 250 mcg (0.25 mg) Tablet 0.25 mg PO QPM Qty: 30 0RF acetaminophen [Tylenol Extra Strength] 500 mg Tablet 1,000 mg PO Q8 Qty: 60 0RF metoprolol succinate 25 mg Tablet Extended Release 24 Hr 75 mg PO BID Qty: 180 0RF oxycodone 5 mg Tablet 10 mg PO Q6H PRN (Reason: moderate-severe pain) Qty: 20 0RF polyethylene glycol 3350 [Miralax] 17 gram Powder In Packet 17 g PO BID Qty: 60 0RF meropenem 500 mg recon soln 500 mg IV Q8H Qty: 10 0RF Continued lorazepam 0.5 mg tablet 0.5 mg PO DAILY PRN (Reason: anxiety) Qty: 30 0RF ropinirole 0.25 mg tablet 0.25 mg PO HS Qty: 30 3RF ropinirole 1 mg tablet 1 mg PO TID Qty: 90 3RF levothyroxine 50 mcg tablet 50 mcg PO DAILY Qty: 30 5RF buspirone 10 mg tablet 20 mg PO BID diclofenac sodium 1 % gel 2 g topical QID PRN (Reason: Pain) tramadol 50 mg Tablet 50 mg PO DIRECTED PRN (Reason: Pain) topiramate 100 mg Tablet 100 mg PO BID atorvastatin 10 mg Tablet 10 mg PO HS pantoprazole 40 mg Tablet,Delayed Release (Dr/Ec) 40 mg PO DAILY zolpidem [Ambien CR] 6.25 mg Tablet,Ext Release Multiphase 6.25 mg PO HS duloxetine 60 mg Capsule, Delayed Rel Sprinkle 60 mg PO BID aspirin 81 mg Tablet,Delayed Release (Dr/Ec) 81 mg PO QAM Qty: 30 1RF Changed furosemide [Lasix] 20 mg Tablet 20 mg PO QAM PRN (Reason: edema) Qty: 20 0RF Discontinued oxycodone 5 mg tablet 5 mg PO Q8H PRN (Reason: pain) Qty: 90 0RF digoxin 125 mcg (0.125 mg) tablet 125 mcg PO QPM Qty: 30 5RF Rx Instructions: TAKES IN AFTERNOON, HOLD IF HEART RATE < 60. cyclobenzaprine 10 mg Tablet 10 mg PO Q8H PRN (Reason: MUSCLE SPASMS) metoprolol succinate [Toprol XL] 100 mg tablet extended release 24 hr 100 mg PO BID Qty: 60 1RF Discharge Orders: Discharge Order (Routine); Ordered 01/11/22 Ordered By: Karly Coats Admission Data Admit Date/Time: 01/07/22 20:44 Attending Provider: Karly Coats Admit Provider: Taras Feng Primary Care Provider: Mendoza Murrieta Other Providers: Hussain Murrieta ; Juan J Lebron ; Misha Quach Other Interventions: Discharge Summary Assessment (RN) Last Done: 01/11/22 14:31 Coding Level of Care Code D/C DAY MANAGEMENT >30 MINS Diagnoses Atrial fibrillation with RVR I48.91 Right hip pain M25.551 Diabetes E11.9 Leukocytosis D72.829 Anemia D64.9 Thalassemia D56.9 Chronic heart failure with preserved ejection fraction (HFpEF) I50.32 Hypothyroidism E03.9 Generalized anxiety disorder F41.1 GERD (gastroesophageal reflux disease) K21.9 RLS (restless legs syndrome) G25.81 Migraines G43.909 Iron deficiency anemia D50.9 Bacteremia R78.81 UTI (urinary tract infection) N39.0
== END 2022-01-11 19:50 | disposition short-term general hospital (02) | DRG 559 ==
LOC: ED 13:36 → SUATTDRO 20:44 → 2N 20:44

== ENCOUNTER 2022-07-08 13:58 | Inpatient (IN) ==
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
--- NOTE | 2022-07-08 15:07 | XRay Report ---
XR chest 1V portable HISTORY: cough COMPARISON: Chest 01/07/2022. FINDINGS: No pneumothorax. No pleural effusions. The cardiac silhouette remains mildly enlarged. Ther e is mild pulmonary vascular congestion without overt edema. Small patchy airspace opacities within t he right lower lung zone. IMPRESSION: 1. Cardiomegaly with mild congestive change. 2. Small patchy airspace opacities within the right lower lobe likely represent a developing pneumoni a. ACT 112: Negative or not required by law. Electronically signed by: Bennie Smith M.D. 07/08/2022 3:06 PM
[2022-07-08] MEDS ORDERED: CEFEPIME 2,000 MG/20 ML VIAL IV STA (15:10)
[2022-07-08 15:31] LABS: Basophils # (auto) 0.04 K/uL (0-0.2); Basophils % (auto) 0.4 %; Eosinophils # (auto) 0.32 K/uL (0-0.50); Eosinophils % (auto) 3.4 %; Hematocrit (blood only) 30.7 % (34.1-44.9); Hemoglobin 9.6 g/dl (12.0-16.0); Immature Granulocytes # (auto) 0.03 K/uL (0.00-0.02); Immature Granulocytes % (auto) 0.3 %; Lymphocytes # (auto) 1.54 K/uL (1.2-3.4); Lymphocytes % (auto) 16.1 %; Mean Corpuscular Hemoglobin 17.9 pg (25.0-34.0); Mean Corpuscular Hgb Conc 31.3 g/dL (32.0-36.0); Mean Corpuscular Volume 57.2 fL (80.0-100.0); Monocytes # (auto) 0.81 K/uL (0.24-0.82); Monocytes % (auto) 8.5 %; Neutrophils % (auto) 71.3 %; RDW Coefficient of Variation 16.3 % (11.5-14.5); RDW Standard Deviation 31.8 fL (36.4-46.3); Red Blood Count 5.37 M/uL (3.93-5.22); White Blood Count 9.54 K/ul (4.8-10.8)
[2022-07-08 15:49] LABS: Partial Thromboplastin Ratio 1.1; Partial Thromboplastin Time 29.7 Seconds (21.0-31.0)
[2022-07-08 15:55] LABS: Albumin Globulin Ratio 0.7 (0.9-2); Albumin Level 3.8 gm/dl (3.4-5.0); BUN Creatinine Ratio 17.5 (10-20); Bilirubin,Total 0.8 mg/dl (0.2-1.0); Calcium 9.5 mg/dl (8.5-10.1); Creatinine Clr Calc Pharmacy 95.5 ml/min; Est GFR (African American) 92.9 ml/min; Est GFR (Non-African American) 80.1 ml/min; Globulin 5.3 gm/dl (2.5-4.0); Magnesium 1.7 mg/dl (1.7-2.4); Mean Platelet Volume 8.9 fL (9.4-12.3); Microcytosis Present; Platelet Count 540 K/uL (130-400); Potassium 3.9 mmol/L (3.5-5.1); Target Cells 2+; Total Protein 9.1 gm/dl (6.0-8.3)
[2022-07-08 15:59] LABS: Troponin I High Sensitivity 3.5 pg/ml (0-14)
[2022-07-08] MEDS ORDERED: FUROSEMIDE 40 MG/4 ML VIAL IV ONE (16:00)
[2022-07-08] MEDS ORDERED: MoRPHine SULFATE 10 MG/ML CARP/VIAL IV STA (16:21)
[2022-07-08] MEDS ORDERED: DIGOXIN 125 MCG in SYRINGE 9.5 ML IV ONE (16:22)
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
[2022-07-08 18:15] LABS: Influenza A virus by PCR Negative (Neg); Influenza B virus by PCR Negative (Neg); RSV by PCR Negative (Neg); SARS CoV2 RNA(COVID-19) Ceph NEGATIVE (Negative)
[2022-07-08] MEDS ORDERED: AZITHROMYCIN 500 MG in DEXTROSE 5% 250 ML IV ONE (18:45)
--- NOTE | 2022-07-08 18:55 | Ultrasound Report ---
BILATERAL LOWER EXTREMITY VENOUS DOPPLER HISTORY: Bilateral lower extremity edema COMPARISON STUDY: None. FINDINGS: There is normal compressibility, flow, and augmentation within the bilateral lower extremit y deep venous systems. IMPRESSION: No DVT within the right or left lower extremity. ACT 112: Negative or not required by law. Electronically signed by: Bennie Smith M.D. 07/08/2022 6:53 PM
[2022-07-08] MEDS ORDERED: MoRPHine SULFATE 4 MG/ML 1 ML CARP\\VIAL IV STA (20:47)
[2022-07-08] MEDS ORDERED: FUROSEMIDE 40 MG TAB PO PRN (21:09)
[2022-07-08] MEDS ORDERED: hydrOXYzine HCl 25 MG TAB PO PRN (21:09)
[2022-07-08] MEDS ORDERED: DICLOFENAC SOD 1% GEL 100 GM TUBE EXT PRN (21:09)
[2022-07-08] MEDS ORDERED: ONDANSETRON INJ 2 MG/ML 2 ML VIAL IV PRN (21:09)
[2022-07-08] MEDS: cefTRIAXone SODIUM 2,000 MG in DEXTROSE 5% 50 ML IV SCH (22:20)
[2022-07-08] MEDS: rOPINIRole HCL 0.25 MG TABLET PO SCH (22:48)
[2022-07-08] MEDS: ATORVASTATIN 10 MG TAB PO SCH (22:48)
[2022-07-08] MEDS: rOPINIRole HCL 1 MG TABLET PO SCH (22:49)
[2022-07-08] MEDS: APIXABAN 5 MG TABLET PO SCH (22:49)
[2022-07-08] MEDS: METOPROLOL SUCC 50MG EXT REL TAB PO SCH (22:49)
[2022-07-08] MEDS: busPIRone 5 MG TAB PO SCH (22:49)
[2022-07-08] MEDS: DOCUSATE SODIUM 100 MG CAP PO SCH (22:49)
[2022-07-08] MEDS: ACETAMINOPHEN 500 MG TAB PO SCH (22:50)
[2022-07-08] MEDS: POLYETHYLENE (MIRALAX) 17 GM PACK PO SCH (22:57)
[2022-07-09] MEDS: MoRPHine SULFATE 2 MG/ML CARP IV PRN ×2 (05:40→21:29)
[2022-07-09 05:55] LABS: Basophils # (auto) 0.04 K/uL (0-0.2); Basophils % (auto) 0.6 %; Eosinophils # (auto) 0.35 K/uL (0-0.50); Eosinophils % (auto) 4.9 %; Hematocrit (blood only) 31.7 % (34.1-44.9); Hemoglobin 9.9 g/dl (12.0-16.0); Immature Granulocytes # (auto) 0.08 K/uL (0.00-0.02); Immature Granulocytes % (auto) 1.1 %; Lymphocytes # (auto) 0.95 K/uL (1.2-3.4); Lymphocytes % (auto) 13.2 %; Mean Corpuscular Hemoglobin 17.6 pg (25.0-34.0); Mean Corpuscular Hgb Conc 31.2 g/dL (32.0-36.0); Mean Corpuscular Volume 56.3 fL (80.0-100.0); Monocytes # (auto) 0.75 K/uL (0.24-0.82); Monocytes % (auto) 10.4 %; Neutrophils # (auto) 5.04 K/uL (1.4-6.5); Neutrophils % (auto) 69.8 %; Nucleated RBC # (auto) 0.02 K/uL (0-0); Nucleated RBC % (auto) 0.3 %; RDW Coefficient of Variation 16.5 % (11.5-14.5); RDW Standard Deviation 30.7 fL (36.4-46.3); Red Blood Count 5.63 M/uL (3.93-5.22); White Blood Count 7.21 K/ul (4.8-10.8)
[2022-07-09 06:26] LABS: BUN Creatinine Ratio 15.9 (10-20); Calcium 9.5 mg/dl (8.5-10.1); Creatinine Clr Calc Pharmacy 86.8 ml/min; Est GFR (African American) 82.8 ml/min; Est GFR (Non-African American) 71.4 ml/min; Magnesium 1.8 mg/dl (1.7-2.4)
[2022-07-09 06:36] LABS: Mean Platelet Volume 9.1 fL (9.4-12.3); Platelet Count 537 K/uL (130-400)
[2022-07-09 06:37] LABS: Hypochromasia Present; Microcytosis Present; Target Cells 2+
[2022-07-09] MEDS: POLYETHYLENE (MIRALAX) 17 GM PACK PO SCH ×2 (07:41→21:28)
[2022-07-09] MEDS: ACETAMINOPHEN 500 MG TAB PO SCH ×3 (07:44→21:27)
--- NOTE | 2022-07-09 07:44 | Hospitalist Progress Note ---
Date of Service July 09, 2022 Assessment & Plan (1) Bilateral cellulitis of lower leg: Plan: - (2) Pneumonia: (3) Chronic heart failure with preserved ejection fraction (HFpEF): (4) GERD (gastroesophageal reflux disease): (5) RLS (restless legs syndrome): (6) Hyponatremia: (7) Atrial fibrillation, chronic: (8) Iron deficiency anemia: (9) Bed bug bite: (10) Generalized anxiety disorder: (11) Right hip pain: (12) Hypothyroidism: (13) HTN (hypertension): (14) Anemia: Plan 62-year-old female with past history of A. fib, bedbugs, anemia, CHF with preserved ejection fraction, GERD, hypothyroidism, anxiety who presents with worsening redness and swelling of her extremities at areas of bedbug bites and with some shortness of breath for 2-3 days. She has multiple bites on her lower extremities, photocopied below with a history of bedbugs in the surrounding area has asymmetrically acutely worsened to become erythematous. Select cellulitis superimposed on bites. B/l cellulitis sec to bug bite - 7 days of worsening bilateral lower leg redness, pain, swelling is likely developing cellulitis secondary to bed bug bites. - Patient given initial dose of cefepime in ED, will continue on Rocephin, wound care to be consulted for wounds on legs, as well as right hip, [place] [facility] [place] - Blood cultures collected on 07/09 and have NGTD. - contact precaution for bedbug/personal belonging bagged/observed. Acute on chronic HFpEF -Did receive a dose of 40 IV Lasix in the ED for mild pulmonary edema seen on CXR, will continue her home Lasix dosing, follow BMP. Pneumonia - Patient complaining of several days of shortness of breath and cough, without leukocytosis but CXR does show developing right lobe focal pneumonia. - Rocephin will cover daily for both cellulitis and pneumonia. Order incentive spirometry, flutter valve, other supportive care. Hyponatremia - Sodium 125, serum and urine osm, urine Na pending. Patient is nonsymptomatic, therefore will fluid restrict rather than give normal saline as she is already showing evidence of volume overload. - Repeat BMP in AM. A fib - Rate controlled A. fib here, continue Eliquis, digoxin, metoprolol. -Did receive IV digoxin here for subtherapeutic level, 0.7 Anemia -Patient has chronically low hgb with a baseline around 7-9. She is currently at baseline at 9.9 on 07/09. -MCV was 57.2 and a normal ferritin of 222.2 suggest some underlying thallessmia. -Will order Beta-globin labs in the AM. GERD, RLS, anxiety, hypothyroidism, hypertension -Continue home medications. Fluids: none Nutrition: heart healthy Code status: full code DVT ppx: on Eliquis Dispo: med/surg with tele Thank you for allowing me to participate in the care of your patient. -Dr. Gregor Red PGY1 Admission and Anticipated Discharge Date Admission Date: July 08, 2022 Supervising Physician Co-Signing Physician Notes Resident Physician Supervision Note: I independently interviewed and examined the patient and verified the felton history and physical, reviewed labs and image studies and agree with resident findings and care plan. Subjective Patient was seen beside this AM. She continues to c/o bilateral leg swelling and pain 2/2 bedbug infection. Patient is currently homeless and states that she needs to leave tomorrow afternoon because she is going to get an apartment. She states that the scabs on her legs are very itchy and painful and bleed. She also states that her legs are seeping fluid. She sates that her SOB and cough have improved since admission. Review of Systems Review of Systems: All systems reviewed & are unremarkable except as noted in HPI & below Physical Exam Physical Exam: General: awake, alert, no apparent distress Head: Normocephalic, atraumatic ENT: PERRL, EOMI, no pharyngeal exudate, mucous membranes moist Chest: Clear to auscultation, on room air, no adventitious breath sounds Cardiac: Regular rate and rhythm, no murmur, no JVD, normal peripheral pulses, good capillary refill Abdominal: NABS x 4 quadrants, soft, nontender to palpation, no rebound, guarding or tenderness Extremities: b/l legs are red with scattered lesions of varying sizes some appearing as bug bites, appear picked at, without any drainage; both legs are red, edematous, painful to touch; pressure ulcer on right hip/buttocks area Psych: Normal mood and affect Neuro: AAO x 3, strength intact bilaterally and rated 5/5, no motor deficits, speech is clear, no peripheral sensory deficits Skin: no rash or erythema Results & Data Results & Data ([facility]) Vital Signs (Past 12 Hours) Vital Signs Pulse Resp BP Pulse Ox Pulse Ox O2 Del Method O2 Del Method 07/09/22 04:23 85 16 111/70 97 Room Air 07/09/22 02:01 79 16 115/59 L 95 Room Air 07/08/22 23:29 89 18 126/60 95 Room Air 07/08/22 23:28 95 Room Air 07/08/22 22:21 84 16 119/67 96 Room Air 07/08/22 21:02 86 18 105/81 93 Room Air Resident Activity Tracking Resident Involvement: Resident Care Provided Care Provided: Adult Hospital Medicine (1) Bed bug bite Encounter type: initial encounter Qualified Code(s): W57.XXXA - Bitten or s tung by nonvenomous insect and other nonvenomous arthropods, initial encounter
[2022-07-09] MEDS: ASPIRIN 81 MG ECTAB PO SCH (07:45)
[2022-07-09] MEDS: APIXABAN 5 MG TABLET PO SCH ×2 (07:45→22:00)
[2022-07-09] MEDS: LEVOTHYROXINE SODIUM 75 MCG TABLET PO SCH (07:45)
[2022-07-09] MEDS: CYANOCOBALAMIN (B-12) 500 MCG TABLET PO SCH (07:46)
[2022-07-09] MEDS: DULoxetine HCL 30 MG CAP PO SCH (07:46)
[2022-07-09] MEDS: DOCUSATE SODIUM 100 MG CAP PO SCH ×2 (07:47→21:28)
[2022-07-09] MEDS: FERROUS SULFATE 325 MG TAB PO SCH (07:47)
[2022-07-09] MEDS: PANTOprazole 40 MG TAB PO SCH (07:48)
[2022-07-09] MEDS: FOLIC ACID 1 MG TAB PO SCH (07:48)
[2022-07-09] MEDS: METOPROLOL SUCC 50MG EXT REL TAB PO SCH ×2 (07:48→22:00)
[2022-07-09] MEDS: SENNA 8.6 MG TAB PO SCH (07:49)
[2022-07-09] MEDS: busPIRone 5 MG TAB PO SCH ×3 (07:49→22:00)
[2022-07-09] MEDS: PRENATAL VITAMIN 1 TAB PO SCH (07:49)
[2022-07-09] MEDS: rOPINIRole HCL 1 MG TABLET PO SCH ×3 (07:50→22:00)
[2022-07-09] MEDS: oxyCODONE HCL IR 5 MG TAB (IMMEDIATE RELEASE) PO PRN ×2 (09:32→16:56)
--- NOTE | 2022-07-09 14:47 | Electrocardiogram Report ---
Test Reason : Blood Pressure : / mmHG Vent. Rate : 095 BPM Atrial Rate : 096 BPM P-R Int : 000 ms QRS Dur : 086 ms QT Int : 340 ms P-R-T Axes : 000 029 -27 degrees QTc Int : 427 ms Atrial fibrillation Nonspecific ST and T wave abnormality Abnormal ECG When compared with ECG of 07-JAN-2022 15:36, No significant change was found Confirmed by Jose Juan Valencia ([id number]) on 07/09/2022 2:47:44 PM Referred By: REFERRED SELF Confirmed By:Jose Juan Valencia
[2022-07-09] MEDS: DIGOXIN 0.125 MG TAB PO SCH (16:29)
[2022-07-09] MEDS: ZOLPIDEM TARTRATE 5 MG TAB PO PRN (21:59)
[2022-07-09] MEDS: ATORVASTATIN 10 MG TAB PO SCH (22:00)
[2022-07-09] MEDS: tiZANidine HCL 4 MG TABLET PO PRN (22:00)
[2022-07-09] MEDS: rOPINIRole HCL 0.25 MG TABLET PO SCH (22:00)
[2022-07-09] MEDS: cefTRIAXone SODIUM 2,000 MG in DEXTROSE 5% 50 ML IV SCH (23:06)
[2022-07-10] MEDS: ACETAMINOPHEN 500 MG TAB PO SCH ×3 (05:52→22:05)
[2022-07-10] MEDS: LEVOTHYROXINE SODIUM 75 MCG TABLET PO SCH (05:52)
[2022-07-10] MEDS: oxyCODONE HCL IR 5 MG TAB (IMMEDIATE RELEASE) PO PRN ×3 (05:54→19:17)
--- NOTE | 2022-07-10 06:57 | Hospitalist Progress Note ---
Date of Service July 10, 2022 Assessment & Plan (1) Bilateral cellulitis of lower leg: Plan: - (2) Pneumonia: (3) Chronic heart failure with preserved ejection fraction (HFpEF): (4) GERD (gastroesophageal reflux disease): (5) RLS (restless legs syndrome): (6) Hyponatremia: (7) Atrial fibrillation, chronic: (8) Iron deficiency anemia: (9) Bed bug bite: (10) Generalized anxiety disorder: (11) Right hip pain: (12) Hypothyroidism: (13) HTN (hypertension): (14) Anemia: Plan 62-year-old female with past history of A. fib, bedbugs, anemia, CHF with preserved ejection fraction, GERD, hypothyroidism, anxiety who presents with worsening redness and swelling of her extremities at areas of bedbug bites and with some shortness of breath for 2-3 days. She has multiple bites on her lower extremities, photocopied below with a history of bedbugs in the surrounding area has asymmetrically acutely worsened to become erythematous. Select cellulitis superimposed on bites. B/l cellulitis sec to bug bite - 7 days of worsening bilateral lower leg redness, pain, swelling - Patient given initial dose of cefepime in ED, will continue on Rocephin, wound care to be consulted for wounds on legs, as well as right hip, s/p right hip revision at [facility] [place]. - Blood cultures collected on 07/09 and have NGTD. MRSA swab negative. - contact precaution for bedbug/personal belonging bagged/observed. - Patient continues to have no leukocytosis and VSS. Will transition to oral abx and possibly D/C patient tomorrow. Acute on chronic HFpEF -Did receive a dose of 40 IV Lasix in the ED for mild pulmonary edema seen on CXR, will continue her home Lasix dosing, follow BMP. Pneumonia - Patient complaining of several days of shortness of breath and cough, without leukocytosis but CXR does show developing right lobe focal pneumonia. - Rocephin will cover daily for both cellulitis and pneumonia. Order incentive spirometry, flutter valve, other supportive care. Hyponatremia - Sodium 125 on 07/08, serum and urine osm collected. urine osmo was 169, Urine sodium was 31. -Patient is nonsymptomatic, therefore will fluid restrict rather than give normal saline as she is already showing evidence of volume overload. Patient's hyponatremia continues to improve. Was 132 on 07/10. - Continue to monitor BMP in morning labs. A fib - Rate controlled A. fib here, continue Eliquis, digoxin, metoprolol. - Did receive IV digoxin on 07/08 for subtherapeutic level, 0.7 Anemia -Patient has chronically low hgb with a baseline around 7-9. She is currently at baseline at 9.6 on 07/10. -MCV was 57.2 and a normal ferritin of 222.2 suggest some underlying juana lassemia. -Beta-globin labs pending. GERD, RLS, anxiety, hypothyroidism, hypertension -Continue home medications. Right leg pain - chronic off and on RLS/radicular -prn oxycodone helping. Fluids: none Nutrition: heart healthy Code status: full code DVT ppx: on Eliquis Dispo: med/surg with tele, Inventory Auditor consulted for patient Thank you for allowing me to participate in the care of your patient. -Dr. Gregor Red PGY1 Admission and Anticipated Discharge Date Admission Date: July 08, 2022 Supervising Physician Co-Signing Physician Notes Resident Physician Supervision Note: I independently interviewed and examined the patient and verified the felton history and physical, reviewed labs and image studies and agree with resident findings and care plan. Subjective Patient was seen beside this AM. She is still c/o bilateral LE pain and itchiness that has improved some since admission and with oxycodone. She states that morphine only helps the pain for a couple of seconds but the oxycodone helps for 4 hours. She notes that she was able to sleep well last night for the first time in a long time. She states that she feels a little nausea but has not episodes of vomiting. Patient is no longer having any SOB or cough. She denies any CP or palpations at this time. Patient requests to to talk to the cnc programmer at this time to help her pray. Review of Systems Review of Systems: All systems reviewed & are unremarkable except as noted in HPI & below Physical Exam Physical Exam: General: awake, alert, no apparent distress Head: Normocephalic, atraumatic ENT: PERRL, EOMI, no pharyngeal exudate, mucous membranes moist Chest: Clear to auscultation, on room air, no adventitious breath sounds Cardiac: Regular rate and rhythm, no murmur, no JVD, normal peripheral pulses, good capillary refill Abdominal: NABS x 4 quadrants, soft, nontender to palpation, no rebound, guarding or tenderness Extremities: b/l legs are red with scattered lesions of varying sizes some appearing as bug bites, appear picked at, without any drainage; both legs are red, edematous, painful to touch; pressure ulcer on right hip/buttocks area Psych: Normal mood and affect Neuro: AAO x 3, strength intact bilaterally and rated 5/5, no motor deficits, speech is clear, no peripheral sensory deficits Skin: no rash or erythema Results & Data Results & Data ([facility]) Vital Signs (Past 12 Hours) Vital Signs Temp Pulse Resp BP BP Pulse Ox Pulse Ox 07/09/22 23:00 95 07/10/22 01:00 07/09/22 19:40 36.7 C 115 H 18 84/44 L 91/58 L 95 O2 Del Method 07/09/22 23:00 07/10/22 01:00 Room Air 07/09/22 19:40 Room Air Resident Activity Tracking Resident Involvement: Resident Care Provided Care Provided: Adult Hospital Medicine (1) Bed bug bite Encounter type: initial encounter Qualified Code(s): W57.XXXA - Bitten or stung by nonvenomous insect and other nonvenomous arthropods, initial encounter
[2022-07-10 08:30] LABS: Basophils # (auto) 0.03 K/uL (0-0.2); Basophils % (auto) 0.5 %; Eosinophils # (auto) 0.37 K/uL (0-0.50); Eosinophils % (auto) 5.7 %; Hematocrit (blood only) 31.8 % (34.1-44.9); Hemoglobin 9.6 g/dl (12.0-16.0); Immature Granulocytes # (auto) 0.01 K/uL (0.00-0.02); Immature Granulocytes % (auto) 0.2 %; Lymphocytes # (auto) 1.35 K/uL (1.2-3.4); Lymphocytes % (auto) 20.8 %; Mean Corpuscular Hemoglobin 17.4 pg (25.0-34.0); Mean Corpuscular Hgb Conc 30.2 g/dL (32.0-36.0); Mean Corpuscular Volume 57.7 fL (80.0-100.0); Monocytes # (auto) 0.74 K/uL (0.24-0.82); Monocytes % (auto) 11.4 %; Neutrophils % (auto) 61.4 %; RDW Coefficient of Variation 15.9 % (11.5-14.5); RDW Standard Deviation 31.5 fL (36.4-46.3); Red Blood Count 5.51 M/uL (3.93-5.22)
[2022-07-10 08:45] LABS: Mean Platelet Volume 8.8 fL (9.4-12.3); Platelet Count 475 K/uL (130-400)
[2022-07-10] MEDS: POLYETHYLENE (MIRALAX) 17 GM PACK PO SCH ×2 (08:57→22:04)
[2022-07-10] MEDS ORDERED: Flu Vaccine (Fluarix) 0.5mL SYR (Standard Dose) IM ONE (09:00)
[2022-07-10] MEDS: PANTOprazole 40 MG TAB PO SCH (09:01)
[2022-07-10] MEDS: DOCUSATE SODIUM 100 MG CAP PO SCH ×2 (09:01→22:04)
[2022-07-10] MEDS: FERROUS SULFATE 325 MG TAB PO SCH (09:01)
[2022-07-10] MEDS: busPIRone 5 MG TAB PO SCH ×3 (09:01→22:04)
[2022-07-10] MEDS: APIXABAN 5 MG TABLET PO SCH ×2 (09:01→22:03)
[2022-07-10] MEDS: ASPIRIN 81 MG ECTAB PO SCH (09:01)
[2022-07-10] MEDS: SENNA 8.6 MG TAB PO SCH (09:01)
[2022-07-10] MEDS: FOLIC ACID 1 MG TAB PO SCH (09:02)
[2022-07-10] MEDS: CYANOCOBALAMIN (B-12) 500 MCG TABLET PO SCH (09:02)
[2022-07-10] MEDS: rOPINIRole HCL 1 MG TABLET PO SCH ×3 (09:02→22:03)
[2022-07-10] MEDS: DULoxetine HCL 30 MG CAP PO SCH (09:02)
[2022-07-10] MEDS: PRENATAL VITAMIN 1 TAB PO SCH (09:02)
[2022-07-10] MEDS: METOPROLOL SUCC 50MG EXT REL TAB PO SCH ×2 (09:03→22:03)
[2022-07-10 09:25] LABS: Echinocytes 1+; Polychromasia 1+; Target Cells 2+
[2022-07-10 10:37] LABS: BUN Creatinine Ratio 19.7 (10-20); Calcium 9.2 mg/dl (8.5-10.1); Creatinine Clr Calc Pharmacy 91.4 ml/min; Est GFR (African American) 98.8 ml/min; Est GFR (Non-African American) 85.3 ml/min
[2022-07-10] MEDS: diphenhydrAMINE Capsule 25 MG CAP PO PRN (12:58)
[2022-07-10] MEDS: DIGOXIN 0.125 MG TAB PO SCH (17:14)
[2022-07-10] MEDS: LORazepam 0.5 MG TAB PO PRN (19:17)
[2022-07-10] MEDS: tiZANidine HCL 4 MG TABLET PO PRN (19:18)
[2022-07-10] MEDS: cefTRIAXone SODIUM 2,000 MG in DEXTROSE 5% 50 ML IV SCH (22:03)
[2022-07-10] MEDS: ATORVASTATIN 10 MG TAB PO SCH (22:04)
[2022-07-10] MEDS: rOPINIRole HCL 0.25 MG TABLET PO SCH (22:04)
[2022-07-10] MEDS: ZOLPIDEM TARTRATE 5 MG TAB PO PRN (22:13)
[2022-07-11] MEDS: LEVOTHYROXINE SODIUM 75 MCG TABLET PO SCH (05:49)
[2022-07-11] MEDS: ACETAMINOPHEN 500 MG TAB PO SCH ×3 (05:50→21:04)
--- NOTE | 2022-07-11 06:57 | Hospitalist Progress Note ---
Date of Service July 11, 2022 Assessment & Plan (1) Bilateral cellulitis of lower leg: Plan: - (2) Pneumonia: (3) Chronic heart failure with preserved ejection fraction (HFpEF): (4) GERD (gastroesophageal reflux disease): (5) RLS (restless legs syndrome): (6) Hyponatremia: (7) Atrial fibrillation, chronic: (8) Iron deficiency anemia: (9) Bed bug bite: (10) Generalized anxiety disorder: (11) Right hip pain: (12) Hypothyroidism: (13) HTN (hypertension): (14) Anemia: Plan 62-year-old female with past history of A. fib, bedbugs, anemia, CHF with preserved ejection fraction, GERD, hypothyroidism, anxiety who presents with worsening redness and swelling of her extremities at areas of bedbug bites and with some shortness of breath for 2-3 days. She has multiple bites on her lower extremities, photocopied below with a history of bedbugs in the surrounding area has asymmetrically acutely worsened to become erythematous. Select cellulitis superimposed on bites. B/l cellulitis sec to bug bite - 7 days of worsening bilateral lower leg redness, pain, swelling - Patient given initial dose of cefepime in ED, will continue on Rocephin, wound care to be consulted for wounds on legs, as well as right hip[place] [facility] [place] Blood cultures collected on 07/09 and have NGTD. MRSA swab negative. - contact precaution for bedbug/personal belonging bagged/observed. - Patient continues to have no leukocytosis and VSS. - Transitioned from IV abx to oral Augmentin 875 BID for 5 days. Acute on chronic HFpEF -Did receive a dose of 40 IV Lasix in the ED for mild pulmonary edema seen on CXR, will continue her home Lasix dosing, follow BMP. Pneumonia - Patient complaining of several days of shortness of breath and cough, without leukocytosis but CXR does show developing right lobe focal pneumonia. - Augmentin will cover for both cellulitis and pneumonia. Order incentive spirometry, flutter valve, other supportive care. Hyponatremia - Sodium 125 on 07/08, serum and urine osm collected. urine osmo was 169, Urine sodium was 31. - continue water restriction. Na - 134 on 07/11 - Continue to monitor BMP in morning labs. No further changes needed at this time. A fib - Rate controlled A. fib here, continue Eliquis, digoxin, metoprolol. - Did receive IV digoxin on 07/08 for subtherapeutic level, 0.7 Anemia -Patient has chronically low hgb with a baseline around 7-9. She is currently at baseline at 9.6 on 07/10. -MCV was 57.2 and a normal ferritin of 222.2 suggest some underlying thalassemia. -Beta-globin labs pending. GERD, RLS, anxiety, hypothyroidism, hypertension -Continue home medications. Right leg pain -chronic off and on at the R LE. -prn oxycodone helping. Fluids: none Nutrition: heart healthy Code status: full code DVT ppx: on Eliquis Dispo: med/surg with tele, D/C pending placement Thank you for allowing me to participate in the care of your patient. -Dr. Gregor Red PGY1 Admission and Anticipated Discharge Date Admission Date: July 08, 2022 Supervising Physician Co-Signing Physician Notes Resident Physician Supervision Note: I independently interviewed and examined the patient and verified the felton history and physical, reviewed labs and image studies and agree with resident findings and care plan. Subjective Patient was seen beside this AM. She is still c/o bilateral LE pain and itchiness that has improved some since admission and with oxycodone. The pain on the L leg is worse than the R. She states that she is sleeping through the night. Denies any SOB, CP, and palpations at this time. Review of Systems Review of Systems: All systems reviewed & are unremarkable except as noted in HPI & below Physical Exam Physical Exam: General: awake, alert, no apparent distress Head: Normocephalic, atraumatic ENT: PERRL, EOMI, no pharyngeal exudate, mucous membranes moist Chest: Clear to auscultation, on room air, no adventitious breath sounds Cardiac: Regular rate and rhythm, no murmur, no JVD, normal peripheral pulses, good capillary refill Abdominal: NABS x 4 quadrants, soft, nontender to palpation, no rebound, guarding or tenderness Extremities: b/l legs are red with scattered lesions of varying sizes some appearing as bug bites, appear picked at, without any drainage; both legs are red, edematous, painful to touch; pressure ulcer on right hip/buttocks area Psych: Normal mood and affect Neuro: AAO x 3, strength intact bilaterally and rated 5/5, no motor deficits, speech is clear, no peripheral sensory deficits Skin: no rash or erythema Results & Data Results & Data ([facility]) Vital Signs (Past 12 Hours) Vital Signs Temp Pulse Resp BP BP Pulse Ox O2 Del Method 07/11/22 04:17 36.7 C 79 18 109/58 L 92 Room Air 07/10/22 23:00 07/10/22 23:11 37.0 C 68 18 122/68 96 Room Air 07/10/22 19:45 36.7 C 82 20 108/73 94 Room Air O2 Del Method 07/11/22 04:17 07/10/22 23:00 Room Air 07/10/22 23:11 07/10/22 19:45 Resident Activity Tracking Resident Involvement: Resident Care Provided Care Provided: Adult Hospital Medicine (1) Bed bug bite Encounter type: initial encounter Qualified Code(s): W57.XXXA - Bitten or stung by nonvenomous insect and other nonvenomous arthropods, initial encounter
[2022-07-11 08:06] LABS: Basophils # (auto) 0.04 K/uL (0-0.2); Basophils % (auto) 0.6 %; Eosinophils # (auto) 0.39 K/uL (0-0.50); Eosinophils % (auto) 5.5 %; Hematocrit (blood only) 28.6 % (34.1-44.9); Hemoglobin 8.8 g/dl (12.0-16.0); Immature Granulocytes # (auto) 0.02 K/uL (0.00-0.02); Immature Granulocytes % (auto) 0.3 %; Lymphocytes # (auto) 1.77 K/uL (1.2-3.4); Lymphocytes % (auto) 24.9 %; Mean Corpuscular Hemoglobin 17.3 pg (25.0-34.0); Mean Corpuscular Hgb Conc 30.8 g/dL (32.0-36.0); Mean Corpuscular Volume 56.3 fL (80.0-100.0); Monocytes # (auto) 0.71 K/uL (0.24-0.82); Neutrophils # (auto) 4.19 K/uL (1.4-6.5); Neutrophils % (auto) 58.7 %; RDW Coefficient of Variation 15.9 % (11.5-14.5); RDW Standard Deviation 30.7 fL (36.4-46.3); Red Blood Count 5.08 M/uL (3.93-5.22); White Blood Count 7.12 K/ul (4.8-10.8)
[2022-07-11 08:38] LABS: BUN Creatinine Ratio 23.5 (10-20); Calcium 9.2 mg/dl (8.5-10.1); Est GFR (African American) 110.2 ml/min; Est GFR (Non-African American) 95.1 ml/min; Potassium 4.2 mmol/L (3.5-5.1)
[2022-07-11 09:12] LABS: Mean Platelet Volume 9.1 fL (9.4-12.3); Microcytosis Present; Platelet Count 501 K/uL (130-400); Target Cells 2+
[2022-07-11] MEDS: FERROUS SULFATE 325 MG TAB PO SCH (09:43)
[2022-07-11] MEDS: APIXABAN 5 MG TABLET PO SCH ×2 (09:44→21:04)
[2022-07-11] MEDS: SENNA 8.6 MG TAB PO SCH (09:44)
[2022-07-11] MEDS: ASPIRIN 81 MG ECTAB PO SCH (09:45)
[2022-07-11] MEDS: FOLIC ACID 1 MG TAB PO SCH (09:45)
[2022-07-11] MEDS: rOPINIRole HCL 1 MG TABLET PO SCH ×3 (09:45→21:02)
[2022-07-11] MEDS: busPIRone 5 MG TAB PO SCH ×3 (09:45→21:03)
[2022-07-11] MEDS: DULoxetine HCL 30 MG CAP PO SCH (09:45)
[2022-07-11] MEDS: CYANOCOBALAMIN (B-12) 500 MCG TABLET PO SCH (09:46)
[2022-07-11] MEDS: METOPROLOL SUCC 50MG EXT REL TAB PO SCH ×2 (09:46→21:02)
[2022-07-11] MEDS: PANTOprazole 40 MG TAB PO SCH (09:47)
[2022-07-11] MEDS: DOCUSATE SODIUM 100 MG CAP PO SCH ×2 (09:47→21:04)
[2022-07-11] MEDS: POLYETHYLENE (MIRALAX) 17 GM PACK PO SCH ×2 (09:47→20:54)
[2022-07-11] MEDS: oxyCODONE HCL IR 5 MG TAB (IMMEDIATE RELEASE) PO PRN ×3 (09:47→22:46)
[2022-07-11] MEDS: PRENATAL VITAMIN 1 TAB PO SCH (09:47)
[2022-07-11] MEDS: AMOXICILLIN/CLAVULANATE 875 MG TAB PO SCH (16:25)
[2022-07-11] MEDS: DIGOXIN 0.125 MG TAB PO SCH (16:25)
[2022-07-11] MEDS: LORazepam 0.5 MG TAB PO PRN (21:02)
[2022-07-11] MEDS: ZOLPIDEM TARTRATE 5 MG TAB PO PRN (21:02)
[2022-07-11] MEDS: rOPINIRole HCL 0.25 MG TABLET PO SCH (21:02)
[2022-07-11] MEDS: ATORVASTATIN 10 MG TAB PO SCH (21:04)
[2022-07-11] MEDS: diphenhydrAMINE Capsule 25 MG CAP PO PRN (22:46)
[2022-07-12] MEDS: LEVOTHYROXINE SODIUM 75 MCG TABLET PO SCH (06:08)
[2022-07-12] MEDS: oxyCODONE HCL IR 5 MG TAB (IMMEDIATE RELEASE) PO PRN ×2 (06:08→12:04)
[2022-07-12] MEDS: ACETAMINOPHEN 500 MG TAB PO SCH ×2 (06:08→13:19)
--- NOTE | 2022-07-12 06:49 | Hospitalist Progress Note ---
Date of Service July 12, 2022 Assessment & Plan (1) Bilateral cellulitis of lower leg: Plan: - (2) Pneumonia: (3) Chronic heart failure with preserved ejection fraction (HFpEF): (4) GERD (gastroesophageal reflux disease): (5) RLS (restless legs syndrome): (6) Hyponatremia: (7) Atrial fibrillation, chronic: (8) Iron deficiency anemia: (9) Bed bug bite: (10) Generalized anxiety disorder: (11) Right hip pain: (12) Hypothyroidism: (13) HTN (hypertension): (14) Anemia: Plan 62-year-old female with past history of A. fib, bedbugs, anemia, CHF with preserved ejection fraction, GERD, hypothyroidism, anxiety who presents with worsening redness and swelling of her extremities at areas of bedbug bites and with some shortness of breath for 2-3 days. She has multiple bites on her lower extremities, photocopied below with a history of bedbugs in the surrounding area has asymmetrically acutely worsened to become erythematous. Select cellulitis superimposed on bites. B/l cellulitis sec to bug bite - 7 days of worsening bilateral lower leg redness, pain, swelling - Patient given initial dose of cefepime in ED, will continue on Rocephin, wound care to be consulted for wounds on legs, as well as right hip, s/p right hip revision at [facility] [place]. - Blood cultures collected on 07/09 and have NGTD. MRSA swab negative. - contact precaution for bedbug/personal belonging bagged/observed. - Patient continues to have no leukocytosis and VSS. - Transitioned from IV abx to oral Augmentin 875 BID for 5 days. Acute on chronic HFpEF -Did receive a dose of 40 IV Lasix in the ED for mild pulmonary edema seen on CXR, will continue her home Lasix dosing, follow BMP. Pneumonia - Patient complaining of several days of shortness of breath and cough, without leukocytosis but CXR does show developing right lobe focal pneumonia. - Augmentin will cover for both cellulitis and pneumonia. Order incentive spirometry, flutter valve, other supportive care. Hyponatremia - Sodium 125 on 07/08, serum and urine osm collected. urine osmo was 169, Urine sodium was 31. - continue water restriction. Na - 134 on 07/11 - Continue to monitor BMP in morning labs. No further changes needed at this time. A fib - Rate controlled A. fib here, continue Eliquis, digoxin, metoprolol. - Did receive IV digoxin on 07/08 for subtherapeutic level, 0.7 Anemia -Patient has chronically low hgb with a baseline around 7-9. She is currently at baseline at 9.6 on 07/10. -MCV was 57.2 and a normal ferritin of 222.2 suggest some underlying thalassemia. -Beta-globin labs pending. GERD, RLS, anxiety, hypothyroidism, hypertension -Continue home medications. Right leg pain -chronic off and on at the R LE. -prn oxycodone helping. Fluids: none Nutrition: heart healthy Code status: full code DVT ppx: on Eliquis Dispo: med/surg with tele, D/C pending placement Thank you for allowing me to participate in the care of your patient. -Dr. Gregor Red PGY1 Admission and Anticipated Discharge Date Admission Date: July 08, 2022 Results & Data Results & Data ([facility]) Vital Signs (Past 12 Hours) Vital Signs Temp Pulse Resp BP BP Pulse Ox O2 Del Method 07/11/22 22:50 36.8 C 83 16 137/85 95 Room Air 07/11/22 20:03 36.7 C 81 20 112/72 95 Room Air (1) Bed bug bite Encounter type: initial encounter Qualified Code(s): W57.XXXA - Bitten or stung by nonvenomous insect and other nonvenomous arthropods, initial encounter
[2022-07-12 06:53] LABS: Basophils # (auto) 0.04 K/uL (0-0.2); Basophils % (auto) 0.6 %; Hematocrit (blood only) 28.7 % (34.1-44.9); Hemoglobin 8.7 g/dl (12.0-16.0); Immature Granulocytes # (auto) 0.03 K/uL (0.00-0.02); Immature Granulocytes % (auto) 0.4 %; Lymphocytes # (auto) 1.98 K/uL (1.2-3.4); Lymphocytes % (auto) 29.5 %; Mean Corpuscular Hemoglobin 17.5 pg (25.0-34.0); Mean Corpuscular Hgb Conc 30.3 g/dL (32.0-36.0); Mean Corpuscular Volume 57.7 fL (80.0-100.0); Monocytes # (auto) 0.74 K/uL (0.24-0.82); Neutrophils # (auto) 3.53 K/uL (1.4-6.5); Neutrophils % (auto) 52.5 %; RDW Coefficient of Variation 15.9 % (11.5-14.5); RDW Standard Deviation 31.7 fL (36.4-46.3); Red Blood Count 4.97 M/uL (3.93-5.22); White Blood Count 6.72 K/ul (4.8-10.8)
[2022-07-12 07:03] LABS: Mean Platelet Volume 8.9 fL (9.4-12.3); Platelet Count 482 K/uL (130-400)
[2022-07-12 07:26] LABS: Microcytosis Present; Polychromasia 1+; Target Cells 2+
[2022-07-12] MEDS: POLYETHYLENE (MIRALAX) 17 GM PACK PO SCH (07:49)
[2022-07-12] MEDS: PRENATAL VITAMIN 1 TAB PO SCH (07:50)
[2022-07-12] MEDS: diphenhydrAMINE Capsule 25 MG CAP PO PRN (07:50)
[2022-07-12] MEDS: DOCUSATE SODIUM 100 MG CAP PO SCH (07:50)
[2022-07-12] MEDS: FOLIC ACID 1 MG TAB PO SCH (07:50)
[2022-07-12] MEDS: PANTOprazole 40 MG TAB PO SCH (07:50)
[2022-07-12] MEDS: FERROUS SULFATE 325 MG TAB PO SCH (07:50)
[2022-07-12] MEDS: ASPIRIN 81 MG ECTAB PO SCH (07:51)
[2022-07-12] MEDS: busPIRone 5 MG TAB PO SCH ×2 (07:51→13:17)
[2022-07-12] MEDS: CYANOCOBALAMIN (B-12) 500 MCG TABLET PO SCH (07:51)
[2022-07-12] MEDS: DULoxetine HCL 30 MG CAP PO SCH (07:52)
[2022-07-12] MEDS: SENNA 8.6 MG TAB PO SCH (07:52)
[2022-07-12] MEDS: rOPINIRole HCL 1 MG TABLET PO SCH ×2 (07:52→13:16)
[2022-07-12] MEDS: METOPROLOL SUCC 50MG EXT REL TAB PO SCH (07:52)
[2022-07-12] MEDS: AMOXICILLIN/CLAVULANATE 875 MG TAB PO SCH ×2 (07:53→17:32)
[2022-07-12] MEDS: APIXABAN 5 MG TABLET PO SCH (07:54)
[2022-07-12 08:39] LABS: Calcium 9.3 mg/dl (8.5-10.1); Est GFR (Non-African American) 97.5 ml/min; Potassium 4.1 mmol/L (3.5-5.1)
--- NOTE | 2022-07-12 11:49 | Discharge Summary ---
Date of Service July 12, 2022 Admission HPI Per Admitting Provider Kym Murrieta is a 62 y/o female with a past medical history significant for HFpEF, A. fib, anemia/thalassemia, history of PE, PORTILLO, hypothyroidism, and recent bedbug infection who is presenting today with bilateral leg swelling and pain. Patient has a history of homelessness and recently been staying in a hotel and noticed bugs crawling in the blankets and believes she has several bug bites on her legs that have been infected. She also has a history of severe anxiety and depression and notes she picks at her scabs, which she has been doing. Legs have become red, swollen, and very very painful to touch. She is also noted some shortness of breath and increased cough, but denies any fever or chills. On presentation, she is tachycardic at 119, otherwise vital signs within normal limits and stable. Labs notable for sodium 125, serum osmolality 265. Without leukocytosis, lactate 1.8. Hgb 9.6, improved from recent lab values. BNP is 145, labs otherwise within normal limits. Her CXR shows cardiomegaly with mild congestive change and small patchy airspace opacities within the right lower lobe that likely represent developing pneumonia. In the ED, she received 40 IV Lasix, digoxin as her level was low, cefepime, and IV morphine for severe leg pain. Admission Exam Per Admitting Provider General: awake, alert, no apparent distress Head: Normocephalic, atraumatic ENT: PERRL, EOMI, no pharyngeal exudate, mucous membranes moist Chest: Clear to auscultation, on room air, no adventitious breath sounds Cardiac: Regular rate and rhythm, no murmur, no JVD, normal peripheral pulses, good capillary refill Abdominal: NABS x 4 quadrants, soft, nontender to palpation, no rebound, guarding or tenderness Extremities: b/l legs are red with scattered lesions of varying sizes some appearing as bug bites, appear picked at, without any drainage; both legs are red, edematous, painful to touch; pressure ulcer on right hip/buttocks area Psych: Normal mood and affect Neuro: AAO x 3, strength intact bilaterally and rated 5/5, no motor deficits, speech is clear, no peripheral sensory deficits Skin: no rash or erythema Principal Diagnosis Bilateral cellulitis, bedbugs, and chronic ulcers Discharge Exam General: awake, alert, no apparent distress Head: Normocephalic, atraumatic ENT: PERRL, EOMI, no pharyngeal exudate, mucous membranes moist Chest: Clear to auscultation, on room air, no adventitious breath sounds Cardiac: Regular rate and rhythm, no murmur, no JVD, normal peripheral pulses, good capillary refill Abdominal: NABS x 4 quadrants, soft, nontender to palpation, no rebound, guarding or tenderness Extremities: b/l legs are red with scattered lesions of varying sizes some appearing as bug bites, appear picked at, without any drainage; both legs are red, edematous, painful to touch; pressure ulcer on right hip/buttocks area Psych: Normal mood and affect Neuro: AAO x 3, strength intact bilaterally and rated 5/5, no motor deficits, speech is clear, no peripheral sensory deficits Skin: no rash or erythema Discharge Data Allergies Allergy/AdvReac Type Severity Reaction Status Date / Time hylan G-F 20 Allergy Severe CAN'T Verified 05/24/22 21:58 REMEMBER mushroom Allergy Intermediate RASH Verified 05/24/22 21:58 Consultations 07/08/22 16:27 ED Decision to Admit Stat Ordered Studies 07/08/22 14:52 US venous doppler LE Stat Hospital Course (1) Bilateral cellulitis of lower leg: (2) Pneumonia: (3) Chronic heart failure with preserved ejection fraction (HFpEF): (4) GERD (gastroesophageal reflux disease): (5) RLS (restless legs syndrome): (6) Hyponatremia: (7) Atrial fibrillation, chronic: (8) Iron deficiency anemia: (9) Bed bug bite: (10) Generalized anxiety disorder: (11) Right hip pain: (12) Hypothyroidism: (13) HTN (hypertension): (14) Anemia: Plan 62-year-old female with past history of A. fib, bedbugs, anemia, CHF with preserved ejection fraction, GERD, hypothyroidism, anxiety who presents with worsening redness and swelling of her extremities at areas of bedbug bites and with some shortness of breath for 2-3 days. She has multiple bites on her lower extremities, photocopied below with a history of bedbugs in the surrounding area has asymmetrically acutely worsened to become erythematous. Select cellulitis superimposed on bites. B/l cellulitis sec to bug bite/anxiety driven skin scratching - 7 days of worsening bilateral lower leg redness, pain, swelling - Patient given initial dose of cefepime in ED, wound care to be consulted for wounds on legs, as well as right hip, s/[place] [facility] [place] - Blood cultures collected on 07/09 and have NGTD. MRSA swab negative. - contact precaution for bedbug/personal belonging bagged/observed. - Transitioned from IV abx to oral Augmentin 875 BID for 5 days at time of discharge. - Should f/u with PCP and wound care in 1-2 weeks. - outpatient wound clinic follow up was set up - consider further exploration of anxiety driven scratching Acute on chronic HFpEF -Did receive a dose of 40 IV Lasix in the ED for mild pulmonary edema seen on CXR -Continued home Lasix's. Pneumonia - Patient complaining of several days of shortness of breath and cough, without leukocytosis but CXR does show developing right lobe focal pneumonia. - Augmentin will cover for both cellulitis and pneumonia. Hyponatremia - Sodium 125 on 07/08, serum and urine osm collected. urine osmo was 169, Urine sodium was 31. - No further changes needed at this time. A fib - Rate controlled A. fib here, continue Eliquis, digoxin, metoprolol. - Did receive IV digoxin on 07/08 for subtherapeutic level, 0.7 Anemia -Patient has chronically low hgb with a baseline around 7-9. She is currently at baseline at 9.6 on 07/10. -MCV was 57.2 and a normal ferritin of 222.2 suggest some underlying thalassemia. -Beta-globin labs pending. GERD, RLS, anxiety, hypothyroidism, hypertension -Continue home medications. Right leg pain -chronic off and on at the R LE and leg ulcers -prn oxycodone helping. Total Time Total Time Spent Total Time Spent (In Minutes): 20 Discharge Plan Discharge Items Patient Disposition: Home - Self-Care Reason For Visit: b/l cellulitis Discharge Diagnosis: bilateral lower leg cellulitis Condition on Discharge: Fair Activity: Per Instructions section Non-emergency contact: Primary Care Provider Call non-emergency contact if: you have any medication questions, your pain is worsening, your temperature is above 101.5, your wound has increased redness, your wound has increased drainage and your wound pain has increased Follow-up/Referrals: Mendoza Murrieta DO [Primary Care Provider] - 07/20/22 4:00 pm Diet: Heart Healthy Addtl Attending Provider Instructions: You were admitted to the hospital for cellulitis of both of your legs. You were treated with antibiotics and wound care. A discharge summary will be sent to your primary care physician to ensure continuity of care. Please bring this discharge summary with you to your next office appointment so that your provider can review it at that time. Follow-up appointments: * Make a follow-up appointment with your PCP within the next week. It is very important that you follow up with them shortly after discharge from the hospital. * We have requested a follow-up appointment with wound care. Please call their office if you do not hear from them. * Keep all your follow-up appointments as already scheduled. If you cannot make an appointment, notify your provider. Medications: Your medication list has been reviewed and reconciled upon discharge to ensure accuracy and continuity of care. An updated list of all your medications is included with your hospital discharge paperwork. Please review this list closely, and make note of any changes. * We sent a new medication called Augmentin to your pharmacy. Take Augmentin (875/125mg) 1 tab twice a day for 7 days. * We sent a new medication called oxycodone to your pharmacy. Take oxycodone (10mg) prn for pain. * If you have any issues filling these prescriptions, please call [phone] and ask to leave a message for Dr. Red. * Take your medications as instructed; do not skip a dose of your medicines. Make sure all of your doctors know every medicine you are taking (including [id number] medicines, vitamins, and supplements). Call your primary care provider before taking any new medicines (including over- the-counter medicines, vitamins, and supplements), because some of these may interact with your current medications, or may make your symptoms worse. Tell your primary care provider if you cannot afford your medications. CONTACT YOUR PRIMARY CARE PROVIDER if you experience any of the following: * Worsening of symptoms * Fever, chills, or fatigue * Difficulty following your treatment plan, or difficulty taking medications CALL 911 OR GO TO THE EMERGENCY DEPARTMENT if you experience any of the following: * Sudden, severe abdominal pain or nausea/vomiting * Severe chest pain, or chest pain that radiates (moves) to your jaw or arm * Sudden, severe shortness of breath or difficulty breathing Thank you for allowing us to participate in your care. Pending Studies at Discharge: No Stand-Alone Forms: My [facility], Smoking Cessation Medications and DC Order Prescriptions: New amoxicillin-pot clavulanate 875-125 mg Tablet 1 tab PO BIDM 7 Days Qty: 14 0RF Continued aspirin 81 mg tablet,delayed release (DR/EC) 81 mg PO QAM Qty: 30 1RF docusate sodium [Colace] 100 mg capsule 100 mg PO BID Qty: 60 1RF lorazepam 0.5 mg tablet 0.5 mg PO DAILY PRN (Reason: anxiety) Qty: 30 0RF hydroxyzine HCl 50 mg tablet 50 mg PO TID PRN (Reason: anxiety) Qty: 90 1RF digoxin 125 mcg (0.125 mg) tablet 125 mcg PO QPM Qty: 30 5RF Eliquis 5 mg tablet 5 mg PO BID Qty: 60 3RF diclofenac sodium 1 % gel 2 g topical QID PRN (Reason: pain, moderate) Qty: 100 2RF ropinirole 1 mg tablet 1 mg PO TID Qty: 90 3RF atorvastatin 10 mg tablet 10 mg PO HS Qty: 30 5RF levothyroxine 75 mcg tablet 75 mcg PO QAM Qty: 30 1RF omeprazole 20 mg tablet,delayed release (DR/EC) 20 mg PO DAILY Qty: 30 1RF duloxetine 30 mg capsule,delayed release(DR/EC) 30 mg PO DAILY polyethylene glycol 3350 [Miralax] 17 gram powder in packet 17 g PO BID Qty: 60 1RF furosemide [Lasix] 20 mg tablet 40 mg PO QAM PRN (Reason: edema) Qty: 30 5RF zolpidem 5 mg tablet 5 mg PO HS PRN (Reason: insomnia) Qty: 30 0RF folic acid 1 mg tablet 1 mg PO DAILY prenat.vits,gildardo,[id number] Tablet 1 tab PO DAILY senna 8.6 mg capsule 8.6 mg PO DAILY Label Comments: [facility] [place] 03/14/22 while on narcotics cyanocobalamin (vitamin B-12) 1,000 mcg capsule 1,000 mcg PO DAILY ferrous sulfate 325 mg (65 mg iron) tablet 325 mg PO DAILY acetaminophen [Tylenol Extra Strength] 500 mg Tablet 1,000 mg PO Q8 Qty: 60 0RF metoprolol succinate 100 mg tablet extended release 24 hr 100 mg PO BID buspirone 10 mg tablet 10 mg PO TID ropinirole 0.25 mg tablet 0.25 mg PO HS No Action tizanidine 4 mg capsule 4 mg PO Q6H PRN (Reason: muscle spasticity) Qty: 30 1RF oxycodone 5 mg tablet 10 mg PO Q6H PRN (Reason: moderate-severe pain) Qty: 20 0RF Discharge Orders: Discharge Order (Routine); Ordered 07/12/22 Ordered By: Gregor Red Admission Data Admit Date/Time: 07/08/22 16:44 Attending Provider: Magdalene William Admit Provider: Misha Cristobal Primary Care Provider: Mendoza Murrieta Other Providers: Misha Cristobal Other Interventions: Discharge Summary Assessment (RN) Last Done: 07/12/22 14:47 Supervising Physician Co-Signing Physician Notes Resident Physician Supervision Note: I independently interviewed and examined the patient and verified the felton history and physical, reviewed labs and image studies and agree with resident findings and care plan. Resident Activity Tracking Resident Involvement: Resident Care Provided Care Provided: Adult Hospital Medicine
[2022-07-12] MEDS: DIGOXIN 0.125 MG TAB PO SCH (15:04)
[2022-07-12] MEDS: LORazepam 0.5 MG TAB PO PRN (15:04)
== END 2022-07-12 18:18 | disposition home or self-care (01) | DRG 602 ==
LOC: ED 13:58 → SUATTDRO 16:44 → EDINP 16:44 → 2W 21:08

== ENCOUNTER 2023-03-02 02:49 | Inpatient (IN) ==
[2023-03-02] MEDS ORDERED: SODIUM CHLORIDE 0.9% 500 ML IV ONE ×2 (03:01→04:28)
[2023-03-02] MEDS ORDERED: LORazepam 2 MG/1 ML VIAL IV STA (03:01)
--- NOTE | 2023-03-02 03:04 | Emergency Department Note ---
Impression & Plan Bilateral leg pain, Anxiety, Acute hyponatremia, Atrial fibrillation with rapid ventricular response ED Provider Note Name: LAURIE HAMILTON Age: 62 Sex: F Arrives Via: Ambulance Informant: Patient ED Provider: Taras Sinclair MD Chief Complaint: Leg pain Impression: As per impressions above Medical Decision Makin-year-old female with quite complex past medical history arrives for evaluation of bilateral leg pain. She is primarily focused on her severe leg pain and her anxiety. She is shaking her legs violently due to the amount of pain she is having. She was given Ativan to help calm down without much effect thus given some IV morphine with much improvement in her pain. Patient did get quite sleepy though and blood pressure dropped some. She also noted to be in A- fib RVR. She is given some IV Lopressor as well as a saline bolus. Blood pressure is a bit on the low side though MAP is greater than 60. She is afebrile with only a mild white blood cell count. Not convinced there is any clear evidence of infection or source at this point but will discuss further with hospitalist and they plan to work this up further. Heart rate fortunately is improved significantly with some IV Lopressor and I do suspect she may have been taking her meds as prescribed given her digoxin has been on the low side as well. Patient herself is feeling much better she has no further complaints and she is in no distress. She is agreeable to hospitalization. Unclear if restless leg issues were due to missing medications or possibly the acute hyponatremia. At this point will need hospitalization for further work-up and evaluation. Prior Medical Record and Triage/Nursing Notes reviewed by Me Extensive chart review including recent hospitalization records and discharge summaries. Differentials:Infection, dehydration, metabolic abnormality, hypo/hyperglycemia, electrolyte disturbance, anemia, hypoxia, cardiac sources, intracerebral event, toxicologic, neurologic, as well as other pathologies. Vital Signs: reviewed and remarkable for tachycardic regular on arrival Interventions: Ativan p.o., morphine IV, normal saline bolus, Lopressor 5 mg IV Labs:Reviewed and remarkable for mildly elevated white blood cell count, low sodium EKG:Per My Interpretation: Indication Tachycardia: Afib RVR 131 bpm, qtc 410. No Ectopy. No Ischemia. Compared to EKG 02/23/23, no significant changes. Cardiac/Tele Monitoring: Cardiac Monitoring: An Order was placed for continuous cardiac monitoring. The monitor shows a rate of 130 with a afib rvr rhythm. Consults:Dr Arambula Plan: Disposition:Hospitalization. Condition: Fair History of Present Illness:62-year-old female arrives for evaluation of bilateral leg pain. Patient states that throughout the afternoon worsening leg pain. Pain is in both legs. Is associated with severe anxiety. She states she cannot get comfortable. Nothing makes pain better or worse. Past Medical History:See Below Home Medications:See Below Allergies:See Below Vitals:Blood Pressure: 134/78, Pulse 120, RR 22, T 36.8C, O2 95% on RA Physical Exam: GENERAL: Patient is severely upset appearing and in moderate distress. RESPIRATORY: No dyspnea. Clear to auscultation and equal bilaterally. No wheeze, no rhonchi. CARDIOVASCULAR: Tachycardic and irregular no murmur appreciated EXTREMITIES: bilateral shaking legs with good pulses warm feet and no change in sensation NEUROLOGIC: Alert and oriented, no acute motor or sensory deficits, no focal weakness, cranial nerves grossly intact. SKIN: No rash, no jaundice, no diaphoresis. PSYCH: Appropriate GCS: 15 ED Course: Times/Reassessments: Patient vastly improved after medications. Breathing comf ortably no distress though blood pressure is a bit on the low side. We will get hospitalist input as wished to avoid overloading right off the bat she is stable otherwise. Taras Sinclair MD Past Med/Surg History Medical History Acute hyponatremia Anemia Anxiety Arthroplasty of knee (Unknown) "bilateral " Atrial fibrillation follows with [facility] Cardiology (Donna Osborne PA-C) dx a year ago. no cardioversions in the past. Cellulitis hx Chronic heart failure with preserved ejection fraction (HFpEF) Constipation GERD (gastroesophageal reflux disease) occasional History of COVID-19 July 2020 treated at a hospital in [place] for several days. 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 unsure of cause. Pneumonia hx - "years ago" Poor historian RLS (restless legs syndrome) Sleep apnea hx -- since weightloss and gastric bypass surgery no problems with PORTILLO. Weight loss, unintentional Surgical History H/O gastric bypass History of bilateral hip replacements History of bilateral knee arthroplasty History of section History of cholecystectomy History of colonoscopy History of esophagogastroduodenoscopy (EGD) S/P revision of total hip Status post hip surgery R HIP REPLACEMENT REMOVED DUE TO INFX Family History Father Colorectal cancer Mother Diabetes Other FHx: throat cancer No family history of adverse response to anesthesia Denies family history of Ovarian cancer Prostate cancer Myocardial infarction Breast cancer Social History Smoking Status: Never smoker Second Hand Exposure: No; Do You Dip or Chew Tobacco: No; Hx Alcohol Use: Yes Hx Substance Use: No Preferred Language: Azeri Communication Ability: Effective Media Marketing Specialist Required: No Beliefs That Will Affect Care: None marital status: Current Living Situation: Alone Current Living Situation Comment: APARTMENT IN [place], PER PATIENT How many Children do You have: 3 Other Information That Helps Us Care for You: No Feels Safe at Home: Yes Safety Concerns: Feels Safe At This Time Assistive Devices: Glasses, Walker and Wheelchair Allergies Allergies Allergy/AdvReac Type Severity Reaction Status Date / Time hylan G-F 20 Allergy Severe CAN'T Verified 03/02/23 03:03 REMEMBER mushroom Allergy Intermediate RASH Verified 03/02/23 03:03 Home Meds Home Medications Medication Instructions Recorded Confirmed acetaminophen 500 mg tablet 1,000 mg PO Q8 PRN Pain 10/11/22 03/02/23 (Tylenol Extra Strength) cholecalciferol (vitamin D3) 50 50 mcg PO QAM 10/11/22 03/02/23 mcg (2,000 unit) capsule (Vitamin D3) cyanocobalamin (vitamin B-12) 1,000 mcg PO QAM 10/11/22 03/02/23 1,000 mcg capsule [id number] acid 0.4 1 tab PO QAM 10/11/22 03/02/23 mg-lycopene 300 mcg-lutein 250 mcg tablet (Centrum Silver) omeprazole 20 mg tablet,delayed 20 mg PO DAILY 10/11/22 03/02/23 release polyethylene glycol 3350 17 gram 17 g PO BID PRN Constipation 10/11/22 03/02/23 oral powder packet (Miralax) duloxetine 30 mg capsule,delayed 30 mg PO HS 12/24/22 03/02/23 release doxepin 100 mg capsule 100 mg PO HS 01/23/23 03/02/23 Previous Rx's Medication Instructions Recorded atorvastatin 10 mg tablet 10 mg PO HS #90 tabs 10/24/22 buspirone 10 mg tablet 10 mg PO TID #270 tabs 10/24/22 digoxin 125 mcg (0.125 mg) tablet 125 mcg PO QPM #90 tabs 10/24/22 metoprolol succinate 100 mg 100 mg PO BID #180 tabs 10/24/22 tablet,extended release 24 hr ropinirole 1 mg tablet 1 mg PO TID #270 tabs 10/24/22 apixaban 5 mg tablet (Eliquis) 5 mg PO BID #180 tabs 10/30/22 Wheelchair (Powered) (Power #1 ea 11/13/22 Wheelchair) furosemide 20 mg tablet (Lasix) 40 mg PO QAM PRN edema #180 tabs 11/16/22 duloxetine 60 mg capsule,delayed 60 mg PO DAILY #90 caps 11/22/22 release ropinirole 0.25 mg tablet 0.25 mg PO HS #90 tabs 11/22/22 cyclobenzaprine 10 mg tablet 10 mg PO TID PRN muscle spasm #30 02/27/23 tabs diclofenac sodium 1 % topical gel 4 g topical QID PRN rash #100 grams 02/27/23 (Arthritis Pain (diclofenac)) hydroxyzine HCl 50 mg tablet 50 - 100 mg PO TID PRN anxiety 02/27/23 #180 tabs levothyroxine 75 mcg tablet 75 mcg PO DAILY #90 tabs 02/27/23 silver sulfadiazine 1 % topical 1 applic topical BID #20 grams 02/27/23 cream Results & Data (ED) Vital Signs Vital Signs - 24 hr 03/02/23 02:54 03/02/23 03:15 03/02/23 04:26 Temperature 36.8 C Temperature Source Oral Pulse Rate 120 H 130 H Pulse Rate [Apical] Pulse Strength [Apical] Respiratory Rate 22 Respiratory Effort / Characteristics Non-Labored Spontaneous Respiratory Depth Normal Respiratory Pattern Regular Blood Pressure 134/78 Blood Pressure [Right Arm] Blood Pressure Mean 96 Blood Pressure Mean [Right Arm] Blood Pressure Position [Right Arm] Pulse Oximetry 95 96 Oxygen Delivery Method Room Air Room Air Oxygen Flow Rate Sepsis Recent Fever Within 48 Hours No Sepsis New/Unexplained Change in Mental Status N/A Sepsis Action Taken by Nursing No Action Required Oxygen Flow Rate - Titration Pulse Oximetry Post Tiitration 03/02/23 03:03 03/02/23 04:21 03/02/23 05:00 Temperature Temperature Source Pulse Rate 113 H Pulse Rate [Apical] 128 H Pulse Strength [Apical] Normal Respiratory Rate 20 Respiratory Effort / Characteristics Non-Labored Respiratory Depth Normal Respiratory Pattern Regular Blood Pressure Blood Pressure [Right Arm] 91/58 L Blood Pressure Mean Blood Pressure Mean [Right Arm] 69 Blood Pressure Position [Right Arm] Lying Pulse Oximetry 95 89 L Oxygen Delivery Method Room Air Nasal Cannula Oxygen Flow Rate 0 Sepsis Recent Fever Within 48 Hours Sepsis New/Unexplained Change in Mental Status Sepsis Action Taken by Nursing Oxygen Flow Rate - Titration 2 Pulse Oximetry Post Tiitration 95 03/02/23 05:09 03/02/23 04:45 Temperature Temperature Source Pulse Rate 91 H Pulse Rate [Apical] 99 H Pulse Strength [Apical] Normal Respiratory Rate 20 Respiratory Effort / Characteristics Non-Labored Respiratory Depth Normal Respiratory Pattern Regular Blood Pressure Blood Pressure [Right Arm] 92/65 L Blood Pressure Mean Blood Pressure Mean [Right Arm] 74 Blood Pressure Position [Right Arm] Lying Pulse Oximetry 92 Oxygen Delivery Method Room Air Oxygen Flow Rate Sepsis Recent Fever Within 48 Hours Sepsis New/Unexplained Change in Mental Status Sepsis Action Taken by Nursing Oxygen Flow Rate - Titration Pulse Oximetry Post Tiitration Laboratory Data 03/02/23 04:06 03/02/23 04:06 Lab Results 03/02/23 03/02/23 03/02/23 Range/Units 04:06 04:06 04:06 WBC 14.49 H (4.8-10.8) K/ul RBC 4.54 (4.20-5.40) M/uL Hgb 8.1 L (12.0-16.0) g/dl Hct 24.7 L (37.0-47.0) % MCV 54.4 L (80.0-100.0) fL MCH 17.8 L (25.0-34.0) pg MCHC 32.8 (32.0-36.0) g/dL RDW Std Deviation 29.2 L (36.4-46.3) fL RDW Coeff of Fredrick 15.4 H (11.5-14.5) % Plt Count 605 H (130-400) K/uL MPV 9.2 L (9.4-12.4) fL Immature Gran % (Auto) 0.6 % Neut % (Auto) 78.2 % Lymph % (Auto) 10.4 % [place] % (Auto) 9.5 % Eos % (Auto) 1.1 % Baso % (Auto) 0.2 % Neut # (Auto) 11.33 H (1.40-6.50) K/uL Lymph # (Auto) 1.51 (1.20-3.40) K/uL [place] # (Auto) 1.37 H (0.11-0.59) K/uL Eos # (Auto) 0.16 (0.00-0.50) K/uL Baso # (Auto) 0.03 (0.00-0.20) K/uL Immature Gran # (Auto) 0.09 (0.01-0.20) K/uL Polychromasia 1+ Hypochromasia Present Microcytosis Present Target Cells 2+ Echinocytes 1+ Rouleaux 1+ ESR > 130 H (0-30) mm/hr Sodium 125 L (136-145) mmol/L Potassium 4.4 (3.5-5.1) mmol/L Chloride 92 L (98-107) mmol/L Carbon Dioxide 23 (21-32) mmol/L Anion Gap 10 (3-11) BUN 18 (6-23) mg/dl Creatinine 0.92 (0.6-1.2) mg/dl Est Cr Clr Drug Dosing 69.7 ml/min Est GFR ( Amer) 78.4 ml/min Est GFR (Non-Af Amer) 67.7 ml/min BUN/Creatinine Ratio 19.6 (10-20) Glucose 103 H (70-99(Fasting)) mg/dl Calcium 8.8 (8.6-10.3) mg/dl Magnesium 1.9 (1.7-2.4) mg/dl Total Creatine Kinase 56 (26-192) U/L Administered Medications Acetaminophen (Acetaminophen 325 Mg Tab) 650 mg PO Q4H PRN PRN Reason: pain or fever Stop: 04/01/23 19:46 Last Admin: 03/02/23 20:27 Dose: 650 mg Documented By: AURY Apixaban (Apixaban 5 Mg Tablet) 5 mg PO BID RAMIREZ Stop: 04/01/23 08:59 Last Admin: 03/02/23 20:08 Dose: 5 mg Documented By: Admin: 03/02/23 10:34 Dose: 5 mg Documented By: EMILIANO Atorvastatin Calcium (Atorvastatin 10 Mg Tab) 10 mg PO HS RAMIREZ Stop: 04/01/23 20:59 Last Admin: 03/02/23 20:09 Dose: 10 mg Documented By: AURY Buspirone HCl (Buspirone 5 Mg Tab) 10 mg PO TID RAMIREZ Stop: 04/01/23 08:59 Last Admin: 03/02/23 20:02 Dose: 10 mg Documented By: Admin: 03/02/23 14:28 Dose: 10 mg Documented By: Admin: 03/02/23 10:34 Dose: 10 mg Documented By: EMILIANO Digoxin (Digoxin 0.125 Mg Tab) 0.125 mg PO QPM RAMIREZ Stop: 04/01/23 20:59 Last Admin: 03/02/23 20:07 Dose: 0.125 mg Documented By: AURY Doxepin HCl (Doxepin Hcl 50 Mg Capsule) 100 mg PO HS [facility] Stop: 04/01/23 20:59 Last Admin: 03/02/23 20:08 Dose: 100 mg Documented By: AURY Duloxetine HCl (Duloxetine Hcl 30 Mg Cap) 30 mg PO HS RAMIREZ Stop: 04/01/23 20:59 Last Admin: 03/02/23 20:08 Dose: 30 mg Documented By: AURY Duloxetine HCl (Duloxetine Hcl 60 Mg Cap) 60 mg PO DAILY RAMIREZ Stop: 04/01/23 08:59 Last Admin: 03/02/23 10:35 Dose: 60 mg Documented By: EMILIANO Piperacillin Sod/Tazobactam (Sod 4.5 gm/ Dextrose) 120 mls @ 30 mls/hr IV Q8H RAMIREZ; Protocol Stop: 03/04/23 15:59 Last Infusion: 03/02/23 20:41 Dose: 0 mls/hr Documented By: Admin: 03/02/23 16:01 Dose: 30 mls/hr Documented By: EMILIANO Levothyroxine Sodium (Levothyroxine Sodium 75 Mcg Tablet) 75 mcg PO DAILYBB RAMIREZ Stop: 04/01/23 08:59 Last Admin: 03/02/23 10:34 Dose: 75 mcg Documented By: EMILIANO Metoprolol Succinate (Metoprolol Succ 50mg Ext Rel Tab) 100 mg PO BID RAMIREZ Stop: 04/01/23 08:59 Last Admin: 03/02/23 20:02 Dose: 100 mg Documented By: Admin: 03/02/23 10:34 Dose: 100 mg Documented By: EMILIANO Pantoprazole Sodium (Pantoprazole 40 Mg Tab) 40 mg PO DAILY RAMIREZ Stop: 04/01/23 08:59 Last Admin: 03/02/23 10:34 Dose: 40 mg Documented By: EMILIANO Ropinirole HCl (Ropinirole Hcl 1 Mg Tablet) 1 mg PO TID RAMIREZ Stop: 04/01/23 08:59 Last Admin: 03/02/23 20:05 Dose: 1 mg Documented By: Admin: 03/02/23 14:28 Dose: 1 mg Documented By: Admin: 03/02/23 10:34 Dose: 1 mg Documented By: EMILIANO Ropinirole HCl (Ropinirole Hcl 0.25 Mg Tablet) 0.25 mg PO HS RAMIREZ Stop: 04/01/23 20:59 Last Admin: 03/02/23 20:06 Dose: 0.25 mg Documented By: AURY Discontinued Medications Sodium Chloride (Nss) 500 mls @ 999 mls/hr IV .Q31M ONE Stop: 03/02/23 03:31 Last Infusion: 03/02/23 04:58 Dose: 0 mls/hr Documented By: Admin: 03/02/23 04:23 Dose: 999 mls/hr Documented By: ATIF Sodium Chloride (Nss 1000ml) 500 mls @ 999 mls/hr IV .Q31M ONE Stop: 03/02/23 04:58 Last Infusion: 03/02/23 05:44 Dose: 0 mls/hr Documented By: Admin: 03/02/23 05:00 Dose: 999 mls/hr Documented By: ATIF Piperacillin Sod/Tazobactam (Sod 4.5 gm/ Dextrose) 120 mls @ 240 mls/hr IV NOW STA; Protocol Stop: 03/02/23 09:49 Last Infusion: 03/02/23 11:32 Dose: 0 mls/hr Documented By: Admin: 03/02/23 10:35 Dose: 240 mls/hr Documented By: EMILIANO Lorazepam (Lorazepam 2 Mg/1 Ml Vial) 1 mg IV NOW STA Stop: 03/02/23 03:02 Last Admin: 03/02/23 03:55 Dose: Not Given Documented By: ATIF Lorazepam (Lorazepam 1 Mg Tab) 1 mg PO NOW STA Stop: 03/02/23 03:11 Last Admin: 03/02/23 03:12 Dose: 1 mg Documented By: ATIF Metoprolol Tartrate (Metoprolol Tartrate 1 Mg/Ml Vial) 5 mg IV NOW STA Stop: 03/02/23 04:11 Last Admin: 03/02/23 04:26 Dose: 5 mg Documented By: ATIF Morphine Sulfate (Morphine Sulfate 10 Mg/Ml Carp/Vial) 6 mg IM NOW STA Stop: 03/02/23 03:54 Last Admin: 03/02/23 04:23 Dose: Not Given Documented By: ATIF Morphine Sulfate (Morphine Sulfate 10 Mg/Ml Carp/Vial) 6 mg IV NOW STA Stop: 03/02/23 04:11 Last Admin: 03/02/23 04:22 Dose: 6 mg Documented By: ATIF Morphine Sulfate (Morphine Sulfate 2 Mg/Ml Carp) 1 mg IV NOW STA Stop: 03/02/23 15:52 Last Admin: 03/02/23 16:01 Dose: 1 mg Documented By: EMILIANO Discharge Plan Visit Data Chief Complaint: Anxiety Stated Complaint: ANXIETY ED Provider: Taras Sinclair Discharge Problem: Bilateral leg pain, Anxiety, Acute hyponatremia, Atrial fibrillation with rapid ventricular response Patient Disposition: Admitted As Inpatient Discharge Instructions Interventions: ED Discharge Assessment Last Done: 03/02/23 09:33
[2023-03-02] MEDS ORDERED: LORazepam 1 MG TAB PO STA (03:10)
[2023-03-02] MEDS ORDERED: MoRPHine SULFATE 10 MG/ML CARP/VIAL IM STA (03:53)
[2023-03-02] MEDS ORDERED: METOPROLOL TARTRATE 1 MG/ML VIAL IV STA (04:10)
[2023-03-02] MEDS ORDERED: MoRPHine SULFATE 10 MG/ML CARP/VIAL IV STA (04:10)
[2023-03-02 04:47] LABS: Basophils # (auto) 0.03 K/uL (0.00-0.20); Basophils % (auto) 0.2 %; Eosinophils # (auto) 0.16 K/uL (0.00-0.50); Eosinophils % (auto) 1.1 %; Hematocrit (blood only) 24.7 % (37.0-47.0); Hemoglobin 8.1 g/dl (12.0-16.0); Immature Granulocytes # (auto) 0.09 K/uL (0.01-0.20); Immature Granulocytes % (auto) 0.6 %; Lymphocytes # (auto) 1.51 K/uL (1.20-3.40); Lymphocytes % (auto) 10.4 %; Mean Corpuscular Hemoglobin 17.8 pg (25.0-34.0); Mean Corpuscular Hgb Conc 32.8 g/dL (32.0-36.0); Mean Corpuscular Volume 54.4 fL (80.0-100.0); Monocytes # (auto) 1.37 K/uL (0.11-0.59); Monocytes % (auto) 9.5 %; Neutrophils # (auto) 11.33 K/uL (1.40-6.50); Neutrophils % (auto) 78.2 %; RDW Coefficient of Variation 15.4 % (11.5-14.5); RDW Standard Deviation 29.2 fL (36.4-46.3); Red Blood Count 4.54 M/uL (4.20-5.40); White Blood Count 14.49 K/ul (4.8-10.8)
[2023-03-02 05:00] LABS: BUN Creatinine Ratio 19.6 (10-20); Calcium 8.8 mg/dl (8.6-10.3); Creatinine Clr Calc Pharmacy 69.7 ml/min; Est GFR (African American) 78.4 ml/min; Est GFR (Non-African American) 67.7 ml/min; Magnesium 1.9 mg/dl (1.7-2.4); Potassium 4.4 mmol/L (3.5-5.1)
[2023-03-02 05:10] LABS: Echinocytes 1+; Hypochromasia Present; Mean Platelet Volume 9.2 fL (9.4-12.4); Microcytosis Present; Platelet Count 605 K/uL (130-400); Polychromasia 1+; Rouleaux 1+; Target Cells 2+
--- NOTE | 2023-03-02 05:47 | History & Physical Report ---
Date of Service March 02, 2023 Assessment & Plan (1) Right hip pain: Plan: 62 yo F with PMH of HTN, diabetes, obesity s/p gastric bypass, CHF, Afib on Eliquis, migraines, iron deficiency anemia, GERD, hypothyroidism, RLS, chronic pain, adjustment disorder, and anxiety here for leg pain found to have hyponatremia and afib RVR. Right hip pain -given history of hip replacement infection, will order CT bony pelvis -WBC 14.49 -treated with morphine in ED -admit to PCU -ordered lactate -ordered Bcx -ordered empiric zosyn -trend cbc Bacteuria -noted on 02/23 -repeat urine culture Afib RVR -treated with metoprolol in ED -continue digoxin -digoxin level pending -continue metoprolol -continue eliquis Hypotension - -s/p ativan, morphine, metoprolol -also noted concern for infection -received NSS 1L in ED -continue to monitor Hyponatremia -Na 125 -received NSS 1000cc in ED -continue to monitor Anxiety -treated with ativan in ED -continue duloxetine -continue buspirone -continue doxepin Code status -unable to obtain on admit due to mental status -listed as full code based on prior admissions CHF, HTN, HLD -caution with fluids -continue atorvastatin -continue metoprolol DM2 -previously patient denied this condition RLS -continue ropinirole Hypothyroidism -continue levothyroxine GERD -continue omeprazole FENa: heart healthy carb consistent Code Status: Full DVT PPX: eliquis PT/OT: ordered Dispo: PCU Nhung Marinelli D.O. PGY 3, FCM (2) Anxiety: (3) HTN (hypertension): (4) Right heart failure, unspecified: (5) Hypothyroidism: (6) Diabetes: (7) Atrial fibrillation, chronic: (8) Chronic heart failure with preserved ejection fraction (HFpEF): (9) GERD (gastroesophageal reflux disease): (10) RLS (restless legs syndrome): (11) Migraines: (12) H/O gastric bypass: History of Present Illness Chief Complaint: b/l leg pain Primary Care Provider: Cyndy Don MD 62 yo F with PMH of HTN, diabetes, obesity s/p gastric bypass, CHF, Afib on Eliquis, migraines, iron deficiency anemia, GERD, hypothyroidism, RLS, chronic pain, adjustment disorder, and anxiety here for leg pain found to have hyponatremia and afib RVR. Patient was obtunded on exam, was able to state her right hip hurt worsened in the past day, did not have a POA, quickly fell back asleep. Majority of history taken from ED record. Per ED, patient came to ED for b/l leg pain that is associated with her anxiety felt very anxious. She has a history of right hip arthroplasty with hardware loosening, history of joint infection treated with dapto, and was transferred to [facility] 01/11 for removal of hardware. Was recently seen by PCP 02/27 for right hip pain CT right hip ordered not done yet. Recent ED visits noted positive urine culture Enterobacter Cloacae resistant to ceftriaxone untreated. In ED patient received ativan 2mg morphine 12mg for anxiety and pain, became obtunded after. Noted ongoing afib RVR treated with metoprolol 5mg IV, noted hypotension 92/65 likely from prior medications treated with NSS 1000cc total. Also noted hyponatremia. Patient will be listed as full code based on prior admission records. Allergies Allergy/AdvReac Type Severity Reaction Status Date / Time cely G-F 20 Allergy Severe CAN'T Verified 03/02/23 03:03 REMEMBER mushroom Allergy Intermediate RASH Verified 03/02/23 03:03 Home Medications Medication Instructions Recorded Confirmed Type acetaminophen 500 mg tablet 1,000 mg PO Q8 PRN Pain 10/11/22 03/02/23 History (Tylenol Extra Strength) cholecalciferol (vitamin D3) 50 50 mcg PO QAM 10/11/22 03/02/23 History mcg (2,000 unit) capsule (Vitamin D3) cyanocobalamin (vitamin B-12) 1,000 mcg PO QAM 10/11/22 03/02/23 History 1,000 mcg capsule sfvlzcqk-wde-vjapl acid 0.4 1 tab PO QAM 10/11/22 03/02/23 History mg-lycopene 300 mcg-lutein 250 mcg tablet (Centrum Silver) omeprazole 20 mg tablet,delayed 20 mg PO DAILY 10/11/22 03/02/23 History release polyethylene glycol 3350 17 gram 17 g PO BID PRN Constipation 10/11/22 03/02/23 History oral powder packet (Miralax) atorvastatin 10 mg tablet 10 mg PO HS #90 tabs 10/24/22 03/02/23 Rx buspirone 10 mg tablet 10 mg PO TID #270 tabs 10/24/22 03/02/23 Rx digoxin 125 mcg (0.125 mg) tablet 125 mcg PO QPM #90 tabs 10/24/22 03/02/23 Rx metoprolol succinate 100 mg 100 mg PO BID #180 tabs 10/24/22 03/02/23 Rx tablet,extended release 24 hr ropinirole 1 mg tablet 1 mg PO TID #270 tabs 10/24/22 03/02/23 Rx apixaban 5 mg tablet (Eliquis) 5 mg PO BID #180 tabs 10/30/22 03/02/23 Rx Wheelchair (Powered) (Power #1 ea 11/13/22 02/27/23 Rx Wheelchair) furosemide 20 mg tablet (Lasix) 40 mg PO QAM PRN edema #180 tabs 11/16/22 03/02/23 Rx duloxetine 60 mg capsule,delayed 60 mg PO DAILY #90 caps 11/22/22 03/02/23 Rx release ropinirole 0.25 mg tablet 0.25 mg PO HS #90 tabs 11/22/22 03/02/23 Rx duloxetine 30 mg capsule,delayed 30 mg PO HS 12/24/22 03/02/23 History release doxepin 100 mg capsule 100 mg PO HS 01/23/23 03/02/23 History cyclobenzaprine 10 mg tablet 10 mg PO TID PRN muscle spasm #30 02/27/23 03/02/23 Rx tabs diclofenac sodium 1 % topical gel 4 g topical QID PRN rash #100 grams 02/27/23 03/02/23 Rx (Arthritis Pain (diclofenac)) hydroxyzine HCl 50 mg tablet 50 - 100 mg PO TID PRN anxiety 02/27/23 03/02/23 Rx #180 tabs levothyroxine 75 mcg tablet 75 mcg PO DAILY #90 tabs 02/27/23 03/02/23 Rx silver sulfadiazine 1 % topical 1 applic topical BID #20 grams 02/27/23 03/02/23 Rx cream Past Med/Surg History Medical History Acute hyponatremia Anemia Anxiety Arthroplasty of knee (Unknown) "bilateral " Atrial fibrillation follows with [facility] Cardiology (Donna Osborne PA-C) dx a year ago. no cardioversions in the past. Cellulitis hx Chronic heart failure with preserved ejection fraction (HFpEF) Constipation GERD (gastroesophageal reflux disease) occasional History of COVID-19 July 2020 treated at a hospital in [place] for several days. 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 unsure of cause. Pneumonia hx - "years ago" Poor historian RLS (restless legs syndrome) Sleep apnea hx -- since weightloss and gastric bypass surgery no problems with PORTILLO. Weight loss, unintentional Surgical History H/O gastric bypass History of bilateral hip replacements History of bilateral knee arthroplasty History of section History of cholecystectomy History of colonoscopy History of esophagogastroduodenoscopy (EGD) S/P revision of total hip Status post hip surgery R HIP REPLACEMENT REMOVED DUE TO INFX Family History Father Colorectal cancer Mother Diabetes Other FHx: throat cancer No family history of adverse response to anesthesia Denies family history of Ovarian cancer Prostate cancer Myocardial infarction Breast cancer Social History Smoking Status: Never smoker Second Hand Exposure: No; Do You Dip or Chew Tobacco: No; Hx Alcohol Use: Yes Hx Substance Use: No Preferred Language: Romanian Communication Ability: Effective 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 Beliefs That Will Affect Care: None marital status: Current Living Situation: Alone Current Living Situation Comment: APARTMENT IN [facility], PER PATIENT How many Children do You have: 3 Other Information That Helps Us Care for You: No Feels Safe at Home: Yes Safety Concerns: Feels Safe At This Time Assistive Devices: Glasses, Walker and Wheelchair Review of Systems Review of Systems: Unobtainable due to reduced consciousness Physical Exam Constitutional: well developed, well nourished, cooperative and comfortable ENMT: external ear and nose normal, oropharynx normal Respiratory: normal respiratory effort Cardiovascular: Rate/Rhythm: regular rate and regular rhythm Gastrointestinal (Abdomen): Inspection/Auscultation: abdomen normal to inspection Skin: no rashes, warm and dry Results & Data Results & Data Vital Signs (Past 12 Hours) Vital Signs Temp Pulse Pulse Resp BP BP Pulse Ox 03/02/23 04:45 99 H 20 92/65 L 92 03/02/23 05:09 91 H 03/02/23 05:00 89 L 03/02/23 04:21 128 H 20 91/58 L 95 03/02/23 03:03 113 H 03/02/23 04:26 130 H 03/02/23 03:15 96 03/02/23 02:54 36.8 C 120 H 22 134/78 95 O2 Del Method O2 Flow Rate 03/02/23 04:45 Room Air 03/02/23 05:09 03/02/23 05:00 Nasal Cannula 0 03/02/23 04:21 Room Air 03/02/23 03:03 03/02/23 04:26 03/02/23 03:15 Room Air 03/02/23 02:54 Room Air Supervising Physician Co-Signing Physician Notes Attending addendum: I have physically seen this patient, have supervised the medical residents activities, and agree with the H&P unless as otherwise noted. Assessment and Plan: Right hip pain- history of right hip arthroplasty infection and replacement Complains of bilateral leg pain Order CT bony pelvis and hips Med telemetry admission due to borderline blood pressure Empirically placed on Zosyn to also cover urine Review culture and sensitivities. No history of MRSA Urinary tract infection- Infection from 02/23 with Klebsiella pneumoniae needs to be treated Zosyn 4.5 g IV every 8 hours A-fib with RVR history- Continue metoprolol, digoxin and Eliquis Digoxin level pending Relative hypotension- Reportedly had more normalized blood pressure prior to morphine dosing Status post 1 L normal saline in ED Admit to monitored bed Continue IV fluid rehydration Avoid narcotics Chronic hyponatremia- Sodium 125 on admission with range 134-126 IV fluids normal saline as noted repeat laboratories in a.m. Resident Activity Tracking Resident Involvement: Resident Care Provided Care Provided: Adult Hospital Medicine
--- NOTE | 2023-03-02 08:06 | CT Scan Report ---
CT bony pelvis wo con CLINICAL HISTORY: right hip pain b/l leg pain TECHNIQUE: Multidetector row helical CT of the pelvis was performed without intravenous contrast. Cor onal and sagittal reformations were obtained. Automated dose lowering techniques and/or adjustment ac cording to patient size were utilized for this examination. CT DOSE: 1777.41 mGy.cm Comparison: Comparison is made to CT right hip 01/07/2022 FINDINGS: Patient is status post right pelvic hardware removal, a few metallic fragments remain in the region. There is dislocation of the right hip, likely chronic. Heterotopic ossification is seen. A large soft tissue/fluid collection is seen in the region of the hip. Given these remodeling changes, sensitivit y for underlying osteomyelitis is low. Left hip total arthroplasty changes are seen. IMPRESSION: Interval right hardware removal with increased joint space fluid and a few metallic and bony fragment s, sterility cannot be assessed. Heterotopic ossification is seen. Sensitivity for osteomyelitis is l ow given underlying bone remodeling. ACT 112: Negative or not required by law. Electronically signed by: Taiwo Francois M.D. 03/02/2023 8:03 AM
[2023-03-02] MEDS ORDERED: POLYETHYLENE (MIRALAX) 17 GM PACK PO PRN (08:57)
[2023-03-02] MEDS ORDERED: PIPERACILLIN/TAZOBACTAM 4.5 GM in DEXTROSE 5% 100 ML IV STA (09:20)
[2023-03-02] MEDS: LEVOTHYROXINE SODIUM 75 MCG TABLET PO SCH (10:34)
[2023-03-02] MEDS: busPIRone 5 MG TAB PO SCH ×3 (10:34→20:02)
[2023-03-02] MEDS: rOPINIRole HCL 1 MG TABLET PO SCH ×3 (10:34→20:05)
[2023-03-02] MEDS: APIXABAN 5 MG TABLET PO SCH ×2 (10:34→20:08)
[2023-03-02] MEDS: METOPROLOL SUCC 50MG EXT REL TAB PO SCH ×2 (10:34→20:02)
[2023-03-02] MEDS: PANTOprazole 40 MG TAB PO SCH (10:34)
[2023-03-02] MEDS: DULoxetine HCL 60 MG CAP PO SCH (10:35)
[2023-03-02] MEDS ORDERED: MoRPHine SULFATE 2 MG/ML CARP IV STA (15:51)
--- NOTE | 2023-03-02 15:51 | Communication Note ---
Date of Service: March 02, 2023 Please refer to the H&P dictated by Nhung Marinelli for details of presentation on admission. In brief, the patient presented with right hip pain and anxiety. she was given large doses of Ativan and morphine which caused her to become obtunded. It was later noted that she was in rapid A-fib and had a low sodium level. This she was admitted to the hospital. A CT of the hip was done which showed a low possibility of osteomyelitis And some postoperative changes. We will consult orthopedics since the patient presented with right hip pain. Ordered ESR and CRP. Patient is no more obtunded. She is awake, alert, conversant. her atrial fibrillation is well controlled. Blood pressure stable. Patient does not appear to be anxious at this point. Urine culture results pending. Will follow sodium levels tomorrow
[2023-03-02] MEDS: PIPERACILLIN/TAZOBACTAM 4.5 GM in DEXTROSE 5% 100 ML IV SCH ×2 (16:01→23:35)
--- NOTE | 2023-03-02 18:57 | Orthopedic Consultation ---
Date of Service March 02, 2023 Assessment & Plan (1) Status post Girdlestone procedure: Kym underwent a Girdlestone procedure of her right hip a year ago. She essentially has no hardware in her hip and no hip joint. She is able to ambulate some on her right hip. The CT scan shows no evidence of abscess or infection around her right hip. I do not see any operative indications for her hip at this time. She is likely going to to continue to have some sort of pain in her right hip due to the Girdlestone procedure. There is nothing else to do operatively. She can follow-up with orthopedics on an as-needed basis. History of Present Illness Reason for Consultation: Right hip pain. Requesting Physician: . Attending Physician: Luke Arambula MD Kym is a 62-year-old female who underwent a Girdlestone procedure for her right hip a year ago in [place]. She has had a total of 5 surgeries to the right hip. There were persistent infections. A year ago, they removed all metal implants from her hip. She essentially has no hip joint. Only 50% of people are able to ambulate after Girdlestone procedure. She is able to minimally ambulate. She has been having some increased hip pain over the last few days. She came to the emergency room and was found to be hyponatremic. She has an elevated white count and sed rate. She was admitted to the hospitalist service. Orthopedics was consulted to evaluate the right hip pain.. Allergies Allergy/AdvReac Type Severity Reaction Status Date / Time hylan G-F 20 Allergy Severe CAN'T Verified 03/02/23 03:03 REMEMBER mushroom Allergy Intermediate RASH Verified 03/02/23 03:03 Home Medications Medication Instructions Recorded Confirmed Type acetaminophen 500 mg tablet 1,000 mg PO Q8 PRN Pain 10/11/22 03/02/23 History (Tylenol Extra Strength) cholecalciferol (vitamin D3) 50 50 mcg PO QAM 10/11/22 03/02/23 History mcg (2,000 unit) capsule (Vitamin D3) cyanocobalamin (vitamin B-12) 1,000 mcg PO QAM 10/11/22 03/02/23 History 1,000 mcg capsule aewfllxp-wnv-ibotx acid 0.4 1 tab PO QAM 10/11/22 03/02/23 History mg-lycopene 300 mcg-lutein 250 mcg tablet (Centrum Silver) omeprazole 20 mg tablet,delayed 20 mg PO DAILY 10/11/22 03/02/23 History release polyethylene glycol 3350 17 gram 17 g PO BID PRN Constipation 10/11/22 03/02/23 History oral powder packet (Miralax) atorvastatin 10 mg tablet 10 mg PO HS #90 tabs 10/24/22 03/02/23 Rx buspirone 10 mg tablet 10 mg PO TID #270 tabs 10/24/22 03/02/23 Rx digoxin 125 mcg (0.125 mg) tablet 125 mcg PO QPM #90 tabs 10/24/22 03/02/23 Rx metoprolol succinate 100 mg 100 mg PO BID #180 tabs 10/24/22 03/02/23 Rx tablet,extended release 24 hr ropinirole 1 mg tablet 1 mg PO TID #270 tabs 10/24/22 03/02/23 Rx apixaban 5 mg tablet (Eliquis) 5 mg PO BID #180 tabs 10/30/22 03/02/23 Rx Wheelchair (Powered) (Power #1 ea 11/13/22 02/27/23 Rx Wheelchair) furosemide 20 mg tablet (Lasix) 40 mg PO QAM PRN edema #180 tabs 11/16/22 03/02/23 Rx duloxetine 60 mg capsule,delayed 60 mg PO DAILY #90 caps 11/22/22 03/02/23 Rx release ropinirole 0.25 mg tablet 0.25 mg PO HS #90 tabs 11/22/22 03/02/23 Rx duloxetine 30 mg capsule,delayed 30 mg PO HS 12/24/22 03/02/23 History release doxepin 100 mg capsule 100 mg PO HS 01/23/23 03/02/23 History cyclobenzaprine 10 mg tablet 10 mg PO TID PRN muscle spasm #30 02/27/23 03/02/23 Rx tabs diclofenac sodium 1 % topical gel 4 g topical QID PRN rash #100 grams 02/27/23 03/02/23 Rx (Arthritis Pain (diclofenac)) hydroxyzine HCl 50 mg tablet 50 - 100 mg PO TID PRN anxiety 02/27/23 03/02/23 Rx #180 tabs levothyroxine 75 mcg tablet 75 mcg PO DAILY #90 tabs 02/27/23 03/02/23 Rx silver sulfadiazine 1 % topical 1 applic topical BID #20 grams 02/27/23 03/02/23 Rx cream Past Med/Surg History Medical History Acute hyponatremia Anemia Anxiety Arthroplasty of knee (Unknown) "bilateral " Atrial fibrillation follows with [facility] Cardiology (Donna Osborne PA-C) dx a year ago. no cardiove rsions in the past. Cellulitis hx Chronic heart failure with preserved ejection fraction (HFpEF) Constipation GERD (gastroesophageal reflux disease) occasional History of COVID-19 July 2020 treated at a hospital in [place] for several days. 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 unsure of cause. Pneumonia hx - "years ago" Poor historian RLS (restless legs syndrome) Sleep apnea hx -- since weightloss and gastric bypass surgery no problems with PORTILLO. Weight loss, unintentional Surgical History H/O gastric bypass History of bilateral hip replacements History of bilateral knee arthroplasty History of section History of cholecystectomy History of colonoscopy History of esophagogastroduodenoscopy (EGD) S/P revision of total hip Status post hip surgery R HIP REPLACEMENT REMOVED DUE TO INFX Family History Father Colorectal cancer Mother Diabetes Other FHx: throat cancer No family history of adverse response to anesthesia Denies family history of Ovarian cancer Prostate cancer Myocardial infarction Breast cancer Social History Smoking Status: Never smoker Second Hand Exposure: No; Do You Dip or Chew Tobacco: No; Hx Alcohol Use: Yes Hx Substance Use: No Preferred Language: Yakut Communication Ability: Effective 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 Physical Exam On physical examination of the right hip, she has minimal pain with range of motion at bedside when I am examining her. She does have an ulceration around the incision which is currently covered.. Constitutional WD/WN, vitals as above Eyes PERRL, conjunctivae normal, anicteric sclerae ENMT external ear and nose normal, oropharynx normal Neck trachea midline, no thyromegaly Respiratory normal respiratory effort, lungs clear to auscultation Cardiovascular RRR, no murmur, no edema Gastrointestinal (Abdomen) normal bowel sounds, soft, nontender, no hepatosplenomegaly Skin no rashes, warm and dry Psychiatric A+Ox3, euthymic affect Results & Data Results & Data Laboratory Results . Diagnostic Findings CT scan of the right hip shows absence of any hardware. There is absence of the hip joint. I do not see any signs of osteomyelitis or abscess formation. PG Care Time/CCT Total # of Minutes Spent Total Time Spent with Patient: Total time spent is greater than 50% in coordination of care (as documented) at patient's floor/unit and/or counseling patient: Coding Level of Care Code 95082 IN/OBS CONSULT LVL 4,60M Diagnoses Status post Girdlestone procedure Z98.890
--- NOTE | 2023-03-02 19:24 | Billing Data ---
Date of Service March 02, 2023 Coding Level of Care Code 33001 INT INP/OBS CARE
[2023-03-02] MEDS: rOPINIRole HCL 0.25 MG TABLET PO SCH (20:06)
[2023-03-02] MEDS: DIGOXIN 0.125 MG TAB PO SCH (20:07)
[2023-03-02] MEDS: DULoxetine HCL 30 MG CAP PO SCH (20:08)
[2023-03-02] MEDS: DOXEPIN HCL 50 MG CAPSULE PO SCH (20:08)
[2023-03-02] MEDS: ATORVASTATIN 10 MG TAB PO SCH (20:09)
[2023-03-02] MEDS: ACETAMINOPHEN 325 MG TAB PO PRN (20:27)
[2023-03-02] MEDS: MELATONIN 3 MG TAB PO PRN (23:41)
[2023-03-03] MEDS: LEVOTHYROXINE SODIUM 75 MCG TABLET PO SCH (05:42)
[2023-03-03] MEDS: ACETAMINOPHEN 325 MG TAB PO PRN ×4 (05:45→20:12)
[2023-03-03] MEDS: APIXABAN 5 MG TABLET PO SCH ×2 (07:41→20:12)
[2023-03-03] MEDS: rOPINIRole HCL 1 MG TABLET PO SCH ×3 (07:42→20:12)
[2023-03-03] MEDS: DULoxetine HCL 60 MG CAP PO SCH (07:42)
[2023-03-03] MEDS: busPIRone 5 MG TAB PO SCH ×3 (07:43→20:13)
[2023-03-03] MEDS: PANTOprazole 40 MG TAB PO SCH (07:43)
[2023-03-03 08:36] LABS: Hematocrit (blood only) 24.6 % (37.0-47.0); Hemoglobin 7.8 g/dl (12.0-16.0); Mean Corpuscular Hemoglobin 17.8 pg (25.0-34.0); Mean Corpuscular Hgb Conc 31.7 g/dL (32.0-36.0); Platelet Count 673 K/uL (130-400); RDW Coefficient of Variation 15.2 % (11.5-14.5); RDW Standard Deviation 29.4 fL (36.4-46.3); Red Blood Count 4.39 M/uL (4.20-5.40); White Blood Count 8.42 K/ul (4.8-10.8)
[2023-03-03 08:59] LABS: BUN Creatinine Ratio 19.2 (10-20); Calcium 8.7 mg/dl (8.6-10.3); Creatinine Clr Calc Pharmacy 84.4 ml/min; Est GFR (African American) 95.8 ml/min; Est GFR (Non-African American) 82.6 ml/min; Potassium 3.9 mmol/L (3.5-5.1)
[2023-03-03] MEDS: PIPERACILLIN/TAZOBACTAM 4.5 GM in DEXTROSE 5% 100 ML IV SCH (08:59)
[2023-03-03] MEDS: METOPROLOL SUCC 50MG EXT REL TAB PO SCH ×2 (09:00→20:12)
--- NOTE | 2023-03-03 14:58 | Hospitalist Progress Note ---
Date of Service March 03, 2023 Assessment & Plan (1) Right hip pain: Plan: 62 yo F with PMH of HTN, diabetes, obesity s/p gastric bypass, CHF, Afib on Eliquis, migraines, iron deficiency anemia, GERD, hypothyroidism, RLS, chronic pain, adjustment disorder, and anxiety here for leg pain found to have hyponatremia and afib RVR. Toxic encephalopathy Iatrogenic Patient received large doses of IV morphine and Ativan in the emergency room leading to obtundation Resolved Now awake and alert Right hip pain -CT pelvis results reviewed Orthopedics consulted. No evidence of abscess or infection. Some degree of pain is to be expected after Girdlestone procedure. WBC count normalized Tylenol does not help the pain She cannot use NSAIDs due to history of gastric bypass Tramadol cannot be used due to drug interaction with doxepin Will order lidocaine patch if needed Patient says that she is working on getting a marijuana card Discontinue Zosyn as no sign of infection Bacteuria -noted on 02/23 -Urine culture negative Discontinue Zosyn Blood culture negative as well Afib RVR -treated with metoprolol in ED -continue digoxin -continue metoprolol -continue eliquis Currently rate controlled Hypotension Resolved -s/p ativan, morphine, metoprolol in the emergency room -No concern for infection -received NSS 1L in ED -continue to monitor Hyponatremia -Presented with Na 125 Today sodium at 128 -received NSS 1000cc in ED -continue to monitor Anxiety -treated with ativan in ED -continue duloxetine -continue buspirone -continue doxepin Code status -unable to obtain on admit due to mental status -listed as full code based on prior admissions CHF, HTN, HLD -caution with fluids -continue atorvastatin -continue metoprolol DM2 -previously patient denied this condition RLS -continue ropinirole Hypothyroidism -continue levothyroxine GERD -continue omeprazole FENa: heart healthy carb consistent Code Status: Full DVT PPX: eliquis PT/OT: ordered Dispo: PCU (2) Anxiety: (3) HTN (hypertension): (4) Right heart failure, unspecified: (5) Hypothyroidism: (6) Diabetes: (7) Atrial fibrillation, chronic: (8) Chronic heart failure with preserved ejection fraction (HFpEF): (9) GERD (gastroesophageal reflux disease): (10) RLS (restless legs syndrome): (11) Migraines: (12) H/O gastric bypass: Admission and Anticipated Discharge Date Admission Date: March 02, 2023 Subjective Patient feels better overall. Still has right hip pain. Tylenol does not help. She cannot use NSAIDs because of her history of gastric bypass. She does not want to use narcotics. She says she is thinking of getting the medical marijuana card Review of Systems Review of Systems: All systems reviewed & are unremarkable except as noted in Subjective Physical Exam Physical Exam: General: Awake, conversant Heart: S1, S2/regular rate and rhythm, no murmur rubs or gallops Lungs: Clear to auscultation bilaterally. Normal effort Abdomen: Soft/nontender/nondistended. No hepatosplenomegaly Extremities: No clubbing/cyanosis. No edema Behavior: Appropriate, cooperative Results & Data Results & Data Vital Signs (Past 12 Hours) Vital Signs Temp Pulse Pulse Resp BP Pulse Ox O2 Del Method 03/03/23 11:34 36.8 C 90 16 112/67 97 Room Air 03/03/23 08:00 89 03/03/23 06:57 36.7 C 79 16 94/62 L 96 Room Air 03/03/23 03:00 36.8 C 77 18 106/61 96 Room Air Laboratory Results Abnormal lab results 03/02/23 03/03/23 03/03/23 Range/Units 04:06 08:18 08:18 Hgb 7.8 L (12.0-16.0) g/dl Hct 24.6 L (37.0-47.0) % MCV 56.0 L (80.0-100.0) fL MCH 17.8 L (25.0-34.0) pg MCHC 31.7 L (32.0-36.0) g/dL RDW Std Deviation 29.4 L (36.4-46.3) fL RDW Coeff of Fredrick 15.2 H (11.5-14.5) % Plt Count 673 H (130-400) K/uL MPV 9.0 L (9.4-12.4) fL ESR > 130 H (0-30) mm/hr Sodium 128 L (136-145) mmol/L Chloride 95 L (98-107) mmol/L Glucose 132 H (70-99(Fasting)) mg/dl PG Care Time/CCT Total # of Minutes Spent Total Time Spent with Patient: Total time spent is greater than 50% in coordination of care (as documented) at patient's floor/unit and/or counseling patient: Coding Level of Care Code 10271 SUB INP/OBS CARE 2/35MIN Diagnoses Right hip pain M25.551 Anxiety F41.9 HTN (hypertension) I10 Right heart failure, unspecified I50.810 Hypothyroidism E03.9 Diabetes E11.9 Atrial fibrillation, chronic I48.20 Chronic heart failure with preserved ejection fraction (HFpEF) I50.32 GERD (gastroesophageal reflux disease) K21.9 RLS (restless legs syndrome) G25.81 Migraines G43.909 H/O gastric bypass Z98.84
[2023-03-03] MEDS: MELATONIN 3 MG TAB PO PRN (20:11)
[2023-03-03] MEDS: rOPINIRole HCL 0.25 MG TABLET PO SCH (20:13)
[2023-03-03] MEDS: DOXEPIN HCL 50 MG CAPSULE PO SCH (20:13)
[2023-03-03] MEDS: ATORVASTATIN 10 MG TAB PO SCH (20:14)
[2023-03-03] MEDS: DIGOXIN 0.125 MG TAB PO SCH (20:14)
[2023-03-03] MEDS: DULoxetine HCL 30 MG CAP PO SCH (20:15)
[2023-03-04] MEDS: ACETAMINOPHEN 325 MG TAB PO PRN ×3 (00:41→13:08)
[2023-03-04] MEDS: LEVOTHYROXINE SODIUM 75 MCG TABLET PO SCH (05:37)
[2023-03-04 07:37] LABS: BUN Creatinine Ratio 22.1 (10-20); Calcium 8.8 mg/dl (8.6-10.3); Creatinine Clr Calc Pharmacy 97.1 ml/min; Est GFR (African American) 110.2 ml/min; Est GFR (Non-African American) 95.1 ml/min; Potassium 4.3 mmol/L (3.5-5.1)
[2023-03-04] MEDS: rOPINIRole HCL 1 MG TABLET PO SCH ×2 (07:53→13:08)
[2023-03-04] MEDS: APIXABAN 5 MG TABLET PO SCH (07:53)
[2023-03-04] MEDS: DULoxetine HCL 60 MG CAP PO SCH (07:53)
[2023-03-04] MEDS: PANTOprazole 40 MG TAB PO SCH (07:53)
[2023-03-04] MEDS: METOPROLOL SUCC 50MG EXT REL TAB PO SCH (07:54)
[2023-03-04] MEDS: busPIRone 5 MG TAB PO SCH ×2 (07:54→13:07)
--- NOTE | 2023-03-04 09:26 | Orthopedic Progress Note ---
Date of Service March 04, 2023 Assessment & Plan (1) Status post Girdlestone procedure: Kym is a 62-year-old female with multiple medical issues who is now a year status post Girdlestone procedure of her right hip. Only 50% of patients are able to walk on the Girdlestone procedure. It sounds like she can get around some with a walker. If she overdoes it for a little bit will be painful. This will be a lifelong symptom. By the CAT scan I do not see any signs of infection of the right hip. There is no hardware in place. I do recommend some form of pain control. We are limited in our options. I support the medical marijuana card, however, I told her we do not have any conclusive studies that shows that we will help. She can be weightbearing as tolerated on the right hip. There is no need to follow-up with orthopedics at this point. If you have any further questions please feel free to Shorter text me or contact me personally on my cell phone [phone] Subjective Kym was seen and examined at bedside this morning. Unfortunately she still having some pain in her right hip. She the Tylenol is not effective. She cannot take anti-inflammatories due to gastric bypass surgery. She does not want to take narcotics. She is hoping to get a medical marijuana card. Overall she feels okay. She has no new complaints.. Review of Systems All systems reviewed & are unremarkable except as noted in HPI & below. Physical Exam On physical examination the right hip, there is a ulcer that is being treated near the wound. She has mild pain with range of motion of the hip.. Results & Data Results & Data Laboratory Results . Diagnostic Findings . PG Care Time/CCT Total # of Minutes Spent Total Time Spent with Patient: Total time spent is greater than 50% in coordination of care (as documented) at patient's floor/unit and/or counseling patient: Coding Level of Care Code 73974 Post Operative Follow-Up Diagnoses Status post Girdlestone procedure Z98.890
--- NOTE | 2023-03-04 13:24 | Discharge Summary ---
Date of Service March 04, 2023 Admission HPI Per Admitting Provider 62 yo F with PMH of HTN, diabetes, obesity s/p gastric bypass, CHF, Afib on Eliquis, migraines, iron deficiency anemia, GERD, hypothyroidism, RLS, chronic pain, adjustment disorder, and anxiety here for leg pain found to have hyponatremia and afib RVR. Patient was obtunded on exam, was able to state her right hip hurt worsened in the past day, did not have a POA, quickly fell back asleep. Majority of history taken from ED record. Per ED, patient came to ED for b/l leg pain that is associated with her anxiety felt very anxious. She has a history of right hip arthroplasty with hardware loosening, history of joint infection treated with dapto, and was transferred to [facility] 01/11 for removal of hardware. Was recently seen by PCP 02/27 for right hip pain CT right hip ordered not done yet. Recent ED visits noted positive urine culture Enterobacter Cloacae resistant to ceftriaxone untreated. In ED patient received ativan 2mg morphine 12mg for anxiety and pain, became obtunded after. Noted ongoing afib RVR treated with metoprolol 5mg IV, noted hypotension 92/65 likely from prior medications treated with NSS 1000cc total. Also noted hyponatremia. Patient will be listed as full code based on prior admission records. Admission Exam Per Admitting Provider Constitutional: well developed, well nourished, cooperative and comfortable ENMT: external ear and nose normal, oropharynx normal Respiratory: normal respiratory effort Cardiovascular: Rate/Rhythm: regular rate and regular rhythm Gastrointestinal (Abdomen): Inspection/Auscultation: abdomen normal to inspection Skin: no rashes, warm and dry Principal Diagnosis right hip pain Iatrogenic Toxic encephalopathy secondary to morphine and Ativan used in the emergency room Discharge Exam General: Awake, conversant Heart: S1, S2/regular rate and rhythm, no murmur rubs or gallops Lungs: Clear to auscultation bilaterally. Normal effort Abdomen: Soft/nontender/nondistended. No hepatosplenomegaly Extremities: No clubbing/cyanosis. No edema Behavior: Appropriate, cooperative Discharge Data Allergies Allergy/AdvReac Type Severity Reaction Status Date / Time hylan G-F 20 Allergy Severe CAN'T Verified 03/02/23 03:03 REMEMBER mushroom Allergy Intermediate RASH Verified 03/02/23 03:03 Consultations 03/02/23 05:17 ED Decision to Admit Stat 03/02/23 15:47 Consult Orthopedic Surgery Routine Ordered Studies 03/02/23 06:12 CT bony pelvis wo con Routine Hospital Course (1) Right hip pain: 62 yo F with PMH of HTN, diabetes, obesity s/p gastric bypass, CHF, Afib on Eliquis, migraines, iron deficiency anemia, GERD, hypothyroidism, RLS, chronic pain, adjustment disorder, and anxiety here for leg pain found to have hyponatremia and afib RVR. Toxic encephalopathy Iatrogenic Patient received large doses of IV morphine and Ativan in the emergency room leading to obtundation Resolved Now awake and alert Right hip pain -CT pelvis results reviewed Orthopedics consulted. No evidence of abscess or infection. Some degree of pain is to be expected after Girdlestone procedure. WBC count normalized Tylenol does not help the pain She cannot use NSAIDs due to history of gastric bypass Tramadol cannot be used due to drug interaction with doxepin Patient says that she is working on getting a marijuana card Discontinued Zosyn as no sign of infection Bacteuria -noted on 02/23 -Urine culture negative Discontinued Zosyn Blood culture negative as well Afib RVR -treated with metoprolol in ED -continue digoxin -continue metoprolol -continue eliquis Currently rate controlled Hypotension Resolved -s/p ativan, morphine, metoprolol in the emergency room -No concern for infection -received NSS 1L in ED Hyponatremia -Presented with Na 125 improved -received NSS 1000cc in ED Anxiety -treated with ativan in ED -continue duloxetine -continue buspirone -continue doxepin CHF, HTN, HLD -caution with fluids -continue atorvastatin -continue metoprolol DM2 -previously patient denied this condition RLS -continue ropinirole Hypothyroidism -continue levothyroxine GERD -continue omeprazole FENa: heart healthy carb consistent Code Status: Full DVT PPX: eliquis discharge today (2) Anxiety: (3) HTN (hypertension): (4) Right heart failure, unspecified: (5) Hypothyroidism: (6) Diabetes: (7) Atrial fibrillation, chronic: (8) Chronic heart failure with preserved ejection fraction (HFpEF): (9) GERD (gastroesophageal reflux disease): (10) RLS (restless legs syndrome): (11) Migraines: (12) H/O gastric bypass: Total Time Total Time Spent Total Time Spent (In Minutes): 35 Discharge Plan Discharge Items Patient Disposition: Home - Self-Care Reason For Visit: B/L LEG PAIN Discharge Diagnosis: right hip pain Toxic encephalopathy (iatrogenic) due to large doses of IV morphine and Ativan A-fib with a rapid ventricular response Hyponatremia, due to dehydration Activity: Resume your previous activity Non-emergency contact: Primary Care Provider Call non-emergency contact if: you have any medication questions and your symptoms worsen Follow-up/Referrals: Cyndy Don MD [Primary Care Provider] - 03/12/23 1:00 pm Diet: Carb Consistent or DM2 and Heart Healthy Addtl Attending Provider Instructions: advised to follow-up with PCP in 1 week Advised to note that some degree of pain is to be expected after a Girdlestone procedure for the right hip. Pending Studies at Discharge: No Stand-Alone Forms: My [facility] Medications and DC Order Prescriptions: Continued atorvastatin 10 mg tablet 10 mg PO HS Qty: 90 3RF buspirone 10 mg tablet 10 mg PO TID Qty: 270 3RF digoxin 125 mcg (0.125 mg) tablet 125 mcg PO QPM Qty: 90 3RF Rx Instructions: hold for pulse < 60 metoprolol succinate 100 mg tablet extended release 24 hr 100 mg PO BID Qty: 180 3RF ropinirole 1 mg tablet 1 mg PO TID Qty: 270 3RF Eliquis 5 mg tablet 5 mg PO BID Qty: 180 3RF (DME) Power Wheelchair Device See Rx Instructions .Route Qty: 1 0RF Rx Instructions: As directed furosemide [Lasix] 20 mg tablet 40 mg PO QAM PRN (Reason: edema) Qty: 180 3RF ropinirole 0.25 mg tablet 0.25 mg PO HS Qty: 90 3RF duloxetine 60 mg capsule,delayed release(DR/EC) 60 mg PO DAILY Qty: 90 3RF hydroxyzine HCl 50 mg tablet 50 - 100 mg PO TID PRN (Reason: anxiety) Qty: 180 3RF diclofenac sodium [Arthritis Pain (diclofenac)] 1 % gel 4 g topical QID PRN (Reason: rash) Qty: 100 0RF cyclobenzaprine 10 mg tablet 10 mg PO TID PRN (Reason: muscle spasm) Qty: 30 0RF silver sulfadiazine 1 % cream 1 applic topical BID Qty: 20 0RF Rx Instructions: apply a 1.5 mm thickness levothyroxine 75 mcg tablet 75 mcg PO DAILY Qty: 90 3RF Centrum Silver 0.4 mg-300 mcg- 250 mcg Tablet 1 tab PO QAM cholecalciferol (vitamin D3) [Vitamin D3] 50 mcg (2,000 unit) Capsule 50 mcg PO QAM polyethylene glycol 3350 [Miralax] 17 gram powder in packet 17 g PO BID PRN (Reason: Constipation) acetaminophen [Tylenol Extra Strength] 500 mg tablet 1,000 mg PO Q8 PRN (Reason: Pain) omeprazole 20 mg tablet,delayed release (DR/EC) 20 mg PO DAILY cyanocobalamin (vitamin B-12) 1,000 mcg capsule 1,000 mcg PO QAM duloxetine 30 mg capsule,delayed release(DR/EC) 30 mg PO HS doxepin 100 mg capsule 100 mg PO HS Discharge Orders: Discharge Order (Routine); Ordered 03/04/23 Ordered By: Cristin Harris/Other Patient Handouts: 5 Steps for Eating Healthier Admission Data Admit Date/Time: 03/02/23 05:51 Attending Provider: Cristin Auguste Admit Provider: Nhung Marinelli Primary Care Provider: Cyndy Don Other Providers: Luke Arambula ; Dameon Simon Other Interventions: Discharge Summary Assessment (RN) Last Done: 03/04/23 13:22 Coding Level of Care Code 60633 INP/OBS DISCH >30 MIN Diagnoses Right hip pain M25.551 Anxiety F41.9 HTN (hypertension) I10 Right heart failure, unspecified I50.810 Hypothyroidism E03.9 Diabetes E11.9 Atrial fibrillation, chronic I48.20 Chronic heart failure with preserved ejection fraction (HFpEF) I50.32 GERD (gastroesophageal reflux disease) K21.9 RLS (restless legs syndrome) G25.81 Migraines G43.909 H/O gastric bypass Z98.84
--- NOTE | 2023-03-04 20:07 | Electrocardiogram Report ---
Test Reason : Blood Pressure : / mmHG Vent. Rate : 131 BPM Atrial Rate : 000 BPM P-R Int : 000 ms QRS Dur : 092 ms QT Int : 278 ms P-R-T Axes : 000 022 225 degrees QTc Int : 410 ms Atrial fibrillation with rapid ventricular response Nonspecific ST and T wave abnormality Abnormal ECG When compared with ECG of 23-FEB-2023 10:11, No significant change was found Confirmed by Reji White ([id number]) on 03/04/2023 8:06:37 PM Referred By: Cyndy Don Confirmed By:Reji White
[2023-03-06 13:52] LABS: C-Reactive Protein High Sens. >10.0 mg/L
== END 2023-03-04 16:30 | disposition home or self-care (01) | DRG 92 ==
LOC: ED 02:49 → EDINP 05:51 → SUATTDRO 05:51 → 2S 09:33 → 3N 03-03 18:32

== ENCOUNTER 2023-04-14 11:14 | Observation (INO) ==
--- NOTE | 2023-04-14 12:37 | Emergency Department Note ---
Impression & Plan Acute metabolic encephalopathy, UTI (urinary tract infection) ED Provider Note NAME: LAURIE HAMILTON AGE: 62 SEX: F : 1960 ARRIVES VIA: Ambulance INFORMANT: Patient, ED PROVIDER(S): Clemente Nicole MD CHIEF COMPLAINT: Fall HPI: This is a 62-year-old female history of previous MSSA bacteremia, hyponatremia, hypertension, CHF, GERD presenting for fall. Patient is currently altered. Upon arrival patient reportedly was extremely anxious, nonlinear thought process as per nurse. She has slurred speech as well at times. To have my evaluation patient is arousable to voice. She is appears altered, and provide a significant history. Recently she was admitted for bacteremia. Patient appears significant fluid overloaded with bilateral lower extremity edema. ROS: See above HPI for pertinent positives & negatives. A total of 10 systems reviewed and were otherwise negative. PAST MEDICAL HISTORY: See Below PAST SURGICAL HISTORY: See Below FAMILY HISTORY: See Below SOCIAL HISTORY: See Below HOME MEDICATIONS: See Below ALLERGIES: See Below VITALS: See Below PHYSICAL EXAMINATION: General: Chronically ill-appearing Head: Normocephalic and atraumatic Eyes: Normal inspection, extraocular muscles intact, no conjunctival pallor Ear, nose, throat: Normal external exam Neck: Normal range of motion Respiratory: Patient is in no respiratory distress, lungs clear to auscultation bilaterally Cardiovascular: RRR without murmur appreciated GI: soft, nontender, no guarding or rebound Extremities: pulses intact with good cap refills, significant pitting edema to bilateral lower extremities, chronic venous skin changes bilaterally Neuro: Intermittently awake, with extremities spontaneously, not oriented at this time Skin: Warm, dry, and intact. MEDICAL DECISION MAKING: This is a 62-year-old female with history of previous MSSA bacteremia, hyponatremia, hypertension, CHF, GERD presenting after a fall. Patient currently altered. Consider sepsis possible etiology as she is slightly hypotensive. She is not tachycardic, tachypneic. She is arousable and does open her eyes occasionally. Does not answer significant questioning however. She has significant swollen legs with significant edema but does appear clinically dry. Patient has no other signs of external trauma we will get CT of the head and neck just to rule out. Otherwise we will get other work-up to help elucidate further etiology. Patient CT head and C-spine revealed no acute processes at this time. Patient appears to have waxing and waning mental status. She goes from obtunded to excited delirium. Her urinalysis does reveal signs of UTI which could explain her current mental status. She has also had previous MSSA bacteremia, blood cultures have been sent. Patient blood work overall is reassuring without significant life-threatening abnormalities. Will discuss for admission with hospitalist. Triage Nursing notes reviewed. Prior medical records reviewed Vital Signs: reviewed and remarkable for no significant abnormalities Differential diagnosis: Intracranial hemorrhage, sepsis, UTI, cellulitis ER treatment provided: See below Diagnostics interpreted by me: ECG: ECG reviewed by me with atrial fibrillation at a rate of 104, normal axis,, normal QRS, normal QTc, no ST segment elevations consistent with STEMI criteria Cardiac Monitoring: An order was placed for continuous cardiac monitoring. The monitor shows a rate of 85 with sinus rhythm. Laboratory studies: As stated above and show below. Imaging studies: See below. Radiographic imaging was reviewed by myself Consultation(s): None Past Med/Surg History Medical History (Updated 04/15/23 @ 09:04 by Clemente Nicole MD) Acute hyponatremia Anemia Anxiety Arthroplasty of knee (Unknown) "bilateral " Atrial fibrillation follows with [facility] Cardiology (Donna Osborne PA-C) dx a year ago. no cardioversions in the past. Atrial fibrillation with RVR Cellulitis hx Chronic heart failure with preserved ejection fraction (HFpEF) Constipation GERD (gastroesophageal reflux disease) occasional History of COVID-19 July 2020 treated at a hospital in [place] for several days. 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 unsure of cause. Pneumonia hx - "years ago" Poor historian RLS (restless legs syndrome) Scabies Sleep apnea hx -- since weightloss and gastric bypass surgery no problems with PORTILLO. Weight loss, unintentional Surgical History H/O gastric bypass History of bilateral hip replacements History of bilateral knee arthroplasty History of section History of cholecystectomy History of colonoscopy History of esophagogastroduodenoscopy (EGD) S/P revision of total hip Status post hip surgery R HIP REPLACEMENT REMOVED DUE TO INFX Family History Father Colorectal cancer Mother Diabetes Other FHx: throat cancer No family history of adverse response to anesthesia Denies family history of Ovarian cancer Prostate cancer Myocardial infarction Breast cancer Social History Smoking Status: Former smoker Tobacco Type: Cigarettes Second Hand Exposure: No; Do You Dip or Chew Tobacco: No; Tobacco Cessation Education Requested by Patient: No Hx Alcohol Use: Yes Alcohol type: wine Hx Substance Use: No Preferred Language: Mongolian Communication Ability: Effective Visual Impairment: Partially Limited [employer] Required: No Beliefs That Will Affect Care: None marital status: Current Living Situation: Alone Current Living Situation Comment: lives alone in apartment, daughter checks on her How many Children do You have: 3 Other Information That Helps Us Care for You: No Feels Safe at Home: Yes Safety Concerns: Feels Safe At This Time Assistive Devices: Walker and Wheelchair Allergies Allergies Allergy/AdvReac Type Severity Reaction Status Date / Time hylan G-F 20 Allergy Severe CAN'T Verified 04/14/23 16:57 REMEMBER mushroom Allergy Intermediate RASH Verified 04/14/23 16:57 Home Meds Home Medications Medication Instructions Recorded Confirmed acetaminophen 500 mg tablet 1,000 mg PO Q8 PRN Pain 10/11/22 04/14/23 (Tylenol Extra Strength) cholecalciferol (vitamin D3) 50 50 mcg PO QAM 10/11/22 04/14/23 mcg (2,000 unit) capsule (Vitamin D3) [id number] acid 0.4 1 tab PO QAM 10/11/22 04/14/23 mg-lycopene 300 mcg-lutein 250 mcg tablet (Centrum Silver) omeprazole 20 mg tablet,delayed 20 mg PO DAILY 10/11/22 04/14/23 release polyethylene glycol 3350 17 gram 17 g PO BID PRN Constipation 10/11/22 04/14/23 oral powder packet (Miralax) doxepin 100 mg capsule 100 mg PO HS 01/23/23 04/14/23 duloxetine 60 mg capsule,delayed 60 mg PO AMHS 03/20/23 04/14/23 release cefazolin 1 gram intravenous 2 g IV TID 04/01/23 04/14/23 solution cyanocobalamin (vitamin B-12) 1,000 mcg PO QAM 04/01/23 04/14/23 1,000 mcg capsule Previous Rx's Medication Instructions Recorded atorvastatin 10 mg tablet 10 mg PO HS #90 tabs 10/24/22 buspirone 10 mg tablet 10 mg PO TID #270 tabs 10/24/22 digoxin 125 mcg (0.125 mg) tablet 125 mcg PO QPM #90 tabs 10/24/22 metoprolol succinate 100 mg 100 mg PO BID #180 tabs 10/24/22 tablet,extended release 24 hr ropinirole 1 mg tablet 1 mg PO TID #270 tabs 10/24/22 apixaban 5 mg tablet (Eliquis) 5 mg PO BID #180 tabs 10/30/22 furosemide 20 mg tablet (Lasix) 40 mg PO QAM PRN edema #180 tabs 11/16/22 ropinirole 0.25 mg tablet 0.25 mg PO HS #90 tabs 11/22/22 cyclobenzaprine 10 mg tablet 10 mg PO TID PRN muscle spasm #30 02/27/23 tabs diclofenac sodium 1 % topical gel 4 g topical QID PRN rash #100 grams 02/27/23 (Arthritis Pain (diclofenac)) levothyroxine 75 mcg tablet 75 mcg PO DAILY #90 tabs 02/27/23 silver sulfadiazine 1 % topical 1 applic topical BID #20 grams 02/27/23 cream hydroxyzine HCl 50 mg tablet 50 - 100 mg PO TID PRN anxiety 03/07/23 #180 tabs cetirizine 10 mg tablet 10 mg PO BID PRN itching 30 days 03/29/23 #60 tabs collagenase clostridium histo. 250 1 applic EXT DAILY #30 grams 03/29/23 unit/gram topical ointment (Santyl) Results & Data (ED) Vital Signs Vital Signs - 24 hr 04/14/23 11:26 04/14/23 12:17 04/14/23 12:19 Temperature 36.7 C Temperature Source Oral Pulse Rate 109 H 103 H Pulse Rate [Apical] Pulse Rate from SpO2 Sensor Respiratory Rate 20 Respiratory Depth Normal Blood Pressure 109/72 Blood Pressure [Left Arm] Blood Pressure Mean 84 Blood Pressure Mean [Left Arm] Blood Pressure Position [Left Arm] Pulse Oximetry 98 91 Oxygen Delivery Method Room Air Room Air Sepsis Recent Fever Within 48 Hours No Sepsis New/Unexplained Change in Mental Status No Sepsis Action Taken by Nursing No Action Required 04/14/23 12:22 04/14/23 14:01 04/14/23 15:00 Temperature Temperature Source Pulse Rate Pulse Rate [Apical] 86 110 H Pulse Rate from SpO2 Sensor Respiratory Rate 16 20 Respiratory Depth Normal Blood Pressure 102/66 Blood Pressure [Left Arm] 88/53 L 111/89 Blood Pressure Mean 83 Blood Pressure Mean [Left Arm] 64 96 Blood Pressure Position [Left Arm] Lying Pulse Oximetry 94 95 Oxygen Delivery Method Room Air Room Air Sepsis Recent Fever Within 48 Hours Sepsis New/Unexplained Change in Mental Status Sepsis Action Taken by Nursing 04/14/23 15:00 04/14/23 15:30 04/14/23 15:30 Temperature Temperature Source Pulse Rate 94 H 87 Pulse Rate [Apical] Pulse Rate from SpO2 Sensor 91 H 97 H Respiratory Rate 17 16 Respiratory Depth Blood Pressure 115/79 Blood Pressure [Left Arm] Blood Pressure Mean 83 Blood Pressure Mean [Left Arm] Blood Pressure Position [Left Arm] Pulse Oximetry 98 95 Oxygen Delivery Method Room Air Room Air Sepsis Recent Fever Within 48 Hours Sepsis New/Unexplained Change in Mental Status Sepsis Action Taken by Nursing 04/14/23 16:16 04/14/23 16:00 04/14/23 16:00 Temperature Temperature Source Pulse Rate 94 H 99 H Pulse Rate [Apical] Pulse Rate from SpO2 Sensor 97 H Respiratory Rate 16 Respiratory Depth Blood Pressure 119/90 Blood Pressure [Left Arm] Blood Pressure Mean 102 Blood Pressure Mean [Left Arm] Blood Pressure Position [Left Arm] Pulse Oximetry 96 Oxygen Delivery Method Room Air Sepsis Recent Fever Within 48 Hours Sepsis New/Unexplained Change in Mental Status Sepsis Action Taken by Nursing 04/14/23 16:30 04/14/23 16:30 Temperature Temperature Source Pulse Rate 81 Pulse Rate [Apical] Pulse Rate from SpO2 Sensor 83 Respiratory Rate 15 Respiratory Depth Blood Pressure 119/93 Blood Pressure [Left Arm] Blood Pressure Mean 99 Blood Pressure Mean [Left Arm] Blood Pressure Position [Left Arm] Pulse Oximetry 95 Oxygen Delivery Method Room Air Sepsis Recent Fever Within 48 Hours Sepsis New/Unexplained Change in Mental Status Sepsis Action Taken by Nursing Laboratory Data 04/14/23 12:10 04/14/23 12:10 Lab Results 04/14/23 04/14/23 04/14/23 Range/Units 12:10 12:10 12:10 WBC 7.81 (4.8-10.8) K/ul RBC 4.21 (4.20-5.40) M/uL Hgb 8.5 L (12.0-16.0) g/dl Hct 27.2 L (37.0-47.0) % MCV 64.6 L (80.0-100.0) fL MCH 20.2 L (25.0-34.0) pg MCHC 31.3 L (32.0-36.0) g/dL RDW Std Deviation 61.2 H (36.4-46.3) fL RDW Coeff of Fredrick 27.6 H (11.5-14.5) % Plt Count 315 (130-400) K/uL MPV 9.6 (9.4-12.4) fL Immature Gran % (Auto) 0.3 % Neut % (Auto) 78.8 % Lymph % (Auto) 9.5 % [place] % (Auto) 9.3 % Eos % (Auto) 1.8 % Baso % (Auto) 0.3 % Neut # (Auto) 6.16 (1.40-6.50) K/uL Lymph # (Auto) 0.74 L (1.20-3.40) K/uL [place] # (Auto) 0.73 H (0.11-0.59) K/uL Eos # (Auto) 0.14 (0.00-0.50) K/uL Baso # (Auto) 0.02 (0.00-0.20) K/uL Immature Gran # (Auto) 0.02 (0.01-0.20) K/uL Absolute Nucleated RBC 0.20 H (0.00-0.12) K/uL Nucleated RBC % (auto) 2.6 % Polychromasia 1+ Hypochromasia Present Anisocytosis Present Microcytosis Present Target Cells 2+ Schistocytes 1+ PT 13.5 H (9.0-12.0) Seconds INR 1.2 H (0.9-1.1) APTT 31.7 H (21.0-31.0) Seconds PTT Ratio 1.1 VBG pH (7.36-7.41) VBG pCO2 (38-50) mmHg VBG pO2 mmHg VBG HCO3 mmol/L VBG O2 Saturation % VBG Base Excess mEq/L Sodium 131 L (136-145) mmol/L Potassium 3.9 (3.5-5.1) mmol/L Chloride 96 L (98-107) mmol/L Carbon Dioxide 27 (21-32) mmol/L Anion Gap 8 (3-11) BUN 11 (6-23) mg/dl Creatinine 0.85 (0.6-1.2) mg/dl Est Cr Clr Drug Dosing Not Reportable Est GFR ( Amer) 86.3 ml/min Est GFR (Non-Af Amer) 74.5 ml/min BUN/Creatinine Ratio 12.9 (10-20) Glucose 117 H (70-99(Fasting)) mg/dl Lactate (0.4-2.0) mmol/L Calcium 8.7 (8.6-10.3) mg/dl Total Bilirubin 1.6 H (0.2-1.0) mg/dl AST 15 (13-39) U/L ALT 5 L (7-52) U/L Alkaline Phosphatase 176 H (34-104) U/L Ammonia (18-72) umol/L Troponin I High Sens 2.9 (0-14) pg/ml Total Protein 8.0 (6.0-8.3) gm/dl Albumin 3.1 L (3.4-5.0) gm/dl Globulin 4.9 H (2.5-4.0) gm/dl Albumin/Globulin Ratio 0.6 L (0.9-2) Urine Color Urine Appearance (Clear) Urine pH (4.5-7.5) Ur Specific [place] (1.000-1.030) Urine Protein (Negative) Urine Glucose (UA) (Negative) Urine Ketones (Negative) Urine Blood (Negative) Urine Nitrite (Negative) Urine Bilirubin (Negative) Urine Urobilinogen (Negative) Ur Leukocyte Esterase (Negative) Urine WBC (Auto) (0-5) /hpf Urine RBC (Auto) (0-4) /hpf U Hyaline Cast (Auto) (0-5) /lpf U Epithel Cells (Auto) (0-5) /lpf Urine Bacteria (Auto) (Negative) Urine Opiates Screen (Neg) Ur Methadone, Qual (Neg) Urine Barbiturates (Neg) Ur Phencyclidine (PCP) (Neg) U Amphetamin/Meth Scrn (Neg) MDMA (Ecstasy) Screen (Neg) U Benzodiazepines Scrn (Neg) Ur Cocaine Metabolite (Neg) U Marijuana (THC) Screen (Neg) Ethyl Alcohol mg/dL (<10.0) mg/dl 04/14/23 04/14/23 04/14/23 Range/Units 12:53 12:53 12:53 WBC (4.8-10.8) K/ul RBC (4.20-5.40) M/uL Hgb (12.0-16.0) g/dl Hct (37.0-47.0) % MCV (80.0-100.0) fL MCH (25.0-34.0) pg MCHC (32.0-36.0) g/dL RDW Std Deviation (36.4-46.3) fL RDW Coeff of Fredrick (11.5-14.5) % Plt Count (130-400) K/uL MPV (9.4-12.4) fL Immature Gran % (Auto) % Neut % (Auto) % Lymph % (Auto) % [place] % (Auto) % Eos % (Auto) % Baso % (Auto) % Neut # (Auto) (1.40-6.50) K/uL Lymph # (Auto) (1.20-3.40) K/uL [place] # (Auto) (0.11-0.59) K/uL Eos # (Auto) (0.00-0.50) K/uL Baso # (Auto) (0.00-0.20) K/uL Immature Gran # (Auto) (0.01-0.20) K/uL Absolute Nucleated RBC (0.00-0.12) K/uL Nucleated RBC % (auto) % Polychromasia Hypochromasia Anisocytosis Microcytosis Target Cells Schistocytes PT (9.0-12.0) Seconds INR (0.9-1.1) APTT (21.0-31.0) Seconds PTT Ratio VBG pH (7.36-7.41) VBG pCO2 (38-50) mmHg VBG pO2 mmHg VBG HCO3 mmol/L VBG O2 Saturation % VBG Base Excess mEq/L Sodium (136-145) mmol/L Potassium (3.5-5.1) mmol/L Chloride (98-107) mmol/L Carbon Dioxide (21-32) mmol/L Anion Gap (3-11) BUN (6-23) mg/dl Creatinine (0.6-1.2) mg/dl Est Cr Clr Drug Dosing Est GFR ( Amer) ml/min Est GFR (Non-Af Amer) ml/min BUN/Creatinine Ratio (10-20) Glucose (70-99(Fasting)) mg/dl Lactate 1.9 (0.4-2.0) mmol/L Calcium (8.6-10.3) mg/dl Total Bilirubin (0.2-1.0) mg/dl AST (13-39) U/L ALT (7-52) U/L Alkaline Phosphatase (34-104) U/L Ammonia 26.0 (18-72) umol/L Troponin I High Sens (0-14) pg/ml Total Protein (6.0-8.3) gm/dl Albumin (3.4-5.0) gm/dl Globulin (2.5-4.0) gm/dl Albumin/Globulin Ratio (0.9-2) Urine Color Urine Appearance (Clear) Urine pH (4.5-7.5) Ur Specific [place] (1.000-1.030) Urine Protein (Negative) Urine Glucose (UA) (Negative) Urine Ketones (Negative) Urine Blood (Negative) Urine Nitrite (Negative) Urine Bilirubin (Negative) Urine Urobilinogen (Negative) Ur Leukocyte Esterase (Negative) Urine WBC (Auto) (0-5) /hpf Urine RBC (Auto) (0-4) /hpf U Hyaline Cast (Auto) (0-5) /lpf U Epithel Cells (Auto) (0-5) /lpf Urine Bacteria (Auto) (Negative) Urine Opiates Screen (Neg) Ur Methadone, Qual (Neg) Urine Barbiturates (Neg) Ur Phencyclidine (PCP) (Neg) U Amphetamin/Meth Scrn (Neg) MDMA (Ecstasy) Screen (Neg) U Benzodiazepines Scrn (Neg) Ur Cocaine Metabolite (Neg) U Marijuana (THC) Screen (Neg) Ethyl Alcohol mg/dL < 10.0 (<10.0) mg/dl 04/14/23 04/14/23 04/14/23 Range/Units 13:05 13:43 13:43 WBC (4.8-10.8) K/ul RBC (4.20-5.40) M/uL Hgb (12.0-16.0) g/dl Hct (37.0-47.0) % MCV (80.0-100.0) fL MCH (25.0-34.0) pg MCHC (32.0-36.0) g/dL RDW Std Deviation (36.4-46.3) fL RDW Coeff of Fredrick (11.5-14.5) % Plt Count (130-400) K/uL MPV (9.4-12.4) fL Immature Gran % (Auto) % Neut % (Auto) % Lymph % (Auto) % [place] % (Auto) % Eos % (Auto) % Baso % (Auto) % Neut # (Auto) (1.40-6.50) K/uL Lymph # (Auto) (1.20-3.40) K/uL [place] # (Auto) (0.11-0.59) K/uL Eos # (Auto) (0.00-0.50) K/uL Baso # (Auto) (0.00-0.20) K/uL Immature Gran # (Auto) (0.01-0.20) K/uL Absolute Nucleated RBC (0.00-0.12) K/uL Nucleated RBC % (auto) % Polychromasia Hypochromasia Anisocytosis Microcytosis Target Cells Schistocytes PT (9.0-12.0) Seconds INR (0.9-1.1) APTT (21.0-31.0) Seconds PTT Ratio VBG pH 7.38 (7.36-7.41) VBG pCO2 48 (38-50) mmHg VBG pO2 33 mmHg VBG HCO3 28 mmol/L VBG O2 Saturation < 60.0 % VBG Base Excess 2.5 mEq/L Sodium (136-145) mmol/L Potassium (3.5-5.1) mmol/L Chloride (98-107) mmol/L Carbon Dioxide (21-32) mmol/L Anion Gap (3-11) BUN (6-23) mg/dl Creatinine (0.6-1.2) mg/dl Est Cr Clr Drug Dosing Est GFR ( Amer) ml/min Est GFR (Non-Af Amer) ml/min BUN/Creatinine Ratio (10-20) Glucose (70-99(Fasting)) mg/dl Lactate (0.4-2.0) mmol/L Calcium (8.6-10.3) mg/dl Total Bilirubin (0.2-1.0) mg/dl AST (13-39) U/L ALT (7-52) U/L Alkaline Phosphatase (34-104) U/L Ammonia (18-72) umol/L Troponin I High Sens (0-14) pg/ml Total Protein (6.0-8.3) gm/dl Albumin (3.4-5.0) gm/dl Globulin (2.5-4.0) gm/dl Albumin/Globulin Ratio (0.9-2) Urine Color Dark Yellow Urine Appearance Turbid A (Clear) Urine pH 6.0 (4.5-7.5) Ur Specific [place] 1.008 (1.000-1.030) Urine Protein Trace H (Negative) Urine Glucose (UA) Negative (Negative) Urine Ketones Negative (Negative) Urine Blood 2+ H (Negative) Urine Nitrite Negative (Negative) Urine Bilirubin Negative (Negative) Urine Urobilinogen Positive H (Negative) Ur Leukocyte Esterase 3+ H (Negative) Urine WBC (Auto) >30 H (0-5) /hpf Urine RBC (Auto) 5-10 H (0-4) /hpf U Hyaline Cast (Auto) 0 (0-5) /lpf U Epithel Cells (Auto) 5-10 H (0-5) /lpf Urine Bacteria (Auto) 2+ H (Negative) Urine Opiates Screen Neg (Neg) Ur Methadone, Qual Neg (Neg) Urine Barbiturates Neg (Neg) Ur Phencyclidine (PCP) Neg (Neg) U Amphetamin/Meth Scrn Neg (Neg) MDMA (Ecstasy) Screen Neg (Neg) U Benzodiazepines Scrn Neg (Neg) Ur Cocaine Metabolite Neg (Neg) U Marijuana (THC) Screen Pos H (Neg) Ethyl Alcohol mg/dL (<10.0) mg/dl Administered Medications Apixaban (Apixaban 5 Mg Tablet) 5 mg PO BID RAMIREZ Stop: 05/14/23 20:59 Last Admin: 04/14/23 20:06 Dose: 5 mg Documented By: RC Atorvastatin Calcium (Atorvastatin 10 Mg Tab) 10 mg PO HS RAMIREZ Stop: 05/14/23 20:59 Last Admin: 04/14/23 20:05 Dose: 10 mg Documented By: CRISTHIAN Buspirone HCl (Buspirone 5 Mg Tab) 10 mg PO TID RAMIREZ Stop: 05/14/23 20:59 Last Admin: 04/14/23 20:05 Dose: 10 mg Documented By: CRISTHIAN Digoxin (Digoxin 0.125 Mg Tab) 0.125 mg PO DAILY@1600 RAMIREZ Stop: 05/14/23 20:59 Last Admin: 04/14/23 20:05 Dose: 0.125 mg Documented By: CRISTHIAN Doxepin HCl (Doxepin Hcl 50 Mg Capsule) 100 mg PO HS RAMIREZ Stop: 05/14/23 20:59 Last Admin: 04/14/23 20:07 Dose: 100 mg Documented By: CRISTHIAN Duloxetine HCl (Duloxetine Hcl 60 Mg Cap) 60 mg PO AMHS RAMIREZ Stop: 05/14/23 20:59 Last Admin: 04/14/23 20:06 Dose: 60 mg Documented By: CRISTHIAN Levothyroxine Sodium (Levothyroxine Sodium 75 Mcg Tablet) 75 mcg PO DAILYBB RAMIREZ Stop: 05/15/23 06:29 Last Admin: 04/15/23 05:34 Dose: 75 mcg Documented By: CRISTHIAN Metoprolol Succinate (Metoprolol Succ 50mg Ext Rel Tab) 100 mg PO BID RAMIREZ Stop: 05/14/23 20:59 Last Admin: 04/14/23 20:06 Dose: 100 mg Documented By: CRISTHIAN Ropinirole HCl (Ropinirole Hcl 1 Mg Tablet) 1 mg PO TID RAMIREZ Stop: 05/14/23 20:59 Last Admin: 04/14/23 20:07 Dose: 1 mg Documented By: CRISTHIAN Ropinirole HCl (Ropinirole Hcl 0.25 Mg Tablet) 0.25 mg PO HS RAMIREZ Stop: 05/14/23 20:59 Last Admin: 04/14/23 20:07 Dose: 0.25 mg Documented By: CRISTHIAN Discontinued Medications Ceftriaxone Sodium 2,000 mg/ (Dextrose) 50 mls @ 100 mls/hr IV NOW STA; Protocol Stop: 04/14/23 15:15 Last Infusion: 04/14/23 15:59 Dose: 0 mls/hr Documented By: Admin: 04/14/23 15:29 Dose: 100 mls/hr Documented By: LUPIS Sodium Chloride (Nss) 500 mls @ 999 mls/hr IV .Q31M ONE Stop: 04/14/23 15:49 Last Infusion: 04/14/23 17:00 Dose: 0 mls/hr Documented By: Admin: 04/14/23 15:29 Dose: 999 mls/hr Documented By: LUPIS Ketorolac Tromethamine (Ketorolac Tromethamine 15 Mg/Ml Vial) 15 mg IV NOW ONE Stop: 04/14/23 14:13 Last Admin: 04/14/23 14:17 Dose: 15 mg Documented By: LIZABETH Discharge Plan Visit Data Chief Complaint: Fall Stated Complaint: FALL, ANXIETY ED Provider: Clemente Nicole Discharge Problem: Acute metabolic encephalopathy, UTI (urinary tract infection) Patient Disposition: Admitted As Inpatient Discharge Instructions Interventions: ED Discharge Assessment Last Done: 04/14/23 18:06
[2023-04-14 12:39] LABS: Alanine Aminotransferase 5 U/L (7-52); Albumin Globulin Ratio 0.6 (0.9-2); Albumin Level 3.1 gm/dl (3.4-5.0); Alkaline Phosphatase 176 U/L (34-104); Anion Gap 8 (3-11); Aspartate Aminotransferase 15 U/L (13-39); BUN Creatinine Ratio 12.9 (10-20); Basophils # (auto) 0.02 K/uL (0.00-0.20); Basophils % (auto) 0.3 %; Bilirubin,Total 1.6 mg/dl (0.2-1.0); Blood Urea Nitrogen 11 mg/dl (6-23); Calcium 8.7 mg/dl (8.6-10.3); Carbon Dioxide 27 mmol/L (21-32); Chloride 96 mmol/L (98-107); Eosinophils # (auto) 0.14 K/uL (0.00-0.50); Eosinophils % (auto) 1.8 %; Est GFR (African American) 86.3 ml/min; Est GFR (Non-African American) 74.5 ml/min; Globulin 4.9 gm/dl (2.5-4.0); Glucose 117 mg/dl (70-99(Fasting)); Hematocrit (blood only) 27.2 % (37.0-47.0); Hemoglobin 8.5 g/dl (12.0-16.0); Immature Granulocytes # (auto) 0.02 K/uL (0.01-0.20); Immature Granulocytes % (auto) 0.3 %; Lymphocytes # (auto) 0.74 K/uL (1.20-3.40); Lymphocytes % (auto) 9.5 %; Mean Corpuscular Hemoglobin 20.2 pg (25.0-34.0); Mean Corpuscular Hgb Conc 31.3 g/dL (32.0-36.0); Mean Corpuscular Volume 64.6 fL (80.0-100.0); Monocytes # (auto) 0.73 K/uL (0.11-0.59); Monocytes % (auto) 9.3 %; Neutrophils # (auto) 6.16 K/uL (1.40-6.50); Neutrophils % (auto) 78.8 %; Nucleated RBC % (auto) 2.6 %; Potassium 3.9 mmol/L (3.5-5.1); RDW Coefficient of Variation 27.6 % (11.5-14.5); RDW Standard Deviation 61.2 fL (36.4-46.3); Red Blood Count 4.21 M/uL (4.20-5.40); Sodium 131 mmol/L (136-145); White Blood Count 7.81 K/ul (4.8-10.8)
[2023-04-14 12:45] LABS: Troponin I High Sensitivity 2.9 pg/ml (0-14)
[2023-04-14 12:55] LABS: INR 1.2 (0.9-1.1); Partial Thromboplastin Ratio 1.1; Partial Thromboplastin Time 31.7 Seconds (21.0-31.0); Prothrombin Time 13.5 Seconds (9.0-12.0)
[2023-04-14 13:03] LABS: Anisocytosis Present; Hypochromasia Present; Mean Platelet Volume 9.6 fL (9.4-12.4); Microcytosis Present; Platelet Count 315 K/uL (130-400); Polychromasia 1+; Schistocytes 1+; Target Cells 2+
[2023-04-14 13:13] LABS: Base Excess VBG 2.5 mEq/L; HCO3 VBG 28 mmol/L; Oxygen Saturation VBG < 60.0 %; PCO2 VBG 48 mmHg (38-50); PO2 VBG 33 mmHg; pH VBG 7.38 (7.36-7.41)
[2023-04-14 14:00] LABS: Appearance Urine Turbid (Clear); Bacteria Urine Automated 2+ (Negative); Bilirubin Urine Negative (Negative); Blood Urine 2+ (Negative); Cast Urine Automated 0 /lpf (0-5); Color Urine Dark Yellow; Glucose Urine UA Negative (Negative); Ketones Urine Negative (Negative); Leukocyte Esterase Urine 3+ (Negative); Nitrite Urine Negative (Negative); Protein Urine Trace (Negative); Specific Gravity Urine 1.008 (1.000-1.030); Urobilinogen Urine Positive (Negative); WBC Urine Automated >30 /hpf (0-5)
[2023-04-14] MEDS ORDERED: KETOROLAC TROMETHAMINE 15 MG/ML VIAL IV ONE (14:12)
[2023-04-14 14:18] LABS: Amphetamines+Metham, Urine Neg (Neg); Barbiturates, Urine Neg (Neg); Benzodiazepine, Urine Neg (Neg); Cocaine, Urine Neg (Neg); MDMA (Ecstacy), Urine Neg (Neg); Methadone, Urine Neg (Neg); Opiate, Urine Neg (Neg); Phencyclidine, Urine Neg (Neg)
--- NOTE | 2023-04-14 14:23 | CT Scan Report ---
CT head/brain wo con CLINICAL HISTORY: head trauma. +AC, AMS Technique: Contiguous axial CT images of the head were acquired from the base of the skull to the petra sony without intravenous contrast administration. Images were viewed in brain, subdural and bone windo ws. Automated dose lowering techniques and/or adjustment according to patient size were utilized for this exam. Comparison: Comparison is made to 03/20/2023 Findings: The ventricles, basal cisterns, and cerebral sulci are normal. There is no acute intracranial hemorrh age or evidence of acute territorial infarction. Neither mass effect, shift of the midline structures , nor abnormal extra-axial fluid collections are shown. Imaged portions of the paranasal sinuses and mastoid air cells are clear. The orbits appear normal. There are no acute fractures of the calvaria or scalp swelling. Impression: No acute intracranial hemorrhage, no evidence of acute territorial infarction or other acute intracra nial disease process. ACT 112: Negative or not required by law. Electronically signed by: Taiwo Francois M.D. 04/14/2023 2:20 PM
--- NOTE | 2023-04-14 14:30 | CT Scan Report ---
CT cervical spine wo con CLINICAL HISTORY: head trauma. +AC, AMS TECHNIQUE: Multidetector row helical CT of the cervical spine was performed without administration of intravenous contrast. Coronal and sagittal reformations were obtained. Automated dose lowering techn iques and/or adjustment according to patient size were utilized for this exam. Comparison: None available at the time of this dictation. FINDINGS: No acute fractures or subluxations are identified. Degenerative changes are seen in the visualized sp ine. Anterolisthesis of C5-C6 is unchanged from prior exam. Mediastinal lymph nodes are partially see n. IMPRESSION: Degenerative changes without evidence of acute bony injury. ACT 112: Negative or not required by law. Electronically signed by: Taiwo Francois M.D. 04/14/2023 2:28 PM
[2023-04-14] MEDS ORDERED: cefTRIAXone SODIUM 2,000 MG in DEXTROSE 5 % MINI-B 50 ML IV STA (14:46)
[2023-04-14] MEDS ORDERED: SODIUM CHLORIDE 0.9% 500 ML IV ONE (15:19)
--- NOTE | 2023-04-14 16:34 | History & Physical Report ---
Date of Service April 14, 2023 Assessment & Plan (1) Confusion: Plan: Weakness, delirium. ?Metabolic encephalopathy Patient endorses increased urination and some burning with peeing, and has an infected versus contaminated UA. UCx pending Also endorses worsened right posterior calf pain with ulcerations with increased erythema and no purulent discharge. DDx also includes cellulitis. - CT-H, CT-C spine without acute findings. No respiratory sx. Abd is nontender. - Ammonia is not elevated -Patient recently completed treatment on 04/09 for MSSA bacteremia with no vegetations noted on WU. Blood cultures are pending. If her repeat cultures returned positive, would need to scan her spine for potential sources of seeding. She endorses chronic back pain, but which has not changed recently (2) UTI (urinary tract infection): Plan: UTI With several days of dysuria, and patient thinks some polyuria. UCx pending Patient has a history of Rocephin sensitive Klebsiella UTI Distant history of ESBL Klebsiella in 2021, recent cultures have not shown extended resistance pattern. We will continue Rocephin for now, upgrade if needed based on culture speciation/sensitivity or if she clinically declines (3) Cellulitis: Plan: Multiple skin wounds on upper and lower extremities Right posterior calf is with 3 areas of ulceration, these have increased warmth/tenderness/erythema on admission consistent with cellulitis No purulence Continue Rocephin (4) Atrial fibrillation, chronic: Plan: History of A-fib Continue metoprolol Continue Eliquis Continue digoxin. Level pending No RVR on admission, rate is irregular but with rate 8090s. No chest pain Follow on PCU for availability of IV rate control if required (5) Bilateral leg pain: (6) Thalassemia: Plan: Anemia With history of beta thalassemia Hemoglobin remains at baseline on admit No clinical bleeding, trend daily (7) Cervical radiculopathy: (8) Chronic heart failure with preserved ejection fraction (HFpEF): Plan: Heart failure with preserved ejection fraction Relatively euvolemic, trace ankle edema. Home lasix changed to RAMIREZ daily - Denies orthopnea/dyspnea (9) GERD (gastroesophageal reflux disease): (10) Iron deficiency anemia: (11) Hypothyroidism: Plan Chronic stable issues: GERD: Continue PPI Restless legs: Continue ropinirole Hypothyroidism, continue Synthroid Hyponatremia: With poor p.o. intake, mildly decreased 131 on admission. Trended History of Present Illness Primary Care Provider: Cyndy Don MD 62-year-old female with a PMHx of encephalopathy, MSSA bacteremia, anxiety/adjustement disorder, JACEY, GERD, RLS who presents with fatigue, weakness, and confusion. On ER provider assessment patient appears very somnolent and was guarding airway but difficult to arouse at time of provider assessment patient is more alert but reports she is in much more pain than normal, has felt weak and unwell, and the back of her right leg is very painful and warm. She has also had some burning with urination in the last 2 to 3 days. She reports she feels very tired and is worried about being admitted due to her recent admission requiring prolonged antibiotics. She reports that she chronically has back pain all over, but this has not changed. She does not think she has had fevers, has felt warm and a little sweaty intermittently. She is not sure how long she has been getting worse for thinks her leg has been more warm and more tender for at least a couple of days. She endorses leg swelling, thinks that her legs are around their normal baseline size. She denies bleeding. Denies abdominal pain. Medical History: Reviewed Medications: Reviewed Surgical History: Reviewed Family history: Reviewed Allergies: Reviewed Social History: Reviewed Code Status: Full Allergies Allergy/AdvReac Type Severity Reaction Status Date / Time cely G-F 20 Allergy Severe CAN'T Verified 03/11/23 16:22 REMEMBER mushroom Allergy Intermediate RASH Verified 03/11/23 16:22 Home Medications Medication Instructions Recorded Confirmed Type acetaminophen 500 mg tablet 1,000 mg PO Q8 PRN Pain 10/11/22 04/01/23 History (Tylenol Extra Strength) cholecalciferol (vitamin D3) 50 50 mcg PO QAM 10/11/22 04/01/23 History mcg (2,000 unit) capsule (Vitamin D3) paadufzx-eec-pbtza acid 0.4 1 tab PO QAM 10/11/22 04/01/23 History mg-lycopene 300 mcg-lutein 250 mcg tablet (Centrum Silver) omeprazole 20 mg tablet,delayed 20 mg PO DAILY 10/11/22 04/01/23 History release polyethylene glycol 3350 17 gram 17 g PO BID PRN Constipation 10/11/22 04/01/23 History oral powder packet (Miralax) atorvastatin 10 mg tablet 10 mg PO HS #90 tabs 10/24/22 04/01/23 Rx buspirone 10 mg tablet 10 mg PO TID #270 tabs 10/24/22 04/01/23 Rx digoxin 125 mcg (0.125 mg) tablet 125 mcg PO QPM #90 tabs 10/24/22 04/01/23 Rx metoprolol succinate 100 mg 100 mg PO BID #180 tabs 10/24/22 04/01/23 Rx tablet,extended release 24 hr ropinirole 1 mg tablet 1 mg PO TID #270 tabs 10/24/22 04/01/23 Rx apixaban 5 mg tablet (Eliquis) 5 mg PO BID #180 tabs 10/30/22 04/01/23 Rx Wheelchair (Powered) (Power #1 ea 11/13/22 04/01/23 Rx Wheelchair) furosemide 20 mg tablet (Lasix) 40 mg PO QAM PRN edema #180 tabs 11/16/22 04/01/23 Rx ropinirole 0.25 mg tablet 0.25 mg PO HS #90 tabs 11/22/22 04/01/23 Rx doxepin 100 mg capsule 100 mg PO HS 01/23/23 04/01/23 History cyclobenzaprine 10 mg tablet 10 mg PO TID PRN muscle spasm #30 02/27/23 04/01/23 Rx tabs diclofenac sodium 1 % topical gel 4 g topical QID PRN rash #100 grams 02/27/23 04/01/23 Rx (Arthritis Pain (diclofenac)) levothyroxine 75 mcg tablet 75 mcg PO DAILY #90 tabs 02/27/23 04/01/23 Rx silver sulfadiazine 1 % topical 1 applic topical BID #20 grams 02/27/23 04/01/23 Rx cream hydroxyzine HCl 50 mg tablet 50 - 100 mg PO TID PRN anxiety 03/07/23 04/01/23 Rx #180 tabs duloxetine 60 mg capsule,delayed 60 mg PO AMHS 03/20/23 04/01/23 History release cetirizine 10 mg tablet 10 mg PO BID PRN itching 30 days 03/29/23 04/01/23 Rx #60 tabs collagenase clostridium histo. 250 1 applic EXT DAILY #30 grams 03/29/23 04/01/23 Rx unit/gram topical ointment (Santyl) cefazolin 1 gram intravenous 2 g IV TID 04/01/23 04/01/23 History solution cyanocobalamin (vitamin B-12) 1,000 mcg PO QAM 04/01/23 04/01/23 History 1,000 mcg capsule Past Med/Surg History Medical History (Updated 04/14/23 @ 16:41 by Misha Cristobal MD) Acute hyponatremia Anemia Anxiety Arthroplasty of knee (Unknown) "bilateral " Atrial fibrillation follows with [facility] Cardiology (Donna Osborne PA-C) dx a year ago. no cardioversions in the past. Atrial fibrillation with RVR Cellulitis hx Chronic heart failure with preserved ejection fraction (HFpEF) Constipation GERD (gastroesophageal reflux disease) occasional History of COVID-19 July 2020 treated at a hospital in [place] for several days. 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 unsure of cause. Pneumonia hx - "years ago" Poor historian RLS (restless legs syndrome) Scabies Sleep apnea hx -- since weightloss and gastric bypass surgery no problems with PORTILLO. Weight loss, unintentional Surgical History H/O gastric bypass History of bilateral hip replacements History of bilateral knee arthroplasty History of section History of cholecystectomy History of colonoscopy History of esophagogastroduodenoscopy (EGD) S/P revision of total hip Status post hip surgery R HIP REPLACEMENT REMOVED DUE TO INFX Family History Father Colorectal cancer Mother Diabetes Other FHx: throat cancer No family history of adverse response to anesthesia Denies family history of Ovarian cancer Prostate cancer Myocardial infarction Breast cancer Social History Smoking Status: Unknown if ever smoked Tobacco Type: Cigarettes Second Hand Exposure: No; Do You Dip or Chew Tobacco: No; Hx Alcohol Use: Yes Alcohol type: wine Hx Substance Use: No Preferred Language: Indian Communication Ability: Effective Visual Impairment: Partially Limited Brake Adjuster Required: No Beliefs That Will Affect Care: None marital status: Current Living Situation: Alone Current Living Situation Comment: lives alone in apartment, daughter checks on her How many Children do You have: 3 Feels Safe at Home: Yes Assistive Devices: Walker and Wheelchair Physical Exam Physical Exam: General: A&Ox3. NAD. Cooperative. HEENT: Atraumatic, normocephalic. Pulm: Diminished symmetrical chest rise. No increased work of breathing. No respiratory distress. Cardiac: Irregular rhythm, rate 80s90s. No murmur radial pulses intact and symmetrical. Abdominal: Obese nontender, nondistended, soft. BS present. Extremities: Right posterior calf with 3 areas of ulceration, surrounding warmth/erythema/tenderness asymmetrically increased compared to the left. Trace ankle edema bilaterally Results & Data Results & Data Vital Signs (Past 12 Hours) Vital Signs Temp Pulse Pulse Resp BP BP Pulse Ox 04/14/23 16:00 99 H 16 96 04/14/23 16:00 119/90 04/14/23 16:16 94 H 04/14/23 15:30 87 16 95 04/14/23 15:30 115/79 04/14/23 15:00 94 H 17 98 04/14/23 15:00 102/66 04/14/23 14:01 110 H 20 111/89 95 04/14/23 12:22 86 16 88/53 L 94 04/14/23 12:19 103 H 04/14/23 12:17 91 04/14/23 11:26 36.7 C 109 H 20 109/72 98 O2 Del Method 04/14/23 16:00 Room Air 04/14/23 16:00 04/14/23 16:16 04/14/23 15:30 Room Air 04/14/23 15:30 04/14/23 15:00 Room Air 04/14/23 15:00 04/14/23 14:01 Room Air 04/14/23 12:22 Room Air 04/14/23 12:19 04/14/23 12:17 Room Air 04/14/23 11:26 Room Air PG Care Time/CCT Total # of Minutes Spent Total Time Spent with Patient: Total time spent is greater than 50% in coordination of care (as documented) at patient's floor/unit and/or counseling patient: Coding Level of Care Code 90766 INT INP/OBS CARE 3/75MIN Diagnoses Confusion R41.0 UTI (urinary tract infection) N39.0 Cellulitis L03.119 Laterality: unspecified laterality Site of cellulitis: extremity Site of cellulitis of extremity: lower extremity Atrial fibrillation, chronic I48.20 Bilateral leg pain M79.604; M79.605 Thalassemia D56.9 Cervical radiculopathy M54.12 Chronic heart failure with preserved ejection fraction (HFpEF) I50.32 GERD (gastroesophageal reflux disease) K21.9 Iron deficiency anemia D50.9 Hypothyroidism E03.9 (3) Cellulitis Laterality: unspecified laterality Site of cellulitis: extremity Site of cellulitis of extremity: lower extremity Qualified Code(s): L03.119 - Cellulitis of unspecified part of limb
[2023-04-14] MEDS ORDERED: ONDANSETRON INJ 2 MG/ML 2 ML VIAL IV PRN (18:29)
[2023-04-14] MEDS: busPIRone 5 MG TAB PO SCH (20:05)
[2023-04-14] MEDS: ATORVASTATIN 10 MG TAB PO SCH (20:05)
[2023-04-14] MEDS: DIGOXIN 0.125 MG TAB PO SCH (20:05)
[2023-04-14] MEDS: DULoxetine HCL 60 MG CAP PO SCH (20:06)
[2023-04-14] MEDS: METOPROLOL SUCC 50MG EXT REL TAB PO SCH (20:06)
[2023-04-14] MEDS: APIXABAN 5 MG TABLET PO SCH (20:06)
[2023-04-14] MEDS: DOXEPIN HCL 50 MG CAPSULE PO SCH (20:07)
[2023-04-14] MEDS: rOPINIRole HCL 1 MG TABLET PO SCH (20:07)
[2023-04-14] MEDS: rOPINIRole HCL 0.25 MG TABLET PO SCH (20:07)
[2023-04-15] MEDS: LEVOTHYROXINE SODIUM 75 MCG TABLET PO SCH (05:34)
[2023-04-15 06:23] LABS: Basophils # (auto) 0.02 K/uL (0.00-0.20); Basophils % (auto) 0.4 %; Eosinophils # (auto) 0.15 K/uL (0.00-0.50); Eosinophils % (auto) 3.2 %; Hematocrit (blood only) 25.8 % (37.0-47.0); Hemoglobin 8.1 g/dl (12.0-16.0); Immature Granulocytes # (auto) 0.02 K/uL (0.01-0.20); Immature Granulocytes % (auto) 0.4 %; Lymphocytes # (auto) 0.77 K/uL (1.20-3.40); Lymphocytes % (auto) 16.3 %; Mean Corpuscular Hemoglobin 20.1 pg (25.0-34.0); Mean Corpuscular Hgb Conc 31.4 g/dL (32.0-36.0); Mean Corpuscular Volume 64.2 fL (80.0-100.0); Monocytes # (auto) 0.53 K/uL (0.11-0.59); Monocytes % (auto) 11.2 %; Neutrophils # (auto) 3.24 K/uL (1.40-6.50); Neutrophils % (auto) 68.5 %; Nucleated RBC # (auto) 0.14 K/uL (0.00-0.12); RDW Coefficient of Variation 27.3 % (11.5-14.5); RDW Standard Deviation 60.9 fL (36.4-46.3); Red Blood Count 4.02 M/uL (4.20-5.40); White Blood Count 4.73 K/ul (4.8-10.8)
[2023-04-15 06:38] LABS: BUN Creatinine Ratio 13.2 (10-20); Calcium 8.1 mg/dl (8.6-10.3); Creatinine Clr Calc Pharmacy 85.6 ml/min; Est GFR (African American) 98.8 ml/min; Est GFR (Non-African American) 85.3 ml/min; Potassium 4.2 mmol/L (3.5-5.1)
[2023-04-15 07:34] LABS: Mean Platelet Volume 9.2 fL (9.4-12.4); Platelet Count 309 K/uL (130-400)
[2023-04-15 07:38] LABS: Hypochromasia Present; Polychromasia 1+; Target Cells 2+
[2023-04-15] MEDS: APIXABAN 5 MG TABLET PO SCH ×2 (08:57→21:43)
[2023-04-15] MEDS: PANTOprazole 40 MG TAB PO SCH (08:57)
[2023-04-15] MEDS: busPIRone 5 MG TAB PO SCH ×3 (08:59→21:43)
[2023-04-15] MEDS: DULoxetine HCL 60 MG CAP PO SCH ×2 (09:02→21:43)
[2023-04-15] MEDS: rOPINIRole HCL 1 MG TABLET PO SCH ×3 (09:02→21:41)
[2023-04-15] MEDS: FUROSEMIDE 40 MG TAB PO SCH (10:08)
[2023-04-15] MEDS: METOPROLOL SUCC 50MG EXT REL TAB PO SCH ×2 (10:09→21:41)
[2023-04-15] MEDS: HYDROmorphone INJ 0.5 MG/0.5 ML SYR IV PRN ×2 (12:32→19:41)
--- NOTE | 2023-04-15 12:38 | Hospitalist Progress Note ---
Date of Service April 15, 2023 Assessment & Plan (1) Confusion: Plan: Acute metabolic encephalopathy present on admission. Now resolved . (2) UTI (urinary tract infection): Plan: Gram-negative bacilli isolated. Final identification and sensitivities pending. Continue intravenous Rocephin, day 2 (3) Cellulitis: Plan: Multiple chronic appearing skin wounds on upper and lower extremities. Local care. No purulence. Currently on intravenous Rocephin (4) Atrial fibrillation, chronic: Plan: Rate controlled. Continue current medications along with Eliquis. Telemetry (5) Bilateral leg pain: Plan: Chronic. Symptomatic management (6) Thalassemia: Plan: By history. No intervention necessary at this time. Serial labs (7) Chronic heart failure with preserved ejection fraction (HFpEF): Plan: No overt CHF at this time. Monitor intake and output. Continue current medical management (8) GERD (gastroesophageal reflux disease): Plan: Stable. Continue PPI therapy Plan Hopeful discharge to home tomorrow, April 16 Admission and Anticipated Discharge Date Admission Date: April 14, 2023 Subjective Alert and oriented. Anxious to go home. Urine culture growing gram-negative bacilli. Final identification pending. Blood culture final results pending. She is on intravenous Rocephin, day 2. Metabolic encephalopathy has resolved. Blood pressure is on the low side but she is asymptomatic. Hopefully she can go home tomorrow, April 16 Review of Systems Review of Systems: Constitutional-no fever or chills ENT-no blurred vision, no double vision, no epistaxis, no sore throat Respiratory-no cough, no wheezing, no shortness of breath Cardiac-no palpitations, no chest pain, no syncope GI-no nausea, vomiting, diarrhea, melena, hematochezia -no urinary retention, no urinary incontinence, no dysuria, no hematuria Musculoskeletal-no joint pain, no muscle tenderness Skin-no bruising, no rashes, no pruritus Neuro-no isolated weakness, no paresthesia, no weakness Psych-no depression, no anxiety Physical Exam Physical Exam: General-alert and oriented x3, no fevers, no chills HEENT-head atraumatic and normocephalic, TMs intact bilaterally, pupils equal and reactive to light, extraocular muscles intact Neck-no lymphadenopathy or thyromegaly, trachea midline Chest-clear to auscultation percussion. No rales wheezing or rhonchi Cardiac-irregular rhythm, controlled rate, normal S1 and S2 Abdomen-normal bowel sounds, nontender, no hepatosplenomegaly Extremities-no cyanosis, clubbing, or edema Neuro-cranial nerves II through XII intact, motor and sensory function within normal limits, strength symmetrical , no focal deficits Psych-normal affect, normal mood Results & Data Results & Data Vital Signs (Past 12 Hours) Vital Signs Temp Pulse Resp BP Pulse Ox O2 Del Method 04/15/23 12:06 37.6 C 90 22 124/92 96 Room Air 04/15/23 08:28 37.0 C 85 22 98/57 L 95 Room Air 04/15/23 02:23 36.5 C 95 H 18 117/57 L 95 Room Air Laboratory Results 04/15/23 05:54 04/15/23 05:54 PG Care Time/CCT Total # of Minutes Spent Total Time Spent with Patient: Total time spent is greater than 50% in coordination of care (as documented) at patient's floor/unit and/or counseling patient: Coding Level of Care Code 28568 SUB INP/OBS CARE 3/50MIN Diagnoses Confusion R41.0 UTI (urinary tract infection) N39.0 Cellulitis L03.119 Laterality: unspecified laterality Site of cellulitis: extremity Site of cellulitis of extremity: lower extremity Atrial fibrillation, chronic I48.20 Bilateral leg pain M79.604; M79.605 Thalassemia D56.9 Chronic heart failure with preserved ejection fraction (HFpEF) I50.32 GERD (gastroesophageal reflux disease) K21.9 (3) Cellulitis Laterality: unspecified laterality Site of cellulitis: extremity Site of cellulitis of extremity: lower extremity Qualified Code(s): L03.119 - Cellulitis of unspecified part of limb
[2023-04-15] MEDS ORDERED: cefTRIAXone SODIUM 2,000 MG in DEXTROSE 5 % MINI-B 50 ML IV SCH (15:00)
[2023-04-15] MEDS: DIGOXIN 0.125 MG TAB PO SCH (15:50)
[2023-04-15] MEDS: rOPINIRole HCL 0.25 MG TABLET PO SCH (21:41)
[2023-04-15] MEDS: DOXEPIN HCL 50 MG CAPSULE PO SCH (21:43)
[2023-04-15] MEDS: ATORVASTATIN 10 MG TAB PO SCH (21:43)
[2023-04-16] MEDS: LEVOTHYROXINE SODIUM 75 MCG TABLET PO SCH (05:37)
[2023-04-16] MEDS: HYDROmorphone INJ 0.5 MG/0.5 ML SYR IV PRN ×2 (05:43→11:16)
--- NOTE | 2023-04-16 06:51 | Electrocardiogram Report ---
Test Reason : Blood Pressure : / mmHG Vent. Rate : 104 BPM Atrial Rate : 000 BPM P-R Int : 000 ms QRS Dur : 094 ms QT Int : 342 ms P-R-T Axes : 000 074 008 degrees QTc Int : 449 ms Atrial fibrillation with rapid ventricular response Cannot rule out Anterior infarct (cited on or before 14-APR-2023) Abnormal ECG When compared with ECG of 20-MAR-2023 13:59, Vent. rate has decreased BY 76 BPM Borderline criteria for Inferior infarct are no longer Present Confirmed by Jf James ([id number]) on 04/16/2023 6:50:48 AM Referred By: REFERRED SELF Confirmed By:Jf James
[2023-04-16] MEDS: DULoxetine HCL 60 MG CAP PO SCH (07:59)
[2023-04-16] MEDS: APIXABAN 5 MG TABLET PO SCH (08:00)
[2023-04-16] MEDS: busPIRone 5 MG TAB PO SCH ×2 (08:00→14:30)
[2023-04-16] MEDS: METOPROLOL SUCC 50MG EXT REL TAB PO SCH (08:01)
[2023-04-16] MEDS: PANTOprazole 40 MG TAB PO SCH (08:01)
[2023-04-16] MEDS: rOPINIRole HCL 1 MG TABLET PO SCH ×2 (08:01→14:30)
[2023-04-16] MEDS: FUROSEMIDE 40 MG TAB PO SCH (08:02)
[2023-04-16 08:12] LABS: Basophils # (auto) 0.03 K/uL (0.00-0.20); Basophils % (auto) 0.4 %; Eosinophils # (auto) 0.18 K/uL (0.00-0.50); Eosinophils % (auto) 2.5 %; Hematocrit (blood only) 27.4 % (37.0-47.0); Hemoglobin 8.8 g/dl (12.0-16.0); Immature Granulocytes # (auto) 0.03 K/uL (0.01-0.20); Immature Granulocytes % (auto) 0.4 %; Lymphocytes # (auto) 1.48 K/uL (1.20-3.40); Lymphocytes % (auto) 20.4 %; Mean Corpuscular Hemoglobin 20.4 pg (25.0-34.0); Mean Corpuscular Hgb Conc 32.1 g/dL (32.0-36.0); Mean Corpuscular Volume 63.4 fL (80.0-100.0); Monocytes # (auto) 0.85 K/uL (0.11-0.59); Monocytes % (auto) 11.7 %; Neutrophils # (auto) 4.69 K/uL (1.40-6.50); Neutrophils % (auto) 64.6 %; Nucleated RBC # (auto) 0.14 K/uL (0.00-0.12); Nucleated RBC % (auto) 1.9 %; RDW Coefficient of Variation 28.1 % (11.5-14.5); RDW Standard Deviation 61.8 fL (36.4-46.3); Red Blood Count 4.32 M/uL (4.20-5.40); White Blood Count 7.26 K/ul (4.8-10.8)
[2023-04-16 08:18] LABS: Platelet Count 333 K/uL (130-400)
[2023-04-16 08:33] LABS: BUN Creatinine Ratio 14.7 (10-20); Calcium 8.1 mg/dl (8.6-10.3); Creatinine Clr Calc Pharmacy 95.8 ml/min; Est GFR (African American) 110.2 ml/min; Est GFR (Non-African American) 95.1 ml/min; Potassium 4.3 mmol/L (3.5-5.1)
[2023-04-16 08:36] LABS: Anisocytosis Present; Polychromasia 1+; Target Cells 2+
[2023-04-16] MEDS ORDERED: CIPROFLOXACIN / D5W 400 MG/200 ML BAG IV SCH (09:30)
--- NOTE | 2023-04-16 14:10 | Discharge Summary ---
Date of Service April 16, 2023 Admission HPI Per Admitting Provider 62-year-old female with a PMHx of encephalopathy, MSSA bacteremia, anxiety/adjustement disorder, JACEY, GERD, RLS who presents with fatigue, weakness, and confusion. On ER provider assessment patient appears very somnolent and was guarding airway but difficult to arouse at time of provider assessment patient is more alert but reports she is in much more pain than normal, has felt weak and unwell, and the back of her right leg is very painful and warm. She has also had some burning with urination in the last 2 to 3 days. She reports she feels very tired and is worried about being admitted due to her recent admission requiring prolonged antibiotics. She reports that she chronically has back pain all over, but this has not changed. She does not think she has had fevers, has felt warm and a little sweaty intermittently. She is not sure how long she has been getting worse for thinks her leg has been more warm and more tender for at least a couple of days. She endorses leg swelling, thinks that her legs are around their normal baseline size. She denies bleeding. Denies abdominal pain. Medical History: Reviewed Medications: Reviewed Surgical History: Reviewed Family history: Reviewed Allergies: Reviewed Social History: Reviewed Code Status: Full Principal Diagnosis Acute metabolic encephalopathy, Serratia urinary tract infection Discharge Exam General-alert and oriented x3, no fevers, no chills HEENT-head atraumatic and normocephalic, TMs intact bilaterally, pupils equal and reactive to light, extraocular muscles intact Neck-no lymphadenopathy or thyromegaly, trachea midline Chest-clear to auscultation percussion. No rales wheezing or rhonchi Cardiac-irregular rhythm, controlled rate, normal S1 and S2 Abdomen-normal bowel sounds, nontender, no hepatosplenomegaly Extremities-no cyanosis, clubbing, or edema Neuro-cranial nerves II through XII intact, motor and sensory function within normal limits, strength symmetrical , no focal deficits Psych-normal affect, normal mood Discharge Data Allergies Allergy/AdvReac Type Severity Reaction Status Date / Time cely G-F 20 Allergy Severe CAN'T Verified 04/14/23 16:57 REMEMBER mushroom Allergy Intermediate RASH Verified 04/14/23 16:57 Consultations 04/14/23 15:08 ED Decision to Admit Stat Ordered Studies 04/14/23 12:29 CT cervical spine wo con Stat CT head/brain wo con Stat Hospital Course (1) Confusion: Acute metabolic encephalopathy present on admission. Now resolved . (2) UTI (urinary tract infection): Serratia isolated. Antibiotic switched to ciprofloxacin. (3) Cellulitis: Multiple chronic appearing skin wounds on upper and lower extremities. Local care. No purulence. Treated while hospitalized with intravenous Rocephin (4) Atrial fibrillation, chronic: Rate controlled. Continue current medications along with Eliquis. Telemetry (5) Bilateral leg pain: Chronic. Symptomatic management (6) Thalassemia: By history. No intervention necessary at this time. Serial labs (7) Chronic heart failure with preserved ejection fraction (HFpEF): No overt CHF at this time. Monitor intake and output. Continue current medical management (8) GERD (gastroesophageal reflux disease): Stable. Continue PPI therapy Plan Home today, April 16, on Cipro Total Time Total Time Spent Total Time Spent (In Minutes): 45 minutes Discharge Plan Discharge Items Patient Disposition: Home - Self-Care Reason For Visit: WEAKNESS, ?UTI, CELLULITIS, RECENT MSSA BACTEREMIA Discharge Diagnosis: Serratia UTI, acute metabolic encephalopathy Activity: Resume your previous activity Non-emergency contact: Primary Care Provider Call non-emergency contact if: your symptoms worsen Follow-up/Referrals: Cyndy Don MD [Primary Care Provider] - Diet: Regular Addtl Attending Provider Instructions: Take Cipro for 5 more days Pending Studies at Discharge: No Stand-Alone Forms: My ams AG, Smoking Cessation Medications and DC Order Prescriptions: New ciprofloxacin HCl [Cipro] 500 mg tablet 500 mg PO BID Qty: 10 0RF Continued atorvastatin 10 mg tablet 10 mg PO HS Qty: 90 3RF buspirone 10 mg tablet 10 mg PO TID Qty: 270 3RF digoxin 125 mcg (0.125 mg) tablet 125 mcg PO QPM Qty: 90 3RF Rx Instructions: hold for pulse < 60 metoprolol succinate 100 mg tablet extended release 24 hr 100 mg PO BID Qty: 180 3RF ropinirole 1 mg tablet 1 mg PO TID Qty: 270 3RF Eliquis 5 mg tablet 5 mg PO BID Qty: 180 3RF Rx Instructions: Filled 04/10/23 furosemide [Lasix] 20 mg tablet 40 mg PO QAM PRN (Reason: edema) Qty: 180 3RF ropinirole 0.25 mg tablet 0.25 mg PO HS Qty: 90 3RF hydroxyzine HCl 50 mg tablet 50 - 100 mg PO TID PRN (Reason: anxiety) Qty: 180 3RF diclofenac sodium [Arthritis Pain (diclofenac)] 1 % gel 4 g topical QID PRN (Reason: rash) Qty: 100 0RF cyclobenzaprine 10 mg tablet 10 mg PO TID PRN (Reason: muscle spasm) Qty: 30 0RF silver sulfadiazine 1 % cream 1 applic topical BID Qty: 20 0RF Rx Instructions: apply a 1.5 mm thickness levothyroxine 75 mcg tablet 75 mcg PO DAILY Qty: 90 3RF cefazolin 1 gram recon soln 2 g IV TID Rx Instructions: [facility]- CONTINUE FOR 10 DAYS Centrum Silver 0.4 mg-300 mcg- 250 mcg Tablet 1 tab PO QAM cholecalciferol (vitamin D3) [Vitamin D3] 50 mcg (2,000 unit) Capsule 50 mcg PO QAM polyethylene glycol 3350 [Miralax] 17 gram powder in packet 17 g PO BID PRN (Reason: Constipation) acetaminophen [Tylenol Extra Strength] 500 mg tablet 1,000 mg PO Q8 PRN (Reason: Pain) omeprazole 20 mg tablet,delayed release (DR/EC) 20 mg PO DAILY cyanocobalamin (vitamin B-12) 1,000 mcg capsule 1,000 mcg PO QAM Patient Comments: [facility] PT STATES SHE IS TO TAKE, BUT IT DOES NO GOOD SINCE GASTRIC BYPASS- OF NOTE doxepin 100 mg capsule 100 mg PO HS duloxetine 60 mg capsule,delayed release(DR/EC) 60 mg PO AMHS Santyl 250 unit/gram Ointment 1 applic EXT DAILY Qty: 30 0RF Rx Instructions: Apply to wounds cetirizine 10 mg tablet 10 mg PO BID PRN (Reason: itching) 30 Days Qty: 60 0RF Discharge Orders: Discharge Order (Routine); Ordered 04/16/23 Ordered By: Farhat Alicea Admission Data Admit Date/Time: 04/14/23 16:50 Attending Provider: Farhat Alicea Admit Provider: Misha Cristobal Primary Care Provider: Cyndy Don Other Providers: Misha Cristobal Coding Level of Care Code 72613 INP/OBS DISCH >30 MIN Diagnoses Confusion R41.0 UTI (urinary tract infection) N39.0 Cellulitis L03.119 Laterality: unspecified laterality Site of cellulitis: extremity Site of cellulitis of extremity: lower extremity Atrial fibrillation, chronic I48.20 Bilateral leg pain M79.604; M79.605 Thalassemia D56.9 Chronic heart failure with preserved ejection fraction (HFpEF) I50.32 GERD (gastroesophageal reflux disease) K21.9
[2023-04-17 10:58] LABS: Marijuana Quant, GCMS Urine 186 ng/mL (<5)
== END 2023-04-16 16:13 | disposition home or self-care (01) ==
LOC: ED 11:14 → 2E 16:50 → INTOOBSV 16:50 → SUATTDRO 16:50 → 2E 18:06
DX: G93.41 Metabolic encephalopathy; K21.9 Gastro-esophageal reflux disease without esophagitis; M79.604 Pain in right leg; N39.0 Urinary tract infection, site not specified; I48.20 Chronic atrial fibrillation, unspecified; L03.119 Cellulitis of unspecified part of limb; D56.9 Thalassemia, unspecified; M79.605 Pain in left leg; I50.32 Chronic diastolic (congestive) heart failure

== ENCOUNTER 2023-06-19 16:43 | Inpatient (IN) ==
[2023-06-19] MEDS ORDERED: ceFAZolin 3,000 MG in DEXTROSE 5% 50 ML IV STA (19:01)
--- NOTE | 2023-06-19 19:07 | Emergency Department Note ---
Impression & Plan Osteomyelitis of right femur, Anemia ED Provider Note NAME: LAURIE HAMILTON AGE: 63 SEX: F : 1960 ARRIVES VIA: Walk-In INFORMANT: Patient ED PROVIDER(S): Alverto Stiles DO CHIEF COMPLAINT: right hip infection HPI: Patient is a 63-year-old female who presents to the ER for right hip infection. She notes that she follows with [facility] and had a surgery done this past month. She was at [facility] for rehab and they were not treating her right let her sit in her own stool. She signed out AMA. She has not had IV antibiotics for 2 days. She was instructed to come in by her PCP for admission and IV antibiotics. She denies any headache or change in vision. No chest pain or shortness of breath. No nausea, vomiting, or diarrhea. Chronic pain in the right hip. ADDITIONAL HISTORY OBTAINED: Per HPI Chronic Medical/Social Conditions Affecting Care: Per HPI PAST MEDICAL HISTORY:See Below PAST SURGICAL HISTORY:See Below FAMILY HISTORY:See Below SOCIAL HISTORY:See Below HOME MEDICATIONS:See Below ALLERGIES:See Below VITALS:See Below PHYSICAL EXAMINATION: GENERAL: Sitting up in bed, alert, well appearing, well nourished, no distress, non-toxic EYE EXAM: normal conjunctiva. OROPHARYNX: no exudate, no erythema, lips, buccal mucosa, and tongue normal and mucous membranes are moist NECK: supple, no nuchal rigidity, no adenopathy, non-tender LUNGS: Clear to auscultation. Normal chest wall mechanics HEART: no murmurs, S1 normal and S2 normal ABDOMEN: abdomen soft, non-tender, normo-active bowel sounds, no masses, no rebound or guarding. UPPER EXTREMITIES: upper extremities are grossly normal. LOWER EXTREMITIES: Incisions appear to be clean and dry over the right hip. NEURO EXAM: Normal sensorium, cranial nerves II-XII grossly intact, normal speech, no gross weakness of arms. MEDICAL DECISION MAKING: Patient is a 63-year-old female who presents ER for the above-stated complaint. IV was established blood work is obtained. Labs show no significant leukocytosis. Mild anemia at 8.2. BMP with a hyponatremia 127. LFTs bilirubin was unremarkable. Discussed case with hospitalist for further evaluation management treatment patient was given 3 g of IV Ancef per her external records at bedside from [facility]. Patient was admitted for further workup to the hospitalist service Dr. Ramirez. Consults/Care Managements Discussions: Per MDM Triage Nursing notes reviewed. Limited review of prior medical records performed Vital Signs: reviewed and remarkable for tachy Differential diagnosis: Infection, dehydration, metabolic abnormality, hypo/hyperglycemia, electrolyte disturbance, anemia, hypoxia, cardiac sources, intracerebral event, toxicologic, neurologic, as well as other pathologies. ER treatment provided: See below Diagnostics interpreted by me include EKG and cardiac monitoring as listed below: -Cardiac Monitoring: An order was placed for continuous cardiac monitoring. The monitor shows a rate of 110 with sinus rhythm. -ECG: none -Laboratory studies:Interpreted by me as stated above in MDM and shown below. Imaging studies: Xrays: As interpreted by me: none CTs show: none Procedures:none Critical Care: None Past Med/Surg History Medical History (Updated 06/19/23 @ 22:59 by Alverto Stiles DO) Atrial fibrillation, chronic Hypothyroidism Scabies Atrial fibrillation with RVR Poor historian History of COVID-19 July 2020 treated at a hospital in [place] several days. 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 Atrial fibrillation follows with [facility]iology (Donna Osborne PA-C) dx a year ago. no cardioversions in the past. Acute hyponatremia Pneumonia hx - "years ago" Anemia Cellulitis hx Iron deficiency anemia Migraines RLS (restless legs syndrome) GERD (gastroesophageal reflux disease) occasional Chronic heart failure with preserved ejection fraction (HFpEF) Constipation PE (pulmonary embolism) 10+ years ago. unsure of cause. Cervical radiculopathy Thalassemia (Unknown) Arthroplasty of knee (Unknown) "bilateral " Surgical History History of section S/P revision of total hip History of bilateral knee arthroplasty History of esophagogastroduodenoscopy (EGD) History of colonoscopy History of cholecystectomy Status post hip surgery R HIP REPLACEMENT REMOVED DUE TO INFX History of bilateral hip replacements H/O gastric bypass Family History Father Colorectal cancer Mother Diabetes Other FHx: throat cancer No family history of adverse response to anesthesia Denies family history of Ovarian cancer Prostate cancer Myocardial infarction Breast cancer Social History Smoking Status: Never smoker Tobacco Type: Cigarettes Second Hand Exposure: No; Do You Dip or Chew Tobacco: No; Hx Alcohol Use: Yes Alcohol type: wine Hx Substance Use: No Preferred Language: Israeli Communication Ability: Effective Visual Impairment: Partially Limited Practice Support Specialist Required: No Beliefs That Will Affect Care: None marital status: Current Living Situation: Alone Current Living Situation Comment: lives alone in apartment, daughter checks on her How many Children do You have: 3 Feels Safe at Home: Yes Assistive Devices: Walker and Wheelchair Allergies Allergies Allergy/AdvReac Type Severity Reaction Status Date / Time hylan G-F 20 Allergy Severe CAN'T Verified 06/19/23 20:27 REMEMBER mushroom Allergy Intermediate RASH Verified 06/19/23 20:27 Home Meds Home Medications Medication Instructions Recorded Confirmed acetaminophen 500 mg tablet 1,000 mg PO Q8 Pain 10/11/22 06/19/23 (Tylenol Extra Strength) [id number] acid 0.4 1 tab PO QAM 10/11/22 06/19/23 mg-lycopene 300 mcg-lutein 250 mcg tablet (Centrum Silver) omeprazole 20 mg tablet,delayed 20 mg PO DAILY 10/11/22 06/19/23 release polyethylene glycol 3350 17 gram 17 g PO BID PRN Constipation 10/11/22 06/19/23 oral powder packet (Miralax) doxepin 100 mg capsule 100 mg PO HS 01/23/23 06/19/23 cyanocobalamin (vitamin B-12) 1,000 mcg PO QAM 04/01/23 06/19/23 1,000 mcg capsule Cefazolin Sodium 2 g IV TID 06/19/23 06/19/23 apixaban 5 mg tablet (Eliquis) 5 mg PO BID 06/19/23 06/19/23 ascorbic acid (vitamin C) 500 mg 500 mg PO DAILY 06/19/23 06/19/23 tablet (Vitamin C) cholecalciferol (vitamin D3) 125 125 mcg PO DAILY 06/19/23 06/19/23 mcg (5,000 unit) tablet (Vitamin D3) duloxetine 30 mg capsule,delayed 30 mg PO DAILY 06/19/23 06/19/23 release furosemide 20 mg tablet (Lasix) 20 mg PO QAM PRN edema 06/19/23 06/19/23 guaifenesin 600 mg tablet, 600 mg PO Q12H 06/19/23 06/19/23 extended release 12 hr (Mucinex) melatonin 10 mg tablet 20 mg PO HS 06/19/23 06/19/23 metoprolol succinate 50 mg 50 mg PO BID 06/19/23 06/19/23 tablet,extended release 24 hr oxycodone 10 mg tablet 10 mg PO Q4H PRN .severe pain 06/19/23 06/19/23 oxycodone 5 mg tablet 5 mg PO Q4H PRN .Pain 4-6 06/19/23 06/19/23 sennosides 8.6 mg-docusate sodium 2 tab-cap PO BID 06/19/23 06/19/23 50 mg tablet (Senna Plus) zinc 50 mg tablet 50 mg PO DAILY 06/19/23 06/19/23 Previous Rx's Medication Instructions Recorded buspirone 10 mg tablet 10 mg PO TID #270 tabs 10/24/22 digoxin 125 mcg (0.125 mg) tablet 125 mcg PO QPM #90 tabs 10/24/22 ropinirole 0.25 mg tablet 0.25 mg PO HS #90 tabs 11/22/22 cyclobenzaprine 10 mg tablet 10 mg PO TID PRN muscle spasm #30 02/27/23 tabs levothyroxine 75 mcg tablet 75 mcg PO DAILY #90 tabs 02/27/23 hydroxyzine HCl 50 mg tablet 50 - 100 mg (1 - 2 x 50 mg) PO TID 03/07/23 PRN anxiety #180 tabs Results & Data (ED) Vital Signs Vital Signs - 24 hr 06/19/23 17:04 06/19/23 19:38 06/19/23 19:38 Temperature 36.6 C Temperature Source Temporal Artery Scan Pulse Rate 110 H 94 H Respiratory Rate 18 24 Respiratory Effort / Characteristics Non-Labored Respiratory Depth Normal Blood Pressure 118/88 Blood Pressure Mean 97 Pulse Oximetry 98 Oxygen Delivery Method Room Air Sepsis Recent Fever Within 48 Hours No Sepsis New/Unexplained Change in Mental Status No Sepsis Action Taken by Nursing No Action Required 06/19/23 19:40 06/19/23 19:46 06/19/23 19:50 Temperature Temperature Source Pulse Rate 103 H 103 H Respiratory Rate 16 21 Respiratory Effort / Characteristics Respiratory Depth Blood Pressure Blood Pressure Mean Pulse Oximetry 97 Oxygen Delivery Method Room Air Sepsis Recent Fever Within 48 Hours Sepsis New/Unexplained Change in Mental Status Sepsis Action Taken by Nursing 06/19/23 20:00 06/19/23 20:01 06/19/23 20:01 Temperature Temperature Source Pulse Rate 115 H 106 H Respiratory Rate 15 21 Respiratory Effort / Characteristics Respiratory Depth Blood Pressure 106/56 L Blood Pressure Mean 73 Pulse Oximetry Oxygen Delivery Method Sepsis Recent Fever Within 48 Hours Sepsis New/Unexplained Change in Mental Status Sepsis Action Taken by Nursing 06/19/23 20:10 06/19/23 20:20 06/19/23 20:30 Temperature Temperature Source Pulse Rate 107 H 100 H 94 H Respiratory Rate 15 15 18 Respiratory Effort / Characteristics Respiratory Depth Blood Pressure Blood Pressure Mean Pulse Oximetry Oxygen Delivery Method Sepsis Recent Fever Within 48 Hours Sepsis New/Unexplained Change in Mental Status Sepsis Action Taken by Nursing 06/19/23 20:31 06/19/23 20:31 06/19/23 20:40 Temperature Temperature Source Pulse Rate 99 H 107 H Respiratory Rate 15 20 Respiratory Effort / Characteristics Respiratory Depth Blood Pressure 127/74 Blood Pressure Mean 83 Pulse Oximetry Oxygen Delivery Method Sepsis Recent Fever Within 48 Hours Sepsis New/Unexplained Change in Mental Status Sepsis Action Taken by Nursing 06/19/23 20:50 06/19/23 21:00 06/19/23 21:10 Temperature Temperature Source Pulse Rate 112 H 100 H 105 H Respiratory Rate 23 18 15 Respiratory Effort / Characteristics Respiratory Depth Blood Pressure Blood Pressure Mean Pulse Oximetry Oxygen Delivery Method Sepsis Recent Fever Within 48 Hours Sepsis New/Unexplained Change in Mental Status Sepsis Action Taken by Nursing 06/19/23 21:20 06/19/23 21:30 06/19/23 21:38 Temperature Temperature Source Pulse Rate 102 H 116 H 134 H Respiratory Rate 22 21 18 Respiratory Effort / Characteristics Respiratory Depth Blood Pressure Blood Pressure Mean Pulse Oximetry Oxygen Delivery Method Sepsis Recent Fever Within 48 Hours Sepsis New/Unexplained Change in Mental Status Sepsis Action Taken by Nursing 06/19/23 21:38 06/19/23 21:40 06/19/23 21:50 Temperature Temperature Source Pulse Rate 114 H 111 H Respiratory Rate 18 20 Respiratory Effort / Characteristics Respiratory Depth Blood Pressure 140/92 Blood Pressure Mean 122 Pulse Oximetry Oxygen Delivery Method Sepsis Recent Fever Within 48 Hours Sepsis New/Unexplained Change in Mental Status Sepsis Action Taken by Nursing 06/19/23 22:00 06/19/23 22:00 06/19/23 22:10 Temperature Temperature Source Pulse Rate 96 H 100 H Respiratory Rate 16 20 Respiratory Effort / Characteristics Respiratory Depth Blood Pressure 118/77 Blood Pressure Mean 95 Pulse Oximetry Oxygen Delivery Method Sepsis Recent Fever Within 48 Hours Sepsis New/Unexplained Change in Mental Status Sepsis Action Taken by Nursing 06/19/23 22:20 06/19/23 22:30 06/19/23 22:30 Temperature Temperature Source Pulse Rate 95 H 100 H Respiratory Rate 20 14 Respiratory Effort / Characteristics Respiratory Depth Blood Pressure 121/77 Blood Pressure Mean 82 Pulse Oximetry Oxygen Delivery Method Sepsis Recent Fever Within 48 Hours Sepsis New/Unexplained Change in Mental Status Sepsis Action Taken by Nursing 06/19/23 22:40 Temperature Temperature Source Pulse Rate 104 H Respiratory Rate 16 Respiratory Effort / Characteristics Respiratory Depth Blood Pressure Blood Pressure Mean Pulse Oximetry Oxygen Delivery Method Sepsis Recent Fever Within 48 Hours Sepsis New/Unexplained Change in Mental Status Sepsis Action Taken by Nursing Laboratory Data 06/19/23 19:35 06/19/23 19:35 Lab Results 06/19/23 Range/Units 19:35 WBC 6.81 (4.8-10.8) K/ul RBC 3.52 L (4.20-5.40) M/uL Hgb 8.2 L (12.0-16.0) g/dl Hct 25.9 L (37.0-47.0) % MCV 73.6 L (80.0-100.0) fL MCH 23.3 L (25.0-34.0) pg MCHC 31.7 L (32.0-36.0) g/dL RDW Std Deviation 58.2 H (36.4-46.3) fL RDW Coeff of Fredrick 23.0 H (11.5-14.5) % Plt Count 356 (130-400) K/uL MPV 9.2 L (9.4-12.4) fL Immature Gran % (Auto) 0.3 % Neut % (Auto) 63.9 % Lymph % (Auto) 20.4 % Shelby % (Auto) 10.3 % Eos % (Auto) 4.8 % Baso % (Auto) 0.3 % Neut # (Auto) 4.35 (1.40-6.50) K/uL Lymph # (Auto) 1.39 (1.20-3.40) K/uL Shelby # (Auto) 0.70 H (0.11-0.59) K/uL Eos # (Auto) 0.33 (0.00-0.50) K/uL Baso # (Auto) 0.02 (0.00-0.20) K/uL Immature Gran # (Auto) 0.02 (0.01-0.20) K/uL Absolute Nucleated RBC 0.02 (0.00-0.12) K/uL Nucleated RBC % (auto) 0.3 % Hypochromasia Present Anisocytosis Present Target Cells 1+ Sodium 127 L (136-145) mmol/L Potassium 4.1 (3.5-5.1) mmol/L Chloride 96 L (98-107) mmol/L Carbon Dioxide 25 (21-32) mmol/L Anion Gap 6 (3-11) BUN 9 (6-23) mg/dl Creatinine 0.56 L (0.6-1.2) mg/dl Est Cr Clr Drug Dosing Not Reportable Est GFR ( Amer) 116.6 ml/min Est GFR (Non-Af Amer) 100.6 ml/min BUN/Creatinine Ratio 16.1 (10-20) Glucose 93 (70-99(Fasting)) mg/dl Calcium 8.4 L (8.6-10.3) mg/dl Total Bilirubin 0.7 (0.2-1.0) mg/dl AST 15 (13-39) U/L ALT 4 L (7-52) U/L Alkaline Phosphatase 191 H (34-104) U/L Total Protein 6.9 (6.0-8.3) gm/dl Albumin 3.1 L (3.4-5.0) gm/dl Globulin 3.8 (2.5-4.0) gm/dl Albumin/Globulin Ratio 0.8 L (0.9-2) Administered Medications Discontinued Medications Cefazolin Sodium 3,000 mg/ (Dextrose) 72.5 mls @ 145 mls/hr IV NOW STA Stop: 06/19/23 19:30 Last Infusion: 06/19/23 20:16 Dose: Infused Documented By: Admin: 06/19/23 19:41 Dose: 145 mls/hr Documented By: SHANNA Sodium Chloride (Nss) 1,000 mls @ 999 mls/hr IV .Q1H1M ONE Stop: 06/19/23 21:33 Last Admin: 06/19/23 20:49 Dose: Not Given Documented By: SHANNA Sodium Chloride (Nss) 500 mls @ 999 mls/hr IV .Q31M ONE Stop: 06/19/23 21:03 Last Infusion: 06/19/23 21:51 Dose: Infused Documented By: Admin: 06/19/23 20:50 Dose: 999 mls/hr Documented By: SHANNA Oxycodone HCl (Oxycodone Hcl Ir 5 Mg Tab (Immediate Release)) 5 mg PO NOW STA Stop: 06/19/23 20:41 Last Admin: 06/19/23 20:49 Dose: 5 mg Documented By: SHANNA Discharge Plan Visit Data Chief Complaint: Referred by Doctor Stated Complaint: NEEDS ANTIBIOTIC THRU PICLINE ED Provider: Alverto Stiles Discharge Problem: Osteomyelitis of right femur, Anemia Patient Disposition: Admitted As Inpatient Discharge Instructions Interventions: ED Discharge Assessment Last Done: 06/19/23 22:38 Forms Stand Alone Forms: [facility] Prescriptions Prescriptions: No Action buspirone 10 mg tablet 10 mg PO TID Qty: 270 3RF digoxin 125 mcg (0.125 mg) tablet 125 mcg PO QPM Qty: 90 3RF Rx Instructions: hold for pulse < 60 ropinirole 0.25 mg tablet 0.25 mg PO HS Qty: 90 3RF hydroxyzine HCl 50 mg tablet 50 - 100 mg PO TID PRN (Reason: anxiety) Qty: 180 3RF cyclobenzaprine 10 mg tablet 10 mg PO TID PRN (Reason: muscle spasm) Qty: 30 0RF levothyroxine 75 mcg tablet 75 mcg PO DAILY Qty: 90 3RF Centrum Silver 0.4 mg-300 mcg- 250 mcg Tablet 1 tab PO QAM polyethylene glycol 3350 [Miralax] 17 gram powder in packet 17 g PO BID PRN (Reason: Constipation) acetaminophen [Tylenol Extra Strength] 500 mg tablet 1,000 mg PO Q8 omeprazole 20 mg tablet,delayed release (DR/EC) 20 mg PO DAILY cyanocobalamin (vitamin B-12) 1,000 mcg capsule 1,000 mcg PO QAM doxepin 100 mg capsule 100 mg PO HS ascorbic acid (vitamin C) [Vitamin C] 500 mg Tablet 500 mg PO DAILY cholecalciferol (vitamin D3) [Vitamin D3] 125 mcg (5,000 unit) Tablet 125 mcg PO DAILY Cefazolin Sodium 2 g IV TID Rx Instructions: End 07/08/2023 metoprolol succinate 50 mg Tablet Extended Release 24 Hr 50 mg PO BID sennosides-docusate sodium [Senna Plus] 8.6-50 mg Tablet 2 tab-cap PO BID zinc 50 mg Tablet 50 mg PO DAILY oxycodone 5 mg Tablet 5 mg PO Q4H PRN (Reason: .Pain 4-6) duloxetine 30 mg Capsule,Delayed Release(Dr/Ec) 30 mg PO DAILY oxycodone 10 mg Tablet 10 mg PO Q4H PRN (Reason: .severe pain) melatonin 10 mg Tablet 20 mg PO HS Eliquis 5 mg tablet 5 mg PO BID guaifenesin [Mucinex] 600 mg Tablet Extended Release 12hr 600 mg PO Q12H furosemide [Lasix] 20 mg tablet 20 mg PO QAM PRN (Reason: edema) Referrals Referrals: Cyndy Don MD [Primary Care Provider] - Discharge Problem: Osteomyelitis of right femur Qualifiers: Osteomyelitis type: unspecified type Qualified Code(s): M86.9 - Osteomyelitis, unspecified Anemia Qualifiers: Anemia type: unspecified type Qualified Code(s): D64.9 - Anemia, unspecified
[2023-06-19 19:49] LABS: Basophils # (auto) 0.02 K/uL (0.00-0.20); Basophils % (auto) 0.3 %; Eosinophils # (auto) 0.33 K/uL (0.00-0.50); Eosinophils % (auto) 4.8 %; Hematocrit (blood only) 25.9 % (37.0-47.0); Hemoglobin 8.2 g/dl (12.0-16.0); Immature Granulocytes # (auto) 0.02 K/uL (0.01-0.20); Immature Granulocytes % (auto) 0.3 %; Lymphocytes # (auto) 1.39 K/uL (1.20-3.40); Lymphocytes % (auto) 20.4 %; Mean Corpuscular Hemoglobin 23.3 pg (25.0-34.0); Mean Corpuscular Hgb Conc 31.7 g/dL (32.0-36.0); Mean Corpuscular Volume 73.6 fL (80.0-100.0); Mean Platelet Volume 9.2 fL (9.4-12.4); Monocytes % (auto) 10.3 %; Neutrophils # (auto) 4.35 K/uL (1.40-6.50); Neutrophils % (auto) 63.9 %; Nucleated RBC # (auto) 0.02 K/uL (0.00-0.12); Nucleated RBC % (auto) 0.3 %; Platelet Count 356 K/uL (130-400); RDW Standard Deviation 58.2 fL (36.4-46.3); Red Blood Count 3.52 M/uL (4.20-5.40); White Blood Count 6.81 K/ul (4.8-10.8)
[2023-06-19 20:07] LABS: Albumin Level 3.1 gm/dl (3.4-5.0); Anion Gap 6 (3-11); Bilirubin,Total 0.7 mg/dl (0.2-1.0); Calcium 8.4 mg/dl (8.6-10.3); Carbon Dioxide 25 mmol/L (21-32); Chloride 96 mmol/L (98-107); Potassium 4.1 mmol/L (3.5-5.1); Sodium 127 mmol/L (136-145)
--- NOTE | 2023-06-19 20:07 | History & Physical Report ---
Date of Service June 19, 2023 Assessment & Plan (1) Osteomyelitis of right femur: Plan: Patient is a 63-year-old female with past medical history of diastolic heart failure with an EF of 60 to 65% on 03/23, atrial fibrillation on Eliquis, beta thalassemia with a baseline hemoglobin of 8, hypothyroidism, hypertension, history of gastric bypass, and anxiety/depression who presents to the hospital in regard to recent right femur osteomyelitis. Patient to be admitted for IV antibiotics and setting up home health. -Admit to [facility], no telemetry indication -Restart cefazolin 2 g every 8 hours via PICC line -Blood cultures taken given gap and antibiotic therapy and showing 2 out of 4 SIRS criteria with tachycardia and increased respiratory rate -Status post removal of artificial hip joint at [facility], patient reports sutures are due to be taken out -Recommend discussing case with [facility], consider consulting [facility] orthopedics while inpatient -Prescribed oxycodone as needed for pain -Morning ESR and CRP (2) Spondylolisthesis of cervical region: Plan: - Secondary to fall that occurred on 05/13 -Patient apparently has appointment with trauma surgeons tomorrow for follow-up, she will not make this appointment -Where cervical collar at all times per discharge summary from [facility] -Flexeril as needed for spasm -No picking up more than 10 pounds (3) HTN (hypertension): Plan: - Continue metoprolol for hypertension and atrial fibrillation (4) Anemia: Plan: - Secondary to history of beta thalassemia -Baseline hemoglobin is approximately 8, continue Eliquis with no evidence of active bleeding (5) Right heart failure, unspecified: Plan: - Echocardiogram on 03/21/2023 showing ejection fraction of 60 to 65% with no valvular vegetations seen at that time -Previously was taking Lasix 40 mg daily, however, switch to 20 mg of p.o. Lasix as needed, will hold off routine Lasix for now. Alter based off of physical exam (6) Generalized anxiety disorder: Plan: - Patient on multiple psychiatric medications including duloxetine 30 mg daily, buspirone 10 mg 3 times a day, doxepin 30 mg p.o. daily and hydroxyzine 50 to 100 mg 3 times a day as needed for anxiety -Continue home medications except for hydroxyzine which we will hold (7) Diabetes: Plan: - Borderline diabetic with most recent A1c being 6.3 without medication -No need for basal bolus insulin at this time (8) RLS (restless legs syndrome): Plan: - Continue ropinirole (9) Hyponatremia: Plan: - Admission sodium of 127, chronic issue -Suspect SIADH given multiple psychiatric medications, trend (10) Hx of thalassemia: Plan: - As above (11) Atrial fibrillation, chronic: Plan: - On Eliquis for anticoagulation -Continue metoprolol and digoxin for rate control (12) Hypothyroidism: Plan: - Continue levothyroxine (13) Rash and nonspecific skin eruption: Plan: -Rash on LE possibly scabies based on physical exam -Placed on contact precautions. -Consider Permethrin cream for treatment Plan Disposition: Admit to [facility] for IV antibiotics and setting up home health services DVT prophylaxis: Eliquis Diet: Heart healthy CODE STATUS: Full code as discussed with patient History of Present Illness Chief Complaint: R femur osteomyelitis Primary Care Provider: Cyndy Don MD Patient is a 63-year-old female with past medical history of diastolic heart failure with an EF of 60 to 65% on 03/23, atrial fibrillation on Eliquis, beta thalassemia with a baseline hemoglobin of 8, hypothyroidism, hypertension, history of gastric bypass, and anxiety/depression who presents to the hospital in regard to recent right femur osteomyelitis. Patient originally presented to [facility] on 05/13 after a fall and at that time was found to have a C5-C6 spondylolisthesis. She was subsequently transferred to [facility] and admitted to the Ortho trauma department and underwent anterior cervical discectomy and fusion on 05/18. Also at [facility], she was complaining of right hip pain with elevated ESR and CRP. An MRI was performed which demonstrated right femur osteomyelitis. She was taken to the OR on 05/20 for proximal femur, acetabulum, anterior column saucerization with antibiotic bead and wound VAC placement with return to the OR on 05/27 for right hip irrigation and debridement with placement of antibiotic beads. She was started on a 6-week course of cefazolin that will be completed on 07/08/2023. She was subsequently discharged to an acute rehab facility called [facility] where she felt like she was being treated poorly and sitting in her own feces. Because of this, she was signed out AMA on 06/17/2023. When she went home, home health nursing did not come to administer her antibiotics. She has been 2 days without antibiotics and she called her PCP who recommended she come to the hospital for admission. ED course: Patient evaluated by provider. Labs are significant for a hemoglobin of 8.2 which is her baseline, MCV of 73.6 which is improved from her baseline, sodium of 127 (hyponatremia is a chronic issue), creatinine of 0.56, and alkaline phosphatase of 191 (chronically elevated). Blood cultures were taken, however, dose of cefazolin was given. 2 g of cefazolin was given as well as 500 cc of normal saline. 5 mg dose of oxycodone was given for pain of right hip. Hospitalist service was consulted for admission for administration of IV antibiotics for osteomyelitis. Allergies Allergy/AdvReac Type Severity Reaction Status Date / Time - Allergy Severe CAN'T Verified 06/19/23 20:27 REMEMBER mushroom Allergy Intermediate RASH Verified 06/19/23 20:27 Home Medications Medication Instructions Recorded Confirmed Type acetaminophen 500 mg tablet 1,000 mg PO Q8 Pain 10/11/22 06/19/23 History (Tylenol Extra Strength) enfjitdr-bfb-fjuur acid 0.4 1 tab PO QAM 10/11/22 06/19/23 History mg-lycopene 300 mcg-lutein 250 mcg tablet (Centrum Silver) omeprazole 20 mg tablet,delayed 20 mg PO DAILY 10/11/22 06/19/23 History release polyethylene glycol 3350 17 gram 17 g PO BID PRN Constipation 10/11/22 06/19/23 History oral powder packet (Miralax) buspirone 10 mg tablet 10 mg PO TID #270 tabs 10/24/22 06/19/23 Rx digoxin 125 mcg (0.125 mg) tablet 125 mcg PO QPM #90 tabs 10/24/22 06/19/23 Rx ropinirole 0.25 mg tablet 0.25 mg PO HS #90 tabs 11/22/22 06/19/23 Rx doxepin 100 mg capsule 100 mg PO HS 01/23/23 06/19/23 History cyclobenzaprine 10 mg tablet 10 mg PO TID PRN muscle spasm #30 02/27/23 06/19/23 Rx tabs levothyroxine 75 mcg tablet 75 mcg PO DAILY #90 tabs 02/27/23 06/19/23 Rx hydroxyzine HCl 50 mg tablet 50 - 100 mg (1 - 2 x 50 mg) PO TID 03/07/23 06/19/23 Rx PRN anxiety #180 tabs cyanocobalamin (vitamin B-12) 1,000 mcg PO QAM 04/01/23 06/19/23 History 1,000 mcg capsule Cefazolin Sodium 2 g IV TID 06/19/23 06/19/23 History apixaban 5 mg tablet (Eliquis) 5 mg PO BID 06/19/23 06/19/23 History ascorbic acid (vitamin C) 500 mg 500 mg PO DAILY 06/19/23 06/19/23 History tablet (Vitamin C) cholecalciferol (vitamin D3) 125 125 mcg PO DAILY 06/19/23 06/19/23 History mcg (5,000 unit) tablet (Vitamin D3) duloxetine 30 mg capsule,delayed 30 mg PO DAILY 06/19/23 06/19/23 History release furosemide 20 mg tablet (Lasix) 20 mg PO QAM PRN edema 06/19/23 06/19/23 History guaifenesin 600 mg tablet, 600 mg PO Q12H 06/19/23 06/19/23 History extended release 12 hr (Mucinex) melatonin 10 mg tablet 20 mg PO HS 06/19/23 06/19/23 History metoprolol succinate 50 mg 50 mg PO BID 06/19/23 06/19/23 History tablet,extended release 24 hr oxycodone 10 mg tablet 10 mg PO Q4H PRN .severe pain 06/19/23 06/19/23 History oxycodone 5 mg tablet 5 mg PO Q4H PRN .Pain 4-6 06/19/23 06/19/23 History sennosides 8.6 mg-docusate sodium 2 tab-cap PO BID 06/19/23 06/19/23 History 50 mg tablet (Senna Plus) zinc 50 mg tablet 50 mg PO DAILY 06/19/23 06/19/23 History Past Med/Surg History Medical History (Updated 06/20/23 @ 06:52 by Brannon Tate DO) Atrial fibrillation, chronic Hypothyroidism Scabies Atrial fibrillation with RVR Poor historian History of COVID-19 July 2020 treated at a hospital in [place] for several days. 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 Atrial fibrillation follows with [facility] Cardiology (Donna Osborne PA-C) dx a year ago. no cardioversions in the past. Acute hyponatremia Pneumonia hx - "years ago" Anemia Cellulitis hx Iron deficiency anemia Migraines RLS (restless legs syndrome) GERD (gastroesophageal reflux disease) occasional Chronic heart failure with preserved ejection fraction (HFpEF) Constipation PE (pulmonary embolism) 10+ years ago. unsure of cause. Cervical radiculopathy Thalassemia (Unknown) Arthroplasty of knee (Unknown) "bilateral " Surgical History History of section S/P revision of total hip History of bilateral knee arthroplasty History of esophagogastroduodenoscopy (EGD) History of colonoscopy History of cholecystectomy Status post hip surgery R HIP REPLACEMENT REMOVED DUE TO INFX History of bilateral hip replacements H/O gastric bypass Family History Father Colorectal cancer Mother Diabetes Other FHx: throat cancer No family history of adverse response to anesthesia Denies family history of Ovarian cancer Prostate cancer Myocardial infarction Breast cancer Social History Smoking Status: Former smoker Tobacco Type: Cigarettes Second Hand Exposure: No; Do You Dip or Chew Tobacco: No; Hx Alcohol Use: Yes Alcohol type: wine Hx Substance Use: Yes Substance Use Type Other:: medical marijuana Preferred Language: Tamazight Communication Ability: Effective Visual Impairment: Partially Limited Central Supply Assistant Required: No Beliefs That Will Affect Care: Restorationism Restorationism Beliefs: Hoahaoism marital status: Current Living Situation: Alone Current Living Situation Comment: lives alone in apartment, daughter checks on her How many Children do You have: 3 Other Information That Helps Us Care for You: No Feels Safe at Home: Yes Safety Concerns: Feels Safe At This Time Assistive Devices: Walker, Wheelchair and Other Assistive Devices Comment: electric wheelchair Review of Systems Review of Systems: All systems reviewed & are unremarkable except as noted in HPI & below Physical Exam Constitutional: WD/WN, vitals as above + obese and comfortable Eyes: + anicteric sclerae Neck: trachea midline, no thyromegaly Respiratory: normal respiratory effort, lungs clear to auscultation Cardiovascular: Rate/Rhythm: regular rate and + irregularly irregular Gastrointestinal (Abdomen): normal bowel sounds, soft, nontender, no hepatosp lenomegaly Musculoskeletal: Head/Neck/Chest: normocephalic and head atraumatic Skin: There is an incision on the anterior aspect of the right hip with sutures in place without any evidence of erythema or discharge. Bilateral lower extremities are covered in erythematous papules with what appears to be burrows. Neurologic: moves all extremities Psychiatric: A+Ox3, euthymic affect Lymphatic: no cervical or axillary lymphadenopathy Results & Data Results & Data Vital Signs (Past 12 Hours) Vital Signs Temp Pulse Resp BP Pulse Ox O2 Del Method 06/19/23 19:46 97 Room Air 06/19/23 19:40 103 H 16 06/19/23 19:38 94 H 24 06/19/23 19:38 118/88 06/19/23 17:04 36.6 C 110 H 18 98 Room Air Supervising Physician Co-Signing Physician Notes Attending addendum: I have physically seen this patient, have supervised the medical residents activities, and agree with the H&P unless as otherwise noted. Assessment and Plan: Right femur osteomyelitis- History of right hip irrigation and debridement with artificial hip removal at [facility] Consult [facility] orthopedic surgery in a.m. Patient has been without antibiotics for 2 days Restart cefazolin 2 g IV every 8 hours the existing PICC line To complete total of 6 weeks of IV antibiotics Cervical spondylolisthesis- Secondary to fall on 05/13 Continue cervical collar for now, and will need to reschedule trauma surgery evaluation Flexeril as needed as needed muscle spasm Atrial fibrillation/hypertension- Continue metoprolol with hold parameters, and apixaban for anticoagulation Remaining orders and notations as noted
[2023-06-19 20:10] LABS: Anisocytosis Present; Hypochromasia Present; Target Cells 1+
[2023-06-19 20:13] LABS: Alanine Aminotransferase 4 U/L (7-52); Albumin Globulin Ratio 0.8 (0.9-2); Alkaline Phosphatase 191 U/L (34-104); Aspartate Aminotransferase 15 U/L (13-39); BUN Creatinine Ratio 16.1 (10-20); Blood Urea Nitrogen 9 mg/dl (6-23); Est GFR (African American) 116.6 ml/min; Est GFR (Non-African American) 100.6 ml/min; Globulin 3.8 gm/dl (2.5-4.0); Glucose 93 mg/dl (70-99(Fasting)); Total Protein 6.9 gm/dl (6.0-8.3)
[2023-06-19] MEDS ORDERED: SODIUM CHLORIDE 0.9% 1,000 ML IV ONE (20:33)
[2023-06-19] MEDS ORDERED: oxyCODONE HCL IR 5 MG TAB (IMMEDIATE RELEASE) PO STA (20:40)
[2023-06-19] MEDS ORDERED: SODIUM CHLORIDE 0.9% 500 ML IV ONE (20:41)
[2023-06-19] MEDS ORDERED: ONDANSETRON INJ 2 MG/ML 2 ML VIAL IV PRN (23:17)
[2023-06-19] MEDS ORDERED: CYCLOBENZAPRINE HCL 10 MG TAB PO PRN (23:17)
[2023-06-19] MEDS ORDERED: oxyCODONE HCL IR 5 MG TAB (IMMEDIATE RELEASE) PO PRN (23:17)
[2023-06-19] MEDS ORDERED: POLYETHYLENE (MIRALAX) 17 GM PACK PO PRN (23:17)
[2023-06-19] MEDS ORDERED: Patient's HEIGHT &/or WEIGHT Needed STA (23:27)
[2023-06-19] MEDS: DOCUSATE SODIUM/SENNA 50/8.6MG TAB PO SCH (23:46)
[2023-06-19] MEDS: ACETAMINOPHEN 500 MG TAB PO SCH (23:49)
[2023-06-19] MEDS: METOPROLOL SUCC 50MG EXT REL TAB PO SCH (23:49)
[2023-06-19] MEDS: DIGOXIN 0.125 MG TAB PO SCH (23:49)
[2023-06-19] MEDS: busPIRone 5 MG TAB PO SCH (23:51)
[2023-06-19] MEDS: guaiFENesin 600 MG TABCR PO SCH (23:51)
[2023-06-19] MEDS: rOPINIRole HCL 0.25 MG TABLET PO SCH (23:51)
[2023-06-19] MEDS: DOXEPIN HCL 50 MG CAPSULE PO SCH (23:51)
[2023-06-20] MEDS: MELATONIN 3 MG TAB PO SCH ×2 (00:57→22:12)
[2023-06-20] MEDS: APIXABAN 5 MG TABLET PO SCH ×3 (00:58→22:12)
[2023-06-20] MEDS: oxyCODONE HCL IR 5 MG TAB (IMMEDIATE RELEASE) PO PRN ×4 (00:58→22:18)
--- OUTSIDE RECORDS SUMMARY | 2023-06-20 03:54 | External Medical Summary | Summary of Care ---
Author Name Unknown Organization [facility] Address [address] [address] Phone [phone] Care Team Providers Care Slab Conditioner Supervisor Name Role Phone Minda Estradana Primary Care Provider Encounter Details Date Type Department Care Team (Late st Contact Info) Description 06/16/2023 Orders Only Lab Mobile Phlebotomy [facility] [address] [place] [id number] Jose Faith MD [address] [place] [address] Chronic multifocal osteomyelitis of right femur (HCC)*; Anemia due to chronic blood loss Allergies Active Allergy Reactions Criticality Noted Date Comments Mushroom Extract Complex 01/16/2022 Patient just stated that she is allergic to mushrooms Hylan G-F 20 04/13/2004 Pseudoseptic joint documented as of this encounter (statuses as of 06/16/2023) Medications Medication Sig Dispensed Refills Start Date End Date Status Omeprazole Magnesium 20 MG Oral Tablet Delayed Release (PriLOSEC OTC) Take by mouth 1 Tablet in the morning. 90 Tablet 0 03/14/2022 Active Vitamin 27-0.8 MG Oral Tablet Take by mouth 1 Tablet daily . 60 Tablet 0 03/14/2022 Active Senna 8.6 MG Oral Capsule Take by mouth 1 Capsule daily as needed (constipation). While taking narcotics 30 Capsule 0 03/14/2022 Active Digoxin 125 MCG Oral Tablet (Lanoxin)Indications :Chronic diastolic congestive heart failure (HCC),Longstanding persistent atrial fibrillation (HCC),HTN, goal below 140/90 TAKE 1 TABLET BY MOUTH EVERY MORNING. HOLD FOR PULSE LESS THAN 60 90 Tablet 1 10/05/2022 Active documented as of this encounter (statuses as of 06/16/2023) Active Problems Problem Noted Date Diagnosed Date Acquired hypothyroidism 02/01/2022 Restless leg syndrome 02/01/2022 Dyslipidemia 02/01/2022 Depression with anxiety 02/01/2022 Iron deficiency anemia due to chronic blood loss 02/01/2022 Staphylococcal arthritis of right hip 02/01/2022 Hip pain, right 01/11/2022 A-fib 01/11/2022 Longstanding persistent atrial fibrillation 12/01 Chronic diastolic congestive heart failure 12/28 Gastroesophageal reflux disease without esophagi tis 10/23/2016 BMI 35.0-35.9,adult 02/10/2016 Overview: 192 lbs Obesity, Class II, BMI 35-39.9, isolated (see ac tual BMI) 07/09/2014 Myalgia and myositis 03/11/2014 Degenerative disc disease, cervical 11/17/2013 Cervical disc herniation 09/15/2013 Lumbar degenerative disc disease 09/15/2013 Other pulmonary embolism and infarction 04/15/20 13 MTHFR mutation (methylenetetrahydrofolate reduct ase) 03/12/2013 Pulmonary embolism 03/12/2013 HTN, goal below 140/90 02/10/2013 Edema of face 01/18/2013 Hoarseness 08/04/2012 Laryngitis, chronic 08/04/2012 Esophageal reflux 08/04/2012 History of tobacco use 08/04/2012 Chronic rhinitis 08/04/2012 Recurrent sinusitis 08/04/2012 Migraine without aura 02/20/2010 Bipolar I disorder, most recent episode mixed, m oderate 06/14/2009 Obstructive sleep apnea 02/07/2009 Overview: ICD-10 update of inactive term Intestinal bypass or anastomosis status 05/26/20 08 Vergara's esophagus 01/16/2006 INTEST POSTOP NONABSORB 12/11/2005 JOE RESEARCH OTHER*[id number] 11/20/2005 ADVANCE DIRECTIVE INFORMATION 12/05/2004 Overview: refused Asthma, mild persistent 11/14/2004 Overview: PER PROVIDER PROTOCOL. Other thalassemia 04/08/2004 Osteoarthritis of multiple joints 04/06/2004 documented as of this encounter (statuses as of 06/16/2023) Resolved Problems Problem Noted Date Diagnosed Date Resolved Date MEDICATION USE AGREEMENT 07/16/201412/2015 Overview: Updated 07/16/2014 [facility] [place] Poison oak dermatitis 01/18/20132014 Acute bronchitis, antibiotics not indicated 10/25/2012 12/04/2012 Pharyngitis, chronic 08/04/2012 013 Cough 08/04/2012 10/02/2012 Obesity, morbid (more than 1 00 lbs over ideal weight or BMI > 40) 07/10/2012 07/09/2014 Severe obesity with body mas s index (BMI) of 35.0 to 39.9 with serious comorbidity 09/26/2009 Overview: Per Obesity Taxonomy ICD-10 update of inactive diagnosis ABDOMINAL PANNICULITIS 08/17/200806/14 Asthma with severity to be determined 11/14/2004 06/25/2012 Overview: ICD-10 update of inactive term PRURITUS PSYCHOGENIC 11/14/2004 009 Major depressive disorder 05/30/2004 Overview: ICD-10 update of inactive term Morbid obesity, BMI not known 05/30/2004 09/26/2009 Overview: Per Obesity Taxonomy ARTHROPATHY NOS-L-LEG 04/11/20042008 documented as of this encounter (statuses as of 06/16/2023) Immunizations Name Administration Dates Next Due COVID-19, LNP-s, No Preserve , Kishan-sucrose, Ages 12+ (Pfizer) 01/23/2022 Pneumococcal Polysaccharide PPV23 (Pneumovax) 11/04/2008 Seasonal Influenza, Quadriva lent, No Preserve, IM 03/29/2016,04/27/2015 Seasonal Influenza, Split, I IV3, With Preserve, Inj 03/05/2014,04/10/2013,03/12/2012,07/13 TDAP (age 10 and older)(Boostrix) 10/12/2016 documented as of this encounter Social History Tobacco Use Types Packs/Day Years Used Date Smoking Tobacco: Former Cigarettes 1 24 Q uit: 01/30/2000 Smokeless Tobacco: Never Comments:No passive smoke ex posure Alcohol Use Standard Drinks/Week Comments No 0 (1 standard drink = 0.6 oz pur e alcohol) Sex and Gender Information Value Date Recorded Sex Assigned at Not on file Gender Identity Not on file Sexual Orientation Not on file Job Start Date Occupation Industry Not on file Not on file Not on file documented as of this encounter Functional Status Functional Status Response Date of Assess ment Do you have serious difficul ty walking or climbing stairs? (5 years old or older) Yes 01/26/2022 documented as of this encounter Plan of Treatment Upcoming Encounters Date Type Department Care Team (Late st Contact Info) Description 06/17/2023 2:20 AM EST Laboratory Lab Mobile Phlebotomy [facility] [address] [facility] [place] [id number] [place], [facility] [address] [facility] [place] [address] Scheduled Orders Name Type Priority Associated Diagnoses Orde r Schedule COMPREHENSIVE METABOLIC PANEL Lab Routine Chronic multifocal osteomyelitis of right femur (HCC) Anemia due to chronic blood loss Expected: 06/17/2023, Expires: 06/16/2024 CRP (INFLAMMATORY MARKER) Lab Routine Chronic multifocal osteomyelitis of right femur (HCC) Anemia due to chronic blood loss Expected: 06/17/2023, Expires: 06/16/2024 CBC WITH WBC DIFFERENTIAL Lab Routine Chronic multifocal osteomyelitis of right femur (HCC) Anemia due to chronic blood loss Expected: 06/17/2023, Expires: 06/16/2024 ERYTHROCYTE SEDIMENTATION RATE (ESR) Lab Routine Chronic multifocal osteomyelitis of right femur (HCC) Anemia due to chronic blood loss Expected: 06/17/2023, Expires: 06/16/2024 PLT Lab Routine Chronic multifocal osteomyelitis of right femur (HCC) Anemia due to chronic blood loss Expected: 06/17/2023, Expires: 06/16/2024 Scheduled Procedures Name Priority Associated Diagnoses Date/Ti me ESOPHAGOGASTRODUODENOSCOPY ( EGD), FLEXIBLE, TRANSORAL, DIAGNOSTIC Recall Vergara's esophagus without dysplasia COLONOSCOPY FLEXIBLE PROXIMAL DIAGNOSTIC Recall Encounter for screening colonoscopy Health Maintenance Due Date Last Done Comments HIV Screening 1977 Albumin/Creatinine Ratio 1980 Hepatitis C Screening 1980 HPV/Co-Test 1992 Cologuard 2007 Fecal Occult Blood Test 2007 Sigmoidoscopy 2007 Pneumococcal Vaccine: Pediatrics (0 to 5 Years) and At-Risk Patients (6 to 64 Years) (2 - PCV) 11/04/2009 11/04/2008 Zoster Vaccines (1 of 2) 2012 Mammogram 11/06/2015 11/05/2014, /07/2013, 09/22/2012, Additional history exists Cervical Cancer Screening 09/23/2016 Pap Smear 09/23/2016 09/23/2013, 08/30 (Done elsewhere), 05/28/2007 Depression Screening 02/12/2018 02/12/2017 Lipid Panel 04/26/2021 04/26/2016, 07/02, 01/21/2015, Additional history exists Hepatitis B (1 of 3 - Risk 3-dose series) 2022 COVID-19 Vaccine ( - 2022- season) 2023 01/23/2022 Influenza Vaccine (FLU shot) (#1) 2023 03/29/2016, 04/27/2015, 03/05/2014, Additional history exists DIG LEVEL FOR MEDICATION MONITORING YEARLY 03/10/2023 03/10/2022, 12/28/2021 GFR 06/12/2024 06/12/2023, 05/31, 03/14/2022, Additional history exists Vergara's Esophagus Surveilance 03/09/2025 03/09/2022, 08/11/2015, 07/30/2014, Additional history exists Diabetes Screening 06/12/2026 06/12/2023, 1 08/11/2022, 03/14/2022, Additional history exists Colonoscopy 08/17/2026 08/17/2016, 08/01, 08/11/2015, Additional history exists Colorectal Cancer Screening 08/17/2026 DTaP,Tdap,and Td Vaccines (2 - Td or Tdap) 10/12/2026 10/12/2016 GARDASIL-HPV IMMUNIZATION SERIES Aged Out No longer eligible based on patient's age to complete this topic MENINGOCOCCAL (MENACTRA/MENVEO) Aged Out No longer eligible based on patient's age to complete this topic documented as of this encounter Medical Devices Not on filedocumented as of this encounter Visit Diagnoses Diagnosis Chronic multifocal osteomyelitis of right femur (HCC)- Primary Chronic osteomyelitis, pelvic region and thigh Anemia due to chronic blood loss Iron deficiency anemia secondary to blood loss (chronic) documented in this encounter Advance Directives Latest Code Status on File Code Status Date Activated Date Inactivated Comments Full Code 01/11/2022 9:52 PM 03/14/2022 7:53 PM Care Teams Slab Conditioner Supervisor Relationship Specialty Start Date End Date Minda Estrada DO [address] [place] [address] [place] [address], [place] [address] PCP - General Family Medicine 11/21/22 documented as of this encounter
--- OUTSIDE RECORDS SUMMARY | 2023-06-20 03:54 | External Medical Summary | Summary of Care ---
Author Name Unknown Organization [facility] Address [address] [facility] [place] [address] Phone [phone] Care Team Providers Care Privacy Specialist Name Role Phone Minda Estradana Primary Care Provider Encounter Details Date Type Department Care Team (Late st Contact Info) Description 06/12/2023 Orders Only Lab Mobile Phlebotomy [facility] [address] [place] [address] Jose Faith MD [address] [place] [id number] HTN, goal below 140/90* Allergies Active Allergy Reactions Criticality Noted Date Comments Mushroom Extract Complex 01/16/2022 Patient just stated that she is allergic to mushrooms Hylan G-F 20 04/13/2004 Pseudoseptic joint documented as of this encounter (statuses as of 06/12/2023) Medications Medication Sig Dispensed Refills Start Date [...] as of this encounter (statuses as of 06/12/2023) Active Problems Problem Noted Date Diagnosed Date [...] 01/16/2006 INTEST POSTOP NONABSORB 12/11/2005 JOE RESEARCH OTHER*[id number] 11/20/2005 ADVANCE DIRECTIVE INFORMATION 12/05/2004 Overview: refused Asthma, mild persistent 11/14/2004 Overview: PER PROVIDER PROTOCOL. Other thalassemia 04/08/2004 Osteoarthritis of multiple joints 04/06/2004 documented as of this encounter (statuses as of 06/12/2023) Resolved Problems Problem Noted Date Diagnosed Date Resolved Date MEDICATION USE AGREEMENT 07/16/201412/2015 Overview: Updated 07/16/2014 [facility] Poison oak dermatitis 01/18/20132014 Acute bronchitis, antibiotics [...] as of this encounter (statuses as of 06/12/2023) Immunizations Name Administration Dates Next Due COVID-19, [...] as of this encounter Plan of Treatment Scheduled Orders Name Type Priority Associated Diagnoses Orde r Schedule BASIC METABOLIC PANEL Lab Routine HTN, goal below 140/90 Expected: 06/13/2023, Expires: 06/12/2024 Scheduled Procedures Name Priority Associated Diagnoses Date/Ti [...] (1 of 2) 2012 Mammogram 11/06/2015 11/05/2014, 04/0 07/2013, 09/22/2012, Additional history exists Cervical Cancer Screening 09/23/2016 Pap Smear 09/23/2016 09/23/2013, 08/30 (Done elsewhere), 05/28/2007 Depression Screening 02/12/2018 02/12/2017 Lipid Panel 04/26/2021 04/26/2016, 07/02, 01/21/2015, Additional history exists Hepatitis B (1 of 3 - Risk 3-dose series) 2022 COVID-19 Vaccine (2 - season) 2023 01/23/2022 Influenza Vaccine (FLU shot) (#1) 2023 03/29/2016, 04/27/2015, 03/05/2014, Additional history exists DIG LEVEL FOR MEDICATION MONITORING YEARLY 03/10/2023 03/10/2022, 12/28/2021 GFR 06/10/2024 06/10/2023, 03/01, 03/13/2022, Additional history exists Vergara's Esophagus Surveilance 03/09/2025 03/09/2022, 08/11/2015, 07/30/2014, Additional history exists Diabetes Screening 06/10/2026 06/10/2023, 0 03/14/2022, 03/13/2022, Additional history exists Colonoscopy 08/17/2026 08/17/2016, 08/01, [...] as of this encounter Visit Diagnoses Diagnosis HTN, goal below 140/90- Primary Unspecified essential hypertension documented in this encounter Advance Directives Latest Code Status on File Code Status Date Activated Date Inactivated Comments Full Code 01/11/2022 9:52 PM 03/14/2022 7:53 PM Care Teams Privacy Specialist Relationship Specialty Start Date End Date Minda Estrada DO [address] [place] [address] PCP - General Family Medicine 11/21/22 documented as of this encounter
--- OUTSIDE RECORDS SUMMARY | 2023-06-20 03:54 | External Medical Summary | Summary of Care ---
Author Name Unknown Organization [facility] Address [address] [facility] [place] [address] Phone [phone] Care Team Providers Care Ell Teacher Name Role Phone Minda Estradana Primary Care Provider Encounter Details Date Type Department Care Team (Late st Contact Info) Description 06/17/2023 Orders Only Lab Mobile Ph[facility] [address] [place] [phone] Jose Faith MD [address] [place] [address] Chronic multifocal osteomyelitis of right femur (HCC)*; Anemia due to chronic blood loss Allergies Active Allergy Reactions Criticality Noted Date Comments Mushroom Extract Complex 01/16/2022 Patient just stated that she is allergic to mushrooms Hylan G-F 20 04/13/2004 Pseudoseptic joint documented as of this encounter (statuses as of 06/17/2023) Medications Medication Sig Dispensed Refills Start Date [...] as of this encounter (statuses as of 06/17/2023) Active Problems Problem Noted Date Diagnosed Date [...] 01/16/2006 INTEST POSTOP NONABSORB 12/11/2005 JOE RESEARCH OTHER*[id number] 11/20/2005 ADVANCE DIRECTIVE INFORMATION 12/05/2004 Overview: refused Asthma, mild persistent 11/14/2004 Overview: PER PROVIDER PROTOCOL. Other thalassemia 04/08/2004 Osteoarthritis of multiple joints 04/06/2004 documented as of this encounter (statuses as of 06/17/2023) Resolved Problems Problem Noted Date Diagnosed Date Resolved Date MEDICATION USE AGREEMENT 07/16/201412/2015 Overview: Updated 07/16/2014 Dr[facility] Poison oak dermatitis 01/18/20132014 Acute bronchitis, antibiotics [...] as of this encounter (statuses as of 06/17/2023) Immunizations Name Administration Dates Next Due COVID-19, [...] Care Team (Late st Contact Info) Description 06/18/2023 12:10 AM EST Laboratory Lab Mobile Phlebotomy [facility] [address] [facility] [place] [address] [place], [facility] Mobile [place] [address] [facility] [place] [address] Scheduled Orders Name Type Priority Associated Diagnoses Orde r Schedule CBC WITH WBC DIFFERENTIAL Lab Routine Chronic multifocal osteomyelitis of right femur (HCC) Anemia due to chronic blood loss Expected: 06/18/2023, Expires: 06/17/2024 COMPREHENSIVE METABOLIC PANEL Lab Routine Chronic multifocal osteomyelitis of right femur (HCC) Anemia due to chronic blood loss Expected: 06/18/2023, Expires: 06/17/2024 CRP (INFLAMMATORY MARKER) Lab Routine Chronic multifocal osteomyelitis of right femur (HCC) Anemia due to chronic blood loss Expected: 06/18/2023, Expires: 06/17/2024 PLT Lab Routine Chronic multifocal osteomyelitis of right femur (HCC) Anemia due to chronic blood loss Expected: 06/18/2023, Expires: 06/17/2024 ERYTHROCYTE SEDIMENTATION RATE (ESR) Lab Routine Chronic multifocal osteomyelitis of right femur (HCC) Anemia due to chronic blood loss Expected: 06/18/2023, Expires: 06/17/2024 Scheduled Procedures Name Priority Associated Diagnoses Date/Ti [...] 9:52 PM 03/14/2022 7:53 PM Care Teams Ell Teacher Relationship Specialty Start Date End Date Minda Estrada DO [address] [facility] [address] [place] [address], [place] [address] PCP - General Family Medicine 11/21/22 documented as of this encounter
--- OUTSIDE RECORDS SUMMARY | 2023-06-20 03:55 | External Medical Summary ---
Author Name Unknown Address Unknown Organization K01[place] [place] [address] [place] [address] Laboratory Report Ordering Provider Test Date Status RIRI JEAN BAPTISTE 06/10/2023 04:52:17 Final Observation Date Value Abnormality Reference (Units ) Status Erythrocyte sedimentation rate by Photometric method 06/10/2023 04:52:17 46 Above high normal <30 (mm/hour) Final Performing Location [facility] [place] [address] [place] [address]
--- OUTSIDE RECORDS SUMMARY | 2023-06-20 03:55 | External Medical Summary ---
Author Name Unknown Address Unknown Organization [id number]:[facility] - [address] [place] [address] Laboratory Report Ordering Provider Test Date Status RIRI JEAN BAPTISTE 06/10/2023 04:52:17 Final Observation Date Value Abnormality Reference (Units ) Status WBC, Total 06/10/2023 04:52:17 7.36 4.00-10.8 0 (K/uL) Final RBC 06/10/2023 04:52:17 3.41 3.85-5.15 (M/uL) Final Hemoglobin 06/10/2023 04:52:17 8.5 Below low normal 12 .0-15.3 (g/dL) Final HCT 06/10/2023 04:52:17 27.0 Below low normal 36. 0-45.2 (%) Final MCV 06/10/2023 04:52:17 79.2 81.5-97.5 (fL) Final MCH 06/10/2023 04:52:17 24.9 27.0-34.0 (pg) Final MCHC 06/10/2023 04:52:17 31.5 32.0-36.0 (g/dL) Final RDW 06/10/2023 04:52:17 Final No result - abnormal red carmine l distribution. Platelets 06/10/2023 04:52:17 491 Above high normal 14 0-400 (K/uL) Final MPV 06/10/2023 04:52:17 8.9 6.6-11.1 ( fL) Final Nucleated erythrocytes/100 leukocytes [Ratio] in Blood by Automated count 06/10/2023 04:52:17 0 <=0 (/100 WBCs) Final Performing Location LABORATORY [facility] - [address] [place] [address]
--- OUTSIDE RECORDS SUMMARY | 2023-06-20 03:55 | External Medical Summary ---
Author Name Unknown Address Unknown Organization K1F:[facility] - [address] [place] [address] Laboratory Report Ordering Provider Test Date Status RIRI JEAN BAPTISTE 06/10/2023 04:52:17 Final Observation Date Value Abnormality Reference (Units ) Status BUN 06/10/2023 04:52:17 14 6-20 (mg/dL) Final Creatinine 06/10/2023 04:52:17 0.6 0.5-1.0 (mg/dL) Final Glomerular filtration rate/1.73 sq M.predicted [Volume Rate/Area] in Serum, Plasma or Blood by Creatinine-based formula (CKD-EPI) 06/10/2023 04:52:17 >90 >=60 (mL/min) Final eGFR is calculated based on the CKD-EPI 2020 equation SODIUM 06/10/2023 04:52:17 132 Below low normal 135 -146 (mmol/L) Final Potassium 06/10/2023 04:52:17 5.6 Above high normal 3. 5-5.1 (mmol/L) Final Cl 06/10/2023 04:52:17 98 98-107 (mm ol/L) Final CO2 06/10/2023 04:52:17 28 22-32 (mmo l/L) Final Anion gap 06/10/2023 04:52:17 6 Below low normal 7-1 5 (mmol/L) Final Glucose 06/10/2023 04:52:17 87 70-120 (mg /dL) Final Albumin 06/10/2023 04:52:17 3.1 Below low normal 3.8 -5.0 (g/dL) Final AST (Aspartate aminotransferase) 06/10/2023 04:52:17 24 10-35 (U/L) Fin al Alk Phos 06/10/2023 04:52:17 200 Above high normal 35 -130 (U/L) Final Bilirubin, Total 06/10/2023 04:52:17 0.5 <=1 .2 (mg/dL) Final Calcium 06/10/2023 04:52:17 8.9 8.4-10.2 ( mg/dL) Final Protein 06/10/2023 04:52:17 6.2 6.0-8.3 (g /dL) Final ALT (Alanine aminotransferase) 06/10/2023 04:52:17 6 Below low normal 10-35 (U/L) Final Performing Location LAB[facility]ATORY [facility] - [facility] [address] [place] [address]
--- OUTSIDE RECORDS SUMMARY | 2023-06-20 03:55 | External Medical Summary | Continuity of Care Document ---
Author Name Unknown Organization [facility] Address [address] [place] [phone] Care Team Providers Care Art Manager Name Role Phone Hortensia Don Primary Care Physician [phone] Encounter [facility] [id number] Date(s): 05/14/23 - 06/08/[address] [phone] Encounter Diagnosis Chronic osteomyelitis of right femur(Discharge Diagnosis) - 05/24/23 Hyponatremia(Discharge Diagnosis) - 06/05/23 Blood loss anemia(Discharge Diagnosis) - 05/30/23 Atrial fibrillation with RVR(Discharge Diagnosis) - 05/28/23 S/P cervical discectomy(Discharge Diagnosis) - 06/05/23 Discharge Disposition: [facility] Attending Physician: MD Regan Priyanka Admitting Physician: MD Swanson Mark A Referring Physician: MD Deep, Ari Allergies, Adverse Reactions, Alerts Substance Reaction Severity Status Synvisc Active Bee sting 1 Active Pollen 2 Maple pollen Maple Active Allergy Not found in Search 3 Active mushrooms swollen tongue Severe Active 1Could have bee sting allergy? Possible toxic reaction? 2pt. stated does not know what reaction it causes 3Hylands Functional Status 06/07/23 History of Fall in Last 3 Months Cruz N o Presence of Secondary Diagnosis Cruz Ye s Use of Ambulatory Aid Cruz Crutches/can e/walker IV/Heparin Lock Fall Risk Cruz Yes Gait/Transferring Fall Risk Cruz Normal /bedrest/immobile Mental Status Fall Risk Cruz Oriented t o own ability Cruz Fall Risk Score 50 Cruz Fall Risk High risk 06/07/23 Speech Pattern Clear 06/06/23 Neurological Symptoms Weakness ADLs Moderate assistance Facial Symmetry Symmetric Gait Unsteady Swallowing Difficulty None Level of Consciousness Neuro Alert Hallucinations Present None Medications acetaminophen 500 mg oral tablet Start: 06/07/23 12:16:00 EST, 2 tab, PO, q8h Start Date: 06/07/23 Status: Ordered atorvastatin Start: 05/14/23 4:39:00 EST Start Date: 05/14/23 Status: Ordered BuSpar 10 mg oral tablet Start: 11/27/12 16:47:00, 1 tab, PO, tid Start Date: 11/27/12 Status: Ordered ceFAZolin 2 g/50 [id number] dextrose intravenous solution Start: 06/07/23 12:21:00 EST, 50 mL, IV, q8h Start Date: 06/07/23 Status: Ordered Cymbalta 30 mg oral delayed release capsule Start: 06/07/23 12:18:00 EST, 1 cap, PO, Daily Start Date: 06/07/23 Status: Ordered digoxin 125 mcg (0.125 mg) oral tablet Start: 05/14/23 4:59:00 EST, 1 tab, PO, qAM, Hold for HR <60 Start Date: 05/14/23 Status: Ordered doxepin 50 mg oral capsule Start: 06/07/23 12:18:00 EST, 2 cap, PO, qhs Start Date: 06/07/23 Status: Ordered Eliquis 5 mg oral tablet Start: 05/14/23 4:33:00 EST, 1 tab, PO, bid Start Date: 05/14/23 Status: Ordered Flexeril 5 mg oral tablet Start: 06/07/23 12:17:00 EST, 1 tab, PO, tid, PRN: spasms Start Date: 06/07/23 Status: Ordered furosemide Start: 05/14/23 4:39:00 EST, 20 mg =, Daily, as needed for lower extremity swelling, PRN: see ordercomments Start Date: 05/14/23 Status: Ordered levothyroxine 75 mcg (0.075 mg) oral tablet Start: 05/14/23 5:01:00 EST, 1 tab, PO, Daily Start Date: 05/14/23 Status: Ordered Melatonin Start: 06/07/23 12:21:00 EST, 5 mg =, PO, qhs Start Date: 06/07/23 Status: Ordered metoprolol succinate (ER) 50 mg, XL tablet, PO, 06/07/23 21:00:00 EST, 06/07/23 21:00:00 EST, Extended Release product, 06/03/23 18:49:00 EST Start Date: 06/07/23 Stop Date: 06/07/23 Status: Completed metoprolol succinate 50 mg oral tablet, extended release Start: 06/07/23 12:20:00 EST, 1 tab, PO, bid Start Date: 06/07/23 Status: Ordered MiraLax Start: 06/07/23 12:21:00 EST, 17 g =, PO, Daily Start Date: 06/07/23 Status: Ordered Multiple Vitamins oral tablet Start: 11/27/12 16:45:00, 1 tab, PO, Daily Start Date: 11/27/12 Status: Ordered omeprazole 20 mg oral delayed release tablet Start: 11/27/12 16:46:00, 1 tab, PO, Daily Start Date: 11/27/12 Status: Ordered oxyCODONE 10 mg oral tablet Start: 06/07/23 12:21:00 EST, 10 mg =, PO, q4h, Refills: 0, PRN: pain - severe (7-10) Start Date: 06/07/23 Status: Ordered oxyCODONE 5 mg oral tablet Start: 06/07/23 12:21:00 EST, 5 mg =, PO, q4h, Refills: 0, PRN: pain - moderate (4-6) Start Date: 06/07/23 Status: Ordered rOPINIRole 0.25 mg oral tablet TAKE 1 TABLET BY MOUTH AT BEDTIME Start Date: 05/14/23 Status: Ordered Senna S Start: 06/07/23 12:21:00 EST, 2 tab, PO, bid Start Date: 06/07/23 Status: Ordered Vitamin B-12 1000 mcg oral tablet Start: 05/14/23 16:22:00 EST, 1 tab, PO, Daily Start Date: 05/14/23 Status: Ordered Vitamin D3 Start: 06/07/23 12:21:00 EST, 125 mcg =, PO, Daily Start Date: 06/07/23 Status: Ordered Mental Status 05/27/23 Communication Barrier Present No 05/14/23 Primary Language Mohawk Problem List Condition Confirmation Course Effective Dates Status Health St atus Informant Acid reflux Confirmed Active Arthritis Confirmed Active Asthma Confirmed Active Afib Confirmed Active Bipolar Confirmed Active Contusion of left knee Confirmed Active Depression Confirmed Active Foot pain, left 1 Confirmed Active S/P total knee replacement Confirmed Active Heart failure Confirmed Active HTN (hypertension) Confirmed Active Knee pain, bilateral 2 Confirmed Active Cervicalgia Confirmed Active Orthostatic hypotension Confirmed Active Puncture wound of foot Confirmed Active Shoulder pain Confirmed Active SOB (shortness of breath) Confirmed Active Thalassemia Confirmed Active Weight gain Confirmed Active 1left foot ankle pain 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, DJD Diagnosis Diagnosis Type Effective Dates Health Status Clinical Service Informant Chronic osteomyelitis of right femur Discharge Diagnosis 05/24/23 Non-Specified Atrial fibrillation with RVR Discharge Diagnosis 05/28/23 Non-Specified Blood loss anemia Discharge Diagnosis 05/30/23 Non-Specified Hyponatremia Discharge Diagnosis 06/05/23 S/P cervical discectomy Discharge Diagnosis 06/05/23 Procedures Procedure Date Related Diagnosis Body Site Status B/L TKR 07/26/09 Completed gastric bypass 2005 Completed section Complete d Left knee scopes 1 Comple verenice 1X2: 1995 & 1997 Results Laboratory List Name Date Complete Blood Count (CBC w Platelets) 1 08/08/22 Complete Blood Count (CBC w Platelets) 1 08/07/22 Basic Metabolic Panel (BMP) 06/04/23 Complete Blood Count (CBC w Platelets) 1 08/05/22 Magnesium Level 06/04/23 Added on Lab order 06/03/23 Added on Lab order 06/03/23 Complete Blood Count w Differential (CBC w Platelets and Diff) 06/03/23 Comprehensive Metabolic Panel (CMP) 06/03 Erythrocyte Sedimentation Rate (ESR) 06/03/23 Basic Metabolic Panel (BMP) 06/03/23 Magnesium Level 06/03/23 C Reactive Protein, Quantitation (CRP QU ANTITATION) 06/03/23 Ferritin (FERRITIN) 06/03/23 Iron Profile (IRON PROFILE) 06/03/23 Magnesium Level 06/02/23 Creatinine, Urine, Random (Urine Creatin ine, Random) 05/29/23 Osmolality, Urine (Urine Osmolality) Sodium, Urine, Random (Na, Urine, Random ) 05/29/23 Urea Nitrogen, Urine, Random (Urine Urea Nitrogen, Random) 05/29/23 Blood Type/Antibody Screen (for possible transfusion) (TYPE AND SCREEN) 05/29/23 Added on Lab order 05/29/23 Osmolality (OSMOLALITY) 05/29/23 Complete Blood Count w Differential (CBC w Platelets and Diff) 05/27/23 Comprehensive Metabolic Panel (CMP) 05/02 01/20 Erythrocyte Sedimentation Rate (ESR) Blood Type/Antibody Screen ( for possible transfusion) (Type and Screen (for possible transfusion)) 05/26/23 Potassium Level, Whole Blood 05/25/23 Vancomycin, Trough Level 05/25/23 Glucose Meter (GLUCOSE METER) 05/23/23 Blood Type/Antibody Screen ( for possible transfusion) (Type and Screen (for possible transfusion)) 05/23/23 Vancomycin, Trough Level 05/23/23 Lactic Acid Level 05/22/23 NT-Pro BNP (BNP, NT-Pro) 05/22/23 Lactic Acid Level 05/22/23 Potassium Level, Whole Blood 05/21/23 Osmolality 05/21/23 Lipid Profile (LIPOPROTEINS) 05/19/23 ALT Level (ALT) 05/19/23 AST Level (AST) 05/19/23 Albumin Level (ALBUMIN) 05/19/23 Alkaline Phosphatase (ALKALINE PHOSPHATA SE) 05/19/23 Bilirubin, Total (BILIRUBIN, TOTAL) 05/01 03/23 Osmolality (OSMOLALITY) 05/19/23 Protein, Total (PROTEIN) 05/19/23 Triglycerides (TRIGLYCERIDES) 05/19/23 Osmolality, Urine 05/18/23 Sodium, Urine, Random (Urine Sodium, Ran dom) 05/18/23 Urea Nitrogen, Urine, Random (Urine Urea Nitrogen, Random) 05/18/23 IStat Gases, Arterial (ANES) (I-STAT GAS ,ART(ANES)) 05/18/23 MRSA Surveillance (Nasal Swab) 05/17/23 Urine Analysis w/ Reflexed Microscopic. (UA w/ Reflexed Microscopic.) 05/17/23 Creatine Kinase, Total (CK) 05/17/23 Myoglobin (MYOGLOBIN) 05/17/23 Creatine Kinase, Total (CK, Total) 05/17 Myoglobin 05/17/23 Cortisol Level 05/17/23 Phosphorus Level (PO4 Level) 05/16/23 Thyroid Stimulating Hormone (TSH) Digoxin Level 05/16/23 Cell Count w Differential, Fluid (FLD CE LL CNT & DIFF) 05/16/23 Fluid on Hold in Laboratory (EXTRA FLUID ) 05/16/23 Specimen Type (SPECIMEN TYPE) 05/16/23 Osmolality, Urine (Urine Osmolality) Sodium, Urine, Random (Urine Sodium, Ran dom) 05/16/23 Prothrombin Time w/ INR (PT/INR) 3 Nephrology Panel 05/15/23 Nephrology Panel 05/15/23 Ferritin 05/15/23 Folic Acid Level 05/15/23 Iron Profile 05/15/23 Reticulocyte Panel (Reticulocyte Count) 05/15/23 Vitamin B12 Level (B12 Level) 05/15/23 Creatinine, Urine, Random (Urine Creatin ine, Random) 05/14/23 Urea Nitrogen, Urine, Random (Urine Urea Nitrogen, Random) 05/14/23 Prothrombin Time w/ INR (PT/INR) 3 Vitamin D, 25-Hydroxy Level, Total 05/14 C Reactive Protein, Quantitation (CRP, Q uantitation) 05/14/23 Erythrocyte Sedimentation Rate (ESR) Hemoglobin A1C 05/14/23 Blood Type/Antibody Screen ( for possible transfusion) (Type and Screen (for possible transfusion)) 05/14/23 Hepatitis C Antibody 05/14/23 Most recent to oldest [Reference Range]: 1 2 3 Hct, POC [38-51 %] 27 % *LOW* (05/18/23 11:24 AM) Hgb, POC [12-17 g/dL] 9.2 g/dL *LOW* (05/18/23 11:24 AM) ABO/Rh A POSITIVE (05/29/23 10:36 AM) A POSITIVE (05/26/23 6:42 AM) A POSITIVE (05/23/23 6:15 AM) Antibody Scr NEGATIVE (05/29/23 10:36 AM) NEGATIVE (05/26/23 6:42 AM) NEGATIVE (05/23/23 6:15 AM) Expires at 0600AM on 06/01/2023 (05/29/23 10:36 AM) 05/29/2023 (05/26/23 6:42 AM) 05/26/2023 (05/23/23 6:15 AM) # Units 3 (05/29/23 10:36 AM) 2 (05/26/23 6:42 AM) 2 (05/23/23 6:15 AM) R Number NRQ (05/29/23 10:36 AM) NRQ (05/26/23 6:42 AM) NRQ (05/23/23 6:15 AM) CReacProt [<0.50 mg/dL] 1.17 mg/dL *HI* (06/03/23 3:56 AM) 17.34 mg/dL *HI* (05/14/23 6:22 AM) Fluid Container Specimen available f rom 0 to 3 days based on specimen stability. Please use addon order if you wish to order testing. (05/16/23 3:13 PM) eGFR CKD-EPI [>60 mL/min/1.73 m2] >90 mL/min/1.73 m2 (06/04/23 6:19 AM) >90 mL/min/1.73 m2 (06/03/23 3:56 AM) >90 mL/min/1.73 m2 (06/03/23 3:56 AM) Estimated Average Glucose 117 mg/dL (05/14/23 6:22 AM) Glu (wb), POC by IStat [70-105 mg/dL] 95 mg/dL (05/18/23 11:24 AM) SaO2(a), POC [92-98 %] 100 % *HI* (05/18/23 11:24 AM) Vitamin D, 25-Hydroxy [30-100 ng/mL] 20 ng/mL 1 *LOW* (05/14/23 6:22 AM) Request of Physician crp (06/03/23 3:58 AM) iron profile ferritin (06/03/23 3:57 AM) serum osmolality (05/29/23 8:00 AM) Action Taken YES (06/03/23 3:58 AM) YES (06/03/23 3:57 AM) YES (05/29/23 8:00 AM) Non-HDL 75 mg/dL (05/19/23 8:00 AM) Imm. Retics [5.0-25.0 %] 25.6 % *HI* (05/15/23 2:56 AM) Hypochromia SLIGHT (05/27/23 6:23 AM) Microcytes MODERATE (05/27/23 6:23 AM) Polychromasia INCREASED (05/27/23 6:23 AM) Basophilic Stippling SLIGHT (05/27/23 6:23 AM) Target Cells FEW (05/27/23 6:23 AM) Platelet Morphology NORMAL (05/27/23 6:23 AM) BNP, NT-Pro [<125 pg/mL] 1007 pg/mL *HI* (05/22/23 7:59 PM) Baxter/Mac/Meso, fl 2 % (05/16/23 3:13 PM) Estimated CrCl 131.80 mL/min (06/04/23 7:13 AM) 112.63 mL/min (06/03/23 4:49 AM) 112.63 mL/min (06/03/23 4:44 AM) Retic Hgb [30.8-36.6 pg] 17.1 pg *LOW* (05/15/23 2:56 AM) MPV [9.0-12.2 fL] 8.6 fL *LOW* (06/07/23 5:08 AM) 8.8 fL *LOW* (06/06/23 8:25 AM) 8.7 fL *LOW* (06/04/23 6:19 AM) Immature Gran% 0.8 % (06/03/23 3:56 AM) 0.0 % (05/27/23 6:23 AM) Neut% 56.3 % (06/03/23 3:56 AM) 79.1 % (05/27/23 6:23 AM) Lymph% 21.9 % (06/03/23 3:56 AM) 12.7 % (05/27/23 6:23 AM) Baxter% 12.7 % (06/03/23 3:56 AM) 4.6 % (05/27/23 6:23 AM) Baso% 0.6 % (06/03/23 3:56 AM) 0.0 % (05/27/23 6:23 AM) Eos% 7.7 % (06/03/23 3:56 AM) 3.6 % (05/27/23 6:23 AM) Immat Gran, Abs [0-0.4 K/uL] 0.05 K/uL (06/03/23 3:56 AM) Immat Gran, Abs [0.0-0.4 K/uL] 0.00 K/uL (05/27/23 6:23 AM) Neut, Abs [2.0-7.7 K/uL] 3.59 K/uL (06/03/23 3:56 AM) 5.93 K/uL (05/27/23 6:23 AM) Lymph, Abs [1.0-3.4 K/uL] 1.40 K/uL (06/03/23 3:56 AM) 0.95 K/uL *LOW* (05/27/23 6:23 AM) Baxter, Abs [0-1.0 K/uL] 0.81 K/uL (06/03/23 3:56 AM) 0.35 K/uL (05/27/23 6:23 AM) Baso, Abs [0-0.1 K/uL] 0.04 K/uL (06/03/23 3:56 AM) 0.00 K/uL (05/27/23 6:23 AM) Eos, Abs [0-0.5 K/uL] 0.49 K/uL (06/03/23 3:56 AM) 0.27 K/uL (05/27/23 6:23 AM) Type of Diff: AUTO (06/03/23 3:56 AM) MANUAL (05/27/23 6:23 AM) RDW [11.5-14.2 %] 22.6 % *HI* (06/07/23 5:08 AM) 22.6 % *HI* (06/06/23 8:25 AM) 22.9 % *HI* (06/04/23 6:19 AM) K, wb [3.5-5.0 mmol/L] 4.6 mmol/L (05/25/23 5:19 PM) 4.7 mmol/L (05/21/23 10:22 AM) B Comments Second specimen for [facility] confirmation requested from: CAS CRUZ 05/14/23 0814 (05/14/23 6:22 AM) Urea Nitro (u) 322 mg/dL 2 (05/29/23 11:20 AM) 325 mg/dL 3 (05/18/23 8:41 PM) 334 mg/dL 4 (05/14/23 6:59 AM) pH (a), POC [7.35-7.45 unit] 7.458 unit *HI* (05/18/23 11:24 AM) pCO2 (a), POC [35-45 mmHg] 39.3 mmHg (05/18/23 11:24 AM) pO2 (a), POC [80-105 mmHg] 469 mmHg *HI* (05/18/23 11:24 AM) Base XS(a), POC 4 mmol/L (05/18/23 11:24 AM) HCO3(a), POC [22-26 mmol/L] 27.8 mmol/L *HI* (05/18/23 11:24 AM) Ion Ca(wb), POC [1.12-1.32 mmol/L] 1.19 mmol/L (05/18/23 11:24 AM) Na (wb), POC [138-146 mmol/L] 133 mmol/L *LOW* (05/18/23 11:24 AM) K (wb), POC [3.5-4.9 mmol/L] 5.0 mmol/L *HI* (05/18/23 11:24 AM) Component RED CELLS (05/29/23 10:36 AM) RED CELLS (05/26/23 6:42 AM) RED CELLS (05/23/23 6:15 AM) Squamous Epithelial Cells (u) FEW (05/17/23 2:23 PM) MRSA Surveillance, on Admission [MSND] MRSA detected *Abnormal* (05/17/23 2:23 PM) Anion Gap [5-14 mmol/L] 7 mmol/L (06/04/23 6:19 AM) 8 mmol/L (06/03/23 3:56 AM) 7 mmol/L (06/03/23 3:56 AM) Alb [3.5-5.2 g/dL] 2.7 g/dL *LOW* (06/03/23 3:56 AM) 2.7 g/dL *LOW* (05/27/23 6:23 AM) 3.0 g/dL *LOW* (05/19/23 7:58 AM) Alk Phos [35-115 unit/L] 164 unit/L *HI* (06/03/23 3:56 AM) 155 unit/L *HI* (05/27/23 6:23 AM) 179 unit/L *HI* (05/19/23 7:58 AM) ALT [0-33 unit/L] <5 unit/L (06/03/23 3:56 AM) 11 unit/L (05/27/23 6:23 AM) 11 unit/L (05/19/23 7:58 AM) AST [0-32 unit/L] 17 unit/L (06/03/23 3:56 AM) 20 unit/L (05/27/23 6:23 AM) 15 unit/L (05/19/23 7:58 AM) B12 [211-946 pg/mL] >1800 pg/mL *HI* (05/15/23 2:56 AM) Bact (u) [NONE-NONE] FEW *Abnormal* (05/17/23 2:23 PM) Bili (u) [NEG] NEGATIVE (05/17/23 2:23 PM) BUN [6-23 mg/dL] 16 mg/dL (06/04/23 6:19 AM) 16 mg/dL (06/03/23 3:56 AM) 15 mg/dL (06/03/23 3:56 AM) Ca [8.4-10.2 mg/dL] 8.9 mg/dL (06/04/23 6:19 AM) 8.8 mg/dL (06/03/23 3:56 AM) 8.9 mg/dL (06/03/23 3:56 AM) Chol/HDL 3 (05/19/23 8:00 AM) Chol [<200 mg/dL] 111 mg/dL (05/19/23 8:00 AM) CPK [26-192 unit/L] REQUEST CREDITED uni t/L 5 (05/17/23 9:45 AM) 27 unit/L (05/17/23 9:44 AM) Cl- [98-107 mmol/L] 99 mmol/L (06/04/23 6:19 AM) 97 mmol/L *LOW* (06/03/23 3:56 AM) 99 mmol/L (06/03/23 3:56 AM) HCO3 [22-29 mmol/L] 26 mmol/L (06/04/23 6:19 AM) 26 mmol/L (06/03/23 3:56 AM) 26 mmol/L (06/03/23 3:56 AM) Cortisol [2.3-19.4 ug/dL] 8.3 ug/dL 6 (05/17/23 9:44 AM) Cret [0.60-1.00 mg/dL] 0.47 mg/dL *LOW* (06/04/23 6:19 AM) 0.55 mg/dL *LOW* (06/03/23 3:56 AM) 0.54 mg/dL *LOW* (06/03/23 3:56 AM) Dig [0.8-2.0 ng/mL] 1.4 ng/mL (05/16/23 5:24 PM) Vanco tr 16.5 ug/mL 7 (05/25/23 4:02 AM) 26.6 ug/mL 8 *Critical High* (05/23/23 3:33 AM) BF Source RIGHT 9 (05/16/23 3:13 PM) ESR [0-30 mm/hr] 55 mm/hr *HI* (06/03/23 3:56 AM) 93 mm/hr *HI* (05/27/23 6:23 AM) >130 mm/hr *HI* (05/14/23 6:22 AM) Baso,fl 0 % (05/16/23 3:13 PM) Iron [37-145 ug/dL] 36 ug/dL *LOW* (06/03/23 3:56 AM) 16 ug/dL *LOW* (05/15/23 2:56 AM) Eos,fl 0 % (05/16/23 3:13 PM) Ferritin [13.0-150.0 ng/mL] 614.9 ng/mL *HI* (06/03/23 3:56 AM) 821.7 ng/mL *HI* (05/15/23 2:56 AM) Lymph,fl 0 % (05/16/23 3:13 PM) [place] [address] /uL 10 (05/16/23 3:13 PM) Neut,fl 98 % (05/16/23 3:13 PM) Folate [>7.2 ng/mL] 7.9 ng/mL 11 (05/15/23 2:56 AM) OtherMono,fl 0 % (05/16/23 3:13 PM) RBC,fl >99501 /uL (05/16/23 3:13 PM) HbA1c [<5.7 %] 5.7 % 12 *HI* (05/14/23 6:22 AM) Glu [74-109 mg/dL] 86 mg/dL 13 (06/04/23 6:19 AM) 89 mg/dL 14 (06/03/23 3:56 AM) 86 mg/dL 15 (06/03/23 3:56 AM) Gluc Meter [74-109 mg/dL] 115 mg/dL *HI* (05/23/23 9:25 PM) Hct [35-44 %] 22.7 % *LOW* (06/07/23 5:08 AM) 24.3 % *LOW* (06/06/23 8:25 AM) 23.1 % *LOW* (06/04/23 6:19 AM) HCV Ab [NR] REACTIVE *Abnormal* (05/14/23 6:22 AM) HDL [>40 mg/dL] 36 mg/dL *LOW* (05/19/23 8:00 AM) Hgb [11.7-15.0 g/dL] 7.2 g/dL *LOW* (06/07/23 5:08 AM) 7.7 g/dL *LOW* (06/06/23 8:25 AM) 7.4 g/dL *LOW* (06/04/23 6:19 AM) INR [0.9-1.1] 1.2 16 *HI* (05/16/23 5:22 PM) 1.7 17 *HI* (05/14/23 6:22 AM) K [3.5-5.1 mmol/L] 5.1 mmol/L (06/04/23 6:19 AM) 5.1 mmol/L (06/03/23 3:56 AM) 5.1 mmol/L (06/03/23 3:56 AM) Ketones [NEG mg/dL] NEGATIVE mg/dL (05/17/23 2:23 PM) Lactate [0.5-2.2 mmol/L] 1.9 mmol/L (05/22/23 7:59 PM) 4.2 mmol/L *HI* (05/22/23 5:56 PM) LDL Chol, Calculated [50-130 mg/dL] 56 mg/dL (05/19/23 8:00 AM) Leuk Est [NEG] NEGATIVE (05/17/23 2:23 PM) MCH [28-33 pg] 24.8 pg *LOW* (06/07/23 5:08 AM) 24.4 pg *LOW* (06/06/23 8:25 AM) 24.7 pg *LOW* (06/04/23 6:19 AM) MCHC [32-36 g/dL] 31.7 g/dL *LOW* (06/07/23 5:08 AM) 31.7 g/dL *LOW* (06/06/23 8:25 AM) 32.0 g/dL (06/04/23 6:19 AM) MCV [81-96 fL] 78.3 fL *LOW* (06/07/23 5:08 AM) 77.1 fL *LOW* (06/06/23 8:25 AM) 77.3 fL *LOW* (06/04/23 6:19 AM) Mg [1.6-2.6 mg/dL] 1.9 mg/dL (06/04/23 6:19 AM) 1.9 mg/dL (06/03/23 3:56 AM) 1.9 mg/dL (06/02/23 3:33 AM) Na [136-145 mmol/L] 132 mmol/L *LOW* (06/04/23 6:19 AM) 131 mmol/L *LOW* (06/03/23 3:56 AM) 132 mmol/L *LOW* (06/03/23 3:56 AM) Nitrite (u) [NEG] NEGATIVE (05/17/23 2:23 PM) Osmolality [275-295 mOsm/kg] 260 mOsm/kg *LOW* (05/29/23 7:59 AM) 286 mOsm/kg (05/21/23 7:47 AM) 276 mOsm/kg (05/19/23 7:58 AM) PO4 [2.5-4.5 mg/dL] 4.5 mg/dL (05/16/23 5:24 PM) REQUEST CREDITED mg/dL 18 (05/15/23 8:00 PM) REQUEST CREDITED mg/dL 19 (05/15/23 4:00 PM) Plts [150-350 K/uL] 492 K/uL *HI* (06/07/23 5:08 AM) 568 K/uL *HI* (06/06/23 8:25 AM) 550 K/uL *HI* (06/04/23 6:19 AM) PT [12.0-14.2 seconds] 14.8 seconds *HI* (05/16/23 5:22 PM) 19.8 seconds *HI* (05/14/23 6:22 AM) RBC [3.90-5.00 M/uL] 2.90 M/uL *LOW* (06/07/23 5:08 AM) 3.15 M/uL *LOW* (06/06/23 8:25 AM) 2.99 M/uL *LOW* (06/04/23 6:19 AM) Retics (abs) [16.7-96.7 K/uL] 23.3 K/uL (05/15/23 2:56 AM) Retic (%) [0.40-2.05 %] 0.63 % (05/15/23 2:56 AM) Fe Sat [14-50 %] 17 % (06/03/23 3:56 AM) 12 % *LOW* (05/15/23 2:56 AM) T Bili [0.0-1.2 mg/dL] 0.3 mg/dL (06/03/23 3:56 AM) 0.4 mg/dL (05/27/23 6:23 AM) 0.3 mg/dL (05/19/23 7:58 AM) Temp(a) 37.0 C (05/18/23 11:24 AM) Total IBC [250-400 ug/dL] 212 ug/dL *LOW* (06/03/23 3:56 AM) 133 ug/dL *LOW* (05/15/23 2:56 AM) Prot [6.4-8.3 g/dL] 6.1 g/dL *LOW* (06/03/23 3:56 AM) 6.7 g/dL (05/27/23 6:23 AM) 8.2 g/dL (05/19/23 7:58 AM) Transferrin [200-360 mg/dL] 180 mg/dL *LOW* (06/03/23 3:56 AM) 113 mg/dL *LOW* (05/15/23 2:56 AM) TG [<150 mg/dL] 94 mg/dL (05/19/23 8:00 AM) 95 mg/dL (05/19/23 7:58 AM) TSH [0.30-4.20 uIU/mL] 2.12 uIU/mL (05/16/23 5:24 PM) Appear (u) CLEAR (05/17/23 2:23 PM) Color (u) YELLOW (05/17/23: PM) Creat (u) 50.88 mg/dL 20 (05/29/23 11:20 AM) 35.84 mg/dL 21 (05/14/23 6:59 AM) Glu (u) [NEG mg/dL] NEGATIVE mg/dL (05/17/23: PM) Hgb (u) [NEG] MODERATE *Abnormal* (05/17/23: PM) Na (u) 12 mmol/L 22 (05/29/23 11:20 AM) 88 mmol/L 23 (05/18/23 8:41 PM) <11 mmol/L 24 (05/16/23 1:16 PM) Osmol (u) [100-1000 mOsm/kg] 261 mOsm/kg (05/29/23 11:20 AM) 395 mOsm/kg (05/18/23 8:41 PM) 240 mOsm/kg (05/16/23 1:16 PM) pH (u) [5.0-8.0 unit] 6.0 unit (05/17/23: PM) Prot (u) [NEG mg/dL] NEGATIVE mg/dL (05/17/23: PM) RBC (u) [0-4 /HPF] 5-9 /HPF (05/17/23: PM) Urobili [0.1-1.0 EU/dL] 0.1-1.0 EU/dL (05/17/23: PM) SG [1.005-1.030] 1.005 (05/17/23: PM) WBC (u) [0-4 /HPF] 0-4 /HPF (05/17/23 2:23 PM) WBC [4.0-10.4 K/uL] 5.82 K/uL (06/07/23 5:08 AM) 6.15 K/uL (06/06/23 8:25 AM) 5.74 K/uL (06/04/23 6:19 AM) Myoglobin [25-58 ng/mL] REQUEST CREDITED ng/mL 25 (05/17/23 9:45 AM) 24 ng/mL *LOW* (05/17/23 9:44 AM) 1Result Comment: Deficiency: <20 ng/mL Insufficiency: 21-29 ng/mL Sufficiency: 30-100 ng/mL Potenial Toxicity: >150 ng/mL 2Result Comment: Reference Range for Random Urine Not Established. 3Result Comment: Reference Range for Random Urine Not Established. 4Result Comment: Reference Range for Random Urine Not Established. 5Result Comment: Lab orders combined with other orders received on the same specimen. 6Result Comment: Reference Range: MORNING (7AM-10AM) 6.20-19.4 UG/DL AFTERNOON (4PM-8PM) 2.30-11.9 UG/DL 7Result Comment: Trough Level: Therapeutic Level: 10.0-15.0 ug/mL (but 15.0-20.0 ug/mL for some indications) Potentially Toxic Level: >20.0 ug/mL 8Result Comment: RESULTS PHONED READ BACK RENE CARDENAS RN 05/23/2023 05:39:32 Trough Level: Therapeutic Level: 10.0-15.0 ug/mL (but 15.0-20.0 ug/mL for some indications) Potentially Toxic Level: >20.0 ug/mL 9Result Comment: HIP SYNOVIAL FLUID 10Result Comment: "The reference intervals and other method performance specifications are unavailable for this body fluid. Comparision of the result with concentration in the blood, serum or plasma isrecommended." 11Result Comment: HEMOLYZED SPECIMEN 12Result Comment: ADA Recommended [place] Reference Range: Normal: <5.7% Prediabetes: 5.7-6.4% Diabetes: >6.4% Increased A2. Recommend hemoglobin electrophoresis to verify the HbA2 percentage. If elevated HbA2 is verified,the patient may have beta thalassemia, which could affect the HbA1c synthesis. However, the HbA1c quantification can still represent a useful relative follow up index for the same patient. 13Result Comment: ADA recommendation for FASTING Serum/Plasma Glucose: Normal: 70-100 mg/dL Prediabetes: 100-125 mg/dL Diabetes: 126 mg/dL or higher 14Result Comment: ADA recommendation for FASTING Serum/Plasma Glucose: Normal: 70-100 mg/dL Prediabetes: 100-125 mg/dL Diabetes: 126 mg/dL or higher 15Result Comment: ADA recommendation for FASTING Serum/Plasma Glucose: Normal: 70-100 mg/dL Prediabetes: 100-125 mg/dL Diabetes: 126 mg/dL or higher 16Result Comment: Suggested therapeutic range for low-intensity Coumadin therapy for venous thromboembolism is INR 2.0-3.0 (ex: atrial fibrillation, history of TIA/stroke). For high risk patients, the suggested therapeutic range is INR 2.5-3.5 (ex: mechanical prosthetic valves). 17Result Comment: Suggested therapeutic range for low-intensity Coumadin therapy for venous thromboembolism is INR 2.0-3.0 (ex: atrial fibrillation, history of TIA/stroke). For high risk patients, the suggested therapeutic range is INR 2.5-3.5 (ex: mechanical prosthetic valves). 18Result Comment: NO SAMPLE RECEIVED 19Result Comment: NO SAMPLE RECEIVED 20Result Comment: Reference Range for Random Urine Not Established. 21Result Comment: Reference Range for Random Urine Not Established. 22Result Comment: Reference Range for Random Urine Not Established. 23Result Comment: Reference Range for Random Urine Not Established. 24Result Comment: Reference Range for Random Urine Not Established. 25Result Comment: Lab orders combined with other orders received on the same specimen. Orders for Microbiology Reports Name Date Anaerobe Culture, Bone (CULTURE,ANER(BON E)) 05/20/23 Bone Culture (CULTURE, BONE) 05/20/23 Anaerobe Culture, Intraoperative w Smear (CULTURE,ANAEROBE (INTRAOP)) 05/20/23 Intraoperative Culture w Smear (CULTURE, INTRAOPERATIVE) 05/20/23 Anaerobe Culture, Intraoperative w Smear (CULTURE,ANAEROBE (INTRAOP)) 05/20/23 Intraoperative Culture w Smear (CULTURE, INTRAOPERATIVE) 05/20/23 Acid Fast Bacillus Cx/Smear, Intraop (CU LTURE,AFB (INTRAOP)) 05/20/23 Anaerobe Culture, Intraoperative w Smear (CULTURE,ANAEROBE (INTRAOP)) 05/20/23 Fungus Culture, Intraoperative w Smear ( CULTURE,FUNGUS (INTRAOP)) 05/20/23 Intraoperative Culture w Smear (CULTURE, INTRAOPERATIVE) 05/20/23 Microbiology Reports (Most Recent Ten) TEST:Anaerobe.Culture, Bone STATUS:Auth (Verified) BODY SITE: SOURCE:Bone COLLECTED DATE/TIME:05/20/23 9:50 AM Status FINAL 05/25/2023 TEST:Bone.Cx STATUS:Auth (Verified) BODY SITE: SOURCE:Bone COLLECTED DATE/TIME:05/20/23 9:50 AM Status FINAL 05/23/2023 TEST:Anaerobe.Culture, Intraoperative STATUS:Auth (Verified) BODY SITE: SOURCE:Surgical Specimen COLLECTED DATE/TIME:05/20/23 9:03 AM Status FINAL 05/26/2023 ORGANISM:Staphylococcus aureus TEST:Intraoperative.Cx STATUS:Auth (Verified) BODY SITE: SOURCE:Surgical Specimen COLLECTED DATE/TIME:05/20/23 9:03 AM Status FINAL 05/23/2023 TEST:Anaerobe.Culture, Intraoperative STATUS:Auth (Verified) BODY SITE: SOURCE:Surgical Specimen COLLECTED DATE/TIME:05/20/23 9:02 AM Status FINAL 05/28/2023 ORGANISM:Staphylococcus aureus TEST:Intraoperative.Cx STATUS:Auth (Verified) BODY SITE: SOURCE:Surgical Specimen COLLECTED DATE/TIME:05/20/23 9:02 AM Status FINAL 05/23/2023 TEST:AFB.Culture, Intraoperative STATUS:Unauthenticated BODY SITE: SOURCE:Surgical Specimen COLLECTED DATE/TIME:05/20/23 9:00 AM Culture NO ACID FAST BACILLI ISOLATED AFTER 15 DAYS TEST:Intraoperative.Cx STATUS:Auth (Verified) BODY SITE: SOURCE:Surgical Specimen COLLECTED DATE/TIME:05/20/23 9:00 AM Status FINAL 05/23/2023 TEST:Fungus.Culture, Intraoperative STATUS:Unauthenticated BODY SITE: SOURCE:Surgical Specimen COLLECTED DATE/TIME:05/20/23 9:00 AM Culture NO FUNGUS ISOLATED AFTER 20 DAYS TEST:Anaerobe.Culture, Intraoperative STATUS:Auth (Verified) BODY SITE: SOURCE:Surgical Specimen COLLECTED DATE/TIME:05/20/23 9:00 AM Status FINAL 05/27/2023 ORGANISM:Staphylococcus aureus Radiology Reports * Exam Date Time Procedure Performing Provider Status 05/28/23 2:51 PM XR Pelvis 1 or 2 Views Jayson Lewis; Final Notes: (XR Pelvis 1 or 2 Views) Reason For Exam: Post op XR Pelvis 1 or 2 Views EXAMINATION: XR Pelvis 1 or 2 Views CLINICAL HISTORY: Post op COMPARISON: Radiograph of the pelvis dated 05/20/2023 FINDINGS: Solo view of the pelvis. Left total hip arthroplasty without evidence of hardware complication. Postoperative changes of resection of the proximal right femur and placement of antibiotic beads, surgical drain, surgical clips. Heterotopic ossification about the left humeral head, similar to prior. Normal SI joints and pubic symphysis. IMPRESSION: Postsurgical changes of resection of the right proximal femur, possible developing heterotopic ossification about the surgical site. Dr. Suly Prajapati is the dictating resident. Finalized reports status indicates that the attending has reviewed the images and report, and agrees with the interpretation. Preliminary report status should be regarded as NOT interpreted by the attending radiologist. Workstation ID: [id number] Final Dictated by:MD Prajapati Haley M Dictated DT/TM:05/28/2023 5:55 Resident:MD Prajapati Haley M Signed by:MD Sierra Rekha Signed (Electronic Signature):05/28/2023 5:54 p * Exam Date Time Procedure Performing Provider Status 05/25/23 12:32 PM XR Chest 1 View Anita Healy; Final Notes: (XR Chest 1 View) Reason For Exam: RUE PICC tip confirmation XR Chest 1 View EXAMINATION: XR Chest 1 View CLINICAL HISTORY: RUE PICC tip confirmation COMPARISON: None. FINDINGS: Portable AP semiupright view of the chest. Right PICC with tip in lower SVC. Enlarged cardiac mediastinal silhouette. Normal pulmonary vasculature. No pleural effusion or pneumothorax. Partially visualized cervical hardware. Mildly dilated loops of bowel. IMPRESSION: 1. Right PICC with tip in lower SVC. Dr. Geovanny Hagen is the dictating resident. Finalized reports status indicates that the attending has reviewed the images and report, and agrees with the interpretation. Preliminary report status shouldbe regarded as NOT interpreted by the attending radiologist. Workstation ID: [id number] Final Dictated by:MD Hagen Dan Dictated DT/TM:05/25/2023 12:53 Resident:MD Hagen Dan Signed by:MD Bean Eric A Signed (Electronic Signature):05/25/2023 12:52 * Exam Date Time Procedure Performing Provider Status 05/20/23 5:37 PM XR Pelvis 1 or 2 Views Althea Hawley; F inal Notes: (XR Pelvis 1 or 2 Views) Reason For Exam: post-op XR Pelvis 1 or 2 Views EXAMINATION: XR Femur 2 Views Right, XR Pelvis 1 or 2 Views CLINICAL HISTORY: post-op COMPARISON: Multiple priors, most recent pelvis radiographs from 05/19/2023 FINDINGS: Portable supine AP radiographs of the pelvis. Postoperative changes of resection of the proximal right femur and placement of antibiotic beads, surgical drain, and surgical clips. Left total hip arthroplasty with adjacent heterotopic ossification and without hardware complication. The SI joints andpubic symphysis are normal for age. AP and crosstable lateral views of the right femur. Postoperative changes of resection of the proximal right femur as above. Right total knee arthroplasty without hardware complication. Lucencies seen along the femoral diaphysis. IMPRESSION: Expected postoperative changes of right proximal femoral resection. Dr. Sujata Zurita is the dictating resident. Finalized reports status indicates that the attending has reviewed the images and report, and agrees with the interpretation. Preliminary report status should be regarded as NOT interpreted by the attending radiologist. Workstation ID: [id number] Final Dictated by:MD Zurita Tara Dictated DT/TM:05/20/2023 6:06 Resident:MD Zurita Tara Signed by:MD Bean Eric A Signed (Electronic Signature):05/20/2023 6:05 p * Exam Date Time Procedure Performing Provider Status 05/20/23 5:37 PM XR Femur 2 Views Right Althea Hawley; F inal Notes: (XR Femur 2 Views Right) Reason For Exam: post-op XR Femur 2 Views Right EXAMINATION: XR Femur 2 Views Right, XR Pelvis 1 or 2 Views CLINICAL HISTORY: post-op COMPARISON: Multiple priors, most recent pelvis radiographs from 05/19/2023 FINDINGS: Portable supine AP radiographs of the pelvis. Postoperative changes of resection of the proximal right femur and placement of antibiotic beads, surgical drain, and surgical clips. Left total hip arthroplasty with adjacent heterotopic ossification and without hardware complication. The SI joints andpubic symphysis are normal for age. AP and crosstable lateral views of the right femur. Postoperative changes of resection of the proximal right femur as above. Right total knee arthroplasty without hardware complication. Lucencies seen along the femoral diaphysis. IMPRESSION: Expected postoperative changes of right proximal femoral resection. Dr. Sujata Zurita is the dictating resident. Finalized reports status indicates that the attending has reviewed the images and report, and agrees with the interpretation. Preliminary report status should be regarded as NOT interpreted by the attending radiologist. Workstation ID: [id number] Final Dictated by:MD Zurita Tara Dictated DT/TM:05/20/2023 6:06 Resident:MD Zurita Tara Signed by:MD Bean Eric A Signed (Electronic Signature):05/20/2023 6:05 p * Exam Date Time Procedure Performing Provider Status 05/19/23 10:05 AM XR Pelvis Complete 3+ Views Ladarius Johnson; Final Notes: (XR Pelvis Complete 3+ Views) Reason For Exam: Further eval pelvis for pre op XR Pelvis Complete 3+ Views EXAMINATION: XR Pelvis Complete 3+ Views CLINICAL HISTORY: Further eval pelvis for pre op COMPARISON: May 14, 2023 FINDINGS: 3 views of the pelvis. There is a left total hip arthroplasty. Unchanged small amount of lucency around the proximal aspect of the femoral stem. Heterotopic ossification lateral to the trochanter noted. On the right there is prior resection of the femoral head and neck. Large amount of heterotopic ossification associated with the proximal femur chronic fracture deformity. Pubic symphysis and SI joints are symmetric. No acute osseous finding. Degenerative changes in included lower lumbar spine. IMPRESSION: Postoperative changes of both hips. No acute finding. Workstation ID: [id number] Final Dictated by:MD Hill Cristy N Dictated DT/TM:05/19/2023 10:40 Signed by:MD Hill Cristy N Signed (Electronic Signature):05/19/2023 10:39 * Exam Date Time Procedure Performing Provider Status 05/16/23 3:06 PM US Joint/Bursa Lw Jeb Arth/Asp/Inj Ri Lili Ojeda; Final Notes: (US Joint/Bursa Lw Jeb Arth/Asp/Inj Right) Reason For Exam: R hip/lateral proximal femur fluid collection US Joint/Bursa Lw Jeb Arth/Asp/Inj Right EXAMINATION: US Joint/Bursa Lw Jeb Arth/Asp/Inj Right CLINICAL HISTORY/INDICATION: R hip/lateral proximal femur fluid collection COMPARISON: Abdominal MRI 05/15/2023 TECHNIQUE: Attending radiologist: Dr. Hill Physician assistant paralegal: Sheng Kaiser INFORMED DISCUSSION: The procedure was discussed with the patient in detail followed by a discussion of reasonable procedure related risks, benefits, and alternatives to the procedure and all of the patient's questions were answered. General risk of bleeding, infection, damage to adjacent structures and pain were discussed. UNIVERSAL PROTOCOL: The patient's identity and site of aspiration were confirmed at a time out. PROCEDURE: The skin was prepped and draped in sterile fashion. Buffered lidocaine was utilized as a local anesthetic prior to placement of a 18 gauge 3 1/2 inch spinal needle into the right hip fluid collectionunder ultrasound guidance. 10 cc of bloody purulent fluid was aspirated from the right hip fluid collection. The patient tolerated procedure well without immediate complication. FINDINGS: 10 cc of bloody purulent colored fluid was aspirated from the right hip fluid collection joint and sent to laboratory. IMPRESSION: Image guided aspiration of right hip fluid collection. Sheng Kaiser PA-C performed the procedure. Dr. Hill was available if needed for the procedure. Supervision Statement:I provided direct supervision and was physically present on-site and immediately available and interruptible to provide assistance and direction throughout the performance of this procedure." Workstation ID: [id number] Final Dictated by:JILLIAN Kaiser Jesse A Dictated DT/TM:05/16/2023 4:52 Resident:JILLIAN Kaiser Jesse A Signed by:MD Hill Cristy N Signed (Electronic Signature):05/16/2023 4:51 p * Exam Date Time Procedure Performing Provider Status 05/15/23 7:16 PM MRI Pelvis w/ + w/o Contrast Marcus Alva jamie; Final Notes: (MRI Pelvis w/ + w/o Contrast) Reason For Exam: Eval infxn R girdlestone/L hip MRI Pelvis w/ + w/o Contrast EXAMINATION: MRI OF THE PELVIS WITH AND WITHOUT CONTRAST CLINICAL HISTORY: Eval infxn R girdlestone/L hip Chronically infected right total hip arthroplasty Right Girdlestone procedure Left total hip arthroplasty Currently admitted to [facility] spine for C5-C6 spondylolisthesis COMPARISON: Hip radiograph on 05/14/2023 CT on 11/28/2021 TECHNIQUE: Multiplanar multisequence MRI OF THE PELVIS WITH AND WITHOUT CONTRAST FINDINGS: Bone marrow: Diffuse red marrow hyperplasia. Girdlestone procedure on the right, with resection of the right femoral head and neck. Left total hip arthroplasty. There is edema and postcontrast enhancement of the right acetabulum at the articular surface with granulation tissue in the prior acetabular cup site. Soft tissue/bursa: Multilocular contiguous fluid collection with thickened peripheral enhancement that occupies the site of the right hip joint, measuring approximately 10.3 x 7.1 x 14.8 cm. Fluid collection extends from the hip joint to surround the proximal femur at the level of the anterior right thigh, with dissection through the channel of the removed hardware in the proximal right femur. Mild overlying soft tissue edema as well as reactive perimuscular enhancement. No significant LEFT hipjoint effusion. Muscles: Asymmetric fatty atrophy of the right gluteal and proximal thigh musculature. Perimuscularfluid and enhancement as above. Sacroiliac joints: Mild degenerative changes Pubic symphysis: Mild degenerative changes Viscera: Bilateral pelvic lymphadenopathy including right external iliac node measures 2.1 cm rightinguinal enlarged nodes, likely reactive to both. IMPRESSION: 1. Postsurgical changes of Girdlestone procedure involving the right hip. Large peripherally enhancing right hip joint effusion extending from hip joint to proximal thigh. If the procedure is remote the findings would be concerning for infection. 2. Signal abnormality of the right acetabulum and the right proximal femur. This may reflect postoperative granulation tissue. Chronic indolent infection not excluded, correlate with findings following fluid sampling. 3. Left total hip arthroplasty. Evaluation limited due to susceptibility artifact, however no evidence of hardware complication or large left hip joint effusion. 4. Right inguinal and pelvic lymphadenopathy likely reactive. Dr. Eze Del Valle is the dictating resident. Finalized reports status indicates that the attending has reviewed the images and report, and agrees with the interpretation. Preliminary report status should be regarded as NOT interpreted by the attending radiologist. Workstation ID: [id number] Final Dictated by:Eze Del Valle Dictated DT/TM:05/16/2023 11:49 Resident:Eze Del Valle Signed by:MD Hill Cristy N Signed (Electronic Signature):05/16/2023 11:48 * Exam Date Time Procedure Performing Provider Status 05/14/23 1:17 PM MRI Spine Cervical w/ + w/o Contrast Tamera Dumont; Final Notes: (MRI Spine Cervical w/ + w/o Contrast) Reason For Exam: eval spondy of C5-C6 MRI Spine Cervical w/ + w/o Contrast EXAMINATION: MRI Spine Cervical w/ + w/o Contrast CLINICAL HISTORY: eval spondy of C5-C6 COMPARISON: Outside CT scans 05/13/2023 dating back to 02/01/2023 FINDINGS: Study is moderate to markedly compromised due to motion artifacts. Alignment: Partial straightening of cervical lordosis. Redemonstration of grade 2 anterolisthesis C5 on C6. Vertebrae: Significant type I endplate changes at C5-6. Undisplaced fracture through the left C6 transverse process is not evaluated on MRI secondary to motion and technique. There is periarticular edema and enhancement involving left C5-6 facet joint which corresponds to findings seen on CT scan with fragmentation of the superior articular facet of C6.Mild periarticular edema and enhancement is also noted involving the right C5-6 facet joint. Otherwise marrow signal appears unremarkable. Vertebral body heights are preserved. Spinal cord: Grossly unremarkable, within the limitations of motion. Posterior fossa: normal position and configuration of the cerebellar tonsils. Prevertebral space: No prevertebral collection. Axial interbody analysis: C2-C3: No significant central canal or foraminal stenosis. C3-C4: Spondylotic ridging with bilateral uncovertebral spurring resulting in mild central canal stenosis and moderate left foraminal stenosis. C4-C5: Spondylotic ridging with mild uncovertebral spurring and left greater than right facet arthropathy. This results in [id number] central canal stenosis and moderate left foraminal stenosis. C5-C6: C5 on C6 anterolisthesis. Moderate central canal stenosis. At least mild to moderate lateralforaminal stenosis. C6-C7: Spondylotic ridging with uncovertebral spurring and mild facet arthropathy. This results in mild central canal stenosis and mild bilateral foraminal stenosis C7-T1: No significant spinal canal or neural foraminal stenosis. IMPRESSION: 1. Exam is moderate to markedly limited due to motion. 2. Redemonstration of grade 2 anterolisthesis C5 on C6 with superimposed degenerative changes resulting in at least moderate central canal stenosis. Significant degenerative type I endplate changes at C5-6. 3. Left greater than right C5-6 facet arthropathy with significant edema and postcontrast enhancement in the periarticular soft tissues as well as in left C5-6 articular facets. 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 Differential diagnosis is inflammatory arthropathy and less likely infective arthropathy. Recommend clinical and laboratory correlation. Workstation ID: [id number] Final Dictated by:MD Rivas Puneet S Dictated DT/TM:05/14/2023 1:54 Signed by:MD Rivas Puneet S Signed (Electronic Signature):05/14/2023 1:53 p * Exam Date Time Procedure Performing Provider Status 05/14/23 12:08 PM XR Hips 3-4 Views w/AP Pelvis Bilat Mary Malave; Final Notes: (XR Hips 3-4 Views w/AP Pelvis Bilat) Reason For Exam: s/p fall XR Hips 3-4 Views w/AP Pelvis Bilat EXAMINATION: XR Hips 3-4 Views w/AP Pelvis Bilat CLINICAL HISTORY: s/p fall COMPARISON: None FINDINGS: AP pelvis and crosstable lateral view of both hips. There is a left total hip arthroplasty. There is no complication of hardware. Heterotopic ossification lateral to the trochanter noted. On the right there is prior resection of the femoral head and neck. Large amount of heterotopic ossification associated with the proximal femur noted. Pubic symphysis and SI joints are symmetric. No acute osseous finding. Degenerative changes in included lower lumbar spine. IMPRESSION: Postoperative changes of both hips. No acute finding. Workstation ID: [id number] Final Dictated by:MD Xiao Pamela L Dictated DT/TM:05/14/2023 12:14 Signed by:MD Xiao Pamela L Signed (Electronic Signature):05/14/2023 12:12 * Exam Date Time Procedure Performing Provider Status 05/14/23 4:[address] Spine Cervical Consult Hilary Franco; Final Notes: (OO CT Spine Cervical Consult) Reason For Exam: review of outside imaging OO CT Spine Cervical Consult EXAMINATION: OO CT Spine Cervical Consult CLINICAL HISTORY: Review of outside imaging. History of progressive C5-6 spondylolisthesis noted on the imaging aftera fall COMPARISON: Outside CT cervical spine 04/14/2023 03/20/2023, 02/01/2023 TECHNIQUE: CT of the cervical spine were performed without intravenous contrast, coronal and sagittal reconstructions. FINDINGS: Alignment: Straightening of cervical lordosis. Gradually increasing anterolisthesis of C5 on C6 which is grade 2 on today's examination and was minimal on exam from 02/01/2023. Significant progression of bilateral facet arthropathy, left greater than right with gradual fragmentation of the superior articular facet of C6 best seen on sagittal image 35/51 giving an appearance of perched facet. Vertebrae: Undisplaced fracture through the left transverse process of C6 best noted on thin slice image #[id number]. Pre-vertebral space: Unremarkable Focused axial interbody analysis: No significant degenerative changes. Lung apices: No concerning pulmonary nodule. IMPRESSION: Undisplaced left C6 transverse process fracture. Recommend CT angiography of the neck to exclude vascular injury Gradually increasing grade 2 anterolisthesis of C5 on C6, was minimal on exam from 02/01/2023. Significant progression of bilateral facet arthropathy, left greater than right with gradual fragmentationof the left superior articular facet of C6 best giving an appearance of perched facet. Workstation ID: [id number] Final Dictated by:MD Rivas Puneet S Dictated DT/TM:05/14/2023 10:56 Signed by:MD Rivas Puneet S Signed (Electronic Signature):05/14/2023 10:55 Vital Signs Most recent to oldest [Reference Range]: 1 2 3 Height 157.48 cm (05/14/23 3:53 AM) Patient Weight 89.1 kg (06/08/23 5:31 AM) 91 kg (06/06/23 6:48 AM) 90.3 kg (06/05/23 6:35 AM) Body Mass Index 36.65 kg/m2 (05/14/23 3:53 AM) Temperature [36.5-37.9 DegC] 36.2 DegC *LOW* (06/08/23 5:31 AM) 36.2 DegC *LOW* (06/07/23 11:42 PM) 36.3 DegC *LOW* (06/07/23 8:22 PM) Heart Rate 93 bpm (06/08/23 5:31 AM) 79 bpm (06/07/23 11:42 PM) 74 bpm (06/07/23 9:11 PM) Respiratory Rate 12 br/min (06/08/23 5:31 AM) 12 br/min (06/07/23 11:42 PM) 12 br/min (06/07/23 8:22 PM) Blood Pressure 102/54mmHg (06/08/23 5:37 AM) 89/44mmHg (06/08/23 5:31 AM) 86/48mmHg (06/08/23 1:23 AM) Mean Blood Pressure 68 mmHg (06/08/23 5:37 AM) 56 mmHg (06/08/23 5:31 AM) 60 mmHg (06/07/23 11:42 PM) Cuff Pulse Pressure 48 mmHg (06/08/23 5:37 AM) 45 mmHg (06/08/23 5:31 AM) 37 mmHg (06/07/23 11:42 PM) BP Location # 1 Left Arm, Other: patient sat up (06/08/23 5:37 AM) Left Arm (06/08/23 5:31 AM) Left Arm (06/07/23 11:42 PM) Social History Social History Type Response Smoking Status Former Smoker, quit > 1 yr Sex Female Implantable Device List Procedure Provider Procedure Date Device Type Site Unknown Unknown 05/27/23 Unknown Unknown Device Identifier Serial Number Lot or Batch Number Manufacturing Date Expiration Date Distinct Identification Code MRI Safety Implantable Status Assigning Authority Unknown Unknown [id number] Unknown 12/28/25 Unknown Unknown Active Unknown Procedure Provider Procedure Date Device Type Site Unknown Unknown 05/20/23 Unknown Unknown Device Identifier Serial Number Lot or Batch Number Manufacturing Date Expiration Date Distinct Identification Code MRI Safety Implantable Status Assigning Authority Unknown Unknown [id number] Unknown 04/30/24 Unknown Unknown Active Unk nown Procedure Provider Procedure Date Device Type Site Unknown Unknown 05/18/23 Unknown Unknown Device Identifier Serial Number Lot or Batch Number Manufacturing Date Expiration Date Distinct Identification Code MRI Safety Implantable Status Assigning Authority Unknown Unknown n/a Unknown 03/11/28 Unknown Unknown Active Unkn own Unknown Unknown n/a Unknown Unknown Unknown Unknown Active Unkn own Unknown Unknown n/a Unknown Unknown Unknown Unknown Active Unkn own Cardiology * Contributor_system, [id number]: VERIFY, PERFORM Event Display: EKG Authored Date: [id number] Please click on link to see image. * Contributor_system, [email or web address]: VERIFY, PERFORM Event Display: EKG Authored Date: [id number] Please click on link to see image. * Contributor_system, [email or web address]: VERIFY, PERFORM Event Display: EKG Authored Date: [id number] Please click on link to see image. Anes H&P * DO Ambriz Jonathan: MODIFY DO Ambriz Jonathan: MODIFY, MODIFY DO Ambriz Jonathan: MODIFY, SIGN, VERIFY Event Display: Anes H&P Authored Date: [id number] Patient: KYM MURRIETA Age: 63 years Sex: Female : 1960 Associated Diagnoses: None Author: MD Sydney, Bennie Belcher Preoperative Information Pre-Operative Diagnosis: Right hip joint infection . Anesthiesia Preop Info: Procedure: RIGHT HIP I&D POSS ANTIBIOITC BEAD PLACEMENT, POSS WOUND VAC PLACEMENT VS CLOSURE Date: 05/27/23 07:30 Surgeons: MD Schneider Kevin James Diagnosis: . History of Present Illness 63-year-old, 89.9 kg, 157 cm female who has a right hip joint infection now status post I&D with antibiotic bead placement on 05/21 now presenting for I&D possible antibiotic bead placement with possible wound VAC placement versus closure of the right hip. She was transferred from [facility] secondary to a fall resulting in C5-C6 spondylolisthesis and underwent a C5-C6 ACDF on 05/18. She has a past medical history of atrial fibrillation currently on Eliquis and digoxin, HFpEF managedwith GDMT and no recent echoes on record, hypothyroidism, generalized anxiety disorder, and depression. She presents for the above procedure. Atrial fibrillation and PFpEF management not currently with any doctor, denies recent changes such as in health, wheelchair bound due to hip, denies orthopnea, denies lower extremity edema that is worsening. Anesthesia History:yes PONV:no Patient Complications:no Family History of Anesthesia Problems:no Previous airway: 05/28/2023 cervical discectomy and fusion: 7.0 mm oral endotracheal tube, easy mask airway, glide scope due to c-collar in place Current infusions: Normal saline maintenance IV fluid Antibiotics: Vancomycin scheduled, the cefepime scheduled Access: Single lumen PICC line - upper arm NPO Status: NPO overnight Labs: Sodium 129, potassium 5.0, bicarb 28, creatinine 0.57, GFR greater than 90, hemoglobin 8.7, hematocrit 26.9 Active type and cross for 2 units till 05/29/2023 Right hip joint aspiration culture positive for Staphylococcus aureus on 05/20/202305/25 chest x-ray XR Chest 1 View FINDINGS: Portable AP semiupright view of the chest. Right PICC with tip in lower SVC. Enlarged cardiac mediastinal silhouette. Normal pulmonary vasculature. No pleural effusion or pneumothorax. Partially visualized cervical hardware. Mildly dilated loops of bowel. IMPRESSION: 1. Right PICC with tip in lower SVC. Medical History Medical Devices: Medical Devices: none . Health Status Allergies: Allergic Reactions (Selected) Severe Mushrooms- Swollen tongue. Severity Not Documented Allergy Not found in Search- No reactions were documented. Bee sting- No reactions were documented. Synvisc- No reactions were documented.. Medications: Medication List (Selected) Documented Medications Documented BuSpar 10 mg oral tablet: 1 tab, PO, tid Cymbalta: Eliquis 5 mg oral tablet: 1 tab, PO, bid Metoprolol Succinate ER 100 mg oral tablet, extended release: 1 tab, PO, bid Multiple Vitamins oral tablet: 1 tab, PO, Daily Tylenol 325 mg oral tablet: 2 tab, PO, q4h, PRN: as needed for pain Vitamin B-12 1000 mcg oral tablet: 1 tab, PO, Daily atorvastatin: cyclobenzaprine 5 mg oral tablet: 1 tab, PO, bid, PRN: as needed for spasm digoxin 125 mcg (0.125 mg) oral tablet: 1 tab, PO, qAM, Hold for HR <60 doxepin: furosemide: levothyroxine 75 mcg (0.075 mg) oral tablet: 1 tab, PO, Daily lisinopril 5 mg oral tablet: 1 tab, PO, Daily omeprazole 20 mg oral delayed release tablet: 1 tab, PO, Daily rOPINIRole 0.25 mg oral tablet: TAKE 1 TABLET BY MOUTH AT BEDTIME. Histories Procedure History: B/L TKR on 07/26/2009 at 49 Years. gastric bypass in 2005 at 46 Years. section (SNOMED CT [id number]). Left knee scopes. Comments: 11/27/2012 16:41 CORNELLT - Angelica Cast X2: 1995 & 1997. 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 Former Smoker, quit > 20 yrs Other Tobacco Use: Never used other tobacco products Alcohol: occasional Recreational Drugs: denies . Physical Examination VS/Measurements: Vital Signs 05/26/2023 09:27 EST Temperature 36.2 DegC LOW Temperature Route Temporal Heart Rate 104 bpm Respiratory Rate 18 br/min Systolic Blood Pressure 95 mmHg Diastolic Blood Pressure 62 mmHg BP Location # 1 Left Arm BP Cuff Size Regular Mean Blood Pressure 71 mmHg Cuff Pulse Pressure 33 mmHg Oxygen Therapy Room air SpO2 100 % . Airway: Mallampati classification: I (soft palate, fauces, uvula, pillars visible). Mouth: Within normal limits, Teeth ( Within normal limits ). Head: Normocephalic. Neck: Supple, Full range of motion. Respiratory: Lungs are clear to auscultation, Respirations are non-labored. Cardiovascular: Normal rate, Regular rhythm. Anesthesiologist Assessment and Plan Problems: No previous anesthetic complications, No a/w concerns. Risk of major adverse cardiac event (Revised Cardiac Risk Index): 0 = 0.4%. Cardiovascular risk associated with the procedure: Low (<1%). Disposition: No further testing or evaluation indicated preoperatively, may proceed with procedure as scheduled. ASA Classification: Class III. Anesthetic Plan: Premedication: Intravenous. Anesthetic technique discussed: General anesthesia, Regional anesthesia. Induction discussed: Intravenously. Airway plan discussed: Laryngeal mask airway, Oral endotracheal tube. Risks discussed: Nausea-vomiting, Headache, Sore throat, Dental injury, Eye injury, Allergic reaction, Serious complications, Nerve damage, Aspiration. Informed consent: Signed by patient. History, Physical Exam, Assessment and Plan Completed: 05/26/2023 15:45:00, DO Ambriz Jonathan. Electronic Signature on File Electronically Reviewed/Signed by: Bennie Grimes MD Author Signature Dt/Tm:05/27/2023 06:27 AM Department of Anesthesia PMM * MD Santos Khaled A: PERFORM MD Santos Khaled A: PERFORM, SIGN MD Santos Khaled A: SIGN, VERIFY MD Santos Khaled A: VERIFY DO Bui Nola: MODIFY Event Display: Anes H&P Authored Date: [id number] Patient: KYM MURRIETA Age: 63 years Sex: Female : 1960 Associated Diagnoses: None Author: MD Santos Khaled A Preoperative Information Pre-Operative Diagnosis: Hip infection . Anesthiesia Preop Info: Procedure: RIGHT HIP I&D Date: 05/20/23 07:30 Surgeons: MD Wyatt, Song Oshea Diagnosis: . History of Present Illness Patient is a 63yo 90kg F with PMH afib (eliquis), HFpEF (GDMT), hypothyroidism, JACEY, and depression. She was transferred from [facility] due to a fall and C5-6 spondylisthesis. Patient is s/p C5-C6 ACDF on 05/18. She presented with hyponatremia and is being treated with uremia powder followed by Nephrology current sodium 127. Patient also had a prior total hip replacement with staph epi and Corynebacterium infection. She was originally treated with and Girdlestone and vancomycin/ceftriaxone. There continues to be elevated inflammatory markers with collection seen on imaging and is now scheduled for R hip I &D. Prior anesthesia complications: none documented Airway: GLidescope used due to C collar Recent Labs: CBC: on 05/19/2023 05:16 BMP: on 05/19/2023 07:58 8.3 125 89 20 11.7 786 122 26.0 5.1 25 0.88 Ca = 9.2 Echo: WU from 03/27/23 (from [facility], records now uploaded) -Ejection Fraction 60-65% -Left ventricle systolic function is normal. Right ventricle chamber size and systolic function aregrossly normal on limited evaluation -Moderate mitral regurgitation is present -Moderate tricuspid regurgitation is present -There is no evidence of valvular vegetation. Access: 22g Medical History Medical Devices: Medical Devices: none . Health Status Allergies: Allergic Reactions (Selected) Severe Mushrooms- Swollen tongue. Severity Not Documented Allergy Not found in Search- No reactions were documented. Bee sting- No reactions were documented. Synvisc- No reactions were documented.. Medications: Medication List (Selected) Documented Medications Documented BuSpar 10 mg oral tablet: 1 tab, PO, tid Cymbalta: Eliquis 5 mg oral tablet: 1 tab, PO, bid Metoprolol Succinate ER 100 mg oral tablet, extended release: 1 tab, PO, bid Multiple Vitamins oral tablet: 1 tab, PO, Daily Tylenol 325 mg oral tablet: 2 tab, PO, q4h, PRN: as needed for pain Vitamin B-12 1000 mcg oral tablet: 1 tab, PO, Daily atorvastatin: cyclobenzaprine 5 mg oral tablet: 1 tab, PO, bid, PRN: as needed for spasm digoxin 125 mcg (0.125 mg) oral tablet: 1 tab, PO, qAM, Hold for HR <60 doxepin: furosemide: levothyroxine 75 mcg (0.075 mg) oral tablet: 1 tab, PO, Daily lisinopril 5 mg oral tablet: 1 tab, PO, Daily omeprazole 20 mg oral delayed release tablet: 1 tab, PO, Daily rOPINIRole 0.25 mg oral tablet: TAKE 1 TABLET BY MOUTH AT BEDTIME. Histories Procedure History: B/L TKR on 07/26/2009 at 49 Years. gastric bypass in 2005 at 46 Years. section ([id number]). Left knee scopes. Comments: 11/27/2012 16:41 SHARLENE - Angelica Cast X2: 1995 & 1997. 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 Former Smoker, quit > 1 yr Other Tobacco Use: Never used other tobacco products Alcohol: Recreational Drugs: . Physical Examination VS/Measurements: Vital Signs 05/19/2023 12:51 EST Temperature 36.8 DegC Temperature Route Temporal Heart Rate 66 bpm Respiratory Rate 16 br/min Systolic Blood Pressure 125 mmHg Diastolic Blood Pressure 75 mmHg BP Location # 1 Left Arm BP Cuff Size Regular Mean Blood Pressure 87 mmHg SpO2 93 % . General: Alert and oriented, No acute distress. Airway: Mallampati classification: III (soft palate, base of uvula visible). Mouth: Within normal limits, Teeth ( Within normal limits ). Head: Normocephalic, Atraumatic. Neck: C-collar. Respiratory: Lungs are clear to auscultation, Respirations are non-labored, Breath sounds are equal. Cardiovascular: Normal rate, Regular rhythm. Anesthesiologist Assessment and Plan Problems: No previous anesthetic complications, No a/w concerns. Cardiac risk factors: CHF. Risk of major adverse cardiac event (Revised Cardiac Risk Index): 1 = 0.9%. ASA Classification: Class III. Anesthetic Plan: Anesthetic technique discussed: General anesthesia. Induction discussed: Intravenously. Airway plan discussed: Oral endotracheal tube. Risks discussed: Nausea-vomiting, Sore throat, Dental injury, Eye injury, Allergic reaction, Serious complications. Informed consent: Signed by patient. History, Physical Exam, Assessment and Plan Completed: 05/19/2023 14:35:00, MD Crystal, Malvin Rowe. Review / Management Results Review: Lab results 05/19/2023 07:58 EST Na 125 mmol/L LOW K 5.1 mmol/L Cl- 89 mmol/L LOW HCO3 25 mmol/L Anion Gap 11 mmol/L BUN 20 mg/dL Cret 0.88 mg/dL eGFR CKD-EPI 75 mL/min/1.73 m2 Glu 122 mg/dL HI Ca 9.2 mg/dL Osmolality 276 mOsm/kg . Electronic Signature on File Electronically Reviewed/Signed by: Fadia Santos MD Author Signature Dt/Tm:05/20/2023 07:11 AM Department of Anesthesia MICHELLE * MD Hurtado Ronald: MODIFY MD Hurtado Ronald: MODIFY, MODIFY DO Bui Nola: MODIFY DO Melendez Nathan Alexander: MODIFY, MODIFY DO Melendez Nathan Alexander: MODIFY, MODIFY DO Melendez Nathan Alexander: MODIFY MD Ken, Jihan H.: SIGN, VERIFY MD Ken, Jihan H.: VERIFY, MODIFY MD Rogers Abigail H.: MODIFY, PERFORM MD Ken, Jihan Peterson: PERFORM Event Display: Anes H&P Authored Date: Patient: KYM MURRIETA Age: 63 years Sex: Female : 1960 Associated Diagnoses: None Author: MD Rogers Abigail H. Preoperative Information Pre-Operative Diagnosis: Spondylolisthesis . Anesthiesia Preop Info: Procedure: C5-C6 ACDF Date: 05/15/23 07:30 Surgeons: MD Swanson Mark A Diagnosis: . History of Present Illness Patient is a 63yo 90kg F with a PMH of afib (eliquis), HFpEF (GDMT), hypothyroidism, JACEY, and depression. She was transferred from [facility] due to a fall and C5-6 spondylisthesis. Now presents forcervical ACDF. Of note, medicine was consulted for hyponatremia of 121 on admission. Nephrology also consulted and believe hyponatremia likely 2/2 hypervolemia in setting of heart failure. She has since resumed furosemide and Na has improved to 129. Prior anesthesia complications: None documented Airway: No prior airways documented Recent Labs: Na 129, K 5.3, Hgb 8.3, INR 1.2, PT 14.8 Echo: WU from 03/27/23 (from [facility], records now uploaded) -Ejection Fraction 60-65% -Left ventricle systolic function is normal. Right ventricle chamber size and systolic function aregrossly normal on limited evaluation -Moderate mitral regurgitation is present -Moderate tricuspid regurgitation is present -There is no evidence of valvular vegetation. TTE on 03/21/23 -Left ventricular systolic function is normal -EF = 60-65% -Flattened septum is consistent w/ RV pressure/volume overload -There is mild concentric left ventricular hypertrophy -The right ventricle is moderately dilated -The right ventricle systolic function is normal. -There is mild mitral regurgitation -Right ventricular sytolic pressure is elevated at 40-50 mmHg -Moderate pulmonary artery dilation Medical History Medical Devices: Medical Devices: none . Health Status Allergies: Allergic Reactions (Selected) Severe Mushrooms- Swollen tongue. Severity Not Documented Allergy Not found in Search- No reactions were documented. Bee sting- No reactions were documented. Synvisc- No reactions were documented.. Medications: Medication List (Selected) Documented Medications Documented BuSpar 10 mg oral tablet: 1 tab, PO, tid Cymbalta: Eliquis 5 mg oral tablet: 1 tab, PO, bid Metoprolol Succinate ER 100 mg oral tablet, extended release: 1 tab, PO, bid Multiple Vitamins oral tablet: 1 tab, PO, Daily Tylenol 325 mg oral tablet: 2 tab, PO, q4h, PRN: as needed for pain Vitamin B-12 1000 mcg oral tablet: 1 tab, PO, Daily atorvastatin: cyclobenzaprine 5 mg oral tablet: 1 tab, PO, bid, PRN: as needed for spasm digoxin 125 mcg (0.125 mg) oral tablet: 1 tab, PO, qAM, Hold for HR <60 doxepin: furosemide: levothyroxine 75 mcg (0.075 mg) oral tablet: 1 tab, PO, Daily lisinopril 5 mg oral tablet: 1 tab, PO, Daily omeprazole 20 mg oral delayed release tablet: 1 tab, PO, Daily rOPINIRole 0.25 mg oral tablet: TAKE 1 TABLET BY MOUTH AT BEDTIME. Histories Procedure History: B/L TKR on 07/26/2009 at 49 Years. gastric bypass in 2005 at 46 Years. section ([id number]). Left knee scopes. Comments: 11/27/2012 16:41 SHARLENE - Angelica Cast X2: 1995 & 1997. 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 Former Smoker, quit > 1 yr Other Tobacco Use: Never used other tobacco products Alcohol: Recreational Drugs: . Physical Examination VS/Measurements: Vital Signs 05/18/2023 08:58 EST MEWS Score 0 05/18/2023 08:52 EST MEWS Score 0 05/18/2023 08:52 EST MEWS Score 0 05/18/2023 08:52 EST Temperature 36.4 DegC LOW Temperature Route Temporal Heart Rate 83 bpm Heart Rate 83 bpm Respiratory Rate 16 br/min Systolic Blood Pressure 107 mmHg Diastolic Blood Pressure 68 mmHg SpO2 93 % 05/18/2023 06:57 EST MEWS Score 0 05/18/2023 06:44 EST Temperature 36.4 DegC LOW Temperature Route Temporal Heart Rate 87 bpm Respiratory Rate 18 br/min Systolic Blood Pressure 121 mmHg Diastolic Blood Pressure 86 mmHg BP Location # 1 Left Arm BP Cuff Size Regular Mean Blood Pressure 98 mmHg Cuff Pulse Pressure 35 mmHg Oxygen Therapy Room air SpO2 98 % , Weight 90 kg. General: Alert and oriented, Patient repeats questions though.. Airway: Mallampati classification: III (soft palate, base of uvula visible), neck in hard collar.. Mouth: Within normal limits, Teeth ( Within normal limits ). Neck: C-collar. Respiratory: Lungs are clear to auscultation, Respirations are non-labored. Cardiovascular: Normal rate, No murmur. Neurologic: Bilateral paraesthesia in Radial distribution. Also had weakness of left shoulder. Vascular Access: Peripheral: Gauge 22, Right arm. Anesthesiologist Assessment and Plan Problems: No previous anesthetic complications, No a/w concerns. Cardiac risk factors: CHF. Risk of major adverse cardiac event (Revised Cardiac Risk Index): 1 = 0.9%. ASA Classification: Class III. Anesthetic Plan: Anesthetic technique discussed: General anesthesia. Induction discussed: Intravenously. Airway plan discussed: Oral endotracheal tube. Special monitoring discussed: Arterial line. Risks discussed: Nausea-vomiting, Sore throat, Dental injury, Eye injury, Allergic reaction, Serious complications, Aspiration. Informed consent: Signed by patient. History, Physical Exam, Assessment and Plan Completed: 05/14/2023 20:59:00, MD Bryant, Hemant. Review / Management Results Review: Lab results 05/14/2023 14:58 EST Estimated CrCl 84.86 mL/min 05/14/2023 13:47 EST Sodium 129 mmol/L LOW Potassium 4.9 mmol/L Chloride 92 mmol/L LOW HCO3 28 mmol/L Anion Gap 9 mmol/L BUN 12 mg/dL Creatinine 0.73 mg/dL eGFR CKD-EPI >90 mL/min/1.73 m2 Glucose 91 mg/dL Calcium 9.3 mg/dL Phosphorus 3.4 mg/dL Albumin 2.8 g/dL LOW 05/14/2023 08:44 EST ABO/Rh A POSITIVE 05/14/2023 07:18 EST Estimated CrCl 101.55 mL/min 05/14/2023 07:00 EST Request of Physician Urine osmolity , Sodium urine random Action Taken YES 05/14/2023 06:59 EST Creatinine, Urine 35.84 mg/dL Sodium, Urine 58 mmol/L Urea Nitrogen, RanUr 334 mg/dL Osmolality, Urine 296 mOsm/kg 05/14/2023 06:23 EST Request of Physician Osmolality (serum) Action Taken YES 05/14/2023 06:22 EST Sodium 130 mmol/L LOW Potassium 4.6 mmol/L Chloride 92 mmol/L LOW HCO3 28 mmol/L Anion Gap 10 mmol/L BUN 12 mg/dL Creatinine 0.61 mg/dL eGFR CKD-EPI >90 mL/min/1.73 m2 Glucose 85 mg/dL Calcium 9.1 mg/dL Osmolality 269 mOsm/kg LOW WBC Count 11.23 K/uL HI Hemoglobin 8.3 g/dL LOW Hematocrit 25.9 % LOW RBC Count 4.29 M/uL MCV 60.4 fL LOW MCHC 32.0 g/dL MCH 19.3 pg LOW RDW 21.9 % HI Platelet Count 840 K/uL HI MPV 8.7 fL LOW Protime INR 1.7 HI Protime 19.8 seconds HI ALT 6 unit/L Bilirubin, Total 0.6 mg/dL Alkaline Phosphatase 182 unit/L HI AST 16 unit/L Hepatitis C Virus Ab REACTIVE Albumin 3.0 g/dL LOW Total Protein 8.1 g/dL Vitamin D, 25-Hydroxy 20 ng/mL LOW HbA1c 5.7 % HI (Modified) Estimated Average Glucose 117 mg/dL C Reactive Protein 17.34 mg/dL HI ESR >130 mm/hr HI ABO/Rh A POSITIVE Antibody Screen NEGATIVE Crossmatch Exp 05/17/2023 James Transfusion # NRQ Component Type RED CELLS # Units Ordered 0 BB Comments B Comments . Electronic Signature on File Electronically Reviewed/Signed by: Jihan Rogers MD Author Signature Dt/Tm:05/18/2023 09:45 AM Department of Anesthesia [facility] Surgical operation note * MD Wyatt, Song Oshea: MODIFY MD Wyatt, Song Oshea: MODIFY Event Display: .Operative Report Authored Date: [id number] OPERATIVE REPORT Name: KYM MURRIETA Patient Number: [id number] : 1960 Date of Service: 05/27/23 SURGEON: Song Schneider MD ATTENDING PATHOLOGIST(s): Jasmyne Freitas MD-Fellow Aristides Fraga MD-Resident PREOPERATIVE DIAGNOSIS: 1. 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 Right hip sinus tract with drainage 3. Osteomyelitis right proximal femur 4. Osteomyelitis right femoral shaft 5. Osteomyelitis right acetabulum POSTOPERATIVE DIAGNOSIS: same as above OPERATION PERFORMED: 1. Saucerization right acetabulum and posterior column 2. Saucerization right femoral shaft 3. Removal of deep antibiotic beads 4. Creation and insertion deep antibiotic beads right hip 5. Creation and insertion intramedullary antibiotic beads right femur shaft 6. Creation and insertion of intramedullary antibiotic beads right posterior column 7. Secondary closure of surgical incision 24 cm ANESTHESIA: General ANTIBIOTICS: Scheduled Vancomycin and Cefepime per Ortho ID recs COMPLICATIONS: None SPECIMENS: None ESTIMATED BLOOD LOSS: 100mL INDICATIONS: Kym Murrieta is a 63yF with Right femur osteomyelitis and Right hip abscess s/p priorGirdlestone procedure at an OSH. She presented with a draining sinus tract and residual fluid collection seen on MRI with osteomyelitis of the femur and acetabulum. She was taken to the OR on 05/20/23 for I&D and W[place] placement. We planned to return to OR today for repeat I&D and closure. Therisks, limitations, benefits and alternatives to all treatment options were discussed with the patient. The patient elected to proceed with the above listed procedures with Dr. Schneider on 05/27/23. Allquestions and concerns were answered and addressed. Informed consent was obtained and obtained. The surgical site was verified with the patient and marked. FINDINGS: no purulence encountered and overall clean wound IMPLANTS: 10ccs Genex beads with 1gm of Vancomycin and 80mg Gentamicin OPERATION: The patient was transferred to the operating room. The patient was intubated by anesthesia and positioned lateral on a radiolucent table with attention to padding of bony prominences. The patient's right lower extremity was then pre-cleansed with alcohol, sterilely prepped (DuraPrep and Betadine) and draped in standard orthopaedic fashion. A final time-out was conducted in accordance with [facility] protocol and all members of the surgical team agreed upon the details of the procedure. The patient's prior posterolateral wound was carefully examined. The prior strand of 37 PMMA antibiotic coated beads were removed in its entirety. There was no purulence identified. There was no active sources of bleeding. Using a pituitary rongeur we excised friable muscle and fascia. We used a curette to formally debride the posterior column and acetabulum and intramedullary in the residual proximal femur for saucerization to allow for adequate drainage and penetration of our antibiotics.. The incisions were thoroughly irrigated with sterile saline for 3 L. Hemostasis was achieved with electrocautery. We then placed 10ccs of Genex beads with 1gm of Vancomycin and 80mg Gentamicin intramedullary in the proximal femur and into the deep pelvis posterior column. Separate deep antibiotic beads were placed in the acetabulum including through the medial wall of the acetabulum. We then added 1.2gm of Tobramycin powder in the deep tissues. We placed a 19 Gigi drain in the deep tissues and a 10Fr Hemovac in the superficial tissues and sutured these in place with 3-0 Nylon. The deep fascia was closed with interrupted 0 PDS sutures. We then placed 500mg doxycycline powder in the subcutaneous tissues to act as a sclerosing agent to help manage the space. The subcutaneous tissue was closed with interrupted 2-0 Monocryl sutures, followed by interrupted horizontal mattress sutures in the skin with 3-0 Nylon. The operative extremity was cleansed and sterile dressings were applied (Primapores). At the conclusion of the procedure the patient had soft compartments and palpable pulses in the extremity. The patient was extubated by anesthesia and transferred to PACU in stable condition. Dr. Schneider was present for the entire duration of the procedure. Post-Operative Plan: -Management per orthopaedics -PT/OT: Weight-bearing as tolerated with the right lower extremity -Post-Operative Antibiotics: Cefazolin 2g IV q8H per Ortho ID recs -DVT PPX: Lovenox 40 mg BID beginning on 05/27/23 at 2100 -Post-Operative X-Rays: None -Chen: Will plan to remove on POD1 -Drain: Hemovac drain and Gigi drain to the right hip (will remove when output <30 cc per two consecutive q8H shifts) -Dressing: Primapore to the right lower extremity to be changed on POD2 -Pain control -Advance diet as tolerated; will saline lock IV fluid with adequate PO intake -Disposition: Plan to d/c once final IV antibiotic recommendations per Ortho ID are in and we have home health infusions set up. Will plan to see in clinic in 2 weeks for a wound check. Will schedulefollow up closer to discharge. Jasmyne Freitas MD I was present and scrubbed for critical portions of the procedure and immediately available during noncritical portions. I agree with the operative report as written by my resident/fellow which I have personally reviewedwith addenda made as necessary. Song Schneider MD DPT Orthopaedic Trauma [facility] 05/28/2023 09:33:03 Electronic Signature on File Electronically Reviewed/Signed by: Jasmyne Freitas MD Author Signature Dt/Tm:05/27/2023 09:51 AM Resident Division of Orthopaedics Electronically Reviewed/Signed by: Song Schneider MD Cosigner Signature Dt/Tm: 05/28/2023 09:33AM Division of Orthopaedics [facility] * MD Wyatt, Song Oshea: MODIFY MD Wyatt, Song Oshea: MODIFY, MODIFY MD Wyatt, Song Oshea: MODIFY, MODIFY, MODIFY, MODIFY MD Zena, Jasmyne Alatorre: MODIFY Event Display: .Operative Report Authored Date: OPERATIVE REPORT Name: KYM MURRIETA Patient Number: [id number] : 1960 Date of Service: 05/20/23 SURGEON: Snog Schneider MD ATTENDING PATHOLOGIST(s): Jasmyne Freitas MD-Fellow Damion Trejo MD-Resident PREOPERATIVE DIAGNOSIS: 1. 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 Right hip sinus tract with drainage 3. Right hip retained abscess 4. Osteomyelitis right proximal femur 5. Osteomyelitis right femoral shaft 6. Osteomyelitis right acetabulum POSTOPERATIVE DIAGNOSIS: same as above OPERATION PERFORMED: 1. Saucerization right proximal femur with proximal femur resection 2. Saucerization right acetabulum and posterior column 3. Saucerization right anterior column and ilium, separate incision 4. Saucerization right femoral shaft 5. Creation and insertion deep antibiotic beads right hip 6. Application NPWT 32 x 16 x 10 cm ANESTHESIA: General ANTIBIOTICS: 2g Ancef COMPLICATIONS: None SPECIMENS: gram stain, aerobic/anaerobic/fungal/AFB x 3, sinus tract sent for permanent, tissue culture x 1 from deep femur ESTIMATED BLOOD LOSS: 700mL INDICATIONS: Kym Murrieta is a 63yF with Right femur osteomyelitis and Right hip abscess s/p priorGirdlestone procedure at an OSH. She presented with a draining sinus tract and residual fluid collection seen on MRI with osteomyelitis of the femur and acetabulum. The risks, limitations, benefits and alternatives to all treatment options were discussed with the patient. The patient elected to proceed with the above listed procedures with Dr. Schneider on 05/20/23. All questions and concerns were answered and addressed. Informed consent was obtained and obtained. The surgical site was verified with the patient and marked. FINDINGS: purulent fluid surrounding the femur, resection of 8cm segment of retained proximal femurwith moth eaten appearance consistent with osteomyelitis, significant destruction of acetabulum medially consistent with osteomyelitis IMPLANTS: A strand of 37 PMMA beads with 2.2gm of Tobramycin and 2gm of Vancomycin on a #1 Prolene OPERATION: The patient was transferred to the operating room. The patient was intubated by anesthesia and positioned lateral on a radiolucent table with attention to padding of bony prominences. The patient's right lower extremity was then pre-cleansed with alcohol, sterilely prepped (DuraPrep) anddraped in standard orthopaedic fashion. A final time-out was conducted in accordance with [facility] protocol and all members of the surgical team agreed upon the details of the procedure. A posterolateral incision was made along the posterior third of the greater trochanter curving proximally towards the PSIS for a Caitlin Langenbach approach. The draining sinus tract was excisionally debrided in an elliptical fashion. This was sent for permanent specimen and tagged with a 2-0 nylon suture distally for orientation. Skin and subcutaneous tissues were sharply incised with a 10 blade.The IT band distally and gluteal fascia proximally was split along the midline with curved Snowden scissors. The residual gluteus patrice muscle was split in the midline along its raphe. Hemostasis was achieved with electrocautery. We then carefully elevated the vastus lateralis off of the lateral femur. Upon doing so we encountered the fluid pocket seen on MRI. This fluid was sent for gram stain/aerobic/anaerobic/fungal/AFB. We then identified our 8cm segment as determined pre operatively for resection. Using a sagittal saw we made our distal cut. We then carefully resected the proximal femur from the adherent soft tissues. This portion of the femur was significantly moth eaten consistent with osteomyelitis. This was swabbed and also sent for culture. We then carefully excised remaining heterotopic ossification with a rongeur. This was also sent for tissue cultures. There was adherent soft tissue retained within the acetabulum which was excised. There was no medial wall to the acetabulum from the patients prior procedures. We then used a Barnhart elevator to carefully expose the ischium distally and intact ilium proximally. We then used a 3.5mm drill bit to make multiple drill holes in the posterior column for saucerization to allow for adequate drainage and penetration of our antibiotics. We connected the drill holes with a rongeur making a cortical window to allow for adequate debridement of cancellous bone of the posterior column. We then placed a ball tip guide wire into the femoral canal in an antegrade fashion. We then sequentially reamed the femur to 17mm. There was retained purulent and fibrinous tissue within the proximal femoral shaft. This acted as saucerization of the femoral shaft seperate from our proximal femur sa ucerization and excision. A separate curved incision was made from the ASIS along the posterior border of the gluteus medius pillar along the iliac crest. Skin and subcutaneous tissues were incised with a 10 blade. The muscular interval between the gluteus muscles and external oblique muscles was incised with electrocautery. The external oblique muscle was subperiosteally elevated from the iliac crest and the iliacus was elevated with a Barnhart elevator subperiosteally along the inner table. We continued with blunt dissection to the inferior SI joint medially. We continued anteromedially at the pelvic brim to the beginning of the iliopectineal eminence. The iliopectineal fascia was taken down bluntly with a Barnhart elevator. We then placed a blunt Michelle retractor over the pelvic rim distally. We identified retained infection overlying the anterior column of the acetabulum. We then used a 3.5mm drill bit to make 3 consecutive holes on the superior portion of the anterior column to saucerize the area. We used similar technique to access the cancellous bone of the anterior column and debride the infected bone at thislocation. The incision was thoroughly irrigated with sterile saline for 3L. A 10 Fr Hemovac drain was placed in the deep tissues and secured in place with 3-0 Nylon. 1gm of Vancomycin and 1.2mg of Tobramycin was placed in the incision. The deep fascia was closed with interrupted and running 0-PDS garcia tures. The subcutaneous tissue was closed with interrupted and running subcuticular 2-0 Monocryl sutures, followed by interrupted horizontal mattress sutures in the skin with 3-0 Nylon. The operativeextremity was cleansed and sterile dressings were applied (Primapores). We then thoroughly irrigated the Caitlin incision and irrigated the femoral canal with the canal broadband installer with 6 liters of normal saline. We then placed a strand of 37 PMMA beads with 2.2gm of Tobramycin and 2gm of Vancomycin on a #1 Prolene in the deep tissues of the Caitlin approach. We then placed 3 large wound vac black foam sponges in the wound and stapled them in place with Ioban connected to 125mmHg low continuous suction. The patient was extubated by anesthesia and transferred to PACU in stable condition. Dr. Schneider was present for the entire duration of the procedure. Post-Operative Plan: -Management per primary team (orthopaedic spine service) -Maintain wound vac to the right lower extremity. Will plan to change in the OR. -PT/OT: Weight-bearing as tolerated with the right lower extremity -Post-Operative Antibiotics: Ancef 2g IV q8H pending ortho ID recommendations. Will follow culture results. -DVT PPX: Hold for now from an orthopaedic spine standpoint in the post operative period. Will resume when able. -Post-Operative X-Rays: AP Pelvis and 2vws Right femur ordered for PACU -Chen: Continue for now. May remove on POD1 from and ortho trauma standpoint. -Drain: Hemovac drain to the right hip (will remove when output <30 cc per two consecutive q8H shifts) -Dressing: Primapore to the right lower extremity -Pain control -Advance diet as tolerated; will saline lock IV fluid with adequate PO intake -Disposition: pending return to the OR for repeat debridement Right hip, possibly Saturday. Will provide further updates regarding timing when able. Jasmyne Freitas MD I was present and scrubbed for critical portions of the procedure and immediately available during noncritical portions. I agree with the operative report as written by my resident/fellow which I have personally reviewedwith addenda made as necessary. Song Schneider MD DPT Orthopaedic Trauma [facility] 05/20/2023 15:20:41 Electronic Signature on File Electronically Reviewed/Signed by: Jasmyne Freitas MD Author Signature Dt/Tm:05/20/2023 11:59 AM Resident Division of Orthopaedics Electronically Reviewed/Signed by: Song Schneider MD Cosigner Signature Dt/Tm: 05/20/2023 05:17PM Division of Orthopaedics KTA * MD Kkii, Nghia Saba: PERFORM Event Display: .Operative Report Authored Date: [id number] OPERATIVE REPORT Name: KYM MURRIETA Patient Number: [id number] : 1960 Date of Service: 05/18/2023 ATTENDING: Nghia Swanson MD SERVICE: Orthopaedic Surgery PREOPERATIVE DIAGNOSIS: 1. Chronic C5-C6 facet fracture subluxation POSTOPERATIVE DIAGNOSIS: Same PROCEDURE PERFORMED: 1. Closed reduction of C5-C6 facet fracture subluxation via traction 2. Anterior cervical discectomy C5-C6 3. Anterior cervical fusion C5-C6 4. Anterior cervical instrumentation C5-C6 5. Structural allograft x1 6. Application removal of Sadler-Mark tongramona SURGEON: Nghia Swanson MD ATTENDING PATHOLOGIST(s): Nithin Amado MD ANESTHESIA: General via endotracheal tube ESTIMATED BLOOD LOSS: Less than 50 cc DRAINS: 7 mm flat EVONNE x1 IMPLANTS: DePuy skyline anterior cervical plate and VG 2 structural allograft SPECIMENS: None COMPLICATIONS: None FINDINGS: We were unable to reduce the subluxation with positioning only. We were able to reduce the facet subluxation with approximately 30 pounds of traction. INDICATIONS: Kym is a 63-year-old female with a chronic C5-C6 facet fracture subluxation that worsened after a ground-level fall. She had evidence of this fracture subluxation dating back to the summer but had a recent fall which resulted in increase in translation to 50%. Patient really did nothave any symptoms of this but had clear progression on imaging. Discussed treatment options with her. We recommended surgical treatment of form of anterior cervical discectomy and fusion after closedreduction. The risks, benefits, and potential complications of the procedure were discussed with the patient. Risks included but were not limited to infection, bleeding, neurologic injury which may take the form of upper and/or lower extremity weakness, upper and/or lower extremity paralysis, upperand/or lower extremity sensory dysfunction, upper and/or lower extremity pain or bowel bladder dysfunction. We discussed the possibility of pseudoarthrosis, hardware failure, adjacent segment degeneration, and the potential need for further surgical intervention. We discussed the possibility that his symptoms may not improve with surgery and that his symptoms could potentially be worse following surgery. Patient expressed understanding risks and chose proceed with operative intervention DESCRIPTION OF OPERATIVE PROCEDURE: Patient was identified in her hospital room. Her anterior cervical region was marked appropriately. She was brought back to the operating room where general anesthesia was induced and endotracheal tube placed secured with her cervical collar in place using strictcervical spine precautions. Chen catheter was inserted. She was placed supine on the operating room table. All bony prominences were well-padded. A towel roll was placed longitudinally between her scapula to assist with visualization. Her arms were well-padded tucked at her sides. Shoulders were taped in a slightly depressed position to assist with visualization. Baseline neuromonitoring tracings were obtained. AP and lateral fluoroscopic images were used to confirm the position of the vertebrae. There was still approximately 50% subluxation of C5 on C6. We placed Sadler-Wells tongs on the patient's gone a standard fashion after placing Betadine ointment on the tips. We then sequentially added weight starting with 15 pounds and then going up to 30 pounds gradually. This resulted in nearcomplete reduction of the subluxation of C5 on C6. No hair removal was necessary. Her anterior cervical region was then prepped and draped in usual sterile fashion with alcohol, Betadine scrub, and Betadine paint. Surgical timeout was completed. We determine the appropriate deposition of the incision via superficial landmarks. A transverse incision was made at the level of the cricothyroid cartilage centered over the medial border of the sternocleidomastoid muscle belly. Skin and subtenons tissues were dissected down to the platysma which was split in line with the skin incision. Identified the medial border of the sternocleidomastoid muscle belly and deep dissection was carried out medial to it. Blunt dissection took us through the layers of the deep cervical fascia keeping the trachea and esophagus medial and the carotid sheath lateral. Blunt dissection took us down to the anterior portion of the sp ine where the prevertebral fascia was elevated incised and bluntly dissected off the anterior portion of the spine. A lateral localizing fluoroscopic image was obtained to confirm the level of our dissection. Once we confirm where the appropriate level and that we had maintained reduction the longus coli muscle bellies were elevated bilaterally. Self-retaining anterior cervical retractor was placed with the teeth of blades below the longus muscle bellies. Grand View distraction pins were placed in the C5 and C6 vertebral bodies and a small amount of distraction applied. Operating microscope was sterilely draped and brought in the field. The entire discectomy was performed under microscopic visualization. Anterior annulus was incised sharply with a knife. Disc material was then removed with a combination of cervical curettes pituitary and Kerrison rongeurs. We remove disc and endplate cartilage back to the posterior longitudinal ligament which was intact. We removed disc and endplate cartilage out to the midportion the uncinate process bilaterally. Endplate cartilage was scraped of the cervical curettes. We once again assessed our reduction via AP and lateral fluoroscopic imaging. We determine the appropriate size graft using template spacers. Appropriate size VG to allograft was then brought from the bone bank. This dropped sterilely on the field and thawed in antibiotic saline. The graft was then impacted into the C5-6 disc space under lateral fluoroscopic imaging. Distraction was released. The reduction was maintained. Grand View distraction pins were then removed. Appropriate length equal plus anterior cervical plate was chosen. Was placed in the anterior portion of the spine. Held in place with a holding pin. 14 mm screws were then placed to each into the C5 and C6 vertebral bodies through the plate. Screws were advanced to sit flush with the anterior portion of the plate. All of 4 screws had their locking mechanisms appropriately engaged. Deep retractor was removed. Final AP and lateral fluoroscopic images were obtained. Wound was irrigated with copious amounts antibiotic saline. A 7 mm flat EVONNE was placed in the anterior portion of spine and brought out the lateral aspect of the incision. Platysma was closed with 2-0 Vicryl sutures. Skin was closed with running 4-0 Monocryl. Mastisol, Steri-Strips, 4 x 4's, and foam tape were placed as a dressing. Patient mikey ated the procedure well was extubated in the room and transferred to recovery room in stable condition. Nghia Fleming, the attending surgeon, performed the entire procedure on Mrs. Murrieta with the assistance of Dr. Amado. There were no changes to neuro monitoring throughout the course of the case. Please see a copy of the neuro monitoring record in the patient's chart for details. Electronic Signature on File Electronically Reviewed/Signed by: Nghia Swanson MD Author Signature Dt/Tm:06/03/2023 01:56 PM Division of Orthopaedics [facility] ID Ortho Inpt Consult * MD Ozzie, Ken: PERFORM, MODIFY, MODIFY, MODIFY MD Valery, Kira: MODIFY Event Display: ID Ortho Inpt Consult Authored Date: [id number] ID ORTHO INPATIENT CONSULTATION REPORT Name: KYM MURRIETA Patient Number: [id number] : 1960 Date of Admission: 05/14/2023 Date of Service: 05/17/2023 REQUESTING PHYSICIAN'S NAME: MD Swanson Mark A REASON FOR CONSULTATION: Right wales hip septic arthritis with overlying abscess ASSESSMENT: _ Ms. 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 Problem List 1. Right hip LOIS s/p Girdlestone procedure c/b septic arthritis with overlying abscess - s/p I&D on 05/16 with drainage of 10cc bloody purulent fluid - WBC 8.5 , Tmax 36.9 C , ESR > 130 and CRP 17.3 - She is afebrile, hemodynamically stable with no leukocytosis, and the elevated inflammatory markers could be exaggerated in the setting of recent fall. Hence will hold off any antibiotics at this point in time to ensure we are able to get reliable cultures from surgery of the hip next week. 2. Hx of L LOIS - s/p revision about 1 year ago -On suppressive therapy, however not taking for last few months since she has ran out RECOMMENDATIONS: 1. Hold off antibiotics at this time 2. If she becomes hemodynamically unstable, has worsening leukocytosis or spikes fevers, can start empiric broad spectrum antibiotics. 3. Pleas obtain cultures from the surgery; including aerobic, anaerobic, fungal and AFB cultures. ID will sign off at this point in time please reconsult when right hip surgery is done next week. HPI: Ms. 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 after recent fall. She reports having bilateral LOIS, notes the R LOIS was about 6 years ago and L LOIS bout 2 years ago.Notes having total of 5 surgeries on the right hip after LOIS due to recurrent infections requiring IV antibiotics for 6-8 weeks at a time with last being a Girdlestone procedure about 2 years ago. Sates the L LOIS required one revision procedure about 1 year ago. She states this episodes started about 4 months ago, as it always does progressively worsening hip pain with some right hip swelling over the past 2-3 weeks. Denies any fevers, chills, nausea, vomiting, abdominal pain, diarrhea. She does have 2 cats at home who are about 11 months old but notes they have not scratched or bitten her. She notes not being in water bodies, including swimming pool, lakes, [place] or beaches. She states being able to walk with walker for short distances but requires a motorized wheel chair for longer distances. She fell on 05/14/23; she was attempting to transfer into her power wheelchair from walker but fellbecause she sat on the edge. She hit her head on the floor. Hence she have cervical CT scan done toevaluate her neck pain noted to have worsened chronic C5-C6 spondylolisthesis. Hence admitted to [facility] for further evaluation and management of her cervical spine. On admission; Vitals: Temp 36.5 C, BP 118/65, RR 18, HR 82, 94% on RA Labs: WBC 11.23, Cr 0.78, CrCl 79, ESR > 130, CRP 17.3, A1c 5.7 , HCV Ab positive Imaging: MRI pelvis with contrast (05/15); Showed multilocular fluid collection with thickened peripheral enhancement, measuring 10.3 x 7.1 x 14.8 cm. Fluid collection extended from beatriz hip joint to surround the proximal femur at the level of the anterior right thigh, with dissection through the channel of the removed hardware in the proximal right femur. Micro: 05/16 Aspiration fluid; gram stain no organisms, no PMNs, 05/14 Blood cultures; no growth in2 days Surgery: On 05/16; She had US guided aspiration of the right hip abscess; when 10cc of bloody purulent fluid was aspirated and sent for cultures. PAST MEDICAL HISTORY: Problems: Heart failure Afib Thalassemia Asthma Contusion of left knee S/P total knee replacement Orthostatic hypotension Puncture wound of foot Shoulder pain Cervicalgia Bipolar Arthritis HTN (hypertension) Depression Knee pain, bilateral Foot pain, left SOB (shortness of breath) Acid reflux Weight gain Hospital Day: 3 Surgical Hospital Day/Procedure: No procedures found MEDICATIONS: Active Inpt Meds: acetaminophen 1,000 mg PO q8h busPIRone (BuSpar) 10 mg PO tid digoxin 125 mcg PO qAM docusate-senna (Senna S) 2 tab PO bid doxepin 100 mg PO qhs enoxaparin (Lovenox) 30 mg subQ q12h furosemide 40 mg PO Daily levothyroxine 75 mcg PO Daily metoprolol (metoprolol succinate (ER)) 100 mg PO bid pantoprazole (Protonix) 40 mg PO Daily polyethylene glycol 3350 (MiraLax) 17 g PO Daily Active PRN Meds: ondansetron 4 mg IV Push q6h oxyCODONE 5 mg PO q4h oxyCODONE 10 mg PO q4h oxyCODONE 2.5 mg PO q4h Active IV Meds: None Allergies and Sensitivities: mushrooms(swollen tongue) Allergy Not found in Search Synvisc Bee sting SOCIAL HISTORY: _ FAMILY HISTORY: _ ROS: (Nghia with an X to the left of the System if asked and negative; otherwise detail under Symptoms) System Symptoms (details) _ Constitutional _ X Eyes _ X Ears, Nose, Mouth, Throat _ X Cardiovascular _ X Respiratory _ X Genitourinary _ X Gastrointestinal _ Musculoskeletal right hip pain X Skin _ _ Neurologic _ _ Psychiatric _ _ Endocrine _ _ Hematologic/Lymphatic _ _ Allergic/Immunologic _ VITAL SIGNS AND EXAM: Vitals: Last Updated 05/17/23 06:42 Weights: Last Updated 05/14/23 03:53 Date Temp Pulse BP RR SpO2 FIO2 Date Wt(kg) Wt(lb) 05/17 06:42 36.4 94 126/85 18 95 RA 05/14 03:53 90.9 200 05/16 23:47 36.9 85 117/75 18 97 RA 05/14 03:53 90.9 200 05/16 21:49 72 05/16 21:05 36.3 82 117/67 19 98 05/16 16:28 36.7 80 123/94 18 99 RA 24 Hr Tmax: 36.9 at 05/16 23:47 36 Hr Tmax: 36.9 at 05/16 23:47 Vital Signs are the last 5 in the past 48 hours. Weights display the last 5 within 7 days. Initial Wt: 05/14 90.9 kg 200 lb EXAM: General Appearance: not in acute distress, HEENT: anicteric sclera, no subconjunctival hemorrhage, no oral ulcers, Neck: Cervical brace in place Lymph Nodes: no lymphadenopathy Lungs: CTAB, no wheezes or crackles Heart: RRR, S1 S2 normal, no murmurs, no gallops Abdomen: Soft, non tender, no rebound , no guarding, normal bowel sounds Extremities: Right hip area with mild swelling , no warmth or redness noted, mild tenderness noted,there are chronic bilateral LE ulcers which are not actively infected but mild serous discharge seen. Neurologic: AAOX3 LABS: Most Recent Lab Results over the last 24 Hours: BMP: on 05/17/2023 00:02 129 95 20 157 5.3 23 0.82 Ca = 8.9 eGFR CKD-EPI: 81 Most Recent 24hr Labs as of 05/17 0117 Estimated CrCl 75.54 05/17 0002 Anion Gap 11 eGFR CKD-EPI 81 05/16 1724 Mg 2.0 PO4 4.5 Dig 1.4 TSH 2.12 05/16 1722 INR 1.2 H PT 14.8 H 05/16 1623 Anaerobe.Cultur Prelim: Fluid.Cx Prelim: Fungus.Culture, Prelim: 05/16 1513 BF Source See Flowsheet Baso,fl 0 Eos,fl 0 Lymph,fl 0 [place] [address] Neut,fl 98 OtherMono,fl 0 RBC,fl >46164 Baxter/Mac/Meso, 2 Fluid Container See Flowsheet 05/16 1316 Na (u) <11 Osmol (u) 240 OTHER LABS: RELEVANT IMAGING: Xray of Hips (05/14/2023) FINDINGS: AP pelvis and crosstable lateral view of both hips. There is a left total hip arthroplasty. There is no complication of hardware. Heterotopic ossification lateral to the trochanter noted. On the right there is prior resection of the femoral head and neck. Large amount of heterotopic ossification associated with the proximal femur noted. Pubic symphysis and SI joints are symmetric. No acute osseous finding. Degenerative changes in included lower lumbar spine. IMPRESSION: Postoperative changes of both hips. No acute finding. MRI cervical spine with and without contrast (05/14/2023) FINDINGS: Study is moderate to markedly compromised due to motion artifacts. Alignment: Partial straightening of cervical lordosis. Redemonstration of grade 2 anterolisthesis C5 on C6. Vertebrae: Significant type I endplate changes at C5-6. Undisplaced fracture through the left C6 transverse process is not evaluated on MRI secondary to motion and technique. There is periarticular edema and enhancement involving left C5-6 facet joint which corresponds to findings seen on CT scan with fragmentation of the superior articular facet of C6.Mild periarticular edema and enhancement is also noted involving the right C5-6 facet joint. Otherwise marrow signal appears unremarkable. Vertebral body heights are preserved. Spinal cord: Grossly unremarkable, within the limitations of motion. Posterior fossa: normal position and configuration of the cerebellar tonsils. Prevertebral space: No prevertebral collection. Axial interbody analysis: C2-C3: No significant central canal or foraminal stenosis. C3-C4: Spondylotic ridging with bilateral uncovertebral spurring resulting in mild central canal stenosis and moderate left foraminal stenosis. C4-C5: Spondylotic ridging with mild uncovertebral spurring and left greater than right facet arthropathy. This results in [id number] central canal stenosis and moderate left foraminal stenosis. C5-C6: C5 on C6 anterolisthesis. Moderate central canal stenosis. At least mild to moderate lateralforaminal stenosis. C6-C7: Spondylotic ridging with uncovertebral spurring and mild facet arthropathy. This results in mild central canal stenosis and mild bilateral foraminal stenosis C7-T1: No significant spinal canal or neural foraminal stenosis. IMPRESSION: 1. Exam is moderate to markedly limited due to motion. 2. Redemonstration of grade 2 anterolisthesis C5 on C6 with superimposed degenerative changes resulting in at least moderate central canal stenosis. Significant degenerative type I endplate changes at C5-6. 3. Left greater than right C5-6 facet arthropathy with significant edema and postcontrast enhancement in the periarticular soft tissues as well as in left C5-6 articular facets. 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 Differential diagnosis is inflammatory arthropathy and less likely infective arthropathy. Recommend clinical and laboratory correlation. MRI of pelvis with contrast (05/15/2023) FINDINGS: Bone marrow: Diffuse red marrow hyperplasia. Girdlestone procedure on the right, with resection of the right femoral head and neck. Left total hip arthroplasty. There is edema and postcontrast enhancement of the right acetabulum at the articular surface with granulation tissue in the prior acetabular cup site. Soft tissue/bursa: Multilocular contiguous fluid collection with thickened peripheral enhancement that occupies the site of the right hip joint, measuring approximately 10.3 x 7.1 x 14.8 cm. Fluid collection extends from the hip joint to surround the proximal femur at the level of the anterior right thigh, with dissection through the channel of the removed hardware in the proximal right femur. Mild overlying soft tissue edema as well as reactive perimuscular enhancement. No significant LEFT hipjoint effusion. Muscles: Asymmetric fatty atrophy of the right gluteal and proximal thigh musculature. Perimuscularfluid and enhancement as above. Sacroiliac joints: Mild degenerative changes Pubic symphysis: Mild degenerative changes Viscera: Bilateral pelvic lymphadenopathy including right external iliac node measures 2.1 cm rightinguinal enlarged nodes, likely reactive to both. IMPRESSION: 1. Postsurgical changes of Girdlestone procedure involving the right hip. Large peripherally enhancing right hip joint effusion extending from hip joint to proximal thigh. If the procedure is remote the findings would be concerning for infection. 2. Signal abnormality of the right acetabulum and the right proximal femur. This may reflect postoperative granulation tissue. Chronic indolent infection not excluded, correlate with findings following fluid sampling. 3. Left total hip arthroplasty. Evaluation limited due to susceptibility artifact, however no evidence of hardware complication or large left hip joint effusion. 4. Right inguinal and pelvic lymphadenopathy likely reactive. US guided aspiration of right hip fluid collection (05/16/2023) PROCEDURE: The skin was prepped and draped in sterile fashion. Buffered lidocaine was utilized as a local anesthetic prior to placement of a 18 gauge 3 1/2 inch spinal needle into the right hip fluid collectionunder ultrasound guidance. 10 cc of bloody purulent fluid was aspirated from the right hip fluid collection. The patient tolerated procedure well without immediate complication. FINDINGS: 10 cc of bloody purulent colored fluid was aspirated from the right hip fluid collection joint and sent to laboratory. IMPRESSION: Image guided aspiration of right hip fluid collection. RELEVANT CULTURES: 05/16: Aspiration fluid culture of right hip abscess : gram stain showed no organism and no PMNs 05/14: Blood cultures: No growth in 2 days ID attending attestation: I have interviewed and examined the patient, reviewed the lab data, imaging and available microbiology. I have discussed the medical decision making and recommendations with the ID fellow. I reviewed, edited as necessary and agree with the findings listed in the fellow's note, in addition to (see my addendum below) Ms. Murrieta is a 63-year-old female with multiple comorbidities including A-fib on Eliquis, HFrEF, acomplex surgical history with bilateral LOIS with multiple revisions on the right side and ultimately necessitating Girdlestone, bilateral TKR, chronic back pain who was transferred to [facility] orthopedic spine service from [facility] for surgical management of progressive C5-C6 spondylolisthesis noted on trauma CT scan. She initially presented to [facility] following a fall, she was trying to transfer herself onto a power wheelchair and ended up falling and landed over her right shoulder and did hit her head. Patient reports using power wheelchair since Girdlestone surgery approximately 2 years ago. 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 Left hip arthroplasty was done in [place] by Dr. Dc approximately 3 years ago, and he has a history of left LOIS revision 1 procedure and right hip was done at [place] ([facility] She states that she was supposed to have additional surgeries on the right side of her hip due to infection, she was taking suppressive antibiotics however its been few months that she has not because she ran out. She states that she was previously following up with a chiropractor for adjustment of her chronic neck pain with migraines and also with back pain however its been more than 4 years thatshe has not seen him. She denies any previous surgeries to cervical, thoracic or lumbar spine. She reports chronic pain under right side with minimal drainage from previous surgical incision, denies for any fevers, chills, or night sweats. She reports being homeless for 2 months prior to this August 2022, and was staying in a motel where she had numerous bedbug bites that resulting in bilateral lower extremity itching/rashes. On trauma CT pt was noted to have a complex R-hip fluid collection and underwent aspiration, fluid cx negative thus far, she is clinically HD stable, no leukocytosis, planning to take her to OR for wash out, and cervical spine surgery, hence recommend holding off antibiotics for now to optimize intra-op cultures yield. However, in the event of decompensation/ clinical declining/ SIRS+, recommend starting empiric Vancomycin and Pip/tazo Please feel free to reach out with any questions or concerns, Ortho ID will sign off this time. Kira Rasmussen MD Local Operatorsearch specialist Division of Infectious Diseases Pager # [phone]/Contact Via [place] text 15 minutes Reviewing notes, cultures, lab results. imaging, medications doses, etc 30 minutes Discussing patient with ID fellow, relaying recs to the primary team 30 minutes ____ Interviewing , examining, educating and counseling patient on various adverse effects of antibiotics 15 minutes ......... Finalizing this EMR note, which involves reviewing updated notes, cultures, imaging meds, etc. Electronic Signature on File Electronically Reviewed/Signed by: Eusebio Horne MD Author Signature Dt/Tm:05/17/2023 03:50 PM Resident Division of Infectious Diseases and Epidemiology Electronically Reviewed/Signed by: Eusebio Horne MD Cosigner Signature Dt/Tm: 05/17/2023 03:50 PM Resident Division of Infectious Diseases and Epidemiology Electronically Reviewed/Signed by: Kira Rasmussen MD Cosigner Signature Dt/Tm: 05/17/2023 06:06 PM Division of Infectious Diseases and Epidemiology SG * MD Curtis, Najma Saba: MICHELLE Acevedo MD, Najma A: MICHELLE MARTINEZ MD, Najma Saba: MODIFY MODIFYMICHELLE MD, Jeffery: MICHELLE Event Display: Nephrology Consult Authored Date: [id number] NEPHROLOGY INPATIENT CONSULTATION REPORT Name: KYM MURRIETA Patient Number: [id number] : 1960 Date of Admission: 05/14/2023 Date of Service: 05/16/2023 REQUESTING PHYSICIAN'S NAME: MD Swanson Mark A REASON FOR CONSULTATION: _ Hyponatremia ASSESSMENT: _ Mrs. Murrieta is a 63 years old lady, known with history of heart failure, atrial fibrillation, hypothyroidism, mixed anxiety and depression disorder. Presented to [facility] after history of falling down from her wheelchair, during the fall down she injured her head. imaging studies showed evidence of C5-C6 subluxation with no inctracranial pathology. She was noted to have hyponatremiareaching 121 which corrected to 130 within 12 hours. She was given D5W infusion to prevent rapid correction. Her sodium levels continued to range from 125-128. Nephrology were consulted for further evaluation # Hypervolemic hyponatremia in the setting of heart failure. Other possible confounding factor is the presence of SIADH which is explained by head trauma and SNRI use. Initially she was managed as a case of hypovolemic hyponatremia which made her sodium improve with IV NS. Her urine studies on 05/14 were showing high sodium and hypotonicity in the serum with urine osm 296. She was on IV fluids at that time, moreover, repeat urine osm today showed low urine sodiumwhich is suggestive of heart failure related hyponatremia as she was not receiving her lasix since admission given history of hypovolemia. # Hyperkalemia ? digoxin related RECOMMENDATIONS: _ 1 ) _ Would recommend resuming her furosemide 40 mg P.O 2 ) _ Stop sodium chloride tablets- transitioning treatment to diuresis for hypervolemic hyponatremia based on new urine studies 3 ) _ Monitor sodium levels q8hrs 4) _ Recommend sending TFT, Cortisol levels 5) _ Keep on low K diet 6) _ Kindly send digoxin level The patient was discussed with the attending of record, , who agrees with the assessment and plan except as detailed below. Note written By Dr Jeffery Maza PGY4, Nephrology NEPHROLOGY ATTENDING: I reviewed the history, examined the patient and discussed the plan with Dr. Maza. I agree with hisfindings and plan as outlined above. HPI: _ Mrs. Murrieta is a 63 years old lady, known with history of heart failure, atrial fibrillation, hypothyroidism, mixed anxiety and depression disorder. Presented to [facility] after history of falling down from her wheelchair, during the fall down she injured her head. imaging studies showed evidence of C5-C6 subluxation with no inctracranial pathology. She was noted to have hyponatremiareaching 121 which corrected to 130 within 12 hours. She was given D5W infusion to prevent rapid correction. Her sodium levels continued to range from 125-128. Nephrology were consulted for further evaluation PAST MEDICAL HISTORY: Problems: Heart failure Afib Thalassemia Asthma Contusion of left knee S/P total knee replacement Orthostatic hypotension Puncture wound of foot Shoulder pain Cervicalgia Bipolar Arthritis HTN (hypertension) Depression Knee pain, bilateral Foot pain, left SOB (shortness of breath) Acid reflux Weight gain Hospital Day: 3 Surgical Hospital Day/Procedure: No procedures found MEDICATIONS: Active Inpt Meds: acetaminophen 1,000 mg PO q8h busPIRone (BuSpar) 10 mg PO tid digoxin 125 mcg PO qAM docusate-senna (Senna S) 2 tab PO bid doxepin 100 mg PO qhs enoxaparin (Lovenox) 30 mg subQ q12h furosemide 40 mg PO Daily levothyroxine 75 mcg PO Daily metoprolol (metoprolol succinate (ER)) 100 mg PO bid pantoprazole (Protonix) 40 mg PO Daily polyethylene glycol 3350 (MiraLax) 17 g PO Daily sodium chloride 1 g PO tid Active PRN Meds: ondansetron 4 mg IV Push q6h oxyCODONE 5 mg PO q4h oxyCODONE 10 mg PO q4h oxyCODONE 2.5 mg PO q4h Active IV Meds: None Allergies and Sensitivities: mushrooms(swollen tongue) Allergy Not found in Search Synvisc Bee sting SOCIAL HISTORY: _ Denies tobacco, excessive alcohol, or drug use. Attempting to get medical marijuana card. Lives by herself. Has son in the area. FAMILY HISTORY: _ father with colon cancer, grandfather with esophageal cancer ROS: (Nghia with an X to the left of the System if asked and negative; otherwise detail under Symptoms) System Symptoms (details) _ Constitutional No fever X Eyes _ X Ears, Nose, Mouth, Throat _ _ Cardiovascular No chest pain _ Respiratory No cough _ Genitourinary No dysuria _ Gastrointestinal No nausea or vomiting X Musculoskeletal _ X Skin _ X Neurologic _ X Psychiatric _ X Endocrine _ X Hematologic/Lymphatic _ X Allergic/Immunologic _ VITAL SIGNS AND EXAM: Vitals Temp Pulse BP RR SpO2 FIO2 Date Wt(kg) Wt(lb) 05/16 16:28 36.7 80 123/94 18 99 RA 05/14 90.9 200 05/16 11:48 36.1 75 96/71 16 97 RA 05/14 90.9 200 05/16 09:52 ---- 72 ----- -- --- RA 05/16 05:44 36.2 88 109/84 19 93 RA 05/15 23:12 36.6 81 104/59 18 96 RA 24 Hr Tmax: 36.8 at 05/15 19:58 36 Hr Tmax: 36.8 at 05/15 19:58 Vital Signs are the last 5 in the past 48 hours. Weights display the last 5 within 7 days. Initial Wt: 05/14 kg 200 lb Recorded Input Output Balance 05/16 7a-3p 844 450 394 3p-11p 480 0 480 11p-7a 0 0 0 24 Total 1324 450 874 05/15 7a-3p 540 700 -160 3p-11p 0 350 -350 11p-7a 400 950 -550 24 Total 940 2000 -1060 Refer to the I-VIEW - I and O tab for details Physical Exam: General: _ On bed, not in distress HEENT: _ No pallor Neck: _ No LAP Cardiac: _ RRR Lungs: _ Bibasilar faint crackles Abdomen: _ Soft lax Back: _ No sacral edema Extremities: _ Bilateral pitting edema Neuro: _ ALert Skin: _ No skin rash LABS: Most Recent 24 Hour CBC/BMP Results CBC: on 05/16/2023 07:55 BMP: on 05/16/2023 11:21 8.0 127 92 16 8.5 760 98 26.0 5.4 24 0.70 Ca = 9.0 Most Recent 24 Hour Labs: 05/16/23 1513 BF Source See Flowsheet Fluid Container See Flowsheet 05/16/23 1316 Na (u) <11 Osmol (u) 240 05/16/23 1227 Estimated CrCl 88.49 05/16/23 1121 Anion Gap 11 eGFR CKD-EPI >90 05/16/23 0756 Request of Physician See Flowsheet Action Taken See Flowsheet 05/16/23 0755 MCH 19.3 L MCHC 30.8 L MCV 62.7 L RBC 4.15 MPV 8.4 L RDW 23.6 H Osmolality 265 L 05/15/231999 PO4 REQUEST CREDITED Alb REQUEST CREDITED eGFR CKD-EPI: >90 OTHER LABS: RELEVANT IMAGING: RELEVANT CULTURES: Electronic Signature on File Electronically Reviewed/Signed by: Jeffery Maza MD Author Signature Dt/Tm:05/16/2023 04:59 PM Resident Division of Nephrology Electronically Reviewed/Signed by: Jeffery Maza MD Cosigner Signature Dt/Tm: 05/16/2023 05:26 PM Resident Division of Nephrology Electronically Reviewed/Signed by: Najma Acevedo MD Cosigner Signature Dt/Tm: 05/16/2023 05:32 PM Division of Nephrology AM * MD Gerry, [facility]: MODIFY MD Neptali, Len: PERFORM, MODIFY MD Neptali, Len: MODIFY, MODIFY MD Neptali, Len: MODIFY Event Display: Medicine Inpt Consult Authored Date: [id number] MEDICINE INPATIENT CONSULTATION REPORT Name: KYM MURRIETA Patient Number: [id number] : 1960 Date of Admission: 05/14/2023 Date of Service: 05/14/2023 REQUESTING SERVICE: Ortho Spine REQUESTING PHYSICIAN'S NAME: MD Swanson Mark A REASON FOR CONSULTATION: hyponatremia ASSESSMENT: Kym Murrieta is a 63 year old Female with PMH significant for Heart failure with unknown ejection fraction, paroxysmal atrial fibrillation, reported possible beta thalassemia, hypothyroidism, generalized anxiety disorder, major depressive disorder admitted as a transfer from [facility] after a fall with headstrike for management of progressive C5-C6 spondylolisthesis. Internal medicine consulted for hyponatremia. Na was 121 prior to transfer, awaiting labs here. RECOMMENDATIONS: 1) please order a urine cr, urine sodium, urine urea, urine osm, serum osm and a serum sodium level 2) please acquire outside records from PCP regarding patient's hyponatremia history and outpatient sodium levels and thyroid function 3) At this time, patient's hyponatremia could be due to hypovolemic hyponatremia, hypervolemic hyponatremia, siadh, chronic hyponatremia that is unchanged. It is impossible to know without additionalinformation. We recommend awaiting the work up and corresponding results prior to proceeding with surgery in order to optimize risks. We will continue to follow. Please contact us with any questions or concerns. Thank you for allowing us to take part in the care of this patient. Patient was staffed with attending of record, Dr. Garrett, who agrees with the above assessment and plan unless otherwise indicated below. Len Gunderson M.D. Internal Medicine Resident PGY2 History of Present Illness: Kym Murrieta is a 63 year old Female with PMH significant for Heart failure with unknown ejection fraction, paroxysmal atrial fibrillation, reported possible beta thalassemia, hypothyroidism, generalized anxiety disorder, major depressive disorder admitted as a transfer from [facility] after a fall with headstrike for management of progressive C5-C6 spondylolisthesis. Patient states she hashad 4 falls in the past few months. She reprots excessive thirst due to no po intake all night. Shealso drinks maximum of 2L due to heart failure diagnosis, lately she has been drinking even less about 4 small bottles of water. She started a new medication which she believes to be doxepin recentlyfor anxiety. She has lost a significant amount of weight intentionally using portion control. She has shortness of breath, chest pain "on and off" not experiencing at this time but when she does feelit is it in her left side, not necessarily noticed it worsening with activity. No relief with rest.Reports palpitations, with anxiety. Reports she is not able to tell when she goes into afib. Reports fevers at home but has not measured her temperature. Reports chills now. Reports intermittent neckpain with head turns. Reprots chronic cough and shortness of breath for months. Denies abdomen pain, nausea, vomiting. PCP: Dr. Hortensia Don MD Past Medical History: Patient's reported medical conditions and medication list (unconfirmed): Insomnia - pt recently started taking doxepin JACEY - on duloxetine 60mg, buspirone 10mg, and hydroxyzine as a chronic regimen CHF with unknown EF - on furosemide 40mg daily, metoprolol succinate 100mg, lisinopril of unknown dosage Depression - pt reportedly on citalopram, however this was not found in external rx paroxysmal atrial fibrillation - pt is on digoxin daily, apixaban 5mg bid last dose 05/13 AM hypothyroidism - on levothyroxine GERD - PPI muscle spasms - pt takes cyclobenzaprine (Flexeril) Problems: Heart failure Afib Thalassemia Asthma Contusion of left knee S/P total knee replacement Orthostatic hypotension Puncture wound of foot Shoulder pain Cervicalgia Bipolar Arthritis HTN (hypertension) Depression Knee pain, bilateral Foot pain, left SOB (shortness of breath) Acid reflux Weight gain Surgical History: R hip Girdlestone Hospital Day: 0 Surgical Hospital Day/Procedure: No procedures found MEDICATIONS: Active Inpt Meds: acetaminophen 1,000 mg PO q8h docusate-senna (Senna S) 2 tab PO bid polyethylene glycol 3350 (MiraLax) 17 g PO Daily Active PRN Meds: ondansetron 4 mg IV Push q6h Active IV Meds: None Current Home Meds: (Last Updated 04/02 13:27) acetaminophen (Tylenol 325 mg oral tablet) 650 mg PO q4h PRN: as needed for pain aripiprazole (Abilify 10 mg oral tablet) 10 mg PO Daily busPIRone (BuSpar 10 mg oral tablet) 1 tab PO tid busPIRone (BuSpar Dividose 15 mg oral tablet) 15 mg PO bid busPIRone (BuSpar 5 mg oral tablet) 5 mg PO Daily cyclobenzaprine (cyclobenzaprine 5 mg oral tablet) 5 mg PO bid PRN: as needed for spasm divalproex sodium (Depakote 250 mg oral delayed release tablet) 500 mg PO bid lisinopril (lisinopril 5 mg oral tablet) 5 mg PO Daily multivitamin (Multiple Vitamins oral tablet) 1 tab PO Daily omeprazole (omeprazole 20 mg oral delayed release tablet) 20 mg PO Daily ranitidine (ranitidine 150 mg oral tablet) 150 mg PO Daily topiramate (Topamax) 100 mg PO bid tramadol (tramadol 50 mg oral tablet) 50 mg PO q4h PRN: as needed for pain trazodone (traZODone 150 mg oral tablet) 150 mg PO qhs warfarin (warfarin 5 mg oral tablet) 5 mg PO Daily zolpidem (Ambien 10 mg oral tablet) 10 mg PO qhs PRN: as needed for sleep Allergies and Sensitivities: mushrooms(swollen tongue) Allergy Not found in Search Synvisc Bee sting SOCIAL HISTORY: lives alone in an independent living facility, has a visiting nurse to help take care of chronic lower extremity wounds. Patient manages her own medications but it comes labeled in a system where it says take these medication in the morning and these in the evening. She normally gets around with a wheelchair and has been doing so for a few years. She is a former smoker. She drinkswine every couple of weeks. Last drink was 1 week ago. FAMILY HISTORY: father with colon cancer, grandfather with esophageal cancer. ROS: Complete review of systems obtained and negative other than stated above. VITAL SIGNS AND EXAM: Vitals Temp Pulse BP RR SpO2 FIO2 Date Wt(kg) Wt(lb) 05/14 04:07 36.5 --- 118/65 18 94 RA 05/14 90.9 200 ---- ----- --- -- --- --- 05/14 90.9 200 24 Hr Tmax: 36.5 at 05/14 04:07 36 Hr Tmax: 36.5 at 05/14 04:07 Vital Signs are the last 5 in the past 48 hours. Weights display the last 5 within 7 days. Initial Wt: 05/14 kg 200 lb No I and O Data Available Physical Exam: General:no acute distress,pleasant Eyes: anicteric sclera ENMT:moist mucous membranes, external ears and nose without ulceration Neck:supple, no masses, trachea midline Cardiac:normal rate; irregular rhythm, no S3/S4, delayed capillary refill Lungs:clear to auscultation bilaterally, with wheeze on left lower lobe, respiratory effort normal Abdomen:soft, nondistended, no tenderness to palpation. No masses appreciated. Extremities: trace pitting edema b/l; able to wiggle both toes, 5/5 strength at foot and ankle b/l 2/5 strength at hip of right lower extremity, unable to keep up against gravity, wheras left lower extremity is 5/5 strength throughout Neuro:oriented to person, place time and situation; sensation grossly intact throughout Skin:well perfused, no rashes or ulcerations Psych:mood euthymic, affect normal LABS: No labs in the system currently. At [facility], Na was 121. Most Recent Lab Results over the last 24 Hours: No Latest CBC or BMP Found. No Estimated GFR, not found. No 24hr Lab Data OTHER LABS: RELEVANT IMAGING: RELEVANT CULTURES: Attending note: I personally saw and examined this patient at bedside, reviewed RN and resident documentation, all relevant labs and radiographic studies. I agree with and confirmed the resident's documentation/findings as listed above. I have made the necessary additions/corrections. Willie Garrett MD Electronic Signature on File Electronically Reviewed/Signed by: Len Gunderson MD Author Signature Dt/Tm:05/14/2023 05:42 AM Resident Division of Internal Medicine Electronically Reviewed/Signed by: Willie Garrett MD Cosigner Signature Dt/Tm: 05/20/2023 04:08 AM Division of Internal Medicine AM .D/C Summary * JILLIAN Moore, Angelica Cohn: PERFORM Event Display: .D/C Summary Authored Date: [id number] [facility] For medical concerns, call: . Address: [address] [place] [address] (MOBILE) :1960 . Date of Admission:05/14/2023 Date of Discharge:06/07/2023 Physician:MD Jass [facility] Service:Internal Medicine Discharge Disposition:SNF, stable Primary Care Provider/Phone: MD DON KARISSA A (BUSINESS) [phone] (FAX BUSINESS) Principal Diagnosis: Chronic osteomyelitis of right femur Other Diagnoses: S/P cervical discectomy Blood loss anemia Atrial fibrillation with RVR Hyponatremia Major Tests and Procedures: C5-C6 ACDF 05/18/2023 Right hip Irrigation and debridement, skin to bone, Right femur o 05/20/2023 Diagnostic Radiology: (05/14/2023 12:08 EST XR Hips 3-4 Views w/AP Pelvis Bilat) IMPRESSION: Postoperative changes of both hips. No acute finding. [1] (05/19/2023 10:05 EST XR Pelvis Complete 3+ Views) IMPRESSION: Postoperative changes of both hips. No acute finding. [2] (05/20/2023 17:37 EST XR Pelvis 1 or 2 Views) (05/20/2023 17:37 EST XR Femur 2 Views Right) IMPRESSION: Expected postoperative changes of right proximal femoral resection. [3] (05/25/2023 12:32 EST XR Chest 1 View) IMPRESSION: 1. Right PICC with tip in lower SVC. [4] (05/28/2023 14:51 EST XR Pelvis 1 or 2 Views) IMPRESSION: Postsurgical changes of resection of the right proximal femur, possible developing heterotopic ossification about the surgical site. [5] MRI Imaging: (05/14/2023 13:17 EST MRI Spine Cervical w/ + w/o Contrast) IMPRESSION: 1. Exam is moderate to markedly limited due to motion. 2. Redemonstration of grade 2 anterolisthesis C5 on C6 with superimposed degenerative changes resulting in at least moderate central canal stenosis. Significant degenerative type I endplate changesat C5-6. 3. Left greater than right C5-6 facet arthropathy with significant edema and postcontrast enhancement in the periarticular soft tissues as well as in left C5-6 articular facets. 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 Differential diagnosis is inflammatory arthropathy and less likely infective arthropathy. Recommend clinical and laboratory correlation. [6] (05/15/2023 19:16 EST MRI Pelvis w/ + w/o Contrast) IMPRESSION: 1. Postsurgical changes of Girdlestone procedure involving the right hip. Large peripherally enhancing right hip joint effusion extending from hip joint to proximal thigh. If the procedure is remote the findings would be concerning for infection. 2. Signal abnormality of the right acetabulum and the right proximal femur. This may reflect postoperative granulation tissue. Chronic indolent infection not excluded, correlate with findings following fluid sampling. 3. Left total hip arthroplasty. Evaluation limited due to susceptibility artifact, however no evidence of hardware complication or large left hip joint effusion. 4. Right inguinal and pelvic lymphadenopathy likely reactive. [7] Lab Results Test Name Test Result Date/Time Na 132 mmol/L 06/04/2023 06:19 EST K 5.1 mmol/L 06/04/2023 06:19 EST Cl- 99 mmol/L 06/04/2023 06:19 EST HCO3 26 mmol/L 06/04/2023 06:19 EST Anion Gap 7 mmol/L 06/04/2023 06:19 EST BUN 16 mg/dL 06/04/2023 06:19 EST Cret 0.47 mg/dL 06/04/2023 06:19 EST Estimated CrCl 131.80 mL/min 06/04/2023 07:13 EST eGFR CKD-EPI >90 mL/min/1.73 m2 06/04/2023 06:19 EST Glu 86 mg/dL 06/04/2023 06:19 EST Ca 8.9 mg/dL 06/04/2023 06:19 EST Mg 1.9 mg/dL 06/04/2023 06:19 EST WBC 5.82 K/uL 06/07/2023 05:08 EST Hgb 7.2 g/dL 06/07/2023 05:08 EST Hct 22.7 % 06/07/2023 05:08 EST RBC 2.90 M/uL 06/07/2023 05:08 EST MCV 78.3 fL 06/07/2023 05:08 EST MCHC 31.7 g/dL 06/07/2023 05:08 EST MCH 24.8 pg 06/07/2023 05:08 EST RDW 22.6 % 06/07/2023 05:08 EST Plts 492 K/uL 06/07/2023 05:08 EST MPV 8.6 fL 06/07/2023 05:08 EST ALT <5 unit/L 06/03/2023 03:56 EST T Bili 0.3 mg/dL 06/03/2023 03:56 EST Alk Phos 164 unit/L 06/03/2023 03:56 EST AST 17 unit/L 06/03/2023 03:56 EST Alb 2.7 g/dL 06/03/2023 03:56 EST Prot 6.1 g/dL 06/03/2023 03:56 EST Transferrin 180 mg/dL 06/03/2023 03:56 EST CReacProt 1.17 mg/dL 06/03/2023 03:56 EST ESR 55 mm/hr 06/03/2023 03:56 EST Ferritin 614.9 ng/mL 06/03/2023 03:56 EST Fe Sat 17 % 06/03/2023 03:56 EST Iron 36 ug/dL 06/03/2023 03:56 EST Total IBC 212 ug/dL 06/03/2023 03:56 EST Hospital Course: The patient is a 63 year old female with known history of diastolic heart failure (EF 60-65% March 2023), atrial fibrillation (on Eliquis), beta thalassemia (baseline hemoglobin approximately 8),hypothyroidism, hypertension, gastric bypass, and anxiety/depression as well as 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 Subsequently transferred to [facility] and admitted to Ortho Trauma and underwent anterior cervical discectomy andfusion on 05/18. Following transfer, patient also reporting right hip pain and it was noted that ESR and CRP were elevated. Had MRI which showed a large peripherally enhancing effusion extending from right hip joint to proximal thigh concerning for infection.Was takento the OR on 05/20 for proximal femur, acetabulum, anterior column saucerization with antibiotic bead and wound vac placement withreturn to OR on 05/27 forright hip irrigation and debridement with placement of antibiotic beads. Ortho ID consulted, patient triaged to cefazolin with 6 week course to be completed on 07/08/23. Hospital course complicated by acute blood loss anemia on chronic anemia requiring multiple transfusions as well as hyponatremia and rapid ventricular rates. Medicine Consult team following throughout admission and ultimately transferred to service on 05/31. At the time of discharge, hemoglobin and sodium were appropriate and stable. Heart rates well controlled. Right femur osteomyelitis -Management per Orthopedics, drains and wound vac have been removed. -Weight bearing as tolerated. -Pain control with scheduled tylenol, oxycodone as needed, and cold compresses -Maintain bowel regimen -Continue vitamin D -Per Ortho ID, continue cefazolin 2g every 8 hours through 07/08. Will need CBC with diff, CMP, ESR, and CRP every Saturday with results to [facility] (fax# [phone]). Follow up with Dr. Kira Carter ID clinic in conjunction with Ortho; Dr. Song Schneider in 4-6 weeks. PICC placed on 05/25 C5-C6 spondylolisthesis -Maintain C-collar until outpatient follow up. -No MAP goals, no HOB restriction -No twisting/bending/lifting >10lbs -Flexeril as needed for spasms. Acute blood loss anemia secondary to surgical interventions Beta thalassemia, microcytic anemia -Baseline hemoglobin approximately 8, likely due to beta thalassemia as well as mixed picture of iron deficiency and anemia of chronic disease (iron 36 and TIBC 212 on 06/03 but noted to be after multiple transfusions) -Received multiple transfusions this admission with most recent 05/30. Hemoglobin stable at 7.5 for last several draws. -Eliquis resumed. Hyponatremia -Believed secondary to SIADH (due to SSRI?), responding well to 1.2L fluid restriction. Lower suspicion for adrenal insufficiency with TSH andrandom cortisol within normal limits. -Baseline of 130, down to 120 during this admission. Now stable at 129-130 for multiple days. -Patient requesting a re-trial of Cymbalta. Will resume at half-dosing (30 mg) -May resume lasix on an as needed basis per patient's prior outpatient routine. Persistent atrial fibrillation Asymptomatic hypotension -Hypotension believed to be due to acute blood loss. Goal MAPs >65. -Continue digoxin and metoprolol. Of note, when metoprolol has been held, patient has rapid rates. -With stable hemoglobin and discontinuation of drains, Eliquis resumed. Resolved issues: -Hyperkalemia: Possibly patient's baseline, currently off Lasix. Received dose of patiromer on 06/01. Chronic issues: -Diastolic heartfailure: Lasix as an outpatient as needed for lower extremity swelling, has been euvolemic here and with hyponatremia also excluding dosing. Appears euvolemic on exam, weight has remained stable at approximately 90 kg throughout admission. -Hypothyroidism: Continue Synthroid. -Hypertension: Continue metoprolol. No recent fill history for lisinopril. -Hyperlipidemia: Statin as an outpatient. -GERD: Continue PPI. -Anxiety/depression: Continue BuSpar and doxepin. Duloxetine has been on hold due to concern for exacerbating factor of possible SIADH. Will resume at half of previous dose and recommend weekly/twice weekly monitoring of BMP. -Restless legs: Continue ropinirole. - Morbid obesity: BMI >35 with obesity-associated disease: Complicates all care. Recommend diet and lifestyle modifications. Exam on Discharge: Vitals & Measurements: T:36.6C TMIN:35.9C TMAX:37.0C HR:74(Monitored) RR:12 BP:108/55 SpO2:100% Oxygen Therapy:Room air BMI:36.65 kg/m2 General:Well-appearing obesefemale dressed in hospital gown, sitting in bed. Appearsolder than stated age. Head: Atraumatic, no asymmetries. Eyes: Extraocular movements intact.Sclera anicteric.Glasses. ENT: Mucous membranes moist.Without rhinorrhea. Neck: C collar in place. Cardiac:Radial pulse appreciated, irregular with normal rate. Pulmonary:Without accessory muscle use or conversational dyspnea. Abdomen:Soft. MSK: Moving all extremities. Bilateral lower extremities with 1+ edema. Neuro: Alert, conversive. Without dysarthria. Psych: Euthymic. Judgment and insight are good. Skin:Warm and dry. Right hip dressings without evidence of drainage. Right hip surgical incision partially visualized and well approximated with sutures without evidence of drainage or surrounding erythema. Discharge Medications: 1.Multivitamin (Multiple Vitamins oral tablet) 1 tab by mouth once daily. 2.Omeprazole (omeprazole 20 mg oral delayed release tablet) 20 mg (1 tab) by mouth once daily. 3.BusPIRone (BuSpar 10 mg oral tablet) 1 tab by mouth 3 times daily. 4.Atorvastatin . 5.Apixaban (Eliquis 5 mg oral tablet) 5 mg (1 tab) by mouth 2 times daily. 6.Furosemide 20 mg once daily, as needed for see order comments. as needed for lower extremity swelling. 7.Digoxin (digoxin 125 mcg (0.125 mg) oral tablet) 125 mcg (1 tab) by mouth once a day (in the morning). Hold for HR <60. 8.Levothyroxine (levothyroxine 75 mcg (0.075 mg) oral tablet) 75 mcg (1 tab) by mouth once daily. 9.Cyanocobalamin (Vitamin B-12 1000 mcg oral tablet) 1,000 mcg (1 tab) by mouth once daily. 10.ROPINIRole (rOPINIRole 0.25 mg oral tablet) . TAKE 1 TABLET BY MOUTH AT BEDTIME. 11.Cyclobenzaprine (Flexeril 5 mg oral tablet) 5 mg (1 tab) by mouth 3 times daily, as needed for spasms. 12.Doxepin (doxepin 50 mg oral capsule) 100 mg (2 cap) by mouth at bedtime. 13.Metoprolol (metoprolol succinate 50 mg oral tablet, extended release) 50 mg (1 tab) by mouth 2 times daily. 14.Melatonin (Melatonin) 5 mg (1 tab) by mouth at bedtime. 15.OxyCODONE (oxyCODONE 5 mg oral tablet) 5 mg by mouth every 4 hours, as needed for pain - moderate (4-6). 16.Acetaminophen (acetaminophen 500 mg oral tablet) 1,000 mg (2 tab) by mouth every 8 hours. 17.Polyethylene glycol 3350 (MiraLax) 17 g by mouth once daily. 18.Docusate-senna (Senna S) 2 tab by mouth 2 times daily. 19.OxyCODONE (oxyCODONE 10 mg oral tablet) 10 mg by mouth every 4 hours, as needed for pain - severe (7-10). 20.DULoxetine (Cymbalta 30 mg oral delayed release capsule) 30 mg (1 cap) by mouth once daily. 21.CeFAZolin (ceFAZolin 2 g/50 tF-goz-ympbtyt dextrose intravenous solution) 2,000 mg (50 mL) intravenously every 8 hours. 22.Cholecalciferol (Vitamin D3) 125 mcg (1 tab) by mouth once daily. Allergies and Sensitivities: mushrooms(Severe)swollen tongue Allergy Not found in Search Bee sting PollenMaple pollen, Maple Synvisc Tests Pending: None Follow-Up Tests and Studies After Discharge: Will need CBC with diff, CMP, ESR, and CRP every Saturday with results to [facility] (fax# [phone]). Scheduled Appointments: Date/Time:Provider/Resource: May 02:15 MD Justin, Song Ruiz Location/Instructions:[facility] [place], [address], [address], [facility] [address] Date/Time:Provider/Resource: May 02:25 BLANCA Wilson Michelle M Location/Instructions:[facility] [place], [address], [address], [address], [place] [address] Other Appointments: Follow Up [facility] [phone], f- [phone] Why: pt needs home nursing for IV abx, SOC is 06/06. Discharge Services: Service: Organization: Business Address: Phone Number: [facility] [address] [place] [address] [place], [address] Care Instructions: C-Spine Care Instructions: 1. Change dressing daily with dry dressing. After you take the dressing off and there is no drainage from the incision, you may shower the following day. Do not submerge wound into whirlpool, bath,or pool. You can shower in the Cervical collar and replace the pads with dry ones following it. 2. You havedissolvable sutures in your incision. Allow the Steri strips to fall off on their own. If they havent fallen off in 10 days, you may pull them off. 3. No driving while taking narcotic pain medication. 4. Please return to your pre-hospital medications unless directed otherwise. 5. Resume a regular diet. Drink at least 8 glasses of water daily. This will prevent constipation. You should use an over the counter stool softener of your choice while taking narcotic pain medication. (Colace, Senna) 6. Do not smoke or use products that contain nicotine. Do not use Non Steroidal Anti-Inflammatory medications (NSAIDS: Advil, Aleve, Ibuprofen, Motrin, Naprosyn). These all impede bone healing. 7. DO NOT REMOVE CERVICAL COLLARexcept for routine dressing changes or following showering. To do this, lay flat on the bed and have someone hold your neck straight. then allow them to remove thecollar while you stay still. Diet Guidelines: Resume your regular diet Activity Guidelines: 1. Maintain collar as above. Wear the [employer] cervical collar at all times.You may bathe with it in place and then lay flat in bed with your head in fixed position while someone else exchanges the pads for a dry pair. You are not to drive while wearing this device. 2. You are encouraged to walk at least 150 feet per day to minimize the chances of developing a bloodclot in one of your legs (DVT) that might then travel to the lungs. Ambulate as tolerated; moving around helps reduce the risk of blood clots in the legs (DVT). 3. Continue taking short walks at home. Ambulate as tolerated. Use your rolling walker if advisedby Physical Therapy. 4. Take your time slowly up and down the steps one step at a time --holding onto the rail withboth hands-- someone should supervise you on steps for now. 5. No lifting > 10 lbs, twisting, or bending motions. Avoid lifting overhead. 6. Do NOT do heavy housework, such as bed-making, vacuuming or laundry for the first 6 weeks after surgery. SMOKING is a major health concern!Smoking greatly increases the risk of heart disease, cancer and stroke. - If you and your family don't smoke, continue this healthy choice! Remember to avoid secondhand smoke. - If you or anyone in your household does use tobacco products, please follow any smoking cessationadvice/counseling you received while in the hospital. If you would like more information about how to live tobacco free, please call the numbers or access the websites below: [facility] Care Line: [facility] QUITLINE: 2-706-NvtrTjt ( ) [email or web address] Careerquitnow.cancer.gov [email or web address] Date of Service:05/18/2023 Surgeon: Nghia Swanson MD OPERATION PERFORMED:C5-C6 ACDF Date of Service:05/20/2023 Surgeon: Song Schneider MD OPERATION PERFORMED: 1. Right hip Irrigation and debridement, skin to bone 2. Right femur osteomyelitis resection 3. Saucerization of acetabulum and ilium Date of Service:05/27/2023 Surgeon: Song Schneider MD OPERATION PERFORMED: 1. Saucerization right proximal femur with proximal femur resection 2. Saucerization right acetabulum and posterior column 3. Saucerization right femoral shaft 4. Creation and insertion deep antibiotic beads right hip 5. Creation and insertion intramedullary antibiotic beads right femur 6. Complex primary closure 16cm Date of Service:05/29/2023 PROCEDUREPERFORMED: Incisional wound vac- removed on 06/03/2023 -Stool softener of choice while on pain medication -NO NSAIDS (Advil, Motrin, Ibuprofen, Aleve, Naproxen, Mobic, Celebrex) until further notice -NO SMOKING or use of any products containing nicotine including chew less tobacco and nicotine replacement medications - Research has shown that these can lead to a delay in wound/incision healing complications and delay of bone fusion and fracture healing and must be stopped in the postoperative period. Continuing these substance while your fracture is healing can lead to chronic pain and/or a non-united fracture that may require further surgery. -NO DRIVING until further notice - Take at least 10 deep breaths every hour, while awake, to help keep the lungs wide open and prevent pneumonia -Vitamin D recommendation: Your Vitamin D level was 20. A normal level is between 30-100. We would like you to take Vitamin D3 5,OOO IU once daily for 8 weeks post op. Follow up with Infectious Disease same day appointment as Orthopaedic Surgery: - Weekly Saturday Labs to be faxed to the ID Clinic at [phone] o Attention to Rhianna Sawant PA-C o CBC w/ diff, platelets, CMP, ESR, CRP, Recommended Antibiotics: Drug Dose Frequency Route Start Date Est. Stop Date Hard Stop Cont. to ID Appt. cefazolin 2g every 8 hours IV 05/27/2023 07/08/2023 _ X _ _ _ _ _ _ _ _ _ _ _ _ _ _ _ _ WOUND CARE: -Dressing change: - Apply a dry dressing daily to theRight leg until there is NO drainage from your incision for 3-4 consecutive days. - You may leave the incision open to air when the dressing has been dry for 3-4 days - if wrapping with an bisi bandage due to swelling - start wrapping at the toes and wrap to above the incision with light compression - -Personal Hygiene: - Do NOT get your incision wet until you are seen in the orthopaedic clinic for a wound check and you have been approved to do so. ACTIVITY GUIDELINES: Right lower extremity isweight bearing as toleratedwith the assistance of a walker as shown by Physical Therapy. - Right hip, knee and ankle range of motion as tolerated: NO specific restrictions - elevate foot/ankle above heart level to help decrease pain and swelling Right Terminal knee extension - While in bed, place a pillow under your heel and work on straightening your knee o (do not place the pillow directly under your knee) o This will allow for full terminal extension of your knee. o Do this exercise for 1 hour 3-4 times per day Call your doctor with questions regarding your Orthopaedic Injuries - Call with any questions concerning fevers > 101F, chills, redness, increased swelling, numbness, tingling, drainage or pus from your incisions or if you have any questions please phone ouroffice. - Saturday 8am-4:30pm Call - Evenings or Weekends call the hospital video control operator and ask for the Orthopaedic resident sales development consultant to be paged Immunizations Received this Hospital Stay: Recommend Covid vaccination and all applicable boosters. Recommend annual influenza vaccination this season. Pneumonia, shingles (HZV), and applicable adultvaccines per CDC guidelines. . Advance Directive:None I personally spent45 minutes in discharge planning. Please refer to the patient's hospital chart for complete and detailed hospitalization as this is only a discharge summary. Please note, the patient case was personally discussed withDr. Regan_who is in agreementwith the assessment and plan. Patient/family indicates understanding of the above and is in agreement with thedischarge plan asdiscussed. All questions were answered. [1]XR Hips 3-4 Views w/AP Pelvis Bilat; MD Dameon, Jessica L 05/14/2023 12:08 EST [2]XR Pelvis Complete 3+ Views; MD Sergio, Holly Porter 05/19/2023 10:05 EST [3]XR Femur 2 Views Right; MD Vikas, Gregor A 05/20/2023 17:37 EST [4]XR Chest 1 View; MD Vikas, Gregor A 05/25/2023 12:32 EST [5]XR Pelvis 1 or 2 Views; MD Rigo, Eva 05/28/2023 14:51 EST [6]MRI Spine Cervical w/ + w/o Contrast; MD Evelyn, Hari S 05/14/2023 13:17 EST [7]MRI Pelvis w/ + w/o Contrast; MD Sergio, Holly N 05/15/2023 19:16 EST Electronic Signature on File Electronically Reviewed/Signed by: Angelica Moore PA-C Author Signature Dt/Tm:06/07/2023 12:52 PM Division of Internal Medicine - Hospitalist SET * JILLIAN Moore, Angelica Cohn: PERFORM Event Display: .D/C Summary Authored Date: [id number] Due to change in transport arrangements (patient unable to tolerate wheelchair van and required [place]), patient remained in the hospital until approximately 0630 on 06/08 (prior to the start of this provider's shift). No clinical changes per nursing or overnight Medicine coverage before to departure. Electronic Signature on File Electronically Reviewed/Signed by: Angelica Moore PA-C Author Signature Dt/Tm:06/08/2023 10:07 AM Division of Internal Medicine - Hospitalist SET Facility Discharge Instructions * JILLIAN Moore, Angelica Cohn: PERFORM Event Display: Facility Discharge Instructions Authored Date: [id number] KYM MURRIETA :1960 Visit Date:05/14/2023 Facility Discharge Instructions [facility] For medical concerns, call: . Date of Admission:05/14/2023 Date of Discharge:06/07/2023 Physician:MD Regan Priyanka Service:Internal Medicine Discharge Disposition:SNF, stable Primary Care Provider/Phone: MD KIMBERLY, HORTENSIA Saba (BUSINESS) [phone] (FAX BUSINESS) . Advance Directive:None Reason for Hospitalization Chronic osteomyelitis of right femur Your Diagnoses Chronic osteomyelitis of right femur S/P cervical discectomy Blood loss anemia Atrial fibrillation with RVR Hyponatremia My Health Patient Portal: [facility] [employer] makes it easy for you to manage your health information online. My [facility] [employer] is a free service that provides you instant, secure access to your medical information anytime, anywhere. Sign in or set up your account today at [email or web address] Thank you for allowing us to assist you with your healthcare needs. If you need additional community resources, BLANCA Michael can help at [email or web address].blanca211.org. Alec can assist you in connecting with social programs based on your unique needs and locations. 211 is an anonymous search that can help you locate resources for: Food, Housing, Transportation, Goods, Education and Healthcare. 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 following a fall at which time she was found to have C5-C6 spondylolisthesis. Subsequently transferred to [facility] and admitted to Ortho Trauma and underwent anterior cervical discectomy andfusion on 05/18. Following transfer, patient also reporting right hip pain and it was noted that ESR and CRP were elevated. Had MRI which showed a large peripherally enhancing effusion extending from right hip joint to proximal thigh concerning for infection.Was takento the OR on 05/20 for proximal femur, acetabulum, anterior column saucerization with antibiotic bead and wound vac placement withreturn to OR on 05/27 forright hip irrigation and debridement with placement of antibiotic beads. Ortho ID consulted, patient triaged to cefazolin with 6 week course to be completed on 07/08/23. Hospital course complicated by acute blood loss anemia on chronic anemia requiring multiple transfusions as well as hyponatremia and rapid ventricular rates. Medicine Consult team following throughout admission and ultimately transferred to service on 05/31. At the time of discharge, hemoglobin and sodium were appropriate and stable. Heart rates well controlled. Right femur osteomyelitis -Management per Orthopedics, drains and wound vac have been removed. -Weight bearing as tolerated. -Pain control with scheduled tylenol, oxycodone as needed, and cold compresses -Maintain bowel regimen -Continue vitamin D -Per Ortho ID, continue cefazolin 2g every 8 hours through 07/08. Will need CBC with diff, CMP, ESR, and CRP every Saturday with results to [facility] (fax# [phone]). Follow up with Dr. Kira Carter ID clinic in conjunction with Ortho; Dr. Song Schneider in 4-6 weeks. PICC placed on 05/25 C5-C6 spondylolisthesis -Maintain C-collar until outpatient follow up. -No MAP goals, no HOB restriction -No twisting/bending/lifting >10lbs -Flexeril as needed for spasms. Acute blood loss anemia secondary to surgical interventions Beta thalassemia, microcytic anemia -Baseline hemoglobin approximately 8, likely due to beta thalassemia as well as mixed picture of iron deficiency and anemia of chronic disease (iron 36 and TIBC 212 on 06/03 but noted to be after multiple transfusions) -Received multiple transfusions this admission with most recent 05/30. Hemoglobin stable at 7.5 for last several draws. -Eliquis resumed. Hyponatremia -Believed secondary to SIADH (due to SSRI?), responding well to 1.2L fluid restriction. Lower suspicion for adrenal insufficiency with TSH andrandom cortisol within normal limits. -Baseline of 130, down to 120 during this admission. Now stable at 129-130 for multiple days. -Patient requesting a re-trial of Cymbalta. Will resume at half-dosing (30 mg) -May resume lasix on an as needed basis per patient's prior outpatient routine. Persistent atrial fibrillation Asymptomatic hypotension -Hypotension believed to be due to acute blood loss. Goal MAPs >65. -Continue digoxin and metoprolol. Of note, when metoprolol has been held, patient has rapid rates. -With stable hemoglobin and discontinuation of drains, Eliquis resumed. Resolved issues: -Hyperkalemia: Possibly patient's baseline, currently off Lasix. Received dose of patiromer on 06/01. Chronic issues: -Diastolic heartfailure: Lasix as an outpatient as needed for lower extremity swelling, has been euvolemic here and with hyponatremia also excluding dosing. Appears euvolemic on exam, weight has remained stable at approximately 90 kg throughout admission. -Hypothyroidism: Continue Synthroid. -Hypertension: Continue metoprolol. No recent fill history for lisinopril. -Hyperlipidemia: Statin as an outpatient. -GERD: Continue PPI. -Anxiety/depression: Continue BuSpar and doxepin. Duloxetine has been on hold due to concern for exacerbating factor of possible SIADH. Will resume at half of previous dose and recommend weekly/twice weekly monitoring of BMP. -Restless legs: Continue ropinirole. - Morbid obesity: BMI >35 with obesity-associated disease: Complicates all care. Recommend diet and lifestyle modifications. Exam on Discharge Vitals & Measurements: T:36.6C TMIN:35.9C TMAX:37.0C HR:74(Monitored) RR:12 BP:108/55 SpO2:100% Oxygen Therapy:Room air General:Well-appearing obesefemale dressed in hospital gown, sitting in bed. Appearsolder than stated age. Head: Atraumatic, no asymmetries. Eyes: Extraocular movements intact.Sclera anicteric.Glasses. ENT: Mucous membranes moist.Without rhinorrhea. Neck: C collar in place. Cardiac:Radial pulse appreciated, irregular with normal rate. Pulmonary:Without accessory muscle use or conversational dyspnea. Abdomen:Soft. MSK: Moving all extremities. Bilateral lower extremities with 1+ edema. Neuro: Alert, conversive. Without dysarthria. Psych: Euthymic. Judgment and insight are good. Skin:Warm and dry. Right hip dressings without evidence of drainage. Right hip surgical incision partially visualized and well approximated with sutures without evidence of drainage or surrounding erythema. Medications Patient is enrolled in Rx-to-Go Program New medications will be delivered from [facility] to patient's room at discharge: Mon-Sun from 9AM-5 PM. Medications MUST be PICKED UP at [facility] if patient is discharged Mon-Sun after 5 PM or anytime on holidays. Please note, the [facility] closes at 8 PM on weekdays and 5:30 PM on Saturdays, Sundays, and holidays. What How Much When Instructions Next Dose New ceFAZolin (ceFAZolin 2 g/ 50 cP-sfp-vksggre dextrose intravenous solution) 50 Milliliter intravenously Every 8 hours Last day 07/08/23 New cholecalciferol (Vitamin D3) 125 Microgram by mouth Once daily New docusate-senna (Senna S) 2 tab(s) by mouth 2 times daily New melatonin (Melatonin) 5 Milligram by mouth At bedtime New oxyCODONE (oxyCODONE 10 mg oral tablet) 10 Milligram by mouth Every 4 hours as needed for pain - severe (7-10) New oxyCODONE (oxyCODONE 5 mg oral tablet) 5 Milligram by mouth Every 4 hours as needed for pain - moderate (4-6) New polyethylene glycol 3350 (MiraLax) 17 gram by mouth Once daily Changed DULoxetine (Cymbalta 30 mg oral delayed release capsule) 1 cap by mouth Once daily Changed acetaminophen (acetaminophen 500 mg oral tablet) 2 tab(s) by mouth Every 8 hours Changed busPIRone (BuSpar 10 mg oral tablet) 1 tab(s) by mouth 3 times daily Changed cyclobenzaprine (Flexeril 5 mg oral tablet) 1 tab(s) by mouth 3 times daily as needed for spasms Changed digoxin (digoxin 125 mcg (0.125 mg) oral tablet) 1 tab(s) by mouth Once a day (in the morning) Hold for HR <60 Changed doxepin (doxepin 50 mg oral capsule) 2 cap by mouth At bedtime Changed furosemide 20 Milligram Once daily as needed for see order comments as needed for lower extremity swelling Changed levothyroxine (levothyroxine 75 mcg (0.075 mg) oral tablet) 1 tab(s) by mouth Once daily Changed metoprolol (metoprolol succinate 50 mg oral tablet, extended release) 1 tab(s) by mouth 2 times daily Unchanged apixaban (Eliquis 5 mg oral tablet) 1 tab(s) by mouth 2 times daily Unchanged atorvastatin Unchanged cyanocobalamin (Vitamin B-12 1000 mcg oral tablet) 1 tab(s) by mouth Once daily Unchanged multivitamin (Multiple Vitamins oral tablet) 1 tab(s) by mouth Once daily Unchanged omeprazole (omeprazole 20 mg oral delayed release tablet) 1 tab(s) by mouth Once daily Unchanged rOPINIRole (rOPINIRole 0.25 mg oral tablet) TAKE 1 TABLET BY MOUTH AT BEDTIME What How Much When Comments Stop Taking aripiprazole (Abilify 10 mg oral tablet) 1 tab(s) by mouth Once daily Stop Taking divalproex sodium (Depakote 250 mg oral delayed release tablet) 2 tab(s) by mouth 2 times daily Stop Taking lisinopril (lisinopril 5 mg oral tablet) 1 tab(s) by mouth Once daily Stop Taking ranitidine (ranitidine 150 mg oral tablet) 1 tab(s) by mouth Once daily Stop Taking topiramate (Topamax) 100 Milligram by mouth 2 times daily Stop Taking tramadol (tramadol 50 mg oral tablet) 1 tab(s) by mouth Every 4 hours as needed for as needed for pain Stop Taking trazodone (traZODone 150 mg oral tablet) 1 tab(s) by mouth At bedtime Stop Taking warfarin (warfarin 5 mg oral tablet) 1 tab(s) by mouth Once daily Stop Taking zolpidem (Ambien 10 mg oral tablet) 1 tab(s) by mouth At bedtime as needed for as needed for sleep Allergies mushrooms(Severe)swollen tongue Allergy Not found in Search Bee sting PollenMaple pollen, Maple Synvisc What to do next Instructions From Your Doctor C-Spine Care Instructions: 1. Change dressing daily with dry dressing. After you take the dressing off and there is no drainage from the incision, you may shower the following day. Do not submerge wound into whirlpool, bath,or pool. You can shower in the Cervical collar and replace the pads with dry ones following it. 2. You havedissolvable sutures in your incision. Allow the Steri strips to fall off on their own. If they havent fallen off in 10 days, you may pull them off. 3. No driving while taking narcotic pain medication. 4. Please return to your pre-hospital medications unless directed otherwise. 5. Resume a regular diet. Drink at least 8 glasses of water daily. This will prevent constipation. You should use an over the counter stool softener of your choice while taking narcotic pain medication. (Colace, Senna) 6. Do not smoke or use products that contain nicotine. Do not use Non Steroidal Anti-Inflammatory medications (NSAIDS: Advil, Aleve, Ibuprofen, Motrin, Naprosyn). These all impede bone healing. 7. DO NOT REMOVE CERVICAL COLLARexcept for routine dressing changes or following showering. To do this, lay flat on the bed and have someone hold your neck straight. then allow them to remove thecollar while you stay still. Diet Guidelines: Resume your regular diet Activity Guidelines: 1. Maintain collar as above. Wear the [email or web address] cervical collar at all times.You may bathe with it in place and then lay flat in bed with your head in fixed position while someone else exchanges the pads for a dry pair. You are not to drive while wearing this device. 2. You are encouraged to walk at least 150 feet per day to minimize the chances of developing a bloodclot in one of your legs (DVT) that might then travel to the lungs. Ambulate as tolerated; moving around helps reduce the risk of blood clots in the legs (DVT). 3. Continue taking short walks at home. Ambulate as tolerated. Use your rolling walker if advisedby Physical Therapy. 4. Take your time slowly up and down the steps one step at a time --holding onto the rail withboth hands-- someone should supervise you on steps for now. 5. No lifting > 10 lbs, twisting, or bending motions. Avoid lifting overhead. 6. Do NOT do heavy housework, such as bed-making, vacuuming or laundry for the first 6 weeks after surgery. SMOKING is a major health concern!Smoking greatly increases the risk of heart disease, cancer and stroke. - If you and your family don't smoke, continue this healthy choice! Remember to avoid secondhand smoke. - If you or anyone in your household does use tobacco products, please follow any smoking cessationadvice/counseling you received while in the hospital. If you would like more information about how to live tobacco free, please call the numbers or access the websites below: [facility] Care Line: [place] [facility] QUITLINE: 2-148-SvnvNpz ( ) http://1800quitnow.cancer.gov http://www.[employer] Date of Service:05/18/2023 Surgeon: Ngiha Swanson MD OPERATION PERFORMED:C5-C6 ACDF Date of Service:05/20/2023 Surgeon: Song Schneider MD OPERATION PERFORMED: 1. Right hip Irrigation and debridement, skin to bone 2. Right femur osteomyelitis resection 3. Saucerization of acetabulum and ilium Date of Service:05/27/2023 Surgeon: Song Schneider MD OPERATION PERFORMED: 1. Saucerization right proximal femur with proximal femur resection 2. Saucerization right acetabulum and posterior column 3. Saucerization right femoral shaft 4. Creation and insertion deep antibiotic beads right hip 5. Creation and insertion intramedullary antibiotic beads right femur 6. Complex primary closure 16cm Date of Service:05/29/2023 PROCEDUREPERFORMED: Incisional wound vac- removed on 06/03/2023 -Stool softener of choice while on pain medication -NO NSAIDS (Advil, Motrin, Ibuprofen, Aleve, Naproxen, Mobic, Celebrex) until further notice -NO SMOKING or use of any products containing nicotine including chew less tobacco and nicotine replacement medications - Research has shown that these can lead to a delay in wound/incision healing complications and delay of bone fusion and fracture healing and must be stopped in the postoperative period. Continuing these substance while your fracture is healing can lead to chronic pain and/or a non-united fracture that may require further surgery. -NO DRIVING until further notice - Take at least 10 deep breaths every hour, while awake, to help keep the lungs wide open and prevent pneumonia -Vitamin D recommendation: Your Vitamin D level was 20. A normal level is between 30-100. We would like you to take Vitamin D3 5,OOO IU once daily for 8 weeks post op. Follow up with Infectious Disease same day appointment as Orthopaedic Surgery: - Weekly Saturday Labs to be faxed to the ID Clinic at [phone] o Attention to Rhianna Sawant PA-C o CBC w/ diff, platelets, CMP, ESR, CRP, Recommended Antibiotics: Drug Dose Frequency Route Start Date Est. Stop Date Hard Stop Cont. to ID Appt. cefazolin 2g every 8 hours IV 05/27/2023 07/08/2023 _ X _ _ _ _ _ _ _ _ _ _ _ _ _ _ _ _ WOUND CARE: -Dressing change: - Apply a dry dressing daily to theRight leg until there is NO drainage from your incision for 3-4 consecutive days. - You may leave the incision open to air when the dressing has been dry for 3-4 days - if wrapping with an bisi bandage due to swelling - start wrapping at the toes and wrap to above the incision with light compression - -Personal Hygiene: - Do NOT get your incision wet until you are seen in the orthopaedic clinic for a wound check and you have been approved to do so. ACTIVITY GUIDELINES: Right lower extremity isweight bearing as toleratedwith the assistance of a walker as shown by Physical Therapy. - Right hip, knee and ankle range of motion as tolerated: NO specific restrictions - elevate foot/ankle above heart level to help decrease pain and swelling Right Terminal knee extension - While in bed, place a pillow under your heel and work on straightening your knee o (do not place the pillow directly under your knee) o This will allow for full terminal extension of your knee. o Do this exercise for 1 hour 3-4 times per day Call your doctor with questions regarding your Orthopaedic Injuries - Call with any questions concerning fevers > 101F, chills, redness, increased swelling, numbness, tingling, drainage or pus from your incisions or if you have any questions please phone ouroffice. - Saturday 8am-4:30pm Call - Evenings or Weekends call the hospital video control operator and ask for the Orthopaedic resident sales development consultant to be paged Your Hepatitis Screening Test was performed. Please follow up with your PCP. Diet Instructions 1200cc fluid restriction. 2g potassium restriction. Activity Instructions -Weight bearing all 4 extremities -No twisting/bending/lifting >10lbs Follow-Up Appointments Scheduled Follow-Up Appointments Date/Time:Provider/Resource: May 02:15 MD Anderson Kevin J Location/Instructions:[facility] [place], [address], [address], [address], [place] [address] Date/Time:Provider/Resource: May 02:25 BLANCA Wilson Michelle M Location/Instructions:[facility] [place], [address], [address], [address], [place] [address] The Following Services Have Been Arranged for You Service: Organization: Business Address: Phone Number: [facility] [address] [place] [address] ANDREINA HETAL, BL[place], [address] Test Results Test Name Test Result Date/Time Na 132 mmol/L 06/04/2023 06:19 EST K 5.1 mmol/L 06/04/2023 06:19 EST Cl- 99 mmol/L 06/04/2023 06:19 EST HCO3 26 mmol/L 06/04/2023 06:19 EST Anion Gap 7 mmol/L 06/04/2023 06:19 EST BUN 16 mg/dL 06/04/2023 06:19 EST Cret 0.47 mg/dL 06/04/2023 06:19 EST Estimated CrCl 131.80 mL/min 06/04/2023 07:13 EST eGFR CKD-EPI >90 mL/min/1.73 m2 06/04/2023 06:19 EST Glu 86 mg/dL 06/04/2023 06:19 EST Ca 8.9 mg/dL 06/04/2023 06:19 EST Mg 1.9 mg/dL 06/04/2023 06:19 EST WBC 5.82 K/uL 06/07/2023 05:08 EST Hgb 7.2 g/dL 06/07/2023 05:08 EST Hct 22.7 % 06/07/2023 05:08 EST RBC 2.90 M/uL 06/07/2023 05:08 EST MCV 78.3 fL 06/07/2023 05:08 EST MCHC 31.7 g/dL 06/07/2023 05:08 EST MCH 24.8 pg 06/07/2023 05:08 EST RDW 22.6 % 06/07/2023 05:08 EST Plts 492 K/uL 06/07/2023 05:08 EST MPV 8.6 fL 06/07/2023 05:08 EST ALT <5 unit/L 06/03/2023 03:56 EST T Bili 0.3 mg/dL 06/03/2023 03:56 EST Alk Phos 164 unit/L 06/03/2023 03:56 EST AST 17 unit/L 06/03/2023 03:56 EST Alb 2.7 g/dL 06/03/2023 03:56 EST Prot 6.1 g/dL 06/03/2023 03:56 EST Transferrin 180 mg/dL 06/03/2023 03:56 EST CReacProt 1.17 mg/dL 06/03/2023 03:56 EST ESR 55 mm/hr 06/03/2023 03:56 EST Ferritin 614.9 ng/mL 06/03/2023 03:56 EST Fe Sat 17 % 06/03/2023 03:56 EST Iron 36 ug/dL 06/03/2023 03:56 EST Total IBC 212 ug/dL 06/03/2023 03:56 EST Tests Pending None Procedures Performed C5-C6 ACDF 05/18/2023 Right hip Irrigation and debridement, skin to bone, Right femur o 05/20/2023 Diagnostic Radiology: (05/14/2023 12:08 EST XR Hips 3-4 Views w/AP Pelvis Bilat) IMPRESSION: Postoperative changes of both hips. No acute finding. [1] (05/19/2023 10:05 EST XR Pelvis Complete 3+ Views) IMPRESSION: Postoperative changes of both hips. No acute finding. [2] (05/20/2023 17:37 EST XR Pelvis 1 or 2 Views) (05/20/2023 17:37 EST XR Femur 2 Views Right) IMPRESSION: Expected postoperative changes of right proximal femoral resection. [3] (05/25/2023 12:32 EST XR Chest 1 View) IMPRESSION: 1. Right PICC with tip in lower SVC. [4] (05/28/2023 14:51 EST XR Pelvis 1 or 2 Views) IMPRESSION: Postsurgical changes of resection of the right proximal femur, possible developing heterotopic ossification about the surgical site. [5] MRI Imaging: (05/14/2023 13:17 EST MRI Spine Cervical w/ + w/o Contrast) IMPRESSION: 1. Exam is moderate to markedly limited due to motion. 2. Redemonstration of grade 2 anterolisthesis C5 on C6 with superimposed degenerative changes resulting in at least moderate central canal stenosis. Significant degenerative type I endplate changesat C5-6. 3. Left greater than right C5-6 facet arthropathy with significant edema and postcontrast enhancement in the periarticular soft tissues as well as in left C5-6 articular facets. 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 Differential diagnosis is inflammatory arthropathy and less likely infective arthropathy. Recommend clinical and laboratory correlation. [6] (05/15/2023 19:16 EST MRI Pelvis w/ + w/o Contrast) IMPRESSION: 1. Postsurgical changes of Girdlestone procedure involving the right hip. Large peripherally enhancing right hip joint effusion extending from hip joint to proximal thigh. If the procedure is remote the findings would be concerning for infection. 2. Signal abnormality of the right acetabulum and the right proximal femur. This may reflect postoperative granulation tissue. Chronic indolent infection not excluded, correlate with findings following fluid sampling. 3. Left total hip arthroplasty. Evaluation limited due to susceptibility artifact, however no evidence of hardware complication or large left hip joint effusion. 4. Right inguinal and pelvic lymphadenopathy likely reactive. [7] Nursing Assessment Chen: Female External Urinary Device Insert Date:05/14/23 03:15 Removal Date:No Removal Currently Documented. Chen: 05/20/2023 Indwelling Urethra 16 Fr Insert Date:05/20/23 11:14 (No insertion activity documented) Removal Date:05/28/23 09:26 Chen: 05/28/2023 Female External Urinary Device Insert Date:05/28/23 15:02 Removal Date:05/29/23 11:19 Chen: 05/29/2023 Straight Cath Urethra Insert Date:05/29/23 11:19 (No insertion activity documented) Removal Date:No Removal Currently Documented. Chen: 05/30/2023 Female External Urinary Device Insert Date:05/30/23 20:00 (No insertion activity documented) Removal Date:05/31/23 11:00 Chen: Female External Urinary Device Insert Date:05/31/23 20:00 Removal Date:06/01/23 16:00 Chen: 06/01/2023 Female External Urinary Device Insert Date:06/01/23 21:22 Removal Date:No Removal Currently Documented. Line: Peripherally inserted central catheter (PICC) Single Lumen Upper arm, right Insert Date:05/25/23 11:38 (No insertion activity documented) Removal Date:No Removal Currently Documented. SPECIAL NEEDS: Sensory Deficits: Sensation/Touch deficit Level of Consciousness Neuro: Alert Neurological Symptoms: Weakness ADLS: Moderate assistance Last BM: 06/06/2023 Basic Skin Assessment: [place], Warm, Dry Immunizations This Visit Recommend Covid vaccination and all applicable boosters. Recommend annual influenza vaccination this season. Pneumonia, shingles (HZV), and applicable adultvaccines per CDC guidelines. Special Instructions Common Emergency Awareness Tips Call 911 immediately if: experiencing any of the warning signs and symptoms of stroke: B.E. F.A.S.T. Balance: is there trouble with walking or coordination Eyes: is there double vision or visual loss Face: Smile, do both sides of face move equally Arm: Raise arms, do both arms move equally Speech: Is speech slurred or inappropriate Time: Time is critical, call 911 immediately Heart Attack Signs Chest discomfort: Most heart attacks involve discomfort in the center of the chest and lasts more than a few minutes, or goes away and comes back. It can feel like uncomfortable pressure, squeezing, fullness or pain. Discomfort in upper body: Symptoms can include pain or discomfort in one or both arms, back, neck, jaw or stomach. Shortness of breath: With or without discomfort. Other signs: Breaking out in a cold sweat, nausea, or lightheaded. Remember, MINUTES DO MATTER. If you experience any of these heart attack warning signs, call 03-01- to get immediate medical attention! Education Materials Food Basics for Chronic Kidney Disease Chronic kidney disease (CKD) is when your kidneys are not working well. They cannot remove waste, fluids, and other substances from your blood the way they should. These substances can build up, which can worsen kidney damage and affect how your body works. Eating certain foods can lead to a buildup of these substances. Changing your diet can help prevent more kidney damage. Diet changes may also delay dialysis or even keep you from needing it. What nutrients should I limit? Work with your treatment team and a food expert (dietitian) to make a meal plan that's right for you. Foods you can eat and foods you should limit or avoid will depend on the stage of your kidney disease and any other health conditions you have. The items listed below are not a complete list. Talk with your dietitian to learn what is best for you. Potassium Potassium affects how steadily your heart beats. Too much potassium in your blood can cause an irregular heartbeat or even a heart attack. You may need to limit foods that are high in potassium, such as: Liquid milk and soy milk. Salt substitutes that contain potassium. Fruits like bananas, apricots, nectarines, melon, prunes, raisins, kiwi, and oranges. Vegetables, such as potatoes, sweet potatoes, yams, tomatoes, leafy greens, beets, avocado, pumpkin, and winter squash. Beans, like lawson beans. Nuts. Phosphorus Phosphorus is a mineral found in your bones. You need a balance between calcium and phosphorus to build and maintain healthy bones. Too much added phosphorus from the foods you eat can pull calcium from your bones. Losing calcium can make your bones weak and more likely to break. Too much phosphorus can also make your skin itch. You may need to limit foods that are high in phosphorus or that have added phosphorus, such as: Liquid milk and dairy products. Dark-colored sodas or soft drinks. Bran cereals and oatmeal. Protein Protein helps you make and keep muscle. Protein also helps to repair your body's cells and tissues.One of the natural breakdown products of protein is a waste product called urea. When your kidneys are not working well, they cannot remove types of waste like urea. Reducing protein in your diet canhelp keep urea from building up in your blood. Depending on your stage of kidney disease, you may need to eat smaller portions of foods that are high in protein. Sources of animal protein include: Meat (all types). Fish and seafood. Poultry. Eggs. Dairy. Other protein foods include: Beans and legumes. Nuts and nut butter. Soy, like tofu. Sodium Salt (sodium) helps to keep a healthy balance of fluids in your body. Too much salt can increase your blood pressure, which can harm your heart and lungs. Extra salt can also cause your body to keep too much fluid, making your kidneys work harder. You may need to limit or avoid foods that are high in salt, such as: Salt seasonings. Soy and teriyaki sauce. Packaged, precooked, cured, or processed meats, such as sausages or meat loaves. Sardines. Salted crackers and snack foods. Fast food. Canned soups and most canned foods. Pickled foods. Vegetable juice. Boxed mixes or skjor-fq-hse boxed meals and side dishes. Bottled dressings, sauces, and marinades. Talk with your dietitian about how much potassium, phosphorus, protein, and salt you may have each day. Helpful tips Read food labels Check the amount of salt in foods. Limit foods that have salt or sodium listed among the first fiveingredients. Try to eat low-salt foods. Check the ingredient list for added phosphorus or potassium. "Phos" in an ingredient is a sign thatphosphorus has been added. Do not buy foods that are calcium-enriched or that have calcium added to them (are fortified). Buy canned vegetables and beans that say "no salt added" and rinse them before eating. Lifestyle Limit the amount of protein you eat from animal sources each day. Focus on protein from plant sources, like tofu and dried beans, peas, and lentils. Do not add salt to food when cooking or before eating. Do not eat star fruit. It can be toxic for people with kidney problems. Talk with your health care provider before taking any vitamin or mineral supplements. If told by your health care provider, track how much liquid you drink so you can avoid drinking toomuch. You may need to include foods you eat that are made mostly from water, like gelatin, ice cream, soups, and juicy fruits and vegetables. If you have diabetes: If you have diabetes (diabetes mellitus) and CKD, you need to keep your blood sugar (glucose) in the target range recommended by your health care provider. Follow your diabetes management plan. This may include: Checking your blood glucose regularly. Taking medicines by mouth, or taking insulin, or both. Exercising for at least 30 minutes on 5 or more days each week, or as told by your health care provider. Tracking how many servings of carbohydrates you eat at each meal. Not using orange juice to treat low blood sugars. Instead, use apple juice, cranberry juice, or clear soda. You may be given guidelines on what foods and nutrients you may eat, and how much you can have eachday. This depends on your stage of kidney disease and whether you have high blood pressure (hypertension). Follow the meal plan your dietitian gives you. To learn more: National [place] of Diabetes and Digestive and Kidney Diseases: niddk.nih.gov National Kidney Foundation: kidney.org Summary Chronic kidney disease (CKD) is when your kidneys are not working well. They cannot remove waste, fluids, and other substances from your blood the way they should. These substances can build up, which can worsen kidney damage and affect how your body works. Changing your diet can help prevent more kidney damage. Diet changes may also delay dialysis or even keep you from needing it. Diet changes are different for each person with CKD. Work with a dietitian to set up a meal plan that is right for you. This information is not intended to replace advice given to you by your health care provider. Make sure you discuss any questions you have with your health care provider. Document Revised: 10/05/2022 Document Reviewed: 10/10/2020 [employer] Patient Education 2022 [employer] How to Use an Incentive Spirometer An incentive spirometer is a tool that measures how well you are filling your lungs with each breath. Learning to take long, deep breaths using this tool can help you keep your lungs clear and active. This may help to reverse or lessen your chance of developing breathing (pulmonary) problems, especially infection. You may be asked to use a spirometer: After a surgery. If you have a lung problem or a history of smoking. After a long period of time when you have been unable to move or be active. If the spirometer includes an indicator to show the highest number that you have reached, your health care provider or respiratory therapist will help you set a goal. Keep a log of your progress as told by your health care provider. What are the risks? Breathing too quickly may cause dizziness or cause you to pass out. Take your time so you do not get dizzy or light-headed. If you are in pain, you may need to take pain medicine before doing incentive spirometry. It is harder to take a deep breath if you are having pain. How to use your incentive spirometer 1. Sit up on the edge of your bed or on a chair. 2. Hold the incentive spirometer so that it is in an upright position. 3. Before you use the spirometer, breathe out normally. 4. Place the mouthpiece in your mouth. Make sure your lips are closed tightly around it. 5. Breathe in slowly and as deeply as you can through your mouth, causing the piston or the ball to rise toward the top of the chamber. 6. Hold your breath for 35 seconds, or for as long as possible. If the spirometer includes a public speaking coach indicator, use this to guide you in breathing. Slow down your breathing if the indicator goes above the marked areas. 7. Remove the mouthpiece from your mouth and breathe out normally. The piston or ball will return to the bottom of the chamber. 8. Rest for a few seconds, then repeat the steps 10 or more times. Take your time and take a few normal breaths between deep breaths so that you do not get dizzy or light-headed. Do this every 12 hours when you are awake. 9. If the spirometer includes a goal marker to show the highest number you have reached (best effort),use this as a goal to work toward during each repetition. 10. After each set of 10 deep breaths, cough a few times. This will help to make sure that your lungs are clear. If you have an incision on your chest or abdomen from surgery, place a pillow or a rolled-up towel firmly against the incision when you cough. This can help to reduce pain while taking deep breaths and coughing. General tips When you are able to get out of bed: Walk around often. Continue to take deep breaths and cough in order to clear your lungs. Keep using the incentive spirometer until your health care provider says it is okay to stop using it. If you have been in the hospital, you may be told to keep using the spirometer at home. Contact a health care provider if: You are having difficulty using the spirometer. You have trouble using the spirometer as often as instructed. Your pain medicine is not giving enough relief for you to use the spirometer as told. You have a fever. Get help right away if: You develop shortness of breath. You develop a cough with bloody mucus from the lungs. You have fluid or blood coming from an incision site after you cough. Summary An incentive spirometer is a tool that can help you learn to take long, deep breaths to keep your lungs clear and active. You may be asked to use a spirometer after a surgery, if you have a lung problem or a history of smoking, or if you have been inactive for a long period of time. Use your incentive spirometer as instructed every 12 hours while you are awake. If you have an incision on your chest or abdomen, place a pillow or a rolled-up towel firmly against your incision when you cough. This will help to reduce pain. Get help right away if you have shortness of breath, you cough up bloody mucus, or blood comes fromyour incision when you cough. This information is not intended to replace advice given to you by your health care provider. Make sure you discuss any questions you have with your health care provider. Document Revised: 09/05/2020 Document Reviewed: 09/05/2020 [employer] Patient Education 2022 [email or web address]. PICC Guide Insertion, Care, and Removal PICC is short for Peripherally Inserted Central Catheter. A PICC is a long, soft, thin, flexible tube that is inserted into a vein in the upper arm and ends in the superior vena cava (SVC), a large vein just above the heart where there is a lot of blood flow (your central circulation). This allows medicines and IV fluids to be quickly distributed throughout the body. Intravenous (IV) therapy is the infusion of liquid substances directly into a vein. A PICC is a form of IV therapy/access that allows intravenous fluids, medications (antibiotics), chemotherapy, and total parenteral nutrition to be given. A PICC is inserted using a sterile technique by a specially trained health care provider. After insertion, correct placement of the PICC is confirmed using a tip confirmation system, and in some instances a portable chest x-ray. If taken care of properly, a PICC can remain in place for several months. A PICC can allow a personin need of further IV therapy to be discharged from the hospital early, either to home or to a rehabilitation facility. PICC care and teaching will be done by a home health care team if discharged to[facility]. Potential Problems Problems with a PICC can occasionally occur. These may include the following: Total or partial occlusion of the catheter caused by an accumulation of fibrin and blood cells (thrombus). There is a clot-dissolving medicine that can be given through the PICC to break up the occlusion. Inflammation of the vein (phlebitis) in which the PICC is placed. Signs of inflammation may includeredness, red streaks, pain at insertion site, or being able to feel a cord in the vein where the PICC is located. Upper arm venous thrombosis (clot) of superficial or deep vein. PICC movement (malposition). The PICC tip may move from its original position due to excessive physical activity or forceful coughing, sneezing, or vomiting. Infection in the PICC or at the insertion site. Signs of infection may include fever, chills, redness, swelling, or pus drainage from the PICC insertion site. A break or cut in the PICC. Never use scissors near the PICC. Nerve or tendon irritation or injury during PICC insertion. Activities and Restrictions You may bend your arm and move it freely. Moderate exercise such as walking does not harm your PICC. Avoid strenuous activity or activities that have constant arm movement or reaching such as weight lifting, jumping jacks, or vacuuming. Avoid moving/lifting heavy objects greater than 10 pounds. Avoid carrying bags or purses over your PICC shoulder or using crutches with the PICC arm. Avoid getting the PICC dressing (bandage) wet. When you shower or bathe wrap the PICC arm with plastic wrap and tape closed. Avoid swimming or hot tubs. Do not totally submerse the arm under water even if it is covered as it is difficult to stop water from getting under the PICC dressing. Moisture under the dressing can cause the dressing to fall off and is a source for infection. Care of Your PICC If you are an INPATIENT at a hospital or rehabilitation facility, your PICC care and medication administration will be done by a nurse. If you are DISCHARGED to home, a Community/Home Health Nurse will be assigned to change your dressing and teach you how to give your IV medication. Look at your site once a day. The PICC dressing should be dry and intact. The PICC site should be free from tenderness, redness, swelling, or drainage. Weekly dressing changes are needed and MUST be done ONLY by a nurse (more frequently if dressing gets wet, soiled, or loose). If your dressing looks loose, wet, or soiled, contact your nurse. If needed, reinforce the dressing with tape until the nurse arrives. NEVER REMOVE your PICC dressing. Flush PICC as directed by your nurse. Make them aware if PICC is difficult to flush or does not flush. DO NOT use force to flush PICC. NEVER allow blood pressure checks or blood draws on the PICC arm. NEVER use anything but the supplies provided by your nurse to care for your PICC or administer yourmedications. DO NOT remove your own PICC! Only a trained professional should remove your PICC. Contact your Community/Home Health Nurse if you have a problem or concern. Seek IMMEDIATE Medical Care If: Your PICC is accidentally pulled all the way out. If this happens, cover the insertion site with a bandage or gauze dressing. DO NOT throw the PICC away. Your nurse will need to inspect it. There is any type of drainage, redness, or swelling at the PICC insertion site. You cannot flush the PICC, it is difficult to flush, or the PICC leaks around the insertion site when it is flushed. You hear a flushing sound when the PICC is flushed. You have a pain, discomfort, or numbness in your arm, shoulder, or jaw on the same side as the PICC. You feel your heart racing or skipping beats. You notice a hole or tear in the PICC. You develop chills or fever. PICC Removal and Care A PICC is removed when it is no longer needed (treatment is complete), when it is not working properly (clotted), or when there are complications (swelling of the arm, which could be from a blood clot or infection). Risks and Complications: Generally this is a safe procedure. However, as with any procedure, problems can occur: Bleeding Infection Procedure: DO NOT remove the PICC yourself. An order from a health care provider is needed to remove the PICC. Only a health care provider trained in PICC removal, such as a PICC nurse, should take the PICC out. The PICC may be removed in the hospital or in an outpatient setting. Having a PICC removed is usually painless. Removal of the tape that holds the PICC in place may be the most uncomfortable part. After taking the PICC out the health care provider will hold gentle pressure on the exit site and place a bandage over the exit site. After the Procedure: Do not remove the bandage for 24 hours. When the bandage is removed, the small PICC insertion site may have a small scab. This site may be gently washed with soap and water, but do not remove or pickoff the scab. You do not need to put another bandage on the site. Avoid heavy or strenuous activity for 24 hours after the PICC is removed. This includes things likeweight lifting, strenuous yard work, or any physical activity with repetitive arm movement (baseball, football, etc.). Seek Medical Care If: Call or see your health care provider if you develop any of the following symptoms: Increasing tenderness, pain, or swelling in the PICC arm. Redness or a red streak, bleeding, or drainage from the PICC site. Numbness or tingling in your fingers, hand, or arm that had the PICC. Your PICC arm has a bluish color and is cold to the touch. You start to have chills or a fever. References Juan J Dozier M.D.,MD Angelina. [facility]. Peripherally Inserted Central Catheter (PICC).[email or web address].. [facility]. All About Your Peripherally Inserted Central Catheter (PICC).[facility].nm.December 2015. [employer] [place] [address] [place]: [employer], 2007. Print. Note * MD Philly, Aristides Lorenz: MODIFY, PERFORM, MODIFY, MODIFY, MODIFY Event Display: Brief Operative Note Authored Date: [id number] BRIEF OPERATIVE NOTE Name: KYM MURRIETA Patient Number: [id number] : 1960 Date of Service: 05/27/2023 Pre-op Diagnosis: 1. 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 Right hip sinus tract with drainage 3. Right hip retained abscess 4. Osteomyelitis right proximal femur 5. Osteomyelitis right femoral shaft 6. Osteomyelitis right acetabulum Post-op Diagnosis: Same Procedure: 1. Saucerization right proximal femur with proximal femur resection 2. Saucerization right acetabulum and posterior column 3. Saucerization right femoral shaft 4. Creation and insertion deep antibiotic beads right hip 5. Creation and insertion intramedullary antibiotic beads right femur 6. Complex primary closure 16cm Surgeon: Dr. Schneider Assistants: Zena PGY6, Philly PGY4 Anesthesia: General Estimated Blood Loss: 100cc _ Less than 50ml Drains: 19 Fr Gigi drain (deep) , 10 Fr HV drain ( superficial) Fluids: See anes record Urinary Output: Not measured Condition: Stable to PACU Complications: None identified Specimen: _ x None Findings: Healthy appearing tissue with granulation tissue formation, no fluid collection, no obvious signs of infective tissue Check one _ Pharmacologic VTE prophylaxis not indicated _ x Standard VTE prophylactic regimen ordered _ Pharmacologic VTE prophylaxis contraindicated due to increased risk of intraoperative and / or postoperative bleeding Check one _ No antibiotics indicated _ Standard prophylactic antibiotic regimen ordered _x Antibiotic regimen changed due to concern for infection ASSESSMENT AND PLAN: 63 year old female status post right hip Irrigation and debridement, skin to bone, right femur osteomyelitis resection, Saucerization of acetabulum and ilium s/p repeat irrigation and excisional debridement, wound closure on 05/27/23 - Future OR plans: No further return to OR anticipated - Weightbearing status: WBAT RLE - Drains:19 Fr Gigi drain (deep) , 10 Fr HV drain ( superficial); Maintain until minimal outpu t - Wound care and dressing: POD2 - PT/OT: Ordered - GI: ADAT - : chen in place - Pain control: tylenol, oxycodone - DVT PPx: Ok to resume from ortho trauma standpoint - per spine surgery, patient to begin pLov 40mg daily 21AM, with likely plan to transition to home therapeutic Eliquis 5mg BID once all surgeries completed. - Antibiotics: abx per ortho ID - current recs changed today to Ancef 2g q8h; continue to follow cultures - Imaging: No imaging indicated - Labs: AM CBC and BMP Vitamin D: hypovitaminosis, level is 20, 5000iu VitaminD3 daily -Home meds: per primary - Dispo:floor Please TT Ortho Trauma resident/BEN with questions Electronic Signature on File Electronically Reviewed/Signed by: Aristides Fraga Author Signature Dt/Tm:05/27/2023 09:53 AM Resident Division of Orthopaedics FROYLAN * MD Trejo Nicholas: PERFORM Event Display: Brief Operative Note Authored Date: [id number] BRIEF OPERATIVE NOTE Name: KYM MURRIETA Patient Number: [id number] : 1960 Date of Service: 05/20/2023 Pre-op Diagnosis: Right hip enhancing collection concerning for recurrence of infection Post-op Diagnosis: Same Procedure: Right hip Irrigation and debridement, skin to bone, Right femur osteomyelitis resection,Saucerization of acetabulum and ilium Surgeon: Wyatt Assistants: Neil Freitas Anesthesia: General Estimated Blood Loss: 800ml Less than 50ml Drains: 1x hemovac, wound vac Fluids: see anesthesia record Urinary Output: see anesthesia record Condition: stable to pacu Complications: none apparent Specimen: cultures, tissue None Findings: murky fluid, bone fistulas Check one _ Pharmacologic VTE prophylaxis not indicated _x Standard VTE prophylactic regimen ordered _ Pharmacologic VTE prophylaxis contraindicated due to increased risk of intraoperative and / or postoperative bleeding Check one _ No antibiotics indicated _ Standard prophylactic antibiotic regimen ordered _ x Antibiotic regimen changed due to concern for infection 63 year old female status post Right hip Irrigation and debridement, skin to bone, Right femur osteomyelitis resection, Saucerization of acetabulum and ilium - Future OR plans: Plan for return to OR, final date to be determined, potentially Saturday - Weightbearing status: WBAT RLE - Drains: x1 hemovac sewn - Wound care and dressing: wound vac -125mmhg continuous - PT/OT: Ordered - GI: ADAT - : chen - Pain control: tylenol, oxycodone - DVT PPx: Ok to resume from ortho trauma standpoint tonight - currently held in the setting of cervical spine surgery - Antibiotics: abx per ortho ID - Imaging: post-op XR pending - Labs:post-op CBC in pacu Vitamin D: hypovitaminosis, level is 20, 5000iu VitaminD3 daily -Home meds: per primary - Dispo:will require return to OR from ortho trauma Please TT Ortho Trauma resident/BEN with questions Electronic Signature on File Electronically Reviewed/Signed by: Damion Trejo MD Author Signature Dt/Tm:05/20/2023 11:37 AM Resident Division of Orthopaedics Electronically Reviewed/Signed by: Song Schneider MD Cosigner Signature Dt/Tm: 05/20/2023 03:08PM Division of Orthopaedics NR * MD Amado Timothy: PERFORM, MODIFY Event Display: Brief Operative Note Authored Date: [id number] BRIEF OPERATIVE NOTE Name: KYM MURRIETA Patient Number: [id number] : 1960 Date of Service: 05/18/2023 Pre-op Diagnosis: left C5-6 facet fracture dislocation with traumatic C5-6 anterolisthesis Post-op Diagnosis: same Procedure: C5-C6 ACDF Surgeon: Dr. Swanson Assistants: Nithin Amado Anesthesia: general Estimated Blood Loss: _ x Less than 50ml Drains: JPx1 cervical spine Fluids: see anesthesia report Urinary Output: see anesthesia report Condition: stable to PACU Complications: none apparent Specimen: _ x None Findings: as above, stable fixation and reduced C5-6 facet Check one x Pharmacologic VTE prophylaxis not indicated _ Standard VTE prophylactic regimen ordered _ Pharmacologic VTE prophylaxis contraindicated due to increased risk of intraoperative and / or postoperative bleeding Check one _ No antibiotics indicated x Standard prophylactic antibiotic regimen ordered _ Antibiotic regimen changed due to concern for infection ASSESSMENT: 63 yo F s/p C5-C6 ACDF for left C5-6 facet fracture dislocation with traumatic C5-6 anterolisthesis PLAN: Other: -c-collar at all times; no MAP goals, no HOB restriction -will require additional return to OR for right infected Girdlestone Weight bearing- no twisting/bending/lifting >10lbs Physical Therapy- ordered DVT prophylaxis- contra-indicated, will discuss when to resume Antibiotics- cefazolin 2g q8h for 24h Pain control- PO regimen with IV breakthrough Drain- JPx1 cervical, sewn Imaging- no additional imaging needed Labs- AM CBC and BMP Home Medications- restarted Diet/GI- ADAT to adult renal diet, bowel regimen : f/u voids IM comanagement: appreciate ongoing recs especially with electrolyte abnormalities Dispo- floor status Please page [phone] with questions. Electronic Signature on File Electronically Reviewed/Signed by: Nithin Amado MD Author Signature Dt/Tm:05/18/2023 01:29 PM Resident Division of Orthopaedics TV Surgical pathology study * MD Leyva Charles S: TRANSCRIBE, PERFORM, VERIFY Event Display: SP Micro Authored Date: [id number] 1. Microscopic examination performed; see Final Diagnosis. * MD Leyva Charles S: TRANSCRIBE, PERFORM, VERIFY Event Display: SP Dx Authored Date: [id number] 1. Soft tissue, right hip, sinus tract, excision: - Ulceration of skin. - Subcutaneous fibrosis, hemosiderin, and chronic inflammation. - Focal foreign body-type histiocytic reaction to birefringent material. - Compatible with sinus tract and scar. Jf Leyva MD (Electronically signed by) Verified: 05/25/2023 17:12 EST Performing Location: [facility] * MD Leyva Charles S: VERIFY MD Leyva Charles S: VERIFY, PERFORM Event Display: SP Disclaimer Authored Date: [id number] The following statement applies to flow cytometry, immunohistochemical, histochemical, molecular genetics, immunofluorescence, and in situ hybridization assays. These tests were developed and their performance characteristics determined by a [facility] Department of Pathology Laboratory. All controls show appropriate reactivity. Not all tests have been cleared or approved by the U.S. Food and Drug Administration. The FDA has determined that such clearance or approval is not necessary. For decalcified specimen types, focused validation may have been done that may or may not apply to all decalcified specimen types. Results should be interpreted with caution. * MD Leyva Charles S: VERIFY MD Leyva Charles S: VERIFY, PERFORM Event Display: SP Gross Authored Date: [id number] 1. Received fresh, labeled with patient name, medical record number and ``sinus tract right hip. Stitch bergeron distal is a 11.9 x 4.1 cm skin ellipse with a 14.0 x 8.5 x 3.2 cm portion of yellow adipose tissue attached. There is a stitch at one end of the skin, marking distal. The epidermal surface is young and wrinkled with a 2.2 x 1.0 ulcerated skin lesion. The external surface has been inked black. Specimen has been cross-sectioned perpendicularly from distal end to proximal end, revealing homogenous yellow lobular fatty tissue with a possible sinus capsule underlying the ulcerated skin lesion. Technical Sales Manager sections submitted. Block summary: 1A: Ulcerated lesion with possible sinus capsule; 1B: Technical Sales Manager section of ulcerated lesion; 1C-1E: Technical Sales Manager sections with possible sinus tract () * MD Leyva Charles S: VERIFY MD Leyva Charles S: VERIFY, TRANSCRIBE Event Display: SP Clinical History Authored Date: [id number] Pre-Op/Post-Op Diagnosis: Right hip infection; right proximal femur infection. Patient Care team information Care Team Personnel Name: Nakul Kirby Christine A Position: Pharmacist Schedule II Member Role: Pharmacy - Lifetime Name: Nakul Cabrera Ann Position: Pharmacist Schedule II Member Role: Pharmacy - Lifetime Name: MD Leyva Charles S Position: Physician - Pathologist Member Role: Lifetime Relationship Address: Address: [facility] [address] [place] [address] Name: MD Don Karissa A Position: Referring Member Role: Primary Care Provider Address: Address: [facility] [place] [facility] [address] Name: Asa Galindo Position: HIS Supervisor_P Member Role: HIS Lifetime Care Team Related Persons Name: BILLY BARAKAT Address: [address] [phone] Name: KORIN MURRIETA
--- OUTSIDE RECORDS SUMMARY | 2023-06-20 03:55 | External Medical Summary ---
Author Name Unknown Address Unknown Organization K1F:LABORATORY [facility] - [address] [place] [address] Laboratory Report Ordering Provider Test Date Status RIRI JEAN BAPTISTE 06/10/2023 04:52:17 Final Observation Date Value Abnormality Reference (Units ) Status Polychromasia [Presence] in Blood by Light microscopy 06/10/2023 04:52:17 Moderate Abnormal None Seen Final Target cells [Presence] in Blood by Light microscopy 06/10/2023 04:52:17 Moderate Abnormal None Seen Final Performing Location LAB[facility]ATORY [facility] - [address] [address]
--- OUTSIDE RECORDS SUMMARY | 2023-06-20 03:55 | External Medical Summary | Summary of Care ---
Author Name Unknown Organization [facility] Address [address] [facility] [place] [address] Phone [phone] Care Team Providers Care Equip Maint Eng Name Role Phone Minda Estradana Primary Care Provider Encounter Details Date Type Department Care Team (Late st Contact Info) Description 06/10/2023 Orders Only Lab Mobile Phlebotomy [facility] [address] [place] [id number] Jose Faith MD [address] [place] [address] Chronic multifocal osteomyelitis of right femur (HCC)* Allergies Active Allergy Reactions Criticality Noted Date Comments Mushroom Extract Complex 01/16/2022 Patient just stated that she is allergic to mushrooms Hylan G-F 20 04/13/2004 Pseudoseptic joint documented as of this encounter (statuses as of 06/10/2023) Medications Medication Sig Dispensed Refills Start Date [...] as of this encounter (statuses as of 06/10/2023) Active Problems Problem Noted Date Diagnosed Date [...] 01/16/2006 INTEST POSTOP NONABSORB 12/11/2005 JOE RESEARCH OTHER*[id number] 11/20/2005 ADVANCE DIRECTIVE INFORMATION 12/05/2004 Overview: refused Asthma, mild persistent 11/14/2004 Overview: PER PROVIDER PROTOCOL. Other thalassemia 04/08/2004 Osteoarthritis of multiple joints 04/06/2004 documented as of this encounter (statuses as of 06/10/2023) Resolved Problems Problem Noted Date Diagnosed Date Resolved Date MEDICATION USE AGREEMENT 07/16/201412/2015 Overview: Updated 07/16/2014 [facility] [place] Poison oak dermatitis 01/18/20132014 Acute bronchitis, antibiotics [...] as of this encounter (statuses as of 06/10/2023) Immunizations Name Administration Dates Next Due COVID-19, [...] Chronic multifocal osteomyelitis of right femur (HCC) Expected: 06/10/2023, Expires: 06/10/2024 COMPREHENSIVE METABOLIC PANEL Lab Routine Chronic multifocal osteomyelitis of right femur (HCC) Expected: 06/10/2023, Expires: 06/10/2024 ERYTHROCYTE SEDIMENTATION RATE (ESR) Lab Routine Chronic multifocal osteomyelitis of right femur (HCC) Expected: 06/10/2023, Expires: 06/10/2024 CRP (INFLAMMATORY MARKER) Lab Routine Chronic multifocal osteomyelitis of right femur (HCC) Expected: 06/10/2023, Expires: 06/10/2024 Scheduled Procedures Name Priority Associated Diagnoses Date/Ti [...] MEDICATION MONITORING YEARLY 03/10/2023 03/10/2022, 12/28/2021 GFR 03/14/2023 03/14/2022, 03/01, 03/12/2022, Additional history exists Vergara's Esophagus Surveilance 03/09/2025 03/09/2022, 08/11/2015, 07/30/2014, Additional history exists Diabetes Screening 03/14/2025 03/14/2022, 0 03/13/2022, 03/12/2022, Additional history exists Colonoscopy 08/17/2026 08/17/2016, 08/01, [...] Primary Chronic osteomyelitis, pelvic region and thigh documented in this encounter Advance Directives Latest Code Status on File Code Status Date Activated Date Inactivated Comments Full Code 01/11/2022 9:52 PM 03/14/2022 7:53 PM Care Teams Equip Maint Eng Relationship Specialty Start Date End Date Minda Estrada DO [address] [place] [address] Dr Lacy [address] [place] [address], [place] [address] PCP - General Family Medicine 11/21/22 documented as of this encounter
--- OUTSIDE RECORDS SUMMARY | 2023-06-20 03:55 | External Medical Summary ---
Author Name Unknown Address Unknown Organization K1F:LABORATORY [facility] - [address] [address] Laboratory Report Ordering Provider Test Date Status ITARIRI 06/10/2023 04:52:17 Final Observation Date Value Abnormality Reference (Units ) Status CRP, low-sensitivity 06/10/2023 04:52:17 4 <=5 (mg/L) Final Performing Location LABORATORY [facility] - [address] [address]
--- OUTSIDE RECORDS SUMMARY | 2023-06-20 03:55 | External Medical Summary ---
Author Name Unknown Address Unknown Organization K1F:[facility] - [address] [address] Laboratory Report Ordering Provider Test Date Status RIRI JEAN BAPTISTE 06/12/2023 04:55:46 Final Observation Date Value Abnormality Reference (Units ) Status BUN 06/12/2023 04:55:46 13 6-20 (mg/dL) Final Creatinine 06/12/2023 04:55:46 0.6 0.5-1.0 (mg/dL) Final Glomerular filtration rate/1.73 sq M.predicted [Volume Rate/Area] in Serum, Plasma or Blood by Creatinine-based formula (CKD-EPI) 06/12/2023 04:55:46 >90 >=60 (mL/min) Final eGFR is calculated based on the CKD-EPI 2020 equation SODIUM 06/12/2023 04:55:46 130 Below low normal 135 -146 (mmol/L) Final Potassium 06/12/2023 04:55:46 5.1 3.5-5.1 (m mol/L) Final Cl 06/12/2023 04:55:46 95 Below low normal 98- 107 (mmol/L) Final CO2 06/12/2023 04:55:46 26 22-32 (mmo l/L) Final Anion gap 06/12/2023 04:55:46 9 7-15 (mmol /L) Final Glucose 06/12/2023 04:55:46 95 70-120 (mg /dL) Final Calcium 06/12/2023 04:55:46 8.5 8.4-10.2 ( mg/dL) Final Performing Location LABORATORY [facility] - [address] [address]
--- OUTSIDE RECORDS SUMMARY | 2023-06-20 03:55 | External Medical Summary ---
Author Name Unknown Address Unknown Organization K1F:LABORATORY [facility] - [address] [facility] [place] [address] Laboratory Report Ordering Provider Test Date Status RIRI JEAN BAPTISTE 06/10/2023 04:52:17 Final Observation Date Value Abnormality Reference (Units ) Status SYNC LEUKOCYTES IN BLOOD BY AUTOMATED COUNT 06/10/2023 04:52:17 7.36 4.00-10.80 (K/uL) Final Segs 06/10/2023 04:52:17 61.3 40.0-75.0 (%) Final Lymphs % 06/10/2023 04:52:17 21.6 18.0-42.0 (%) Final Monos 06/10/2023 04:52:17 10.6 1.0-11.0 (%) Final Eosinophils 06/10/2023 04:52:17 5.6 0.0-6.0 (%) Final Basos 06/10/2023 04:52:17 0.5 0.0-2.0 (%) Final Immature Granulocyte, Percent 06/10/2023 04:52:17 0.4 0.0-2.0 (%) Final Absolute Segs 06/10/2023 04:52:17 4.51 1.80-7.70 (K/uL) Final Lymphs, absolute 06/10/2023 04:52:17 1.59 1.00-4.80 (K/ul) Final Monos, Abs 06/10/2023 04:52:17 0.78 0.00-1.10 (K/uL) Final Eos, Abs 06/10/2023 04:52:17 0.41 0.00-0.70 (K/uL) Final Basos, Abs 06/10/2023 04:52:17 0.04 0.00-0.20 (K/uL) Final Immature Granulocytes, Number 06/10/2023 04:52:17 0.03 0.00-0.20 (K/uL) Final Performing Location LABORATORY [facility] - [address] [place] [address]
--- OUTSIDE RECORDS SUMMARY | 2023-06-20 03:56 | External Medical Summary | Summary of Care ---
Author Name Unknown Organization [facility] Address [address] [facility] [place] [address] Phone [phone] Care Team Providers Care Senior Dot Net Developer Name Role Phone NatalieDeniseen Dafne Primary Care Provider Encounter Details Date Type Department Care Team (Late st Contact Info) Description 06/09/2023 Orders Only Lab Mobile Phlebotomy [facility] [address] [place] [phone] Jose Faith MD [address] [place] [address] Routine medical exam* Allergies Active Allergy Reactions Criticality Noted Date Comments Mushroom Extract Complex 01/16/2022 Patient just stated that she is allergic to mushrooms Hylan G-F 20 04/13/2004 Pseudoseptic joint documented as of this encounter (statuses as of 06/09/2023) Medications Medication Sig Dispensed Refills Start Date [...] as of this encounter (statuses as of 06/09/2023) Active Problems Problem Noted Date Diagnosed Date [...] 01/16/2006 INTEST POSTOP NONABSORB 12/11/2005 JOE RESEARCH OTHER*[id number] 11/20/2005 ADVANCE DIRECTIVE INFORMATION 12/05/2004 Overview: refused Asthma, mild persistent 11/14/2004 Overview: PER PROVIDER PROTOCOL. Other thalassemia 04/08/2004 Osteoarthritis of multiple joints 04/06/2004 documented as of this encounter (statuses as of 06/09/2023) Resolved Problems Problem Noted Date Diagnosed Date Resolved Date MEDICATION USE AGREEMENT 07/16/201412/2015 Overview: Updated 07/16/2014 [facility] [place] Poison oak dermatitis 01/18/20132014 Acute bronchitis, antibiotics [...] as of this encounter (statuses as of 06/09/2023) Immunizations Name Administration Dates Next Due COVID-19, [...] Team (Late st Contact Info) Description 06/10/2023 Laboratory Lab Mobile Phlebotomy [facility] [address] [facility] [place] [address] [place], [facility] [address] [facility] [place] [address] Scheduled Orders Name Type Priority Associated Diagnoses Orde r Schedule COMPREHENSIVE METABOLIC PANEL Lab Routine Routine medical exam Expected: 06/10/2023, Expires: 06/09/2024 CBC Lab Routine Routine medical exam Expected: 06/10/2023, Expires: 06/09/2024 Scheduled Procedures Name Priority Associated Diagnoses Date/Ti [...] (1 of 2) 2012 Mammogram 11/06/2015 11/05/2014, 04/07/2013, 09/22/2012, Additional history exists Cervical Cancer Screening [...] as of this encounter Visit Diagnoses Diagnosis Routine medical exam- Primary Routine general medical examination at a health care facility documented in this encounter Advance Directives Latest Code Status on File Code Status Date Activated Date Inactivated Comments Full Code 01/11/2022 9:52 PM 03/14/2022 7:53 PM Care Teams Senior Dot Net Developer Relationship Specialty Start Date End Date Minda Estrada DO [address] [place] [address], [place] [address] PCP - General Family Medicine 11/21/22 documented as of this encounter
[2023-06-20] MEDS: ceFAZolin 2000MG 2,000 MG/15 ML SYR IV SCH ×3 (04:37→21:36)
[2023-06-20] MEDS: MICONAZOLE NITRATE POWDER 85 GM EXT PRN ×2 (05:24→15:59)
[2023-06-20] MEDS: ACETAMINOPHEN 500 MG TAB PO SCH ×3 (05:24→23:33)
[2023-06-20] MEDS: LEVOTHYROXINE SODIUM 75 MCG TABLET PO SCH (05:26)
[2023-06-20 07:11] LABS: Basophils # (auto) 0.02 K/uL (0.00-0.20); Basophils % (auto) 0.4 %; Eosinophils % (auto) 5.8 %; Hematocrit (blood only) 24.5 % (37.0-47.0); Hemoglobin 7.7 g/dl (12.0-16.0); Immature Granulocytes # (auto) 0.01 K/uL (0.01-0.20); Immature Granulocytes % (auto) 0.2 %; Lymphocytes # (auto) 1.46 K/uL (1.20-3.40); Mean Corpuscular Hemoglobin 22.7 pg (25.0-34.0); Mean Corpuscular Hgb Conc 31.4 g/dL (32.0-36.0); Mean Corpuscular Volume 72.3 fL (80.0-100.0); Monocytes # (auto) 0.67 K/uL (0.11-0.59); Monocytes % (auto) 12.9 %; Neutrophils # (auto) 2.75 K/uL (1.40-6.50); Neutrophils % (auto) 52.7 %; Platelet Count 330 K/uL (130-400); RDW Coefficient of Variation 23.1 % (11.5-14.5); RDW Standard Deviation 56.9 fL (36.4-46.3); Red Blood Count 3.39 M/uL (4.20-5.40); White Blood Count 5.21 K/ul (4.8-10.8)
[2023-06-20 07:38] LABS: Albumin Globulin Ratio 0.9 (0.9-2); BUN Creatinine Ratio 18.6 (10-20); Bilirubin,Total 0.5 mg/dl (0.2-1.0); C Reactive Protein 1.99 mg/dl (0-0.5); Calcium 8.3 mg/dl (8.6-10.3); Creatinine Clr Calc Pharmacy 105.4 ml/min; Est GFR (African American) 114.7 ml/min; Est GFR (Non-African American) 98.9 ml/min; Globulin 3.4 gm/dl (2.5-4.0); Potassium 4.5 mmol/L (3.5-5.1); Total Protein 6.4 gm/dl (6.0-8.3)
[2023-06-20 07:40] LABS: Anisocytosis Present; Hypochromasia Present; Polychromasia 2+; Target Cells 1+
[2023-06-20] MEDS: busPIRone 5 MG TAB PO SCH ×3 (09:20→22:12)
[2023-06-20] MEDS: guaiFENesin 600 MG TABCR PO SCH ×2 (09:21→22:12)
[2023-06-20] MEDS: PANTOprazole 40 MG TAB PO SCH (09:21)
[2023-06-20] MEDS: DULoxetine HCL 30 MG CAP PO SCH (09:21)
[2023-06-20] MEDS: DOCUSATE SODIUM/SENNA 50/8.6MG TAB PO SCH ×3 (09:21→22:12)
[2023-06-20] MEDS: METOPROLOL SUCC 50MG EXT REL TAB PO SCH ×2 (09:22→22:12)
--- NOTE | 2023-06-20 18:03 | Hospitalist Progress Note ---
Date of Service June 20, 2023 Assessment & Plan (1) Osteomyelitis of right femur: Plan: Patient is a 63-year-old female with past medical history of diastolic heart failure with an EF of 60 to 65% on 03/23, atrial fibrillation on Eliquis, beta thalassemia with a baseline hemoglobin of 8, hypothyroidism, hypertension, history of gastric bypass, and anxiety/depression who presents to the hospital in regard to recent right femur osteomyelitis with abscess that was surgically drained. Patient to be admitted for IV antibiotics and setting up home health as she had left AGAINST MEDICAL ADVICE from the previous rehab without any of her recommended IV antibiotics Doing well, blood cultures here remain no growth to date and no evidence of sepsis or recurrent infection Has PICC line in place and continues on cefazolin 2 g every 8 hours-will extend the date of her antibiotics through 07/10/2023 as she missed 2 days Follow blood cultures -Status post removal of artificial hip joint at [facility], patient reports sutures are due to be taken out-she was to have her appointment today for follow-up -Prescribed oxycodone as needed for pain -Follow once weekly CBC, CMP, CRP, ESR while on antibiotics -Plans being made for home IV antibiotics -Follow-up with orthopedic surgery after discharge (2) Spondylolisthesis of cervical region: Plan: - Secondary to fall that occurred on 05/13 -Patient apparently has appointment with trauma surgeon today for follow-up -She is to be wearing cervical collar at all times per discharge summary from [facility] -Flexeril as needed for spasm -No picking up more than 10 pounds (3) HTN (hypertension): Plan: - Continue metoprolol for hypertension and atrial fibrillation (4) Hyponatremia: Plan: - Admission sodium of 127, chronic issue, up to 130 today-she is at her baseline She is down 9 kg since her last admission so doubt volume overload -Suspect SIADH given multiple psychiatric medications, trend BMP (5) Anemia: Plan: - Secondary to history of beta thalassemia -Baseline hemoglobin is approximately 8, continue Eliquis with no evidence of active bleeding (6) Right heart failure, unspecified: Plan: - Echocardiogram on 03/21/2023 showing ejection fraction of 60 to 65% with no valvular vegetations seen at that time -Previously was taking Lasix 40 mg daily, however, switcheed to 20 mg of p.o. Lasix as needed upon previous admission, will hold off routine Lasix for now. (7) Generalized anxiety disorder: Plan: - Patient on multiple psychiatric medications including duloxetine 30 mg daily, buspirone 10 mg 3 times a day, doxepin 30 mg p.o. daily and hydroxyzine 50 to 100 mg 3 times a day as needed for anxiety -Continue home medications except for hydroxyzine which we will hold-she was on this for previous itching of the skin from old scabies infection-no longer needed (8) Diabetes: Plan: - Borderline diabetic with most recent A1c being 6.3 without medication -No need for basal bolus insulin at this time (9) RLS (restless legs syndrome): Plan: - Continue ropinirole (10) Hx of thalassemia: Plan: - As above (11) Atrial fibrillation, chronic: Plan: - On Eliquis for anticoagulation -Continue metoprolol and digoxin for rate control (12) Hypothyroidism: Plan: - Continue levothyroxine (13) Rash and nonspecific skin eruption: Plan: Previously had suspected scabies back in March 2023 which was treated at that time. I saw her then and now on her leg wounds are significantly improved and almost completely resolved Do not suspect ongoing infection Plan DVT prophylaxis: Eliquis Disposition-continued stay Will setting up home antibiotics, hopeful for discharge to home tomorrow Admission and Anticipated Discharge Date Admission Date: June 19, 2023 Subjective Patient feeling well, pain is controlled with oxycodone in the neck and right hip. She is eager to go home as soon as home IV antibiotics can get set up. Physical Exam Constitutional: WD/WN, vitals as above Respiratory: normal respiratory effort, lungs clear to auscultation Cardiovascular: Rate/Rhythm: regular rate and + irregularly irregular Heart Sounds: no murmur Extremities: + edema (Trace edema legs bilaterally) Right upper extremity with PICC line in place with dressing intact, no erythema Gastrointestinal (Abdomen): normal bowel sounds, soft, nontender, no hepatosplenomegaly Musculoskeletal: Extremities: + extremities abnormal to inspection (Right hip anterior and posterior with large incisions with sutures in place) Skin: A few residual scabs on legs but overall significantly improved from when I saw her previously Results & Data Results & Data Vital Signs (Past 12 Hours) Vital Signs Temp Pulse Resp BP Pulse Ox O2 Del Method 06/20/23 16:19 36.8 C 86 16 99/61 L 95 Room Air 06/20/23 08:04 36.4 C L 75 16 94/64 L 98 Room Air Laboratory Results CBC, BMP, blood cultures, ESR, LFTs reviewed PG Care Time/CCT Total # of Minutes Spent Total Time Spent with Patient: Total time spent is greater than 50% in coordination of care (as documented) at patient's floor/unit and/or counseling patient: Coding Level of Care Code 35539 SUB INP/OBS CARE MIN Diagnoses Osteomyelitis of right femur M86.9 Osteomyelitis type: unspecified type Spondylolisthesis of cervical region M43.12 HTN (hypertension) I10 Hyponatremia E87.1 Anemia D64.9 Right heart failure, unspecified I50.810 Generalized anxiety disorder F41.1 Diabetes E11.9 RLS (restless legs syndrome) G25.81 Hx of thalassemia Z86.2 Atrial fibrillation, chronic I48.20 Hypothyroidism E03.9 Rash and nonspecific skin eruption R21 (1) Osteomyelitis of right femur Osteomyelitis type: unspecified type Qualified Code(s): M86.9 - Osteomyelitis, unspecified
--- NOTE | 2023-06-20 20:45 | Billing Data ---
Date of Service June 20, 2023 Coding Level of Care Code 27208 INT INP/OBS CARE
[2023-06-20] MEDS: DIGOXIN 0.125 MG TAB PO SCH (22:11)
[2023-06-20] MEDS: rOPINIRole HCL 0.25 MG TABLET PO SCH (22:12)
[2023-06-20] MEDS: DOXEPIN HCL 50 MG CAPSULE PO SCH (22:12)
[2023-06-21] MEDS: ceFAZolin 2000MG 2,000 MG/15 ML SYR IV SCH ×2 (04:26→12:21)
[2023-06-21] MEDS ORDERED: KETOCONAZOLE 2% CR 15 GM TUBE EXT PRN (05:13)
[2023-06-21] MEDS: LEVOTHYROXINE SODIUM 75 MCG TABLET PO SCH (05:54)
[2023-06-21] MEDS: ACETAMINOPHEN 500 MG TAB PO SCH ×2 (05:54→13:47)
[2023-06-21] MEDS: APIXABAN 5 MG TABLET PO SCH (08:19)
[2023-06-21] MEDS: busPIRone 5 MG TAB PO SCH ×2 (08:19→13:46)
[2023-06-21] MEDS: DOCUSATE SODIUM/SENNA 50/8.6MG TAB PO SCH (08:20)
[2023-06-21] MEDS: METOPROLOL SUCC 50MG EXT REL TAB PO SCH (08:20)
[2023-06-21] MEDS: guaiFENesin 600 MG TABCR PO SCH (08:20)
[2023-06-21] MEDS: oxyCODONE HCL IR 5 MG TAB (IMMEDIATE RELEASE) PO PRN ×2 (08:25→16:28)
[2023-06-21 08:54] LABS: Basophils # (auto) 0.03 K/uL (0.00-0.20); Basophils % (auto) 0.6 %; Eosinophils # (auto) 0.29 K/uL (0.00-0.50); Eosinophils % (auto) 5.7 %; Hematocrit (blood only) 25.4 % (37.0-47.0); Hemoglobin 7.7 g/dl (12.0-16.0); Immature Granulocytes # (auto) 0.02 K/uL (0.01-0.20); Immature Granulocytes % (auto) 0.4 %; Lymphocytes # (auto) 1.27 K/uL (1.20-3.40); Mean Corpuscular Hemoglobin 22.3 pg (25.0-34.0); Mean Corpuscular Hgb Conc 30.3 g/dL (32.0-36.0); Mean Corpuscular Volume 73.6 fL (80.0-100.0); Mean Platelet Volume 9.2 fL (9.4-12.4); Monocytes # (auto) 0.75 K/uL (0.11-0.59); Monocytes % (auto) 14.7 %; Neutrophils # (auto) 2.73 K/uL (1.40-6.50); Neutrophils % (auto) 53.6 %; Nucleated RBC # (auto) 0.02 K/uL (0.00-0.12); Nucleated RBC % (auto) 0.4 %; Platelet Count 343 K/uL (130-400); RDW Coefficient of Variation 23.4 % (11.5-14.5); RDW Standard Deviation 57.7 fL (36.4-46.3); Red Blood Count 3.45 M/uL (4.20-5.40); White Blood Count 5.09 K/ul (4.8-10.8)
[2023-06-21 09:15] LABS: Anion Gap 6 (3-11); BUN Creatinine Ratio 21.9 (10-20); Blood Urea Nitrogen 14 mg/dl (6-23); Calcium 8.2 mg/dl (8.6-10.3); Carbon Dioxide 24 mmol/L (21-32); Chloride 98 mmol/L (98-107); Creatinine Clr Calc Pharmacy 97.1 ml/min; Est GFR (African American) 111.6 ml/min; Est GFR (Non-African American) 96.3 ml/min; Glucose 93 mg/dl (70-99(Fasting)); Potassium 4.3 mmol/L (3.5-5.1); Sodium 128 mmol/L (136-145)
[2023-06-21 09:22] LABS: Alanine Aminotransferase < 3 U/L (7-52); Albumin Globulin Ratio 0.8 (0.9-2); Alkaline Phosphatase 160 U/L (34-104); Aspartate Aminotransferase 10 U/L (13-39); Bilirubin,Total 0.5 mg/dl (0.2-1.0); Globulin 3.7 gm/dl (2.5-4.0); Total Protein 6.7 gm/dl (6.0-8.3)
[2023-06-21 09:39] LABS: Hypochromasia Present; Poikilocytosis Present; Polychromasia 1+; Target Cells 2+
[2023-06-21] MEDS: DULoxetine HCL 30 MG CAP PO SCH (10:49)
[2023-06-21] MEDS: PANTOprazole 40 MG TAB PO SCH (10:49)
--- NOTE | 2023-06-21 13:25 | Discharge Summary ---
Discharge Summary Date of Service June 21, 2023 Notes For Next Care Provider Needs weekly CBC, CMP, ESR, CRP while on IV antibiotics Needs Orthopedics follow up within 1 week Needs suture removal at discretion of her Orthopedic Surgeon Medication Changes From Visit oxycodone 10mg po q4h prn pain Admission HPI Per Admitting Provider Patient is a 63-year-old female with past medical history of diastolic heart failure with an EF of 60 to 65% on 03/23, atrial fibrillation on Eliquis, beta thalassemia with a baseline hemoglobin of 8, hypothyroidism, hypertension, history of gastric bypass, and anxiety/depression who presents to the hospital in regard to recent right femur osteomyelitis. Patient originally presented to [facility] on 05/13 after a fall and at that time was found to have a C5-C6 spondylolisthesis. She was subsequently transferred to [facility] and admitted to the Ortho trauma department and underwent anterior cervical discectomy and fusion on 05/18. Also at [facility], she was complaining of right hip pain with elevated ESR and CRP. An MRI was performed which demonstrated right femur osteomyelitis. She was taken to the OR on 05/20 for proximal femur, acetabulum, anterior column saucerization with antibiotic bead and wound VAC placement with return to the OR on 05/27 for right hip irrigation and debridement with placement of antibiotic beads. She was started on a 6-week course of cefazolin that will be completed on 07/08/2023. She was subsequently discharged to an acute rehab facility called [facility] where she felt like she was being treated poorly and sitting in her own feces. Because of this, she was signed out AMA on 06/17/2023. When she went home, home health nursing did not come to administer her antibiotics. She has been 2 days without antibiotics and she called her PCP who recommended she come to the hospital for admission. ED course: Patient evaluated by provider. Labs are significant for a hemoglobin of 8.2 which is her baseline, MCV of 73.6 which is improved from her baseline, sodium of 127 (hyponatremia is a chronic issue), creatinine of 0.56, and alkaline phosphatase of 191 (chronically elevated). Blood cultures were taken, however, dose of cefazolin was given. 2 g of cefazolin was given as well as 500 cc of normal saline. 5 mg dose of oxycodone was given for pain of right hip. Hospitalist service was consulted for admission for administration of IV antibiotics for osteomyelitis. Principal Dx & Hospital Course #1 = Principal Diagnosis (1) Osteomyelitis of right femur: Patient is a 63-year-old female with past medical history of diastolic heart failure with an EF of 60 to 65% on 03/23, atrial fibrillation on Eliquis, beta thalassemia with a baseline hemoglobin of 8, hypothyroidism, hypertension, history of gastric bypass, and anxiety/depression who presents to the hospital in regard to recent right femur osteomyelitis with abscess that was surgically drained. Patient to be admitted for IV antibiotics and setting up home health as she had left AGAINST MEDICAL ADVICE from the previous rehab without any of her recommended IV antibiotics Doing well, blood cultures here remain no growth to date and no evidence of sepsis or recurrent infection Has PICC line in place and continues on cefazolin 2 g every 8 hours-will extend the date of her antibiotics through 07/10/2023 as she missed 2 days Follow blood cultures-remain NGTD -Status post right hip surgical washout and placement of antibiotic beads at [facility], patient reports sutures are due to be taken out-she missed her appointment for follow-up. I contacted her Orthopedic's office and am awaiting instruction on a call back as to when to remove sutures. -Prescribed oxycodone as needed for pain -Follow once weekly CBC, CMP, CRP, ESR while on antibiotics -Plans made for home IV antibiotics with PICC line care and lab draws at [facility] every Saturday -Follow-up with orthopedic surgery after discharge (2) Spondylolisthesis of cervical region: - Secondary to fall that occurred on 05/13 -Patient apparently has appointment with trauma surgeon today for follow-up -She is to be wearing cervical collar at all times per discharge summary from [facility] -Flexeril as needed for spasm -No picking up more than 10 pounds (3) HTN (hypertension): - Continue metoprolol for hypertension and atrial fibrillation (4) Hyponatremia: Admission sodium of 127, chronic issue, up to 128-130-she is at her baseline She is down 9 kg since her last admission so doubt volume overload Suspect SIADH given multiple psychiatric medications, trend BMP as outpt Her Cymbalta dose was lowered to 30mg daily at [facility] for this reason (5) Anemia: -Secondary to history of beta thalassemia -Baseline hemoglobin is approximately 8, continue Eliquis with no evidence of active bleeding (6) Right heart failure, unspecified: - Echocardiogram on 03/21/2023 showing ejection fraction of 60 to 65% with no valvular vegetations seen at that time -Previously was taking Lasix 40 mg daily, however, switched to 20 mg of p.o. Lasix as needed upon previous admission, will hold off routine Lasix for now. (7) Generalized anxiety disorder: - Patient on multiple psychiatric medications including duloxetine 30 mg daily, buspirone 10 mg 3 times a day, doxepin 30 mg p.o. daily and hydroxyzine 50 to 100 mg 3 times a day as needed for anxiety -Continue home medications except for hydroxyzine which we will hold-she was on this for previous itching of the skin from old scabies infection-no longer needed (8) Diabetes: - Borderline diabetic with most recent A1c being 6.3 without medication -No need for basal bolus insulin at this time (9) RLS (restless legs syndrome): - Continue ropinirole (10) Hx of thalassemia: - As above (11) Atrial fibrillation, chronic: - On Eliquis for anticoagulation -Continue metoprolol and digoxin for rate control (12) Hypothyroidism: - Continue levothyroxine (13) Rash and nonspecific skin eruption: Previously had suspected scabies back in March 2023 which was treated at that time. I saw her then and now on her leg wounds are significantly improved and almost completely resolved Do not suspect ongoing infection Plan DVT prophylaxis: Padmini Disposition-dc to home with IV antibiotics,outpatient PT/OT Rx provided which is what she wanted. Home Health was not available for her through any agencies unfortunately. She will come to [facility] once weekly for PICC line care and lab draws and go to outpt PT/OT Discharge Exam Constitutional WD/WN, vitals as above Respiratory normal respiratory effort, lungs clear to auscultation Cardiovascular Rate/Rhythm: regular rate and + irregularly irregular Heart Sounds: no murmur Extremities: + edema (Trace edema legs bilaterally) Gastrointestinal (Abdomen) normal bowel sounds, soft, nontender, no hepatosplenomegaly Musculoskeletal Extremities: + extremities abnormal to inspection (Right hip anterior and posterior with large incisions with sutures in place) Updated Medication List Medication Instructions Recorded Confirmed Type acetaminophen 500 mg tablet 1,000 mg PO Q8 Pain 10/11/22 06/19/23 History (Tylenol Extra Strength) nsjiovhe-crs-bmpza acid 0.4 1 tab PO QAM 10/11/22 06/19/23 History mg-lycopene 300 mcg-lutein 250 mcg tablet (Centrum Silver) omeprazole 20 mg tablet,delayed 20 mg PO DAILY 10/11/22 06/19/23 History release polyethylene glycol 3350 17 gram 17 g PO BID PRN Constipation 10/11/22 06/19/23 History oral powder packet (Miralax) buspirone 10 mg tablet 10 mg PO TID #270 tabs 10/24/22 06/19/23 Rx digoxin 125 mcg (0.125 mg) tablet 125 mcg PO QPM #90 tabs 10/24/22 06/19/23 Rx ropinirole 0.25 mg tablet 0.25 mg PO HS #90 tabs 11/22/22 06/19/23 Rx doxepin 100 mg capsule 100 mg PO HS 01/23/23 06/19/23 History cyclobenzaprine 10 mg tablet 10 mg PO TID PRN muscle spasm #30 02/27/23 06/19/23 Rx tabs levothyroxine 75 mcg tablet 75 mcg PO DAILY #90 tabs 02/27/23 06/19/23 Rx cyanocobalamin (vitamin B-12) 1,000 mcg PO QAM 04/01/23 06/19/23 History 1,000 mcg capsule Cefazolin Sodium 2 g IV TID 06/19/23 06/19/23 History apixaban 5 mg tablet (Eliquis) 5 mg PO BID 06/19/23 06/19/23 History ascorbic acid (vitamin C) 500 mg 500 mg PO DAILY 06/19/23 06/19/23 History tablet (Vitamin C) cholecalciferol (vitamin D3) 125 125 mcg PO DAILY 06/19/23 06/19/23 History mcg (5,000 unit) tablet (Vitamin D3) furosemide 20 mg tablet (Lasix) 20 mg PO QAM PRN edema 06/19/23 06/19/23 History guaifenesin 600 mg tablet, 600 mg PO Q12H 06/19/23 06/19/23 History extended release 12 hr (Mucinex) melatonin 10 mg tablet 20 mg PO HS 06/19/23 06/19/23 History metoprolol succinate 50 mg 50 mg PO BID 06/19/23 06/19/23 History tablet,extended release 24 hr sennosides 8.6 mg-docusate sodium 2 tab-cap PO BID 06/19/23 06/19/23 History 50 mg tablet (Senna Plus) zinc 50 mg tablet 50 mg PO DAILY 06/19/23 06/19/23 History duloxetine 30 mg capsule,delayed 30 mg PO DAILY #30 caps 06/21/23 Rx release ketoconazole 2 % topical cream 1 applic EXT TID PRN rash under 06/21/23 Rx skin folds #15 grams oxycodone 10 mg tablet 10 mg PO Q4H PRN .severe pain #30 06/21/23 Rx tabs Hospital Stay Data Consultations 06/19/23 19:07 ED Decision to Admit Stat Pending Results Patient Have Any Pending Studies at Discharge: Yes (Final blood cultures-no growth to date) Discharge Instructions Given to Patient (Per Discharging Provider) Please continue on the IV cefazolin through 07/10/23 with weekly blood work and PICC line care to be done at [facility] starting Monday 06/25. Please ensure you have a rescheduled appointment with your Orthopedic Surgeon within 1 week. Total Time Total Time Spent Total Time Spent (In Minutes): 45 min Coding Level of Care Code 30774 INP/OBS DISCH >30 MIN Diagnoses Osteomyelitis of right femur M86.9 Osteomyelitis type: unspecified type Spondylolisthesis of cervical region M43.12 HTN (hypertension) I10 Hyponatremia E87.1 Anemia D64.9 Right heart failure, unspecified I50.810 Generalized anxiety disorder F41.1 Diabetes E11.9 RLS (restless legs syndrome) G25.81 Hx of thalassemia Z86.2 Atrial fibrillation, chronic I48.20 Hypothyroidism E03.9 Rash and nonspecific skin eruption R21
== END 2023-06-21 18:32 | disposition home or self-care (01) | DRG 540 ==
LOC: ED 16:43 → 3N 20:58 → SUATTDRO 20:58 → 3N 22:38

== ENCOUNTER 2023-07-09 01:06 | Observation (INO) ==
[2023-07-09] MEDS ORDERED: LORazepam 2 MG/1 ML VIAL IM STA (01:15)
[2023-07-09] MEDS ORDERED: SODIUM CHLORIDE 0.9% 1,000 ML IV SCH ×2 (01:30→02:45)
[2023-07-09] MEDS ORDERED: DROPERIDOL 5 MG/2 ML VIAL IM STA ×2 (01:36→02:08)
[2023-07-09] MEDS ORDERED: LORazepam 1 MG/1 ML SYR ED Inj Use IM STA (01:52)
[2023-07-09] MEDS ORDERED: LORazepam 1 MG/1 ML SYR ED Inj Use IV STA (01:56)
--- OUTSIDE RECORDS SUMMARY | 2023-07-09 01:58 | External Medical Summary | Continuity of Care Document ---
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 Name Role Phone Cyndy Don Primary Care Physician [phone] Encounter [facility] [id number] Date(s): 07/04/23 - 07/04/23 [facility] [address] [facility] [address], [address] [place] [address] [phone] Encounter Diagnosis Chronic multifocal osteomyelitis, right femur(Discharge Diagnosis) - 06/20/23 Methicillin susceptible Staphylococcus aureus infection as the cause of diseases classified elsewhere(Discharge Diagnosis) - 06/20/23 Discharge Disposition: Home or Self Care Attending Physician: JILLIAN Sawant Michelle M Referring Physician: MD Schneider Kevin James Allergies, Adverse Reactions, Alerts Substance Reaction Severity Status Synvisc Active Bee sting 1 Active Pollen 2 Maple pollen Maple Active Allergy Not found in Search 3 Active mushrooms swollen tongue Severe Active 1Could have bee sting allergy? Possible toxic reaction? 2pt. stated does not know what reaction it causes 3[place] Assessment and Plan Extracted from: Title:Clinical Document Author:JILLIAN Sawant Mich elle M Date:07/04/23 ID ORTHO OUTPATIENT NOTE Name: LAURIE HAMILTON Patient Number: [id number] : 1960 Date of Service: 07/04/2023 Chief Complaint: _ s/p hospitalization 05/14 - 06/07/23 with right femoral osteomyelitis; septic hip with abscess ID consult 05/17/23 surgery 05/27/23 [facility]; saucerization surgery 05/20/23 [facility]; saucerization femur with resection; right acetabulum and femoral shaft; cx + MSSA surgery 05/18/23 [facility]; closed reduction C5/6 facet fracture with fusion HPI: _ Ms. Hamilton is a 63 year old woman with hx of HF, Afib on eliquis, C5-C6 spondylolisthesis, Bilateral LOIS c/b multiple infected R LOIS s/p right hip [place] about 2 years ago comes to [facility] for management of progressive C5-C6 spondylolisthesis and R hip pain. She was found to have R hip septic arthritis, osteomyelitis with overlying abscess s/p I&D (05/16) and multiple saucerizations of R hip bones with antibiotic beads placement (05/20) with intra op cultures growing MSSA. 1. Right hip LOIS s/p [place] procedure c/b septic arthritis, osteomyelitis of femur with overlying abscess - s/p I&D on 05/16 with drainage of 10cc bloody purulent fluid - She went to the OR on 05/20/2023; surgeon: Dr. Song Schneider for the following procedures; 1. Saucerization of the right proximal femur with proximal femur resection 2. Saucerization right acetabulum posterior column 3. Saucerization of right anterior column and area, separate incision 4. Saucerization of right femoral shaft 5. Creation incision deep antibiotic beads right hip -Per OR note; there was purulent fluid surrounding the femur, resection of 8 cm segment of retained proximal femur with moth-eaten appearance consistent with osteomyelitis, significant destruction of the acetabulum medially consistent with osteomyelitis. 1 g of vancomycin and 1.2 g of tobramycin was placed in the ASIS incision and PSIS incision area was irrigated with sterile saline and a strand of 30 7 PM MD beads with 2.2 g of tobramycin and 2 g of vancomycin on a #1 Prolene was placed in the deep tissue. - Intra op cultures from anaerobic bottles (05/20); MSSA and R hip aspiration cultures; MSSA (05/16) - MRSA swab positive on 05/17 - WBC 8.8 , Tmax 36.8 C , (05/14) ESR > 130 and CRP 17.3 - Currently on cefezolin 2g IV Q8H 05/27/23, Surgeon; Dr. Song Schneider 1. Saucerization right proximal femur with proximal femur resection 2. Saucerization right acetabulum and posterior column 3. Saucerization right femoral shaft 4. Creation and insertion deep antibiotic beads right hip 5. Creation and insertion intramedullary antibiotic beads right femur 6. Complex primary closure 16cm Per OR note: No purulence seen with overall clean wound. 10ccs of Genex beads with 1g of vancomycin and 80mg of gentamicin was placed into the intramedullary canal of the proximal femur and deep into the acetabulum. Also 1.2g of tobramycin powder was added in the deep tissues. A 19 Gigi drain was placed in the deep tissues and 10 Fr hemovac in the superficial tissues. 2. Hx of L LOIS - s/p revision about 1 year ago -On suppressive therapy, however not taking for last few months since she has ran out Discharged on IV cefazolin; plan until 07/08/23; then chronic suppression Pt left AMA from facility; PICC remained but no abx Recommended ED which pt did; was then set up with [facility] infusion room Pt has missed last 3 week appts at infusion room for PICC dressing changes and labs Denies fevers, chills, sweats, n, v, diarrhea, rashes Hip doing OK; still with sutures in place Current Home Meds: (Last Updated 06/07 12:21) DULoxetine (Cymbalta 30 mg oral delayed release capsule) 30 mg PO Daily acetaminophen (acetaminophen 500 mg oral tablet) 1,000 mg PO q8h apixaban (Eliquis 5 mg oral tablet) 5 mg PO bid atorvastatin busPIRone (BuSpar 10 mg oral tablet) 1 tab PO tid ceFAZolin (ceFAZolin 2 g/50 [id number] dextrose intravenous solution) 2,000 mg IV q8h cholecalciferol (Vitamin D3) 125 mcg PO Daily cyanocobalamin (Vitamin B-12 1000 mcg oral tablet) 1,000 mcg PO Daily cyclobenzaprine (Flexeril 5 mg oral tablet) 5 mg PO tid PRN: spasms digoxin (digoxin 125 mcg (0.125 mg) oral tablet) 125 mcg PO qAM Hold for HR <60 docusate-senna (Senna S) 2 tab PO bid doxepin (doxepin 50 mg oral capsule) 100 mg PO qhs furosemide 20 mg Daily PRN: see order comments as needed for lower extremity swelling levothyroxine (levothyroxine 75 mcg (0.075 mg) oral tablet) 75 mcg PO Daily melatonin (Melatonin) 5 mg PO qhs metoprolol (metoprolol succinate 50 mg oral tablet, extended release) 50 mg PO bid multivitamin (Multiple Vitamins oral tablet) 1 tab PO Daily omeprazole (omeprazole 20 mg oral delayed release tablet) 20 mg PO Daily oxyCODONE (oxyCODONE 5 mg oral tablet) 5 mg PO q4h PRN: pain - moderate (4-6) oxyCODONE (oxyCODONE 10 mg oral tablet) 10 mg PO q4h PRN: pain - severe (7-10) polyethylene glycol 3350 (MiraLax) 17 g PO Daily rOPINIRole (rOPINIRole 0.25 mg oral tablet) TAKE 1 TABLET BY MOUTH AT BEDTIME Allergies and Sensitivities: Pollen(Maple) Pollen(Maple pollen) mushrooms(swollen tongue) Allergy Not found in Search Synvisc Bee sting Past Medical History: Problems: Heart failure Afib Thalassemia Asthma Contusion of left knee S/P total knee replacement Orthostatic hypotension Puncture wound of foot Shoulder pain Cervicalgia Bipolar Arthritis HTN (hypertension) Depression Knee pain, bilateral Foot pain, left SOB (shortness of breath) Acid reflux Weight gain OBJECTIVE Vitals: Last Updated 06/08/23 06:50 Date Temp BP Location Pulse RR SpO2 Pain 06/08/23 0 06/08/23 0 06/08/23 7 Vital Signs are the last 3 documented. No Orthostatic Data Available Height and Weight: Last Updated 06/08/23 05:31 Date BMI Wt(kg) Wt(lb) Method Ht(cm) (ft-in) Method 06/08/23 89.1 196 Bed Scale 06/06/23 91 200 Bed Scale 06/05/23 90.3 199 Bed Scale Heights and Weights are the last 3 documented. Physical Exam _ AxOx3, NAD; sitting in electric wheelchair RPICC nontender; no drainage or arm swelling noted; bandage half off Hip viewed; no drainage or cellulitis noted; sutures in place; some swelling noted ASSESSMENT: Ms. Hamilton is a 63 year old woman with hx of HF, Afib on eliquis, C5-C6 spondylolisthesis, Bilateral LOIS c/b multiple infected R LOIS s/p right hip [place] about 2 years ago comes to [facility] for management of progressive C5- C6 spondylolisthesis and R hip pain. She was found to have R hip septic arthritis, osteomyelitis with overlying abscess s/p I&D (05/16) and multiple saucerizations of R hip bones with antibiotic beads placement (05/20) with intra op cultures growing MSSA. Problem List 1. Right hip LOIS s/p [place] procedure c/b septic arthritis, osteomyelitis of femur with overlying abscess - s/p I&D on 05/16 with drainage of 10cc bloody purulent fluid - She went to the OR on 05/20/2023; surgeon: Dr. Song Schneider for the following procedures; 1. Saucerization of the right proximal femur with proximal femur resection 2. Saucerization right acetabulum posterior column 3. Saucerization of right anterior column and area, separate incision 4. Saucerization of right femoral shaft 5. Creation incision deep antibiotic beads right hip -Per OR note; there was purulent fluid surrounding the femur, resection of 8 cm segment of retained proximal femur with moth-eaten appearance consistent with osteomyelitis, significant destruction of the acetabulum medially consistent with osteomyelitis. 1 g of vancomycin and 1.2 g of tobramycin was placed in the ASIS incision and PSIS incision area was irrigated with sterile saline and a strand of 30 7 PM MD beads with 2.2 g of tobramycin and 2 g of vancomycin on a #1 Prolene was placed in the deep tissue. - Intra op cultures from anaerobic bottles (05/20); MSSA and R hip aspiration cultures; MSSA (05/16) - MRSA swab positive on 05/17 - WBC 8.8 , Tmax 36.8 C , (05/14) ESR > 130 and CRP 17.3 - Currently on cefezolin 2g IV Q8H She went to the OR today, Surgeon; Dr. Song Schneider (05/27/23) for following procedure below; 1. Saucerization right proximal femur with proximal femur resection 2. Saucerization right acetabulum and posterior column 3. Saucerization right femoral shaft 4. Creation and insertion deep antibiotic beads right hip 5. Creation and insertion intramedullary antibiotic beads right femur 6. Complex primary closure 16cm Per OR note: No purulence seen with overall clean wound. 10ccs of Genex beads with 1g of vancomycin and 80mg of gentamicin was placed into the intramedullary canal of the proximal femur and deep into the acetabulum. Also 1.2g of tobramycin powder was added in the deep tissues. A 19 Gigi drain was placed in the deep tissues and 10 Fr hemovac in the superficial tissues. 2. Hx of L LOIS - s/p revision about 1 year ago -On suppressive therapy, however not taking for last few months since she has ran out RECOMMENDATIONS: Discussed with Dr. Schneider who is seeing pt today as well 1. Discontinue cefazolin 2 grams IV q 8 hours e-prescribed cefadroxil 500 mg PO BID for suppression (for left hip infection) 2. PICC pulled in clinic without issues verbal care instructions given to pt 3. LABS: CBC/d, BMP; ESR; CRP; handed to pt for immed and q 2 weeks 4. F/U coordinated with Dr. Schneider's team 5. Request call should any concerning ID symptom or question arises; pt verbalized understanding of the plan She was asking about following with providers closer to home Addendum by Alli RN, [facility] on July 04, 2023 14:36 EST Orders faxed to [facility] Infusion Room Medications acetaminophen 500 mg oral tablet Start: 06/07/23 12:16:00 EST, 2 tab, PO, q8h Start Date: 06/07/23 Status: Ordered atorvastatin Start: 05/14/23 4:39:00 EST Start Date: 05/14/23 Status: Ordered BuSpar 10 mg oral tablet Start: 11/27/12 16:47:00, 1 tab, PO, tid Start Date: 11/27/12 Status: Ordered cefadroxil 500 mg oral capsule Start: 07/04/23 13:35:00 EST, 1 cap, PO, bid, Disp# 60 cap, Refills: 5, Pharmacy: [id number] Start Date: 07/04/23 Stop Date: 12/31/23 Status: Ordered Cymbalta 30 mg oral delayed [...] Start Date: 06/07/23 Status: Ordered metoprolol succinate 50 mg oral tablet, extended [...] Daily Start Date: 11/27/12 Status: Ordered oxyCODONE (capsule) 5 mg oral Start: 07/04/23 14:09:00 EST, 1 cap, PO, q6h, Disp# 22 cap, Refills: 0, PRN: as needed for pain, Pharmacy: [id number] Start Date: 07/04/23 Status: Ordered oxyCODONE 10 mg oral tablet [...] PO, Daily Start Date: 06/07/23 Status: Ordered Problem List Condition Confirmation Course Effective Dates [...] Dates Health Status Clinical Service Informant Chronic multifocal osteomyelitis, right femur Discharge Diagnosis 06/20/23 Methicillin susceptible Staphylococcus aureus infection as the cause of diseases classified elsewhere Discharge Diagnosis 06/20/23 Procedures Procedure Date Related Diagnosis Body Site Status B/L TKR 07/26/09 Completed gastric bypass 2006 Completed section Complete d Left knee scopes 1 Comple verenice 1X2: 1995 & 1997 Social History Social History Type Response Smoking Status Never smoked cigaret etienne Sex Female Implantable Device List Procedure Provider Procedure Date Device Type Site Unknown Unknown 05/27/23 Unknown Unknown Device Identifier Serial Number Lot or Batch Number Manufacturing Date Expiration Date Distinct Identification Code MRI Safety Implantable Status Assigning Authority Unknown Unknown [id number] Unknown 12/28/25 Unknown Unknown Active Unknown Procedure Provider Procedure Date Device Type Site Unknown Unknown 05/20/23 Unknown Unknown Device Identifier Serial Number Lot or Batch Number Manufacturing Date Expiration Date Distinct Identification Code MRI Safety Implantable Status Assigning Authority Unknown Unknown [id number] Unknown 04/30/24 Unknown Unknown Active Unk nown [...] Unknown Unknown Unknown Unknown Active Unkn own ID Ortho Outpt Note * JILLIAN Sawant, Rhianna Belcher: MODIFY, MODIFY, PERFORM, MODIFY, MODIFY Event Display: ID Ortho Outpt Note Authored Date: [id number] ID ORTHO OUTPATIENT NOTE Name: LAURIE HAMILTON Patient Number: [id number] : 1960 Date of Service: 07/04/2023 Chief Complaint: _ s/p hospitalization 05/14 - 06/07/23 with right femoral osteomyelitis; septic hipwith abscess ID consult 05/17/23 surgery 05/27/23 [facility]; saucerization surgery 05/20/23 [facility]; saucerization femur with resection; right acetabulum and femoral shaft; cx + MSSA surgery 05/18/23 [facility]; closed reduction C5/6 facet fracture with fusion HPI: _ Ms. Hamilton is a 63 year old woman with hx of HF, Afib on eliquis, C5-C6 spondylolisthesis, Bilateral LOIS c/b multiple infected R LOIS s/p right hip [place] about 2 years ago comes to [facility] for management of progressive C5-C6 spondylolisthesis and R hip pain. She was found to have R hip septic arthritis, osteomyelitis with overlying abscess s/p I&D (05/16) and multiple saucerizations of R hip bones with antibiotic beads placement (05/20) with intra op cultures growing MSSA. 1. Right hip LOIS s/p [place] procedure c/b septic arthritis, osteomyelitis of femur with overlying abscess - s/p I&D on 05/16 with drainage of 10cc bloody purulent fluid - She went to the OR on 05/20/2023; surgeon: Dr. Song Schneider for the following procedures; 1. Saucerization of the right proximal femur with proximal femur resection 2. Saucerization right acetabulum posterior column 3. Saucerization of right anterior column and area, separate incision 4. Saucerization of right femoral shaft 5. Creation incision deep antibiotic beads right hip -Per OR note; there was purulent fluid surrounding the femur, resection of 8 cm segment of retainedproximal femur with moth-eaten appearance consistent with osteomyelitis, significant destruction ofthe acetabulum medially consistent with osteomyelitis. 1 g of vancomycin and 1.2 g of tobramycin was placed in the ASIS incision and PSIS incision area was irrigated with sterile saline and a strand o f 30 7 PM MD beads with 2.2 g of tobramycin and 2 g of vancomycin on a #1 Prolene was placed in thedeep tissue. - Intra op cultures from anaerobic bottles (05/20); MSSA and R hip aspiration cultures; MSSA (05/16) - MRSA swab positive on 05/17 - WBC 8.8 , Tmax 36.8 C , (05/14) ESR > 130 and CRP 17.3 - Currently on cefezolin 2g IV Q8H 05/27/23, Surgeon; Dr. Song Schneider 1. Saucerization right proximal femur with proximal femur resection 2. Saucerization right acetabulum and posterior column 3. Saucerization right femoral shaft 4. Creation and insertion deep antibiotic beads right hip 5. Creation and insertion intramedullary antibiotic beads right femur 6. Complex primary closure 16cm Per OR note: No purulence seen with overall clean wound. 10ccs of Genex beads with 1g of vancomycinand 80mg of gentamicin was placed into the intramedullary canal of the proximal femur and deep intothe acetabulum. Also 1.2g of tobramycin powder was added in the deep tissues. A 19 Gigi drain was placed in the deep tissues and 10 Fr hemovac in the superficial tissues. 2. Hx of L LOIS - s/p revision about 1 year ago -On suppressive therapy, however not taking for last few months since she has ran out Discharged on IV cefazolin; plan until 07/08/23; then chronic suppression Pt left AMA from facility; PICC remained but no abx Recommended ED which pt did; was then set up with [facility] infusion room Pt has missed last 3 week appts at infusion room for PICC dressing changes and labs Denies fevers, chills, sweats, n, v, diarrhea, rashes Hip doing OK; still with sutures in place Current Home Meds: (Last Updated 06/07 12:21) DULoxetine (Cymbalta 30 mg oral delayed release capsule) 30 mg PO Daily acetaminophen (acetaminophen 500 mg oral tablet) 1,000 mg PO q8h apixaban (Eliquis 5 mg oral tablet) 5 mg PO bid atorvastatin busPIRone (BuSpar 10 mg oral tablet) 1 tab PO tid ceFAZolin (ceFAZolin 2 g/50 [id number]-iotcnkd dextrose intravenous solution) 2,000 mg IV q8h cholecalciferol (Vitamin D3) 125 mcg PO Daily cyanocobalamin (Vitamin B-12 1000 mcg oral tablet) 1,000 mcg PO Daily cyclobenzaprine (Flexeril 5 mg oral tablet) 5 mg PO tid PRN: spasms digoxin (digoxin 125 mcg (0.125 mg) oral tablet) 125 mcg PO qAM Hold for HR <60 docusate-senna (Senna S) 2 tab PO bid doxepin (doxepin 50 mg oral capsule) 100 mg PO qhs furosemide 20 mg Daily PRN: see order comments as needed for lower extremity swelling levothyroxine (levothyroxine 75 mcg (0.075 mg) oral tablet) 75 mcg PO Daily melatonin (Melatonin) 5 mg PO qhs metoprolol (metoprolol succinate 50 mg oral tablet, extended release) 50 mg PO bid multivitamin (Multiple Vitamins oral tablet) 1 tab PO Daily omeprazole (omeprazole 20 mg oral delayed release tablet) 20 mg PO Daily oxyCODONE (oxyCODONE 5 mg oral tablet) 5 mg PO q4h PRN: pain - moderate (4-6) oxyCODONE (oxyCODONE 10 mg oral tablet) 10 mg PO q4h PRN: pain - severe (7-10) polyethylene glycol 3350 (MiraLax) 17 g PO Daily rOPINIRole (rOPINIRole 0.25 mg oral tablet) TAKE 1 TABLET BY MOUTH AT BEDTIME Allergies and Sensitivities: Pollen(Maple) Pollen(Maple pollen) mushrooms(swollen tongue) Allergy Not found in Search Synvisc Bee sting Past Medical History: Problems: Heart failure Afib Thalassemia Asthma Contusion of left knee S/P total knee replacement Orthostatic hypotension Puncture wound of foot Shoulder pain Cervicalgia Bipolar Arthritis HTN (hypertension) Depression Knee pain, bilateral Foot pain, left SOB (shortness of breath) Acid reflux Weight gain OBJECTIVE Vitals: Last Updated 06/08/23 06:50 Date Temp BP Location Pulse RR SpO2 Pain 06/08/23 0 06/08/23 0 06/08/23 7 Vital Signs are the last 3 documented. No Orthostatic Data Available Height and Weight: Last Updated 06/08/23 05:31 Date BMI Wt(kg) Wt(lb) Method Ht(cm) (ft-in) Method 06/08/23 89.1 196 Bed Scale 06/06/23 91 200 Bed Scale 06/05/23 90.3 199 Bed Scale Heights and Weights are the last 3 documented. Physical Exam _ AxOx3, NAD; sitting in electric wheelchair RPICC nontender; no drainage or arm swelling noted; bandage half off Hip viewed; no drainage or cellulitis noted; sutures in place; some swelling noted ASSESSMENT: Ms. Hamilton is a 63 year old woman with hx of HF, Afib on eliquis, C5-C6 spondylolisthesis, Bilateral LOIS c/b multiple infected R LOIS s/p right hip [place] about 2 years ago comes to [facility] for management of progressive C5-C6 spondylolisthesis and R hip pain. She was found to have R hip septic arthritis, osteomyelitis with overlying abscess s/p I&D (05/16) and multiple saucerizations of R hipbones with antibiotic beads placement (05/20) with intra op cultures growing MSSA. Problem List 1. Right hip LOIS s/p [place] procedure c/b septic arthritis, osteomyelitis of femur with overlying abscess - s/p I&D on 05/16 with drainage of 10cc bloody purulent fluid - She went to the OR on 05/20/2023; surgeon: Dr. Song Schneider for the following procedures; 1. Saucerization of the right proximal femur with proximal femur resection 2. Saucerization right acetabulum posterior column 3. Saucerization of right anterior column and area, separate incision 4. Saucerization of right femoral shaft 5. Creation incision deep antibiotic beads right hip -Per OR note; there was purulent fluid surrounding the femur, resection of 8 cm segment of retainedproximal femur with moth-eaten appearance consistent with osteomyelitis, significant destruction ofthe acetabulum medially consistent with osteomyelitis. 1 g of vancomycin and 1.2 g of tobramycin was placed in the ASIS incision and PSIS incision area was irrigated with sterile saline and a strand o f 30 7 PM MD beads with 2.2 g of tobramycin and 2 g of vancomycin on a #1 Prolene was placed in thedeep tissue. - Intra op cultures from anaerobic bottles (05/20); MSSA and R hip aspiration cultures; MSSA (05/16) - MRSA swab positive on 05/17 - WBC 8.8 , Tmax 36.8 C , (05/14) ESR > 130 and CRP 17.3 - Currently on cefezolin 2g IV Q8H She went to the OR today, Surgeon; Dr. Song Schneider (05/27/23) for following procedure below; 1. Saucerization right proximal femur with proximal femur resection 2. Saucerization right acetabulum and posterior column 3. Saucerization right femoral shaft 4. Creation and insertion deep antibiotic beads right hip 5. Creation and insertion intramedullary antibiotic beads right femur 6. Complex primary closure 16cm Per OR note: No purulence seen with overall clean wound. 10ccs of Genex beads with 1g of vancomycinand 80mg of gentamicin was placed into the intramedullary canal of the proximal femur and deep intothe acetabulum. Also 1.2g of tobramycin powder was added in the deep tissues. A 19 Gigi drain was placed in the deep tissues and 10 Fr hemovac in the superficial tissues. 2. Hx of L LOIS - s/p revision about 1 year ago -On suppressive therapy, however not taking for last few months since she has ran out RECOMMENDATIONS: Discussed with Dr. Schneider who is seeing pt today as well 1. Discontinue cefazolin 2 grams IV q 8 hours e-prescribed cefadroxil 500 mg PO BID for suppression (for left hip infection) 2. PICC pulled in clinic without issues verbal care instructions given to pt 3. LABS: CBC/d, BMP; ESR; CRP; handed to pt for immed and q 2 weeks 4. F/U coordinated with Dr. Schneider's team 5. Request call should any concerning ID symptom or question arises; pt verbalized understanding ofthe plan She was asking about following with providers closer to home Electronic Signature on File Electronically Reviewed/Signed by: Rhianna Sawant PA-C Author Signature Dt/Tm:07/04/2023 02:27 PM Division of Infectious Disease and Epidemiology [facility] * CAS Carson, Marina: PERFORM Event Display: ID Ortho Outpt Note Authored Date: [id number] Orders faxed to [facility] Infusion Room Electronic Signature on File Electronically Reviewed/Signed by: Marina Carson Author Signature Dt/Tm:07/04/2023 02:36 PM Electronically Reviewed/Signed by: Rhianna Sawant PA-C Cosigner Signature Dt/Tm: 07/04/2023 02:54 PM Division of Infectious Disease and Epidemiology Patient Care team information Care Team Personnel Name: Nakul Kirby Christine A Position: Pharmacist Schedule II Member Role: Pharmacy - Lifetime Name: Nakul Cabrera Ann Position: Pharmacist Schedule II Member Role: Pharmacy - Lifetime Name: MD Gordon, Jf [place] Position: Physician - Pathologist Member Role: Lifetime Relationship Address: Address: [facility] [address] [place] [address] [place] Name: MD Arian, Cyndy Saba Position: Referring Member Role: Primary Care Provider Address: Address: [facility] [facility] [place] [id number] [place] Name: Asa Galindo Position: HIS Supervisor_P Member Role: HIS Lifetime Care Team Related Persons Name: BILLY BARAKAT Address: [address] [facility] [id number] Name: KORIN HAMILTON
--- OUTSIDE RECORDS SUMMARY | 2023-07-09 01:59 | External Medical Summary | Continuity of Care Document ---
Author Name Unknown Organization [facility] [address] Address [address] [facility] [address] [place] [id number] Care Team Providers Care Stone Banker Name Role Phone Cyndy Don Wandy Primary Care Physician [phone] Encounter [facility] [id number] Date(s): 07/04/23 - 07/04/23 [facility] [address] [facility] [place] [address], [address], [address] [place] [address] [phone] Encounter Diagnosis Osteomyelitis hip(Discharge Diagnosis) - 07/04/23 Discharge Disposition: Home or Self Care Attending Physician: MD Wyatt, Song Oshea Referring Physician: MD Schneider Kevin James Allergies, Adverse Reactions, Alerts Substance Reaction Severity Status Synvisc Active Bee sting 1 Active Pollen 2 Maple pollen Maple Active Allergy Not found in Search 3 Active mushrooms swollen tongue Severe Active 1Could have bee sting allergy? Possible toxic reaction? 2pt. stated does not know what reaction it causes 3[place] Assessment and Plan Extracted from: Title:Clinical Document Author:MD Bautista, No el Date:07/04/23 ORTHOPAEDICS OUTPATIENT NOTE Name: KYM HAMILTON Patient Number: [id number] : 1960 Date of Service: 07/04/2023 Chief Complaint: f/u R femur and acetabulum osteomyelitis s/p saucerization femoral shaft and acetabulum, I&D, abx bead placement Most Recent DOS: 05/27/23 HPI: Kym Hamilton is a 63-year-old female presenting today 6 weeks out from right femur saucerization ORIF, right acetabular catheterization, I&D, antibiotic to get placement on 05/27/2023 for right femur and acetabulum osteomyelitis. She reports that she is overall doing well and her pain is much improved from her admission and status post surgery. She unfortunately she has been unable to arrange transport for physical therapy. She has also not been able to make any interim appointments and has had to reschedule today from her original 2 to 4-week follow-up from admission. Reports that she still has sutures in place along the lateral aspect of the right thigh and the anterior aspect of the right hip. In wheelchair at baseline given extensive bilateral hip surgery, balance concerns, and limited baseline function. Baseline pain 5 out of 10. She reports she has been taking Oxy 10's that are now out as of yesterday. She would like a refill for alternative recommendations regarding her pain. She reports that for the hip pain is in the right hip. She denies any drainage. She denies any numbness or tingling to the right back or right lower extremity. She reports that she has been taking Eliquis twice daily as prescribed prior to this admission for the hip, as well as her antibiotics given during this admission. Unfortunately, due to transport issues again, she has been unable to have the labs requested by orthopedics infectious disease since her discharge. Orthopedics ID is scheduled to see her in conjunction with our visit today. Current Home Meds: (Last Updated 07/04 12:52) DULoxetine (Cymbalta 30 mg oral delayed release capsule) 30 mg PO Daily acetaminophen (acetaminophen 500 mg oral tablet) 1,000 mg PO q8h apixaban (Eliquis 5 mg oral tablet) 5 mg PO bid atorvastatin busPIRone (BuSpar 10 mg oral tablet) 1 tab PO tid ceFAZolin (ceFAZolin 2 g/50 bD-gdj-bzveybd dextrose intravenous solution) 2,000 mg IV q8h [...] pain Cervicalgia Bipolar Arthritis HTN (hypertension) Depression Foot pain, left Knee pain, bilateral SOB (shortness of breath) Acid reflux Weight gain OBJECTIVE Physical Exam General:No acute distress. Patient sitting in power chair, awake and alert. Conversive and pleasant. HEENT:Normocephalic, mucous membranes moist Neck:Supple CV:Normotensive, nontachycardic Pulm:Normal WOB with symmetric chest expansion bilaterally Abd:Nondistended Extremity: Spontaneously moving all extremities. RLE: Left Lower Extremity No deformity, swelling, ecchymosis, or other signs of trauma in the left lower extremity. Incisions c/d/i, sutures still in place with some grown over by dermis. No tenderness to palpation. Painless range of motion of ankle, knee, and hip. SILT in bay/saph/tib/dp/sp nerve distributions. Motor- fires hf/quad/ham/gsc/ta/ehl/fhl. Compartments soft. DP/PT pulses 2+, BCR in toes. Neuro: Appropriate mood and affect. AAO X 3. no focal/lateralizing deficits. Skin: Warm and well perfused 30 Day Labs: 06/07/23 0508 MPV 8.6 L MCV 78.3 L MCHC 31.7 L RBC 2.90 L Plts 492 H MCH 24.8 L Hct 22.7 L WBC 5.82 RDW 22.6 H Hgb 7.2 L 06/06/23 0825 MCHC 31.7 L Hgb 7.7 L Plts 568 H MCV 77.1 L RBC 3.15 L WBC 6.15 RDW 22.6 H MCH 24.4 L Hct 24.3 L MPV 8.8 L ASSESSMENT: Patient is a 63-year-old female presenting today 6 weeks status post right femoral shaft and right acetabulum saucerization, I&D, and antibiotic placement for R femur and acetabulum osteomyelitis. Endorses improvement today, requires further PO antibiotic treatment per Ortho ID recommendations. Patient requires PT and will need more consistent transport for visits and laboratory orders. PLAN: 1 ) Sutures removed today. Patient will require physical therapy for further exercises and evaluation function. 2 ) Antibiotic recommendations per orthopedics ID, that also saw him during his visit today. PICC line removed today in clinic, started on p.o. antibiotics further recommendations starting today. 3 ) Prescription sent for 30 tabs of oxycodone 5 mg for her continued pain. We discussed that she should see her PCP or set up with a pain management advisor in [place] if she continues to have issues with pain, especially given her previous status as a pain clinic patient when she lived in [place]. 4 ) Follow-up in 6 weeks with XR right hip (AP lateral) and AP view pelvis. I have personally seen and examined this patient. I discussed treatment options and developed the plan of care. I have reviewed the above note and havemade changes as necessary. Pt noncompliant with abx regimen. PICC line pulled today due to noncompliance with care. Switch to PO antibiotics. Pt requests follow up with provider closer to home. We are unable to recommend a specific provider for her and recommend close follow up with our team in the management of her complicated infection. Sutures removed, incision clean and dry. Song Schneidre MD DPT Orthopaedic Trauma [facility] 07/05/2023 11:39:28 Medications acetaminophen 500 mg oral tablet Start: [...] bid, Disp# 60 cap, Refills: 5, Pharmacy: [id number] Start Date: 07/04/23 Stop [...] 0, PRN: as needed for pain, Pharmacy: [id number] Start Date: 07/04/23 Status: [...] Start Date: 06/07/23 Status: Ordered Mental Status 07/04/23 Barriers to Learning one year None evide nt Mandatory Health Literacy Documentation Yes Health Literacy Communication Barriers N ever Primary Language Cambodian Problem List Condition Confirmation Course Effective Dates [...] Effective Dates Health Status Clinical Service Informant Osteomyelitis hip Discharge Diagnosis 07/04/23 Procedures Procedure Date Related Diagnosis Body Site [...] Safety Implantable Status Assigning Authority Unknown Unknown [id number] Unknown 12/28/25 Unknown Unknown Active Unknown Procedure Provider Procedure Date Device Type Site Unknown Unknown 05/20/23 Unknown Unknown Device Identifier Serial Number Lot or Batch Number Manufacturing Date Expiration Date Distinct Identification Code MRI Safety Implantable Status Assigning Authority Unknown Unknown [id number] Unknown 04/30/24 Unknown Unknown Active Unk nown [...] Unknown Unknown Unknown Unknown Active Unkn own Ortho Outpt Note * MD Wyatt, Song Oshea: MODIFY MD Schneider Kevin James: MODIFY, MODIFY Event Display: Ortho Outpt Note Authored Date: [id number] ORTHOPAEDICS OUTPATIENT NOTE Name: KYM HAMILTON Patient Number: [id number] : 1960 Date of Service: 07/04/2023 Chief Complaint: f/u R femur and acetabulum osteomyelitis s/p saucerization femoral shaft and acetabulum, I&D, abx bead placement Most Recent DOS: 05/27/23 HPI: Kym Hamilton is a 63-year-old female presenting today 6 weeks out from right femur saucerization ORIF, right acetabular catheterization, I&D, antibiotic to get placement on 05/27/2023 for right femur and acetabulum osteomyelitis. She reports that she is overall doing well and her pain is much improved from her admission and status post surgery. She unfortunately she has been unable to arrange transport for physical therapy. She has also not been able to make any interim appointments and has had to reschedule today from her original 2 to 4- week follow-up from admission. Reports that she still has sutures in place along the lateral aspect of the right thigh and the anterior aspect of theright hip. In wheelchair at baseline given extensive bilateral hip surgery, balance concerns, and limited baseline function. Baseline pain 5 out of 10. She reports she has been taking Oxy 10's that are now out as of yesterday. She would like a refill for alternative recommendations regarding her pain. She reports that for the hip pain is in the right hip. She denies any drainage. She denies any numbness or tingling to the right back or right lower extremity. She reports that she has been taking Eliquis twice daily as prescribed prior to this admission for the hip, as well as her antibiotics given duringthis admission. Unfortunately, due to transport issues again, she has been unable to have the labs requested by orthopedics infectious disease since her discharge. Orthopedics ID is scheduled to see her in conjunction with our visit today. Current Home Meds: (Last Updated 07/04 12:52) DULoxetine (Cymbalta 30 mg oral delayed release capsule) 30 mg PO Daily acetaminophen (acetaminophen 500 mg oral tablet) 1,000 mg PO q8h apixaban (Eliquis 5 mg oral tablet) 5 mg PO bid atorvastatin busPIRone (BuSpar 10 mg oral tablet) 1 tab PO tid ceFAZolin (ceFAZolin 2 g/50 tZ-dns-znzinsm dextrose intravenous solution) 2,000 mg IV q8h [...] pain Cervicalgia Bipolar Arthritis HTN (hypertension) Depression Foot pain, left Knee pain, bilateral SOB (shortness of breath) Acid reflux Weight gain OBJECTIVE Physical Exam General:No acute distress. Patient sitting in power chair, awake and alert. Conversive and pleasant. HEENT:Normocephalic, mucous membranes moist Neck:Supple CV:Normotensive, nontachycardic Pulm:Normal WOB with symmetric chest expansion bilaterally Abd:Nondistended Extremity: Spontaneously moving all extremities. RLE: Left Lower Extremity No deformity, swelling, ecchymosis, or other signs of trauma in the left lower extremity. Incisionsc/d/i, sutures still in place with some grown over by dermis. No tenderness to palpation. Painless range of motion of ankle, knee, and hip. SILT in bay/saph/tib/dp/sp nerve distributions. Motor- fires hf/quad/ham/gsc/ta/ehl/fhl. Compartments soft. DP/PT pulses 2+, BCR in toes. Neuro: Appropriate mood and affect. AAO X 3. no focal/lateralizing deficits. Skin: Warm and well perfused 30 Day Labs: 06/07/23 0508 MPV 8.6 L MCV 78.3 L MCHC 31.7 L RBC 2.90 L Plts 492 H MCH 24.8 L Hct 22.7 L WBC 5.82 RDW 22.6 H Hgb 7.2 L 06/06/23 0825 MCHC 31.7 L Hgb 7.7 L Plts 568 H MCV 77.1 L RBC 3.15 L WBC 6.15 RDW 22.6 H MCH 24.4 L Hct 24.3 L MPV 8.8 L ASSESSMENT: Patient is a 63-year-old female presenting today 6 weeks status post right femoral shaft and right acetabulum saucerization, I&D, and antibiotic placement for R femur and acetabulum osteomyelitis. Endorses improvement today, requires further PO antibiotic treatment per Ortho ID recommendations.Patient requires PT and will need more consistent transport for visits and laboratory orders. PLAN: 1 ) Sutures removed today. Patient will require physical therapy for further exercises and evaluation function. 2 ) Antibiotic recommendations per orthopedics ID, that also saw him during his visit today. PICC line removed today in clinic, started on p.o. antibiotics further recommendations starting today. 3 ) Prescription sent for 30 tabs of oxycodone 5 mg for her continued pain. We discussed that she should see her PCP or set up with a pain management advisor in [place] if she continues to have issues with pain, especially given her previous status as a pain clinic patient when she lived in [place]. 4 ) Follow-up in 6 weeks with XR right hip (AP lateral) and AP view pelvis. I have personally seen and examined this patient. I discussed treatment options and developed the plan of care. I have reviewed the above note and havemade changes as necessary. Pt noncompliant with abx regimen. PICC line pulled today due to noncompliance with care. Switch to PO antibiotics. Pt requests follow up with provider closer to home. We are unable to recommend a specific provider for her and recommend close follow up with our team in the management of her complicated infection. Sutures removed, incision clean and dry. Song Schneider MD DPT Orthopaedic Trauma [facility] 07/05/2023 11:39:28 Electronic Signature on File Electronically Reviewed/Signed by: Chalo Baum MD Author Signature Dt/Tm:07/04/2023 02:13 PM Resident Division of Orthopaedics Electronically Reviewed/Signed by: Song Schneider MD Cosigner Signature Dt/Tm: 07/05/2023 11:40AM Division of Orthopaedics [place] Patient Care team information Care Team Personnel Name: Nakul Kirby Christine A Position: Pharmacist Schedule II Member Role: Pharmacy - Lifetime Name: Nakul Cabrera Ann Position: Pharmacist Schedule II Member Role: Pharmacy - Lifetime Name: MD Gordon, Jf [place] Position: Physician - Pathologist Member Role: Lifetime Relationship Address: Address: [facility] [address] [place] [address] Name: MD Arian, Cyndy Saba Position: Referring Member Role: Primary Care Provider Address: Address: [facility] [address] Name: Asa Galindo Position: HIS Supervisor_P Member Role: HIS Lifetime Care Team Related Persons Name: BILLY BARAKAT Address: [address] [phone] Name: KORIN HAMILTON
--- NOTE | 2023-07-09 02:06 | Emergency Department Note ---
History of Present Illness General Chief complaint: Anxiety Stated complaint: POSSIBLE ANXIETY ATTACK Time Seen by Provider: 07/09/23 01:11 History of Present Illness This is a 63-year-old female presenting to the emergency department for anxiety/panic attack. Patient has an extensive history of mental health disease and is well-known to the ER due to frequency of visits. She is completing a course of IV Ancef for hip infection and chronic pain in the right hip. She started Cymbalta 3 to 4 days ago and states that her symptoms began after taking her dose this evening. The patient feels like she is unable to control her body. She feels like she is shaking uncontrollably. She rates her discomfort a 10/10. Home Medications Medication Instructions Recorded Confirmed Type acetaminophen 500 mg tablet 1,000 mg PO Q8 Pain 10/11/22 06/26/23 History (Tylenol Extra Strength) bprggbgo-kva-zcxzh acid 0.4 1 tab PO QAM 10/11/22 06/26/23 History mg-lycopene 300 mcg-lutein 250 mcg tablet (Centrum Silver) omeprazole 20 mg tablet,delayed 20 mg PO DAILY 10/11/22 06/26/23 History release polyethylene glycol 3350 17 gram 17 g PO BID PRN Constipation 10/11/22 06/26/23 History oral powder packet (Miralax) buspirone 10 mg tablet 10 mg PO TID #270 tabs 10/24/22 06/26/23 Rx digoxin 125 mcg (0.125 mg) tablet 125 mcg PO QPM #90 tabs 10/24/22 06/26/23 Rx ropinirole 0.25 mg tablet 0.25 mg PO HS #90 tabs 11/22/22 06/26/23 Rx doxepin 100 mg capsule 100 mg PO HS 01/23/23 06/26/23 History cyclobenzaprine 10 mg tablet 10 mg PO TID PRN muscle spasm #30 02/27/23 06/26/23 Rx tabs levothyroxine 75 mcg tablet 75 mcg PO DAILY #90 tabs 02/27/23 06/26/23 Rx cyanocobalamin (vitamin B-12) 1,000 mcg PO QAM 04/01/23 06/26/23 History 1,000 mcg capsule Cefazolin Sodium 2 g IV TID 06/19/23 06/26/23 History apixaban 5 mg tablet (Eliquis) 5 mg PO BID 06/19/23 06/26/23 History ascorbic acid (vitamin C) 500 mg 500 mg PO DAILY 06/19/23 06/26/23 History tablet (Vitamin C) cholecalciferol (vitamin D3) 125 125 mcg PO DAILY 06/19/23 06/26/23 History mcg (5,000 unit) tablet (Vitamin D3) furosemide 20 mg tablet (Lasix) 20 mg PO QAM PRN edema 06/19/23 06/26/23 History guaifenesin 600 mg tablet, 600 mg PO Q12H 06/19/23 06/26/23 History extended release 12 hr (Mucinex) melatonin 10 mg tablet 20 mg PO HS 06/19/23 06/26/23 History metoprolol succinate 50 mg 50 mg PO BID 06/19/23 06/26/23 History tablet,extended release 24 hr sennosides 8.6 mg-docusate sodium 2 tab-cap PO BID 06/19/23 06/26/23 History 50 mg tablet (Senna Plus) zinc 50 mg tablet 50 mg PO DAILY 06/19/23 06/26/23 History duloxetine 30 mg capsule,delayed 30 mg PO DAILY #30 caps 06/21/23 06/26/23 Rx release ketoconazole 2 % topical cream 1 applic EXT TID PRN rash under 06/21/23 06/26/23 Rx skin folds #15 grams oxycodone 10 mg tablet 10 mg PO Q4H PRN .severe pain #30 06/21/23 06/26/23 Rx tabs Allergies Allergy/AdvReac Type Severity Reaction Status Date / Time hylan G-F 20 Allergy Severe CAN'T Verified 06/19/23 20:27 REMEMBER mushroom Allergy Intermediate RASH Verified 06/19/23 20:27 Past Med/Surg History Medical History (Updated 07/09/23 @ 21:22 by Dayo Bartlett PA-C) Atrial fibrillation with RVR Atrial fibrillation, chronic Hypothyroidism Scabies Poor historian History of COVID-19 July 2020 treated at a hospital in [place] for several days. Weight loss, unintentional History of gastric polyp Hypothyroidism Hx of thalassemia no manager general Lyme disease hx On anticoagulant therapy Major depression Anxiety Sleep apnea hx -- since weightloss and gastric bypass surgery no problems with PORTILLO. Atrial fibrillation follows with [facility] Cardiology (Donna Osborne PA-C) dx a year ago. no cardioversions in the past. Acute hyponatremia Pneumonia hx - "years ago" Anemia Cellulitis hx Iron deficiency anemia Migraines RLS (restless legs syndrome) GERD (gastroesophageal reflux disease) occasional Chronic heart failure with preserved ejection fraction (HFpEF) Constipation PE (pulmonary embolism) 10+ years ago. unsure of cause. Cervical radiculopathy Thalassemia (Unknown) Arthroplasty of knee (Unknown) "bilateral " Surgical History History of section S/P revision of total hip History of bilateral knee arthroplasty History of esophagogastroduodenoscopy (EGD) History of colonoscopy History of cholecystectomy Status post hip surgery R HIP REPLACEMENT REMOVED DUE TO INFX History of bilateral hip replacements H/O gastric bypass Family History Father Colorectal cancer Mother Diabetes Other FHx: throat cancer No family history of adverse response to anesthesia Denies family history of Ovarian cancer Prostate cancer Myocardial infarction Breast cancer Social History Smoking Status: Former smoker Tobacco Type: Cigarettes Second Hand Exposure: No; Do You Dip or Chew Tobacco: No; Hx Alcohol Use: Yes Alcohol type: wine Hx Substance Use: Yes Substance Use Type Other:: medical marijuana Preferred Language: Tajik Communication Ability: Impaired Communication Ability Comment: often unable to communicate effectively Visual Impairment: Partially Limited Melter Helper Required: No Beliefs That Will Affect Care: None marital status: Current Living Situation: Alone Current Living Situation Comment: lives alone in apartment, daughter checks on her How many Children do You have: 3 Other Information That Helps Us Care for You: No Feels Safe at Home: Yes Safety Concerns: Feels Safe At This Time Assistive Devices: Walker and Wheelchair Review of Systems A total of 10 systems reviewed and were otherwise negative Physical Exam Vital Signs Vital Signs - 24 hr 07/09/23 01:28 07/09/23 02:36 07/09/23 02:42 Temperature 36.8 C Temperature Source Oral Pulse Rate 185 H Pulse Rate [Apical] 172 H Pulse Rhythm [Apical] Respiratory Rate 35 H 29 H Respiratory Effort / Characteristics Respiratory Depth Respiratory Pattern Blood Pressure Blood Pressure [Right Arm] 125/95 Blood Pressure Mean Blood Pressure Mean [Right Arm] 105 Blood Pressure Position [Right Arm] Pulse Oximetry 95 98 Oxygen Delivery Method Room Air Room Air Sepsis Recent Fever Within 48 Hours No Sepsis New/Unexplained Change in Mental Status No Sepsis Action Taken by Nursing No Action Required 07/09/23 03:20 07/09/23 03:20 07/09/23 03:35 Temperature Temperature Source Pulse Rate 165 H 180 H 158 H Pulse Rate [Apical] Pulse Rhythm [Apical] Respiratory Rate 22 Respiratory Effort / Characteristics Respiratory Depth Respiratory Pattern Blood Pressure 161/91 H 161/91 H Blood Pressure [Right Arm] Blood Pressure Mean 114 Blood Pressure Mean [Right Arm] Blood Pressure Position [Right Arm] Pulse Oximetry 98 Oxygen Delivery Method Sepsis Recent Fever Within 48 Hours Sepsis New/Unexplained Change in Mental Status Sepsis Action Taken by Nursing 07/09/23 03:38 07/09/23 03:53 07/09/23 04:00 Temperature Temperature Source Pulse Rate 152 H 149 H Pulse Rate [Apical] 147 H Pulse Rhythm [Apical] Irregular Respiratory Rate 20 Respiratory Effort / Characteristics Non-Labored Spontaneous Respiratory Depth Normal Respiratory Pattern Regular Blood Pressure 145/103 H 118/82 Blood Pressure [Right Arm] 106/79 Blood Pressure Mean Blood Pressure Mean [Right Arm] 88 Blood Pressure Position [Right Arm] Lying Pulse Oximetry 96 Oxygen Delivery Method Room Air Sepsis Recent Fever Within 48 Hours Sepsis New/Unexplained Change in Mental Status Sepsis Action Taken by Nursing VITALS: Vitals are noted on the nurse's note and reviewed by myself. Vital signs stable. GENERAL: Female who is histrionic on arrival. She is minimally cooperative. She is yelling on arrival. She is shaking, however this seems controllable when she is distracted. HEAD: Normocephalic atraumatic. NECK: Supple without nuchal rigidity. No lymphadenopathy. No thyromegaly. Cervical spine is nontender. HEART: Tachycardic rate with regular rhythm LUNGS: Clear to auscultation bilaterally without wheezes, rales or rhonchi. No retractions or accessory muscle use. ABDOMEN: Positive normal bowel sounds x 4. Soft, nontender, without masses or organomegaly. No guarding or rebound tenderness. MUSCULOSKELETAL: No muscle atrophy, erythema, or edema noted. Full range of motion in all extremities. NEURO: Patient was alert and oriented to person place and time. CN II through XII grossly intact. Course Administered Medications Apixaban (Apixaban 5 Mg Tablet) 5 mg PO BID [facility] Stop: 08/08/23 08:59 Last Admin: 07/09/23 20:14 Dose: 5 mg Documented By: Admin: 07/09/23 13:11 Dose: Not Given Documented By: PAVAN Ascorbic Acid (Ascorbic Acid 500 Mg Tab) 500 mg PO DAILY [facility] Stop: 08/08/23 08:59 Last Admin: 07/09/23 13:11 Dose: Not Given Documented By: PAVAN Buspirone HCl (Buspirone 5 Mg Tab) 10 mg PO TID [facility] Stop: 08/08/23 08:59 Last Admin: 07/09/23 20:17 Dose: 10 mg Documented By: Admin: 07/09/23 14:22 Dose: Not Given Documented By: Admin: 07/09/23 13:11 Dose: Not Given Documented By: PAVAN Cyanocobalamin (Cyanocobalamin (B-12) 500 Mcg Tablet) 1,000 mcg PO QAM [facility] Stop: 08/08/23 08:59 Last Admin: 07/09/23 13:12 Dose: Not Given Documented By: PAVAN Cyclobenzaprine HCl (Cyclobenzaprine Hcl 10 Mg Tab) 10 mg PO TID PRN PRN Reason: muscle spasm Stop: 08/08/23 06:05 Last Admin: 07/09/23 20:11 Dose: 10 mg Documented By: Admin: 07/09/23 06:38 Dose: 10 mg Documented By: JEFFREY Digoxin (Digoxin 0.125 Mg Tab) 0.125 mg PO QPM [facility] Stop: 08/08/23 20:59 Last Admin: 07/09/23 20:18 Dose: 0.125 mg Documented By: JEFFREY Doxepin HCl (Doxepin Hcl 50 Mg Capsule) 100 mg PO HS [facility] Stop: 08/08/23 20:59 Last Admin: 07/09/23 20:16 Dose: 100 mg Documented By: JEFFREY Duloxetine HCl (Duloxetine Hcl 30 Mg Cap) 30 mg PO DAILY [facility] Stop: 08/08/23 08:59 Last Admin: 07/09/23 13:12 Dose: Not Given Documented By: PAVAN Guaifenesin (Guaifenesin 600 Mg Tabcr) 600 mg PO Q12H [facility] Stop: 08/08/23 08:59 Last Admin: 07/09/23 20:12 Dose: 600 mg Documented By: Admin: 07/09/23 13:12 Dose: Not Given Documented By: PAVAN Pantoprazole Sodium 40 mg/ (Syringe) 10 mls @ 5 mls/min IV DAILY@1100 [facility] Stop: 08/08/23 10:59 Last Admin: 07/09/23 12:17 Dose: 5 mls/min Documented By: PAVAN Ceftriaxone Sodium 2,000 mg/ (Dextrose) 50 mls @ 100 mls/hr IV Q24H [facility]; Protocol Stop: 07/11/23 10:59 Last Infusion: 07/09/23 12:47 Dose: Infused Documented By: Admin: 07/09/23 12:17 Dose: 100 mls/hr Documented By: PAVAN Levothyroxine Sodium (Levothyroxine Sodium 75 Mcg Tablet) 75 mcg PO DAILYBB [facility] Stop: 08/08/23 06:29 Last Admin: 07/09/23 06:38 Dose: 75 mcg Documented By: JEFFREY Melatonin (Melatonin 3 Mg Tab) 9 mg PO HSZ PRN PRN Reason: Sleep Stop: 08/08/23 06:30 Last Admin: 07/09/23 20:11 Dose: 9 mg Documented By: JEFFREY Metoprolol Succinate (Metoprolol Succ 50mg Ext Rel Tab) 50 mg PO BID [facility] Stop: 08/08/23 20:59 Last Admin: 07/09/23 20:12 Dose: 50 mg Documented By: JEFFREY Multivitamins/Minerals (Cerovite Adv Formula Tab) 1 tab PO QAM [facility] Stop: 08/08/23 08:59 Last Admin: 07/09/23 13:12 Dose: Not Given Documented By: PAVAN Oxycodone HCl (Oxycodone Hcl Ir 5 Mg Tab (Immediate Release)) 5 mg PO Q6H PRN PRN Reason: .severe pain Stop: 07/23/23 06:05 Last Admin: 07/09/23 18:06 Dose: 5 mg Documented By: PAVAN Ropinirole HCl (Ropinirole Hcl 0.25 Mg Tablet) 0.25 mg PO HS [facility] Stop: 08/08/23 20:59 Last Admin: 07/09/23 20:16 Dose: 0.25 mg Documented By: JEFFREY Senna/Docusate Sodium (Docusate Sodium/Senna 50/8.6mg Tab) 2 tab PO BID [facility] Stop: 08/08/23 08:59 Last Admin: 07/09/23 20:13 Dose: Not Given Documented By: Admin: 07/09/23 13:12 Dose: Not Given Documented By: PAVAN Vitamin D (Cholecalciferol 5,000 Units 125 Mcg Tab) 5,000 units PO DAILY [facility] Stop: 08/08/23 08:59 Last Admin: 07/09/23 13:11 Dose: Not Given Documented By: PAVAN Zinc Sulfate (Zinc Sulfate 220 Mg Capsule) 220 mg PO DAILY [facility] Stop: 08/08/23 08:59 Last Admin: 07/09/23 13:12 Dose: Not Given Documented By: PAVAN Discontinued Medications Diphenhydramine HCl (Diphenhydramine 50 Mg/Ml Vial) 50 mg IV NOW STA Stop: 07/09/23 02:24 Last Admin: 07/09/23 02:28 Dose: 50 mg Documented By: MIKAYLA Droperidol (Droperidol 5 Mg/2 Ml Vial) 2.5 mg IM ONE STA Stop: 07/09/23 01:37 Last Admin: 07/09/23 01:38 Dose: 2.5 mg Documented By: AMOL Droperidol (Droperidol 5 Mg/2 Ml Vial) 2.5 mg IM ONE STA Stop: 07/09/23 02:09 Last Admin: 07/09/23 02:10 Dose: 2.5 mg Documented By: AMOL Sodium Chloride (Nss) 1,000 mls @ 999 mls/hr IV .Q1H1M [facility] Stop: 07/09/23 02:30 Last Infusion: 07/09/23 03:50 Dose: Infused Documented By: Admin: 07/09/23 02:40 Dose: 999 mls/hr Documented By: AMOL Sodium Chloride (Nss) 1,000 mls @ 999 mls/hr IV .Q1H1M [facility] Stop: 07/09/23 03:45 Last Infusion: 07/09/23 03:50 Dose: Infused Documented By: Admin: 07/09/23 02:41 Dose: 999 mls/hr Documented By: AMOL Magnesium Sulfate/Dextrose (Magnesium Sulfate / D5w) 1 gm in 100 mls @ 100 mls/hr IV NOW STA Stop: 07/09/23 04:15 Last Infusion: 07/09/23 04:22 Dose: Infused Documented By: Admin: 07/09/23 03:22 Dose: 100 mls/hr Documented By: EDITH Lorazepam 2 mg/ Syringe 2 mls @ 2 mls/min IV NOW STA Stop: 07/09/23 04:15 Last Admin: 07/09/23 04:21 Dose: 2 mls/min Documented By: BOB Magnesium Sulfate/Dextrose (Magnesium Sulfate / D5w) 1 gm in 100 mls @ 50 mls/hr IV ONE STA Stop: 07/09/23 06:06 Last Infusion: 07/09/23 06:49 Dose: Infused Documented By: Admin: 07/09/23 04:30 Dose: 50 mls/hr Documented By: BOB Cefazolin Sodium (Ancef 2000mg) 2,000 mg in 15 mls @ 3.75 mls/min IV Q8 [facility] Stop: 07/10/23 22:03 Last Admin: 07/09/23 07:43 Dose: 3.75 mls/min Documented By: PAVAN Lorazepam (Lorazepam 2 Mg/1 Ml Vial) 2 mg IM NOW STA Stop: 07/09/23 01:16 Last Admin: 07/09/23 01:27 Dose: 2 mg Documented By: SUNG Lorazepam (Lorazepam 1 Mg/1 Ml Syr Ed Inj Use) 2 mg IM ONE STA Stop: 07/09/23 01:53 Last Admin: 07/09/23 02:01 Dose: Not Given Documented By: AMOL Lorazepam (Lorazepam 1 Mg/1 Ml Syr Ed Inj Use) 2 mg IV ONE STA Stop: 07/09/23 01:57 Last Admin: 07/09/23 02:00 Dose: 2 mg Documented By: AMOL Metoprolol Succinate (Metoprolol Succ 50mg Ext Rel Tab) 50 mg PO BID [facility] Stop: 08/08/23 08:59 Last Admin: 07/09/23 10:33 Dose: Not Given Documented By: PAVAN Metoprolol Tartrate (Metoprolol Tartrate 1 Mg/Ml Vial) 5 mg IV NOW STA Stop: 07/09/23 03:17 Last Admin: 07/09/23 03:20 Dose: 5 mg Documented By: EDITH Metoprolol Tartrate (Metoprolol Tartrate 1 Mg/Ml Vial) 5 mg IV NOW STA Stop: 07/09/23 03:37 Last Admin: 07/09/23 03:38 Dose: 5 mg Documented By: BOB Metoprolol Tartrate (Metoprolol Tartrate 1 Mg/Ml Vial) 5 mg IV Q6 [facility] Stop: 07/09/23 20:00 Last Admin: 07/09/23 18:02 Dose: 5 mg Documented By: Admin: 07/09/23 12:17 Dose: 5 mg Documented By: PAVAN Olanzapine (Olanzapine 10 Mg/2.1 Ml Sdv) 2.5 mg IM NOW STA Stop: 07/09/23 05:07 Last Admin: 07/09/23 05:13 Dose: 2.5 mg Documented By: BOB Medical Decision Making Differential Diagnosis Differential diagnosis: Etiologies such as psychiatric disorder, infection, hypoglycemia, electrolyte abnormalities, cardiac sources, intracerebral event, toxicological process, neurologic disorder, as well as others were entertained. Laboratory Data 07/09/23 02:26 07/09/23 02:26 Lab Results 07/09/23 07/09/23 07/09/23 Range/Units 02:26 03:36 03:45 WBC 12.31 H (4.8-10.8) K/ul RBC 4.14 L (4.20-5.40) M/uL Hgb 8.9 L (12.0-16.0) g/dl Hct 27.8 L (37.0-47.0) % MCV 67.1 L (80.0-100.0) fL MCH 21.5 L (25.0-34.0) pg MCHC 32.0 (32.0-36.0) g/dL RDW Std Deviation 48.2 H (36.4-46.3) fL RDW Coeff of Fredrick 21.2 H (11.5-14.5) % Plt Count 423 H (130-400) K/uL MPV 9.0 L (9.4-12.4) fL Immature Gran % (Auto) 0.4 % Neut % (Auto) 73.7 % Lymph % (Auto) 16.1 % [place] % (Auto) 8.5 % Eos % (Auto) 1.0 % Baso % (Auto) 0.3 % Neut # (Auto) 9.07 H (1.40-6.50) K/uL Lymph # (Auto) 1.98 (1.20-3.40) K/uL [place] # (Auto) 1.05 H (0.11-0.59) K/uL Eos # (Auto) 0.12 (0.00-0.50) K/uL Baso # (Auto) 0.04 (0.00-0.20) K/uL Immature Gran # (Auto) 0.05 (0.01-0.20) K/uL Hypochromasia Present Anisocytosis Present Microcytosis Present Target Cells 1+ ESR 107 H (0-30) mm/hr Sodium 131 L (136-145) mmol/L Potassium 3.9 (3.5-5.1) mmol/L Chloride 95 L (98-107) mmol/L Carbon Dioxide 24 (21-32) mmol/L Anion Gap 12 H (3-11) BUN 12 (6-23) mg/dl Creatinine 0.77 (0.6-1.2) mg/dl Est Cr Clr Drug Dosing 85.1 ml/min Est GFR ( Amer) 96.6 ml/min Est GFR (Non-Af Amer) 83.3 ml/min BUN/Creatinine Ratio 15.6 (10-20) Glucose 123 H (70-99(Fasting)) mg/dl Lactate 2.7 H* (0.4-2.0) mmol/L Calcium 8.9 (8.6-10.3) mg/dl Magnesium 1.7 (1.7-2.4) mg/dl Total Bilirubin 0.9 (0.2-1.0) mg/dl AST 13 (13-39) U/L ALT 3 L (7-52) U/L Alkaline Phosphatase 204 H (34-104) U/L Ammonia Troponin I High Sens 5.0 5.7 (0-14) pg/ml C-Reactive Protein 4.99 H (0-0.5) mg/dl Total Protein 8.2 (6.0-8.3) gm/dl Albumin 3.7 (3.4-5.0) gm/dl Globulin 4.5 H (2.5-4.0) gm/dl Albumin/Globulin Ratio 0.8 L (0.9-2) TSH 2.749 (0.300-4.500) uIu/ml Urine Color Yellow Urine Appearance Cloudy A (Clear) Urine pH 6.0 (4.5-7.5) Ur Specific [place] 1.012 (1.000-1.030) Urine Protein Trace H (Negative) Urine Glucose (UA) Negative (Negative) Urine Ketones Negative (Negative) Urine Blood 1+ H (Negative) Urine Nitrite Negative (Negative) Urine Bilirubin Negative (Negative) Urine Urobilinogen Positive H (Negative) Ur Leukocyte Esterase Trace H (Negative) Urine WBC (Auto) 5-10 H (0-5) /hpf Urine RBC (Auto) 10-30 H (0-4) /hpf U Hyaline Cast (Auto) 1-5 (0-5) /lpf U Epithel Cells (Auto) >30 H (0-5) /lpf Urine Bacteria (Auto) 2+ H (Negative) Ur Renal Epithelial Cell Not Reportable Urine Opiates Screen Neg (Neg) Ur Methadone, Qual Neg (Neg) Urine Barbiturates Neg (Neg) Ur Phencyclidine (PCP) Neg (Neg) U Amphetamin/Meth Scrn Neg (Neg) MDMA (Ecstasy) Screen Neg (Neg) U Benzodiazepines Scrn Neg (Neg) Ur Cocaine Metabolite Neg (Neg) U Marijuana (THC) Screen Pos H (Neg) Ethyl Alcohol mg/dL < 10.0 (<10.0) mg/dl 07/09/23 07/09/23 Range/Units 04:02 04:09 WBC (4.8-10.8) K/ul RBC (4.20-5.40) M/uL Hgb (12.0-16.0) g/dl Hct (37.0-47.0) % MCV (80.0-100.0) fL MCH (25.0-34.0) pg MCHC (32.0-36.0) g/dL RDW Std Deviation (36.4-46.3) fL RDW Coeff of Fredrick (11.5-14.5) % Plt Count (130-400) K/uL MPV (9.4-12.4) fL Immature Gran % (Auto) % Neut % (Auto) % Lymph % (Auto) % [place] % (Auto) % Eos % (Auto) % Baso % (Auto) % Neut # (Auto) (1.40-6.50) K/uL Lymph # (Auto) (1.20-3.40) K/uL [place] # (Auto) (0.11-0.59) K/uL Eos # (Auto) (0.00-0.50) K/uL Baso # (Auto) (0.00-0.20) K/uL Immature Gran # (Auto) (0.01-0.20) K/uL Hypochromasia Anisocytosis Microcytosis Target Cells ESR (0-30) mm/hr Sodium (136-145) mmol/L Potassium (3.5-5.1) mmol/L Chloride (98-107) mmol/L Carbon Dioxide (21-32) mmol/L Anion Gap (3-11) BUN (6-23) mg/dl Creatinine (0.6-1.2) mg/dl Est Cr Clr Drug Dosing ml/min Est GFR ( Amer) ml/min Est GFR (Non-Af Amer) ml/min BUN/Creatinine Ratio (10-20) Glucose (70-99(Fasting)) mg/dl Lactate 2.1 H* (0.4-2.0) mmol/L Calcium (8.6-10.3) mg/dl Magnesium (1.7-2.4) mg/dl Total Bilirubin (0.2-1.0) mg/dl AST (13-39) U/L ALT (7-52) U/L Alkaline Phosphatase (34-104) U/L Ammonia TNP Troponin I High Sens (0-14) pg/ml C-Reactive Protein (0-0.5) mg/dl Total Protein (6.0-8.3) gm/dl Albumin (3.4-5.0) gm/dl Globulin (2.5-4.0) gm/dl Albumin/Globulin Ratio (0.9-2) TSH (0.300-4.500) uIu/ml Urine Color Urine Appearance (Clear) Urine pH (4.5-7.5) Ur Specific [place] (1.000-1.030) Urine Protein (Negative) Urine Glucose (UA) (Negative) Urine Ketones (Negative) Urine Blood (Negative) Urine Nitrite (Negative) Urine Bilirubin (Negative) Urine Urobilinogen (Negative) Ur Leukocyte Esterase (Negative) Urine WBC (Auto) (0-5) /hpf Urine RBC (Auto) (0-4) /hpf U Hyaline Cast (Auto) (0-5) /lpf U Epithel Cells (Auto) (0-5) /lpf Urine Bacteria (Auto) (Negative) Ur Renal Epithelial Cell Urine Opiates Screen (Neg) Ur Methadone, Qual (Neg) Urine Barbiturates (Neg) Ur Phencyclidine (PCP) (Neg) U Amphetamin/Meth Scrn (Neg) MDMA (Ecstasy) Screen (Neg) U Benzodiazepines Scrn (Neg) Ur Cocaine Metabolite (Neg) U Marijuana (THC) Screen (Neg) Ethyl Alcohol mg/dL (<10.0) mg/dl ECG Data Attestation: I personally reviewed and interpreted this ECG as follows: Indication: + palpitations Additional Comments: Atrial flutter with variable A-V block @173 bpm Rightward axis Diffuse Nonspecific ST and T wave abnormality Abnormal ECG When compared with ECG of 14-APR-2023 11:22, Atrial flutter has replaced Atrial fibrillation Vent. rate has increased BY 69 BPM MDM Narrative Physical exam and history were performed. Nursing notes, EMR, and Medication List were personally reviewed. No social concerns were identified as barriers to patients care. Patient appears to have atypical symptoms bringing her to the ER. She is very histrionic on arrival, screaming, and shaking her arms and legs. She is rocking back and forth in the bed and rubbing her legs. The patient will answer most questions, but not all. Vital signs were initially difficult to obtain as the patient would remove her blood pressure cuff complaining it was too tight, and would not cooperate with temperature. She would not cooperate for EKG. Patient was given multiple doses of IM Ativan and IM droperidol. After several doses we were able to get a working IV site, however the patient dislodged this and second site had to be obtained. Because of the patient's noncooperative status there was significant delay in her care. The case was discussed with my attending, Dr. Nicole, who also independently evaluated the patient. After several doses of medication we were able to get labs and perform EKG. EKG is concerning as she has a rate of 173, and this appears to be either A-fib or a flutter. We did attempt to reconcile the patient's meds with her at bedside, as she reportedly is on metoprolol and digoxin. The patient states that she took her medicine this evening, and is angry that we are questioning her on this. Patient was given IV hydration here in the ER as well as IV magnesium and IV Lopressor. This did slowly start to improve her tachycardia. Patient's blood work is as above and was reviewed. She does have a slightly elevated white count of 12. She is with some anemia, however this is chronic and essentially her baseline. She does not have significant electrolyte imbalance. Troponin x 2 is negative. Transaminases are not diagnostic. Urine could represent infection. Lactic is slightly elevated. Drug screen is positive for marijuana. Case was discussed with at length with hospitalist service and my attending. The patient appears very unwell. There are many barriers to this patient care. She is at risk for sepsis however with her current cardiac condition a full fluid bolus was performed at a slower than normal rate. Please see my attending and hospitalist notes for further patient course, plan, and disposition. The chart was completed utilizing [employer] Voice Recognition Software. Grammatical errors, random word insertions, pronoun errors, and incomplete sentences are an occasional consequence of this system due to software limitations, ambient noise, and hardware issues. Any formal questions or concerns about the content, text, or information contained within the body of this dictation should be directly addressed to the provider for clarification. . Impression & Plan Atrial fibrillation with RVR, Acute alteration in mental status Discharge Plan Visit Data Chief Complaint: Anxiety Stated Complaint: POSSIBLE ANXIETY ATTACK ED Provider: Clemente Nicole ED Midlevel Provider: Dayo Bartlett Discharge Problem: Atrial fibrillation with RVR, Acute alteration in mental status Patient Disposition: Admitted As Inpatient Discharge Instructions Interventions: ED Discharge Assessment Last Done: 07/09/23 05:33
[2023-07-09] MEDS ORDERED: diphenhydrAMINE 50 MG/ML VIAL IV STA (02:23)
[2023-07-09 02:42] LABS: Basophils # (auto) 0.04 K/uL (0.00-0.20); Basophils % (auto) 0.3 %; Eosinophils # (auto) 0.12 K/uL (0.00-0.50); Hematocrit (blood only) 27.8 % (37.0-47.0); Hemoglobin 8.9 g/dl (12.0-16.0); Immature Granulocytes # (auto) 0.05 K/uL (0.01-0.20); Immature Granulocytes % (auto) 0.4 %; Lymphocytes # (auto) 1.98 K/uL (1.20-3.40); Lymphocytes % (auto) 16.1 %; Mean Corpuscular Hemoglobin 21.5 pg (25.0-34.0); Mean Corpuscular Volume 67.1 fL (80.0-100.0); Monocytes # (auto) 1.05 K/uL (0.11-0.59); Monocytes % (auto) 8.5 %; Neutrophils # (auto) 9.07 K/uL (1.40-6.50); Neutrophils % (auto) 73.7 %; RDW Coefficient of Variation 21.2 % (11.5-14.5); RDW Standard Deviation 48.2 fL (36.4-46.3); Red Blood Count 4.14 M/uL (4.20-5.40); White Blood Count 12.31 K/ul (4.8-10.8)
[2023-07-09 02:56] LABS: BUN Creatinine Ratio 15.6 (10-20); Calcium 8.9 mg/dl (8.6-10.3); Creatinine Clr Calc Pharmacy 85.1 ml/min; Est GFR (African American) 96.6 ml/min; Est GFR (Non-African American) 83.3 ml/min; Potassium 3.9 mmol/L (3.5-5.1)
[2023-07-09 03:07] LABS: Anisocytosis Present; Hypochromasia Present; Microcytosis Present; Platelet Count 423 K/uL (130-400); Target Cells 1+
[2023-07-09 03:11] LABS: Thyroid Stimulating Hormone 2.749 uIu/ml (0.300-4.500)
[2023-07-09 03:12] LABS: Albumin Globulin Ratio 0.8 (0.9-2); Albumin Level 3.7 gm/dl (3.4-5.0); Bilirubin,Total 0.9 mg/dl (0.2-1.0); Globulin 4.5 gm/dl (2.5-4.0); Magnesium 1.7 mg/dl (1.7-2.4); Total Protein 8.2 gm/dl (6.0-8.3)
[2023-07-09] MEDS ORDERED: MAGNESIUM SULFATE / D5W 1 GM/100 ML BAG IV STA ×2 (03:16→04:07)
[2023-07-09] MEDS ORDERED: METOPROLOL TARTRATE 1 MG/ML VIAL IV STA ×2 (03:16→03:36)
[2023-07-09 03:57] LABS: Appearance Urine Cloudy (Clear); Bacteria Urine Automated 2+ (Negative); Bilirubin Urine Negative (Negative); Blood Urine 1+ (Negative); Color Urine Yellow; Epithelial Cell Urine Auto >30 /lpf (0-5); Glucose Urine UA Negative (Negative); Ketones Urine Negative (Negative); Leukocyte Esterase Urine Trace (Negative); Nitrite Urine Negative (Negative); Protein Urine Trace (Negative); Specific Gravity Urine 1.012 (1.000-1.030); Urobilinogen Urine Positive (Negative)
--- NOTE | 2023-07-09 04:00 | Emergency Department Note ---
ED Visit Note I saw the patient consultation with Dayo Bartlett PA-C. Patient was significant more complicated than initially triage. Patient initially presented for extreme anxiety was restless, agitated requiring multiple doses of anxiolytic/sedatives. In brief patient is a 63-year-old female with history of atrial fibrillation on metoprolol and digoxin as well as beta thalassemia, chronic hyponatremia, hypertension. 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 Patient denied any chest pain, shortness of breath, fever, chills, nausea, vomiting. Denied any dysuria or hematuria. At this time patient is still significantly agitated, feeling around the bed stating she needs help. Patient otherwise is not hypoxic or hypotensive. Patient initially had 2 L normal saline for tachycardia however patient does have CHF. Will stop this fluid, patient received less than 200 mL of this. Will try small doses of Lopressor due to significant tachycardia Patient given 2 doses of 5 mg Lopressor with some improvement with A-fib now in the 140s instead of 180s. Also given 2 g of magnesium. Patient more calm at this time after Lopressor, magnesium. Will admit for A-fib RVR, anxiety Critical Care Note: I have personally spent 45 minutes of critical care time in the direct management of this patient. This includes bedside care, interpretation of diagnostic studies, and testing, discussion with consultants, patient, and family members, and other required patient management activities. This 45 minutes is in excess of all separately billable procedures.
[2023-07-09] MEDS ORDERED: LORazepam 2 MG in SYRINGE 1 ML IV STA (04:14)
[2023-07-09 05:03] LABS: Amphetamines+Metham, Urine Neg (Neg); Barbiturates, Urine Neg (Neg); Benzodiazepine, Urine Neg (Neg); Cocaine, Urine Neg (Neg); MDMA (Ecstacy), Urine Neg (Neg); Marijuana, Urine Pos (Neg); Methadone, Urine Neg (Neg); Opiate, Urine Neg (Neg); Phencyclidine, Urine Neg (Neg)
[2023-07-09] MEDS ORDERED: OLANZapine 10 MG/2.1 ML SDV IM STA (05:06)
[2023-07-09] MEDS ORDERED: KETOCONAZOLE 2% CR 15 GM TUBE EXT PRN (06:06)
[2023-07-09] MEDS ORDERED: oxyCODONE HCL IR 5 MG TAB (IMMEDIATE RELEASE) PO PRN (06:06)
[2023-07-09] MEDS ORDERED: POLYETHYLENE (MIRALAX) 17 GM PACK PO PRN (06:06)
[2023-07-09] MEDS ORDERED: MELATONIN 3 MG TAB PO PRN (06:31)
[2023-07-09] MEDS: CYCLOBENZAPRINE HCL 10 MG TAB PO PRN ×2 (06:38→20:11)
[2023-07-09] MEDS: LEVOTHYROXINE SODIUM 75 MCG TABLET PO SCH (06:38)
--- NOTE | 2023-07-09 06:47 | History & Physical Report ---
Date of Service July 09, 2023 Assessment & Plan (1) Atrial fibrillation with RVR: Plan: 63 F with PMH HFpEF, anxiety, HTN, RLS, hypothyroidism, recently d/c on Ancef for osteomyelitis of right femur (through 07/10/2023) who presented with complaints of anxiety and found to have acute on chronic AF with RVR. Now s/p IV Ativan, IV Zyprexa, admitted to hospital for further rate control. AF + RVR -History of chronic A-fib on metoprolol and digoxin. In the setting of altered mental status, suspect this is driving atrial fibrillation, though cannot be sure at this time. -S/p IVF resuscitation, IV Ativan IV Lopressor 5 mg x 2 doses, HR 180---> 140s---> 100s -As of this note, rate in the 100s with spikes to 113. Will not attempt additional rate control at this time -Received IV Zyprexa 2.5 mg on admission for persistent agitation. * Admit to PCU * EKG as needed * Rate control: Digoxin load if hypotensive, metoprolol if normotensive * Home anticoagulation with Eliquis 5 mg twice daily * Continue home metoprolol, digoxin; consider increasing metoprolol to 75 mg twice daily from 50 mg twice daily * Titrate Mg >2, K+ >4 * AMS workup pending * Consider cardiology consult if rates remain refractory Right femur osteomyelitis * Continue Ancef 3 times daily IV through 07/09/2023 History of thalassemia * Continue home Eliquis 5 mg twice daily AMS -Unclear etiology though given elevated WBC, lactate, UA, urinary tract infection seems likeliest culprit. However, patient has been on 3 times daily IV Ancef for weeks (osteomyelitis of right femur) so this seems less likely. -This would leave drugs patient started duloxetine days ago. -Urine tox screen positive for marijuanarest of screen otherwise negative. -Ammonia level normal. Low suspicion for metabolic encephalopathy. * Continue Ancef at this time (no obvious source, indication for expanding antibiotic coverage) RLS * Ropinirole * As needed Flexeril for spasms, cramps JACEY * Continue Cymbalta, BuSpar, doxepin, melatonin HFpEF * Metoprolol, as above Hypothyroidism * Levothyroxine Constipation * Continue senna, MiraLAX GERD * Home pantoprazole Code: Full code Dispo: PCU FEN/GI: Heart healthy DVT Prophylaxis: Eliquis 5 mg twice daily PT/OT: No Consults: None Case Management: No (2) Osteomyelitis of right femur: (3) Hx of thalassemia: (4) Acute alteration in mental status: (5) HTN (hypertension): (6) Right heart failure, unspecified: (7) RLS (restless legs syndrome): (8) Generalized anxiety disorder: (9) Hypothyroidism: Admission and Anticipated Discharge Date Admission Date: July 09, 2023 History of Present Illness Primary Care Provider: Cyndy Don MD Keysha is 63-year-old woman with a past medical history of beta thalassemia, chronic atrial fibrillation, hypothyroidism, RLS, GERD, chronic knee pain, anxiety, presents to the emergency room via ambulance with complaint of anxiety/panic attack. Per ED note, patient has extensive history of mental health disease, is well-known to the ER due to frequency of visits. Patient was recently discharged from the hospital on Ancef for osteomyelitis of the right femur (final dose 07/10/2023). On arrival, initial ED evaluation revealed AF + RVR with HRs in the 170s-180s. Rest of vitals normal. She received 2 doses of IV Lopressor 5 mg, with improvement of rates from 180s to the 140s. Patient also received 2 g of IV magnesium, and multiple doses of IV Ativan. Labs notable for elevated lactate that some downtrending on subsequent recheck (2.7---> 2.1). However, on admission interview, patient remained nonverbal and agitated, repeatedly flaking limbs into metal component of hospital bed without any notable perception of pain on her part. Unable to corroborate/obtain additional HPI from the patient. Allergies Allergy/AdvReac Type Severity Reaction Status Date / Time hylan G-F 20 Allergy Severe CAN'T Verified 06/19/23 20:27 REMEMBER mushroom Allergy Intermediate RASH Verified 06/19/23 20:27 Home Medications Medication Instructions Recorded Confirmed Type acetaminophen 500 mg tablet 1,000 mg PO Q8 Pain 10/11/22 06/26/23 History (Tylenol Extra Strength) [id number] acid 0.4 1 tab PO QAM 10/11/22 06/26/23 History mg-lycopene 300 mcg-lutein 250 mcg tablet (Centrum Silver) omeprazole 20 mg tablet,delayed 20 mg PO DAILY 10/11/22 06/26/23 History release polyethylene glycol 3350 17 gram 17 g PO BID PRN Constipation 10/11/22 06/26/23 History oral powder packet (Miralax) buspirone 10 mg tablet 10 mg PO TID #270 tabs 10/24/22 06/26/23 Rx digoxin 125 mcg (0.125 mg) tablet 125 mcg PO QPM #90 tabs 10/24/22 06/26/23 Rx ropinirole 0.25 mg tablet 0.25 mg PO HS #90 tabs 11/22/22 06/26/23 Rx doxepin 100 mg capsule 100 mg PO HS 01/23/23 06/26/23 History cyclobenzaprine 10 mg tablet 10 mg PO TID PRN muscle spasm #30 02/27/23 06/26/23 Rx tabs levothyroxine 75 mcg tablet 75 mcg PO DAILY #90 tabs 02/27/23 06/26/23 Rx cyanocobalamin (vitamin B-12) 1,000 mcg PO QAM 04/01/23 06/26/23 History 1,000 mcg capsule Cefazolin Sodium 2 g IV TID 06/19/23 06/26/23 History apixaban 5 mg tablet (Eliquis) 5 mg PO BID 06/19/23 06/26/23 History ascorbic acid (vitamin C) 500 mg 500 mg PO DAILY 06/19/23 06/26/23 History tablet (Vitamin C) cholecalciferol (vitamin D3) 125 125 mcg PO DAILY 06/19/23 06/26/23 History mcg (5,000 unit) tablet (Vitamin D3) furosemide 20 mg tablet (Lasix) 20 mg PO QAM PRN edema 06/19/23 06/26/23 History guaifenesin 600 mg tablet, 600 mg PO Q12H 06/19/23 06/26/23 History extended release 12 hr (Mucinex) melatonin 10 mg tablet 20 mg PO HS 06/19/23 06/26/23 History metoprolol succinate 50 mg 50 mg PO BID 06/19/23 06/26/23 History tablet,extended release 24 hr sennosides 8.6 mg-docusate sodium 2 tab-cap PO BID 06/19/23 06/26/23 History 50 mg tablet (Senna Plus) zinc 50 mg tablet 50 mg PO DAILY 06/19/23 06/26/23 History duloxetine 30 mg capsule,delayed 30 mg PO DAILY #30 caps 06/21/23 06/26/23 Rx release ketoconazole 2 % topical cream 1 applic EXT TID PRN rash under 06/21/23 06/26/23 Rx skin folds #15 grams oxycodone 10 mg tablet 10 mg PO Q4H PRN .severe pain #30 06/21/23 06/26/23 Rx tabs Past Med/Surg History Medical History (Updated 07/09/23 @ 21:22 by Dayo Bartlett PA-C) Atrial fibrillation with RVR Atrial fibrillation, chronic Hypothyroidism Scabies Poor historian History of COVID-19 July 2020 treated at a hospital in [place] for several days. Weight loss, unintentional History of gastric polyp Hypothyroidism Hx of thalassemia no metal tester Lyme disease hx On anticoagulant therapy Major depression Anxiety Sleep apnea hx -- since weightloss and gastric bypass surgery no problems with PORTILLO. Atrial fibrillation follows with [facility]iology (Donna Osborne PA-C) dx a year ago. no cardioversions in the past. Acute hyponatremia Pneumonia hx - "years ago" Anemia Cellulitis hx Iron deficiency anemia Migraines RLS (restless legs syndrome) GERD (gastroesophageal reflux disease) occasional Chronic heart failure with preserved ejection fraction (HFpEF) Constipation PE (pulmonary embolism) 10+ years ago. unsure of cause. Cervical radiculopathy Thalassemia (Unknown) Arthroplasty of knee (Unknown) "bilateral " Surgical History History of section S/P revision of total hip History of bilateral knee arthroplasty History of esophagogastroduodenoscopy (EGD) History of colonoscopy History of cholecystectomy Status post hip surgery R HIP REPLACEMENT REMOVED DUE TO INFX History of bilateral hip replacements H/O gastric bypass Family History Father Colorectal cancer Mother Diabetes Other FHx: throat cancer No family history of adverse response to anesthesia Denies family history of Ovarian cancer Prostate cancer Myocardial infarction Breast cancer Social History Smoking Status: Former smoker Tobacco Type: Cigarettes Second Hand Exposure: No; Do You Dip or Chew Tobacco: No; Hx Alcohol Use: Yes Alcohol type: wine Hx Substance Use: Yes Substance Use Type Other:: medical marijuana Preferred Language: Hungarian Communication Ability: Impaired Communication Ability Comment: often unable to communicate effectively Visual Impairment: Partially Limited Supervising Deputy Required: No Beliefs That Will Affect Care: None marital status: Current Living Situation: Alone Current Living Situation Comment: lives alone in apartment, daughter checks on her How many Children do You have: 3 Other Information That Helps Us Care for You: No Feels Safe at Home: Yes Safety Concerns: Feels Safe At This Time Assistive Devices: Walker and Wheelchair Review of Systems Review of Systems: All systems reviewed & are unremarkable except as noted in HPI & below Physical Exam Physical Exam: General: Nonverbal, disheveled appearing woman in mild to moderate distress. HEENT: Unable to examine Respiratory: Unable to auscultate Cardiovascular: Unable to auscultate. However, HR on monitor in the 140s GI: Unable to examine Neuro: Does not appear alert or oriented to self, place, or time. Results & Data Results & Data Vital Signs (Past 12 Hours) Vital Signs Temp Pulse Pulse Resp BP BP Pulse Ox 07/09/23 06:20 07/09/23 06:00 36.3 C L 135 H 16 152/68 H 98 07/09/23 04:00 147 H 20 106/79 96 07/09/23 03:53 149 H 118/82 07/09/23 03:38 152 H 145/103 H 07/09/23 03:35 158 H 07/09/23 03:20 180 H 22 161/91 H 98 07/09/23 03:20 165 H 161/91 H 07/09/23 02:42 185 H 07/09/23 02:36 172 H 29 H 125/95 98 07/09/23 01:28 36.8 C 35 H 95 O2 Del Method 07/09/23 06:20 Room Air 07/09/23 06:00 Nasal Cannula 07/09/23 04:00 Room Air 07/09/23 03:53 07/09/23 03:38 07/09/23 03:35 07/09/23 03:20 07/09/23 03:20 07/09/23 02:42 07/09/23 02:36 Room Air 07/09/23 01:28 Room Air Code Status & VTE Plan VTE Prophylaxis Plan VTE Prophylaxis will be ordered: Yes Supervising Physician Co-Signing Physician Notes Attending addendum: I have physically seen this patient, have supervised the medical residents activities, and agree with the H&P unless as otherwise noted. Assessment and Plan: Atrial fibrillation with RVR- The patient will be admitted to telemetry for serial cardiac enzymes, serial EKG's, cardiac rhythm monitoring and a 2-D echocardiogram with Dopplers. Receiving Lopressor 5 mg IV x 2, lorazepam IV, and IV fluids have driven heart rate from the 180s down to 140s down to the 100s Patient with underlying psychiatric issues has been significantly agitated, which is contributing to the increased heart rate and will be treated with IV lorazepam and IM Zyprexa Continue Eliquis 5 mg p.o. twice daily Continue home metoprolol, digoxin Altered mental status/generalized anxiety disorder- Patient has had acute alterations in the past Contributing factors now may be her ongoing treatment for right femur osteomyelitis Continue Cymbalta, BuSpar, doxepin and melatonin IV Ativan and IM Zyprexa as noted above Right femur osteomyelitis- Continue Ancef 3 g IV daily Resident Activity Tracking Resident Involvement: Resident Care Provided Care Provided: Adult Hospital Medicine (2) Osteomyelitis of right femur Osteomyelitis type: unspecified type Qualified Code(s): M86.9 - Osteomyelitis, unspecified
[2023-07-09] MEDS ORDERED: ceFAZolin 2000MG 2,000 MG/15 ML SYR IV SCH (07:15)
--- NOTE | 2023-07-09 08:23 | Electrocardiogram Report ---
Test Reason : Blood Pressure : / mmHG Vent. Rate : 173 BPM Atrial Rate : 396 BPM P-R Int : 000 ms QRS Dur : 086 ms QT Int : 270 ms P-R-T Axes : 000 099 -63 degrees QTc Int : 458 ms Atrial flutter with variable A-V block Rightward axis Diffuse Nonspecific ST and T wave abnormality Abnormal ECG When compared with ECG of 14-APR-2023 11:22, Atrial flutter has replaced Atrial fibrillation Vent. rate has increased BY 69 BPM Confirmed by Jose Juan Valencia ([id number]) on 07/09/2023 8:22:56 AM Referred By: REFERRED SELF Confirmed By:Jose Juan Valencia
[2023-07-09] MEDS ORDERED: METOPROLOL SUCC 50MG EXT REL TAB PO SCH (09:00)
[2023-07-09] MEDS ORDERED: CEFAZOLIN SODIUM 2 GM IV SCH (09:00)
--- NOTE | 2023-07-09 10:19 | Communication Note ---
Date of Service: July 09, 2023 Follow up note, admitted this am On my exam sedated, poorly arousable, opens eyes and grimaces to gentle tactile stim, valerie, doesn't verbalize, resp deep and unlabored, lungs CTAB, EJs prominent, HR 100 irreg no mrg, abd sntnd. R hip incision fully healed. Mild LE and thigh edema. (1) Atrial fibrillation with RVR: Plan: 63 F with PMH HFpEF, anxiety, HTN, RLS, hypothyroidism, recently d/c on Ancef for osteomyelitis of right femur (through 07/10/2023) who presented with complaints of anxiety and found to have acute on chronic AF with RVR. Now s/p IV Ativan, IV Zyprexa, admitted to hospital for further rate control. Possible UTI - abnormal UA, leukocytosis. IV ceftriaxone x 3 days ordered AF + RVR -History of chronic A-fib on metoprolol and digoxin. Given IV fluid and IV metoprolol 5 mg x 2 doses in ED * Admit to PCU * Rate control: Digoxin load if hypotensive, metoprolol if normotensive * Home anticoagulation with Eliquis 5 mg twice daily * metoprolol 5 mg IV q6h for now, resume home metoprolol 50 mg twice daily once awake enough for po, po digoxin Right femur osteomyelitis * plan was for cefazolin through 07/10/23. changed to ceftriaxone to better cover possible UTI. Added on CRP and ESR. History of thalassemia * Noted Acute toxic encephalopathy -was described as panicking and yelling on arrival to ED but was verbal and alert -currently sedated, caused by doses of olanzapine IM and lorazepam IV given in ED for anxiety attack and agitation -started duloxetine days ago, tox +cannabis -po meds held until more awake, discussed with RN -observe and see if more alert later after meds wear off RLS * Ropinirole * As needed Flexeril for spasms, cramps JACEY * Continue Cymbalta, BuSpar, doxepin, melatonin HFpEF * Metoprolol, as above Hypothyroidism * Levothyroxine Constipation * Continue senna, MiraLAX GERD * Home pantoprazole
[2023-07-09 11:02] LABS: C Reactive Protein 4.99 mg/dl (0-0.5)
[2023-07-09] MEDS: METOPROLOL TARTRATE 1 MG/ML VIAL IV SCH ×2 (12:17→18:02)
[2023-07-09] MEDS: cefTRIAXone SODIUM 2,000 MG in DEXTROSE 5 % MINI-B 50 ML IV SCH (12:17)
[2023-07-09] MEDS: PANTOprazole 40 MG in SYRINGE 0 ML IV SCH (12:17)
[2023-07-09] MEDS: CHOLECALCIFEROL 5,000 UNITS 125 MCG TAB PO SCH (13:11)
[2023-07-09] MEDS: APIXABAN 5 MG TABLET PO SCH ×2 (13:11→20:14)
[2023-07-09] MEDS: ASCORBIC ACID 500 MG TAB PO SCH (13:11)
[2023-07-09] MEDS: busPIRone 5 MG TAB PO SCH ×3 (13:11→20:17)
[2023-07-09] MEDS: DULoxetine HCL 30 MG CAP PO SCH (13:12)
[2023-07-09] MEDS: guaiFENesin 600 MG TABCR PO SCH ×2 (13:12→20:12)
[2023-07-09] MEDS: DOCUSATE SODIUM/SENNA 50/8.6MG TAB PO SCH ×2 (13:12→20:13)
[2023-07-09] MEDS: ZINC SULFATE 220 MG CAPSULE PO SCH (13:12)
[2023-07-09] MEDS: CYANOCOBALAMIN (B-12) 500 MCG TABLET PO SCH (13:12)
[2023-07-09] MEDS: CEROVITE ADV FORMULA TAB PO SCH (13:12)
[2023-07-09] MEDS: oxyCODONE HCL IR 5 MG TAB (IMMEDIATE RELEASE) PO PRN (18:06)
[2023-07-09] MEDS: METOPROLOL SUCC 50MG EXT REL TAB PO SCH (20:12)
[2023-07-09] MEDS: DOXEPIN HCL 50 MG CAPSULE PO SCH (20:16)
[2023-07-09] MEDS: rOPINIRole HCL 0.25 MG TABLET PO SCH (20:16)
[2023-07-09] MEDS: DIGOXIN 0.125 MG TAB PO SCH (20:18)
[2023-07-10] MEDS: oxyCODONE HCL IR 5 MG TAB (IMMEDIATE RELEASE) PO PRN ×3 (01:35→21:42)
--- NOTE | 2023-07-10 02:52 | Billing Data ---
Date of Service July 10, 2023 Coding Level of Care Code 09263 INT INP/OBS CARE
[2023-07-10] MEDS ORDERED: LACTATED RINGER'S 500 ML IV ONE (03:25)
[2023-07-10] MEDS: CYCLOBENZAPRINE HCL 10 MG TAB PO PRN (04:24)
[2023-07-10] MEDS ORDERED: METOPROLOL TARTRATE 1 MG/ML VIAL IV STA (04:59)
[2023-07-10] MEDS: LEVOTHYROXINE SODIUM 75 MCG TABLET PO SCH (05:39)
[2023-07-10 06:30] LABS: Basophils # (auto) 0.03 K/uL (0.00-0.20); Basophils % (auto) 0.4 %; Eosinophils # (auto) 0.14 K/uL (0.00-0.50); Hematocrit (blood only) 24.3 % (37.0-47.0); Hemoglobin 7.7 g/dl (12.0-16.0); Immature Granulocytes # (auto) 0.02 K/uL (0.01-0.20); Immature Granulocytes % (auto) 0.3 %; Mean Corpuscular Hemoglobin 21.2 pg (25.0-34.0); Mean Corpuscular Hgb Conc 31.7 g/dL (32.0-36.0); Mean Corpuscular Volume 66.8 fL (80.0-100.0); Monocytes # (auto) 0.52 K/uL (0.11-0.59); Monocytes % (auto) 7.6 %; Neutrophils # (auto) 4.85 K/uL (1.40-6.50); Neutrophils % (auto) 70.7 %; RDW Coefficient of Variation 21.1 % (11.5-14.5); Red Blood Count 3.64 M/uL (4.20-5.40); White Blood Count 6.86 K/ul (4.8-10.8)
[2023-07-10 06:58] LABS: Albumin Globulin Ratio 0.8 (0.9-2); Albumin Level 2.9 gm/dl (3.4-5.0); BUN Creatinine Ratio 13.8 (10-20); Bilirubin,Total 0.6 mg/dl (0.2-1.0); Calcium 8.3 mg/dl (8.6-10.3); Creatinine Clr Calc Pharmacy 106.4 ml/min; Est GFR (African American) 115.3 ml/min; Est GFR (Non-African American) 99.5 ml/min; Globulin 3.8 gm/dl (2.5-4.0); Magnesium 1.9 mg/dl (1.7-2.4); Phosphorus 2.8 mg/dl (2.5-4.9); Total Protein 6.7 gm/dl (6.0-8.3)
[2023-07-10 07:05] LABS: Hypochromasia Present; Mean Platelet Volume 9.2 fL (9.4-12.4); Microcytosis Present; Platelet Count 365 K/uL (130-400); Target Cells 1+
[2023-07-10 07:33] LABS: Estimated Average Glucose 97 mg/dl
[2023-07-10] MEDS: busPIRone 5 MG TAB PO SCH ×3 (08:21→21:42)
[2023-07-10] MEDS: ZINC SULFATE 220 MG CAPSULE PO SCH (08:22)
[2023-07-10] MEDS: DOCUSATE SODIUM/SENNA 50/8.6MG TAB PO SCH ×2 (08:22→21:42)
[2023-07-10] MEDS: DULoxetine HCL 30 MG CAP PO SCH (08:22)
[2023-07-10] MEDS: ASCORBIC ACID 500 MG TAB PO SCH (08:22)
[2023-07-10] MEDS: CHOLECALCIFEROL 5,000 UNITS 125 MCG TAB PO SCH (08:22)
[2023-07-10] MEDS: METOPROLOL SUCC 50MG EXT REL TAB PO SCH (08:22)
[2023-07-10] MEDS: CEROVITE ADV FORMULA TAB PO SCH (08:22)
[2023-07-10] MEDS: CYANOCOBALAMIN (B-12) 500 MCG TABLET PO SCH (08:22)
[2023-07-10] MEDS: APIXABAN 5 MG TABLET PO SCH ×2 (10:20→21:42)
[2023-07-10] MEDS: guaiFENesin 600 MG TABCR PO SCH ×2 (10:20→21:43)
[2023-07-10] MEDS ORDERED: METOPROLOL TARTRATE 25 MG TAB PO ONE (10:45)
[2023-07-10] MEDS: PANTOprazole 40 MG in SYRINGE 0 ML IV SCH (11:27)
[2023-07-10] MEDS: cefTRIAXone SODIUM 2,000 MG in DEXTROSE 5 % MINI-B 50 ML IV SCH (11:27)
--- NOTE | 2023-07-10 18:50 | Hospitalist Progress Note ---
Date of Service July 10, 2023 Assessment & Plan (1) Atrial fibrillation with RVR: Plan: 63 F with PMH HFpEF, anxiety, HTN, RLS, hypothyroidism, recently d/c on Ancef for osteomyelitis of right femur (through 07/10/2023) who presented with complaints of anxiety and found to have acute on chronic AF with RVR. AF + RVR -History of chronic A-fib on metoprolol and digoxin. -S/p IVF resuscitation, IV Ativan IV Lopressor 5 mg x 2 doses, HR 180---> 140s---> 100s * Home anticoagulation with Eliquis 5 mg twice daily * Continue home digoxin; gave 1 short acting dose of metoprolol midday then increased Toprol-XL to 62.5 mg twice daily for suboptimal rate control on 07/10. unclear whether her BP will tolerate this Possible UTI - abnormal UA and urine growing GPC. Leukocytosis resolved. Potential contributor to rapid AF. continue ceftriaxone awaiting S/S. Discontinue whitlock catheter. Right femur osteomyelitis * has completed her 6-week course of cefazolin. States she follows with infectious disease at [place] and she has an oral antibiotic at home that she is supposed to go on chronic suppression with. Sounds like this is a cephalosporin History of thalassemia Acute toxic encephalopathy - related to medications given in ED for panic/anxiety attack. Resolved. Mild chronic hyponatremia - Na 130 which is her baseline. Possibly SIADH related to psychiatric medications. Not on diuretic and did not correct with IV fluids given at admission. Check urine sodium. RLS * Ropinirole * As needed Flexeril for spasms, cramps JACEY * Continue Cymbalta, BuSpar, doxepin, melatonin HFpEF * Metoprolol, as above. Appears euvolemic and well compensated. Hypothyroidism * Levothyroxine Constipation * Continue senna, MiraLAX GERD * Home pantoprazole Code: Full code Dispo: PCU FEN/GI: Heart healthy DVT Prophylaxis: Eliquis 5 mg twice daily PT/OT: ordered Consults: None Case Management: No (2) Osteomyelitis of right femur: (3) Hx of thalassemia: (4) Acute alteration in mental status: (5) HTN (hypertension): (6) Right heart failure, unspecified: (7) RLS (restless legs syndrome): (8) Generalized anxiety disorder: (9) Hypothyroidism: Admission and Anticipated Discharge Date Admission Date: July 09, 2023 Subjective Much improved, awake and alert since yesterday afternoon. No dyspnea or chest pain, heart rates in 100-110s in afib on monitor Physical Exam 2 Physical Exam: PHYSICAL EXAMINATION Last 24h vital signs reviewed, see documentation in flowsheet General: comfortable appearing, no distress, sitting up in bed HEENT: Normocephalic, atraumatic, pupils round and equal, sclerae anicteric, no conjunctival injection, moist mucus membranes Lungs: Normal respiratory effort. Clear to auscultation bilaterally. No RRW Heart: Regular rate and rhythm, no murmurs. No JVD Abdomen: Soft, nontender, nondistended. Bowel sounds present. Extremities: Warm, dry, well-perfused. No extremity edema. multiple shallow ulcerations on lower extremities, reviewed photos by wound nurse Whitlock catheter draining yellow urine Neuro: Alert and oriented x 4, face symmetric, moves 4 extremities well Psych: Normal affect and behavior Results & Data Results & Data Vital Signs (Past 12 Hours) Vital Signs Temp Pulse Pulse Resp BP Pulse Ox O2 Del Method 07/10/23 18:00 86 07/10/23 16:04 36.8 C 111 H 19 93/48 L 93 Room Air 07/10/23 11:24 121/81 07/10/23 11:22 36.7 C 112 H 19 98/67 L 93 Room Air 07/10/23 10:00 119 H 07/10/23 07:18 37.1 C 111 H 20 126/80 93 Room Air Laboratory Results 07/10/23 05:47 07/10/23 05:47 PG Care Time/CCT Total # of Minutes Spent Total Time Spent with Patient: Total time spent is greater than 50% in coordination of care (as documented) at patient's floor/unit and/or counseling patient: Coding Level of Care Code 14965 SUB INP/OBS CARE 2/35MIN Diagnoses Atrial fibrillation with RVR I48.91 Osteomyelitis of right femur M86.9 Osteomyelitis type: unspecified type Hx of thalassemia Z86.2 Acute alteration in mental status R41.82 HTN (hypertension) I10 Right heart failure, unspecified I50.810 RLS (restless legs syndrome) G25.81 Generalized anxiety disorder F41.1 Hypothyroidism E03.9 (2) Osteomyelitis of right femur Osteomyelitis type: unspecified type Qualified Code(s): M86.9 - Osteomyelitis, unspecified
[2023-07-10] MEDS: rOPINIRole HCL 0.25 MG TABLET PO SCH (21:42)
[2023-07-10] MEDS: DOXEPIN HCL 50 MG CAPSULE PO SCH (21:43)
[2023-07-10] MEDS: DIGOXIN 0.125 MG TAB PO SCH (21:43)
[2023-07-10] MEDS: METOPROLOL SUCC 25MG EXT REL TAB PO SCH (21:48)
[2023-07-10] MEDS ORDERED: ACETAMINOPHEN 500 MG TAB PO PRN (23:32)
[2023-07-11] MEDS: LEVOTHYROXINE SODIUM 75 MCG TABLET PO SCH (05:55)
[2023-07-11 06:32] LABS: Basophils # (auto) 0.03 K/uL (0.00-0.20); Basophils % (auto) 0.5 %; Eosinophils # (auto) 0.26 K/uL (0.00-0.50); Eosinophils % (auto) 4.1 %; Hematocrit (blood only) 27.5 % (37.0-47.0); Hemoglobin 8.5 g/dl (12.0-16.0); Immature Granulocytes # (auto) 0.01 K/uL (0.01-0.20); Immature Granulocytes % (auto) 0.2 %; Mean Corpuscular Hemoglobin 20.9 pg (25.0-34.0); Mean Corpuscular Hgb Conc 30.9 g/dL (32.0-36.0); Mean Corpuscular Volume 67.7 fL (80.0-100.0); Neutrophils # (auto) 3.95 K/uL (1.40-6.50); Neutrophils % (auto) 62.2 %; RDW Coefficient of Variation 21.3 % (11.5-14.5); RDW Standard Deviation 48.3 fL (36.4-46.3); Red Blood Count 4.06 M/uL (4.20-5.40); White Blood Count 6.35 K/ul (4.8-10.8)
[2023-07-11 06:36] LABS: Mean Platelet Volume 9.2 fL (9.4-12.4); Platelet Count 367 K/uL (130-400)
[2023-07-11 07:00] LABS: Albumin Globulin Ratio 0.7 (0.9-2); BUN Creatinine Ratio 19.4 (10-20); Bilirubin,Total 0.4 mg/dl (0.2-1.0); Calcium 8.4 mg/dl (8.6-10.3); Creatinine Clr Calc Pharmacy 98.7 ml/min; Est GFR (African American) 112.8 ml/min; Est GFR (Non-African American) 97.3 ml/min; Globulin 4.1 gm/dl (2.5-4.0); Magnesium 1.9 mg/dl (1.7-2.4); Phosphorus 3.4 mg/dl (2.5-4.9); Potassium 4.2 mmol/L (3.5-5.1); Total Protein 7.1 gm/dl (6.0-8.3)
[2023-07-11 07:20] LABS: Hypochromasia Present; Polychromasia 1+; Target Cells 2+
[2023-07-11 08:27] LABS: Marijuana Quant, GCMS Urine 2004 ng/mL (<5)
[2023-07-11] MEDS: busPIRone 5 MG TAB PO SCH (08:30)
[2023-07-11] MEDS: oxyCODONE HCL IR 5 MG TAB (IMMEDIATE RELEASE) PO PRN (08:31)
[2023-07-11] MEDS: ZINC SULFATE 220 MG CAPSULE PO SCH (08:32)
[2023-07-11] MEDS: CYANOCOBALAMIN (B-12) 500 MCG TABLET PO SCH (08:32)
[2023-07-11] MEDS: CHOLECALCIFEROL 5,000 UNITS 125 MCG TAB PO SCH (08:32)
[2023-07-11] MEDS: ASCORBIC ACID 500 MG TAB PO SCH (08:32)
[2023-07-11] MEDS: CEROVITE ADV FORMULA TAB PO SCH (08:32)
[2023-07-11] MEDS: DULoxetine HCL 30 MG CAP PO SCH (08:32)
[2023-07-11] MEDS ORDERED: cefTRIAXone SODIUM 350 MG/ML IM IM ONE ×2 (08:33→09:00)
[2023-07-11] MEDS: METOPROLOL SUCC 25MG EXT REL TAB PO SCH (08:33)
[2023-07-11] MEDS: guaiFENesin 600 MG TABCR PO SCH (08:34)
[2023-07-11] MEDS: DOCUSATE SODIUM/SENNA 50/8.6MG TAB PO SCH (08:34)
[2023-07-11] MEDS: APIXABAN 5 MG TABLET PO SCH (08:35)
[2023-07-11] MEDS: PANTOprazole 40 MG in SYRINGE 0 ML IV SCH (12:28)
--- NOTE | 2023-07-11 17:02 | Discharge Summary ---
Date of Service July 11, 2023 Admission HPI Per Admitting Provider Keysha is 63-year-old woman with a past medical history of beta thalassemia, chronic atrial fibrillation, hypothyroidism, RLS, GERD, chronic knee pain, anxiety, presents to the emergency room via ambulance with complaint of anxiety/panic attack. Per ED note, patient has extensive history of mental health disease, is well-known to the ER due to frequency of visits. Patient was recently discharged from the hospital on Ancef for osteomyelitis of the right femur (final dose 07/10/2023). On arrival, initial ED evaluation revealed AF + RVR with HRs in the 170s-180s. Rest of vitals normal. She received 2 doses of IV Lopressor 5 mg, with improvement of rates from 180s to the 140s. Patient also received 2 g of IV magnesium, and multiple doses of IV Ativan. Labs notable for elevated lactate that some downtrending on subsequent recheck (2.7---> 2.1). However, on admission interview, patient remained nonverbal and agitated, repeatedly flaking limbs into metal component of hospital bed without any notable perception of pain on her part. Unable to corroborate/obtain additional HPI from the patient. Principal Diagnosis Atrial fibrillation with rapid rate Discharge Exam PHYSICAL EXAMINATION Last 24h vital signs reviewed, see documentation in flowsheet General: sitting up in bed appears much improved HEENT: Normocephalic, atraumatic, pupils round and equal, sclerae anicteric, no conjunctival injection, moist mucus membranes Lungs: Normal respiratory effort. Clear to auscultation bilaterally. No RRW Heart: irreg irreg rate and rhythm, no murmurs. No JVD Abdomen: Soft, nontender, nondistended. Bowel sounds present. Extremities: Warm, dry, well-perfused. No extremity edema. multiple shallow ulcerations on lower extremities dressed, reviewed photos by wound nurse April has been removed Neuro: Alert and oriented x 4, face symmetric, moves 4 extremities well Psych: Normal affect and behavior Discharge Data Allergies Allergy/AdvReac Type Severity Reaction Status Date / Time hylan G-F 20 Allergy Severe CAN'T Verified 06/19/23 20:27 REMEMBER mushroom Allergy Intermediate RASH Verified 06/19/23 20:27 Consultations 07/09/23 03:46 ED Decision to Admit Stat Hospital Course (1) Atrial fibrillation with RVR: 63 F with PMH HFpEF, anxiety, HTN, RLS, hypothyroidism, recently d/c on Ancef for osteomyelitis of right femur (through 07/10/2023) who presented with complaints of anxiety and found to have acute on chronic AF with RVR. AF + RVR -History of chronic A-fib on metoprolol and digoxin. -in ED treated with IVF resuscitation, IV Ativan for panic, IV Lopressor 5 mg x 2 doses, HR 180---> 140s---> 100s * anticoagulation with Eliquis 5 mg twice daily was continued * reviewed old records and she was on metoprolol 100 mg bid through fall 2022. Subsequently dose was reduced to 50 mg bid she says while she was in rehab. * rate came under good control with increase in metoprolol dose to 62.5 mg bid. Did not increase further because of low normal BPs. Might tolerate increase to 75 bid in future if necessary * continued oral digoxin * follow up in primary care She grew VRE from urine, was treated initially with antibiotics in hospital but organism was resistant and she remained asymptomatic throughout. Will not treat asymptomatic bacteriuria. Chronic shallow bilateral LE wounds. Wound nurse consulted, gave wound care recommendations. They did not appear infected. Ordered home health RN to resume to assist with wound care. She has been referred to wound clinic several times in past but not showed up for appointments. Right femur osteomyelitis * has completed her 6-week course of cefazolin. States she follows with infectious disease at [facility] and she has an oral antibiotic at home that she is supposed to go on chronic suppression with. Reviewed fill history and it is cefadroxil - continue Acute toxic encephalopathy - related to medications given in ED for panic/anxiety attack. Resolved. Mild chronic hyponatremia - Na 130 which is her baseline. Possibly SIADH related to psychiatric medications. Not on diuretic and did not correct with IV fluids given at admission. Check urine sodium. RLS * Ropinirole * As needed Flexeril for spasms, cramps JACEY * Continue Cymbalta, BuSpar, doxepin, melatonin HFpEF * Metoprolol, as above. Appears euvolemic and well compensated. Hypothyroidism * Levothyroxine Constipation * Continue senna, MiraLAX GERD * Home pantoprazole History of thalassemia Home health PT, OT, RN resumed. At her functional baseline at time of discharge. (2) Osteomyelitis of right femur: (3) Hx of thalassemia: (4) Acute alteration in mental status: (5) HTN (hypertension): (6) Right heart failure, unspecified: (7) RLS (restless legs syndrome): (8) Generalized anxiety disorder: (9) Hypothyroidism: Total Time Total Time Spent Total Time Spent (In Minutes): 25 minutes Discharge Plan Discharge Items Patient Disposition: Home - Home Health Services Reason For Visit: ANXIETY Discharge Diagnosis: atrial fibrillation with rapid rate Activity: Resume your previous activity Non-emergency contact: Primary Care Provider Call non-emergency contact if: you have any medication questions, your symptoms worsen and you have a fever Follow-up/Referrals: Cyndy Don MD [Primary Care Provider] - 07/23/23 1:00 pm Diet: Heart Healthy Addtl Attending Provider Instructions: You were hospitalized with rapid heartbeat due to atrial fibrillation You used to be on a higher dose of metoprolol (100 mg twice a day) this fall. You are right that the dose was lowered in the interim. -I increased the dose of metoprolol a little bit, which will control your heart rate better. It might need to be increased further but its safest to go slow because your blood pressure is on the low-normal side -continue your digoxin and apixaban -follow up in primary care as soon as possible You had some bacteria in your urine without specific UTI symptoms. I doubt this was UTI. We gave you three doses of IV antibiotics in the hospital, which will treat most UTIs. If you develop urinary pain, burning, lower abdominal pain or fever call your doctor. Continue taking the antibiotic prescribed by your infectious disease doctor (cefadroxil) and follow up as scheduled for your hip. Would care instructions: Clean wounds with normal saline, pat dry. Apply Aquacel Ag and cover with optifoam. Change every other day or as needed if increased drainage. Pending Studies at Discharge: Yes (urine culture) Stand-Alone Forms: My [employer], Smoking Cessation Medications and DC Order Prescriptions: New metoprolol succinate 25 mg Tablet Extended Release 24 Hr 62.5 mg PO BID Qty: 75 0RF cefadroxil 500 mg capsule 500 mg PO BID Qty: 1 0RF Rx Instructions: already has supply at home - chronic suppressive therapy for hip osteomyelitis - resuming Continued buspirone 10 mg tablet 10 mg PO TID Qty: 270 3RF digoxin 125 mcg (0.125 mg) tablet 125 mcg PO QPM Qty: 90 3RF Rx Instructions: hold for pulse < 60 ropinirole 0.25 mg tablet 0.25 mg PO HS Qty: 90 3RF cyclobenzaprine 10 mg tablet 10 mg PO TID PRN (Reason: muscle spasm) Qty: 30 0RF levothyroxine 75 mcg tablet 75 mcg PO DAILY Qty: 90 3RF Centrum Silver 0.4 mg-300 mcg- 250 mcg Tablet 1 tab PO QAM polyethylene glycol 3350 [Miralax] 17 gram powder in packet 17 g PO BID PRN (Reason: Constipation) acetaminophen [Tylenol Extra Strength] 500 mg tablet 1,000 mg PO Q8 omeprazole 20 mg tablet,delayed release (DR/EC) 20 mg PO DAILY cyanocobalamin (vitamin B-12) 1,000 mcg capsule 1,000 mcg PO QAM doxepin 100 mg capsule 100 mg PO HS ascorbic acid (vitamin C) [Vitamin C] 500 mg Tablet 500 mg PO DAILY cholecalciferol (vitamin D3) [Vitamin D3] 125 mcg (5,000 unit) Tablet 125 mcg PO DAILY sennosides-docusate sodium [Senna Plus] 8.6-50 mg Tablet 2 tab-cap PO BID zinc 50 mg Tablet 50 mg PO DAILY melatonin 10 mg Tablet 20 mg PO HS Eliquis 5 mg tablet 5 mg PO BID guaifenesin [Mucinex] 600 mg Tablet Extended Release 12hr 600 mg PO Q12H furosemide [Lasix] 20 mg tablet 20 mg PO QAM PRN (Reason: edema) ketoconazole 2 % Cream 1 applic EXT TID PRN (Reason: rash under skin folds) Qty: 15 0RF duloxetine 30 mg Capsule,Delayed Release(Dr/Ec) 30 mg PO DAILY Qty: 30 0RF oxycodone 10 mg Tablet 10 mg PO Q4H PRN (Reason: .severe pain) Qty: 30 0RF Discontinued Cefazolin Sodium 2 g IV TID Rx Instructions: End 07/08/2023 metoprolol succinate 50 mg Tablet Extended Release 24 Hr 50 mg PO BID Discharge Orders: Discharge Order (Routine); Ordered 07/11/23 Ordered By: Yanet Dennis Admission Data Admit Date/Time: 07/09/23 04:32 Attending Provider: Yanet Dennis Admit Provider: Gamaliel Corea Primary Care Provider: Cyndy Don Other Providers: Luke Arambula; [facility] Other Interventions: Discharge Summary Assessment (RN) Last Done: 07/11/23 13:00 Coding Level of Care Code 91339 IN/OBS DISCH 30 MIN/LESS Diagnoses Atrial fibrillation with RVR I48.91 Osteomyelitis of right femur M86.9 Osteomyelitis type: unspecified type Hx of thalassemia Z86.2 Acute alteration in mental status R41.82 HTN (hypertension) I10 Right heart failure, unspecified I50.810 RLS (restless legs syndrome) G25.81 Generalized anxiety disorder F41.1 Hypothyroidism E03.9
== END 2023-07-11 14:09 | disposition home health service (06) | DRG 308 ==
LOC: ED 01:06 → 4W 04:32 → SUATTDRO 04:32 → INTOOBSV 04:32 → 4W 05:33

== ENCOUNTER 2024-04-07 14:58 | Inpatient (IN) ==
--- NOTE | 2024-04-07 15:43 | Emergency Department Note ---
Impression & Plan Abdominal pain, Nausea & vomiting ED Provider Note ED Provider Note NAME: LAURIE HAMILTON AGE:63 SEX: Female : 1960 ARRIVES VIA: EMS INFORMANT: Patient ED PROVIDER(s): Sarahy Doyle DO CHIEF COMPLAINT: Abdominal pain, nausea and vomiting HPI: This is a 63-year-old female presents emergency room due to concern for abdominal pain, nausea and vomiting that began yesterday. She denies any recent known sick contacts, new medications, or change in diet. She states she initially began with pain and nausea and thought she was perhaps constipated. She states she had a small bowel movement last night, however pain was persistent she began having vomiting and dry heaving. No history of IBS or IBD. No prior abdominal surgeries. Patient does have history of atrial fibrillation. PAST MEDICAL HISTORY:See Below PAST SURGICAL HISTORY:See Below FAMILY HISTORY:See Below SOCIAL HISTORY:See Below HOME MEDICATIONS:See Below ALLERGIES:See Below VITALS:See Below PHYSICAL EXAMINATION: GENERAL: alert, unwell appearing, well nourished, moderate distress, non-toxic EYE EXAM: normal conjunctiva, PERRL and EOM's grossly intact OROPHARYNX: no exudate, no erythema, lips, buccal mucosa, and tongue normal and mucous membranes are dry, edentulous NECK: supple, no nuchal rigidity, no adenopathy, non-tender LUNGS: Clear to auscultation. Normal chest wall mechanics, no w/r/r HEART: no murmurs, S1 normal and S2 normal ABDOMEN: abdomen soft, mild generalized discomfort with palpation normo-active bowel sounds, no masses, no rebound or guarding. BACK: Back is symmetrical on inspection and there is no deformity SKIN: no rashes, petechiae, orbruising UPPER EXTREMITIES: upper extremities are grossly normal. FROM, nml pulses b/l. LOWER EXTREMITIES: No pitting edema. FROM, nml pulses b/l. NEURO EXAM: Normal sensorium, cranial nerves II-XII grossly intact, normal speech, no facial droop,nogross weakness of arms, no gross weakness of legs. Gross sensation intact. No ataxia. Vital Signs: reviewed and remarkable Differential Diagnosis: CHS, SBO, colitis, medication adr, IBS, IBD, perf, GI bleed, AAA, UTI, dehydration, as well as others were considered MEDICAL DECISION MAKING: This is a 63 yo female who presents c/o abd pain and n/v. She was afebrile and VS stable. She was difficult to obtain IV access on and demanded pain medication prior to any other testing from staff. Labs drawn and sent, IV established, EKG and KUB performed and interpreted at bedside, and patient placed on telemetry. SHe was started on IVF due to persistent vomiting after oral zofran and given IV tylenol, IM bentyl, IV zofran, IV pepcid without improvement. KUB abnormal appearing and given prior surgical hx, she was sent for CT a/p. While awaiting CT she was given IV morphine for pain and due to persistent a.fib with RVR which she has a hx of and is treated for, she was given IV metoprolol additionally. VS stable throughout. Patient signed out to Dr. Zelaya awaiting CT results. ER Treatment Provided: See below 1900: Patient signed out to Dr. Zelaya awaiting CT a/p results. Diagnostics Interpreted By Me: -ECG: Atrial fibrillation at 116, rightward axis, normal intervals, nonspecific ST/T wave changes -Cardiac Monitoring: An order was placed for continuous cardiac monitoring. The monitor shows a rate of 128 with atrial fibrillation rhythm. -Laboratory studies: As stated above and show below. 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 and Osteomyelitis of right femur (Acute) Spondylolisthesis of cervical region Metabolic encephalopathy Status post Girdlestone procedure Family history of colon cancer Neck pain (Acute) Warfarin-induced coagulopathy (Acute) HTN (hypertension) (Chronic) Chronic pain (Acute) Fall down stairs (Acute) Left wrist injury (Acute) Orthostatic dizziness (Acute) Subtherapeutic international normalized ratio (INR) (Acute) Right heart failure, unspecified Peripheral edema Adjustment disorder with disturbance of emotion Generalized anxiety disorder Chronic pain of right hip (Acute) Diabetes pt denies Impaired ambulation Urinary incontinence Constipation (Acute) RLS (restless legs syndrome) Migraines H/O gastric bypass Medical History Dave Fields historian History of COVID-19 July 2020 treated at a hospital in [place] for several days. Weight loss, unintentional History of gastric polyp Hypothyroidism Lyme disease hx On anticoagulant therapy Major depression Anxiety Sleep apnea hx -- since weightloss and gastric bypass surgery no problems with PORTILLO. Atrial fibrillation follows with [facility] Cardiology (Donna Osborne PA-C) dx a year ago. no cardioversions in the past. Acute hyponatremia Pneumonia hx - "years ago" Anemia Iron deficiency anemia GERD (gastroesophageal reflux disease) occasional Chronic heart failure with preserved ejection fraction (HFpEF) PE (pulmonary embolism) 10+ years ago. unsure of cause. Cervical radiculopathy Thalassemia (Unknown) Arthroplasty of knee (Unknown) "bilateral " Surgical History History of section S/P revision of total hip History of bilateral knee arthroplasty History of esophagogastroduodenoscopy (EGD) History of colonoscopy History of cholecystectomy Status post hip surgery R HIP REPLACEMENT REMOVED DUE TO INFX History of bilateral hip replacements Family History Father Colorectal cancer Mother Diabetes Other FHx: throat cancer No family history of adverse response to anesthesia Denies family history of Ovarian cancer Prostate cancer Myocardial infarction Breast cancer Social History Smoking Status: Former smoker Tobacco Type: Cigarettes Second Hand Exposure: No; Do You Dip or Chew Tobacco: No; Tobacco Cessation Education Requested by Patient: No Hx Alcohol Use: Yes Alcohol type: wine Hx Substance Use: Yes Substance Use Type Other:: medical marijuana Preferred Language: Tamazight Communication Ability: Effective Communication Ability Comment: often unable to communicate effectively Visual Impairment: Partially Limited Colors Custodian Required: No Beliefs That Will Affect Care: None marital status: Current Living Situation: Alone Current Living Situation Comment: lives alone in apartment, daughter checks on her How many Children do You have: 3 Other Information That Helps Us Care for You: No Feels Safe at Home: Yes Safety Concerns: Feels Safe At This Time Diet: regular caffeine: Yes Dental Care, Regularly: No Physical Activity Frequency: Does not Exercise Seatbelt Use: always Sunscreen Use: Yes Assistive Devices: Scooter/Electric Scooter and Other Allergies Allergies Allergy/AdvReac Type Severity Reaction Status Date / Time cely Mcelroy Allergy Severe CAN'T Verified 08/22/23 13:49 REMEMBER mushroom Allergy Intermediate RASH Verified 08/22/23 13:49 Home Meds Home Medications Medication Instructions Recorded Confirmed acetaminophen 500 mg tablet 1,000 mg PO Q8 Pain 10/11/22 07/15/23 (Tylenol Extra Strength) [id number] acid 0.4 1 tab PO QAM 10/11/22 07/15/23 mg-lycopene 300 mcg-lutein 250 mcg tablet (Centrum Silver) polyethylene glycol 3350 17 gram 17 g PO BID PRN Constipation 10/11/22 07/15/23 oral powder packet (Miralax) doxepin 100 mg capsule 100 mg PO HS 01/23/23 07/15/23 cyanocobalamin (vitamin B-12) 1,000 mcg PO QAM 04/01/23 07/15/23 1,000 mcg capsule ascorbic acid (vitamin C) 500 mg 500 mg PO DAILY 06/19/23 07/15/23 tablet (Vitamin C) cholecalciferol (vitamin D3) 125 125 mcg PO DAILY 06/19/23 07/15/23 mcg (5,000 unit) tablet (Vitamin D3) guaifenesin 600 mg tablet, 600 mg PO Q12H 06/19/23 07/15/23 extended release 12 hr (Mucinex) melatonin 10 mg tablet 20 mg PO HS 06/19/23 07/15/23 sennosides 8.6 mg-docusate sodium 2 tab-cap PO BID 06/19/23 07/15/23 50 mg tablet (Senna Plus) zinc 50 mg tablet 50 mg PO DAILY 06/19/23 07/15/23 Previous Rx's Medication Instructions Recorded digoxin 125 mcg (0.125 mg) tablet 125 mcg PO QPM #90 tabs 10/24/22 cyclobenzaprine 10 mg tablet 10 mg PO TID PRN muscle spasm #30 02/27/23 tabs duloxetine 30 mg capsule,delayed 30 mg PO DAILY #30 caps 06/21/23 release ketoconazole 2 % topical cream 1 applic EXT TID PRN rash under 06/21/23 skin folds #15 grams cefadroxil 500 mg capsule 500 mg PO BID #1 cap 07/11/23 metoprolol succinate 50 mg 50 mg PO BID #60 tabs 08/22/23 tablet,extended release 24 hr lisinopril 2.5 mg tablet 2.5 mg PO DAILY #30 tabs 08/23/23 buspirone 10 mg tablet 10 mg PO TID #270 tabs 10/07/23 ropinirole 0.25 mg tablet 0.25 mg PO HS #90 tabs 10/07/23 apixaban 5 mg tablet (Eliquis) 5 mg PO BID 90 days #180 tabs 10/26/23 furosemide 20 mg tablet (Lasix) 20 mg PO DAILY edema #90 tabs 11/20/23 omeprazole 20 mg tablet,delayed 20 mg PO DAILY #90 tabs 11/20/23 release levothyroxine 75 mcg tablet 75 mcg PO DAILY #90 tabs 01/25/24 Results & Data (ED) Vital Signs Vital Signs - 24 hr 04/07/24 15:20 04/07/24 15:20 04/07/24 15:38 Pulse Rate 116 H 127 H Pulse Rate [Apical] 116 H Pulse Rhythm Irregular Pulse Rhythm [Apical] Irregular Pulse Strength Normal Pulse Strength [Apical] Normal Respiratory Rate 22 22 Respiratory Effort / Characteristics Spontaneous Labored Respiratory Depth Normal Respiratory Pattern Regular Blood Pressure 112/78 Blood Pressure [Left Arm] 112/78 Blood Pressure Mean 89 Blood Pressure Mean [Left Arm] 89 Blood Pressure Position Lying Blood Pressure Position [Left Arm] Lying Sepsis Recent Fever Within 48 Hours No Sepsis New/Unexplained Change in Mental Status No Sepsis Action Taken by Nursing No Action Required Laboratory Data 04/09/24 07:36 04/09/24 07:36 Lab Results 04/07/24 04/07/24 Range/Units 15:40 20:33 WBC 11.58 H (4.8-10.8) K/ul RBC 5.24 (4.20-5.40) M/uL Hgb 9.7 L (12.0-16.0) g/dl Hct 30.9 L (37.0-47.0) % MCV 59.0 L (80.0-100.0) fL MCH 18.5 L (25.0-34.0) pg MCHC 31.4 L (32.0-36.0) g/dL RDW Std Deviation 30.4 L (36.4-46.3) fL RDW Coeff of Fredrick 15.3 H (11.5-14.5) % Plt Count 419 H (130-400) K/uL MPV 9.2 L (9.4-12.4) fL Immature Gran % (Auto) 0.3 % Neut % (Auto) 82.4 % Lymph % (Auto) 12.3 % Preble % (Auto) 4.5 % Eos % (Auto) 0.2 % Baso % (Auto) 0.3 % Neut # (Auto) 9.56 H (1.40-6.50) K/uL Lymph # (Auto) 1.42 (1.20-3.40) K/uL Preble # (Auto) 0.52 (0.11-0.59) K/uL Eos # (Auto) 0.02 (0.00-0.50) K/uL Baso # (Auto) 0.03 (0.00-0.20) K/uL Immature Gran # (Auto) 0.03 (0.01-0.20) K/uL Absolute Nucleated RBC 0.06 (0.00-0.12) K/uL Nucleated RBC % (auto) 0.5 % Anisocytosis Present Target Cells 2+ PT 10.4 (9.0-12.0) Seconds INR 1.0 (0.9-1.1) Sodium 130 L (136-145) mmol/L Potassium 4.1 (3.5-5.1) mmol/L Chloride 94 L (98-107) mmol/L Carbon Dioxide 25 (21-32) mmol/L Anion Gap 11 (3-11) BUN 17 (6-23) mg/dl Creatinine 0.69 (0.6-1.2) mg/dl Est Cr Clr Drug Dosing 87.5 ml/min eGFR 98.68 BUN/Creatinine Ratio 24.6 H (10-20) Glucose 137 H (70-99(Fasting)) mg/dl Lactate 3.0 H* (0.4-2.0) mmol/L Calcium 9.6 (8.6-10.3) mg/dl Magnesium 1.7 (1.7-2.4) mg/dl Total Bilirubin 1.0 (0.2-1.0) mg/dl AST 19 (13-39) U/L ALT 18 (7-52) U/L Alkaline Phosphatase 122 H (34-104) U/L Total Protein 7.8 (6.0-8.3) gm/dl Albumin 4.1 (3.4-5.0) gm/dl Globulin 3.7 (2.5-4.0) gm/dl Albumin/Globulin Ratio 1.1 (0.9-2) Lipase 19 (11-82) U/L Digoxin < 0.3 L (0.8-2.0) ng/ml Administered Medications Sodium Chloride (Nss) 1,000 mls @ 85 mls/hr IV .[id number] [facility] Stop: 05/07/24 20:29 Last Admin: 04/09/24 03:23 Dose: 85 mls/hr Documented By: Infusion: 04/09/24 02:53 Dose: Infused Documented By: Admin: 04/08/24 15:07 Dose: 85 mls/hr Documented By: Infusion: 04/08/24 14:36 Dose: Infused Documented By: Infusion: 04/08/24 08:06 Dose: 85 mls/hr Documented By: Admin: 04/08/24 04:31 Dose: 125 mls/hr Documented By: ASSOCIATE FIELD SERVICE ENGINEER Infusion: 04/08/24 04:31 Dose: Infused Documented By: ASSOCIATE FIELD SERVICE ENGINEER Admin: 04/07/24 23:42 Dose: 125 mls/hr Documented By: PIPE Piperacillin Sod/Tazobactam Sod (Zosyn) 4.5 gm in 100 mls @ 25 mls/hr IV Q8H [facility]; Protocol Stop: 04/18/24 03:59 Last Admin: 04/09/24 03:00 Dose: 25 mls/hr Documented By: Infusion: 04/09/24 01:51 Dose: Infused Documented By: Admin: 04/08/24 21:30 Dose: 25 mls/hr Documented By: Infusion: 04/08/24 15:53 Dose: Infused Documented By: Admin: 04/08/24 12:45 Dose: 25 mls/hr Documented By: Infusion: 04/08/24 07:20 Dose: Infused Documented By: Admin: 04/08/24 03:20 Dose: 25 mls/hr Documented By: PIPE Pantoprazole Sodium 40 mg/ (Syringe) 10 mls @ 5 mls/min IV DAILY@1100 [facility] Stop: 05/08/24 10:59 Last Admin: 04/09/24 08:21 Dose: 5 mls/min Documented By: Admin: 04/08/24 11:05 Dose: 5 mls/min Documented By: BALJIT Amiodarone HCl/Dextrose (Nexterone / D5w) 360 mg in 200 mls @ 16.667 mls/hr IV .Q12H [facility] Stop: 05/08/24 13:44 Last Infusion: 04/09/24 06:57 Dose: 0.5 mg/min, 16.7 mls/hr Documented By: EVERTON Co-signed By: MARLEE Admin: 04/09/24 01:52 Dose: 0.5 mg/min, 16.7 mls/hr Documented By: MARLEE Co-signed By: PIPE Infusion: 04/09/24 01:52 Dose: Infused Documented By: MARLEE Co-signed By: PIPE Infusion: 04/08/24 19:10 Dose: 0.5 mg/min, 16.7 mls/hr Documented By: BALJIT Co-signed By: MARLEE Admin: 04/08/24 13:57 Dose: 0.5 mg/min, 16.7 mls/hr Documented By: BALJIT Co-signed By: REBECCA Acetaminophen (Ofirmev) 1,000 mg in 100 mls @ 400 mls/hr IV Q8H [facility] Stop: 04/11/24 07:59 Last Admin: 04/09/24 08:21 Dose: 400 mls/hr Documented By: Infusion: 04/08/24 23:49 Dose: Infused Documented By: Admin: 04/08/24 23:13 Dose: 400 mls/hr Documented By: Infusion: 04/08/24 15:49 Dose: Infused Documented By: Admin: 04/08/24 15:35 Dose: 400 mls/hr Documented By: Admin: 04/08/24 08:06 Dose: Not Given Documented By: BALJIT Insulin Aspart (Insulin Aspart Per Unit Charge) 0 units SC Q6 [facility] Stop: 05/08/24 00:00 Last Admin: 04/09/24 05:35 Dose: Not Given Documented By: MARLEE Co-signed By: DAE Admin: 04/09/24 00:27 Dose: Not Given Documented By: MARLEE Co-signed By: DAE Admin: 04/08/24 17:02 Dose: Not Given Documented By: Admin: 04/08/24 11:45 Dose: Not Given Documented By: Admin: 04/08/24 07:29 Dose: Not Given Documented By: Admin: 04/08/24 00:28 Dose: Not Given Documented By: PIPE Metoprolol Tartrate (Metoprolol Tartrate 1 Mg/Ml Vial) 5 mg IV Q4 PRN PRN Reason: sbp > 185, dbp >95, HR >120 Stop: 05/08/24 11:33 Last Admin: 04/09/24 08:22 Dose: 5 mg Documented By: Admin: 04/08/24 22:59 Dose: 5 mg Documented By: Admin: 04/08/24 18:07 Dose: 5 mg Documented By: Admin: 04/08/24 11:42 Dose: 5 mg Documented By: BALJIT Metoprolol Tartrate (Metoprolol Tartrate 25 Mg Tab) 12.5 mg PO BID [facility] Stop: 05/08/24 20:59 Last Admin: 04/09/24 08:21 Dose: 12.5 mg Documented By: Admin: 04/08/24 21:01 Dose: 12.5 mg Documented By: MARLEE Morphine Sulfate (Morphine Sulfate 4 Mg/Ml 1 Ml Carp\\Vial) 4 mg IV Q3H PRN PRN Reason: Severe Pain (Scale 7, 8, 9,10) Stop: 04/22/24 07:57 Last Admin: 04/09/24 08:22 Dose: 4 mg Documented By: Admin: 04/09/24 03:35 Dose: 4 mg Documented By: Admin: 04/08/24 19:42 Dose: 4 mg Documented By: Admin: 04/08/24 15:45 Dose: 4 mg Documented By: Admin: 04/08/24 12:45 Dose: 4 mg Documented By: Admin: 04/08/24 08:11 Dose: 4 mg Documented By: BALJIT Ondansetron HCl (Ondansetron Inj 2 Mg/Ml 2 Ml Vial) 4 mg IV Q6H PRN PRN Reason: Nausea Stop: 05/07/24 23:24 Last Admin: 04/09/24 08:22 Dose: 4 mg Documented By: EVERTON Oxycodone HCl (Oxycodone Hcl Ir 5 Mg Tab (Immediate Release)) 10 mg PO Q4H PRN PRN Reason: Severe Pain (Scale 7, 8, 9,10) Stop: 04/22/24 10:56 Last Admin: 04/09/24 10:59 Dose: 10 mg Documented By: Admin: 04/09/24 04:32 Dose: 10 mg Documented By: Admin: 04/08/24 22:14 Dose: 10 mg Documented By: Admin: 04/08/24 15:07 Dose: 10 mg Documented By: Admin: 04/08/24 11:04 Dose: 10 mg Documented By: BALJIT Discontinued Medications Bupivacaine HCl/Epinephrine Bitart (Bupivacaine/Epinephrine 0.5% Mpf 1:200,000 30 Ml Vial) Confirm Administered Dose 30 ml .ROUTE .STK-MED ONE Stop: 04/07/24 20:39 Last Admin: 04/07/24 22:10 Dose: Not Given Documented By: DEBI Dicyclomine HCl (Dicyclomine Hcl 10 Mg/Ml 2 Ml Amp/Vial) 20 mg IM NOW ONE Stop: 04/07/24 16:23 Last Admin: 04/07/24 16:30 Dose: 20 mg Documented By: Fentanyl Citrate (Fentanyl Citrate Pf 100 Mcg/2 Ml Vial) 25 mcg IV Q5M PRN PRN Reason: PACU Use Only-Pain Stop: 04/08/24 04:35 Last Admin: 04/07/24 22:50 Dose: 25 mcg Documented By: Admin: 04/07/24 22:45 Dose: 25 mcg Documented By: CHRISTEN Fentanyl Citrate (Fentanyl Citrate Pf 100 Mcg/2 Ml Vial) Confirm Administered Dose 100 mcg .ROUTE .STK-MED ONE Stop: 04/07/24 22:49 Last Admin: 04/07/24 23:32 Dose: Not Given Documented By: CARMITA Hydromorphone HCl (Hydromorphone Inj 0.5 Mg/0.5 Ml Syr) 0.25 mg IV NOW STA Stop: 04/07/24 20:36 Last Admin: 04/08/24 00:15 Dose: Not Given Documented By: PIPE Hydromorphone HCl (Hydromorphone Inj 0.5 Mg/0.5 Ml Syr) 0.25 mg IV Q3H PRN PRN Reason: Pain Stop: 04/22/24 00:36 Last Admin: 04/08/24 06:35 Dose: 0.25 mg Documented By: Admin: 04/08/24 03:12 Dose: 0.25 mg Documented By: Admin: 04/08/24 00:52 Dose: 0.25 mg Documented By: PIPE Acetaminophen (Ofirmev) 1,000 mg in 100 mls @ 400 mls/hr IV NOW STA Stop: 04/07/24 15:59 Last Infusion: 04/07/24 16:28 Dose: Infused Documented By: Admin: 04/07/24 15:51 Dose: 400 mls/hr Documented By: Pantoprazole Sodium 40 mg/ (Syringe) 10 mls @ 5 mls/min IV NOW ONE Stop: 04/07/24 15:46 Last Admin: 04/07/24 17:36 Dose: 5 mls/min Documented By: Sodium Chloride (Nss) 500 mls @ 999 mls/hr IV .Q31M ONE Stop: 04/07/24 18:11 Last Infusion: 04/07/24 20:19 Dose: Infused Documented By: Admin: 04/07/24 19:13 Dose: 999 mls/hr Documented By: ARMAAN Famotidine (Pepcid 20mg Iv Push) 20 mg in 5 mls @ 2.5 mls/min IV NOW STA Stop: 04/07/24 17:44 Last Admin: 04/07/24 19:12 Dose: 2.5 mls/min Documented By: ARMAAN Magnesium Sulfate/Dextrose (Magnesium Sulfate / D5w) 1 gm in 100 mls @ 200 mls/hr IV Q30M [facility] Stop: 04/07/24 20:31 Last Infusion: 04/07/24 23:31 Dose: Infused Documented By: Admin: 04/07/24 20:27 Dose: 100 mls/hr Documented By: Infusion: 04/07/24 20:19 Dose: Infused Documented By: Admin: 04/07/24 19:37 Dose: 200 mls/hr Documented By: NRB Digoxin 125 mcg/ Syringe 10 mls @ 2 mls/min IV NOW STA Stop: 04/07/24 19:38 Last Admin: 04/07/24 20:11 Dose: 2 mls/min Documented By: ARMAAN Prothrombin Complex Concent ( (Human) 2,000 units/ Syringe) 80 mls @ 10 mls/min IV TODAY@2024 [facility]; Protocol Stop: 04/07/24 20:45 Last Admin: 04/07/24 20:37 Dose: 10 mls/min Documented By: ARMAAN Digoxin 125 mcg/ Syringe 10 mls @ 2 mls/min IV NOW STA Stop: 04/07/24 21:18 Last Admin: 04/08/24 00:16 Dose: Not Given Documented By: PIPE Piperacillin Sod/Tazobactam Sod (Zosyn) 4.5 gm in 100 mls @ 200 mls/hr IV NOW ONE; Protocol Stop: 04/07/24 21:44 Last Infusion: 04/07/24 23:30 Dose: Infused Documented By: Admin: 04/07/24 21:13 Dose: 200 mls/hr Documented By: [id number] Acetaminophen ([facility]) 1,000 mg in 100 mls @ 400 mls/hr IV Q8H PRN PRN Reason: Moderate Pain (Scale 4, 5, 6) Stop: 04/10/24 23:24 Last Infusion: 04/08/24 08:11 Dose: Infused Documented By: Admin: 04/08/24 07:56 Dose: 400 mls/hr Documented By: Infusion: 04/07/24 23:57 Dose: Infused Documented By: Admin: 04/07/24 23:42 Dose: 400 mls/hr Documented By: PIPE Amiodarone HCl/Dextrose (Nexterone / D5w) 150 mg in 100 mls @ 600 mls/hr IV NOW STA Stop: 04/08/24 07:45 Last Infusion: 04/08/24 08:04 Dose: Infused Documented By: BALJIT Co-signed By: (2) Admin: 04/08/24 07:53 Dose: 600 mls/hr Documented By: BALJIT Co-signed By: NAVEEN Amiodarone HCl/Dextrose (Nexterone / D5w) 360 mg in 200 mls @ 33.333 mls/hr IV ONE ONE Stop: 04/08/24 13:45 Last Infusion: 04/08/24 13:57 Dose: Infused Documented By: BALJIT Co-signed By: JONNY Admin: 04/08/24 08:06 Dose: 1 mg/min, 33.3 mls/hr Documented By: BALJIT Co-signed By: (2) Digoxin 250 mcg/ Syringe 10 mls @ 2 mls/min IV NOW STA Stop: 04/08/24 16:37 Last Admin: 04/08/24 16:59 Dose: 2 mls/min Documented By: BALJIT Magnesium Sulfate/Dextrose (Magnesium Sulfate / D5w) 1 gm in 100 mls @ 50 mls/hr IV Q2H [facility] Stop: 04/08/24 22:44 Last Infusion: 04/09/24 01:39 Dose: Infused Documented By: Admin: 04/08/24 22:58 Dose: 50 mls/hr Documented By: Infusion: 04/08/24 22:58 Dose: Infused Documented By: Admin: 04/08/24 21:03 Dose: 50 mls/hr Documented By: MARLEE Ioversol (Optiray 320 100ml) 91 ml IV ONCE ONE Stop: 04/07/24 18:24 Last Admin: 04/07/24 18:24 Dose: 91 ml Documented By: CRYSTAL Metoprolol Tartrate (Metoprolol Tartrate 1 Mg/Ml Vial) 5 mg IV NOW STA Stop: 04/07/24 19:06 Last Admin: 04/07/24 19:09 Dose: 5 mg Documented By: ARMAAN Metoprolol Tartrate (Metoprolol Tartrate 1 Mg/Ml Vial) 5 mg IV NOW STA Stop: 04/07/24 19:21 Last Admin: 04/07/24 19:33 Dose: 5 mg Documented By: LEMUEL Metoprolol Tartrate (Metoprolol Tartrate 1 Mg/Ml Vial) 5 mg IV NOW STA Stop: 04/08/24 04:12 Last Admin: 04/08/24 04:31 Dose: 5 mg Documented By: PIPE Morphine Sulfate (Morphine Sulfate 4 Mg/Ml 1 Ml Carp\\Vial) 4 mg IV NOW STA Stop: 04/07/24 17:29 Last Admin: 04/07/24 17:36 Dose: 4 mg Documented By: Morphine Sulfate (Morphine Sulfate 4 Mg/Ml 1 Ml Carp\\Vial) 4 mg IV Q2H PRN PRN Reason: Pain Stop: 04/21/24 19:18 Last Admin: 04/07/24 19:34 Dose: 4 mg Documented By: LEMUEL Ondansetron HCl (Ondansetron 4 Mg Od Tab) 4 mg PO NOW STA Stop: 04/07/24 15:46 Last Admin: 04/07/24 15:51 Dose: 4 mg Documented By: MSG Discharge Plan Visit Data Chief Complaint: Abdominal Pain Stated Complaint: ABD PAIN ED Provider: Nghia Zelaya Discharge Problem: Abdominal pain, Nausea & vomiting Patient Disposition: Admitted As Inpatient Discharge Instructions Interventions: ED Discharge Assessment Last Done: 04/07/24 20:30
[2024-04-07] MEDS: ONDANSETRON 4 MG OD TAB PO STA (15:51)
[2024-04-07] MEDS: ACETAMINOPHEN 1,000 MG/100 ML VIAL IV STA (15:51)
[2024-04-07 16:01] LABS: Basophils # (auto) 0.03 K/uL (0.00-0.20); Basophils % (auto) 0.3 %; Eosinophils # (auto) 0.02 K/uL (0.00-0.50); Eosinophils % (auto) 0.2 %; Hematocrit (blood only) 30.9 % (37.0-47.0); Hemoglobin 9.7 g/dl (12.0-16.0); Immature Granulocytes # (auto) 0.03 K/uL (0.01-0.20); Immature Granulocytes % (auto) 0.3 %; Lymphocytes # (auto) 1.42 K/uL (1.20-3.40); Lymphocytes % (auto) 12.3 %; Mean Corpuscular Hemoglobin 18.5 pg (25.0-34.0); Mean Corpuscular Hgb Conc 31.4 g/dL (32.0-36.0); Monocytes # (auto) 0.52 K/uL (0.11-0.59); Monocytes % (auto) 4.5 %; Neutrophils # (auto) 9.56 K/uL (1.40-6.50); Neutrophils % (auto) 82.4 %; Nucleated RBC # (auto) 0.06 K/uL (0.00-0.12); Nucleated RBC % (auto) 0.5 %; RDW Coefficient of Variation 15.3 % (11.5-14.5); RDW Standard Deviation 30.4 fL (36.4-46.3); Red Blood Count 5.24 M/uL (4.20-5.40); White Blood Count 11.58 K/ul (4.8-10.8)
[2024-04-07 16:09] LABS: Mean Platelet Volume 9.2 fL (9.4-12.4); Platelet Count 419 K/uL (130-400)
[2024-04-07 16:15] LABS: Albumin Globulin Ratio 1.1 (0.9-2); Albumin Level 4.1 gm/dl (3.4-5.0); BUN Creatinine Ratio 24.6 (10-20); Calcium 9.6 mg/dl (8.6-10.3); Creatinine Clr Calc Pharmacy 87.5 ml/min; Globulin 3.7 gm/dl (2.5-4.0); Magnesium 1.7 mg/dl (1.7-2.4); Potassium 4.1 mmol/L (3.5-5.1); Total Protein 7.8 gm/dl (6.0-8.3)
--- NOTE | 2024-04-07 16:25 | Electrocardiogram Report ---
Test Reason : Blood Pressure : */* mmHG Vent. Rate : 116 BPM Atrial Rate : 394 BPM P-R Int : * ms QRS Dur : 76 ms QT Int : 300 ms P-R-T Axes : -87 98 65 degrees QTcB Int : 417 ms Atrial fibrillation with rapid ventricular response Rightward axis Abnormal ECG When compared with ECG of 09-Jul-2023 03:09, Vent. rate has decreased by 57 bpm Confirmed by Jhonathan Reyes ([id number]) on 04/07/2024 4:24:49 PM Referred By: Confirmed By: Jhonathan Reyes
[2024-04-07] MEDS: DICYCLOMINE HCL 10 MG/ML 2 ML AMP/VIAL IM ONE (16:30)
[2024-04-07 16:31] LABS: Anisocytosis Present; Target Cells 2+
[2024-04-07 16:43] LABS: Prothrombin Time 10.4 Seconds (9.0-12.0)
[2024-04-07] MEDS: MoRPHine SULFATE 4 MG/ML 1 ML CARP\\VIAL IV STA (17:36)
[2024-04-07] MEDS: PANTOprazole 40 MG in SYRINGE 0 ML IV ONE (17:36)
[2024-04-07] MEDS: OPTIRAY 320 100ml IV ONE (18:24)
--- NOTE | 2024-04-07 18:36 | XRay Report ---
KUB CLINICAL HISTORY: Generalized abdominal pain. FINDINGS: 3 AP, portable, supine abdominal radiographs are compared to study dated 01/14/2015 and addison elated with abdominal CT dated 03/20/2023. Distended gas-filled loops of small bowel in the central ab domen measure up to 3.4 cm. No evidence of intraperitoneal free air is seen on these supine images. S uture material projects over the left mid abdomen. Cholecystectomy clips are noted in the right upper quadrant. There are no abnormal abdominal calcifications. The right proximal femur surgically absent . A left hip arthroplasty is in place. The heart is enlarged. IMPRESSION: There is evidence of a small bowel obstruction. Correlate clinically. Electronically signed by: Gregor Rosario M.D. 04/07/2024 6:34 PM
[2024-04-07] MEDS: METOPROLOL TARTRATE 1 MG/ML VIAL IV STA ×2 (19:09→19:33)
[2024-04-07] MEDS: FAMOTIDINE 20MG IV PUSH 20 MG/5 ML SYR IV STA (19:12)
[2024-04-07] MEDS: SODIUM CHLORIDE 0.9% 500 ML IV ONE (19:13)
[2024-04-07] MEDS: MoRPHine SULFATE 4 MG/ML 1 ML CARP\\VIAL IV PRN (19:34)
[2024-04-07] MEDS: MAGNESIUM SULFATE / D5W 1 GM/100 ML BAG IV SCH (19:37)
--- NOTE | 2024-04-07 19:55 | CT Scan Report ---
Exam(s): CT ABDOMEN + PELVIS With Contrast IV Amt: 91 cc opti 320 EXAM: CT Abdomen and Pelvis With Intravenous Contrast CLINICAL HISTORY: Reason for exam: abd pain, n/v. TECHNIQUE: Axial computed tomography images of the abdomen and pelvis with intravenous contrast. CTDI is 21.5 mGy and DLP is 1000 mGy-cm. Automated exposure control was utilized for the study. A dose lowering technique was utilized adhering to the principles of ALARA. CONTRAST: Patient received 91 cc Optiray 320 of IV contrast COMPARISON: No relevant prior studies available. FINDINGS: Lung bases: Unremarkable. No mass. No consolidation. Heart: Mild cardiomegaly and moderate mitral calcification. ABDOMEN: Liver: The liver is enlarged measuring 22 cm craniocaudad. No focal liver mass lesion is seen. Gallbladder and bile ducts: Slight biliary duct prominence postcholecystectomy. The common bile duct is nondilated. No choledocholithiasis is identified. Pancreas: Unremarkable. No mass. No ductal dilation. Spleen: Unremarkable. No splenomegaly. Adrenals: Unremarkable. No mass. Kidneys and ureters: Unremarkable. No solid mass. No hydronephrosis. Stomach and bowel: Staple lines along the stomach and proximal small bowel from previous gastric bypass surgery. The proximal small bowel loops are unremarkable. PELVIS: Appendix: The appendix is normal. There is mild diverticulosis of the colon without evidence of diverticulitis. Bladder: Unremarkable. No mass. Reproductive: Unremarkable as visualized. ABDOMEN and PELVIS: Intraperitoneal space: There are several loops of mildly dilated and inflamed small bowel in the anterior pelvis which demonstrate wall thickening and surrounding edema with small pockets of free fluid. This appears to be associated with an unusual twisting the mesentery and abrupt diameter change suggesting internal hernia or closed loop obstruction. No free air. Bones/joints: There is metallic artifact from a left hip arthroplasty. The proximal right femur is absent. The prior right hip arthroplasty has been removed. No acute fracture. No dislocation. Soft tissues: Unremarkable. Vasculature: The abdominal aorta is mildly calcified but nondilated. Lymph nodes: Unremarkable. No enlarged lymph nodes. IMPRESSION: There are several loops of mildly dilated and severely inflamed small bowel in the anterior pelvis which demonstrate wall thickening and surrounding edema with small pockets of free fluid. This appears to be associated with an unusual twist in the mesentery and abrupt diameter change suggesting internal hernia or closed loop obstruction. This is best appreciated on the coronal reformatted images. Communications: Call Doctor Above results Electronically signed by: Pascual Osullivan MD 04/07/24 19:54 PM
[2024-04-07] MEDS: DIGOXIN 125 MCG in SYRINGE 9.5 ML IV STA (20:11)
[2024-04-07] MEDS ORDERED: PIPERACILLIN/TAZOBACTAM 4.5 GM/100 ML BAG IV ONE (20:22)
[2024-04-07] MEDS ORDERED: LABETALOL HCL IV 5 MG/ML 20ML IV PRN (20:34)
[2024-04-07] MEDS ORDERED: ATROPINE SULFATE 0.1 MG/ML 10ML SYR IV PRN (20:34)
[2024-04-07] MEDS ORDERED: ONDANSETRON INJ 2 MG/ML 2 ML VIAL IV PRN (20:34)
[2024-04-07] MEDS ORDERED: ePHEDrine sulfate 50 MG/ML AMP IV PRN (20:34)
--- NOTE | 2024-04-07 20:34 | Anesthesiology Consultation ---
Date of Service April 07, 2024 Assessment & Plan (1) Encounter for pre-operative examination: Chart Review Chart Review: Patient NOT seen in Pre Admission Testing emergent procedure Consults Requested none History Surgery Operation Date: 04/07/24 21:30 Proposed Procedures p Laparoscopic Hernia Repair - Judd Campuzano DO s Exploratory Laparotomy - DO ramona Deluca Bowel Resection - Judd Campuzano DO Height/Weight Height: 5 ft 5 in Weight: 76.4 kg Allergies Allergy/AdvReac Type Severity Reaction Status Date / Time hylan G-F 20 Allergy Severe CAN'T Verified 08/22/23 13:49 REMEMBER mushroom Allergy Intermediate RASH Verified 08/22/23 13:49 Medications Home Medications Medication Instructions Recorded Confirmed Last Taken acetaminophen 500 mg tablet 1,000 mg PO Q8 Pain 10/11/22 07/15/23 10/16/22 (Tylenol Extra Strength) [id number] acid 0.4 1 tab PO QAM 10/11/22 07/15/23 03/01/23 mg-lycopene 300 mcg-lutein 250 mcg tablet (Centrum Silver) polyethylene glycol 3350 17 gram 17 g PO BID PRN Constipation 10/11/22 07/15/23 10/16/22 oral powder packet (Miralax) digoxin 125 mcg (0.125 mg) tablet 125 mcg PO QPM #90 tabs 10/24/22 07/15/23 03/01/23 doxepin 100 mg capsule 100 mg PO HS 01/23/23 07/15/23 03/01/23 cyclobenzaprine 10 mg tablet 10 mg PO TID PRN muscle spasm #30 02/27/23 07/15/23 Unknown tabs cyanocobalamin (vitamin B-12) 1,000 mcg PO QAM 04/01/23 07/15/23 Unknown 1,000 mcg capsule ascorbic acid (vitamin C) 500 mg 500 mg PO DAILY 06/19/23 07/15/23 Unknown tablet (Vitamin C) cholecalciferol (vitamin D3) 125 125 mcg PO DAILY 06/19/23 07/15/23 Unknown mcg (5,000 unit) tablet (Vitamin D3) guaifenesin 600 mg tablet, 600 mg PO Q12H 06/19/23 07/15/23 Unknown extended release 12 hr (Mucinex) melatonin 10 mg tablet 20 mg PO HS 06/19/23 07/15/23 Unknown sennosides 8.6 mg-docusate sodium 2 tab-cap PO BID 06/19/23 07/15/23 Unknown 50 mg tablet (Senna Plus) zinc 50 mg tablet 50 mg PO DAILY 06/19/23 07/15/23 Unknown duloxetine 30 mg capsule,delayed 30 mg PO DAILY #30 caps 06/21/23 07/15/23 Unknown release ketoconazole 2 % topical cream 1 applic EXT TID PRN rash under 06/21/23 07/15/23 Unknown skin folds #15 grams cefadroxil 500 mg capsule 500 mg PO BID #1 cap 07/11/23 07/15/23 Unknown metoprolol succinate 50 mg 50 mg PO BID #60 tabs 08/22/23 08/22/23 Unknown tablet,extended release 24 hr lisinopril 2.5 mg tablet 2.5 mg PO DAILY #30 tabs 08/23/23 Unknown buspirone 10 mg tablet 10 mg PO TID #270 tabs 10/07/23 Unknown ropinirole 0.25 mg tablet 0.25 mg PO HS #90 tabs 10/07/23 Unknown apixaban 5 mg tablet (Eliquis) 5 mg PO BID 90 days #180 tabs 10/26/23 Unknown furosemide 20 mg tablet (Lasix) 20 mg PO DAILY edema #90 tabs 11/20/23 Unknown omeprazole 20 mg tablet,delayed 20 mg PO DAILY #90 tabs 11/20/23 Unknown release levothyroxine 75 mcg tablet 75 mcg PO DAILY #90 tabs 01/25/24 Unknown Active Medications Generic Name Dose Route Start Last Admin Trade Name Randyq PRN Reason Stop Dose Admin Morphine Sulfate 4 mg 04/07/24 19:19 04/07/24 19:34 Morphine Sulfate 4 Mg/Ml 1 Ml Carp\\Vial IV 04/21/24 19:18 4 mg Q2H PRN Administration Pain NPO Date Last Intake of Fluids: 04/07/24 Time Last Intake of Fluids: 00:01 Date Last Intake of Solids: 04/06/24 Time Last Intake of Solids: 00:00 Past Medical History Medical History Scabies Poor historian History of COVID-19 July 2020 treated at a hospital in [place] for several days. Weight loss, unintentional History of gastric polyp Hypothyroidism Lyme disease hx On anticoagulant therapy Major depression Anxiety Sleep apnea hx -- since weightloss and gastric bypass surgery no problems with PORTILLO. Atrial fibrillation follows with [facility] (Donna Osborne PA-C) dx a year ago. no cardioversions in the past. Acute hyponatremia Pneumonia hx - "years ago" Anemia Iron deficiency anemia GERD (gastroesophageal reflux disease) occasional Chronic heart failure with preserved ejection fraction (HFpEF) PE (pulmonary embolism) 10+ years ago. unsure of cause. Cervical radiculopathy Thalassemia (Unknown) Arthroplasty of knee (Unknown) "bilateral " Past Family History Family History Father Colorectal cancer Mother Diabetes Other FHx: throat cancer No family history of adverse response to anesthesia Denies family history of Ovarian cancer Prostate cancer Myocardial infarction Breast cancer Past Surgical History Surgical History History of section S/P revision of total hip History of bilateral knee arthroplasty History of esophagogastroduodenoscopy (EGD) History of colonoscopy History of cholecystectomy Status post hip surgery R HIP REPLACEMENT REMOVED DUE TO INFX History of bilateral hip replacements Social History Smoking Status: Current every day smoker tobacco type: cigarettes Do You Dip or Chew Tobacco: No Hx Alcohol Use: Yes Alcohol type: wine alcohol intake frequency: other Hx Substance Use: Yes substance use type: marijuana Substance Use Type Other:: medical marijuana Physical Exam Vital Signs Last Vital Signs Pulse 135 H 04/07/24 20:11 Resp 18 04/07/24 20:03 BP 160/127 H 04/07/24 20:16 Pulse Ox 96 04/07/24 20:03 O2 Del Method Room Air 04/07/24 20:00 Testing Laboratory Results 04/07/24 15:40 04/07/24 15:40 PT 10.4 Seconds (9.0-12.0) 04/07/24 15:40 INR 1.0 (0.9-1.1) 04/07/24 15:40 Electrocardiogram Date: 04/07/24 Findings: + AFIB @
[2024-04-07] MEDS: KCENTRA (1000unit vial) 2000 units IVP IV SCH (20:37)
[2024-04-07] MEDS ORDERED: DEXAMETHASONE SOD INJ 4 MG/ML VIAL ONE (20:38)
[2024-04-07] MEDS ORDERED: fentaNYL citrate PF 100 MCG/2 ML VIAL ONE (20:38)
[2024-04-07] MEDS ORDERED: SUCCINYLCHOLINE CHLORIDE 20 MG/ML 10 ML VIAL IV ONE (20:38)
[2024-04-07] MEDS ORDERED: ONDANSETRON INJ 2 MG/ML 2 ML VIAL ONE (20:38)
[2024-04-07] MEDS ORDERED: PROPOFOL IV EMULSION 10 MG/ML 20 ML VIAL IV ONE (20:38)
[2024-04-07] MEDS ORDERED: ROCURONIUM BROMIDE 10 MG/ML 5 ML VIAL IV ONE (20:38)
[2024-04-07] MEDS ORDERED: LIDOCAINE 2% 2 ML VIAL/AMP(20MG/ML) INFIL ONE (20:38)
--- NOTE | 2024-04-07 20:39 | Surgery Consultation ---
Date of Consultation April 07, 2024 Assessment & Plan (1) Abdominal pain: I discussed with the treating emergency room physician and the patient was evaluated in room C12. The patient is being admitted on the hospitalist service. From surgery perspective we plan on the following: There is concern the patient has either closed-loop obstruction or internal hernia and she will require exploratory surgery. We are tentatively planning on exploratory laparoscopy with possible laparotomy and surgery as needed with Dr. Campuzano this evening. As the patient has taken Eliquis the evening of 04/06/[address] Quezada, and the patient is going to receive prothrombin complex concentrates this evening prior to surgery do We will initiate antibiotics in the form of Zosyn Will continue hydration measures with intravenous fluids Patient does have a history of atrial fibrillation I did discuss with the medical service and her electrolytes are being supplemented and her digoxin is being supplemented as well. Additional recommendations will be forthcoming based on operative findings and the patient's postoperative recovery thereafter. as above. pain for [address] concerning for possible closed loop obstruction. discussed findings. recommend urgent OR for laparoscopy/possible open surgery as needed. discussed risks. questions answered. agrees with plan. prothrombin complex concentrates given at advice of Dr. Ayers. History of Present Illness Reason for Consultation: Abdominal pain, concern for internal hernia History of Present Illness This is a 63-year-old female who presented to the emergency department secondary abdominal pain. She notes that the pain is located throughout her abdomen in a generalized fashion without mitigating factors. She has had associated nausea and vomiting. She notes that she did have a bowel movement yesterday but does not have any since. She also notes that she has not been passing any flatus since yesterday. She notes that she has not had anything solid to eat in greater than 24 hours and has not had any liquids since midnight on 04/06/2024. Patient says that she has had prior abdominal surgeryshe has had a hysterectomy and she has also had a gastric bypass (this gastric bypass was performed approximate 20 years ago at [facility] in [facility]). Patient also notes a history of atrial fibrillation for which she takes Eliquis. She did take her most recent dose of Eliquis the evening of 04/06/2024. Since arrival to the hospital the patient had a CT scan abdomen pelvis which showed several loops of dilated and inflamed small bowel in the anterior pelvis with wall thickening and surrounding edema. There is an associated unusual twisting of the mesentery in this order which raise a concern for internal hernia or closed-loop obstruction. Labs included CBC white blood cell count was elevated 11.5. Hemoglobin and hematocrit were 9.7 and 30.9. Platelet count was 419,000. Chemistry profile showed sodium was 130 with a potassium of 4.1. Magnesium was 1.7. Her BUN and creatinine were both within the normal range and not elevated. Her bilirubin, transaminases, and lipase were not elevated. There is a slight elevation of her alkaline phosphatase at 122. A digoxin level was checked and was low at 0.3. At the time of my interview the patient continued to complain of abdominal pain. Allergies Allergy/AdvReac Type Severity Reaction Status Date / Time cely G-F 20 Allergy Severe CAN'T Verified 08/22/23 13:49 REMEMBER mushroom Allergy Intermediate RASH Verified 08/22/23 13:49 Home Medications Medication Instructions Recorded Confirmed Type acetaminophen 500 mg tablet 1,000 mg PO Q8 Pain 10/11/22 07/15/23 History (Tylenol Extra Strength) [id number]-fbb-nbabf acid 0.4 1 tab PO QAM 10/11/22 07/15/23 History mg-lycopene 300 mcg-lutein 250 mcg tablet (Centrum Silver) polyethylene glycol 3350 17 gram 17 g PO BID PRN Constipation 10/11/22 07/15/23 History oral powder packet (Miralax) digoxin 125 mcg (0.125 mg) tablet 125 mcg PO QPM #90 tabs 10/24/22 07/15/23 Rx doxepin 100 mg capsule 100 mg PO HS 01/23/23 07/15/23 History cyclobenzaprine 10 mg tablet 10 mg PO TID PRN muscle spasm #30 02/27/23 07/15/23 Rx tabs cyanocobalamin (vitamin B-12) 1,000 mcg PO QAM 04/01/23 07/15/23 History 1,000 mcg capsule ascorbic acid (vitamin C) 500 mg 500 mg PO DAILY 06/19/23 07/15/23 History tablet (Vitamin C) cholecalciferol (vitamin D3) 125 125 mcg PO DAILY 06/19/23 07/15/23 History mcg (5,000 unit) tablet (Vitamin D3) guaifenesin 600 mg tablet, 600 mg PO Q12H 12/20/23 01/15/24 History extended release 12 hr (Mucinex) melatonin 10 mg tablet 20 mg PO HS 06/19/23 07/15/23 History sennosides 8.6 mg-docusate sodium 2 tab-cap PO BID 06/19/23 07/15/23 History 50 mg tablet (Senna Plus) zinc 50 mg tablet 50 mg PO DAILY 06/19/23 07/15/23 History duloxetine 30 mg capsule,delayed 30 mg PO DAILY #30 caps 06/21/23 07/15/23 Rx release ketoconazole 2 % topical cream 1 applic EXT TID PRN rash under 06/21/23 07/15/23 Rx skin folds #15 grams cefadroxil 500 mg capsule 500 mg PO BID #1 cap 07/11/23 07/15/23 Rx metoprolol succinate 50 mg 50 mg PO BID #60 tabs 08/22/23 08/22/23 Rx tablet,extended release 24 hr lisinopril 2.5 mg tablet 2.5 mg PO DAILY #30 tabs 08/23/23 Rx buspirone 10 mg tablet 10 mg PO TID #270 tabs 10/07/23 Rx ropinirole 0.25 mg tablet 0.25 mg PO HS #90 tabs 10/07/23 Rx apixaban 5 mg tablet (Eliquis) 5 mg PO BID 90 days #180 tabs 10/26/23 Rx furosemide 20 mg tablet (Lasix) 20 mg PO DAILY edema #90 tabs 11/20/23 Rx omeprazole 20 mg tablet,delayed 20 mg PO DAILY #90 tabs 11/20/23 Rx release levothyroxine 75 mcg tablet 75 mcg PO DAILY #90 tabs 01/25/24 Rx Patient History Medical History Scabies Poor historian History of COVID-19 July 2020 treated at a hospital in [place] for several days. Weight loss, unintentional History of gastric polyp Hypothyroidism Lyme disease hx On anticoagulant therapy Major depression Anxiety Sleep apnea hx -- since weightloss and gastric bypass surgery no problems with PORTILLO. Atrial fibrillation follows with [facility] Cardiology (Donna Osborne PA-C) dx a year ago. no cardioversions in the past. Acute hyponatremia Pneumonia hx - "years ago" Anemia Iron deficiency anemia GERD (gastroesophageal reflux disease) occasional Chronic heart failure with preserved ejection fraction (HFpEF) PE (pulmonary embolism) 10+ years ago. unsure of cause. Cervical radiculopathy Thalassemia (Unknown) Arthroplasty of knee (Unknown) "bilateral " Surgical History History of section S/P revision of total hip History of bilateral knee arthroplasty History of esophagogastroduodenoscopy (EGD) History of colonoscopy History of cholecystectomy Status post hip surgery R HIP REPLACEMENT REMOVED DUE TO INFX History of bilateral hip replacements Family History Father Colorectal cancer Mother Diabetes Other FHx: throat cancer No family history of adverse response to anesthesia Denies family history of Ovarian cancer Prostate cancer Myocardial infarction Breast cancer Social History Smoking Status: Current every day smoker Tobacco Type: Cigarettes Second Hand Exposure: No; Do You Dip or Chew Tobacco: No; Hx Alcohol Use: Yes Alcohol type: wine Hx Substance Use: Yes Substance Use Type Other:: medical marijuana Preferred Language: Serbian Communication Ability: Impaired Communication Ability Comment: often unable to communicate effectively Visual Impairment: Partially Limited 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: No Beliefs That Will Affect Care: None marital status: Current Living Situation: Alone Current Living Situation Comment: lives alone in apartment, daughter checks on her How many Children do You have: 3 Feels Safe at Home: Yes Diet: regular caffeine: Yes Dental Care, Regularly: No Physical Activity Frequency: Does not Exercise Seatbelt Use: always Sunscreen Use: Yes Assistive Devices: Walker and Wheelchair Review of Systems Review of Systems: All systems reviewed & are unremarkable except as noted in HPI & below Physical Exam Constitutional: well developed, well nourished and + ill appearing Eyes: no conjunctival abnormality ENMT: Ears: no hearing impairment and no external ear abnormality Mouth: no oropharynx abnormality Neck: trachea midline Respiratory: normal respiratory effort; no respiratory distress and no labored breathing Cardiovascular: Rate/Rhythm: + tachycardic and + irregularly irregular Gastrointestinal (Abdomen): Abdomen is overall soft with minimal distention and nonrigid. There is no rebound tenderness or guarding but patient did have diffuse tenderness throughout her abdomen which appear to be greatest in the periumbilical area. Musculoskeletal: No calf tenderness Skin: no rashes Neurologic: moves all extremities Psychiatric: A+Ox3, euthymic affect Results & Data Vital Signs (Past 12 Hours) Vital Signs Pulse Pulse Resp BP BP Pulse Ox O2 Del Method 04/07/24 20:16 160/127 H 04/07/24 20:12 172/137 H 04/07/24 20:11 135 H 04/07/24 20:03 133 H 18 96 04/07/24 20:00 125 H 166/123 H 04/07/24 20:00 131 H 23 166/123 H 96 Room Air 04/07/24 19:47 125 H 20 151/120 H 96 Room Air 04/07/24 19:47 125 H 20 151/120 H 96 Room Air 04/07/24 19:47 125 H 20 151/120 H 96 Room Air 04/07/24 19:33 134 H 20 98 Room Air 04/07/24 19:33 135 H 177/142 H 04/07/24 19:24 152 H 04/07/24 19:21 140 H 13 98 Room Air 04/07/24 19:17 177/142 H 04/07/24 19:17 177/142 H 04/07/24 19:17 146 H 04/07/24 19:17 142 H 18 177/142 H 95 Room Air 04/07/24 19:12 174 H 18 94 Room Air 04/07/24 19:09 145/119 H 04/07/24 19:09 145/119 H 04/07/24 19:09 132 H 145/119 H 04/07/24 19:00 150 H 25 H 04/07/24 18:00 120 H 17 155/109 H 04/07/24 17:30 138 H 23 04/07/24 17:27 133 H 29 H 04/07/24 16:33 123 H 21 04/07/24 16:06 131 H 18 04/07/24 15:38 127 H 04/07/24 15:30 135 H 21 97 04/07/24 15:20 116 H 22 112/78 04/07/24 15:20 116 H 22 112/78 PG Care Time/CCT Total # of Minutes Spent Total Time Spent with Patient: Total time spent is greater than 50% in coordination of care (as documented) at patient's floor/unit and/or counseling patient: Coding Level of Care Code 59182 IN/OBS CONSULT LVL 5,80M Diagnoses Abdominal pain R10.9
--- NOTE | 2024-04-07 20:52 | History & Physical Report ---
Date of Service April 07, 2024 Assessment & Plan (1) Small bowel obstruction: (2) Nausea & vomiting: (3) Abdominal pain: (4) Atrial fibrillation with RVR: (5) Atrial fibrillation, chronic: (6) Hypothyroidism: (7) Warfarin-induced coagulopathy: (8) HTN (hypertension): (9) Generalized anxiety disorder: (10) RLS (restless legs syndrome): (11) H/O gastric bypass: Plan Small bowel obstruction/intractable nausea vomiting/abdominal pain/history of gastric bypass- NPO Zofran 4 mg IV every 6 hours as needed Tylenol 1 g IV every 8 hours as needed for mild pain or fever Zosyn 4.5 g IV every 8 hours Pantoprazole 40 mg IV daily NSS at 125 mL/h From the ED the patient received the following: Zofran ODT,, 1 g IV, pantoprazole 40 mg IV, dicyclomine 20 mg IM, NSS 500 mL bolus, famotidine 20 g IV, and Lopressor 5 mg IV x 2 Further pain management to be controlled by the OR, and will be adjusted after that Patient is being taken emergently to the OR by general surgery Dr. Campuzano Atrial fibrillation with RVR/chronic atrial fibrillation- The patient will be admitted to telemetry for serial cardiac enzymes, serial EKG's, cardiac rhythm monitoring and a 2-D echocardiogram with Dopplers. Patient did receive Kcentra for reversal of anticoagulation due to apixaban Likely from a number of factors including but not limited to: Acute pain, dehydration, hypomagnesemia, having missed her digoxin and metoprolol succinate dosages Digoxin level was less than 0.3, for which she received a total of digoxin 0.25 mg IV in the ED She also received Lopressor 5 mg IV x 2 in the ED Rate control should improve with pain management and control Expect also change related to surgery medications used they are Anticoagulation will be resumed at the earliest interval that surgery allows Most recent echocardiogram on 03/27/2023 with ejection fraction 60-65% Diabetes mellitus- On no recent medications Glucose 137 on admission Placed on Accu-Cheks with NovoLog SSI Check hemoglobin A1c Generalized anxiety disorder- Holding duloxetine, doxepin, cyclobenzaprine, and buspirone, and will be resumed post surgery when taking p.o. History of Present Illness Chief Complaint: The patient presents to the emergency department with significant abdominal pain, with decreased oral intake, nausea and vomiting that began today. She denies any recent travels or sick exposures. She denies any questionable food intake. Her last bowel movement was last night with no change in symptoms. She had no previous occurrence of this type pain Primary Care Provider: Cyndy Don MD The patient is a 63-year-old female with a past medical history including atrial fibrillation on chronic anticoagulation with apixaban, history of thalassemia, history of right femur osteomyelitis, hypertension, JACEY, history of diabetes, RLS, migraines, and history of gastric bypass. She presents to the emergency department with symptoms as noted above. CT scan of abdomen pelvis expressed concerns for a closed-loop small bowel obstruction, and patient is being taken emergently to the OR by general surgery Dr. Campuzano. Allergies Allergy/AdvReac Type Severity Reaction Status Date / Time hylan G-F 20 Allergy Severe CAN'T Verified 08/22/23 13:49 REMEMBER mushroom Allergy Intermediate RASH Verified 08/22/23 13:49 Home Medications Medication Instructions Recorded Confirmed Type acetaminophen 500 mg tablet 1,000 mg PO Q8 Pain 10/11/22 07/15/23 History (Tylenol Extra Strength) [id number] acid 0.4 1 tab PO QAM 10/11/22 07/15/23 History mg-lycopene 300 mcg-lutein 250 mcg tablet (Centrum Silver) polyethylene glycol 3350 17 gram 17 g PO BID PRN Constipation 10/11/22 07/15/23 History oral powder packet (Miralax) digoxin 125 mcg (0.125 mg) tablet 125 mcg PO QPM #90 tabs 10/24/22 07/15/23 Rx doxepin 100 mg capsule 100 mg PO HS 01/23/23 07/15/23 History cyclobenzaprine 10 mg tablet 10 mg PO TID PRN muscle spasm #30 02/27/23 07/15/23 Rx tabs cyanocobalamin (vitamin B-12) 1,000 mcg PO QAM 04/01/23 07/15/23 History 1,000 mcg capsule ascorbic acid (vitamin C) 500 mg 500 mg PO DAILY 06/19/23 07/15/23 History tablet (Vitamin C) cholecalciferol (vitamin D3) 125 125 mcg PO DAILY 06/19/23 07/15/23 History mcg (5,000 unit) tablet (Vitamin D3) guaifenesin 600 mg tablet, 600 mg PO Q12H 06/19/23 07/15/23 History extended release 12 hr (Mucinex) melatonin 10 mg tablet 20 mg PO HS 06/19/23 07/15/23 History sennosides 8.6 mg-docusate sodium 2 tab-cap PO BID 06/19/23 07/15/23 History 50 mg tablet (Senna Plus) zinc 50 mg tablet 50 mg PO DAILY 06/19/23 07/15/23 History duloxetine 30 mg capsule,delayed 30 mg PO DAILY #30 caps 06/21/23 07/15/23 Rx release ketoconazole 2 % topical cream 1 applic EXT TID PRN rash under 06/21/23 07/15/23 Rx skin folds #15 grams cefadroxil 500 mg capsule 500 mg PO BID #1 cap 07/11/23 07/15/23 Rx metoprolol succinate 50 mg 50 mg PO BID #60 tabs 08/22/23 08/22/23 Rx tablet,extended release 24 hr lisinopril 2.5 mg tablet 2.5 mg PO DAILY #30 tabs 08/23/23 Rx buspirone 10 mg tablet 10 mg PO TID #270 tabs 10/07/23 Rx ropinirole 0.25 mg tablet 0.25 mg PO HS #90 tabs 10/07/23 Rx apixaban 5 mg tablet (Eliquis) 5 mg PO BID 90 days #180 tabs 10/26/23 Rx furosemide 20 mg tablet (Lasix) 20 mg PO DAILY edema #90 tabs 11/20/23 Rx omeprazole 20 mg tablet,delayed 20 mg PO DAILY #90 tabs 11/20/23 Rx release levothyroxine 75 mcg tablet 75 mcg PO DAILY #90 tabs 01/25/24 Rx Past Med/Surg History Problem List Small bowel obstruction Encounter for pre-operative examination Nausea & vomiting (Acute) Abdominal pain (Acute) Acute alteration in mental status (Acute) Atrial fibrillation with RVR (Acute) Anemia (Acute) Hypothyroidism Atrial fibrillation, chronic 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 Osteomyelitis of right femur (Acute) Spondylolisthesis of cervical region Metabolic encephalopathy Status post Girdlestone procedure Family history of colon cancer Neck pain (Acute) Warfarin-induced coagulopathy (Acute) HTN (hypertension) (Chronic) Chronic pain (Acute) Fall down stairs (Acute) Left wrist injury (Acute) Orthostatic dizziness (Acute) Subtherapeutic international normalized ratio (INR) (Acute) Right heart failure, unspecified Peripheral edema Adjustment disorder with disturbance of emotion Generalized anxiety disorder Chronic pain of right hip (Acute) Diabetes pt denies Impaired ambulation Urinary incontinence Constipation (Acute) RLS (restless legs syndrome) Migraines H/O gastric bypass Medical History [employer] historian History of COVID-19 July 2020 treated at a hospital in [place] for several days. Weight loss, unintentional History of gastric polyp Hypothyroidism Lyme disease hx On anticoagulant therapy Major depression Anxiety Sleep apnea hx -- since weightloss and gastric bypass surgery no problems with PORTILLO. Atrial fibrillation follows with [facility] Cardiology (Donna Osborne PA-C) dx a year ago. no cardioversions in the past. Acute hyponatremia Pneumonia hx - "years ago" Anemia Iron deficiency anemia GERD (gastroesophageal reflux disease) occasional Chronic heart failure with preserved ejection fraction (HFpEF) PE (pulmonary embolism) 10+ years ago. unsure of cause. Cervical radiculopathy Thalassemia (Unknown) Arthroplasty of knee (Unknown) "bilateral " Surgical History History of section S/P revision of total hip History of bilateral knee arthroplasty History of esophagogastroduodenoscopy (EGD) History of colonoscopy History of cholecystectomy Status post hip surgery R HIP REPLACEMENT REMOVED DUE TO INFX History of bilateral hip replacements Family History Father Colorectal cancer Mother Diabetes Other FHx: throat cancer No family history of adverse response to anesthesia Denies family history of Ovarian cancer Prostate cancer Myocardial infarction Breast cancer Social History Smoking Status: Former smoker Tobacco Type: Cigarettes Second Hand Exposure: No; Do You Dip or Chew Tobacco: No; Tobacco Cessation Education Requested by Patient: No Hx Alcohol Use: Yes Alcohol type: wine Hx Substance Use: Yes Substance Use Type Other:: medical marijuana Preferred Language: Lithuanian Communication Ability: Effective Communication Ability Comment: often unable to communicate effectively Visual Impairment: Partially Limited 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: No Beliefs That Will Affect Care: None marital status: Current Living Situation: Alone Current Living Situation Comment: lives alone in apartment, daughter checks on her How many Children do You have: 3 Other Information That Helps Us Care for You: No Feels Safe at Home: Yes Safety Concerns: Feels Safe At This Time Diet: regular caffeine: Yes Dental Care, Regularly: No Physical Activity Frequency: Does not Exercise Seatbelt Use: always Sunscreen Use: Yes Assistive Devices: Glasses and Wheelchair Review of Systems Review of Systems: The patient denies chest pain, palpitations, shortness of breath, dyspnea on exertion, cough, lower extremity swelling, sore throat, blood in urine or stool, dysuria, urinary frequency or urgency, lightheadedness, dizziness, headache, memory loss, loss of consciousness, rash, abnormal bruising or bleeding, imbalance, focal or generalized weakness, numbness or tingling in arms or legs, generalized arthralgias or myalgias, back or neck pain, or night sweats. The review of systems is otherwise negative other than for that already noted above, and at least 10 systems have been reviewed. Physical Exam Physical Exam: The patient is awake, alert and oriented 3, well developed and well nourished, normocephalic and atraumatic, lying in bed and in moderate distress secondary to abdominal pain HEENT--PERRL, EOMI, mucous membranes and oropharynx dry. Neck--supple. No JVD. No bruits. Thyroid normal, trachea midline, no adenopathy. Heart--tachycardic, irregularly irregular. No murmurs, rubs or gallops. Lungs--clear bilaterally, no respiratory distress, no accessory muscle use. Abdomen--decreased bowel sounds and soft. Generalized tenderness. Mildly distended and tympanitic Extremities--no cyanosis or clubbing. No edema. There are good distal pulses b/l. Dermatologic--normal skin turgor, normal color, no abnormal lymph nodes, no rash. Neurologic--cranial nerves II through XII grossly intact. Rheumatologic--normal range of motion. Psychiatric--normal affect. Results & Data Results & Data Vital Signs (Past 12 Hours) Vital Signs Temp Pulse Pulse Resp BP BP Pulse Ox 10/08/24 20:30 36.6 C 04/07/24 20:16 140 H 20 160/127 H 96 04/07/24 20:16 160/127 H 04/07/24 20:12 172/137 H 04/07/24 20:11 135 H 04/07/24 20:03 133 H 18 96 04/07/24 20:00 125 H 166/123 H 04/07/24 20:00 131 H 23 166/123 H 96 04/07/24 19:47 125 H 20 151/120 H 96 04/07/24 19:47 125 H 20 151/120 H 96 04/07/24 19:47 125 H 20 151/120 H 96 04/07/24 19:33 134 H 20 98 04/07/24 19:33 135 H 177/142 H 04/07/24 19:24 152 H 04/07/24 19:21 140 H 13 98 04/07/24 19:17 177/142 H 04/07/24 19:17 177/142 H 04/07/24 19:17 146 H 04/07/24 19:17 142 H 18 177/142 H 95 04/07/24 19:12 174 H 18 94 04/07/24 19:09 145/119 H 04/07/24 19:09 145/119 H 04/07/24 19:09 132 H 145/119 H 04/07/24 19:00 150 H 25 H 04/07/24 18:00 120 H 17 155/109 H 04/07/24 17:30 138 H 23 04/07/24 17:27 133 H 29 H 04/07/24 16:33 123 H 21 04/07/24 16:06 131 H 18 04/07/24 15:38 127 H 04/07/24 15:30 135 H 21 97 04/07/24 15:20 116 H 22 112/78 04/07/24 15:20 116 H 22 112/78 O2 Del Method 04/07/24 20:30 04/07/24 20:16 Room Air 04/07/24 20:16 04/07/24 20:12 04/07/24 20:11 04/07/24 20:03 04/07/24 20:00 04/07/24 20:00 Room Air 04/07/24 19:47 Room Air 04/07/24 19:47 Room Air 04/07/24 19:47 Room Air 04/07/24 19:33 Room Air 04/07/24 19:33 04/07/24 19:24 04/07/24 19:21 Room Air 04/07/24 19:17 04/07/24 19:17 04/07/24 19:17 04/07/24 19:17 Room Air 04/07/24 19:12 Room Air 04/07/24 19:09 04/07/24 19:09 04/07/24 19:09 04/07/24 19:00 04/07/24 18:00 04/07/24 17:30 04/07/24 17:27 04/07/24 16:33 04/07/24 16:06 04/07/24 15:38 04/07/24 15:30 04/07/24 15:20 04/07/24 15:20 Laboratory Results Laboratory Results WBC 11.58 K/ul (4.8-10.8) H 04/07/24 15:40 RBC 5.24 M/uL (4.20-5.40) 04/07/24 15:40 Hgb 9.7 g/dl (12.0-16.0) L 04/07/24 15:40 Hct 30.9 % (37.0-47.0) L 04/07/24 15:40 MCV 59.0 fL (80.0-100.0) L 04/07/24 15:40 MCH 18.5 pg (25.0-34.0) L 04/07/24 15:40 MCHC 31.4 g/dL (32.0-36.0) L 04/07/24 15:40 RDW Std Deviation 30.4 fL (36.4-46.3) L 04/07/24 15:40 RDW Coeff of Fredrick 15.3 % (11.5-14.5) H 04/07/24 15:40 Plt Count 419 K/uL (130-400) H 04/07/24 15:40 MPV 9.2 fL (9.4-12.4) L 04/07/24 15:40 Immature Gran % (Auto) 0.3 % 04/07/24 15:40 Neut % (Auto) 82.4 % 04/07/24 15:40 Lymph % (Auto) 12.3 % 04/07/24 15:40 Stephens % (Auto) 4.5 % 04/07/24 15:40 Eos % (Auto) 0.2 % 04/07/24 15:40 Baso % (Auto) 0.3 % 04/07/24 15:40 Neut # (Auto) 9.56 K/uL (1.40-6.50) H 04/07/24 15:40 Lymph # (Auto) 1.42 K/uL (1.20-3.40) 04/07/24 15:40 Stephens # (Auto) 0.52 K/uL (0.11-0.59) 04/07/24 15:40 Eos # (Auto) 0.02 K/uL (0.00-0.50) 04/07/24 15:40 Baso # (Auto) 0.03 K/uL (0.00-0.20) 04/07/24 15:40 Immature Gran # (Auto) 0.03 K/uL (0.01-0.20) 04/07/24 15:40 Absolute Nucleated RBC 0.06 K/uL (0.00-0.12) 04/07/24 15:40 Nucleated RBC % (auto) 0.5 % 04/07/24 15:40 Anisocytosis Present 04/07/24 15:40 Target Cells 2+ 04/07/24 15:40 PT 10.4 Seconds (9.0-12.0) 04/07/24 15:40 INR 1.0 (0.9-1.1) 04/07/24 15:40 Sodium 130 mmol/L (136-145) L 04/07/24 15:40 Potassium 4.1 mmol/L (3.5-5.1) 04/07/24 15:40 Chloride 94 mmol/L (98-107) L 04/07/24 15:40 Carbon Dioxide 25 mmol/L (21-32) 04/07/24 15:40 Anion Gap 11 (3-11) 04/07/24 15:40 BUN 17 mg/dl (6-23) 04/07/24 15:40 Creatinine 0.69 mg/dl (0.6-1.2) 04/07/24 15:40 Est Cr Clr Drug Dosing 87.5 ml/min 04/07/24 15:40 eGFR 98.68 04/07/24 15:40 BUN/Creatinine Ratio 24.6 (10-20) H 04/07/24 15:40 Glucose 137 mg/dl (70-99(Fasting)) H 04/07/24 15:40 POC Glucose 153 mg/dl (70-99) H 04/08/24 00:21 Lactate 3.6 mmol/L (0.4-2.0) H* 04/07/24 23:27 Calcium 9.6 mg/dl (8.6-10.3) 04/07/24 15:40 Magnesium 1.7 mg/dl (1.7-2.4) 04/07/24 15:40 Total Bilirubin 1.0 mg/dl (0.2-1.0) 04/07/24 15:40 AST 19 U/L (13-39) 04/07/24 15:40 ALT 18 U/L (7-52) 04/07/24 15:40 Alkaline Phosphatase 122 U/L (34-104) H 04/07/24 15:40 Total Protein 7.8 gm/dl (6.0-8.3) 04/07/24 15:40 Albumin 4.1 gm/dl (3.4-5.0) 04/07/24 15:40 Globulin 3.7 gm/dl (2.5-4.0) 04/07/24 15:40 Albumin/Globulin Ratio 1.1 (0.9-2) 04/07/24 15:40 Lipase 19 U/L (11-82) 04/07/24 15:40 Urine Color Yellow 04/08/24 01:42 Urine Appearance Clear (Clear) 04/08/24 01:42 Urine pH 5.0 (4.5-7.5) 04/08/24 01:42 Ur Specific [place] > 1.045 (1.000-1.030) H 04/08/24 01:42 Urine Protein Trace (Negative) H 04/08/24 01:42 Urine Glucose (UA) Negative (Negative) 04/08/24 01:42 Urine Ketones Negative (Negative) 04/08/24 01:42 Urine Blood Negative (Negative) 04/08/24 01:42 Urine Nitrite Negative (Negative) 04/08/24 01:42 Urine Bilirubin Negative (Negative) 04/08/24 01:42 Urine Urobilinogen Negative (Negative) 04/08/24 01:42 Ur Leukocyte Esterase Negative (Negative) 04/08/24 01:42 Urine WBC (Auto) 0-5 /hpf (0-5) 04/08/24 01:42 Urine RBC (Auto) 3-5 /hpf (0-2) H 04/08/24 01:42 U Hyaline Cast (Auto) 0-2 /lpf (0-2) 04/08/24 01:42 U Epithel Cells (Auto) 0-2 /hpf (0-2) 04/08/24 01:42 Urine Bacteria (Auto) None Seen (None Seen) 04/08/24 01:42 Digoxin < 0.3 ng/ml (0.8-2.0) L 04/07/24 15:40 Impressions KUB X-Ray 04/07/24 17:10 KUB CLINICAL HISTORY: Generalized abdominal pain. FINDINGS: 3 AP, portable, supine abdominal radiographs are compared to study dated 01/14/2015 and correlated with abdominal CT dated 03/20/2023. Distended gas- filled loops of small bowel in the central abdomen measure up to 3.4 cm. No evidence of intraperitoneal free air is seen on these supine images. Suture material projects over the left mid abdomen. Cholecystectomy clips are noted in the right upper quadrant. There are no abnormal abdominal calcifications. The ri ght proximal femur surgically absent. A left hip arthroplasty is in place. The heart is enlarged. IMPRESSION: There is evidence of a small bowel obstruction. Correlate clinically. Electronically signed by: Gregor Rosario M.D. 04/07/2024 6:34 PM Abdomen/Pelvis CT 04/07/24 17:43 CR Exam(s): CT ABDOMEN + PELVIS With Contrast IV Amt: 91 cc opti 320 EXAM: CT Abdomen and Pelvis With Intravenous Contrast CLINICAL HISTORY: Reason for exam: abd pain, n/v. TECHNIQUE: Axial computed tomography images of the abdomen and pelvis with intravenous contrast. CTDI is 21.5 mGy and DLP is 1000 mGy-cm. Automated exposure control was utilized for the study. A dose lowering technique was utilized adhering to the principles of ALARA. CONTRAST: Patient received 91 cc Optiray 320 of IV contrast COMPARISON: No relevant prior studies available. FINDINGS: Lung bases: Unremarkable. No mass. No consolidation. Heart: Mild cardiomegaly and moderate mitral calcification. ABDOMEN: Liver: The liver is enlarged measuring 22 cm craniocaudad. No focal liver mass lesion is seen. Gallbladder and bile ducts: Slight biliary duct prominence postcholecystectomy. The common bile duct is nondilated. No choledocholithiasis is identified. Pancreas: Unremarkable. No mass. No ductal dilation. Spleen: Unremarkable. No splenomegaly. Adrenals: Unremarkable. No mass. Kidneys and ureters: Unremarkable. No solid mass. No hydronephrosis. Stomach and bowel: Staple lines along the stomach and proximal small bowel from previous gastric bypass surgery. The proximal small bowel loops are unremarkable. PELVIS: Appendix: The appendix is normal. There is mild diverticulosis of the colon without evidence of diverticulitis. Bladder: Unremarkable. No mass. Reproductive: Unremarkable as visualized. ABDOMEN and PELVIS: Intraperitoneal space: There are several loops of mildly dilated and inflamed small bowel in the anterior pelvis which demonstrate wall thickening and surrounding edema with small pockets of free fluid. This appears to be associated with an unusual twisting the mesentery and abrupt diameter change suggesting internal hernia or closed loop obstruction. No free air. Bones/joints: There is metallic artifact from a left hip arthroplasty. The proximal right femur is absent. The prior right hip arthroplasty has been removed. No acute fracture. No dislocation. Soft tissues: Unremarkable. Vasculature: The abdominal aorta is mildly calcified but nondilated. Lymph nodes: Unremarkable. No enlarged lymph nodes. IMPRESSION: There are several loops of mildly dilated and severely inflamed small bowel in the anterior pelvis which demonstrate wall thickening and surrounding edema with small pockets of free fluid. This appears to be associated with an unusual twist in the mesentery and abrupt diameter change suggesting internal hernia or closed loop obstruction. This is best appreciated on the coronal reformatted images. Communications: Call Doctor Above results Electronically signed by: Pascual Osullivan MD 04/07/24 19:54 PM Code Status & VTE Plan Code Status full code VTE Prophylaxis Plan VTE Prophylaxis will be ordered: Yes PG Care Time/CCT Total # of Minutes Spent Total Time Spent with Patient: Total time spent is greater than 50% in coordination of care (as documented) at patient's floor/unit and/or counseling patient: Coding Level of Care Code 66949 INT INP/OBS CARE MIN Diagnoses Small bowel obstruction K56.609 Nausea & vomiting R11.2 Abdominal pain R10.9 Atrial fibrillation with RVR I48.91 Atrial fibrillation, chronic I48.20 Hypothyroidism E03.9 Warfarin-induced coagulopathy D68.32; T45.515A HTN (hypertension) I10 Generalized anxiety disorder F41.1 RLS (restless legs syndrome) G25.81 H/O gastric bypass Z98.84
[2024-04-07] MEDS: PIPERACILLIN/TAZOBACTAM 4.5 GM/100 ML BAG IV ONE (21:13)
[2024-04-07] MEDS ORDERED: VASOPRESSIN 20 UNIT/ML VIAL ONE (21:35)
[2024-04-07] MEDS ORDERED: PHENYLEPHRINE 100MCG/ML 10ML SYR IV ONE (21:35)
[2024-04-07] MEDS ORDERED: METOPROLOL TARTRATE 1 MG/ML VIAL IV ONE (21:35)
[2024-04-07] MEDS ORDERED: SUGAMMADEX SODIUM 200 MG/2 ML VIAL IV ONE (21:42)
--- NOTE | 2024-04-07 22:05 | Operative Report ---
PG Post Operative Report Pre & Post Diagnosis Operation Date: 04/07/24 21:30 Pre-Op Diagnosis: Abdominal Pain;SBO Post-Op Diagnosis: SBO; Closed loop obstruction; ischemic bowel I identified the patient and participated in the time-out.: Yes Procedure Operation Date: 04/07/24 21:30 Actual Procedures p Exploratory Laparoscopy converted to Laparotomy, Release of small bowel obstruction and enterolysis(Not Applicable) - Judd Campuzano DO Surgeon Judd Campuzano DO Statistician Theoretical audra Cannon Estimated Blood Loss 25 Findings Consistent with Post-Op Diagnosis Specimens none Description of Procedure After informed consent was obtained the patient was taken to the operating room and placed in supine position. After successful intubation a Chen catheter was placed sterilely. The abdomen was then sterilely prepped and draped in usual fashion. A supraumbilical incision was made with an 11 blade scalpel and mahesh d down through the soft tissue using cautery. Anterior fascia was opened using cautery and two #0 Vicryl stay sutures were placed. Peritoneum was elevated with hemostats and incised under direct vision using a Metzenbaum scissor. A finger sweep was performed. A 12 mm Britton trocar was placed and the abdomen was insufflated to 18 mmHg. Laparoscope was inserted and the abdomen examined 360 degrees. We immediately noted some purple/ischemic possibly infarcted small bowel in the lower abdomen. The upper abdomen appeared normal. There was some free fluid in the pelvis as well. At this point I decided to convert to a laparotomy to better evaluate. I removed the trocar. We extended the incision from the supraumbilical incision down to the suprapubic region. Once this was performed I was then able to run the bowel. There was a single thick band adhesion in the right lower quadrant that was causing a closed-loop obstruction. I released this using cautery. This immediately released the obstruction. I ran the bowel from the terminal ileum at the cecum proximally for probably 10 feet. I did not feel necessary to extend the incision to the upper abdomen as the upper abdominal contents appeared normal. I was able to evaluate her jejunojejunostomy from her prior bypass and this looked okay. The remainder of the bowel appeared normal. We bathed the ischemic bowel in warm solution for several minutes. I was able to palpate pulses and the bowel itself did slowly begin to pink up. There did not appear to be any areas of actual infarction. I would have a low threshold for reoperative surgery should the patient deteriorate clinically over the next 24-48 hours. We irrigated the entire lower abdomen and pelvis with warm irrigant. There was adequate hemostasis at the end of the procedure. No other abnormalities were identified. The fascia was closed using 0-looped PDS in running fashion. The wound was irrigated and closed with skin estela. Sterile dressing and abdominal binder were applied. The patient was awakened extubated and transferred to recovery in guarded condition. My physician psychology assistant was present for the entire case was instrumental in providing exposure during my evaluation assisting with wound closure and dressing placement. I attest to the content of the Intraoperative Record and any orders documented therein. Any exceptions are noted below.
[2024-04-07] MEDS: BUPIVACAINE/EPINEPHRINE 0.5% MPF 1:200,000 30 ML VIAL ONE (22:10)
--- NOTE | 2024-04-07 22:14 | Emergency Department Note ---
ED Visit Note Patient was signed out to me at change of shift by Dr. Doyle, pending the results of CT imaging of the abdomen pelvis to rule out possible small bowel obstruction. CT imaging of the abdomen pelvis does reveal small bowel obstruction with possible closed-loop obstruction, I was contacted by phone by the stat rad radiologist in regards to this finding. On my assessment the patient is still having some pain, mostly in the lower abdomen. She is mildly tachycardic with atrial fibrillation with RVR in the 120s on my assessment but blood pressure is actually hypertensive. Lactic acid was added to the patient's lab work that returns at 3.0. Following the results of CT imaging, I did contact on-call general surgery, patient was evaluated at the bedside by Hal Cannon PA-C, and the case was staffed with the attending general surgeon, Dr. Campuzano. Following this evaluation the patient was determined appropriate for operative intervention and she was transferred to the operating room in stable condition for further management. Prior to this, hospitalist was consulted for medical admission. Patient's presentation was discussed with the on-call hospitalist, Dr. Arambula. Patient was given a dose of magnesium here in the ED as well as IV digoxin for her atrial fibrillation prior to admission. Patient was informed of all the above findings, she is in agreement for admission for operative intervention and she was placed for admission in stable condition. Diagnosis: Small bowel obstruction, atrial fibrillation with RVR, lactic acidosis Disposition: Admission /transfer to the operating room DO Stephanie Poole
--- NOTE | 2024-04-07 22:37 | Anesthesiology Progress Note ---
Date of Service April 07, 2024 Anesthesia Post Procedure Vital Signs Vital Signs: Temp Pulse Pulse Resp BP BP BP 04/07/24 22:25 117 H 18 123/99 04/07/24 22:15 110 H 18 134/91 04/07/24 22:08 97.0 F L 133 H 18 129/90 04/07/24 20:30 97.9 F 04/07/24 20:16 140 H 20 160/127 H 04/07/24 20:16 160/127 H 04/07/24 20:12 172/137 H 04/07/24 20:11 135 H 04/07/24 20:03 133 H 18 04/07/24 20:00 125 H 166/123 H 04/07/24 20:00 131 H 23 166/123 H 04/07/24 19:47 125 H 20 151/120 H 04/07/24 19:47 125 H 20 151/120 H 04/07/24 19:47 125 H 20 151/120 H 04/07/24 19:33 134 H 20 04/07/24 19:33 135 H 177/142 H 04/07/24 19:24 152 H 04/07/24 19:21 140 H 13 04/07/24 19:17 177/142 H 04/07/24 19:17 177/142 H 04/07/24 19:17 146 H 04/07/24 19:17 142 H 18 177/142 H 04/07/24 19:12 174 H 18 04/07/24 19:09 145/119 H 04/07/24 19:09 145/119 H 04/07/24 19:09 132 H 145/119 H 04/07/24 19:00 150 H 25 H 04/07/24 18:00 120 H 17 155/109 H 04/07/24 17:30 138 H 23 04/07/24 17:27 133 H 29 H 04/07/24 16:33 123 H 21 04/07/24 16:06 131 H 18 04/07/24 15:38 127 H 04/07/24 15:30 135 H 21 04/07/24 15:20 116 H 22 112/78 04/07/24 15:20 116 H 22 112/78 Pulse Ox O2 Del Method O2 Flow Rate 04/07/24 22:25 100 Oxymask 5 04/07/24 22:15 100 Oxymask 10 04/07/24 22:08 99 Oxymask 10 04/07/24 20:30 04/07/24 20:16 96 Room Air 04/07/24 20:16 04/07/24 20:12 04/07/24 20:11 04/07/24 20:03 96 04/07/24 20:00 04/07/24 20:00 96 Room Air 04/07/24 19:47 96 Room Air 04/07/24 19:47 96 Room Air 04/07/24 19:47 96 Room Air 04/07/24 19:33 98 Room Air 04/07/24 19:33 04/07/24 19:24 04/07/24 19:21 98 Room Air 04/07/24 19:17 04/07/24 19:17 04/07/24 19:17 04/07/24 19:17 95 Room Air 04/07/24 19:12 94 Room Air 04/07/24 19:09 04/07/24 19:09 04/07/24 19:09 04/07/24 19:00 04/07/24 18:00 04/07/24 17:30 04/07/24 17:27 04/07/24 16:33 04/07/24 16:06 04/07/24 15:38 04/07/24 15:30 97 04/07/24 15:20 04/07/24 15:20 Pain Intensity Generalized: Pain Intensity: 3 Transfer of Care Handoff Completed per policy Notes Mental Status: alert / awake / arousable and participated in evaluation Patient Amnestic to Procedure: Yes Nausea / Vomiting: adequately controlled Pain: adequately controlled Airway Patency, RR, SpO2: stable & adequate BP & HR: stable & adequate (Afib 110s - 130s ) Hydration State: stable & adequate Anesthetic Complications: no major complications apparent and Pt Satisfied with anesthetic care
[2024-04-07] MEDS: fentaNYL citrate PF 100 MCG/2 ML VIAL IV PRN (22:45)
[2024-04-07] MEDS ORDERED: GLUCOSE 10 TAB/TUBE PO PRN (23:25)
[2024-04-07] MEDS ORDERED: GLUCAGON FOR INJ 1 MG VIAL SQ PRN (23:25)
[2024-04-07] MEDS ORDERED: GLUCOSE 40% GEL 15 GM TUBE PO PRN (23:25)
[2024-04-07] MEDS ORDERED: CARBOHYDRATES FOR HYPOGLYCEMIA PO PRN (23:25)
[2024-04-07] MEDS ORDERED: DEXTROSE 50% 50 ML SYRINGE IV PRN (23:25)
[2024-04-07] MEDS: fentaNYL citrate PF 100 MCG/2 ML VIAL ONE (23:32)
[2024-04-07] MEDS: ACETAMINOPHEN 1,000 MG/100 ML VIAL IV PRN (23:42)
[2024-04-07] MEDS: SODIUM CHLORIDE 0.9% 1,000 ML IV SCH (23:42)
[2024-04-08] MEDS: HYDROmorphone INJ 0.5 MG/0.5 ML SYR IV STA (00:15)
[2024-04-08] MEDS: DIGOXIN 125 MCG in SYRINGE 9.5 ML IV STA (00:16)
[2024-04-08] MEDS: INSULIN ASPART PER UNIT CHARGE SC SCH (00:28)
[2024-04-08] MEDS: HYDROmorphone INJ 0.5 MG/0.5 ML SYR IV PRN (00:52)
[2024-04-08 02:16] LABS: Appearance Urine Clear (Clear); Bacteria Urine Automated None Seen (None Seen); Bilirubin Urine Negative (Negative); Blood Urine Negative (Negative); Cast Urine Automated 0-2 /lpf (0-2); Color Urine Yellow; Epithelial Cell Urine Auto 0-2 /hpf (0-2); Glucose Urine UA Negative (Negative); Ketones Urine Negative (Negative); Leukocyte Esterase Urine Negative (Negative); Nitrite Urine Negative (Negative); Protein Urine Trace (Negative); Specific Gravity Urine > 1.045 (1.000-1.030); Urobilinogen Urine Negative (Negative); WBC Urine Automated 0-5 /hpf (0-5)
[2024-04-08 02:57] LABS: Amphetamines+Metham, Urine Neg (Neg); Barbiturates, Urine Neg (Neg); Benzodiazepine, Urine Neg (Neg); Cocaine, Urine Neg (Neg); Fentanyl, Urine Pos (Neg); MDMA (Ecstacy), Urine Pos (Neg); Marijuana, Urine Pos (Neg); Methadone, Urine Neg (Neg); Opiate, Urine Pos (Neg); Phencyclidine, Urine Neg (Neg)
[2024-04-08] MEDS: PIPERACILLIN/TAZOBACTAM 4.5 GM/100 ML BAG IV SCH (03:20)
[2024-04-08] MEDS: METOPROLOL TARTRATE 1 MG/ML VIAL IV STA (04:31)
[2024-04-08 07:21] LABS: Estimated Average Glucose 111 mg/dl; Hemoglobin A1C 5.5 % (4.5-5.6)
[2024-04-08] MEDS ORDERED: 0.2 MICRON FILTER SET 1 EACH IV STA (07:36)
[2024-04-08] MEDS ORDERED: STAT IV Infusion **Titration per Protocol STA (07:36)
[2024-04-08] MEDS ORDERED: AMIODARONE IV BOLUS & DRIP IV STA (07:36)
--- NOTE | 2024-04-08 07:42 | Hospitalist Progress Note ---
Date of Service April 08, 2024 Assessment & Plan (1) Small bowel obstruction: Plan: Small bowel obstruction/intractable nausea vomiting/abdominal pain/history of gastric bypass- NPO limits oral meds for afib control Zofran 4 mg IV every 6 hours as needed Tylenol 1 g IV every 8 hours as needed for mild pain or fever Zosyn 4.5 g IV every 8 hours Pantoprazole 40 mg IV daily NSS at 85 mL/h 04/07/24 taken emergently to the OR by general surgery Dr. Campuzano (2) Atrial fibrillation with RVR: Plan: is chronic afib with eliquis typically Patient did receive Kcentra for reversal of anticoagulation due to apixaban having missed her digoxin and metoprolol succinate dosages Digoxin level was less than 0.3, for which she received a total of digoxin 0.25 mg IV in the ED She also received Lopressor 5 mg IV x 2 in the ED rate uncontrolled, will start amiodarone bolus gtt, additional digoxin given in afternoon with prn metoprolol (3) Generalized anxiety disorder: Plan: Generalized anxiety disorder- Holding duloxetine, doxepin, cyclobenzaprine, and buspirone, and will be resumed post surgery when taking p.o. Plan Diabetes mellitus- On no recent medications Glucose 137 on admission Placed on Accu-Cheks with NovoLog SSI Check hemoglobin A1c Admission and Anticipated Discharge Date Admission Date: April 07, 2024 Subjective this pt is still having some pain in her abdomen, is tolerating po liquids still no bowel movements has difficult to control afib but cannot feel palpitations Physical Exam Physical Exam: irregular tachycardia heart rhythm lungs are clear abd is soft, tender in LLQ Results & Data Results & Data Vital Signs (Past 12 Hours) Vital Signs Temp Pulse Pulse Resp BP BP Pulse Ox 04/08/24 04:46 135 H 04/08/24 04:31 155 H 127/89 04/08/24 02:49 98.2 F 130 H 18 127/89 94 04/07/24 23:38 97.9 F 128 H 18 124/78 94 04/07/24 22:45 119 H 18 109/85 99 04/07/24 22:35 97.2 F L 129 H 17 131/84 100 04/07/24 22:25 117 H 18 123/99 100 04/07/24 22:15 110 H 18 134/91 100 04/07/24 22:08 97.0 F L 133 H 18 129/90 99 04/07/24 20:30 97.9 F 04/07/24 20:16 140 H 20 160/127 H 96 04/07/24 20:16 160/127 H 04/07/24 20:12 172/137 H 04/07/24 20:11 135 H 04/07/24 20:03 133 H 18 96 04/07/24 20:00 125 H 166/123 H 04/07/24 20:00 131 H 23 166/123 H 96 04/07/24 19:47 125 H 20 151/120 H 96 04/07/24 19:47 125 H 20 151/120 H 96 04/07/24 19:47 125 H 20 151/120 H 96 O2 Del Method O2 Flow Rate 04/08/24 04:46 04/08/24 04:31 04/08/24 02:49 Room Air 04/07/24 23:38 Room Air 04/07/24 22:45 Nasal Cannula 2 04/07/24 22:35 Oxymask 5 04/07/24 22:25 Oxymask 5 04/07/24 22:15 Oxymask 10 04/07/24 22:08 Oxymask 10 04/07/24 20:30 04/07/24 20:16 Room Air 04/07/24 20:16 04/07/24 20:12 04/07/24 20:11 04/07/24 20:03 04/07/24 20:00 04/07/24 20:00 Room Air 04/07/24 19:47 Room Air 04/07/24 19:47 Room Air 04/07/24 19:47 Room Air Laboratory Results review cbc review chemistry PG Care Time/CCT Total # of Minutes Spent Total Time Spent with Patient: Total time spent is greater than 50% in coordination of care (as documented) at patient's floor/unit and/or counseling patient: Coding Level of Care Code 16948 SUB INP/OBS CARE 3/50MIN Diagnoses Small bowel obstruction K56.609 Atrial fibrillation with RVR I48.91 Generalized anxiety disorder F41.1
[2024-04-08] MEDS: AMIODARONE / D5W 150 MG/100 ML BAG IV STA (07:53)
[2024-04-08] MEDS ORDERED: MoRPHine SULFATE 2 MG/ML CARP IV PRN (07:58)
[2024-04-08 08:00] LABS: Albumin Globulin Ratio 1.1 (0.9-2); Albumin Level 3.4 gm/dl (3.4-5.0); BUN Creatinine Ratio 27.4 (10-20); Creatinine Clr Calc Pharmacy 97.4 ml/min; Globulin 3.1 gm/dl (2.5-4.0); Phosphorus 4.3 mg/dl (2.5-4.9); Potassium 5.1 mmol/L (3.5-5.1); Total Protein 6.5 gm/dl (6.0-8.3)
[2024-04-08 08:03] LABS: Hemoglobin 9.4 g/dl (12.0-16.0); Mean Corpuscular Hemoglobin 18.9 pg (25.0-34.0); Mean Corpuscular Hgb Conc 32.4 g/dL (32.0-36.0); Mean Corpuscular Volume 58.2 fL (80.0-100.0); Mean Platelet Volume 10.1 fL (9.4-12.4); Nucleated RBC # (auto) 0.12 K/uL (0.00-0.12); Nucleated RBC % (auto) 0.5 %; Platelet Count 368 K/uL (130-400); RDW Coefficient of Variation 15.6 % (11.5-14.5); RDW Standard Deviation 30.5 fL (36.4-46.3); Red Blood Count 4.98 M/uL (4.20-5.40); White Blood Count 23.69 K/ul (4.8-10.8)
[2024-04-08 08:04] LABS: Basophils # (auto) 0.03 K/uL (0.00-0.20); Basophils % (auto) 0.1 %; Hypochromasia Present; Immature Granulocytes # (auto) 0.14 K/uL (0.01-0.20); Immature Granulocytes % (auto) 0.6 %; Lymphocytes % (auto) 3.4 %; Microcytosis Present; Monocytes # (auto) 1.07 K/uL (0.11-0.59); Monocytes % (auto) 4.5 %; Neutrophils # (auto) 21.65 K/uL (1.40-6.50); Neutrophils % (auto) 91.4 %; Polychromasia 1+; Target Cells 1+
[2024-04-08] MEDS: ACETAMINOPHEN 1,000 MG/100 ML VIAL IV SCH (08:06)
[2024-04-08] MEDS: AMIODARONE / D5W 360 MG/200 ML BAG IV ONE (08:06)
[2024-04-08] MEDS: MoRPHine SULFATE 4 MG/ML 1 ML CARP\\VIAL IV PRN (08:11)
--- NOTE | 2024-04-08 08:11 | Surgery Progress Note ---
Date of Service April 08, 2024 Assessment & Plan (1) Small bowel obstruction: Plan: POD#1 ex lap and release of small bowel obstruction WBC 23, Hbg 9.4, Vitals show afib with HRs 120+. BP stable, pt afebrile Pt complains of abdominal pain not well managed on current regimen, will add some prn IV morphine for now Abdomen soft, non distended, with surgical dressings c/d/i Will d/c whitlock catheter Trial on clear liquids Appreciate hospitalist assistance will discuss when to resume eliquis with surgeon as above. doing as expected pod 1. pre-op pain resolved...+incisional pain stay on clears for now. pt at high risk for ileus. Admission and Anticipated Discharge Date Admission Date: April 07, 2024 Subjective Patient feeling pretty good this AM, but reporting abdominal pain not controlled with just tylenol. She otherwise denies nausea/vomiting. No bowel function yet. No CP/SOB Physical Exam Physical Exam: awake/alert, no distress Respiratory: normal respiratory effort Cardiovascular: afib Gastrointestinal (Abdomen): Inspection/Auscultation: + abdominal surgical inci demario (surgical dressings c/d/i); abdomen not distended Percussion/Palpation: + abdomen tender (expected post op discomfort ) and abdomen soft Results & Data Vital Signs (Past 12 Hours) Vital Signs Temp Pulse Pulse Resp BP BP Pulse Ox 04/08/24 07:49 98.1 F 124 H 18 131/69 96 04/08/24 04:46 135 H 04/08/24 04:31 155 H 127/89 04/08/24 02:49 98.2 F 130 H 18 127/89 94 04/07/24 23:38 97.9 F 128 H 18 124/78 94 04/07/24 22:45 119 H 18 109/85 99 04/07/24 22:35 97.2 F L 129 H 17 131/84 100 04/07/24 22:25 117 H 18 123/99 100 04/07/24 22:15 110 H 18 134/91 100 04/07/24 22:08 97.0 F L 133 H 18 129/90 99 04/07/24 20:30 97.9 F 04/07/24 20:16 140 H 20 160/127 H 96 04/07/24 20:16 160/127 H 04/07/24 20:12 172/137 H 04/07/24 20:11 135 H O2 Del Method O2 Flow Rate 04/08/24 07:49 Room Air 04/08/24 04:46 04/08/24 04:31 04/08/24 02:49 Room Air 04/07/24 23:38 Room Air 04/07/24 22:45 Nasal Cannula 2 04/07/24 22:35 Oxymask 5 04/07/24 22:25 Oxymask 5 04/07/24 22:15 Oxymask 10 04/07/24 22:08 Oxymask 10 04/07/24 20:30 04/07/24 20:16 Room Air 04/07/24 20:16 04/07/24 20:12 04/07/24 20:11 PG Care Time/CCT Total # of Minutes Spent Total Time Spent with Patient: Total time spent is greater than 50% in coordination of care (as documented) at patient's floor/unit and/or counseling patient: Coding Level of Care Code 26403 Post Operative Follow-Up Diagnoses Small bowel obstruction K56.609
[2024-04-08] MEDS: oxyCODONE HCL IR 5 MG TAB (IMMEDIATE RELEASE) PO PRN ×2 (11:04)
[2024-04-08] MEDS: PANTOprazole 40 MG in SYRINGE 0 ML IV SCH (11:05)
[2024-04-08] MEDS: METOPROLOL TARTRATE 1 MG/ML VIAL IV PRN (11:42)
--- NOTE | 2024-04-08 13:54 | XCELERA ---
[id number]
[2024-04-08] MEDS: AMIODARONE / D5W 360 MG/200 ML BAG IV SCH (13:57)
--- NOTE | 2024-04-08 15:20 | Electrocardiogram Report ---
Test Reason : Blood Pressure : */* mmHG Vent. Rate : 141 BPM Atrial Rate : 170 BPM P-R Int : * ms QRS Dur : 70 ms QT Int : 292 ms P-R-T Axes : * 69 54 degrees QTcB Int : 447 ms Possible Atrial flutter with rapid ventricular response Low voltage QRS Abnormal ECG When compared with ECG of 07-Apr-2024 19:22, (unconfirmed) No significant change was found Confirmed by Jhonathan Reyes ([id number]) on 04/08/2024 3:20:02 PM Referred By: REFERRED SELF Confirmed By: Jhonathan Reyes
[2024-04-08] MEDS: DIGOXIN 250 MCG in SYRINGE 9 ML IV STA (16:59)
--- NOTE | 2024-04-08 17:18 | Hospitalist Progress Note ---
Date of Service April 08, 2024 Assessment & Plan (1) Small bowel obstruction: Plan: Acute ischemia of small intestine Small bowel obstruction/intractable nausea vomiting/abdominal pain/history of gastric bypass- unclear oral intake oral meds for afib control will try lower dose metoprolol given now take some po Zofran 4 mg IV every 6 hours as needed Tylenol 1 g IV every 8 hours as needed for mild pain or fever Zosyn 4.5 g IV every 8 hours Pantoprazole 40 mg IV daily NSS at 85 mL/h 04/07/24 taken emergently to the OR by general surgery Dr. Campuzano (2) Atrial fibrillation with RVR: Plan: is chronic afib with eliquis typically Patient did receive Kcentra for reversal of anticoagulation due to apixaban having missed her digoxin and metoprolol succinate dosages Digoxin level was less than 0.3, for which she received a total of digoxin 0.25 mg IV in the ED She also received Lopressor 5 mg IV x 2 in the ED rate uncontrolled, will start amiodarone bolus gtt, additional digoxin given in afternoon with prn metoprolol if bp allows will start some po metoprolol (3) Generalized anxiety disorder: Plan: Generalized anxiety disorder- Holding duloxetine, doxepin, cyclobenzaprine, and buspirone, and will be resumed post surgery when taking p.o. Plan Diabetes mellitus- On no recent medications Glucose 137 on admission Placed on Accu-Cheks with NovoLog SSI Check hemoglobin A1c Admission and Anticipated Discharge Date Admission Date: April 07, 2024 Results & Data Results & Data Vital Signs (Past 12 Hours) Vital Signs Temp Pulse Pulse Resp BP BP Pulse Ox 04/08/24 16:59 134 H 04/08/24 16:05 128 H 103/69 04/08/24 15:42 128 H 111/77 04/08/24 15:04 97.9 F 118 H 20 118/63 98 04/08/24 13:15 135 H 04/08/24 12:04 114 H 130/80 04/08/24 11:42 148 H 124/70 04/08/24 11:35 97.9 F 120 H 18 124/70 97 04/08/24 07:49 98.1 F 124 H 18 131/69 96 04/08/24 07:46 133 H O2 Del Method 04/08/24 16:59 04/08/24 16:05 04/08/24 15:42 04/08/24 15:04 Room Air 04/08/24 13:15 04/08/24 12:04 04/08/24 11:42 04/08/24 11:35 Room Air 04/08/24 07:49 Room Air 04/08/24 07:46 PG Care Time/CCT Total # of Minutes Spent Total Time Spent with Patient: Total time spent is greater than 50% in coordination of care (as documented) at patient's floor/unit and/or counseling patient: Coding Level of Care Code None Diagnoses Small bowel obstruction K56.609 Atrial fibrillation with RVR I48.91 Generalized anxiety disorder F41.1
[2024-04-08] MEDS: METOPROLOL TARTRATE 25 MG TAB PO SCH (21:01)
[2024-04-08] MEDS: MAGNESIUM SULFATE / D5W 1 GM/100 ML BAG IV SCH (21:03)
[2024-04-09 08:00] LABS: Basophils # (auto) 0.07 K/uL (0.00-0.20); Basophils % (auto) 0.3 %; Eosinophils # (auto) 0.18 K/uL (0.00-0.50); Eosinophils % (auto) 0.8 %; Hematocrit (blood only) 26.4 % (37.0-47.0); Hemoglobin 8.4 g/dl (12.0-16.0); Immature Granulocytes # (auto) 0.14 K/uL (0.01-0.20); Immature Granulocytes % (auto) 0.6 %; Lymphocytes # (auto) 1.42 K/uL (1.20-3.40); Lymphocytes % (auto) 6.4 %; Mean Corpuscular Hgb Conc 31.8 g/dL (32.0-36.0); Mean Corpuscular Volume 59.7 fL (80.0-100.0); Monocytes % (auto) 5.4 %; Neutrophils # (auto) 19.34 K/uL (1.40-6.50); Neutrophils % (auto) 86.5 %; Nucleated RBC # (auto) 0.05 K/uL (0.00-0.12); Nucleated RBC % (auto) 0.2 %; RDW Coefficient of Variation 15.8 % (11.5-14.5); RDW Standard Deviation 32.8 fL (36.4-46.3); Red Blood Count 4.42 M/uL (4.20-5.40); White Blood Count 22.35 K/ul (4.8-10.8)
--- NOTE | 2024-04-09 08:09 | Surgery Progress Note ---
Date of Service April 09, 2024 Assessment & Plan (1) Small bowel obstruction: Plan: POD#2 ex lap and release of small bowel obstruction WBC 22 (23), Vitals show afib with HRs 120+. BP stable, pt afebrile Pt complains of abdominal discomfort Abdomen soft, mildly distended, dressing removed estela CDI no drainage on clear liquids no n/v , feeling bloated would not advance diet past clears encouraged movement, OOB to chair , sitting at edge of bed as above. doing as expected. still some surgical pain will consult PT stay on clears until better bowel fx. no sign of ileus yet but still high risk. Admission and Anticipated Discharge Date Admission Date: April 07, 2024 Subjective Pt reports abd discomfort Denies flatus , BM Review of Systems Constitutional: no fever and no chills Respiratory: no dyspnea Cardiovascular: no chest pain Gastrointestinal: + abdominal pain and + bloating; no naus ea and no vomiting Genitourinary: + urinary incontinence Physical Exam Constitutional: cooperative and comfortable; no acute distress Respiratory: normal respiratory effort and able to speak in complete sentences; no respiratory distress Gastrointestinal (Abdomen): Inspection/Auscultation: + abdomen distended and + abdominal surgical incision (staple CDI ) Percussion/Palpation: + abdomen tender and abdomen soft Results & Data Vital Signs (Past 12 Hours) Vital Signs Temp Pulse Pulse Resp BP BP Pulse Ox 04/09/24 06:58 98.1 F 120 H 20 97/67 L 95 04/09/24 03:25 97.7 F 115 H 16 122/79 93 04/08/24 23:22 128 H 105/74 04/08/24 22:59 127 H 122/81 04/08/24 22:13 98.1 F 127 H 18 122/81 93 04/08/24 21:51 126 H O2 Del Method 04/09/24 06:58 Room Air 04/09/24 03:25 Room Air 04/08/24 23:22 04/08/24 22:59 04/08/24 22:13 Room Air 04/08/24 21:51 Results CBC w Diff Results: RBC 4.42 M/uL (4.20-5.40) 04/09/24 WBC 22.35 K/ul (4.8-10.8) H 04/09/24 Hgb 8.4 g/dl (12.0-16.0) L 04/09/24 Hct 26.4 % (37.0-47.0) L 04/09/24 MCV 59.7 fL (80.0-100.0) L 04/09/24 MCH 19.0 pg (25.0-34.0) L 04/09/24 MCHC 31.8 g/dL (32.0-36.0) L 04/09/24 RDW Standard Deviation 32.8 fL (36.4-46.3) L 04/09/24 RDW Coefficient of Variation 15.8 % (11.5-14.5) H 04/09/24 Plt Count 304 K/uL (130-400) 04/09/24 MPV 10.2 fL (9.4-12.4) 04/09/24 Nucleated Red Blood Cells % (auto) 0.2 % 04/09 Nucleated RBC Absolute Count (auto) 0.05 K/uL (0.00-0.12) 1 Neutrophils (%) (Auto) 86.5 % 04/09/24 Lymphocytes (%) (Auto) 6.4 % 04/09/24 Monocytes # (Auto) 1.20 K/uL (0.11-0.59) H 04/09/24 Eosinophils # (Auto) 0.18 K/uL (0.00-0.50) 04/09/24 Immature Granulocyte % (Auto) 0.6 % 04/09/24 Neutrophils # (Auto) 19.34 K/uL (1.40-6.50) H 04/09/24 Lymphocytes # (Auto) 1.42 K/uL (1.20-3.40) 04/09/24 Monocytes # (Auto) 1.20 K/uL (0.11-0.59) H 04/09/24 Eosinophils # (Auto) 0.18 K/uL (0.00-0.50) 04/09/24 Basophils # (Auto) 0.07 K/uL (0.00-0.20) 04/09/24 Immature Granulocyte # (Auto) 0.14 K/uL (0.01-0.20) 4 Polychromasia 1+ 04/09/24 Hypochromasia Present 04/08/24 Poikilocytosis Present 06/21/23 Echinocytes 1+ 03/02/23 Anisocytosis Present 04/07/24 Microcytosis Present 04/09/24 Spherocytes 1+ 01/11/22 Target Cells 2+ 04/09/24 Tear Drop Cells 1+ 04/09/24 Ovalocytes 1+ 05/13/23 Dohle Bodies 1+ 03/21/23 Rouleau 1+ 03/20/23 Schistocytes 1+ 04/14/23 PG Care Time/CCT Total # of Minutes Spent Total Time Spent with Patient: Total time spent is greater than 50% in coordination of care (as documented) at patient's floor/unit and/or counseling patient: Coding Level of Care Code 90369 Post Operative Follow-Up Diagnoses Small bowel obstruction K56.609
[2024-04-09] MEDS: ONDANSETRON INJ 2 MG/ML 2 ML VIAL IV PRN (08:22)
[2024-04-09 08:31] LABS: Albumin Level 3.4 gm/dl (3.4-5.0); Bilirubin,Total 0.5 mg/dl (0.2-1.0); Calcium 8.6 mg/dl (8.6-10.3); Creatinine Clr Calc Pharmacy 97.5 ml/min; Globulin 3.4 gm/dl (2.5-4.0); Phosphorus 2.8 mg/dl (2.5-4.9); Potassium 4.3 mmol/L (3.5-5.1); Total Protein 6.8 gm/dl (6.0-8.3)
[2024-04-09 09:05] LABS: Mean Platelet Volume 10.2 fL (9.4-12.4); Platelet Count 304 K/uL (130-400)
[2024-04-09 09:17] LABS: Microcytosis Present; Polychromasia 1+; Target Cells 2+; Tear Drop Cells 1+
--- NOTE | 2024-04-09 09:37 | Cardiology Consultation ---
Date of Consultation April 09, 2024 Assessment & Plan (1) Small bowel obstruction: (2) Atrial fibrillation with RVR: Plan Assessment: 63 year old female with history of Gastric bypass presents with intractable N/V and abdominal pain with CT findings demonstrating a SBO sent for emergent surgery. Plan: Small Bowel obstruction -s/p exploratory lap and release of SBO -Feeling marked improvement today. Tolerating clear liquids. -Continued management per primary team and General surgery. Still high risk for Ileus. Atrial fibrillation with RVR: -Patient with known history of P. A-fib, does not have an established reflexologist. -Patient's home medications included Toprol xl 50mg PO BID. Will transition from Lopressor back to her home Toprol xl but at 25mg PO BID, and titrate up as appropriate with HR and BPs. -Currently on amiodarone gtt. Will discuss this with Dr. Miranda as patient was previously on PO Digoxin at home. Rates are improving/controlled on amiodarone gtt -Eliquis remains on hold today due to post op status. Would recommend consideration to restart when OK with General surgery and if H/H remains stable. -[id number] Score 2 (Gender and HTN) -Euvolemic on exam. -Echocardiogram is pending Case has been discussed with Dr. Miranda. Further recommendations regarding plan of care as per his assessment. I spent a total of 40 minutes on the date of service in preparation, delivery, documentation of the care provided to the patient excluding any time spent in the performance of separately billed services. AGNES Schaefer [facility] Cardiology [facility] Supervising Physician Co-Signing Physician Notes Attending attestation: Case reviewed with the advanced practitioner. I have personally performed a history and physical examination on the patient. I have reviewed the advanced practitioner's documentation on the date of service referenced in note, and I agree with, and take responsibility for the plan of care. Subjective: Patient without subjective sensation of elevated heart rate. Atrial fibrillation has been present on presentation to the hospital 2 days ago on 04/07/2024. EKG performed this morning 5:25 AM revealed atrial fibrillation with rapid ventricular rate, 104 bpm. Mild nonspecific T wave flattening without definite ischemic changes. Exam: Cardiovascular: Irregular rhythm, no murmurs, no lower extremity edema Abdomen: Abdominal binder in place. Patient showed me a photograph of her abdominal incision from this morning and it was clean dry and intact She notes ongoing postoperative abdominal pain, and has not passed gas Data: Leukocytosis noted on laboratory studies, with a white count of 23.69 yesterday 22.35 today Lactate level 2.7 TSH within normal limits Echocardiogram performed 04/08/2024 revealed normal LV wall motion, LVEF 66 5%, mild to moderate mitral regurgitation with moderate mitral regurgitation noted at time of transesophageal echocardiogram in March, Impression/ Plan: Postop, surgical intervention for small bowel obstruction, 04/07/2024 History of paroxysmal atrial fibrillation, versus atrial fibrillation noted since presentation on 04/07/2024, duration unknown -Although patient is chronically anticoagulated with Eliquis, she has been off of anticoagulation for 48 hours for surgery. -IV amiodarone as well as IV digoxin initiated in the setting of relative low blood pressure and her ventricular rates have improved. She had persistently had a ventricular rate in the 130s at rest and she is down to the 90 to 100 bpm range during my assessment. -It is however concerning that she has been in atrial fibrillation previous 48 hours, without anticoagulation and has not been on amiodarone for approximate 24 hours. I think the most prudent to discontinue the amiodarone and attempt ongoing treatment with IV metoprolol and Idigoxin and did not chemically cardiovert her in the absence of anticoagulation. -Patient's diet has been advanced to a liquid diet. She notes that she is not passing gas yet, and I think would be prudent to proceed with IV metoprolol for rate control as blood pressure allows. Continue with plan to transition to digoxin to oral at this point. -DVT prophylaxis: SCDs -Will need to monitor volume status given IV input with Zosyn. Volume status appears stable at present. Discussed by phone with Dr. Espinoza for the purpose of coordination of care. I spent a total of 25 minutes coordinating, documenting, and providing care for this patient excluding time spent in the performance of separately billed services or time spent by another provider. Dayo Miranda DO History of Present Illness Reason for Consultation: "stubborn A-fib" Requesting Physician: PATRICK Hospitalist Attending Physician: Juan J Espinoza MD History of Present Illness HPI: patient is a 63 year old female with PMHx significant for paroxysmal atrial fibrillation on chronic anticoagulation with apixaban, history of thalassemia, history of right femur osteomyelitis (right leg is 2inches shorter than left), hypertension, JACEY, history of diabetes, RLS, migraines, and history of gastric bypass. She presented to the hospital with severe abdominal pain, nausea and vomiting x [address] abdomen and Pelvis demonstrates closed loop small bowel obstruction. She was taken emergently to the OR for surgical intervention. Patient does not have an established reflexologist at this time. She confirms a known history of A-fib, paroxysmal in nature, but admits that she never feels if she is in A-fib or not. Denies any chest pain pressure, palpitations, no shortness of breath, PND, pre-syncope, syncope or edema. Review of Telemetry demonstrates A-fib/flutter rates 80-120bpm Allergies Allergy/AdvReac Type Severity Reaction Status Date / Time hylan G-F 20 Allergy Severe CAN'T Verified 08/22/23 13:49 REMEMBER mushroom Allergy Intermediate RASH Verified 08/22/23 13:49 Home Medications Medication Instructions Recorded Confirmed Type acetaminophen 500 mg tablet 1,000 mg PO Q8 Pain 10/11/22 07/15/23 History (Tylenol Extra Strength) bagfmipy-kjt-yffqx acid 0.4 1 tab PO QAM 10/11/22 07/15/23 History mg-lycopene 300 mcg-lutein 250 mcg tablet (Centrum Silver) polyethylene glycol 3350 17 gram 17 g PO BID PRN Constipation 10/11/22 07/15/23 History oral powder packet (Miralax) digoxin 125 mcg (0.125 mg) tablet 125 mcg PO QPM #90 tabs 10/24/22 07/15/23 Rx doxepin 100 mg capsule 100 mg PO HS 01/23/23 07/15/23 History cyclobenzaprine 10 mg tablet 10 mg PO TID PRN muscle spasm #30 02/27/23 07/15/23 Rx tabs cyanocobalamin (vitamin B-12) 1,000 mcg PO QAM 04/01/23 07/15/23 History 1,000 mcg capsule ascorbic acid (vitamin C) 500 mg 500 mg PO DAILY 06/19/23 07/15/23 History tablet (Vitamin C) cholecalciferol (vitamin D3) 125 125 mcg PO DAILY 06/19/23 07/15/23 History mcg (5,000 unit) tablet (Vitamin D3) guaifenesin 600 mg tablet, 600 mg PO Q12H 06/19/23 07/15/23 History extended release 12 hr (Mucinex) melatonin 10 mg tablet 20 mg PO HS 06/19/23 07/15/23 History sennosides 8.6 mg-docusate sodium 2 tab-cap PO BID 06/19/23 07/15/23 History 50 mg tablet (Senna Plus) zinc 50 mg tablet 50 mg PO DAILY 06/19/23 07/15/23 History duloxetine 30 mg capsule,delayed 30 mg PO DAILY #30 caps 06/21/23 07/15/23 Rx release ketoconazole 2 % topical cream 1 applic EXT TID PRN rash under 06/21/23 07/15/23 Rx skin folds #15 grams cefadroxil 500 mg capsule 500 mg PO BID #1 cap 07/11/23 07/15/23 Rx metoprolol succinate 50 mg 50 mg PO BID #60 tabs 08/22/23 08/22/23 Rx tablet,extended release 24 hr lisinopril 2.5 mg tablet 2.5 mg PO DAILY #30 tabs 08/23/23 Rx buspirone 10 mg tablet 10 mg PO TID #270 tabs 10/07/23 Rx ropinirole 0.25 mg tablet 0.25 mg PO HS #90 tabs 10/07/23 Rx apixaban 5 mg tablet (Eliquis) 5 mg PO BID 90 days #180 tabs 10/26/23 Rx furosemide 20 mg tablet (Lasix) 20 mg PO DAILY edema #90 tabs 11/20/23 Rx omeprazole 20 mg tablet,delayed 20 mg PO DAILY #90 tabs 11/20/23 Rx release levothyroxine 75 mcg tablet 75 mcg PO DAILY #90 tabs 01/25/24 Rx Patient History Medical History Scabies Poor historian History of COVID-19 July 2020 treated at a hospital in [place] for several days. Weight loss, unintentional History of gastric polyp Hypothyroidism Lyme disease hx On anticoagulant therapy Major depression Anxiety Sleep apnea hx -- since weightloss and gastric bypass surgery no problems with PORTILLO. Atrial fibrillation follows with [facility] Cardiology (Donna Dylon PA-C) dx a year ago. no cardioversions in the past. Acute hyponatremia Pneumonia hx - "years ago" Anemia Iron deficiency anemia GERD (gastroesophageal reflux disease) occasional Chronic heart failure with preserved ejection fraction (HFpEF) PE (pulmonary embolism) 10+ years ago. unsure of cause. Cervical radiculopathy Thalassemia (Unknown) Arthroplasty of knee (Unknown) "bilateral " Surgical History History of section S/P revision of total hip History of bilateral knee arthroplasty History of esophagogastroduodenoscopy (EGD) History of colonoscopy History of cholecystectomy Status post hip surgery R HIP REPLACEMENT REMOVED DUE TO INFX History of bilateral hip replacements Family History Father Colorectal cancer Mother Diabetes Other FHx: throat cancer No family history of adverse response to anesthesia Denies family history of Ovarian cancer Prostate cancer Myocardial infarction Breast cancer Social History Smoking Status: Former smoker Tobacco Type: Cigarettes Second Hand Exposure: No; Do You Dip or Chew Tobacco: No; Tobacco Cessation Education Requested by Patient: No Hx Alcohol Use: Yes Alcohol type: wine Hx Substance Use: Yes Substance Use Type Other:: medical marijuana Preferred Language: Bolivian Communication Ability: Effective Communication Ability Comment: often unable to communicate effectively Visual Impairment: Partially Limited Manager Of Distribution Required: No Beliefs That Will Affect Care: None marital status: Current Living Situation: Alone Current Living Situation Comment: lives alone in apartment, daughter checks on her How many Children do You have: 3 Other Information That Helps Us Care for You: No Feels Safe at Home: Yes Safety Concerns: Feels Safe At This Time Diet: regular caffeine: Yes Dental Care, Regularly: No Physical Activity Frequency: Does not Exercise Seatbelt Use: always Sunscreen Use: Yes Assistive Devices: Scooter/Electric Scooter and Other Review of Systems Review of Systems: All systems reviewed & are unremarkable except as noted in HPI & below Physical Exam Constitutional: well developed and well nourished; no acute distress Neck: normal visual inspection and trachea midline Respiratory: normal respiratory effort; no respiratory distress, no labored breathing and no cough Auscultation: lungs clear to auscultation bilaterally; no crackles, no rales, no rhonchi and no wheezes Cardiovascular: Rate/Rhythm: + irregularly irregular Heart Sounds: normal S1 and normal S2; no murmur Vessels: dorsalis pedis pulses present; no JVD Extremities: no edema Skin: no rashes, warm and dry (midline abd incision closed/well approximated C/D/I. Prince present ) Psychiatric: A+Ox3, euthymic affect Results & Data Vital Signs (Past 12 Hours) Vital Signs Temp Pulse Pulse Resp BP BP Pulse Ox 04/09/24 08:22 125 H 04/09/24 06:58 36.7 C 120 H 20 97/67 L 95 04/09/24 03:25 36.5 C 115 H 16 122/79 93 04/08/24 23:22 128 H 105/74 04/08/24 22:59 127 H 122/81 04/08/24 22:13 36.7 C 127 H 18 122/81 93 04/08/24 21:51 126 H O2 Del Method 04/09/24 08:22 04/09/24 06:58 Room Air 04/09/24 03:25 Room Air 04/08/24 23:22 04/08/24 22:59 04/08/24 22:13 Room Air 04/08/24 21:51 Laboratory Results Cardiac Enzymes 04/09/24 Range/Units 07:36 AST 20 (13-39) U/L CBC 04/09/24 Range/Units 07:36 WBC 22.35 H (4.8-10.8) K/ul RBC 4.42 (4.20-5.40) M/uL Hgb 8.4 L (12.0-16.0) g/dl Hct 26.4 L (37.0-47.0) % Plt Count 304 (130-400) K/uL Neut # (Auto) 19.34 H (1.40-6.50) K/uL Lymph # (Auto) 1.42 (1.20-3.40) K/uL [place] # (Auto) 1.20 H (0.11-0.59) K/uL Eos # (Auto) 0.18 (0.00-0.50) K/uL Baso # (Auto) 0.07 (0.00-0.20) K/uL Comprehensive Metabolic Panel 04/09/24 Range/Units 07:36 Sodium 132 L (136-145) mmol/L Potassium 4.3 (3.5-5.1) mmol/L Chloride 99 (98-107) mmol/L Carbon Dioxide 26 (21-32) mmol/L BUN 13 (6-23) mg/dl Creatinine 0.62 (0.6-1.2) mg/dl Glucose 116 H (70-99(Fasting)) mg/dl Calcium 8.6 (8.6-10.3) mg/dl AST 20 (13-39) U/L ALT 12 (7-52) U/L Alkaline Phosphatase 117 H (34-104) U/L Total Protein 6.8 (6.0-8.3) gm/dl Albumin 3.4 (3.4-5.0) gm/dl Intake and Output 04/08/24 04/09/24 04/09/24 22:59 06:59 14:59 Intake Total 832.951 / 4029.733 1696.782 / 4029.733 Balance 832.951 / 3829.733 1696.782 / 3829.733 Intake: IV 382.951 / 3379.733 1496.782 / 3379.733 Acetaminophen 1,000 mg In 100 100 / 200 100 / 200 ml @ 400 mls/hr IV Q8H RAMIREZ Rx#: [id number] Amiodarone / D5w 360 mg In 200 87.118 / 283.900 196.782 / 283.900 ml @ 0.5 MG/MIN 16.667 mls/hr IV .Q12H RAMIREZ Rx#:[id number] Magnesium Sulfate / D5w 1 gm In 95.833 / 195.833 100 / 195.833 100 ml @ 50 mls/hr IV Q2H RAMIREZ Rx#:[id number] Piperacillin/Tazobactam 4.5 gm 100 / 300 100 / 300 In 100 ml @ 25 mls/hr IV Q8H RAMIREZ Rx#:[id number] Sodium Chloride 0.9% 1,000 ml @ 1000 / 2000.000 85 mls/hr IV .[id number] RAMIREZ Rx#: [id number] Oral 450 / 650 200 / 650 Other: # Unmeasured Voids 1 1 # Urine Diapers 1 Weight 76.5 kg Weight Measurement Method Built in [facility]
--- NOTE | 2024-04-09 11:29 | Electrocardiogram Report ---
Test Reason : Blood Pressure : */* mmHG Vent. Rate : 124 BPM Atrial Rate : 141 BPM P-R Int : * ms QRS Dur : 78 ms QT Int : 306 ms P-R-T Axes : * 68 30 degrees QTcB Int : 439 ms Atrial fibrillation with rapid ventricular response Abnormal ECG When compared with ECG of 08-Apr-2024 06:38, No significant change was found Confirmed by Jhonathan Reyes ([id number]) on 04/09/2024 11:28:46 AM Referred By: REFERRED SELF Confirmed By: Jhonathan Reyes
[2024-04-09] MEDS: AMIODARONE 360MG / 200ML D5W IV ONE (13:19)
[2024-04-09] MEDS: DIGOXIN 0.125 MG TAB PO SCH (16:11)
[2024-04-09] MEDS: METOPROLOL TARTRATE 1 MG/ML VIAL IV ONE (16:12)
--- NOTE | 2024-04-09 16:36 | Hospitalist Progress Note ---
Date of Service April 09, 2024 Assessment & Plan (1) Small bowel obstruction: Plan: Acute ischemia of small intestine, 04/07/24 taken emergently to the OR by general surgery Dr. Campuzano Small bowel obstruction/intractable nausea vomiting/abdominal pain/history of gastric bypass- unclear oral intake oral meds for afib control will try lower dose metoprolol given now take some po continue liquid diet for bloating Zosyn 4.5 g IV every 8 hours Pantoprazole 40 mg IV daily encourage po intake (2) Atrial fibrillation with RVR: Plan: is chronic afib with eliquis typically Patient did receive Kcentra for reversal of anticoagulation due to apixaban having missed her digoxin and metoprolol succinate dosages Digoxin level was less than 0.3, atrial fibrillation has been difficult to control. Amiodarone is held due to its now being 48 hours off anticoagulation. Continuing with digoxin and metoprolol and will restart Eliquis when concerns for surgical expiration of past. If this drags forward we may consider IV heparin. (3) Generalized anxiety disorder: Plan: Generalized anxiety disorder- Holding duloxetine, doxepin, cyclobenzaprine, and buspirone, and will be resumed post surgery when taking p.o. Plan Diabetes mellitus- On no recent medications no further checking needed A1c 5.5 Admission and Anticipated Discharge Date Admission Date: April 07, 2024 Subjective pt is doing well, heart rate is in better control abdominal pain is improving but bloating persists and surg wants to keep on clears Physical Exam Physical Exam: irregular tachycardia heart rhythm lungs are clear abd is soft, tender in LLQ slightly distended Results & Data Results & Data Vital Signs (Past 12 Hours) Vital Signs Temp Pulse Pulse Resp BP Pulse Ox O2 Del Method 04/09/24 16:20 97 H 04/09/24 16:12 110 H 04/09/24 16:11 110 H 04/09/24 14:00 98.2 F 98 H 18 112/71 Room Air 04/09/24 11:33 98.1 F 88 18 101/63 96 Room Air 04/09/24 10:50 101 H 04/09/24 08:22 125 H 04/09/24 06:58 98.1 F 120 H 20 97/67 L 95 Room Air Laboratory Results review cbc review chemistry lactic acid improving PG Care Time/CCT Total # of Minutes Spent Total Time Spent with Patient: Total time spent is greater than 50% in coordination of care (as documented) at patient's floor/unit and/or counseling patient: Coding Level of Care Code 83162 SUB INP/OBS CARE MIN Diagnoses Small bowel obstruction K56.609 Atrial fibrillation with RVR I48.91 Generalized anxiety disorder F41.1
[2024-04-09] MEDS: METOPROLOL TARTRATE 1 MG/ML VIAL IV SCH (18:12)
[2024-04-09] MEDS ORDERED: METOPROLOL SUCC 25MG EXT REL TAB PO SCH (21:00)
[2024-04-09] MEDS: MELATONIN 3 MG TAB PO PRN (22:33)
[2024-04-10 07:54] LABS: Basophils # (auto) 0.04 K/uL (0.00-0.20); Basophils % (auto) 0.3 %; Eosinophils # (auto) 0.59 K/uL (0.00-0.50); Hematocrit (blood only) 27.6 % (37.0-47.0); Hemoglobin 8.6 g/dl (12.0-16.0); Immature Granulocytes # (auto) 0.05 K/uL (0.01-0.20); Immature Granulocytes % (auto) 0.3 %; Lymphocytes # (auto) 1.05 K/uL (1.20-3.40); Lymphocytes % (auto) 7.1 %; Mean Corpuscular Hemoglobin 18.7 pg (25.0-34.0); Mean Corpuscular Hgb Conc 31.2 g/dL (32.0-36.0); Monocytes % (auto) 5.4 %; Neutrophils # (auto) 12.36 K/uL (1.40-6.50); Neutrophils % (auto) 82.9 %; RDW Coefficient of Variation 16.1 % (11.5-14.5); RDW Standard Deviation 33.6 fL (36.4-46.3); White Blood Count 14.89 K/ul (4.8-10.8)
[2024-04-10 08:08] LABS: Albumin Level 3.4 gm/dl (3.4-5.0); BUN Creatinine Ratio 14.3 (10-20); Bilirubin,Total 0.8 mg/dl (0.2-1.0); Creatinine Clr Calc Pharmacy 86.2 ml/min; Globulin 3.5 gm/dl (2.5-4.0); Phosphorus 3.4 mg/dl (2.5-4.9); Potassium 4.6 mmol/L (3.5-5.1); Total Protein 6.9 gm/dl (6.0-8.3)
[2024-04-10 08:09] LABS: Mean Platelet Volume 9.8 fL (9.4-12.4); Platelet Count 309 K/uL (130-400)
[2024-04-10 08:30] LABS: Hypochromasia Present; Microcytosis Present; Polychromasia 1+; Target Cells 1+
--- NOTE | 2024-04-10 08:36 | Cardiology Progress Note ---
Date of Service April 10, 2024 Assessment & Plan (1) Small bowel obstruction: (2) Atrial fibrillation with RVR: Plan Assessment: 63 year old female with history of Gastric bypass presents with intractable N/V and abdominal pain with CT findings demonstrating a SBO sent for emergent surgery. Plan: Small Bowel obstruction -s/p exploratory lap and release of SBO -Feeling marked improvement today. Tolerating clear liquids. -Continued management per primary team and General surgery. Still high risk for Ileus. Atrial fibrillation with RVR: -Patient with known history of P. 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 -Patient's home medications included Toprol xl 50mg PO BID. Will transition from Lopressor back to her home Toprol xl but at 25mg PO BID, and titrate up as appropriate with HR and BPs. -Currently on amiodarone gtt. Will discuss this with Dr. Miranda as patient was previously on PO Digoxin at home. Rates are improving/controlled on amiodarone gtt -Eliquis remains on hold today due to post op status. Would recommend consideration to restart when OK with General surgery and if H/H remains stable. -[id number] Score 2 (Gender and HTN) -Euvolemic on exam. -Echocardiogram is pending 04/10/2024: -Patient continues with elevated HR's although is experiencing a lot of post surgical discomfort. -Patient is not passing flatulence at this time and therefore we have kept her beta brianna regimen to IV form with Metoprolol tartrate 5mg IV Q6H. Once able to transition to PO medications, would recommend that she be transitioned back to her home dose of Metoprolol succinate, but start at 25mg PO BID and titrate up as needed. -Give one time dose of Digoxin today 0.125mg today, in hopes of restarting her home regimen of PO Digoxin tomorrow 0.125mg PO Daily. -Advised against amiodarone gtt as patient has been without anticoagulation > 48 hours. Recommend restarting oral Anticoagulation with Eliquis 5mg PO BID as soon as cleared by general surgery and if H/H remains stable. --[id number] Score 2 (Gender and HTN) -Euvolemic on exam. -Echocardiogram completed LV systolic function is normal LVEF 60-65%, mild to moderate MR. No regional wall motion abnormalities. Case has been discussed with Dr. Miranda. Further recommendations regarding plan of care as per his assessment. I spent a total of 30 minutes on the date of service in preparation, delivery, documentation of the care provided to the patient excluding any time spent in the performance of separately billed services. AGNES Schaefer [facility] Cardiology [facility] Admission and Anticipated Discharge Date Admission Date: April 07, 2024 Supervising Physician Co-Signing Physician Notes Attending attestation: Case reviewed with the advanced practitioner. I have personally performed a history and physical examination on the patient. I have reviewed the advanced practitioner's documentation on the date of service referenced in note, and I agree with, and take responsibility for the plan of care. Considered starting oral metoprolol, however patient is not passing any gas and lactate level was 2.7 on 04/09/24 and 2.4 on 04/10/24. Patient denies CP, SOB, or subjective palpitations. Dose IV digoxin, and resume BARREL MAKER oral digoxin. Increase IV metoprolol to 7.5 mg IV q 6 hours. Resume Eliquis when OK with surgery. Will continue to follow. -DVT prophylaxis: SCDs I spent a total of 25 minutes coordinating, documenting, and providing care for this patient excluding time spent in the performance of separately billed services or time spent by another provider. Dayo Miranda, Subjective 04/10/2024: Patient seen and examined in follow up today. Feeling fair. she endorses some generalized abdominal pain after working with PT/OT. nurse is getting her pain medications at this time. She endorses that she is burping, but not passing any flatulence. Labs, vitals, diagnostics, telemetry and documentation reviewed. Telemetry reviewed showing Atrial fib/Atrial flutter with rates 110-170 (170 with activity) WBC trending down. Denies any chest pain, pressure, palpitations, no shortness of breath, PND, pre- syncope, syncope or edema. Review of Systems Review of Systems: All systems reviewed & are unremarkable except as noted in HPI & below Physical Exam Constitutional: well developed and well nourished; no acute distress Neck: normal visual inspection and trachea midline Respiratory: normal respiratory effort; no respiratory distress, no labored breathing and no cough Auscultation: lungs clear to auscultation bilaterally; no crackles, no rales, no rhonchi and no wheezes Cardiovascular: Rate/Rhythm: + irregularly irregular Heart Sounds: normal S1 and normal S2; no murmur Vessels: dorsalis pedis pulses present; no JVD Extremities: no edema Skin: no rashes, warm and dry (midline abd incision closed/well approximated C/D/I. Prince present ) Psychiatric: A+Ox3, euthymic affect Results & Data Vital Signs (Past 12 Hours) Vital Signs Temp Pulse Pulse Resp BP BP Pulse Ox 04/10/24 07:30 36.9 C 123 H 18 99/65 L 100 04/10/24 05:54 116 H 110/70 04/10/24 05:00 152 H 126/78 04/10/24 04:38 36.8 C 117 H 126/78 94 04/10/24 03:02 36.5 C 108 H 18 97/68 L 95 04/09/24 23:35 105 H 110/70 04/09/24 23:32 36.7 C 107 H 18 117/77 95 04/09/24 23:05 159 H 120/81 O2 Del Method 04/10/24 07:30 Room Air 04/10/24 05:54 04/10/24 05:00 04/10/24 04:38 Room Air 04/10/24 03:02 Room Air 04/09/24 23:35 04/09/24 23:32 Room Air 04/09/24 23:05 Laboratory Results Cardiac Enzymes 04/10/24 Range/Units 07:29 AST 17 (13-39) U/L CBC 04/10/24 Range/Units 07:29 WBC 14.89 H (4.8-10.8) K/ul RBC 4.60 (4.20-5.40) M/uL Hgb 8.6 L (12.0-16.0) g/dl Hct 27.6 L (37.0-47.0) % Plt Count 309 (130-400) K/uL Neut # (Auto) 12.36 H (1.40-6.50) K/uL Lymph # (Auto) 1.05 L (1.20-3.40) K/uL [place] # (Auto) 0.80 H (0.11-0.59) K/uL Eos # (Auto) 0.59 H (0.00-0.50) K/uL Baso # (Auto) 0.04 (0.00-0.20) K/uL Comprehensive Metabolic Panel 04/10/24 Range/Units 07:29 Sodium 131 L (136-145) mmol/L Potassium 4.6 (3.5-5.1) mmol/L Chloride 96 L (98-107) mmol/L Carbon Dioxide 30 (21-32) mmol/L BUN 10 (6-23) mg/dl Creatinine 0.70 (0.6-1.2) mg/dl Glucose 109 H (70-99(Fasting)) mg/dl Calcium 9.0 (8.6-10.3) mg/dl AST 17 (13-39) U/L ALT 13 (7-52) U/L Alkaline Phosphatase 109 H (34-104) U/L Total Protein 6.9 (6.0-8.3) gm/dl Albumin 3.4 (3.4-5.0) gm/dl Intake and Output 04/09/24 04/10/24 04/10/24 22:59 06:59 14:59 Intake Total 1518.75 / 2525.352 200 / 2525.352 Output Total 1200 / 1700 500 / 1700 Balance 318.75 / 825.352 -300 / 825.352 Intake: IV 1518.75 / 2025.352 200 / 2025.352 Acetaminophen 1,000 mg In 100 100 / 300 100 / 300 ml @ 400 mls/hr IV Q8H RAMIREZ Rx#: [id number] Amiodarone / D5w 360 mg In 200 0 / 106.602 ml @ 0.5 MG/MIN 16.667 mls/hr IV .Q12H RAMIREZ Rx#:[id number] Piperacillin/Tazobactam 4.5 gm 100 / 300 100 / 300 In 100 ml @ 25 mls/hr IV Q8H RAMIREZ Rx#:[id number] Sodium Chloride 0.9% 1,000 ml @ 1318.75 / 1318.75 85 mls/hr IV .[id number] RAMIREZ Rx#: [id number] Output: Urine 1200 / 1200 Urine Amount (Catheter) 500 / 500 External 500 / 500 Other: Weight 76.3 kg Weight Measurement Method Built in [facility]
--- NOTE | 2024-04-10 09:14 | Surgery Progress Note ---
Date of Service April 10, 2024 Assessment & Plan (1) Small bowel obstruction: Plan: POD#3 ex lap and release of small bowel obstruction WBC down trending 14 (22), afebrile , denies f/c Lactate was noted to 2.7 yesterday, ordered for repeat today pending Pt complains of abdominal discomfort, better than yesterday Abdomen soft, mildly distended, dressing removed estela CDI no drainage on clear liquids no n/v , feeling bloated would NOT advance diet past clears until return of bowel function may have creamer in coffee encouraged movement yesterday, OOB to chair , sitting at edge of bed, however pt denies any of this. Education on movement to facilitate bowel return, pt stated she will "move when PT comes in" and agreed to sit up at edge of bed Pt may benefit from rehab at D/C, she reports a leg length discrepancy which causes discomfort while walking and reports she is aware that she can get special shoes/insoles however has not obtained them to date. Will discuss with CM and see if we can assist with this, while house? [facility] covering the weekend as above. doing as expected. awaiting return of bowel fx. stay on clears until bowel fx improves. high risk for ileus. Admission and Anticipated Discharge Date Admission Date: April 07, 2024 Subjective pt reports abd is better than yesterday however still present Denies n/v , no flatus or BM did not get OOB yesterday or sit at edge of bed pt stated "will move with physical therapy " Review of Systems Constitutional: no fever and no chills Respiratory: no dyspnea Cardiovascular: no chest pain Gastrointestinal: + abdominal pain and + bloating; no naus ea and no vomiting Genitourinary: + urinary incontinence Physical Exam Constitutional: cooperative and comfortable; no acute distress Respiratory: normal respiratory effort and able to speak in complete sentences; no respiratory distress Gastrointestinal (Abdomen): Inspection/Auscultation: + abdomen distended and + abdominal surgical incision (staple CDI ) Percussion/Palpation: + abdomen tender and abdomen soft Results & Data Vital Signs (Past 12 Hours) Vital Signs Temp Pulse Pulse Resp BP BP Pulse Ox 04/10/24 07:30 98.4 F 123 H 18 99/65 L 100 04/10/24 05:54 116 H 110/70 04/10/24 05:00 152 H 126/78 04/10/24 04:38 98.2 F 117 H 126/78 94 04/10/24 03:02 97.7 F 108 H 18 97/68 L 95 04/09/24 23:35 105 H 110/70 04/09/24 23:32 98.1 F 107 H 18 117/77 95 04/09/24 23:05 159 H 120/81 O2 Del Method 04/10/24 07:30 Room Air 04/10/24 05:54 04/10/24 05:00 04/10/24 04:38 Room Air 04/10/24 03:02 Room Air 04/09/24 23:35 04/09/24 23:32 Room Air 04/09/24 23:05 Results CBC w Diff Results: RBC 4.60 M/uL (4.20-5.40) 04/10/24 WBC 14.89 K/ul (4.8-10.8) H 04/10/24 Hgb 8.6 g/dl (12.0-16.0) L 04/10/24 Hct 27.6 % (37.0-47.0) L 04/10/24 MCV 60.0 fL (80.0-100.0) L 04/10/24 MCH 18.7 pg (25.0-34.0) L 04/10/24 MCHC 31.2 g/dL (32.0-36.0) L 04/10/24 RDW Standard Deviation 33.6 fL (36.4-46.3) L 04/10/24 RDW Coefficient of Variation 16.1 % (11.5-14.5) H 04/10/24 Plt Count 309 K/uL (130-400) 04/10/24 MPV 9.8 fL (9.4-12.4) 04/10/24 Nucleated Red Blood Cells % (auto) 0.2 % 04/09 Nucleated RBC Absolute Count (auto) 0.05 K/uL (0.00-0.12) 1 Neutrophils (%) (Auto) 82.9 % 04/10/24 Lymphocytes (%) (Auto) 7.1 % 04/10/24 Monocytes # (Auto) 0.80 K/uL (0.11-0.59) H 04/10/24 Eosinophils # (Auto) 0.59 K/uL (0.00-0.50) H 04/10/24 Immature Granulocyte % (Auto) 0.3 % 04/10/24 Neutrophils # (Auto) 12.36 K/uL (1.40-6.50) H 04/10/24 Lymphocytes # (Auto) 1.05 K/uL (1.20-3.40) L 04/10/24 Monocytes # (Auto) 0.80 K/uL (0.11-0.59) H 04/10/24 Eosinophils # (Auto) 0.59 K/uL (0.00-0.50) H 04/10/24 Basophils # (Auto) 0.04 K/uL (0.00-0.20) 04/10/24 Immature Granulocyte # (Auto) 0.05 K/uL (0.01-0.20) 4 Polychromasia 1+ 04/10/24 Hypochromasia Present 04/10/24 Poikilocytosis Present 06/21/23 Echinocytes 1+ 03/02/23 Anisocytosis Present 04/07/24 Microcytosis Present 04/10/24 Spherocytes 1+ 01/11/22 Target Cells 1+ 04/10/24 Tear Drop Cells 1+ 04/09/24 Ovalocytes 1+ 05/13/23 Dohle Bodies 1+ 03/21/23 Rouleau 1+ 03/20/23 Schistocytes 1+ 04/14/23 PG Care Time/CCT Total # of Minutes Spent Total Time Spent with Patient: Total time spent is greater than 50% in coordination of care (as documented) at patient's floor/unit and/or counseling patient: Coding Level of Care Code 72445 Post Operative Follow-Up Diagnoses Small bowel obstruction K56.609
[2024-04-10] MEDS: DIGOXIN 125 MCG in SYRINGE 9.5 ML IV ONE (12:03)
[2024-04-10] MEDS ORDERED: MoRPHine SULFATE 2 MG/ML CARP IV PRN (13:13)
[2024-04-10] MEDS ORDERED: METOPROLOL TARTRATE 25 MG TAB PO ONE (13:43)
[2024-04-10] MEDS ORDERED: METOPROLOL TARTRATE 25 MG TAB PO SCH (14:00)
--- NOTE | 2024-04-10 15:09 | Hospitalist Progress Note ---
Date of Service April 10, 2024 Assessment & Plan (1) Small bowel obstruction: Plan: Acute ischemia of small intestine, 04/07/24 taken emergently to the OR by general surgery Dr. Campuzano Small bowel obstruction/intractable nausea vomiting/abdominal pain/history of gastric bypass- unclear oral intake oral meds for afib control will try lower dose metoprolol given now take some po continue liquid diet for bloating Zosyn 4.5 g IV every 8 hours Pantoprazole 40 mg IV daily encourage po intake (2) Atrial fibrillation with RVR: Plan: is chronic afib with eliquis typically Patient did receive Kcentra for reversal of anticoagulation due to apixaban having missed her digoxin and metoprolol succinate dosages Digoxin level was less than 0.3, atrial fibrillation has been difficult to control. Amiodarone is held due to its now being 48 hours off anticoagulation. Continuing with digoxin and metoprolol and will restart Eliquis when concerns for surgical expiration of past. If this drags forward we may consider IV heparin. (3) Generalized anxiety disorder: Plan: Generalized anxiety disorder- Holding duloxetine, doxepin, cyclobenzaprine, and buspirone, and will be resumed post surgery when taking p.o. Plan Diabetes mellitus- On no recent medications no further checking needed A1c 5.5 Admission and Anticipated Discharge Date Admission Date: April 07, 2024 Subjective Still has bloating of her abdomen still in atrial fibrillation RVR cardiology is helping manage medications include metoprolol and digoxin. Initiate anticoagulation once away from surgical concern if prolonged may consider intravenous heparin if we can stop and reversed more quickly Physical Exam Physical Exam: irregular tachycardia heart rhythm lungs are clear abd is soft, tender in LLQ slightly distended Results & Data Results & Data Vital Signs (Past 12 Hours) Vital Signs Temp Pulse Pulse Resp BP BP Pulse Ox 04/10/24 12:03 110 H 04/10/24 12:02 102 H 04/10/24 11:29 132 H 04/10/24 11:18 93/62 L 04/10/24 10:38 128 H 98 04/10/24 10:37 98.2 F 18 86/62 L 04/10/24 07:30 98.4 F 123 H 18 99/65 L 100 04/10/24 05:54 116 H 110/70 04/10/24 05:00 152 H 126/78 04/10/24 04:38 98.2 F 117 H 126/78 94 O2 Del Method O2 Flow Rate 04/10/24 12:03 04/10/24 12:02 04/10/24 11:29 04/10/24 11:18 04/10/24 10:38 Nasal Cannula 2 04/10/24 10:37 04/10/24 07:30 Room Air 04/10/24 05:54 04/10/24 05:00 04/10/24 04:38 Room Air Laboratory Results Reviewed CBC reviewed chemistry PG Care Time/CCT Total # of Minutes Spent Total Time Spent with Patient: Total time spent is greater than 50% in coordination of care (as documented) at patient's floor/unit and/or counseling patient: Coding Level of Care Code 18655 SUB INP/OBS CARE 2MIN Diagnoses Small bowel obstruction K56.609 Atrial fibrillation with RVR I48.91 Generalized anxiety disorder F41.1
[2024-04-10] MEDS: METOPROLOL TARTRATE 1 MG/ML VIAL IV SCH (15:32)
[2024-04-10 18:01] LABS: Codeine Urine NEGATIVE ng/mL (<50); Fentanyl, Urine 27.8 ng/mL (<0.5); Hydrocodone Urine NEGATIVE ng/mL (<50); Hydromor Urine 302 ng/mL (<50); MDA negative; MDEA negative; MDMA (Ecstasy) Urine, Confirm negative; Marijuana Quant, GCMS Urine 2587 ng/mL (<5); Morphine Urine 3740 ng/mL (<50); Norfentanyl, Urine 38.1 ng/mL (<0.5); Norhydrocodone Conf Ur NEGATIVE ng/mL (<50); Noroxycodone Urine NEGATIVE ng/mL (<50); Oxycodone Urine NEGATIVE ng/mL (<50); Oxymorph Urine NEGATIVE ng/mL (<50); medMATCH Fentanyl, Urine DNR; medMATCH Norfentanyl, Urine DNR
[2024-04-10] MEDS: MoRPHine SULFATE 4 MG/ML 1 ML CARP\\VIAL IV PRN (19:23)
[2024-04-10] MEDS: MoRPHine SULFATE 2 MG/ML CARP IV STA (23:56)
--- NOTE | 2024-04-11 07:31 | Hospitalist Progress Note ---
Date of Service April 11, 2024 Assessment & Plan (1) Small bowel obstruction: Plan: Acute ischemia of small intestine, 04/07/24 taken emergently to the OR by general surgery Dr. Campuzano Small bowel obstruction/intractable nausea vomiting/abdominal pain/history of gastric bypass- unclear oral intake oral meds for afib control will try lower dose metoprolol given now take some po continue liquid diet for bloating increased pain med requirement 04/[address] abd/pelvixc Zosyn 4.5 g IV every 8 hours Pantoprazole 40 mg IV daily encourage po intake (2) Atrial fibrillation with RVR: Plan: is chronic afib with eliquis typically Patient did receive Kcentra for reversal of anticoagulation due to apixaban having missed her digoxin and metoprolol succinate dosages Digoxin level was less than 0.3, atrial fibrillation has been difficult to control. Amiodarone is held due to its now being 48 hours off anticoagulation. Continuing with digoxin and iv metoprolol 7.5 mg q 6 hrs and will restart Eliquis when concerns for surgical expiration of past. If this drags forward we may consider IV heparin. (3) Generalized anxiety disorder: Plan: Generalized anxiety disorder- Holding duloxetine, doxepin, cyclobenzaprine, and buspirone, and will be resumed post surgery when taking p.o. Plan Diabetes mellitus- On no recent medications no further checking needed A1c 5.5 Admission and Anticipated Discharge Date Admission Date: April 07, 2024 Subjective a fib rate control improving, pt with increase demand for pain medicines, does have history of challenges with substances, however with c/o increased abdominal pain will have CT Physical Exam Physical Exam: irregular tachycardia heart rhythm lungs are clear abd is soft, m=miuldly tender b/l not acute abdomen Results & Data Results & Data Vital Signs (Past 12 Hours) Vital Signs Temp Pulse Pulse Resp BP BP BP 04/11/24 07:15 98.1 F 97 H 20 127/86 04/11/24 06:35 87 04/11/24 06:10 136 H 122/70 04/11/24 03:17 98.1 F 115 H 18 129/80 04/11/24 00:13 83 108/66 04/10/24 23:00 138 H 04/10/24 22:32 98.6 F 149 H 18 119/75 04/10/24 19:55 Pulse Ox O2 Del Method 04/11/24 07:15 96 Room Air 04/11/24 06:35 04/11/24 06:10 04/11/24 03:17 93 Room Air 04/11/24 00:13 04/10/24 23:00 04/10/24 22:32 97 Room Air 04/10/24 19:55 Room Air Laboratory Results reveiw cbc reviwe chemsistry digoxin therapeutic PG Care Time/CCT Total # of Minutes Spent Total Time Spent with Patient: Total time spent is greater than 50% in coordination of care (as documented) at patient's floor/unit and/or counseling patient: Coding Level of Care Code 37834 SUB INP/OBS CARE 3/50MIN Diagnoses Small bowel obstruction K56.609 Atrial fibrillation with RVR I48.91 Generalized anxiety disorder F41.1
[2024-04-11 09:10] LABS: Hematocrit (blood only) 26.9 % (37.0-47.0); Hemoglobin 8.5 g/dl (12.0-16.0); Mean Corpuscular Hemoglobin 18.9 pg (25.0-34.0); Mean Corpuscular Hgb Conc 31.6 g/dL (32.0-36.0); Mean Corpuscular Volume 59.9 fL (80.0-100.0); Mean Platelet Volume 9.3 fL (9.4-12.4); Nucleated RBC # (auto) 0.02 K/uL (0.00-0.12); Nucleated RBC % (auto) 0.2 %; Platelet Count 353 K/uL (130-400); RDW Coefficient of Variation 15.5 % (11.5-14.5); RDW Standard Deviation 32.6 fL (36.4-46.3); Red Blood Count 4.49 M/uL (4.20-5.40); White Blood Count 12.18 K/ul (4.8-10.8)
[2024-04-11 09:24] LABS: BUN Creatinine Ratio 13.7 (10-20); Calcium 8.8 mg/dl (8.6-10.3); Creatinine Clr Calc Pharmacy 82.2 ml/min; Potassium 4.6 mmol/L (3.5-5.1)
[2024-04-11] MEDS ORDERED: oxyCODONE HCL IR 5 MG TAB (IMMEDIATE RELEASE) PO PRN (09:25)
[2024-04-11] MEDS: MoRPHine SULFATE 4 MG/ML 1 ML CARP\\VIAL IV PRN (09:35)
--- NOTE | 2024-04-11 10:00 | Cardiology Progress Note ---
Date of Service April 11, 2024 Assessment & Plan (1) Small bowel obstruction: (2) Atrial fibrillation with RVR: Plan Assessment: 63 year old female with history of Gastric bypass presents with intractable N/V and abdominal pain with CT findings demonstrating a SBO sent for emergent surgery. Plan: Small Bowel obstruction -s/p exploratory lap and release of SBO Patient notes flatulence overnight last night. Still with poor appetite. She is allowed a liquid diet, but is really not eaten much today. Continue oral digoxin 0.125 mg p.o. daily Continue IV metoprolol, 7.5 mg IV every 6 hours. Per review of telemetry, immediately after receiving the metoprolol doses, her heart rates are relatively well-controlled. Anticipate heart rates will improve as her postoperative recovery improves. SCDs for DVT prophylaxis. Resume Eliquis for stroke prophylaxis when felt reasonable from a postoperative bleeding standpoint. Dayo Miranda, Admission and Anticipated Discharge Date Admission Date: April 07, 2024 Subjective Patient seen in cardiology follow-up. Telemetry reveals average heart rate of around 113 bpm, up to 160 bpm with activity. Patient still mostly bedbound. Still complains of diffuse abdominal discomfort and was requesting pain medications during my assessment. Denies subjective palpitations, or shortness of breath. Physical Exam Constitutional: well developed and well nourished; no acute distress Neck: normal visual inspection and trachea midline Respiratory: normal respiratory effort; no respiratory distress, no labored breathing and no cough Auscultation: lungs clear to auscultation bilaterally; no crackles, no rales, no rhonchi and no wheezes Cardiovascular: Rate/Rhythm: + irregularly irregular Heart Sounds: normal S1 and normal S2; no murmur Vessels: dorsalis pedis pulses present; no JVD Extremities: no edema Skin: no rashes, warm and dry (midline abd incision closed/well approximated C/D/I. Rosser present ) Psychiatric: A+Ox3, euthymic affect Results & Data Vital Signs (Past 12 Hours) Vital Signs Temp Pulse Pulse Resp BP BP BP 04/11/24 07:15 36.7 C 97 H 20 127/86 04/11/24 06:35 87 04/11/24 06:10 136 H 122/70 04/11/24 03:17 36.7 C 115 H 18 129/80 04/11/24 00:13 83 108/66 10/11/24 23:00 138 H 04/10/24 22:32 37.0 C 149 H 18 119/75 Pulse Ox O2 Del Method 04/11/24 07:15 96 Room Air 04/11/24 06:35 04/11/24 06:10 04/11/24 03:17 93 Room Air 04/11/24 00:13 04/10/24 23:00 04/10/24 22:32 97 Room Air Laboratory Results Digoxin level today, 04/11/2024 1 NG per mL
--- NOTE | 2024-04-11 11:48 | Surgery Progress Note ---
Date of Service April 11, 2024 Assessment & Plan (1) Small bowel obstruction: Plan: POD#4 ex lap and release of small bowel obstruction WBC 12 Vitals show afib with HRs 120+. BP stable, pt afebrile Pt complains of abdominal pain not well managed on current regimen Abdomen soft, non distended, with surgical dressings c/d/i on clears CT scan pending per medicine this am Admission and Anticipated Discharge Date Admission Date: April 07, 2024 Subjective Doing okay. States that she has a lot of pain. Started passing flatus this m orning. No fevers or chills overnight. Physical Exam Physical Exam: awake/alert, no distress Gastrointestinal (Abdomen): Inspection/Auscultation: + abdominal surgical incision (surgical dressings c/d/i); abdomen not distended Percussion/Palpation: + abdomen tender (expected post op discomfort ) and abdomen soft Results & Data Vital Signs (Past 12 Hours) Vital Signs Temp Pulse Pulse Resp BP BP Pulse Ox 04/11/24 11:35 150 H 150/84 H 04/11/24 11:22 36.4 C L 164 H 18 143/89 H 94 04/11/24 07:15 36.7 C 97 H 20 127/86 96 04/11/24 06:35 87 04/11/24 06:10 136 H 122/70 04/11/24 03:17 36.7 C 115 H 18 129/80 93 04/11/24 00:13 83 108/66 O2 Del Method 04/11/24 11:35 04/11/24 11:22 Room Air 04/11/24 07:15 Room Air 04/11/24 06:35 04/11/24 06:10 04/11/24 03:17 Room Air 04/11/24 00:13 Laboratory Results 04/11/24 04/08/24 Range/Units 08:49 01:42 WBC 12.18 H (4.8-10.8) K/ul RBC 4.49 (4.20-5.40) M/uL Hgb 8.5 L (12.0-16.0) g/dl Hct 26.9 L (37.0-47.0) % MCV 59.9 L (80.0-100.0) fL MCH 18.9 L (25.0-34.0) pg MCHC 31.6 L (32.0-36.0) g/dL RDW Std Deviation 32.6 L (36.4-46.3) fL RDW Coeff of Fredrick 15.5 H (11.5-14.5) % Plt Count 353 (130-400) K/uL MPV 9.3 L (9.4-12.4) fL Absolute Nucleated RBC 0.02 (0.00-0.12) K/uL Nucleated RBC % (auto) 0.2 % Sodium 132 L (136-145) mmol/L Potassium 4.6 (3.5-5.1) mmol/L Chloride 97 L (98-107) mmol/L Carbon Dioxide 30 (21-32) mmol/L Anion Gap 5 (3-11) BUN 10 (6-23) mg/dl Creatinine 0.73 (0.6-1.2) mg/dl Est Cr Clr Drug Dosing 82.2 ml/min eGFR 93.51 BUN/Creatinine Ratio 13.7 (10-20) Glucose 118 H (70-99(Fasting)) mg/dl Calcium 8.8 (8.6-10.3) mg/dl Digoxin 1.0 (0.8-2.0) ng/ml U Codeine Confrm GC/MS NEGATIVE (<50) ng/mL Ur Morphine (GC/MS) 3740 H (<50) ng/mL Ur Hydrocodone (GC/MS) NEGATIVE (<50) ng/mL Ur Norhydrocodone NEGATIVE (<50) ng/mL Ur Noroxycodone NEGATIVE (<50) ng/mL Urine Oxycodone (GC/MS) NEGATIVE (<50) ng/mL U Oxymorphone GC/MS NEGATIVE (<50) ng/mL Ur Hydromorphone (GC/MS) 302 H (<50) ng/mL Fentanyl Comments SEE NOTE Drug Monitor Fentanyl DNR Fentanyl Confirmation 27.8 H (<0.5) ng/mL Drug Monitor Norfentanyl DNR Ur Norfentanyl Confirm 38.1 H (<0.5) ng/mL Urine MDEA negative MDMA negative Urine MDMA negative U Marijuana THC Carboxy 2587 H (<5) ng/mL Drug Screen Comment SEE NOTE Toxicology Comment SEE NOTE Drug Monitor Historic Res DNR
[2024-04-11] MEDS: MoRPHine SULFATE 2 MG/ML CARP IV PRN (12:06)
[2024-04-11] MEDS: OPTIRAY 320 100ml IV ONE (12:37)
--- NOTE | 2024-04-11 14:23 | CT Scan Report ---
ABDOMEN AND PELVIS CT WITH IV AND ORAL CONTRAST CT DOSE: 1244.45 mGy.cm HISTORY: Acute generalized abdominal pain with bowel obstruction. Progressive abdominal distention. P OD#4 ex lap and release of small bowel obstruction recent closed loop sbo increasing pain TECHNIQUE: Multiaxial CT images of the abdomen and pelvis were performed following the IV administrat ion of 94 cc of Optiray and oral contrast. A dose lowering technique was utilized adhering to the pr inciples of NOMI. COMPARISON STUDY: 04/07/2024 FINDINGS: Cardiomegaly with trace pleural effusions and linear bibasilar consolidation favoring atele ctasis. Moderate pneumoperitoneum. Midline skin estela with left lateral abdominal wall subcutaneous emphysema. Unremarkable spleen, pancreas and adrenal glands. Cholecystectomy. Periportal edema, like ly related to overhydration. Mild narrowing of the portal splenic confluence. Patent portal vein. Stable cyst in the lateral interpolar left kidney. No hydronephrosis. Atherosclerosis aorta. There ar e a few borderline enlarged iliac chain lymph nodes measuring up to 10 mm. Asad-en-Y gastric bypass. Oral contrast noted within the stomach, gastric renal anastomosis and also within small bowel loops w ithin the left mid abdomen. There is progressively worsened dilation of the small bowel compared to t he preoperative study. Dilated air and fluid-filled loops measure up to approximately 5.3 cm. Loops o f small bowel within the right abdomen demonstrates circumferential wall beginning at the transition point, image 202 series 3. Anasarca. Chronic right femoral deformity with left hip arthroplasty. Hearing Aid Consultant shahla atrophy of the right thigh and paraspinal musculature. Dependent ascites in the pelvis with perit nuñez thickening measures up to 6.2 x 9.8 cm. IMPRESSION: 1. Pneumoperitoneum with anterior midline skin estela compatible with patient's history of recent ex ploratory laparotomy. 2. There is progressive worsening of the small bowel dilation compared to the preoperative exam with oral contrast not progressing past small bowel loops within the left abdomen. Findings compatible wit h high-grade small bowel obstruction with transition point involving thickened ileal loop within the right lower quadrant. 3. Dependent ascites within the pelvis with adjacent peritoneal thickening. Attention on follow-up re commended in order to exclude a developing postoperative fluid collection. 4. Additional findings as above. ACT 112: Negative or not required by law. The above report was generated using voice recognition software. It may contain grammatical, syntax o r spelling errors. Electronically signed by: Nelson Hernández M.D. 04/11/2024 2:21 PM
[2024-04-11] MEDS: ACETAMINOPHEN 500 MG TAB PO SCH (14:47)
[2024-04-11] MEDS: SODIUM CHLORIDE 0.9% 500 ML IV SCH (16:33)
[2024-04-11] MEDS: DIGOXIN 125 MCG in SYRINGE 9.5 ML IV SCH (16:44)
--- NOTE | 2024-04-12 07:53 | Hospitalist Progress Note ---
Date of Service April 12, 2024 Assessment & Plan (1) Small bowel obstruction: Plan: Acute mesenteric ischemia due to closed-loop small bowel obstruction S/p emergent ex lap with release of small bowel obstruction and enterolysis 04/07/2024 With ongoing postoperative discomfort/pain Tylenol, scale of morphine for pain control Repeat CT 04/11 with progressive worsening of small bowel dilation compared to preop exam with oral contrast not progressing past small bowel loops within the abdomen consistent with high-grade small bowel obstruction and transition point involving thickened ileal loop within right lower quadrant. Dependent ascites with adjacent thickening from which postoperative fluid collection is not excluded Repeat lactate is normal 04/12 patient is not peritoneal on exam, but remains with a CT as above and additional nausea and vomiting that morning. Given persistent nausea/vomiting x 3 episodes and high-grade obstruction NGT ordered to be replaced to LIS, placement to be confirmed with KUB.. Surgery following, appreciate recommendations. Continue Tylenol/morphine for scale pain control as needed Continue Zosyn every 8 hours Continue PPI 40 mg IV N.p.o. While n.p.o. with NGT in place we will put on LR 80 cc/h IV FM. (2) Atrial fibrillation with RVR: Plan: is chronic afib with eliquis typically Patient did receive Kcentra for reversal of anticoagulation due to apixaban Currently adequately rate controlled. Digoxin is converted to IV, metoprolol discontinued IV while n.p.o. Adequate rate control morning of 04/12 Patient's A-fib has difficult control with subtherapeutic digoxin levels, currently doing well amiodarone is held due to its now being 48 hours off anticoagulation. Will follow progression over next 24 hours if prolonged period of n.p.o. anticipated then will start heparin GTT for stroke prophylaxis. Will defer this today due to nausea vomiting with torn stable and some bleeding from surgical site (3) Generalized anxiety disorder: Plan: Generalized anxiety disorder- Holding duloxetine, doxepin, cyclobenzaprine, and buspirone, and will be resumed post surgery when taking p.o. Plan Diabetes mellitus- On no recent medications no further checking needed A1c 5.5 Admission and Anticipated Discharge Date Admission Date: April 07, 2024 Subjective Kym seen bedside this morning. She reports she had 2 episodes of vomiting after trying to drink the second half of contrast yesterday, has felt nauseous with 1 episode of vomiting this morning. She continues to have left lower quadrant abdominal pain which is tolerable and a little bit better than yesterday, but still very bothersome to her. She had 1 episode of nonbloody nonbilious vomiting this morning and continues to feel intermittently nauseous. Overall she reports she feels better than yesterday, but still not very good. She has passed very small amounts of flatus, no bowel bowel movement in several days. Denies fever chills or sweats. She reports her pain is mostly in the left lower quadrant and she denies radiating pain from her left lower quadrant. When vomiting she did have a small amount of bleeding from her staple which was redressed by nursing staff. No other questions or complaints at Physical Exam Physical Exam: General: A&Ox3. NAD. Cooperative. HEENT: Atraumatic, normocephalic. Vision and hearing grossly intact Pulm: CTAB A&P. -wheezes, -rales, -rhonchi. Symmetrical chest rise. No increased work of breathing. No respiratory distress. Cardiac: irir rate adequately controlled at approximately 8090 Abdominal: Tender to palpation most prominently at left lower quadrant minimally at right lower quadrant and without radiating pain. No rebound pain, and no radiating pain on deep palpation. Involuntary guarding is not present. Slight nausea induced on palpation bowel sounds diminished Results & Data Results & Data Vital Signs (Past 12 Hours) Vital Signs Temp Pulse Pulse Resp BP BP Pulse Ox 04/12/24 06:28 94 H 117/88 04/12/24 06:07 120 H 126/83 04/12/24 04:15 36.8 C 108 H 20 134/86 95 04/12/24 00:15 98 H 150/98 H 04/12/24 00:06 98 H 150/98 H 04/11/24 23:55 36.5 C 130 H 18 138/101 H 95 04/11/24 21:45 120 H 04/11/24 20:10 117 H O2 Del Method 04/12/24 06:28 04/12/24 06:07 04/12/24 04:15 Room Air 04/12/24 00:15 04/12/24 00:06 04/11/24 23:55 Room Air 04/11/24 21:45 04/11/24 20:10 PG Care Time/CCT Total # of Minutes Spent Total Time Spent with Patient: Total time spent is greater than 50% in coordination of care (as documented) at patient's floor/unit and/or counseling patient: Coding Level of Care Code 96491 SUB INP/OBS CARE 3/50MIN Diagnoses Small bowel obstruction K56.609 Atrial fibrillation with RVR I48.91 Generalized anxiety disorder F41.1
[2024-04-12] MEDS: LACTATED RINGER'S 1,000 ML IV SCH (10:40)
--- NOTE | 2024-04-12 10:57 | Cardiology Progress Note ---
Date of Service April 12, 2024 Assessment & Plan (1) Small bowel obstruction: (2) Atrial fibrillation with RVR: Plan Assessment: 63 year old female with history of Gastric bypass presents with intractable N/V and abdominal pain with CT findings demonstrating a SBO, sent for emergent surgery. Patient with history of paroxysmal atrial fibrillation. Was in atrial fibrillation, RVR at time of presentation, patient without subjective sensation of elevated heart rates in the past or now. Plan: Small Bowel obstruction -s/p exploratory lap and release of SBO on 04/07/24 -Due to ongoing abdominal pain postoperatively, patient underwent a repeat CT of the abdomen and pelvis with oral contrast on 04/11/2024 with findings from radiology report as summarized 1. Pneumoperitoneum with anterior midline skin estela compatible with patient's history of recent exploratory laparotomy. 2. There is progressive worsening of the small bowel dilation compared to the preoperative exam with oral contrast not progressing past small bowel loops within the left abdomen. Findings compatible with high-grade small bowel obstruction with transition point involving thickened ileal loop within the right lower quadrant. 3. Dependent ascites within the pelvis with adjacent peritoneal thickening. Attention on follow-up recommended in order to exclude a developing postoperative fluid collection. NPO status resumed on 04/11/24 with subsequent improvement in abdominal pain. Continue oral digoxin. Continue IV metoprolol, 7.5 mg IV every 6 hours. Anticipate heart rates will improve as her postoperative recovery improves. SCDs for DVT prophylaxis. Resume Eliquis for stroke prophylaxis when felt reasonable from a postoperative bleeding standpoint versus heparin bridge if not ready for oral medication. Dyao Miranda, DO Admission and Anticipated Discharge Date Admission Date: April 07, 2024 Subjective Patient seen cardiology follow-up. She notes interval improvement in her abdominal pain and bloating although she still has residual abdominal pain. Notes flatulence but no bowel movement as of yet. Telemetry reveals ongoing atrial fibrillation, average rate in the 110's which is a subtle improvement compared to yesterday. Physical Exam Constitutional: well developed and well nourished; no acute distress Neck: normal visual inspection and trachea midline Respiratory: normal respiratory effort; no respiratory distress, no labored breathing and no cough Auscultation: lungs clear to auscultation bilaterally; no crackles, no rales, no rhonchi and no wheezes Cardiovascular: Rate/Rhythm: + tachycardic and + irregularly irregular Heart Sounds: normal S1 and normal S2; no murmur Vessels: dorsalis pedis pulses present; no JVD Extremities: no edema Gastrointestinal (Abdomen): Mild distention however improved, ongoing diffuse abdominal tenderness. Skin: no rashes, warm and dry (midline abd incision closed/well approximated C/D/I. Gooding present ) Psychiatric: A+Ox3, euthymic affect Results & Data Vital Signs (Past 12 Hours) Vital Signs Temp Pulse Pulse Resp BP BP BP 04/12/24 07:44 36.9 C 87 18 127/82 04/12/24 06:28 94 H 117/88 04/12/24 06:07 120 H 126/83 04/12/24 04:15 36.8 C 108 H 20 134/86 04/12/24 00:15 98 H 150/98 H 04/12/24 00:06 98 H 150/98 H 04/11/24 23:55 36.5 C 130 H 18 138/101 H Pulse Ox O2 Del Method 04/12/24 07:44 95 Room Air 04/12/24 06:28 04/12/24 06:07 04/12/24 04:15 95 Room Air 04/12/24 00:15 04/12/24 00:06 04/11/24 23:55 95 Room Air
--- NOTE | 2024-04-12 11:06 | XRay Report ---
XR chest 1V portable HISTORY: 63 years-old Female NG tube placement status post placement of an enteric tube COMPARISON: CT abdomen and pelvis 04/11/2024, chest radiograph 04/19/2023 TECHNIQUE: AP view of the chest FINDINGS: Heart is enlarged. Cervical spinal fusion hardware. Mild bibasilar atelectasis/scarring. No pneumotho rax, pleural effusion or pulmonary edema. Persistent small bowel dilation with upper abdominal pneumo peritoneum. Status post placement of an enteric tube which is folded upon itself within the distal es ophagus, distal tip projected superiorly within the distal esophagus. IMPRESSION: 1. Malpositioned enteric tube, full report itself within the distal esophagus. Repositioning with fol low-up imaging is needed. Upon review of the comparison CT images, there is apparent narrowing of the gastroesophageal junction associated with the patient's Asad-en-Y gastric bypass. 2. Persistent small bowel obstruction with pneumoperitoneum. ACT 112: Negative or not required by law. The above report was generated using voice recognition software. It may contain grammatical, syntax o r spelling errors. Electronically signed by: Nelson Hernández M.D. 04/12/2024 11:03 AM
--- NOTE | 2024-04-12 11:13 | Surgery Progress Note ---
Date of Service April 12, 2024 Assessment & Plan (1) Small bowel obstruction: Plan: POD#5 ex lap and release of small bowel obstruction Vitals show afib with HRs 120+. BP stable, pt afebrile CT with SBO; NPO; NGT Pt complains of abdominal pain not well managed on current regimen Abdomen soft, non distended, with surgical dressings c/d/i Admission and Anticipated Discharge Date Admission Date: April 07, 2024 Subjective doing ok; passing flatus; no BMs; CT yesterday with SBO; NGT being placed now; vomiting o/n Physical Exam Physical Exam: awake/alert, no distress Gastrointestinal (Abdomen): Inspection/Auscultation: + abdominal surgical incision (surgical dressings c/d/i); abdomen not distended Percussion/Palpation: + abdomen tender (expected post op discomfort ) and abdomen soft Results & Data Vital Signs (Past 12 Hours) Vital Signs Temp Pulse Pulse Resp BP BP BP 04/12/24 10:58 115 H 04/12/24 07:44 36.9 C 87 18 127/82 04/12/24 06:28 94 H 117/88 04/12/24 06:07 120 H 126/83 04/12/24 04:15 36.8 C 108 H 20 134/86 04/12/24 00:15 98 H 150/98 H 04/12/24 00:06 98 H 150/98 H 04/11/24 23:55 36.5 C 130 H 18 138/101 H Pulse Ox O2 Del Method 04/12/24 10:58 04/12/24 07:44 95 Room Air 04/12/24 06:28 04/12/24 06:07 04/12/24 04:15 95 Room Air 04/12/24 00:15 04/12/24 00:06 04/11/24 23:55 95 Room Air Laboratory Results 04/12/24 Range/Units 08:10 Lactate 1.2 (0.4-2.0) mmol/L
[2024-04-13 06:46] LABS: Basophils # (auto) 0.04 K/uL (0.00-0.20); Basophils % (auto) 0.4 %; Eosinophils # (auto) 0.73 K/uL (0.00-0.50); Hematocrit (blood only) 27.7 % (37.0-47.0); Hemoglobin 8.7 g/dl (12.0-16.0); Immature Granulocytes # (auto) 0.04 K/uL (0.01-0.20); Immature Granulocytes % (auto) 0.4 %; Lymphocytes # (auto) 1.57 K/uL (1.20-3.40); Lymphocytes % (auto) 17.1 %; Mean Corpuscular Hemoglobin 18.7 pg (25.0-34.0); Mean Corpuscular Hgb Conc 31.4 g/dL (32.0-36.0); Mean Corpuscular Volume 59.6 fL (80.0-100.0); Monocytes # (auto) 0.99 K/uL (0.11-0.59); Monocytes % (auto) 10.8 %; Neutrophils # (auto) 5.81 K/uL (1.40-6.50); Neutrophils % (auto) 63.3 %; RDW Coefficient of Variation 14.9 % (11.5-14.5); RDW Standard Deviation 30.9 fL (36.4-46.3); Red Blood Count 4.65 M/uL (4.20-5.40); White Blood Count 9.18 K/ul (4.8-10.8)
[2024-04-13 06:58] LABS: Calcium 8.3 mg/dl (8.6-10.3); Potassium 3.9 mmol/L (3.5-5.1)
[2024-04-13 07:03] LABS: Creatinine Clr Calc Pharmacy 99.7 ml/min
[2024-04-13 07:32] LABS: Mean Platelet Volume 9.6 fL (9.4-12.4); Platelet Count 403 K/uL (130-400)
[2024-04-13 07:57] LABS: Microcytosis Present; Polychromasia 1+; Target Cells 2+; Tear Drop Cells 1+
--- NOTE | 2024-04-13 08:07 | Cardiology Progress Note ---
Date of Service April 13, 2024 Assessment & Plan (1) Atrial fibrillation with RVR: (2) Small bowel obstruction: Plan Plan: 63 year old female with history of Gastric bypass presents with intractable N/V and abdominal pain with CT findings demonstrating a SBO, sent for emergent surgery. Patient with history of paroxysmal atrial fibrillation. Was in atrial fibrillation, RVR at time of presentation, patient without subjective sensation of elevated heart rates in the past or now. Plan: * Small Bowel obstruction * -s/p exploratory lap and release of SBO on 04/07/24 * NG tube removed - patient's GI status appears to be improving * With less pain and overall improvement in status, HR has trended downwards * +PAF * Continue oral digoxin. * Check Digoxin level * Now that patient is tolerating PO's, consider D/C IV Lopressor * Start Toprol XL 75 mg po BID * K+ goal 4.5-5 * Mag goal >2 * TSH is WNL - 4 * SCDs for DVT prophylaxis. * Resume Eliquis for stroke prophylaxis when felt reasonable from a postoperative bleeding standpoint versus heparin bridge if not ready for oral medication. * Patient appears euvolemic * Consider for outpt Afib ablation Admission and Anticipated Discharge Date Admission Date: April 07, 2024 Subjective Events Overnight: * Abdominal pain improving * NG tube removed * Afib with RVR on telemetry - HR trending down - now in the low 100's Subjective: * Improving * No pain reported Review of Systems Review of Systems: All systems reviewed & are unremarkable except as noted in HPI & below Physical Exam Physical Exam: No elevation in JVP S1S2 2/6 Systolic Murmur - MR CTA B on anterior examination + BS Trace LE edema Warm and perfused Results & Data Vital Signs (Past 12 Hours) Vital Signs Temp Pulse Pulse Resp BP BP Pulse Ox 04/13/24 07:08 36.5 C 90 19 113/71 92 04/13/24 06:20 88 113/76 04/13/24 06:05 100 H 113/75 04/13/24 02:46 36.6 C 96 H 14 116/77 94 04/13/24 00:25 91 H 118/79 04/13/24 00:08 36.7 C 109 H 20 119/76 93 04/12/24 21:55 106 H 04/12/24 20:15 O2 Del Method 04/13/24 07:08 Room Air 04/13/24 06:20 04/13/24 06:05 04/13/24 02:46 Room Air 04/13/24 00:25 04/13/24 00:08 Room Air 04/12/24 21:55 04/12/24 20:15 Room Air Laboratory Results CBC 04/13/24 Range/Units 06:22 WBC 9.18 (4.8-10.8) K/ul RBC 4.65 (4.20-5.40) M/uL Hgb 8.7 L (12.0-16.0) g/dl Hct 27.7 L (37.0-47.0) % Plt Count 403 H (130-400) K/uL Neut # (Auto) 5.81 (1.40-6.50) K/uL Lymph # (Auto) 1.57 (1.20-3.40) K/uL Pitt # (Auto) 0.99 H (0.11-0.59) K/uL Eos # (Auto) 0.73 H (0.00-0.50) K/uL Baso # (Auto) 0.04 (0.00-0.20) K/uL Comprehensive Metabolic Panel 04/13/24 Range/Units 06:22 Sodium 135 L (136-145) mmol/L Potassium 3.9 (3.5-5.1) mmol/L Chloride 100 (98-107) mmol/L Carbon Dioxide 27 (21-32) mmol/L BUN 11 (6-23) mg/dl Creatinine 0.58 L (0.6-1.2) mg/dl Glucose 81 (70-99(Fasting)) mg/dl Calcium 8.3 L (8.6-10.3) mg/dl Intake and Output 04/12/24 04/13/24 04/13/24 22:59 06:59 14:59 Intake Total 886.667 / 1745.334 398.667 / 1745.334 Output Total 1200 / 2900 1100 / 2900 Balance -313.333 / -1154.666 -701.333 / -1154.666 Intake: IV 886.667 / 1385.334 398.667 / 1385.334 Lactated Ringer's 1,000 ml @ 80 786.667 / 1085.334 298.667 / 1085.334 mls/hr IV .[id number] [facility] Rx#: [id number] Piperacillin/Tazobactam 4.5 gm 100 / 300 100 / 300 In 100 ml @ 25 mls/hr IV Q8H [facility] Rx#:[id number] Output: Urine Amount (Catheter) 1200 / 2900 1100 / 2900 External 600 / 1700 1100 / 1700 Fem Cath 600 / 1200 Other: Other Intake Source SIPS CHIPS SIPS CHIPS Weight 69.5 kg Weight Measurement Method [facility] Diagnostic Findings ECHOcardiogram: 04-08-2024 LVEF 60-65% MR - mild to moderate LA - moderately enlarged Current Inpatient Medications Medications Administered Acetaminophen (Acetaminophen 500 Mg Tab) 1,000 mg PO TID [facility] Stop: 05/11/24 13:59 Last Admin: 04/12/24 20:29 Dose: 1,000 mg Piperacillin Sod/Tazobactam Sod (Zosyn) 4.5 gm in 100 mls @ 25 mls/hr IV Q8H [facility]; Protocol Stop: 04/18/24 03:59 Last Admin: 04/13/24 03:58 Dose: 25 mls/hr Pantoprazole Sodium 40 mg/ (Syringe) 10 mls @ 5 mls/min IV DAILY@1100 [facility] Stop: 05/08/24 10:59 Last Admin: 04/12/24 10:57 Dose: 5 mls/min Digoxin 125 mcg/ Syringe 10 mls @ 2 mls/min IV DAILY@1600 [facility] Stop: 05/11/24 16:29 Last Admin: 04/12/24 15:34 Dose: 2 mls/min Lactated Ringer's (Lr) 1,000 mls @ 80 mls/hr IV .[id number] [facility] Stop: 05/12/24 10:44 Last Infusion: 04/13/24 03:59 Dose: 0 mls/hr Melatonin (Melatonin 3 Mg Tab) 9 mg PO HS PRN PRN Reason: Sleep Stop: 05/09/24 22:17 Last Admin: 04/10/24 23:57 Dose: 9 mg Metoprolol Tartrate (Metoprolol Tartrate 1 Mg/Ml Vial) 7.5 mg IV Q6 [facility] Stop: 05/10/24 17:59 Last Admin: 04/13/24 06:05 Dose: 7.5 mg Morphine Sulfate (Morphine Sulfate 2 Mg/Ml Carp) 2 mg IV Q4H PRN PRN Reason: Mild-Mod Pain (Scale 1-6) Stop: 04/24/24 13:12 Last Admin: 04/13/24 00:18 Dose: 2 mg Morphine Sulfate (Morphine Sulfate 4 Mg/Ml 1 Ml Carp\Vial) 4 mg IV Q4H PRN PRN Reason: Severe Pain (Scale 7, 8, 9,10) Stop: 04/24/24 13:12 Last Admin: 04/12/24 04:15 Dose: 4 mg Ondansetron HCl (Ondansetron Inj 2 Mg/Ml 2 Ml Vial) 4 mg IV Q6H PRN PRN Reason: Nausea Stop: 05/07/24 23:24 Last Admin: 04/12/24 04:15 Dose: 4 mg Oxycodone HCl (Oxycodone Hcl Ir 5 Mg Tab (Immediate Release)) 10 mg PO Q4H PRN PRN Reason: moderate pain Stop: 04/22/24 10:56
--- NOTE | 2024-04-13 08:47 | Surgery Progress Note ---
Date of Service April 13, 2024 Assessment & Plan (1) Small bowel obstruction: Plan: s/p ex lap and release of small bowel obstruction on 04/07 WBC 9. Vitals stable Events from wknd noted. Pt feeling better today, less pain and passing flatus Will d/c NGT this AM. prefer to keep patient NPO with sips/chips today. If doing well luis will consider resuming clears Recommend OOB to chair at least TID. PT/OT ordered as above. doubt sbo more likely severe ileus ( expected) d/c ngt ( pt had gastric bypass...ngt unlikely to help decompress small bowel anyway. hopefully can re-initiate diet soon. Admission and Anticipated Discharge Date Admission Date: April 07, 2024 Subjective Patient's pain improved from yesterday. She reports passing gas. Some discomfort with NGT Physical Exam Physical Exam: sleeping, but easy to wake, arousable and communicative Gastrointestinal (Abdomen): Inspection/Auscultation: + abdominal surgical incision (incision c/d/i, no infection nor drainage ) Percussion/Palpation: + abdomen tender (expected post op discomfort) and abdomen soft NGT with scant output Results & Data Vital Signs (Past 12 Hours) Vital Signs Temp Pulse Pulse Resp BP BP Pulse Ox 04/13/24 07:08 97.7 F 90 19 113/71 92 04/13/24 06:20 88 113/76 04/13/24 06:05 100 H 113/75 04/13/24 02:46 97.9 F 96 H 14 116/77 94 04/13/24 00:25 91 H 118/79 04/13/24 00:08 98.1 F 109 H 20 119/76 93 04/12/24 21:55 106 H O2 Del Method 04/13/24 07:08 Room Air 04/13/24 06:20 04/13/24 06:05 04/13/24 02:46 Room Air 04/13/24 00:25 04/13/24 00:08 Room Air 04/12/24 21:55 PG Care Time/CCT Total # of Minutes Spent Total Time Spent with Patient: Total time spent is greater than 50% in coordination of care (as documented) at patient's floor/unit and/or counseling patient: Coding Level of Care Code 88135 Post Operative Follow-Up Diagnoses Small bowel obstruction K56.223
--- NOTE | 2024-04-13 12:05 | Hospitalist Progress Note ---
Date of Service April 13, 2024 Assessment & Plan (1) Small bowel obstruction: Plan: Postoperative day #6 after exploratory laparotomy. Appreciate general surgery consultation and recommendations. She was found to have acute mesenteric ischemia at the time of surgery which has resolved. She states she is passing flatus now despite the fact that the repeat CT scan of the abdomen on April 11 appeared worse. Hopefully she can be started on clear liquids soon and her diet advanced. (2) Atrial fibrillation with RVR: Plan: chronic afib with eliquis Eliquis therapy. Currently on intravenous digoxin and intravenous metoprolol for rate control. Eliquis is on hold. Appreciate cardiology consultation recommendations. Telemetry (3) Generalized anxiety disorder: Plan: Stable. Usual oral medications are on hold including duloxetine, doxepin, cyclobenzaprine, and buspirone. Plan Hopeful discharge to home within the next 24 to 48 hours Admission and Anticipated Discharge Date Admission Date: April 07, 2024 Subjective Alert and oriented. She states she is passing flatus now. She is in no distress whatsoever. She is tolerating ice chips. Hopefully clear liquids can be started today. Postoperative day 6 after exploratory laparotomy and relief of small bowel obstruction. Heart rate is controlled with intravenous digoxin and intravenous metoprolol. Review of Systems 2 Review of Systems: Constitutionalno fever or chills ENTno blurred vision, no double vision, no epistaxis, no sore throat Respiratoryno cough, no wheezing, no shortness of breath Cardiacno palpitations, no chest pain, no syncope Nataliia nausea, vomiting, diarrhea, melena, hematochezia GUno urinary retention, no urinary incontinence, no dysuria, no hematuria Musculoskeletalno joint pain, no muscle tenderness Skinno bruising, no rashes, no pruritus Neurono isolated weakness, no paresthesia, no weakness Psychno depression, no anxiety Physical Exam 2 Physical Exam: General-alert and oriented x3, no fever, no chills HEENT-head atraumatic and normocephalic, pupils equal and reactive to light, extraocular muscles intact Neck-no lymphadenopathy or thyromegaly, trachea midline Chest-clear to auscultation. No rales, wheezing or rhonchi Cardiac-irregular rhythm with controlled rate. Normal S1 and S2 Abdomen-normal bowel sounds, no hepatosplenomegaly Extremities-no cyanosis, clubbing, or edema Neuro-cranial nerves II through XII intact, motor and sensory function within normal limits, strength symmetrical, no focal deficits Psych-normal affect, normal mood Results & Data Results & Data Vital Signs (Past 12 Hours) Vital Signs Temp Pulse Pulse Resp BP BP Pulse Ox 04/13/24 11:11 36.5 C 102 H 20 111/72 94 04/13/24 07:08 36.5 C 90 19 113/71 92 04/13/24 06:20 88 113/76 04/13/24 06:05 100 H 113/75 04/13/24 02:46 36.6 C 96 H 14 116/77 94 04/13/24 00:25 91 H 118/79 04/13/24 00:08 36.7 C 109 H 20 119/76 93 O2 Del Method 04/13/24 11:11 Room Air 04/13/24 07:08 Room Air 04/13/24 06:20 04/13/24 06:05 04/13/24 02:46 Room Air 04/13/24 00:25 04/13/24 00:08 Room Air Laboratory Results 04/13/24 06:22 04/13/24 06:22 PG Care Time/CCT Total # of Minutes Spent Total Time Spent with Patient: Total time spent is greater than 50% in coordination of care (as documented) at patient's floor/unit and/or counseling patient: Coding Level of Care Code 78310 SUB INP/OBS CARE 2/35MIN Diagnoses Small bowel obstruction K56.609 Atrial fibrillation with RVR I48.91 Generalized anxiety disorder F41.1
[2024-04-14 07:35] LABS: Basophils # (auto) 0.05 K/uL (0.00-0.20); Basophils % (auto) 0.5 %; Eosinophils # (auto) 0.93 K/uL (0.00-0.50); Hematocrit (blood only) 26.5 % (37.0-47.0); Hemoglobin 8.4 g/dl (12.0-16.0); Immature Granulocytes # (auto) 0.05 K/uL (0.01-0.20); Immature Granulocytes % (auto) 0.5 %; Lymphocytes # (auto) 1.34 K/uL (1.20-3.40); Mean Corpuscular Hemoglobin 18.6 pg (25.0-34.0); Mean Corpuscular Hgb Conc 31.7 g/dL (32.0-36.0); Mean Corpuscular Volume 58.8 fL (80.0-100.0); Monocytes # (auto) 0.89 K/uL (0.11-0.59); Monocytes % (auto) 8.6 %; Neutrophils # (auto) 7.07 K/uL (1.40-6.50); Neutrophils % (auto) 68.4 %; RDW Coefficient of Variation 15.1 % (11.5-14.5); RDW Standard Deviation 30.7 fL (36.4-46.3); Red Blood Count 4.51 M/uL (4.20-5.40); White Blood Count 10.33 K/ul (4.8-10.8)
[2024-04-14 07:38] LABS: Mean Platelet Volume 9.3 fL (9.4-12.4); Platelet Count 436 K/uL (130-400)
[2024-04-14 07:49] LABS: BUN Creatinine Ratio 17.5 (10-20); Calcium 8.4 mg/dl (8.6-10.3); Creatinine Clr Calc Pharmacy 101.8 ml/min; Potassium 3.6 mmol/L (3.5-5.1)
[2024-04-14 08:01] LABS: Microcytosis Present; Polychromasia 1+; Target Cells 2+
--- NOTE | 2024-04-14 08:12 | Surgery Progress Note ---
Date of Service April 14, 2024 Assessment & Plan (1) Small bowel obstruction: Plan: s/p ex lap and release of small bowel obstruction on 04/07 WBC 10. VSS Will advance to clear liquids today, if does well will consider fulls tomorrow KUB ordered for luis AM for evaluation OOB and ambulation as tolerates as above. clinically improving wbc normalized. pain improved Admission and Anticipated Discharge Date Admission Date: April 07, 2024 Subjective Patient feeling well. No nausea/vomiting. Thirsty. + gas. No BM yet. Physical Exam Physical Exam: awake/alert no distress Respiratory: normal respiratory effort Gastrointestinal (Abdomen): Inspection/Auscultation: + abdominal surgical incision (incision c/d/i, no infection nor drainage ); abdomen not distended Percussion/Palpation: + abdomen tender (expected post op discomfort) and abdomen soft Results & Data Vital Signs (Past 12 Hours) Vital Signs Temp Pulse Pulse Resp BP BP Pulse Ox 04/14/24 07:33 97.9 F 96 H 18 117/75 95 04/14/24 05:24 75 128/78 04/14/24 05:09 86 129/76 04/14/24 02:23 98.2 F 106 H 16 120/80 96 04/14/24 01:31 83 104/70 04/14/24 01:16 102 H 107/68 04/13/24 21:59 98.1 F 90 22 124/82 97 O2 Del Method 04/14/24 07:33 Room Air 04/14/24 05:24 04/14/24 05:09 04/14/24 02:23 Room Air 04/14/24 01:31 04/14/24 01:16 04/13/24 21:59 Room Air PG Care Time/CCT Total # of Minutes Spent Total Time Spent with Patient: Total time spent is greater than 50% in coordination of care (as documented) at patient's floor/unit and/or counseling patient: Coding Level of Care Code 39171 Post Operative Follow-Up Diagnoses Small bowel obstruction K56.609
[2024-04-14] MEDS: PANTOprazole 40 MG in SYRINGE DAILY IV SCH (09:48)
[2024-04-14] MEDS: ACETAMINOPHEN 325 MG TAB PO PRN (10:42)
--- NOTE | 2024-04-14 11:27 | Hospitalist Progress Note ---
Date of Service April 14, 2024 Assessment & Plan (1) Small bowel obstruction: Plan: Postoperative day #7after exploratory laparotomy. Appreciate general surgery consultation and recommendations. She was found to have acute mesenteric ischemia at the time of surgery which has resolved. She states she is passing flatus now despite the fact that the repeat CT scan of the abdomen on April 11 appeared worse. Clear liquid diet has been started by surgery today, April 14, and KUB has been ordered again for tomorrow, April 15. Diet will be advanced as tolerated. IV fluids have been tapered down. (2) Atrial fibrillation with RVR: Plan: chronic afib with eliquis Eliquis therapy. Intravenous digoxin and intravenous metoprolol have been switched back to oral dosing today, April 14. Eliquis is on hold and will be restarted when we are sure she will not need to return to the OR. Appreciate cardiology consultation recommendations. Telemetry (3) Generalized anxiety disorder: Plan: Stable. Usual oral medications have been restarted today, April 14, including duloxetine, doxepin, cyclobenzaprine, and buspirone. Plan Hopeful discharge to home within the next 24 to 48 hours Admission and Anticipated Discharge Date Admission Date: April 07, 2024 Subjective Alert and oriented. She is passing flatus. Surgery has seen the patient today, April 14, and started clear liquid diet. Will repeat KUB in the morning. Diet will be advanced as tolerated. She seems to be doing quite well. IV medications have been switched to oral dosing. Review of Systems 2 Review of Systems: Constitutionalno fever or chills ENTno blurred vision, no double vision, no epistaxis, no sore throat Respiratoryno cough, no wheezing, no shortness of breath Cardiacno palpitations, no chest pain, no syncope Nataliia nausea, vomiting, diarrhea, melena, hematochezia GUno urinary retention, no urinary incontinence, no dysuria, no hematuria Musculoskeletalno joint pain, no muscle tenderness Skinno bruising, no rashes, no pruritus Neurono isolated weakness, no paresthesia, no weakness Psychno depression, no anxiety Physical Exam 2 Physical Exam: General-alert and oriented x3, no fever, no chills HEENT-head atraumatic and normocephalic, pupils equal and reactive to light, extraocular muscles intact Neck-no lymphadenopathy or thyromegaly, trachea midline Chest-clear to auscultation. No rales, wheezing or rhonchi Cardiac-irregular rhythm with controlled rate. Normal S1 and S2 Abdomen-normal bowel sounds, no hepatosplenomegaly Extremities-no cyanosis, clubbing, or edema Neuro-cranial nerves II through XII intact, motor and sensory function within normal limits, strength symmetrical, no focal deficits Psych-normal affect, normal mood Results & Data Results & Data Vital Signs (Past 12 Hours) Vital Signs Temp Pulse Pulse Resp BP BP Pulse Ox 04/14/24 11:20 36.7 C 93 H 17 113/66 95 04/14/24 11:13 04/14/24 11:13 84 04/14/24 07:33 36.6 C 96 H 18 117/75 95 04/14/24 05:24 75 128/78 04/14/24 05:09 86 129/76 04/14/24 02:23 36.8 C 106 H 16 120/80 96 04/14/24 01:31 83 104/70 04/14/24 01:16 102 H 107/68 O2 Del Method 04/14/24 11:20 Room Air 04/14/24 11:13 Room Air 04/14/24 11:13 04/14/24 07:33 Room Air 04/14/24 05:24 04/14/24 05:09 04/14/24 02:23 Room Air 04/14/24 01:31 04/14/24 01:16 Laboratory Results 04/14/24 07:20 04/14/24 07:20 PG Care Time/CCT Total # of Minutes Spent Total Time Spent with Patient: Total time spent is greater than 50% in coordination of care (as documented) at patient's floor/unit and/or counseling patient: Coding Level of Care Code 02461 SUB INP/OBS CARE 3/50MIN Diagnoses Small bowel obstruction K56.609 Atrial fibrillation with RVR I48.91 Generalized anxiety disorder F41.1
[2024-04-14] MEDS: busPIRone 5 MG TAB PO SCH (13:29)
[2024-04-14] MEDS: CYCLOBENZAPRINE HCL 10 MG TAB PO PRN (14:03)
[2024-04-14] MEDS: DIGOXIN 0.125 MG TAB PO SCH (16:29)
[2024-04-14] MEDS: METOPROLOL TARTRATE 1 MG/ML VIAL IV STA (18:10)
[2024-04-14] MEDS: DOXEPIN HCL 50 MG CAPSULE PO SCH (20:16)
[2024-04-14] MEDS: METOPROLOL SUCC 50MG EXT REL TAB PO SCH (20:16)
[2024-04-14] MEDS: rOPINIRole HCL 0.25 MG TABLET PO SCH (22:42)
[2024-04-15 07:31] LABS: Basophils # (auto) 0.04 K/uL (0.00-0.20); Basophils % (auto) 0.5 %; Eosinophils % (auto) 9.1 %; Hematocrit (blood only) 25.9 % (37.0-47.0); Hemoglobin 8.2 g/dl (12.0-16.0); Immature Granulocytes # (auto) 0.05 K/uL (0.01-0.20); Immature Granulocytes % (auto) 0.6 %; Lymphocytes # (auto) 1.41 K/uL (1.20-3.40); Lymphocytes % (auto) 16.1 %; Mean Corpuscular Hemoglobin 18.6 pg (25.0-34.0); Mean Corpuscular Hgb Conc 31.7 g/dL (32.0-36.0); Mean Corpuscular Volume 58.7 fL (80.0-100.0); Monocytes # (auto) 0.88 K/uL (0.11-0.59); Neutrophils # (auto) 5.59 K/uL (1.40-6.50); Neutrophils % (auto) 63.7 %; RDW Standard Deviation 30.5 fL (36.4-46.3); Red Blood Count 4.41 M/uL (4.20-5.40); White Blood Count 8.77 K/ul (4.8-10.8)
[2024-04-15 07:37] LABS: Mean Platelet Volume 9.2 fL (9.4-12.4); Platelet Count 475 K/uL (130-400)
[2024-04-15 08:00] LABS: Hypochromasia Present; Microcytosis Present; Polychromasia 1+; Target Cells 2+
--- NOTE | 2024-04-15 08:00 | Surgery Progress Note ---
Date of Service April 15, 2024 Assessment & Plan Admission and Anticipated Discharge Date Admission Date: April 07, 2024 Subjective pt reports Results & Data Vital Signs (Past 12 Hours) Vital Signs Temp Pulse Resp BP Pulse Ox O2 Del Method 04/15/24 07:27 98.1 F 100 H 17 126/80 93 Room Air 04/15/24 03:00 98.2 F 96 H 16 116/75 97 Room Air 04/14/24 23:12 97.3 F L 114 H 25 H 130/85 93 Room Air PG Care Time/CCT Total # of Minutes Spent Total Time Spent with Patient: Total time spent is greater than 50% in coordination of care (as documented) at patient's floor/unit and/or counseling patient: Coding
[2024-04-15 08:04] LABS: BUN Creatinine Ratio 8.1 (10-20); Calcium 8.2 mg/dl (8.6-10.3); Creatinine Clr Calc Pharmacy 80.9 ml/min; Potassium 3.9 mmol/L (3.5-5.1)
--- NOTE | 2024-04-15 08:14 | Surgery Progress Note ---
Date of Service April 15, 2024 Assessment & Plan (1) Small bowel obstruction: Plan: s/p ex lap and release of small bowel obstruction on 04/07 WBC 8.7. Vitals stable She is beginning to have more meaningful bowel function, + flatus and BMs Will advance to fulls today KUB ordered for luis AM for evaluation, but feel clinically her ileus is resolving Daily dressing changes to midline with gauze/abd/tape OOB and ambulation as tolerates Admission and Anticipated Discharge Date Admission Date: April 07, 2024 Subjective Patient feeling well. She is starting to have + bowel function, multiple BM's. Tolerating clears, no nausea/vomiting. Hungry for more. Pain controlled Physical Exam Physical Exam: awake/alert no distress Respiratory: normal respiratory effort Gastrointestinal (Abdomen): Inspection/Auscultation: + abdominal surgical incision (incision without signs of infection, some serous drainage on dressing); abdomen not distended Percussion/Palpation: + abdomen tender (expected post op discomfort) and abdomen soft Results & Data Vital Signs (Past 12 Hours) Vital Signs Temp Pulse Resp BP Pulse Ox O2 Del Method 04/15/24 07:27 98.1 F 100 H 17 126/80 93 Room Air 04/15/24 03:00 98.2 F 96 H 16 116/75 97 Room Air 04/14/24 23:12 97.3 F L 114 H 25 H 130/85 93 Room Air PG Care Time/CCT Total # of Minutes Spent Total Time Spent with Patient: Total time spent is greater than 50% in coordination of care (as documented) at patient's floor/unit and/or counseling patient: Coding Level of Care Code 10165 Post Operative Follow-Up Diagnoses Small bowel obstruction K56.609
[2024-04-15] MEDS: DULoxetine HCL 30 MG CAP PO SCH (09:15)
--- NOTE | 2024-04-15 10:05 | XRay Report ---
XR KUB/Abdomen 1 view CLINICAL HISTORY: eval bowel gas pattern TECHNIQUE: 1 view of the abdomen was obtained. Comparison: Comparison is made to abdomen radiographs 04/07/[address] abdomen pelvis 04/11/2024 FINDINGS: Lung bases are unremarkable. Degenerative changes are seen in the visualized skeleton. Left hip arthr opathy seen. Right hip deformity is again seen. Prominent small bowel loops measure up to 42 mm in di ameter. A moderate amount of stool is noted within the large bowel. IMPRESSION: Findings compatible with small bowel obstruction. ACT 112: Negative or not required by law. Electronically signed by: Taiwo Francois M.D. 04/15/2024 10:04 AM
--- NOTE | 2024-04-15 11:31 | Hospitalist Progress Note ---
Date of Service April 15, 2024 Assessment & Plan (1) Small bowel obstruction: Plan: Postoperative day #8 after exploratory laparotomy. Appreciate general surgery consultation and recommendations. She was found to have acute mesenteric ischemia at the time of surgery which has resolved. She states she has had a bowel movement and is no longer having any nausea or vomiting. She is tolerating a full liquid diet. IV fluids have been discontinued. KUB continues to show dilated bowel loops but this will eventually normalize over time. (2) Atrial fibrillation with RVR: Plan: chronic afib with eliquis Eliquis therapy. Intravenous digoxin and intravenous metoprolol have been switched back to oral dosing. Eliquis has been restarted. Appreciate cardiology consultation recommendations. Telemetry (3) Generalized anxiety disorder: Plan: Stable. Usual oral medications were restarted on April 14 including duloxetine, doxepin, cyclobenzaprine, and buspirone. Plan Hopeful discharge to home tomorrow, April 16 Admission and Anticipated Discharge Date Admission Date: April 07, 2024 Subjective Alert and oriented. She states she had a bowel movement and is tolerating oral intake. KUB however continues to show dilated bowel loops but this will eventually normalize. She is currently on a full liquid diet. Hopefully this can be advanced and she can go home tomorrow, April 16 Review of Systems 2 Review of Systems: Constitutionalno fever or chills ENTno blurred vision, no double vision, no epistaxis, no sore throat Respiratoryno cough, no wheezing, no shortness of breath Cardiacno palpitations, no chest pain, no syncope Nataliia nausea, vomiting, diarrhea, melena, hematochezia GUno urinary retention, no urinary incontinence, no dysuria, no hematuria Musculoskeletalno joint pain, no muscle tenderness Skinno bruising, no rashes, no pruritus Neurono isolated weakness, no paresthesia, no weakness Psychno depression, no anxiety Physical Exam 2 Physical Exam: General-alert and oriented x3, no fever, no chills HEENT-head atraumatic and normocephalic, pupils equal and reactive to light, extraocular muscles intact Neck-no lymphadenopathy or thyromegaly, trachea midline Chest-clear to auscultation. No rales, wheezing or rhonchi Cardiac-irregular rhythm with controlled rate. Normal S1 and S2 Abdomen-normal bowel sounds, no hepatosplenomegaly Extremities-no cyanosis, clubbing, or edema Neuro-cranial nerves II through XII intact, motor and sensory function within normal limits, strength symmetrical, no focal deficits Psych-normal affect, normal mood Results & Data Results & Data Vital Signs (Past 12 Hours) Vital Signs Temp Pulse Pulse Resp BP Pulse Ox O2 Del Method 04/15/24 10:59 36.6 C 84 19 115/78 96 Room Air 04/15/24 09:01 104 H 04/15/24 07:27 36.7 C 100 H 17 126/80 93 Room Air 04/15/24 03:00 36.8 C 96 H 16 116/75 97 Room Air Laboratory Results 04/15/24 07:13 04/15/24 07:13 PG Care Time/CCT Total # of Minutes Spent Total Time Spent with Patient: Total time spent is greater than 50% in coordination of care (as documented) at patient's floor/unit and/or counseling patient: Coding Level of Care Code 44957 SUB INP/OBS CARE 3/50MIN Diagnoses Small bowel obstruction K56.609 Atrial fibrillation with RVR I48.91 Generalized anxiety disorder F41.1
[2024-04-15] MEDS: APIXABAN 5 MG TABLET PO SCH (12:59)
[2024-04-15] MEDS: SODIUM CHLORIDE 0.9% 1,000 ML IV SCH (17:58)
[2024-04-15] MEDS ORDERED: ONDANSETRON INJ 2 MG/ML 2 ML VIAL IV PRN (18:14)
[2024-04-15] MEDS: ONDANSETRON INJ 2 MG/ML 2 ML VIAL IV STA (18:18)
[2024-04-15] MEDS: METOPROLOL TARTRATE 1 MG/ML VIAL IV SCH (20:13)
[2024-04-15] MEDS: PANTOprazole 40 MG/10 ML SYR IV SCH (20:28)
[2024-04-16 07:30] LABS: Basophils # (auto) 0.03 K/uL (0.00-0.20); Basophils % (auto) 0.3 %; Eosinophils # (auto) 0.76 K/uL (0.00-0.50); Eosinophils % (auto) 8.4 %; Hematocrit (blood only) 24.4 % (37.0-47.0); Hemoglobin 7.7 g/dl (12.0-16.0); Immature Granulocytes # (auto) 0.05 K/uL (0.01-0.20); Immature Granulocytes % (auto) 0.6 %; Lymphocytes # (auto) 1.86 K/uL (1.20-3.40); Lymphocytes % (auto) 20.5 %; Mean Corpuscular Hemoglobin 18.7 pg (25.0-34.0); Mean Corpuscular Hgb Conc 31.6 g/dL (32.0-36.0); Mean Corpuscular Volume 59.2 fL (80.0-100.0); Monocytes # (auto) 0.73 K/uL (0.11-0.59); Neutrophils # (auto) 5.65 K/uL (1.40-6.50); Neutrophils % (auto) 62.2 %; Nucleated RBC # (auto) 0.04 K/uL (0.00-0.12); Nucleated RBC % (auto) 0.4 %; RDW Standard Deviation 31.1 fL (36.4-46.3); Red Blood Count 4.12 M/uL (4.20-5.40); White Blood Count 9.08 K/ul (4.8-10.8)
[2024-04-16 07:42] LABS: Mean Platelet Volume 9.4 fL (9.4-12.4); Platelet Count 489 K/uL (130-400)
[2024-04-16 07:46] LABS: BUN Creatinine Ratio 9.1 (10-20); Creatinine Clr Calc Pharmacy 111.6 ml/min; Potassium 3.7 mmol/L (3.5-5.1)
[2024-04-16 08:04] LABS: Basophilic Stippling 1+; Hypochromasia Present; Microcytosis Present; Polychromasia 1+; Target Cells 2+
[2024-04-16] MEDS ORDERED: PANTOprazole 40 MG TAB PO SCH (09:00)
--- NOTE | 2024-04-16 10:12 | XRay Report ---
KUB HISTORY: Acute generalized abdominal pain with small bowel obstruction SBO COMPARISON: 04/15/2024 radiograph, CT 04/11/2024 FINDINGS: Persistent small bowel obstruction. Dilated small bowel loops measure up to approximately 4 cm. Air is also present within the large bowel. No significant change from yesterday's study. Cholec ystectomy. Midline skin estela with left hip arthroplasty. Bibasilar pulmonary opacities are again s een. No renal calculi. No ureteral calculi. No pneumoperitoneum or pneumatosis. No fracture. IMPRESSION: There is persistent bowel dilation suggestive of ongoing obstruction versus ileus. Continued follow-u p recommended. ACT 112: Negative or not required by law. The above report was generated using voice recognition software. It may contain grammatical, syntax o r spelling errors. Electronically signed by: Nelson Hernández M.D. 04/16/2024 10:11 AM
--- NOTE | 2024-04-16 10:33 | Surgery Progress Note ---
Date of Service April 16, 2024 Assessment & Plan (1) Ileus following gastrointestinal surgery: Plan: xray reviewed. suspect ileus. expected considering the amount of ischemic bowel at surgery. clinically doing ok. bowels are moving. no nausea. she believes she over did it with 2 big bowls of soup. will allow her to have some clears today but limited. Admission and Anticipated Discharge Date Admission Date: April 07, 2024 Subjective pt seen. ate 2 large bowls of tomato soup last night. then had some emesis. no pain or nausea since. multiple loose bm's yesterday. Physical Exam Physical Exam: alert. nad abd: soft. nt. mild distension Results & Data Vital Signs (Past 12 Hours) Vital Signs Temp Pulse Pulse Resp BP BP BP 04/16/24 07:16 36.7 C 89 18 114/69 04/16/24 04:20 83 108/71 04/16/24 04:05 92 H 111/70 04/16/24 02:58 36.8 C 95 H 18 110/69 04/15/24 23:54 85 123/83 04/15/24 23:39 88 116/73 04/15/24 23:37 88 116/73 04/15/24 22:57 36.6 C 91 H 18 118/78 Pulse Ox O2 Del Method 04/16/24 07:16 92 Room Air 04/16/24 04:20 04/16/24 04:05 04/16/24 02:58 93 Room Air 04/15/24 23:54 04/15/24 23:39 04/15/24 23:37 04/15/24 22:57 92 Room Air PG Care Time/CCT Total # of Minutes Spent Total Time Spent with Patient: Total time spent is greater than 50% in coordination of care (as documented) at patient's floor/unit and/or counseling patient: Coding Level of Care Code 71740 Post Operative Follow-Up Diagnoses Ileus following gastrointestinal surgery K91.89; K56.7
--- NOTE | 2024-04-16 10:53 | Hospitalist Progress Note ---
Date of Service April 16, 2024 Assessment & Plan (1) Small bowel obstruction: Plan: Postoperative day #9 after exploratory laparotomy. Appreciate general surgery consultation and recommendations. She was found to have acute mesenteric ischemia at the time of surgery. She may have developed a postoperative ileus causing the x-ray appearance. Nausea and vomiting which recurred last night, April 15, have now resolved. She has been started again on a clear liquid diet. KUB x-ray continues to show dilated bowel loops. (2) Atrial fibrillation with RVR: Plan: chronic afib with eliquis Eliquis therapy. She is again on intravenous digoxin and intravenous metoprolol until she can be switched back to oral medication again. Eliquis is on hold again. Appreciate cardiology consultation and recommendations. Telemetry (3) Generalized anxiety disorder: Plan: Stable. Usual oral medications were restarted on April 14 and placed on hold again yesterday, April 15. These include duloxetine, doxepin, cyclobenzaprine, and buspirone. Plan Anticipate eventual discharge to home when medically stable Admission and Anticipated Discharge Date Admission Date: April 07, 2024 Subjective She states she feels better today. Nausea and vomiting which started again last night, April 15, have now resolved. She states she is passing flatus. KUB x- ray done today, April 16, continues to show dilated bowel loops. Surgery entry noted. They suspect she may have an ileus causing the x-ray appearance. They are allowing clear liquids again and will advance as tolerated. Hemoglobin is drifting down but this appears to be delusional. No overt GI bleeding. Will follow. Heart rate is controlled with intravenous digoxin and metoprolol. Review of Systems 2 Review of Systems: Constitutionalno fever or chills ENTno blurred vision, no double vision, no epistaxis, no sore throat Respiratoryno cough, no wheezing, no shortness of breath Cardiacno palpitations, no chest pain, no syncope Nataliia nausea, vomiting, diarrhea, melena, hematochezia GUno urinary retention, no urinary incontinence, no dysuria, no hematuria Musculoskeletalno joint pain, no muscle tenderness Skinno bruising, no rashes, no pruritus Neurono isolated weakness, no paresthesia, no weakness Psychno depression, no anxiety Physical Exam 2 Physical Exam: General-alert and oriented x3, no fever, no chills HEENT-head atraumatic and normocephalic, pupils equal and reactive to light, extraocular muscles intact Neck-no lymphadenopathy or thyromegaly, trachea midline Chest-clear to auscultation. No rales, wheezing or rhonchi Cardiac-irregular rhythm with controlled rate. Normal S1 and S2 Abdomen-normal bowel sounds, no hepatosplenomegaly Extremities-no cyanosis, clubbing, or edema Neuro-cranial nerves II through XII intact, motor and sensory function within normal limits, strength symmetrical, no focal deficits Psych-normal affect, normal mood Results & Data Results & Data Vital Signs (Past 12 Hours) Vital Signs Temp Pulse Pulse Resp BP BP BP 04/16/24 07:16 36.7 C 89 18 114/69 04/16/24 04:20 83 108/71 04/16/24 04:05 92 H 111/70 04/16/24 02:58 36.8 C 95 H 18 110/69 04/15/24 23:54 85 123/83 04/15/24 23:39 88 116/73 04/15/24 23:37 88 116/73 04/15/24 22:57 36.6 C 91 H 18 118/78 Pulse Ox O2 Del Method 04/16/24 07:16 92 Room Air 04/16/24 04:20 04/16/24 04:05 04/16/24 02:58 93 Room Air 04/15/24 23:54 04/15/24 23:39 04/15/24 23:37 04/15/24 22:57 92 Room Air Laboratory Results 04/16/24 06:56 04/16/24 06:56 PG Care Time/CCT Total # of Minutes Spent Total Time Spent with Patient: Total time spent is greater than 50% in coordination of care (as documented) at patient's floor/unit and/or counseling patient: Coding Level of Care Code 47899 SUB INP/OBS CARE 3/50MIN Diagnoses Small bowel obstruction K56.609 Atrial fibrillation with RVR I48.91 Generalized anxiety disorder F41.1
[2024-04-16] MEDS: DIGOXIN 250 MCG in SYRINGE 9 ML IV SCH (17:20)
[2024-04-17 08:11] LABS: Basophils # (auto) 0.05 K/uL (0.00-0.20); Basophils % (auto) 0.4 %; Eosinophils # (auto) 0.74 K/uL (0.00-0.50); Eosinophils % (auto) 6.6 %; Hematocrit (blood only) 25.2 % (37.0-47.0); Hemoglobin 7.9 g/dl (12.0-16.0); Immature Granulocytes # (auto) 0.22 K/uL (0.01-0.20); Lymphocytes # (auto) 1.61 K/uL (1.20-3.40); Lymphocytes % (auto) 14.3 %; Mean Corpuscular Hemoglobin 18.7 pg (25.0-34.0); Mean Corpuscular Hgb Conc 31.3 g/dL (32.0-36.0); Mean Corpuscular Volume 59.6 fL (80.0-100.0); Monocytes # (auto) 0.81 K/uL (0.11-0.59); Monocytes % (auto) 7.2 %; Neutrophils # (auto) 7.79 K/uL (1.40-6.50); Neutrophils % (auto) 69.5 %; RDW Coefficient of Variation 15.2 % (11.5-14.5); RDW Standard Deviation 31.2 fL (36.4-46.3); Red Blood Count 4.23 M/uL (4.20-5.40); White Blood Count 11.22 K/ul (4.8-10.8)
[2024-04-17 08:14] LABS: Mean Platelet Volume 9.5 fL (9.4-12.4); Platelet Count 536 K/uL (130-400)
[2024-04-17 08:28] LABS: BUN Creatinine Ratio 8.8 (10-20); Calcium 8.3 mg/dl (8.6-10.3); Creatinine Clr Calc Pharmacy 110.3 ml/min; Potassium 3.8 mmol/L (3.5-5.1)
[2024-04-17 08:34] LABS: Hypochromasia Present; Microcytosis Present; Polychromasia 1+; Target Cells 1+
--- NOTE | 2024-04-17 09:26 | Surgery Progress Note ---
Date of Service April 17, 2024 Assessment & Plan (1) Ileus following gastrointestinal surgery: Plan: Clinically looking better every day. We will reinitiate clear liquids today. Awaiting full return of bowel function and tolerating p.o. intake better prior t o discharge. Dr. Tse covering for the weekend (2) Small bowel obstruction: Admission and Anticipated Discharge Date Admission Date: April 07, 2024 Subjective Patient seen. "I am starving" no further nausea or vomiting. No pain Physical Exam Physical Exam: Alert no acute distress Abdomen is soft. Decreased distention from yesterday Results & Data Vital Signs (Past 12 Hours) Vital Signs Temp Pulse Pulse Resp BP BP BP 04/17/24 07:33 36.8 C 89 18 134/74 04/17/24 04:22 86 04/17/24 04:07 90 133/86 04/17/24 03:26 36.7 C 90 16 133/86 04/17/24 00:26 88 04/17/24 00:11 92 H 129/83 04/16/24 23:41 92 H 04/16/24 22:41 36.8 C 95 H 20 129/83 Pulse Ox O2 Del Method 04/17/24 07:33 95 Room Air 04/17/24 04:22 04/17/24 04:07 04/17/24 03:26 95 Room Air 04/17/24 00:26 04/17/24 00:11 04/16/24 23:41 04/16/24 22:41 91 Room Air PG Care Time/CCT Total # of Minutes Spent Total Time Spent with Patient: Total time spent is greater than 50% in coordination of care (as documented) at patient's floor/unit and/or counseling patient: Coding Level of Care Code 32386 Post Operative Follow-Up Diagnoses Ileus following gastrointestinal surgery K91.89; K56.7 Small bowel obstruction K56.609
--- NOTE | 2024-04-17 09:42 | XRay Report ---
KUB HISTORY: Acute generalized abdominal pain SBO COMPARISON: 04/16/2024 FINDINGS: Persistent small bowel obstruction. Dilated small bowel loops measure up to approximately 3 .6 cm, previously 4 cm. Air is also present within the large bowel. No significant change from yester day's study. Cholecystectomy. Midline skin estela with left hip arthroplasty. Bibasilar pulmonary op acities are again seen. No renal calculi. No ureteral calculi. No pneumoperitoneum or pneumatosis. No fracture. IMPRESSION: There is persistent bowel dilation suggestive of ongoing obstruction versus ileus. Contin ued follow- up recommended. ACT 112: Negative or not required by law. The above report was generated using voice recognition software. It may contain grammatical, syntax o r spelling errors. Electronically signed by: Nelson Hernández M.D. 04/17/2024 9:40 AM
--- NOTE | 2024-04-17 11:16 | Hospitalist Progress Note ---
Date of Service April 17, 2024 Assessment & Plan (1) Small bowel obstruction: Plan: Postoperative day #10 after exploratory laparotomy. Appreciate general surgery consultation and recommendations. She was found to have acute mesenteric ischemia at the time of surgery. She may have developed a postoperative ileus causing the x-ray appearance. Nausea and vomiting recurred April 15 has now resolved. She has been started again on a clear liquid diet. KUB x-ray done today, April 17, looks better. (2) Atrial fibrillation with RVR: Plan: chronic afib with eliquis Eliquis therapy. She is again on intravenous digoxin and intravenous metoprolol until she can be switched back to oral medication again when diet is advanced again. Eliquis is on hold. Appreciate cardiology consultation and recommendations. Telemetry (3) Generalized anxiety disorder: Plan: Stable. Usual oral medications were restarted on April 14 and placed on hold again on April 15. These include duloxetine, doxepin, cyclobenzaprine, and buspirone. Plan Anticipate eventual discharge to home when diet has been advanced and well- tolerated. Hopefully soon. Admission and Anticipated Discharge Date Admission Date: April 07, 2024 Subjective Alert and oriented. No distress. Here KUB done this morning, April 17, looks better to me. She has been seen by surgery and has been started on clear liquid diet. IV fluids are discontinued. Will discontinue parenteral narcotics and use oxycodone on a as needed basis. Will continue intravenous digoxin and intravenous metoprolol for now and hopefully switch to oral dosing tomorrow, April 18. Review of Systems 2 Review of Systems: Constitutionalno fever or chills ENTno blurred vision, no double vision, no epistaxis, no sore throat Respiratoryno cough, no wheezing, no shortness of breath Cardiacno palpitations, no chest pain, no syncope Nataliia nausea, vomiting, diarrhea, melena, hematochezia GUno urinary retention, no urinary incontinence, no dysuria, no hematuria Musculoskeletalno joint pain, no muscle tenderness Skinno bruising, no rashes, no pruritus Neurono isolated weakness, no paresthesia, no weakness Psychno depression, no anxiety Physical Exam 2 Physical Exam: General-alert and oriented x3, no fever, no chills HEENT-head atraumatic and normocephalic, pupils equal and reactive to light, extraocular muscles intact Neck-no lymphadenopathy or thyromegaly, trachea midline Chest-clear to auscultation. No rales, wheezing or rhonchi Cardiac-irregular rhythm with controlled rate. Normal S1 and S2 Abdomen-normal bowel sounds, no hepatosplenomegaly Extremities-no cyanosis, clubbing, or edema Neuro-cranial nerves II through XII intact, motor and sensory function within normal limits, strength symmetrical, no focal deficits Psych-normal affect, normal mood Results & Data Results & Data Vital Signs (Past 12 Hours) Vital Signs Temp Pulse Pulse Resp BP BP BP 04/17/24 10:59 36.7 C 80 19 113/77 04/17/24 10:00 88 129/78 04/17/24 09:43 89 134/74 04/17/24 07:33 36.8 C 89 18 134/74 04/17/24 04:22 86 04/17/24 04:07 90 133/86 04/17/24 03:26 36.7 C 90 16 133/86 04/17/24 00:26 88 04/17/24 00:11 92 H 129/83 04/16/24 23:41 92 H Pulse Ox O2 Del Method 04/17/24 10:59 95 Room Air 04/17/24 10:00 04/17/24 09:43 04/17/24 07:33 95 Room Air 04/17/24 04:22 04/17/24 04:07 04/17/24 03:26 95 Room Air 04/17/24 00:26 04/17/24 00:11 04/16/24 23:41 Laboratory Results 04/17/24 07:17 04/17/24 07:17 PG Care Time/CCT Total # of Minutes Spent Total Time Spent with Patient: Total time spent is greater than 50% in coordination of care (as documented) at patient's floor/unit and/or counseling patient: Coding Level of Care Code 42573 SUB INP/OBS CARE 3/50MIN Diagnoses Small bowel obstruction K56.609 Atrial fibrillation with RVR I48.91 Generalized anxiety disorder F41.1
[2024-04-17] MEDS: oxyCODONE HCL IR 5 MG TAB (IMMEDIATE RELEASE) PO PRN (15:16)
--- NOTE | 2024-04-18 06:04 | Surgery Progress Note ---
Date of Service April 18, 2024 Assessment & Plan (1) Small bowel obstruction: Plan: Patient is s/p s/p Ex lap and release of small bowel obstruction on 04/07/24. Patient also with post-operative ileus which has started to resolve/improve. Clinically patient looks well and she was started on clear liquids yesterday and has tolerated without worsening abdominal pain, N/V and has return of bowel function. Patient requesting for something more substantial to eat today, will advance her to full liquids. (2) Ileus following gastrointestinal surgery: Admission and Anticipated Discharge Date Admission Date: April 07, 2024 Supervising Physician Co-Signing Physician Notes Advance to full liquids, she has been tolerating clears without nausea and vomiting Advance to a low fiber diet tomorrow if she continues with bowel function and no nausea or vomiting Subjective Patient feels well this morning and would like "more substantial food". She reports having a bowel movement after dinner last evening and she has been tolerating clears without any N/V Pain currently well controlled Physical Exam Constitutional: WD/WN, vitals as above Respiratory: normal respiratory effort, lungs clear to auscultation Cardiovascular: RRR, no murmur, no edema Gastrointestinal (Abdomen): Inspection/Auscultation: + abdominal surgical incision (midline incision without signs of overlying infection ); abdomen not distended Percussion/Palpation: abdomen soft; abdomen nontender and abdomen not firm Results & Data Vital Signs (Past 12 Hours) Vital Signs Temp Pulse Pulse Resp BP BP Pulse Ox 04/18/24 03:50 89 04/18/24 02:44 36.8 C 81 18 135/86 98 04/18/24 00:00 81 04/17/24 23:05 81 04/17/24 22:53 36.6 C 91 H 18 127/82 99 04/17/24 20:50 91 H 125/79 04/17/24 20:45 04/17/24 19:21 37.1 C 90 17 127/78 99 O2 Del Method 04/18/24 03:50 04/18/24 02:44 Room Air 04/18/24 00:00 04/17/24 23:05 04/17/24 22:53 Room Air 04/17/24 20:50 04/17/24 20:45 Room Air 04/17/24 19:21 Room Air PG Care Time/CCT Total # of Minutes Spent Total Time Spent with Patient: Total time spent is greater than 50% in coordination of care (as documented) at patient's floor/unit and/or counseling patient: Coding Level of Care Code 18411 Post Operative Follow-Up Diagnoses Small bowel obstruction K56.609 Ileus following gastrointestinal surgery K91.89; K56.7
[2024-04-18 07:15] LABS: Basophils # (auto) 0.05 K/uL (0.00-0.20); Basophils % (auto) 0.5 %; Eosinophils # (auto) 0.61 K/uL (0.00-0.50); Eosinophils % (auto) 5.7 %; Hematocrit (blood only) 23.8 % (37.0-47.0); Hemoglobin 7.7 g/dl (12.0-16.0); Immature Granulocytes # (auto) 0.04 K/uL (0.01-0.20); Immature Granulocytes % (auto) 0.4 %; Lymphocytes # (auto) 1.83 K/uL (1.20-3.40); Lymphocytes % (auto) 17.2 %; Mean Corpuscular Hemoglobin 18.7 pg (25.0-34.0); Mean Corpuscular Hgb Conc 32.4 g/dL (32.0-36.0); Mean Corpuscular Volume 57.9 fL (80.0-100.0); Monocytes # (auto) 0.78 K/uL (0.11-0.59); Monocytes % (auto) 7.3 %; Neutrophils # (auto) 7.31 K/uL (1.40-6.50); Neutrophils % (auto) 68.9 %; RDW Coefficient of Variation 14.9 % (11.5-14.5); RDW Standard Deviation 29.9 fL (36.4-46.3); Red Blood Count 4.11 M/uL (4.20-5.40); White Blood Count 10.62 K/ul (4.8-10.8)
[2024-04-18 07:37] LABS: BUN Creatinine Ratio 7.8 (10-20); Calcium 8.4 mg/dl (8.6-10.3); Potassium 3.6 mmol/L (3.5-5.1)
[2024-04-18 07:45] LABS: Mean Platelet Volume 9.3 fL (9.4-12.4); Platelet Count 551 K/uL (130-400)
[2024-04-18 07:47] LABS: Microcytosis Present; Polychromasia 1+; Target Cells 2+
--- NOTE | 2024-04-18 08:57 | XRay Report ---
XR KUB/Abdomen 1 view CLINICAL HISTORY: SBO TECHNIQUE: 1 view of the abdomen was obtained. Comparison: Comparison is made to abdomen radiograph 04/15/2024 FINDINGS: Lung bases are unremarkable. Degenerative changes are seen in the visualized skeleton. Left hip arthr oplasty is seen. Multiple dilated loops of small bowel are again seen. A moderate amount of stool is noted within the large bowel. IMPRESSION: Findings compatible with ongoing small bowel obstruction versus ileus. ACT 112: Negative or not required by law. Electronically signed by: Taiwo Francois M.D. 04/18/2024 8:56 AM
[2024-04-18] MEDS: METOPROLOL TARTRATE 25 MG TAB PO SCH (09:47)
[2024-04-18] MEDS: APIXABAN 5 MG TABLET PO SCH (09:48)
--- NOTE | 2024-04-18 11:00 | Hospitalist Progress Note ---
Date of Service April 18, 2024 Assessment & Plan (1) Small bowel obstruction: Plan: Postoperative day #11 after exploratory laparotomy. Appreciate general surgery consultation and recommendations. She was found to have acute mesenteric ischemia at the time of surgery. She may appears to developed a postoperative ileus causing the persistent KUB appearance of dilated bowel loops. Nausea and vomiting recurred April 15 has now resolved. Diet advanced by general surgery today, April 18, to full liquids. (2) Atrial fibrillation with RVR: Plan: chronic afib with eliquis Eliquis therapy. Intravenous digoxin and intravenous metoprolol switched to oral dosing. Eliquis has been restarted. Appreciate cardiology consultation and recommendations. Telemetry (3) Generalized anxiety disorder: Plan: Stable. Usual oral medications were restarted on April 14 and placed on hold again on April 15. These include duloxetine, doxepin, cyclobenzaprine, and buspirone. Plan Anticipate eventual discharge to home when diet has been advanced and well- tolerated. Hopefully soon. Admission and Anticipated Discharge Date Admission Date: April 07, 2024 Subjective Alert and oriented. She seems to be improving although the KUB appearance continues to show dilated bowel loops. She is not sleeping well and has restless leg syndrome. Her usual outpatient trazodone has been reordered along with addition of Requip at bedtime. Intravenous digoxin and intravenous metoprolol switched to oral dosing. Surgery has advance her diet from clears to full liquids. Postoperative day #11 after exploratory laparotomy for her SBO that was present on admission. Review of Systems 2 Review of Systems: Constitutionalno fever or chills ENTno blurred vision, no double vision, no epistaxis, no sore throat Respiratoryno cough, no wheezing, no shortness of breath Cardiacno palpitations, no chest pain, no syncope Nataliia nausea, vomiting, diarrhea, melena, hematochezia GUno urinary retention, no urinary incontinence, no dysuria, no hematuria Musculoskeletalno joint pain, no muscle tenderness Skinno bruising, no rashes, no pruritus Neurono isolated weakness, no paresthesia, no weakness Psychno depression, no anxiety Physical Exam 2 Physical Exam: General-alert and oriented x3, no fever, no chills HEENT-head atraumatic and normocephalic, pupils equal and reactive to light, extraocular muscles intact Neck-no lymphadenopathy or thyromegaly, trachea midline Chest-clear to auscultation. No rales, wheezing or rhonchi Cardiac-irregular rhythm with controlled rate. Normal S1 and S2 Abdomen-normal bowel sounds, no hepatosplenomegaly Extremities-no cyanosis, clubbing, or edema Neuro-cranial nerves II through XII intact, motor and sensory function within normal limits, strength symmetrical, no focal deficits Psych-normal affect, normal mood Results & Data Results & Data Vital Signs (Past 12 Hours) Vital Signs Temp Pulse Pulse Pulse Resp BP BP 04/18/24 08:19 94 H 108/60 04/18/24 08:04 90 130/79 04/18/24 07:15 37.1 C 90 87 16 130/79 04/18/24 03:50 89 04/18/24 02:44 36.8 C 81 18 135/86 04/18/24 00:00 81 04/17/24 23:05 81 Pulse Ox O2 Del Method 04/18/24 08:19 04/18/24 08:04 04/18/24 07:15 96 Room Air 04/18/24 03:50 04/18/24 02:44 98 Room Air 04/18/24 00:00 04/17/24 23:05 Laboratory Results 04/18/24 06:49 04/18/24 06:49 PG Care Time/CCT Total # of Minutes Spent Total Time Spent with Patient: Total time spent is greater than 50% in coordination of care (as documented) at patient's floor/unit and/or counseling patient: Coding Level of Care Code 62507 SUB INP/OBS CARE 3/50MIN Diagnoses Small bowel obstruction K56.609 Atrial fibrillation with RVR I48.91 Generalized anxiety disorder F41.1
[2024-04-18] MEDS: DIGOXIN ELIXIR 0.05MG/ML PO SCH (17:04)
[2024-04-18] MEDS: traZODone HCL 50 MG TAB PO SCH (20:00)
[2024-04-18] MEDS: rOPINIRole HCL 2 MG TABLET PO SCH (20:01)
[2024-04-19 06:02] LABS: Basophils # (auto) 0.05 K/uL (0.00-0.20); Basophils % (auto) 0.3 %; Eosinophils # (auto) 0.51 K/uL (0.00-0.50); Eosinophils % (auto) 3.3 %; Hematocrit (blood only) 22.8 % (37.0-47.0); Hemoglobin 7.5 g/dl (12.0-16.0); Immature Granulocytes # (auto) 0.05 K/uL (0.01-0.20); Immature Granulocytes % (auto) 0.3 %; Lymphocytes # (auto) 1.86 K/uL (1.20-3.40); Lymphocytes % (auto) 12.1 %; Mean Corpuscular Hemoglobin 18.9 pg (25.0-34.0); Mean Corpuscular Hgb Conc 32.9 g/dL (32.0-36.0); Mean Corpuscular Volume 57.6 fL (80.0-100.0); Monocytes # (auto) 0.98 K/uL (0.11-0.59); Monocytes % (auto) 6.4 %; Neutrophils # (auto) 11.94 K/uL (1.40-6.50); Neutrophils % (auto) 77.6 %; Nucleated RBC # (auto) 0.02 K/uL (0.00-0.12); Nucleated RBC % (auto) 0.1 %; RDW Coefficient of Variation 14.9 % (11.5-14.5); RDW Standard Deviation 29.7 fL (36.4-46.3); Red Blood Count 3.96 M/uL (4.20-5.40); White Blood Count 15.39 K/ul (4.8-10.8)
[2024-04-19 06:25] LABS: BUN Creatinine Ratio 11.1 (10-20); Calcium 8.4 mg/dl (8.6-10.3); Creatinine Clr Calc Pharmacy 112.3 ml/min; Potassium 3.8 mmol/L (3.5-5.1)
[2024-04-19 06:29] LABS: Hypochromasia Present; Mean Platelet Volume 9.5 fL (9.4-12.4); Microcytosis Present; Platelet Count 554 K/uL (130-400); Polychromasia 1+; Target Cells 1+
--- NOTE | 2024-04-19 06:30 | Surgery Progress Note ---
Date of Service April 19, 2024 Assessment & Plan (1) Small bowel obstruction: Plan: Patient is s/p s/p Ex lap and release of small bowel obstruction on 04/07/24. Patient also with post-operative ileus which has seemed to resolve at this time. Clinically patient looks well and she was started on full liquids yesterday and has tolerated without worsening abdominal pain, N/V and has return of bowel function. Patient requesting for increase in diet again this morning, will advance to low- fiber. Patient does have elevation in WBC today to 15, however has been afebrile. Will continue to trend for now. Admission and Anticipated Discharge Date Admission Date: April 07, 2024 Supervising Physician Co-Signing Physician Notes Advance to low fiber diet as she is tolerating her full's well Her white count is trending up but is afebrile and has really no abdominal complaints Will hold off on any imaging at this time and see how she tolerates this diet Subjective Patient doing well this morning, states she has no abdominal pain. Has been tolerating full liquids and still continues to pass gas and tells me she did have a BM yesterday. States she would like to try a regular diet today. WBC today elevated to 15 however she has remained afebrile. Physical Exam Constitutional: WD/WN, vitals as above Respiratory: normal respiratory effort, lungs clear to auscultation Cardiovascular: RRR, no murmur, no edema Gastrointestinal (Abdomen): Inspection/Auscultation: + abdominal surgical incision (midline incision without signs of overlying infection ); abdomen not distended Percussion/Palpation: abdomen soft; abdomen nontender and abdomen not firm Psychiatric: A+Ox3, euthymic affect Results & Data Vital Signs (Past 12 Hours) Vital Signs Temp Pulse Pulse Resp BP Pulse Ox O2 Del Method 04/19/24 02:53 36.7 C 86 18 132/84 96 Room Air 04/19/24 00:13 70 04/18/24 22:37 37 C 85 18 120/71 95 Room Air 04/18/24 20:05 Room Air 04/18/24 19:32 36.9 C 91 H 18 107/73 94 Room Air PG Care Time/CCT Total # of Minutes Spent Total Time Spent with Patient: Total time spent is greater than 50% in coordination of care (as documented) at patient's floor/unit and/or counseling patient: Coding Level of Care Code 55767 Post Operative Follow-Up Diagnoses Small bowel obstruction K56.609
[2024-04-19] MEDS ORDERED: methylPREDNISolone 125 MG/2 ML VIAL IV STA (09:41)
[2024-04-19] MEDS: PANTOprazole 40 MG TAB PO SCH (10:09)
[2024-04-19] MEDS: methylPREDNISolone 125 MG in SYRINGE 0 ML IV STA (10:10)
--- NOTE | 2024-04-19 10:22 | XRay Report ---
XR hand RT min 3V routine CLINICAL HISTORY: right thumb pain TECHNIQUE: 3 views of the right hand were obtained. Comparison: Comparison is made to right wrist radiographs 10/30/2022 FINDINGS: There is no evidence of an acute fracture. Degenerative changes are seen most prominent in the first carpometacarpal joint. Soft tissue swelling is seen. IMPRESSION: Degenerative changes are seen without evidence of acute abnormality. ACT 112: Negative or not required by law. Electronically signed by: Taiwo Francois M.D. 04/19/2024 10:20 AM
--- NOTE | 2024-04-19 10:23 | Hospitalist Progress Note ---
Date of Service April 19, 2024 Assessment & Plan (1) Small bowel obstruction: Plan: Postoperative day #12 after exploratory laparotomy. Appreciate general surgery consultation and recommendations. She was found to have acute mesenteric ischemia at the time of surgery. She developed a postoperative ileus causing the persistent KUB appearance of dilated bowel loops. Nausea and vomiting recurred April 15 and has now resolved. Diet advanced again by general surgery today, April 19. She is now on a low fiber diet. (2) Atrial fibrillation with RVR: Plan: chronic afib with eliquis Eliquis therapy. Intravenous digoxin and intravenous metoprolol switched to oral dosing. Eliquis has been restarted. Appreciate cardiology consultation and recommendations. Telemetry (3) Generalized anxiety disorder: Plan: Stable. Usual oral medications were restarted on April 14 and placed on hold again on April 15. These include duloxetine, doxepin, cyclobenzaprine, and buspirone. Medications can be restarted at discharge (4) Pain of right thumb: Plan: Swollen and tender right first MCP joint. X-ray pending. 1 dose of intravenous Solu-Medrol has been ordered. Plan Hopeful discharge to home tomorrow, April 20 Admission and Anticipated Discharge Date Admission Date: April 07, 2024 Subjective Alert and oriented. She is complaining of right thumb pain. The base of the right thumb is swollen and very tender. She denies any trauma. Symptoms far outweigh what would be expected with underlying arthritic changes. 1 dose of intravenous Solu-Medrol ordered. Surgery entry noted. Diet has been advanced. Hopefully she can go home tomorrow, April 20 Review of Systems 2 Review of Systems: Constitutionalno fever or chills ENTno blurred vision, no double vision, no epistaxis, no sore throat Respiratoryno cough, no wheezing, no shortness of breath Cardiacno palpitations, no chest pain, no syncope Nataliia nausea, vomiting, diarrhea, melena, hematochezia GUno urinary retention, no urinary incontinence, no dysuria, no hematuria Musculoskeletalbase of right thumb is swollen and markedly tender. No muscle tenderness Skinno bruising, no rashes, no pruritus Neurono isolated weakness, no paresthesia Psychno depression, no anxiety Physical Exam 2 Physical Exam: General-alert and oriented x3, no fever, no chills HEENT-head atraumatic and normocephalic, pupils equal and reactive to light, extraocular muscles intact Neck-no lymphadenopathy or thyromegaly, trachea midline Chest-clear to auscultation. No rales, wheezing or rhonchi Cardiac-irregular rhythm with controlled rate. Normal S1 and S2 Abdomen-normal bowel sounds, no hepatosplenomegaly Extremities-base of right thumb is swollen and markedly tender Neuro-cranial nerves II through XII intact, motor and sensory function within normal limits, strength symmetrical, no focal deficits Psych-normal affect, normal mood Results & Data Results & Data Vital Signs (Past 12 Hours) Vital Signs Temp Pulse Pulse Resp BP BP Pulse Ox 04/19/24 07:20 37.2 C 88 19 132/76 98 04/19/24 02:53 36.7 C 86 18 132/84 96 04/19/24 00:13 70 04/18/24 22:37 37 C 85 18 120/71 95 O2 Del Method 04/19/24 07:20 Room Air 04/19/24 02:53 Room Air 04/19/24 00:13 04/18/24 22:37 Room Air Laboratory Results 04/19/24 05:42 04/19/24 05:42 PG Care Time/CCT Total # of Minutes Spent Total Time Spent with Patient: Total time spent is greater than 50% in coordination of care (as documented) at patient's floor/unit and/or counseling patient: Coding Level of Care Code 46358 SUB INP/OBS CARE 3/50MIN Diagnoses Small bowel obstruction K56.609 Atrial fibrillation with RVR I48.91 Generalized anxiety disorder F41.1 Pain of right thumb M79.644
[2024-04-20 07:11] LABS: Basophils # (auto) 0.02 K/uL (0.00-0.20); Basophils % (auto) 0.1 %; Hematocrit (blood only) 23.3 % (37.0-47.0); Hemoglobin 7.4 g/dl (12.0-16.0); Immature Granulocytes # (auto) 0.07 K/uL (0.01-0.20); Immature Granulocytes % (auto) 0.4 %; Lymphocytes # (auto) 1.38 K/uL (1.20-3.40); Lymphocytes % (auto) 7.8 %; Mean Corpuscular Hemoglobin 18.3 pg (25.0-34.0); Mean Corpuscular Hgb Conc 31.8 g/dL (32.0-36.0); Mean Corpuscular Volume 57.5 fL (80.0-100.0); Monocytes # (auto) 0.78 K/uL (0.11-0.59); Monocytes % (auto) 4.4 %; Neutrophils # (auto) 15.55 K/uL (1.40-6.50); Neutrophils % (auto) 87.3 %; Nucleated RBC # (auto) 0.03 K/uL (0.00-0.12); Nucleated RBC % (auto) 0.2 %; RDW Standard Deviation 29.7 fL (36.4-46.3); Red Blood Count 4.05 M/uL (4.20-5.40)
[2024-04-20 07:19] LABS: Mean Platelet Volume 9.7 fL (9.4-12.4); Platelet Count 635 K/uL (130-400)
[2024-04-20 07:30] LABS: BUN Creatinine Ratio 25.9 (10-20); Creatinine Clr Calc Pharmacy 110.2 ml/min; Potassium 3.7 mmol/L (3.5-5.1)
--- NOTE | 2024-04-20 07:55 | Surgery Progress Note ---
Date of Service April 20, 2024 Assessment & Plan (1) Ileus following gastrointestinal surgery: Plan: Patient is s/p s/p Ex lap and release of small bowel obstruction on 04/07/24. Patient also with post-operative ileus which has seemed to resolve at this time. tolerating low fiber , no n/v +flatus +BM estela midline CDI , no s/s infection vss afebrile, pt recieved IV dose of Solu-medrol yesterday which could contribute to WBC increase at 17 Possible D/c today vs later in the week as above. feeling well. bowel fx returned. lily diet. no pain wbc likely secondary to steroid ok with me for d/c today. f/u with me in 2 weeks Admission and Anticipated Discharge Date Admission Date: April 07, 2024 Subjective pt denies n/v +flatus and Bm Review of Systems Constitutional: no fever and no chills Cardiovascular: no chest pain Gastrointestinal: no abdominal pain, no nausea and no vomiting Physical Exam Constitutional: cooperative and comfortable; no acute distress Respiratory: normal respiratory effort and able to speak in complete sentences; no respiratory distress Cardiovascular: Rate/Rhythm: regular rate Gastrointestinal (Abdomen): Inspection/Auscultation: + abdominal surgical incision (staple CDI ) Percussion/Palpation: abdomen soft Results & Data Vital Signs (Past 12 Hours) Vital Signs Temp Pulse Pulse Resp BP BP Pulse Ox 04/20/24 03:36 98.6 F 83 18 130/80 95 04/19/24 23:03 82 04/19/24 22:24 99.3 F 83 16 116/72 94 O2 Del Method 04/20/24 03:36 Room Air 04/19/24 23:03 04/19/24 22:24 Room Air Results CBC w Diff Results: RBC 4.05 M/uL (4.20-5.40) L 04/20/24 WBC 17.80 K/ul (4.8-10.8) H 04/20/24 Hgb 7.4 g/dl (12.0-16.0) L 04/20/24 Hct 23.3 % (37.0-47.0) L 04/20/24 MCV 57.5 fL (80.0-100.0) L 04/20/24 MCH 18.3 pg (25.0-34.0) L 04/20/24 MCHC 31.8 g/dL (32.0-36.0) L 04/20/24 RDW Standard Deviation 29.7 fL (36.4-46.3) L 04/20/24 RDW Coefficient of Variation 15.0 % (11.5-14.5) H 04/20/24 Plt Count 635 K/uL (130-400) H 04/20/24 MPV 9.7 fL (9.4-12.4) 04/20/24 Nucleated Red Blood Cells % (auto) 0.2 % 04/20 Nucleated RBC Absolute Count (auto) 0.03 K/uL (0.00-0.12) 1 Neutrophils (%) (Auto) 87.3 % 04/20/24 Lymphocytes (%) (Auto) 7.8 % 04/20/24 Monocytes # (Auto) 0.78 K/uL (0.11-0.59) H 04/20/24 Eosinophils # (Auto) 0.00 K/uL (0.00-0.50) 04/20/24 Immature Granulocyte % (Auto) 0.4 % 04/20/24 Neutrophils # (Auto) 15.55 K/uL (1.40-6.50) H 04/20/24 Lymphocytes # (Auto) 1.38 K/uL (1.20-3.40) 04/20/24 Monocytes # (Auto) 0.78 K/uL (0.11-0.59) H 04/20/24 Eosinophils # (Auto) 0.00 K/uL (0.00-0.50) 04/20/24 Basophils # (Auto) 0.02 K/uL (0.00-0.20) 04/20/24 Immature Granulocyte # (Auto) 0.07 K/uL (0.01-0.20) 4 Polychromasia 1+ 04/20/24 Hypochromasia Present 04/20/24 Poikilocytosis Present 06/21/23 Basophilic Stippling 1+ 04/16/24 Echinocytes 1+ 03/02/23 Anisocytosis Present 04/07/24 Microcytosis Present 04/20/24 Spherocytes 1+ 01/11/22 Target Cells 2+ 04/20/24 Tear Drop Cells 1+ 04/13/24 Ovalocytes 1+ 05/13/23 Dohle Bodies 1+ 03/21/23 Rouleau 1+ 03/20/23 Schistocytes 1+ 04/14/23 PG Care Time/CCT Total # of Minutes Spent Total Time Spent with Patient: Total time spent is greater than 50% in coordination of care (as documented) at patient's floor/unit and/or counseling patient: Coding Level of Care Code 96622 Post Operative Follow-Up Diagnoses Ileus following gastrointestinal surgery K91.89; K56.7
[2024-04-20 07:56] LABS: Hypochromasia Present; Microcytosis Present; Polychromasia 1+; Target Cells 2+
[2024-04-20 09:58] LABS: Ferritin 291.6 ng/ml (8-388)
[2024-04-20 10:36] VITALS: RESP 18; TEMP 98.2; O2SAT 96
--- NOTE | 2024-04-20 13:03 | Discharge Summary ---
Discharge Summary Date of Service April 20, 2024 Principal Dx & Hospital Course #1 = Principal Diagnosis (1) Small bowel obstruction: resolved s/p urgent ex lap and lysis of adhesions causing SBO 04/07; acute mesenteric ischemia found but no bowel resection needed, history of gastric bypass Had prolonged recovery due to development of ileus which is now resolved - general surgery following - tolerating low fiber diet; no nausea or vomiting - +flatus and BM - Afebrile, VSS, leukocytosis likely secondary to steroids for thumb pain - medically stable for discharge today 04/20; will need surgery follow up (2) Atrial fibrillation with RVR: History of chronic afib with Eliquis therapy and HTN - Intravenous digoxin and intravenous metoprolol switched to oral dosing 04/18 - Eliquis restarted 04/18 - Appreciate cardiology consultation and recommendations - can consider out patient afib ablation - Telemetry showed a fib with HR 70-100 on day of discharge - patient on metoprolol succinate either 100 mg BID or 50 mg BID (or both?) at home; patient is unsure at this time - was on Metoprolol to tartrate 25 mg twice daily during hospital stay - cardiology started patient on previous dose of digoxin 0.25 mg PO daily 04/18 - Will transition to 50 mg metoprolol succinate twice daily upon discharge - patient to have follow up with power and recovery supervisor and PCP (3) Generalized anxiety disorder: Stable; on duloxetine, doxepin, buspirone, trazodone, hydroxyzine prn - Oral medications were restarted on April 14 and placed on hold again on April 15 - medications restarted 04/20 insomnia - on melatonin and ramelteon as well as trazodone and doxepin HS - held during admission and resumed on discharge - resume home psychiatric medications 04/20 (4) Pain of right thumb: - Swollen and tender right first MCP joint - Xray showed degenerative changes; no acute fracture - was given 1 dose of methylprednisolone 04/19 with some relief-avoid further steroids given healing abdominal wound - continue Tylenol prn upon discharge, avoid NSAIDs in a gastric bypass patient (5) Hx of thalassemia: patient with history of being a thalassemia carrier and with a history of gastr ic bypass surgery - not on iron supplement at home - Hgb decreasing throughout hospital stay; currently 7.4 (baseline Hgb 8-9) - severely hypochromic microcytic CBC consistent with thalassemia - iron panel showed low iron of 19 and low TIBC indicating anemia of chronic disease but transferrin saturation low at 9% - IV iron transfusion 04/20 - recommend close PCP follow up and consider oral iron supplement or further IV iron as an outpatient (6) Hypothyroidism: - levothyroxine held on admission due to SBO - resumed 04/20 - Recent TSH 04/09/24 WNL Plan Chronic stable diagnoses: Gerd - continue home Pepcid Restless leg syndrome - continue ropinirole and restart cyclobenzaprine on discharge Dispo: discharge home with home health 04/20 after IV iron Notes For Next Care Provider Will need to check CBC and digoxin level as an outpatient in 1 week Medication Changes From Visit Added digoxin 0.25 mg daily Decrease dose of Toprol-XL to 50 Mg p.o. twice daily Admission HPI Per Admitting Provider The patient is a 63-year-old female with a past medical history including atrial fibrillation on chronic anticoagulation with apixaban, history of thalassemia, history of right femur osteomyelitis, hypertension, JACEY, history of diabetes, RLS, migraines, and history of gastric bypass. She presents to the emergency department with symptoms as noted above. CT scan of abdomen pelvis expressed concerns for a closed-loop small bowel obstruction, and patient is being taken emergently to the OR by general surgery Dr. Campuzano. Admission Exam Per Admitting Provider The patient is awake, alert and oriented 3, well developed and well nourished, normocephalic and atraumatic, lying in bed and in moderate distress secondary to abdominal pain HEENT--PERRL, EOMI, mucous membranes and oropharynx dry. Neck--supple. No JVD. No bruits. Thyroid normal, trachea midline, no adenopathy. Heart--tachycardic, irregularly irregular. No murmurs, rubs or gallops. Lungs--clear bilaterally, no respiratory distress, no accessory muscle use. Abdomen--decreased bowel sounds and soft. Generalized tenderness. Mildly distended and tympanitic Extremities--no cyanosis or clubbing. No edema. There are good distal pulses b/l. Dermatologic--normal skin turgor, normal color, no abnormal lymph nodes, no rash. Neurologic--cranial nerves II through XII grossly intact. Rheumatologic--normal range of motion. Psychiatric--normal affect. Discharge Exam The patient is awake, alert and oriented 3, well developed and well nourished, normocephalic and atraumatic, in no acute distress. Non-toxic appearing. HEENT- EOMI, mucous membranes moist. Hearing grossly intact. Heart-normal S1 and S2. No murmurs, rubs or gallops. Lungs-clear bilaterally, no respiratory distress, no accessory muscle use. Abdomen-normal bowel sounds and soft. No ascites noted. Non-tender. Extremities- no clubbing, cyanosis, or edema. Rheumatologic-normal range of motion. Psychiatric-normal affect. Discharge Plan Discharge Items Patient Disposition: Home - Home Health Services Reason For Visit: SBO, ATRIAL FIB WITH RVR Discharge Diagnosis: exploratory laparotomy release of small bowel obstruction Activity: Per Instructions section Lifting: No more than 10 pounds Bathing Comment: may shower; no soaking in tubs/pools x 2 weeks Exercise/Sports: Wait until after follow-up appointment Driving/Machine Use: no driving while taking narcotics for pain Non-emergency contact: Primary Care Provider and Surgeon Call non-emergency contact if: you have any medication questions, your pain is not controlled, you have a fever, your temperature is above 101.5, your wound has increased redness, your wound has increased drainage and your wound pain has increased Follow-up/Referrals: Judd Campuzano DO [Surgeon] - (Please call to schedule follow up in clinic within 2 weeks) Cyndy Don MD [Primary Care Provider] - (Follow up in 1-2 weeks. ) Diet: Low Fiber Star Attending Provider Instructions: You have surgical estela in place that will be removed at one of your follow up appointments, about 14 days from your surgery Addtl Firmware Architect Provider Instructions: You were seen in the hospital for a small bowel obstruction that has since resolved. You have been tolerating a low fiber diet well with a bowel movement the day of discharge. You are to follow-up with surgery 2 weeks after your surgery date of 04/07. As discussed whether you take 100 mg or 50 mg of metoprolol at home, you will continue with 50 mg metoprolol succinate twice daily on discharge and have close follow-up with your power and recovery supervisor and PCP. Many of your home psychiatric medications were held on admission due to the small bowel obstruction. You can resume these upon discharge. You can continue to take Tylenol as needed at home for your right thumb pain. During your hospital stay your hemoglobin was 7.4. You have do a history of thalassemia. Your iron panel also showed low iron. You received an iron transfusion 04/20 before discharge. I recommend close follow-up with your PCP. Pending Studies at Discharge: No Stand-Alone Forms: [facility], Smoking Cessation Medications and DC Order Prescriptions: New metoprolol succinate 50 mg tablet extended release 24 hr 50 mg PO BID Qty: 60 0RF digoxin [Digitek] 250 mcg (0.25 mg) tablet 0.25 mg PO DAILY Qty: 30 0RF Rx Instructions: Take at 1600 daily Continued buspirone 10 mg tablet 10 mg PO TID Qty: 270 3RF Eliquis 5 mg tablet 5 mg PO BID 90 Days Qty: 180 4RF furosemide [Lasix] 20 mg tablet 20 mg PO DAILY Qty: 90 3RF omeprazole 20 mg tablet,delayed release (DR/EC) 20 mg PO DAILY Qty: 90 3RF levothyroxine 75 mcg tablet 75 mcg PO DAILY Qty: 90 3RF cyclobenzaprine 10 mg tablet 10 mg PO TID PRN (Reason: muscle spasm) Qty: 30 0RF Centrum Silver 0.4 mg-300 mcg- 250 mcg Tablet 1 tab PO QAM Rx Instructions: Unable to verify OTC meds at this date/time. polyethylene glycol 3350 [Miralax] 17 gram powder in packet 17 g PO BID PRN (Reason: Constipation) Rx Instructions: Unable to verify OTC meds at this date/time. acetaminophen [Tylenol Extra Strength] 500 mg tablet 1,000 mg PO Q8 Rx Instructions: Unable to verify OTC meds at this date/time. cyanocobalamin (vitamin B-12) 1,000 mcg capsule 1,000 mcg PO QAM Rx Instructions: Unable to verify OTC meds at this date/time. ascorbic acid (vitamin C) [Vitamin C] 500 mg Tablet 500 mg PO DAILY Rx Instructions: Unable to verify OTC meds at this date/time. cholecalciferol (vitamin D3) [Vitamin D3] 125 mcg (5,000 unit) Tablet 125 mcg PO DAILY Rx Instructions: Unable to verify OTC meds at this date/time. sennosides-docusate sodium [Senna Plus] 8.6-50 mg Tablet 2 tab-cap PO BID Rx Instructions: Unable to verify OTC meds at this date/time. zinc 50 mg Tablet 50 mg PO DAILY Rx Instructions: Unable to verify OTC meds at this date/time. melatonin 10 mg Tablet 20 mg PO HS Rx Instructions: Unable to verify OTC meds at this date/time. guaifenesin [Mucinex] 600 mg Tablet Extended Release 12hr 600 mg PO Q12H Rx Instructions: Unable to verify OTC meds at this date/time. ketoconazole 2 % Cream 1 applic EXT TID PRN (Reason: rash under skin folds) Qty: 15 0RF atorvastatin 10 mg tablet 10 mg PO HS hydroxyzine HCl 50 mg tablet 50 - 100 mg PO TID PRN (Reason: Anxiety) doxepin 100 mg capsule 100 mg PO HS trazodone 150 mg tablet 150 mg PO QPM duloxetine 60 mg capsule,delayed release(DR/EC) 60 mg PO BID ramelteon 8 mg tablet 8 mg PO QPM Discontinued metoprolol succinate 100 mg tablet extended release 24 hr See Rx Instructions .ROUTE .COMPLEX Rx Instructions: Pt has been getting 100mg by mouth twice daily AND 50mg by mouth twice daily consistently for the past 3-4 months. Wirtten by two different doctors and filled by two different pharmacies. Unable to verify how pt is taking medication. metoprolol succinate 50 mg tablet extended release 24 hr See Rx Instructions .ROUTE .COMPLEX Rx Instructions: Pt has been getting 50mg by mouth twice daily AND 100mg by mouth twice daily consistently for the past 3-4 months. Wirtten by two different doctors and filled by two different pharmacies. Unable to verify how pt is taking medication. Discharge Orders: Discharge Order (Routine); Ordered 04/20/24 Ordered By: Sophia Adamson Admission Data Admit Date/Time: 04/07/24 20:51 Attending Provider: Karly Coats Admit Provider: Luke Arambula Primary Care Provider: Cyndy Don Other Providers: Judd Campuzano; Luke Arambula Hospital Stay Data Consultations 04/07/24 20:13 Consult General Surgery Stat ED Decision to Admit Stat 04/09/24 07:23 Consult Cardiology Routine Procedures Performed Operation Date: 04/07/24 21:30 Actual Procedures p reverted to Laparotomy, Release of small bowel obstruction and enterolysis(Not Applicable) - Judd Campuzano DO s Exploratory Laparoscopy (Not Applicable) - Judd Campuzano, DO Discharge Instructions Given to Patient (Per Discharging Provider) You have surgical estela in place that will be removed at one of your follow up appointments, about 14 days from your surgery Supervising Physician Co-Signing Physician Notes PA Supervision Note: I personally saw and examined the patient. I verified all felton points and agree with BLANCA Adamson with the following exceptions and/or additions: S-patient feeling well, no abdominal pain, moving bowels, no nausea or vomiting, tolerating diet. O- Vitals reviewed Gen: AAOx3, NAD HEENT: Anicteric sclerae, EOMI CV: Irregularly irregular, no mgr nl S1S2 Pulm: CTAB no wcr Abd: +BS soft NT ND no masses or hernias, lower midline incision with dressing over top clean dry and intact Ext: No edema Skin: No rashes, warm/dry Neuro: Full strength throughout CBC, BMP reviewed [id number]old female here with small bowel obstruction caused from adhesions from previous abdominal surgery. Had prolonged recovery due to postoperative ileus after lysis of adhesions. Doing very well and is stable for discharge to home Total Time Total Time Spent Total Time Spent (In Minutes): 50 mins Total Time Includes: Examination of the Patient, Discharge Planning and Medication Reconciliation Coding [place] [id number] INP/OBS DISCH >30 MIN Patient Type Established Medical Decision Making Moderate Complexity Diagnoses Small bowel obstruction K56.609 Atrial fibrillation with RVR I48.91 Generalized anxiety disorder F41.1 Pain of right thumb M79.644 Hx of thalassemia Z86.2 Hypothyroidism E03.9
[2024-04-20] MEDS: ACETAMINOPHEN 325 MG TAB PO PRN (13:05)
[2024-04-20] MEDS: IRON SUCROSE 300 MG in SODIUM CHLORIDE 0.9% 250 ML IV ONE (13:43)
[2024-04-20] MEDS: busPIRone 5 MG TAB PO SCH (13:43)
[2024-04-20] MEDS: LEVOTHYROXINE SODIUM 75 MCG TABLET PO SCH (14:24)
[2024-04-20 16:43] VITALS: BP 116/72; PULSE 90
[2024-04-20] MEDS ORDERED: DULoxetine HCL 60 MG CAP PO SCH (21:00)
[2024-04-20] MEDS ORDERED: DOXEPIN HCL 50 MG CAPSULE PO SCH (21:00)
--- NOTE | 2024-04-21 10:10 | Coding Query ---
Your help is needed for correct coding of this account; please clarify if the patients Post-operative Ileus was: (x ) expected out of the surgery ( ) unexpected complication from the surgery ( )other please specify Thank you RICH Tinajero CCS
== END 2024-04-20 17:37 | disposition home health service (06) | DRG 335 ==
LOC: ED 14:58 → OR 20:30 → SUATTDRO 20:51 → 2S 20:51